=== PATIENT | male | born 1955 | race Caucasian/White ===

== ENCOUNTER → 2016-11-15 | Outpatient (CLI) | payer MEDICARE, MEDICAID ==
[~2016-11-15] MED LIST: ADVAIR 250/5028 PUFF IN; ALBUTEROL200 PUFFS/ IH; AMLODIPINE10 MG PO; AMOXICILLIN 50500 MG PO; ASPIRIN CHILDRE81 M1 PO; AUGMENTIN 875-1 EACH PO; AUGMENTIN1 TA2 PO; BACTRIM DS 8001 TA1 PO; CARVEDILOL6.25 MG PO; CIPRO 500MG TA500 MG PO; CLONIDINE 0.1M0.1 MG PO; CLONIDINE HYDR0.1 MG PO; COREG25 M1 PO; COUMADIN 10MG T10 MG PO; COUMADIN 5MG TAB5 MG PO; COUMADIN 7.5MG7.5 MG PO; CRESTOR20 MG PO; CYMBALTA30 MG PO; DEPAKOTE 250MG250 MG PO; DIABETA2.5 M1 PO; EFFEXOR XR 75MG75 MG PO; EFFEXOR XR150 MG PO; FENOFIBRATE145 MG PO; FISH OIL CONC1000 MG PO; FLAGYL 500MG.500 MG PO; FLEXERIL10 MG PO; GABAPENTIN 600600 MG PO; GLYBURIDE2.5 MG PO; HUMALOG MIX 50/10 ML SC; HUMALOG100 U/M1 SC; HYCODAN 1.5 MG-1 TAB PO; ISOSORBIDE30 MG PO; KEFLEX 500MG.500 MG PO; LEVEMIR100 U/M2 SC; LEVEMIR100 U/ML SC; LISINOPRIL 20MG20 MG NG; LISINOPRIL20 MG PO; LORTAB 5/500 501 TAB PO; LORTAB 500 MG-71 TAB PO; LOTREL 10 MG-401 CAP PO; LYRICA50 MG PO; LYRICA75 MG PO; MEDROL 4MG. DOSE4 MG PO; NASONEX0.05 MG/AC NS; NEURONTIN600 MG PO; Novolog100 U/ML SC; OMEPRAZOLE40 MG PO; OXYCODONE HCL10 M1 PO; OXYCONTIN20 M1 PO; PERCOCET 10 MG1 EACH PO; PERCOCET 650 MG1 TAB PO; PREDNICOT10 MG PO; PREDNISONE 20MG20 MG PO; PYRIDIUM 200MG200 MG PO; RESTORIL 30MG C30 MG PO; SIMVASTATIN40 MG PO; SINGULAIR 10 MG10 MG PO; TAMSULOSIN HYD0.4 M1 PO; TAMSULOSIN HYD0.4 MG PO; TEGRETOL 200MG200 MG PO; TOPAMAX100 MG PO; TOPAMAX50 MG PO; TOPIRAMATE25 MG PO; TRICOR 145 MG145 MG NG; VALIUM5 MG PO; VENLAFAXINE HCL75 M1 PO; VENLAFAXINE HYD75 M1 PO; VENLAFAXINE37.5 MG PO; VITAMIN D31000 IU PO; WARFARIN SOD5 MG PO; XANAX 0.5MG TA0.5 MG PO; ZITHROMAX Z-PA250 M1 PO; ZITHROMAX500 MG PO; ZOCOR20 MG PO; ZOFRAN4 MG PO
--- NOTE | 2016-11-15 16:43 | CARDIOVASCULAR REPORT ---
"Venous Exam Indications: 729.5 Pain in limb. IMPRESSIONS 1. There is no evidence of significant reflux. 2. No evidence of deep or superficial vein thrombosis involving the veins of the left upper extremity History: PMH: Deep vein thrombosis. Pulmonary embolus. Risk factors: Current tobacco use. Obese. PT ON ASA 81MG AND WARFIN Left upper extremity venous duplex. Doppler flow study including spectral analysis, color and antony scale imaging. Location: Vascular laboratory. Patient status: Outpatient. Tables: Venous flow and imaging: + + + |Location |Flow properties | + + + |Left internal jugular|Normal phasicity; spontaneous; compressible | + + + |Left subclavian |Normal phasicity; spontaneous; normal | | |augmentation; compressible | + + + |Left axillary |Normal phasicity; spontaneous; normal | | |augmentation; compressible | + + + |Left brachial |Normal phasicity; spontaneous; normal | | |augmentation; compressible | + + + |Left cephalic |Normal phasicity; spontaneous; normal | | |augmentation; compressible | + + + |Left basilic |Normal phasicity; spontaneous ; normal | | |augmentation; compressible | + + + |Left radial |Compressible | + + + |Left ulnar |Compressible | + + + (Report amended ) Electronically signed by: Saúl Gaspar [id number]"
== END ==
LOC: RT 16:06
DX: M79.89 Other specified soft tissue disorders (principal)

== ENCOUNTER 2017-06-01 17:56 | Emergency (ER) | payer MEDICARE, MEDICAID ==
[~2017-06-01] VITALS: Ht 190.5 cm; Wt 136.1 kg
[2017-06-01] MEDS ORDERED: AUGMENTIN 875-1 EACH PO (18:53)
[2017-06-01] MEDS ORDERED: ERYTHROMYC3.5 GM/TUB OP (18:54)
[2017-06-01] MEDS ORDERED: ETODOLAC200 MG PO (18:55)
--- NOTE | 2017-06-01 18:55 | Emergency Room Report ---
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 N Clinical Suspician of Infection? N Mental Status: 1 - Regular (Normal Baseline) Sepsis Risk:Low Sepsis Risk Have you (or family members/close friends) recently traveled outside the [place]? N If Yes, where/when: Have you had exposure to infectious disease within the past month? TB? Other? Specify: Source patient, RN notes reviewed, family, RN/MD Exam Limitations no limitations Comment This is a 61-year-old male patient presenting to the emergency room with a flareup of his chronic cervical pain, also itchy eyes and congestion for the past 2-3 days. Patient stated that he has been in pain management before, however he was terminated from the clinic due to failure to show up for a pill count, while being out of state. Patient denies any recent travel or exposure to sick contacts. ALLERGIES Coded Allergies: No Known Allergies (06/01/17) Home Medications Active Scripts OXYCODONE HCL (Oxycodone HCl) 10 MG PO 5XDAY PRN pain #150 TAB Prov: 12/08/15 Cyclobenzaprine Hcl (Flexeril) 5 MG PO BID #6 TAB Prov: 11/17/16 Albuterol (Albuterol 90MCG/Puff Inhaler) 1 PUFF IH QID #1 INH Prov: 07/23/15 Montelukast Sodium (Singulair 10MG) 10 MG PO DAILY #30 TAB Prov: 07/23/15 ONDANSETRON HCL (Zofran 4MG Tab) 4 MG PO Q6HP PRN nausea/vomiting #24 TAB Prov: 10/12/13 Reported Medications VENLAFAXINE HCL (Effexor XR 150MG) 150 MG PO QAM Carvedilol (Coreg) 25 MG PO BID Lisinopril 40 MG PO DAILY #30 WARFARIN SOD (Warfarin 5MG) 5 MG PO T,S,SUN Omeprazole (Omeprazole 40MG) 40 MG PO DAILY TAMSULOSIN HCL (Tamsulosin 0.4MG) 0.4 MG PO QHS Amlodipine Besylate (Amlodipine) 10 MG PO DAILY Oxycodone 10 Mg\[id number] (Oxycodone-Acetaminophen 10-325) 1 TAB PO 5XDAILYP PRN CHRONIC PAIN CHOLECALCIFEROL (VITAMIN D3) (Vitamin D) 1,000 IUNITS PO DAILY Fish Oil (Fish Oil Concentrate) 1,000 MG PO BID Rosuvastatin Calcium (Crestor) 40 MG PO QHS Insulin Detemir (Levemir 10ML VIAL) 0 UNITS SC DAILY INSULIN ASPART (Novolog) 4 U SC AC Alprazolam (Xanax 0.5MG) 0.5 MG PO BID Clonidine Hcl (Clonidine) 0.1 MG PO DAILY Pregabalin (Lyrica 75MG) 75 MG PO BID WARFARIN SOD (Warfarin 5MG) 7 MG PO DAILY VENLAFAXINE HCL (Venlafaxine HCl ER) 75 MG PO QHS FENOFIBRATE NANOCRYSTALLIZED (Fenofibrate) 145 MG PO DAILY #30 Simvastatin (Simvastatin 40MG Tab) 20 MG PO DAILY #30 Isosorbide Mononitrate (Isosorbide Mononitrate ER) 30 MG PO DAILY #30 FLUTICASONE/SALMETEROL (Advair 250-50 Diskus) 1 PUFF IN BID History Medical History General CAD? No Angina: No MA: No Hypertension? Yes Hyperlipidemia? Yes CHF? No DVT? Yes PE? Yes COPD? Yes Asthma? No Anemia? No GERD? Yes Gastric ulcers? No GI Bleed? No Hernia? No Thyroid Problems? No Hypothyroidism? No CVA? No Seizures? No Diabetes? Yes Insulin Dependent: Yes Insulin Pump: No Home FSBS? Yes Renal Insuffiency? No End Stage Renal Disease? No UTI? No Stones? No BPH? Yes GB Disease: No Nephritic Syndrome? No Asplenia? No Hepatitis? No Sickle Cell Disease? No Arthritis? No Migraines? No Cataracts? No Glaucoma? No MRSA? No HIV? No TB? No Anxiety? Yes Depression? 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 No Immunization Hx Ped.Immunizations UTD Yes DT/Tetanus 1-4 YRS Surgical Hx Previous Surgery?Y KIDNEY REMOVED SHOULDER STOMACH SURGERY LEFT ELBOW RIGHT ARM Back Surgery LEFT KIDNEY STANISLAV FILTER LEFT PARTIAL KIDNEY STOMACH SURGERY BACK SURGERY LUMBAR Social History Smoking Hx Smoker: Current Every Day Smoker Tobacco: Yes Type Cigarettes Packs/day 1 1/2 - 2 Packs Alcohol Alcohol: No Review of Systems All Other Systems Reviewed and Negative Eyes drainage ENT nose congestion, throat pain. Musculoskeletal see HPI, neck pain Physical Exam Vital Signs Vital Signs Date Time Temp Pulse Resp B/P Pulse O2 O2 Flow FiO2 Ox Delivery Rate 06/01 1942 97.5 61 18 176/99 95 06/01 1929 18 06/01 1811 97.9 88 18 178/95 98 General Appearance normal appearance, WD/WN, mild distress Eye Exam - bilateral eye PERRL, bilateral eye EOMI, bilateral eye eyelid inflammation, bilateral eye other (hyperemic conjunctivae) Ear, Nose, Throat hearing grossly normal, normal ENT inspection, nasal congestion, pharyngeal erythema Neck normal inspection, supple, full range of motion, paraspinal cervical tenderness Respiratory Status Yes: trachea midline, chest symmetrical, non tender chest. No: respiratory distress. Lung Sounds bilateral: normal breath sounds, lungs clear. 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 No Comment She appears in stable medical condition, no acute distress. Advised patient of need to follow-up on his PCPs referral to a new pain clinic, will say he home with prescription for eye ointment and oral antibiotics. If no better to follow- up with PCP within 2 days. Results/Orders Current Medication Orders Sig/Silas Start time Last Medication Dose Route Stop Time Status Admin Miscellaneous 0 .STK-MED ONE 06/01 1922 DC XX Amoxicillin/ 0 .STK-MED ONE 06/01 1921 DC Clavulanate Potassium PO Ondansetron HCl 0 .STK-MED ONE 06/01 1921 DC .ROUTE Morphine Sulfate 0 .STK-MED ONE 06/01 1918 DC .ROUTE Amoxicillin/ 500 MG ONCE ONE 06/010 DC 06/01 Clavulanate Potassium PO 06/01 Erythromycin 1 GM ONCE ONE 06/01 1900 DC 06/01 OP 06/01 Morphine Sulfate 8 MG ONCE ONE 06/01 1900 DC 06/01 IM 06/01 Ondansetron HCl 4 MG ONCE ONE 06/01 1900 DC 06/01 IM 06/01 Departure Departure Time of Disposition 185 Disposition DC Home or Self Care(routine) Clinical Impression Primary Impression: Sinusitis Qualifiers: Sinusitis location: maxillary Chronicity: acute Recurrence: non- recurrent Qualified Code: J01.00 - Acute maxillary sinusitis, unspecified Secondary Impressions: Chronic cervical pain Conjunctivitis Qualifiers: Conjunctivitis type: chronic Chronic conjunctivitis type: bacterial Laterality: bilateral Qualified Code: H10.403 - Unspecified chronic conjunctivitis, bilateral Condition STABLE Referrals RADHA MITCHELL (Family): Tomorrow[facility]Call Office Patient Instructions DI for Chronic Pain -- Adult, DI for Conjunctivitis, DI for Sinusitis Additional Instructions Please call Dr. Mitchell's office and follow-up on the referral to pain management in the morning. Please take the medications prescribed as instructed. If no better follow-up with PCP in 2-3 days. Discharge Counseling Counseled pt/family regarding diagnosis, medications/RX, home care, follow up needs Comment Please call Dr. Mitchell's office and follow-up on the referral to pain management in the morning. Please take the medications prescribed as instructed. If no better follow-up with PCP in 2-3 days. Prescriptions Current Visit Scripts Amoxicillin/Potassium Clav (Augmentin 875-125 Tablet) 1 EACH PO BID #20 TAB Erythromycin (Erythromycin Ophth Oint 3.5GM Tube) 1 GM OP QID #1 OIN Ref 1 use 1/2 inch in each subconjunctival sac 4x/day for the next 10 days Etodolac 200 MG PO QIDP PRN pain #20 CAP ED Critical Care Critical Care No at [id number]
[2017-06-01 19:42] VITALS: BP 176/99
== END 2017-06-01 19:42 | disposition home or self-care (01) ==
LOC: ER 17:56
DX: J01.00 Acute maxillary sinusitis, unspecified (principal); H10.403 Unspecified chronic conjunctivitis, bilateral; I10 Essential (primary) hypertension; J44.9 Chronic obstructive pulmonary disease, unspecified; K21.9 Gastro-esophageal reflux disease without esophagitis; E11.9 Type 2 diabetes mellitus without complications; Z79.4 Long term (current) use of insulin; F41.8 Other specified anxiety disorders; Z72.0 Tobacco use
CPT/HCPCS: J2405

== ENCOUNTER 2017-07-01 21:07 | Emergency (ER) | payer MEDICARE, MEDICAID ==
[~2017-07-01] VITALS: Ht 190.5 cm; Wt 137.0 kg
[2017-07-01 21:34] LABS: HEMOGLOBIN 14.5 g/dL (14.1-18.0); LYMPH # 1.5 K/mm3 (0.7-4.5); LYMPH % 20.8 % (10-50)
[2017-07-01 22:07] LABS: BUN 22 mg/dL (7-18); GFR (ESTIMATED) 28 ML/MIN (>60)
--- NOTE | 2017-07-01 22:26 | Emergency Room Report ---
History of Present Illness Time Seen by 2109 Presenting Problem in Triage Pt arrived:Walked Presenting Problem:MIDLINE CP THAT RADIATES TO THE LEFT SIDE OF CHEST AND DOWN HIS RIGHT ARM AND LEG. 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 N Clinical Suspician of Infection? N Mental Status: 1 - Regular (Normal Baseline) Sepsis Risk: Have you (or family members/close friends) recently traveled outside the [place]? N If Yes, where/when: Have you had exposure to infectious disease within the past month? N TB? Other? Specify: Source patient, RN notes reviewed, old records Exam Limitations no limitations Comment pt with lower ant chest pain over the last few days - pt has hx of diabetes and htn - he reports pain as sharp and nonradiating - pt with neg cath in 2012 and maybe gxt last couple of yrs Cardiac Chest Pain Chest pain indicative of cardiac No Timing/Duration this evening Severity moderate ALLERGIES Coded Allergies: No Known Allergies (06/01/17) Home Medications Active Scripts OXYCODONE HCL (Oxycodone HCl) 10 MG PO 5XDAY PRN pain #150 TAB Prov: 12/08/15 Cyclobenzaprine Hcl (Flexeril) 5 MG PO BID #6 TAB Prov: 11/17/16 Albuterol (Albuterol 90MCG/Puff Inhaler) 1 PUFF IH QID #1 INH Prov: 07/23/15 Montelukast Sodium (Singulair 10MG) 10 MG PO DAILY #30 TAB Prov: 07/23/15 Amoxicillin/Potassium Clav (Augmentin 875-125 Tablet) 1 EACH PO BID #20 TAB Prov: 06/01/17 Erythromycin (Erythromycin Ophth Oint 3.5GM Tube) 1 GM OP QID #1 OIN Ref 1 Prov: 06/01/17 ONDANSETRON HCL (Zofran 4MG Tab) 4 MG PO Q6HP PRN nausea/vomiting #24 TAB Prov: 10/12/13 Discontinued Scripts Etodolac 200 MG PO QIDP PRN pain #20 CAP Prov: 06/01/17 DC: 06/30/17 0000 Reported Medications VENLAFAXINE HCL (Effexor XR 150MG) 150 MG PO QAM Carvedilol (Coreg) 25 MG PO BID Lisinopril 40 MG PO DAILY #30 WARFARIN SOD (Warfarin 5MG) 5 MG PO T,S,SUN Omeprazole (Omeprazole 40MG) 40 MG PO DAILY TAMSULOSIN HCL (Tamsulosin 0.4MG) 0.4 MG PO QHS Amlodipine Besylate (Amlodipine) 10 MG PO DAILY Oxycodone 10 Mg\[id number] (Oxycodone-Acetaminophen 10-325) 1 TAB PO 5XDAILYP PRN CHRONIC PAIN CHOLECALCIFEROL (VITAMIN D3) (Vitamin D) 1,000 IUNITS PO DAILY Fish Oil (Fish Oil Concentrate) 1,000 MG PO BID Rosuvastatin Calcium (Crestor) 40 MG PO QHS Insulin Detemir (Levemir 10ML VIAL) 0 UNITS SC DAILY INSULIN ASPART (Novolog) 4 U SC AC Alprazolam (Xanax 0.5MG) 0.5 MG PO BID Clonidine Hcl (Clonidine) 0.1 MG PO DAILY Pregabalin (Lyrica 75MG) 75 MG PO BID WARFARIN SOD (Warfarin 5MG) 7 MG PO DAILY VENLAFAXINE HCL (Venlafaxine HCl ER) 75 MG PO QHS FENOFIBRATE NANOCRYSTALLIZED (Fenofibrate) 145 MG PO DAILY #30 Simvastatin (Simvastatin 40MG Tab) 20 MG PO DAILY #30 Isosorbide Mononitrate (Isosorbide Mononitrate ER) 30 MG PO DAILY #30 FLUTICASONE/SALMETEROL (Advair 250-50 Diskus) 1 PUFF IN BID History Medical History General CAD? No Angina: No [place]: No Hypertension? Yes Hyperlipidemia? Yes CHF? No DVT? Yes PE? Yes COPD? Yes Asthma? No Anemia? No GERD? Yes Gastric ulcers? No GI Bleed? No Hernia? No Thyroid Problems? No Hypothyroidism? No CVA? No Seizures? No Diabetes? Yes Insulin Dependent: Yes Insulin Pump: No Home FSBS? Yes Renal Insuffiency? No End Stage Renal Disease? No UTI? No Stones? No BPH? Yes GB Disease: No Nephritic Syndrome? No Asplenia? No Hepatitis? No Sickle Cell Disease? No Arthritis? No Migraines? No Cataracts? No Glaucoma? No MRSA? No HIV? No TB? No Anxiety? Yes Depression? 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 No Immunization Hx DT/Tetanus 1-4 YRS Surgical Hx Previous Surgery?Y KIDNEY REMOVED SHOULDER STOMACH SURGERY LEFT ELBOW RIGHT ARM Back Surgery LEFT KIDNEY STANISLAV FILTER LEFT PARTIAL KIDNEY STOMACH SURGERY BACK SURGERY LUMBAR Social History Smoking Hx Smoker: Current Every Day Smoker Tobacco: Yes Type Cigarettes Packs/day 1 1/2 - 2 Packs Are you/the child exposed to second-hand smoke: Yes Alcohol Alcohol: No Drugs none Additionial History Additional History was seen at [facility] yesterday and was felt pain was resp related- Review of Systems All Other Systems Reviewed and Negative Constitutional denies fever Eyes denies drainage ENT denies: ear discharge, epistaxis, throat pain. Respiratory denies cough, denies shortness of breath, denies wheezing Cardiovascular see HPI, chest pain, denies palpitations, denies syncope Gastrointestinal denies abdominal pain, denies diarrhea, denies vomiting Genitourinary denies: dysuria, frequency, hesitancy, hematuria. Musculoskeletal denies back pain, denies joint pain, denies joint swelling, denies neck pain Skin denies rash Psychiatric/Neurological denies headache, denies seizure Physical Exam Vital Signs Vital Signs Date Time Temp Pulse Resp B/P Pulse O2 O2 Flow FiO2 Ox Delivery Rate 07/018 98.8 70 20 153/82 97 07/01 2330 70 20 153/82 97 07/01 2205 20 07/01 2201 78 20 153/82 97 07/011 98.8 78 29 149/78 97 - WBC >12,000 or <4,000 or 10% bands? 2 or more SIRS Criteria Met? B/P:153/82 MAP:101 Creatinine >2.0? UA output<0.5ml/kg/hr for 2 hrs? Platelet count >100,000? Lactate >2.0mmol/1? INR >1.2 or PTT > than 60 sec? Evidence of Organ Dysfunction? Provider documented clinical suspician of infection? N Sepsis Criteria Count: 1 Sepsis Risk: General Appearance no apparent distress Eye Exam - bilateral eye PERRL, bilateral eye EOMI Ear, Nose, Throat normal ENT inspection Neck supple Respiratory Status No: respiratory distress. Lung Sounds bilateral: lungs clear. 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 No Results/Orders Laboratory Tests 07/01/172319: Troponin I < 0.02 07/01/172109: Sodium 139, Potassium 4.4, Chloride 103, Carbon Dioxide 28, BUN 22 H, Creatinine 2.4 H, Estimated Creat Clear 62, Estimated GFR (MDRD) 28, Glucose 135 H, Calcium 7.7 L, Total Bilirubin 0.4, AST 13 L, ALT 23, Alkaline Phosphatase 36 L, Creatine Kinase 165, CK-MB (CK-2) Rel Index 0.8, CK and CKMB Interp 1.4, Troponin I < 0.02, Total Protein 6.1 L, Albumin 3.0 L, Globulin 3.1, Albumin/Globulin Ratio 1.0 L, PT 35.8 H, INR 3.27 H, APTT 36.1 H, WBC 7.1, RBC 4.63, Hgb 14.5, Hct 42.1, MCV 90.9, RDW 13.3, Plt Count 122 L, MPV 8.6 , Gran % 69.2, Gran # 4.9, Lymphocytes % 20.8, Monocytes % 6.9, Eosinophils % 2.5, Basophils % 0.6, Lymphocytes # 1.5, Monocytes # 0.5, Eosinophils # 0.2, Basophils # 0.0, PUBS MCHC 34.6, MCH 31.4 H Current Medication Orders Sig/Silas Start time Last Medication Dose Route Stop Time Status Admin Famotidine 0 .STK-MED ONE 07/01 2250 DC IV Metoclopramide HCl 0 .STK-MED ONE 07/01 2250 DC .ROUTE Famotidine 20 MG ONCE ONE 07/01 2245 DC 07/01 IV 07/01 2246 225 Metoclopramide HCl 10 MG ONCE ONE 07/01 2245 DC 07/01 IVP 07/01 2246 225 Sodium Chloride 8 ML ONCE ONE 07/015 DC 07/01 IV 07/01 2246 225 Nitroglycerin 0.4 MG ONCE ONE 07/01 2215 DC 07/01 SL 07/01 Nitroglycerin 0 .STK-MED ONE 07/01 2204 DC SL Aspirin 325 MG ONCE ONE 07/01 2130 DC 07/01 PO 07/01 Sodium Chloride 10 ML PRN PRN 07/01 2130 AC IV 07/02 2126 Aspirin 0 .STK-MED ONE 07/01 2119 DC .ROUTE Aspirin 0 .STK-MED ONE 07/01 2117 DC .ROUTE Orders Procedure Date/time Status TROPONIN I 07/01 2316 Complete PARTIAL THROMBOPLASTIN TIME 07/01 2225 Complete PROTHROMBIN TIME 07/01 2225 Complete 12 LEAD EKG-JULISSA (INITIAL) 07/01 2126 Active ELECTROCARDIOGRAM REQUEST 07/01 2126 Active CHEST-PORTABLE 07/01 2126 Active IV SALINE LOCK 07/01 2126 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 of ischemic chgs XRAY/CT/US XRAY/CT/US XRAY chest XR interpretation by reviewed by me Xray Results normal/NAD Departure Departure Time of Disposition 0000 Disposition DC Home or Self Care(routine) Clinical Impression Primary Impression: Chest pain Qualifiers: Chest pain type: other chest pain Qualified Code: R07.89 - Other chest pain Secondary Impressions: Renal insufficiency Condition STABLE Referrals RADHA TATE (Family) discussed with dr her Patient Instructions DI for Chest Pain Additional Instructions use regular meds and see card at tuesday at 0900 Discharge Counseling Counseled pt/family regarding diagnosis, test results, medications/RX, follow up needs ED Critical Care Critical Care No at 0002
--- NOTE | 2017-07-01 22:26 | Emergency Room Report ---
History of Present Illness Time Seen by [id number] Presenting Problem in Triage Pt arrived:Walked Presenting Problem:MIDLINE CP THAT RADIATES TO THE LEFT SIDE OF CHEST AND DOWN HIS RIGHT ARM AND LEG. PT STATED HE WAS DX WITH PNU YESTERDAY AND WAS TOLD IT WAS CAUSING THE CHEST PAIN (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 N Clinical Suspician of Infection? N Mental Status: 1 - Regular (Normal Baseline) Sepsis Risk: Have you (or family members/close friends) recently traveled outside the [place]? N If Yes, where/when: Have you had exposure to infectious disease within the past month? N TB? Other? Specify: Source patient, RN notes reviewed, old records Exam Limitations no limitations Comment pt with lower ant chest pain over the last few days - pt has hx of diabetes and htn - he reports pain as sharp and nonradiating - pt with neg cath in 2012 and maybe gxt last couple of yrs Cardiac Chest Pain Chest pain indicative of cardiac No Timing/Duration this evening Severity moderate ALLERGIES Coded Allergies: No Known Allergies (06/01/17) Home Medications Active Scripts OXYCODONE HCL (Oxycodone HCl) 10 MG PO 5XDAY PRN pain #150 TAB Prov: 12/08/15 Cyclobenzaprine Hcl (Flexeril) 5 MG PO BID #6 TAB Prov: 11/17/16 Albuterol (Albuterol 90MCG/Puff Inhaler) 1 PUFF IH QID #1 INH Prov: 07/23/15 Montelukast Sodium (Singulair 10MG) 10 MG PO DAILY #30 TAB Prov: 07/23/15 Amoxicillin/Potassium Clav (Augmentin 875-125 Tablet) 1 EACH PO BID #20 TAB Prov: 06/01/17 Erythromycin (Erythromycin Ophth Oint 3.5GM Tube) 1 GM OP QID #1 OIN Ref 1 Prov: 06/01/17 ONDANSETRON HCL (Zofran 4MG Tab) 4 MG PO Q6HP PRN nausea/vomiting #24 TAB Prov: 10/12/13 Discontinued Scripts Etodolac 200 MG PO QIDP PRN pain #20 CAP Prov: 06/01/17 DC: 06/30/17 0000 Reported Medications VENLAFAXINE HCL (Effexor XR 150MG) 150 MG PO QAM Carvedilol (Coreg) 25 MG PO BID Lisinopril 40 MG PO DAILY #30 WARFARIN SOD (Warfarin 5MG) 5 MG PO T,S,SUN Omeprazole (Omeprazole 40MG) 40 MG PO DAILY TAMSULOSIN HCL (Tamsulosin 0.4MG) 0.4 MG PO QHS Amlodipine Besylate (Amlodipine) 10 MG PO DAILY Oxycodone 10 Mg\[id number] (Oxycodone-Acetaminophen 10-325) 1 TAB PO 5XDAILYP PRN CHRONIC PAIN CHOLECALCIFEROL (VITAMIN D3) (Vitamin D) 1,000 IUNITS PO DAILY Fish Oil (Fish Oil Concentrate) 1,000 MG PO BID Rosuvastatin Calcium (Crestor) 40 MG PO QHS Insulin Detemir (Levemir 10ML VIAL) 0 UNITS SC DAILY INSULIN ASPART (Novolog) 4 U SC AC Alprazolam (Xanax 0.5MG) 0.5 MG PO BID Clonidine Hcl (Clonidine) 0.1 MG PO DAILY Pregabalin (Lyrica 75MG) 75 MG PO BID WARFARIN SOD (Warfarin 5MG) 7 MG PO DAILY VENLAFAXINE HCL (Venlafaxine HCl ER) 75 MG PO QHS FENOFIBRATE NANOCRYSTALLIZED (Fenofibrate) 145 MG PO DAILY #30 Simvastatin (Simvastatin 40MG Tab) 20 MG PO DAILY #30 Isosorbide Mononitrate (Isosorbide Mononitrate ER) 30 MG PO DAILY #30 FLUTICASONE/SALMETEROL (Advair 250-50 Diskus) 1 PUFF IN BID History Medical History General CAD? No Angina: No VA: No Hypertension? Yes Hyperlipidemia? Yes CHF? No DVT? Yes PE? Yes COPD? Yes Asthma? No Anemia? No GERD? Yes Gastric ulcers? No GI Bleed? No Hernia? No Thyroid Problems? No Hypothyroidism? No CVA? No Seizures? No Diabetes? Yes Insulin Dependent: Yes Insulin Pump: No Home FSBS? Yes Renal Insuffiency? No End Stage Renal Disease? No UTI? No Stones? No BPH? Yes GB Disease: No Nephritic Syndrome? No Asplenia? No Hepatitis? No Sickle Cell Disease? No Arthritis? No Migraines? No Cataracts? No Glaucoma? No MRSA? No HIV? No TB? No Anxiety? Yes Depression? 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 No Immunization Hx DT/Tetanus 1-4 YRS Surgical Hx Previous Surgery?Y KIDNEY REMOVED SHOULDER STOMACH SURGERY LEFT ELBOW RIGHT ARM Back Surgery LEFT KIDNEY STANISLAV FILTER LEFT PARTIAL KIDNEY STOMACH SURGERY BACK SURGERY LUMBAR Social History Smoking Hx Smoker: Current Every Day Smoker Tobacco: Yes Type Cigarettes Packs/day 1 1/2 - 2 Packs Are you/the child exposed to second-hand smoke: Yes Alcohol Alcohol: No Drugs none Additionial History Additional History was seen at [facility] yesterday and was felt pain was resp related- Review of Systems All Other Systems Reviewed and Negative Constitutional denies fever Eyes denies drainage ENT denies: ear discharge, epistaxis, throat pain. Respiratory denies cough, denies shortness of breath, denies wheezing Cardiovascular see HPI, chest pain, denies palpitations, denies syncope Gastrointestinal denies abdominal pain, denies diarrhea, denies vomiting Genitourinary denies: dysuria, frequency, hesitancy, hematuria. Musculoskeletal denies back pain, denies joint pain, denies joint swelling, denies neck pain Skin denies rash Psychiatric/Neurological denies headache, denies seizure Physical Exam Vital Signs Vital Signs Date Time Temp Pulse Resp B/P Pulse O2 O2 Flow FiO2 Ox Delivery Rate 07/018 98.8 70 20 153/82 97 07/01 2330 70 20 153/82 97 07/01 2205 20 07/01 2201 78 20 153/82 97 07/011 98.8 78 29 149/78 97 - WBC >12,000 or <4,000 or 10% bands? 2 or more SIRS Criteria Met? B/P:153/82 MAP:101 Creatinine >2.0? UA output<0.5ml/kg/hr for 2 hrs? Platelet count >100,000? Lactate >2.0mmol/1? INR >1.2 or PTT > than 60 sec? Evidence of Organ Dysfunction? Provider documented clinical suspician of infection? N Sepsis Criteria Count: 1 Sepsis Risk: General Appearance no apparent distress Eye Exam - bilateral eye PERRL, bilateral eye EOMI Ear, Nose, Throat normal ENT inspection Neck supple Respiratory Status No: respiratory distress. Lung Sounds bilateral: lungs clear. 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 No Results/Orders Laboratory Tests 07/01/172319: Troponin I < 0.02 07/01/172109: Sodium 139, Potassium 4.4, Chloride 103, Carbon Dioxide 28, BUN 22 H, Creatinine 2.4 H, Estimated Creat Clear 62, Estimated GFR (MDRD) 28, Glucose 135 H, Calcium 7.7 L, Total Bilirubin 0.4, AST 13 L, ALT 23, Alkaline Phosphatase 36 L, Creatine Kinase 165, CK-MB (CK-2) Rel Index 0.8, CK and CKMB Interp 1.4, Troponin I < 0.02, Total Protein 6.1 L, Albumin 3.0 L, Globulin 3.1, Albumin/Globulin Ratio 1.0 L, PT 35.8 H, INR 3.27 H, APTT 36.1 H, WBC 7.1, RBC 4.63, Hgb 14.5, Hct 42.1, MCV 90.9, RDW 13.3, Plt Count 122 L, MPV 8.6 , Gran % 69.2, Gran # 4.9, Lymphocytes % 20.8, Monocytes % 6.9, Eosinophils % 2.5, Basophils % 0.6, Lymphocytes # 1.5, Monocytes # 0.5, Eosinophils # 0.2, Basophils # 0.0, PUBS MCHC 34.6, MCH 31.4 H Current Medication Orders Sig/Silas Start time Last Medication Dose Route Stop Time Status Admin Famotidine 0 .STK-MED ONE 07/01 2250 DC IV Metoclopramide HCl 0 .STK-MED ONE 07/01 2250 DC .ROUTE Famotidine 20 MG ONCE ONE 07/01 2245 DC 07/01 IV 07/01 2246 225 Metoclopramide HCl 10 MG ONCE ONE 07/01 2245 DC 07/01 IVP 07/01 2246 225 Sodium Chloride 8 ML ONCE ONE 07/015 DC 07/01 IV 07/01 2246 225 Nitroglycerin 0.4 MG ONCE ONE 07/01 2215 DC 07/01 SL 07/01 Nitroglycerin 0 .STK-MED ONE 07/01 2204 DC SL Aspirin 325 MG ONCE ONE 07/01 2130 DC 07/01 PO 07/01 Sodium Chloride 10 ML PRN PRN 07/01 2130 AC IV 07/02 2126 Aspirin 0 .STK-MED ONE 07/01 2119 DC .ROUTE Aspirin 0 .STK-MED ONE 07/01 2117 DC .ROUTE Orders Procedure Date/time Status TROPONIN I 07/01 2316 Complete PARTIAL THROMBOPLASTIN TIME 07/01 2225 Complete PROTHROMBIN TIME 07/01 2225 Complete 12 LEAD EKG-JULISSA (INITIAL) 07/01 2126 Active ELECTROCARDIOGRAM REQUEST 07/01 2126 Active CHEST-PORTABLE 07/01 2126 Active IV SALINE LOCK 07/01 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 of ischemic chgs XRAY/CT/US XRAY/CT/US XRAY chest XR interpretation by reviewed by me Xray Results normal/NAD Departure Departure Time of Disposition 0000 Disposition DC Home or Self Care(routine) Clinical Impression Primary Impression: Chest pain Qualifiers: Chest pain type: other chest pain Qualified Code: R07.89 - Other chest pain Secondary Impressions: Renal insufficiency Condition STABLE Referrals RADHA TATE (Family) discussed with dr her Patient Instructions DI for Chest Pain Additional Instructions use regular meds and see card at tuesday at 0900 Discharge Counseling Counseled pt/family regarding diagnosis, test results, medications/RX, follow up needs ED Critical Care Critical Care No at 0002
[2017-07-01 23:58] VITALS: BP 153/82
--- NOTE | 2017-07-02 10:13 | RADIOLOGY REPORT PS360 ---
CHEST-PORTABLE COMPARISON: Portable upright chest 05/20/2015 HISTORY: Chest pain TECHNIQUE: Portable upright chest FINDINGS: This is a poor inspiration however lung edwards are clear of infiltrate. The cardiac silhouette and vascularity are normal and is no pleural fluid. There are monitor lines overlying the chest. IMPRESSION: Poor inspiration, grossly negative chest
--- OUTSIDE RECORDS SUMMARY | 2017-07-08 11:40 | External Medical Summary Rpt | CCD ---
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 Substance Reaction Severity NO KNOWN ALLERGIES Unknown Unknown Clinical Alert Notifications Alert Diabetes: no A1C in the last 6 months Diabetes: no eye exam in the last 365 days Diabetes: no influenza vaccine in the last 365 days Diabetes: no lipid panel in the last 365 days Medications Na ND Rx Da Fi Fi Am Da Di Ph RX Ph St me C No te ll ll ou ys ag ar # ys at rm s nt no ma ic us Or Da si cy ia de te s n re d AZ 68 01 0 No IT 08 -1 HR 40 7- Lo OM 27 20 ng YC 80 14 er IN 1 Ac 25 ti 0 ve MG TA BL ET TU 61 01 0 No SS 57 -1 IG 00 7- Lo ON 08 20 ng 10 14 er 5- 1 1. Ac 5 ti MG ve TA BL ET CE 00 05 0 No FT 78 -0 RI 19 8- Lo AX 32 20 ng ON 89 13 er E 5 1 Ac GM ti ve AL Me 00 05 0 No th 00 -0 yl 90 8- Lo pr 19 20 ng ed 00 13 er ni 9 so Ac lo ti ne ve So d Jarrell cc in a KE 00 05 0 No TO 40 -0 RO 93 8- Lo LA 79 20 ng C 50 13 er 30 1 Ac MG ti /M ve L AL Sa 63 05 0 No li 80 -0 ne 70 8- Lo 10 20 ng Fl 07 13 er us 5 h Ac 10 ti ML ve Sy ri ng e Me 00 05 0 No th 00 -0 yl 90 8- Lo pr 19 20 ng ed 00 13 er ni 9 so Ac lo ti ne ve So d Jarrell cc in a Sa 63 05 0 No li 80 -0 ne 70 8- Lo 10 20 ng Fl 07 13 er us 5 h Ac 10 ti ML ve Sy ri ng e Le 51 04 0 No vo 07 -2 fl 90 0- Lo ox 03 20 ng ac 52 13 er in 0 Ac 50 ti 0M ve G Ta bl et Ph 00 04 0 No en 60 -2 az 35 0- Lo op 14 20 ng yr 22 13 er id 1 in Ac e ti 20 ve 0M G Ta bl et Le 51 04 0 No vo 07 -2 fl 90 0- Lo ox 03 20 ng ac 52 13 er in 0 Ac 50 ti 0M ve G Ta bl et Ph 00 04 0 No en 60 -2 az 35 0- Lo op 14 20 ng yr 22 13 er id 1 in Ac e ti 20 ve 0M G Ta bl et Sa 63 03 0 No li 80 -1 ne 70 3- Lo 10 20 ng Fl 07 13 er us 5 h Ac 10 ti ML ve Sy ri ng e KE 00 03 0 No TO 40 -1 RO 93 3- Lo LA 79 20 ng C 50 13 er 30 1 Ac MG ti /M ve L AL DI 00 10 10 0 60 30 EA 24 WE Ac AZ 17 -2 -[address] ti EP 23 5- 5- 00 SI 63 ve AM 92 20 20 DE MU 5 67 11 11 RR 0 PH AY MG AR D MA TA CY BL ET OF CY NT HI AN A AL 67 10 10 0 30 30 EA 24 WE Ac OH 25 -0 -[address] ti AZ 30 4- 4- 00 SI 15 ve OL 90 20 20 DE MU AM 11 11 11 RR 1 PH AY 0. AR D 5 MA MG CY TA OF BL ET CY NT HI AN A Vital Signs 10-12-2013 22:10 Name Value Interpretat Reference Comment ion Range Body 98.2 [degF] Temperature BP 78 mm[Hg] Diastolic BP Systolic 142 mm[Hg] Heart 79 /min Rate/Pulse O2% 97 % Respiratory 20 /min Rate 10-12-2013 22:02 Name Value Interpretat Reference Comment ion Range Body 98.6 [degF] Temperature 10-12-2013 20:10 Name Value Interpretat Reference Comment ion Range BP 78 mm[Hg] Diastolic BP Systolic 148 mm[Hg] Heart 87 /min Rate/Pulse O2% 96 % Respiratory 18 /min Rate 01-31-2013 01:43 Name Value Interpretat Reference Comment ion Range BP 95 mm[Hg] Diastolic BP Systolic 153 mm[Hg] Heart 71 /min Rate/Pulse O2% 95 % Respiratory 18 /min Rate 01-30-2013 23:24 Name Value Interpretat Reference Comment ion Range BP 95 mm[Hg] Diastolic BP Systolic 159 mm[Hg] Heart 77 /min Rate/Pulse Respiratory 20 /min Rate 01-30-2013 23:18 Name Value Interpretat Reference Comment ion Range O2% 96 % 01-12-2013 23:59 Name Value Interpretat Reference Comment ion Range BP 78 mm[Hg] Diastolic BP Systolic 150 mm[Hg] Heart 72 /min Rate/Pulse O2% 96 % Respiratory 20 /min Rate 01-12-2013 21:48 Name Value Interpretat Reference Comment ion Range Body 97.6 [degF] Temperature BP 60 mm[Hg] Diastolic BP Systolic 150 mm[Hg] Heart 68 /min Rate/Pulse O2% 97 % Respiratory 20 /min Rate 12-06-2012 21:26 Name Value Interpretat Reference Comment ion Range Body 97.7 [degF] Temperature BP 109 mm[Hg] Diastolic BP Systolic 163 mm[Hg] Heart 72 /min Rate/Pulse O2% 97 % Respiratory 20 /min Rate 12-06-2012 20:05 Name Value Interpretat Reference Comment ion Range BP 101 mm[Hg] Diastolic BP Systolic 167 mm[Hg] Heart 69 /min Rate/Pulse O2% 98 % Respiratory 20 /min Rate Results Labs Lab Lab Date Result Refere Interp Status Commen Order Detail nces retati t Range on Serum or plasma troponin i.cardiac measu (07-01-2017 23:20) Serum < 0.02 0.00-0. complet or 017 ng/mL 06 ed plasma 23:20 troponi n i.cardi ac measu Cardiac enzymes (07-01-2017 21:10) Serum = 0.8 0-4.0 complet or 017 U/L ed plasma 21:10 creatin e kinase MB (CK-M Serum = 1.4 0.0-3.6 complet or 017 ng/mL ed plasma 21:10 creatin e kinase MB measu Serum = 165 39-308 complet or 017 U/L ed plasma 21:10 creatin e kinase measure m Serum < 0.02 0.00-0. complet or 017 ng/mL 06 ed plasma 21:10 troponi n i.cardi ac measu CBC w auto diff (07-01-2017 21:10) Automat = 0.0 0-0.2 complet ed 017 K/MM3 ed blood 21:10 basophi l count (count/ vo Automat = 0.2 0.0-0.4 complet ed 017 K/mm3 ed blood 21:10 eosinop hil count Automat = 2.5 % 0.1-12. complet ed 017 0 ed blood 21:10 eosinop hils/10 0 leukocy t Blood = 4.9 1.3-8.0 complet granulo 017 K/mm3 ed cytes 21:10 automat ed count (numb Granulo = 69.2 37.0-80 complet cyte 017 % .0 ed percent 21:10 age Blood = 42.1 42.0-52 complet hematoc 017 % .0 ed rit 21:10 (volume fractio n) Blood = 14.5 14.1-18 complet hemoglo 017 g/dL .0 ed bin 21:10 measure ment (mass/v olum Absolut = 1.5 0.7-4.5 complet e 017 K/mm3 ed lymphoc 21:10 yte count Lymphoc = 20.8 10-50 complet yte 017 % ed count, 21:10 blood, automat ed Mean = 31.4 27-31.2 complet corpusc 017 pg ed ular 21:10 hemoglo bin (MCH) determ Automat = 34.6 31.8-35 complet ed 017 g/dl .4 ed erythro 21:10 cyte mean corpusc ular h Automat = 90.9 82.2-97 complet ed 017 fl .8 ed erythro 21:10 cyte mean corpusc ular v Absolut = 0.5 0.1-1.0 complet e 017 K/mm3 ed monocyt 21:10 e count Morris % = 6.9 % 1.7-9.3 complet 017 ed 21:10 Automat = 8.6 7.4-10. complet ed 017 fl 4 ed blood 21:10 platele t mean volume sonam Blood = 122 142-424 complet platele 017 K/mm3 ed t count 21:10 Red = 4.63 4.6-6.2 complet blood 017 M/mm3 ed cell 21:10 count Automat = 13.3 11.5-17 complet ed 017 % .5 ed erythro 21:10 cyte distrib ution width Blood = 7.1 4.8-10. complet leukocy 017 K/MM3 8 ed constantino 21:10 count (number /volume ) Baso % = 0.6 % 0.1-2.0 complet 017 ed 21:10 Whole blood INR measurement (07-01-2017 21:10) Whole = 3.27 0.9-1.1 complet blood 017 ed INR 21:10 measure ment Prothro = 35.8 9.4-11. complet mbin 017 SECONDS 8 ed time 21:10 (PT) in platele t poor p Comprehensive metabolic panel (07-01-2017 21:10) Serum = 3.0 3.4-5.0 complet or 017 gm/dL ed plasma 21:10 albumin measure ment (mas Serum = 36 46-116 complet or 017 U/L ed plasma 21:10 alkalin e phospha tase sonam Serum = 0.4 0.2-1.0 complet or 017 mg/dL ed plasma 21:10 total bilirub in measure m Serum = 22 7-18 complet or 017 mg/dL ed plasma 21:10 urea nitroge n measure men Serum = 7.7 8.5-10. complet or 017 mg/dL 1 ed plasma 21:10 calcium measure ment (mas Serum = 103 98-107 complet or 017 mmoL/L ed plasma 21:10 chlorid e measure ment (mo Carbon = 28 21.0-32 complet dioxide 017 mmoL/L .0 ed 21:10 measure ment Serum = 2.4 0.70-1. complet or 017 mg/dL 30 ed plasma 21:10 creatin ine measure ment ( Estimat = 62 50-200 complet ion of 017 ML/MIN ed creatin 21:10 ine renal clearan ce Estimat = 28 >60 complet ed 017 ML/MIN ed glomeru 21:10 lar filtrat ion rate (GF Serum = 3.1 1.3-3.2 complet globuli 017 gm/dL ed n 21:10 measure ment (mass/v olume) Serum = 135 74-106 complet or 017 mg/dL ed plasma 21:10 glucose measure ment (mas Serum = 4.4 3.5-5.1 complet potassi 017 mmoL/L ed um 21:10 measure ment Serum = 139 136-145 complet sodium 017 mmoL/L ed measure 21:10 ment Serum = 13 15-37 complet or 017 U/L ed plasma 21:10 asparta te aminotr ansfera ALT = 23 12-78 complet (SGPT) 017 U/L ed ser/joe 21:10 s Protein = 6.1 6.4-8.2 complet total 017 gm/dL ed ser/joe 21:10 s Serum = 1.0 1.1-1.8 complet or 017 ed plasma 21:10 albumin /globul in mass ra Activated partial thromboplastin time (a (07-01-2017 21:10) Activat = 36.1 23.6-34 complet ed 017 SECONDS .0 ed partial 21:10 thrombo plastin time (a STREP SCREEN (RAPID) (10-12-2013 21:30) STREP NEGATIV complet SCREEN 014 E ed (RAPID) 21:30 BASIC METABOLIC PANEL (10-12-2013 19:45) Glucose 143 74-106 complet 014 mg/dL ed Bld-mCn 19:45 c BUN 15 7-18 complet Bld-mCn 014 mg/dL ed c 19:45 Creat 1.5 0.8-1.3 complet SerPl-m 014 mg/dL ed Cnc 19:45 Creat 105 50-200 complet Cl 014 ML/MIN ed predict 19:45 ed SerPl C-G-vRa te GFR/BSA 48 Greater complet .pred 014 ML/MIN than ed SerPl 19:45 60 Schwart z-vRate Sodium 141 136-145 complet SerPl-s 014 mmoL/L ed Cnc 19:45 Potassi 4.4 3.5-5.1 complet um 014 mmoL/L ed SerPl-s 19:45 Cnc Chlorid 106 98-107 complet e 014 mmoL/L ed SerPl-s 19:45 Cnc CO2 27 21.0-32 complet SerPl-s 014 mmoL/L .0 ed Cnc 19:45 Calcium 8.3 8.5-10. complet 014 mg/dL 1 ed SerPl-m 19:45 Cnc CBC with AUTO DIFF (10-12-2013 19:45) WBC # 10-12-2 7.1 4.8-10. complet Bld 014 K/MM3 8 ed Auto 19:45 RBC # 4.97 4.6-6.2 complet Bld 014 M/mm3 ed Auto 19:45 Hgb 15.2 14.1-18 complet Bld-mCn 014 g/dL .0 ed c 19:45 Hct Fr 43.5 % 42.0-52 complet Bld 014 .0 ed 19:45 MCV RBC 87.5 fl 82.2-97 complet 014 .8 ed 19:45 MCH RBC 30.7 pg 27-31.2 complet Qn 014 ed Auto 19:45 MEAN 35.0 31.8-35 complet CORPUSC 014 g/dl .4 ed ULAR 19:45 HGB CONC RDW RBC 10-12- 15.8 % 11.5-17 complet Auto 014 .5 ed 19:45 Platele 142 142-424 complet t Bld 014 K/mm3 ed Ql 19:45 Manual MEAN 8.6 fl 7.4-10. complet PLATELE 014 4 ed T 19:45 VOLUME Granulo 71.7 % 37.0-80 complet cytes 014 .0 ed Fr Bld 19:45 Auto LYMPH % 19.6 % 10-50 complet 014 ed 19:45 Monocyt 4.2 % 1.7-9.3 complet es Fr 014 ed Bld 19:45 Auto Eosinop 3.6 % 0.1-12. complet hil Fr 014 0 ed Bld 19:45 Auto Basophi 0.9 % 0.1-2.0 complet ls Fr 014 ed Bld 19:45 Auto Granulo 10-12-2 5.1 1.3-8.0 complet cytes # 014 K/mm3 ed Bld 19:45 Auto Lymphoc 10-12-2 1.4 0.7-4.5 complet ytes Fr 014 K/mm3 ed Bld 19:45 Auto Monocyt 10-12-2 0.3 0.1-1.0 complet es # 014 K/mm3 ed Bld 19:45 Auto Eosinop 10-12-2 0.3 0.0-0.4 complet hil # 014 K/mm3 ed Bld 19:45 Auto Basophi 10-12-2 0.1 0-0.2 complet ls # 014 K/MM3 ed Bld 19:45 Auto PROTIME/INR (01-31-2013 00:01) PROTHRO 01-31-2 14.2 9.8-11. complet MBIN 013 SECONDS 0 ed TIME 00:01 INR Bld 1.37 0.9-1.1 complet 013 UNK ed 00:01 D Dimer PPP (01-30-2013 23:58) D Dimer 176 0-400 complet PPP 013 ng/mL ed 23:58 URINALYSIS/COMPLETE (01-30-2013 23:23) URINE 01-30-2 YELLOW YELLOW complet COLOR 013 ed 23:23 URINE 01-30-2 CLEAR CLEAR complet APPEARA 013 ed NCE 23:23 URINE 01-30-2 NEGATIV NEG complet GLUCOSE 013 E ed - 23:23 DIPSTIC K URINE 01-30-2 NEGATIV NEG complet BILIRUB 013 E ed IN - 23:23 DIPSTIC K URINE 07-2 NEGATIV NEG complet KETONE 013 E mg/dL ed 23:23 URINE 07-2 1.020 1.005-1 complet SPECIFI 013 UNK .030 ed C 23:23 GRAVITY URINE 01-30-2 TRACE-L NEG complet BLOOD 013 YSED ed 23:23 URINE 01-30-2 8.0 UNK 5.0-8.5 complet PH 013 ed 23:23 URINE 01-30-2 2+ NEG complet PROTEIN 013 mg/dL ed - 23:23 DIPSTIC K URINE 01-30-2 1.0 NEG complet UROBILI 013 E.U./dL ed NOGEN - 23:23 DIPSTIC K URINE 05-07-2 NEGATIV NEG complet NITRATE 013 E ed - 23:23 DIPSTIC K URINE 05-07-2 NEGATIV NEG complet LEUK 013 E ed ESTERAS 23:23 E URINE 05-07-2 3-5 0 complet RBC 013 rbc/hpf ed 23:23 URINE 05-07-2 3-5 O complet WBC 013 wbc/hpf ed 23:23 URINE 05-07-2 OCC OCC complet SQUAMOU 013 #/hpf ed S CELLS 23:23 URINE 05-07-2 OCC O complet BACTERI 013 ed A 23:23 CBC with AUTO DIFF (01-30-2013 23:02) WBC # 05-07-2 5.4 4.8-10. complet Bld 013 K/MM3 8 ed Auto 23:02 RBC # 05-07-2 4.91 4.6-6.2 complet Bld 013 M/mm3 ed Auto 23:02 Hgb 05-07-2 15.2 14.1-18 complet Bld-mCn 013 g/dL .0 ed c 23:02 Hct Fr 01-30-2 43.9 % 42.0-52 complet Bld 013 .0 ed 23:02 MCV RBC 05-07-2 89.3 fl 82.2-97 complet 013 .8 ed 23:02 MCH RBC 05-07-2 30.9 pg 27-31.2 complet Qn 013 ed Auto 23:02 MEAN -07-2 34.6 31.8-35 complet CORPUSC 013 g/dl .4 ed ULAR 23:02 HGB CONC RDW RBC -07-2 15.1 % 11.5-17 complet Auto 013 .5 ed 23:02 Platele 05-07-2 136 142-424 complet t Bld 013 K/mm3 ed Ql 23:02 Manual MEAN -07-2 8.9 fl 7.4-10. complet PLATELE 013 4 ed T 23:02 VOLUME Granulo -07-2 67.6 % 37.0-80 complet cytes 013 .0 ed Fr Bld 23:02 Auto LYMPH % 05-07-2 22.6 % 10-50 complet 013 ed 23:02 Monocyt 05-07-2 6.5 % 1.7-9.3 complet es Fr 013 ed Bld 23:02 Auto Eosinop 05-07-2 2.7 % 0.1-12. complet hil Fr 013 0 ed Bld 23:02 Auto Basophi 05-07-2 0.6 % 0.1-2.0 complet ls Fr 013 ed Bld 23:02 Auto Granulo 05-07-2 3.6 1.3-8.0 complet cytes # 013 K/mm3 ed Bld 23:02 Auto Lymphoc 05-07-2 1.2 0.7-4.5 complet ytes Fr 013 K/mm3 ed Bld 23:02 Auto Monocyt 05-07-2 0.4 0.1-1.0 complet es # 013 K/mm3 ed Bld 23:02 Auto Eosinop 05-07-2 0.2 0.0-0.4 complet hil # 013 K/mm3 ed Bld 23:02 Auto Basophi 05-07-2 0.0 0-0.2 complet ls # 013 K/MM3 ed Bld 23:02 Auto COMPREHENSIVE METABOLIC PANEL (01-30-2013 22:57) Glucose 108 74-106 complet 013 mg/dL ed Bld-mCn 22:57 c BUN 01-30- 19 7-18 complet Bld-mCn 013 mg/dL ed c 22:57 Creat 01-30-2 1.4 0.8-1.3 complet SerPl-m 013 mg/dL ed Cnc 22:57 ESTIMAT 01-30- 113 50-200 complet ED 013 ML/MIN ed CREATIN 22:57 INE CLEARAN CE GFR 52 Greater complet (ESTIMA 013 ML/MIN than ed CORTNEY) 22:57 60 Sodium 01-30- 140 136-145 complet SerPl-s 013 mmoL/L ed Cnc 22:57 Potassi 01-30- 4.3 3.5-5.1 complet um 013 mmoL/L ed SerPl-s 22:57 Cnc Chlorid 105 98-107 complet e 013 mmoL/L ed SerPl-s 22:57 Cnc CO2 32 21.0-32 complet SerPl-s 013 mmoL/L .0 ed Cnc 22:57 Calcium 8.2 8.5-10. complet 013 mg/dL 1 ed SerPl-m 22:57 Cnc Prot 7.0 6.4-8.2 complet SerPl-m 013 gm/dL ed Cnc 22:57 Albumin 01-30- 3.5 3.4-5.0 complet 013 gm/dL ed SerPl-m 22:57 Cnc Globuli 3.5 1.3-3.2 complet n 013 gm/dL ed Ser-mCn 22:57 c Albumin 1.0 UNK 1.1-1.8 complet /Glob 013 ed SerPl-m 22:57 Rto Bilirub 0.6 0.2-1.0 complet 013 mg/dL ed SerPl-m 22:57 Cnc AST 23 U/L 15-37 complet SerPl-c 013 ed Cnc 22:57 ALT 35 U/L 30-65 complet SerPl-c 013 ed Cnc 22:57 ALP 49 U/L 50-136 complet SerPl-c 013 ed Cnc 22:57 BNP Bld-mCnc (01-30-2013 22:57) BNP 12 0-100 complet Bld-mCn 013 pg/mL ed c 22:57 COMPREHENSIVE METABOLIC PANEL (01-12-2013 23:06) Glucose 114 74-106 complet 013 mg/dL ed Bld-mCn 23:06 c BUN 11 7-18 complet Bld-mCn 013 mg/dL ed c 23:06 Creat 1.3 0.8-1.3 complet SerPl-m 013 mg/dL ed Cnc 23:06 ESTIMAT 122 50-200 complet ED 013 ML/MIN ed CREATIN 23:06 INE CLEARAN CE GFR 57 Greater complet (ESTIMA 013 ML/MIN than ed CORTNEY) 23:06 60 Sodium 140 136-145 complet SerPl-s 013 mmoL/L ed Cnc 23:06 Potassi 4.2 3.5-5.1 complet um 013 mmoL/L ed SerPl-s 23:06 Cnc Chlorid 104 98-107 complet e 013 mmoL/L ed SerPl-s 23:06 Cnc CO2 30 21.0-32 complet SerPl-s 013 mmoL/L .0 ed Cnc 23:06 Calcium 8.2 8.5-10. complet 013 mg/dL 1 ed SerPl-m 23:06 Cnc Prot 6.5 6.4-8.2 complet SerPl-m 013 gm/dL ed Cnc 23:06 Albumin 3.7 3.4-5.0 complet 013 gm/dL ed SerPl-m 23:06 Cnc Globuli 2.8 1.3-3.2 complet n 013 gm/dL ed Ser-mCn 23:06 c Albumin 1.3 UNK 1.1-1.8 complet /Glob 013 ed SerPl-m 23:06 Rto Bilirub 0.8 0.2-1.0 complet 013 mg/dL ed SerPl-m 23:06 Cnc AST 15 U/L 15-37 complet SerPl-c 013 ed Cnc 23:06 ALT 33 U/L 30-65 complet SerPl-c 013 ed Cnc 23:06 ALP 55 U/L 50-136 complet SerPl-c 013 ed Cnc 23:06 PROTIME/INR (01-12-2013 23:06) PROTHRO 01-12-2 19.4 9.8-11. complet MBIN 013 SECONDS 0 ed TIME 23:06 INR Bld 1.88 0.9-1.1 complet 013 UNK ed 23:06 CBC with AUTO DIFF (01-12-2013 23:06) WBC # 01-12-2 7.9 4.8-10. complet Bld 013 K/MM3 8 ed Auto 23:06 RBC # 01-12-2 5.34 4.6-6.2 complet Bld 013 M/mm3 ed Auto 23:06 Hgb 16.1 14.1-18 complet Bld-mCn 013 g/dL .0 ed c 23:06 Hct Fr 48.9 % 42.0-52 complet Bld 013 .0 ed 23:06 MCV RBC 91.5 fl 82.2-97 complet 013 .8 ed 23:06 MCH RBC 01-12-2 30.2 pg 27-31.2 complet Qn 013 ed Auto 23:06 MEAN 19-2 33.1 31.8-35 complet CORPUSC 013 g/dl .4 ed ULAR 23:06 HGB CONC RDW RBC 01-12-2 15.5 % 11.5-17 complet Auto 013 .5 ed 23:06 Platele 01-12-2 131 142-424 complet t Bld 013 K/mm3 ed Ql 23:06 Manual MEAN 2 9.1 fl 7.4-10. complet PLATELE 013 4 ed T 23:06 VOLUME Granulo 19-2 75.2 % 37.0-80 complet cytes 013 .0 ed Fr Bld 23:06 Auto LYMPH % 01-12-2 17.1 % 10-50 complet 013 ed 23:06 Monocyt 01-12-2 4.9 % 1.7-9.3 complet es Fr 013 ed Bld 23:06 Auto Eosinop -19-2 2.4 % 0.1-12. complet hil Fr 013 0 ed Bld 23:06 Auto Basophi -19-2 0.5 % 0.1-2.0 complet ls Fr 013 ed Bld 23:06 Auto Granulo -19-2 6.0 1.3-8.0 complet cytes # 013 K/mm3 ed Bld 23:06 Auto Lymphoc -19-2 1.4 0.7-4.5 complet ytes Fr 013 K/mm3 ed Bld 23:06 Auto Monocyt -19-2 0.4 0.1-1.0 complet es # 013 K/mm3 ed Bld 23:06 Auto Eosinop -19-2 0.2 0.0-0.4 complet hil # 013 K/mm3 ed Bld 23:06 Auto Basophi 04-19-2 0.0 0-0.2 complet ls # 013 K/MM3 ed Bld 23:06 Auto URINALYSIS/COMPLETE (01-12-2013 21:35) URINE 01-12-2 YELLOW YELLOW complet COLOR 013 ed 21:35 URINE 01-12-2 CLEAR CLEAR complet APPEARA 013 ed NCE 21:35 URINE 01-12-2 NEGATIV NEG complet GLUCOSE 013 E ed - 21:35 DIPSTIC K URINE 19-2 NEGATIV NEG complet BILIRUB 013 E ed IN - 21:35 DIPSTIC K URINE 19-2 NEGATIV NEG complet KETONE 013 E mg/dL ed 21:35 URINE -19-2 1.025 1.005-1 complet SPECIFI 013 UNK .030 ed C 21:35 GRAVITY URINE 01-12-2 2+ NEG complet BLOOD 013 ed 21:35 URINE 01-12-2 6.0 UNK 5.0-8.5 complet PH 013 ed 21:35 URINE 19-2 2+ NEG complet PROTEIN 013 mg/dL ed - 21:35 DIPSTIC K URINE 19-2 0.2 NEG complet UROBILI 013 E.U./dL ed NOGEN - 21:35 DIPSTIC K URINE 19-2 NEGATIV NEG complet NITRATE 013 E ed - 21:35 DIPSTIC K URINE 19-2 NEGATIV NEG complet LEUK 013 E ed ESTERAS 21:35 E URINE 01-12-2 10-20 0 complet RBC 013 rbc/hpf ed 21:35 URINE 01-12-2 OCC OCC complet SQUAMOU 013 #/hpf ed S CELLS 21:35 URINE 01-12-2 TRACE NONE complet MUCUS 013 ed 21:35 COMPREHENSIVE METABOLIC PANEL (12-06-2012 19:25) Glucose 155 74-106 complet 013 mg/dL ed Bld-mCn 19:25 c BUN 11 7-18 complet Bld-mCn 013 mg/dL ed c 19:25 Creat 1.2 0.8-1.3 complet SerPl-m 013 mg/dL ed Cnc 19:25 ESTIMAT 134 50-200 complet ED 013 ML/MIN ed CREATIN 19:25 INE CLEARAN CE GFR 62 Greater complet (ESTIMA 013 ML/MIN than ed CORTNEY) 19:25 60 Sodium 139 136-145 complet SerPl-s 013 mmoL/L ed Cnc 19:25 Potassi 4.4 3.5-5.1 complet um 013 mmoL/L ed SerPl-s 19:25 Cnc Chlorid 104 98-107 complet e 013 mmoL/L ed SerPl-s 19:25 Cnc CO2 12-06-2 29 21.0-32 complet SerPl-s 013 mmoL/L .0 ed Cnc 19:25 Calcium -13-2 8.2 8.5-10. complet 013 mg/dL 1 ed SerPl-m 19:25 Cnc Prot 13-2 6.5 6.4-8.2 complet SerPl-m 013 gm/dL ed Cnc 19:25 Albumin 12-06-2 3.4 3.4-5.0 complet 013 gm/dL ed SerPl-m 19:25 Cnc Globuli 12-06-2 3.1 1.3-3.2 complet n 013 gm/dL ed Ser-mCn 19:25 c Albumin 12-06-2 1.1 UNK 1.1-1.8 complet /Glob 013 ed SerPl-m 19:25 Rto Bilirub 12-06-2 0.4 0.2-1.0 complet 013 mg/dL ed SerPl-m 19:25 Cnc AST 12-06-2 19 U/L 15-37 complet SerPl-c 013 ed Cnc 19:25 ALT 12-06-2 35 U/L 30-65 complet SerPl-c 013 ed Cnc 19:25 ALP 12-06-2 50 U/L 50-136 complet SerPl-c 013 ed Cnc 19:25 PROTIME/INR (12-06-2012 19:25) PROTHRO 12-06-2 27.4 9.8-11. complet MBIN 013 SECONDS 0 ed TIME 19:25 INR Bld 12-06-2 2.66 0.9-1.1 complet 013 UNK ed 19:25 CBC with AUTO DIFF (12-06-2012 19:25) WBC # -13-2 5.5 4.8-10. complet Bld 013 K/MM3 8 ed Auto 19:25 RBC # 12-06-2 5.00 4.6-6.2 complet Bld 013 M/mm3 ed Auto 19:25 Hgb 12-06-2 15.2 14.1-18 complet Bld-mCn 013 g/dL .0 ed c 19:25 Hct Fr 44.0 % 42.0-52 complet Bld 013 .0 ed 19:25 MCV RBC 12-06-2 88.0 fl 82.2-97 complet 013 .8 ed 19:25 MCH RBC --2 30.4 pg 27-31.2 complet Qn 013 ed Auto 19:25 MEAN 12-06-2 34.5 31.8-35 complet CORPUSC 013 g/dl .4 ed ULAR 19:25 HGB CONC RDW RBC --2 15.9 % 11.5-17 complet Auto 013 .5 ed 19:25 Platele --2 118 142-424 complet t Bld 013 K/mm3 ed Ql 19:25 Manual MEAN 12-06-2 8.6 fl 7.4-10. complet PLATELE 013 4 ed T 19:25 VOLUME Granulo -13-2 66.7 % 37.0-80 complet cytes 013 .0 ed Fr Bld 19:25 Auto LYMPH % 03-13-2 22.4 % 10-50 complet 013 ed 19:25 Monocyt 03-13-2 5.5 % 1.7-9.3 complet es Fr 013 ed Bld 19:25 Auto Eosinop 03-13-2 4.4 % 0.1-12. complet hil Fr 013 0 ed Bld 19:25 Auto Basophi 03-13-2 1.0 % 0.1-2.0 complet ls Fr 013 ed Bld 19:25 Auto Granulo 03-13-2 3.6 1.3-8.0 complet cytes # 013 K/mm3 ed Bld 19:25 Auto Lymphoc 03-13-2 1.2 0.7-4.5 complet ytes Fr 013 K/mm3 ed Bld 19:25 Auto Monocyt 03-13-2 0.3 0.1-1.0 complet es # 013 K/mm3 ed Bld 19:25 Auto Eosinop 03-13-2 0.2 0.0-0.4 complet hil # 013 K/mm3 ed Bld 19:25 Auto Basophi 03-13-2 0.1 0-0.2 complet ls # 013 K/MM3 ed Bld 19:25 Auto ESR Bld Qn 15M (12-06-2012 19:25) ESR Bld 13-2 5 mm/hr 0-20 complet Qn 15M 013 ed 19:25 Procedures Procedure DOS Code Location Performer Comment O2 [facility] 1 E1390 [facility] DEL PORT 7 85%/>02 [facility] AT [facility] FLW RATE PRTBLE E0431 [facility] GASEOUS 7 O2 SYS RENT; FLWMTR HUMIDFR&M ASK PRTBLE E0431 [facility] GASEOUS 7 O2 SYS RENT; FLWMTR HUMIDFR&M ASK O2 [facility] 1 E1390 [facility] DEL PORT 7 85%/>02 [place] [address] [place] TRUE ABDOMEN & 7 MEDICAL PELVIS SERV W/O FOUNDATIO CONTRAST N MATERIAL PROTHROMB 88563 [facility] IN TIME 7 [facility] [address] YNES QUICK PRSMV 7 [facility] CHEMISTRY ANALYZERS O2 CONC 1 E1390 [facility] DEL PORT 7 85%/>02 [facility] FLW RATE PRTBLE E0431 [facility] GASEOUS 7 O2 SYS RENT; FLWMTR H[place]IDFR&[place] [address] [facility] [place] SCALF ABDOMEN & 7 RADIOLOGY PELVIS W/O CONTRAST MATERIAL URNLS DIP 46489 STEPHANIE SILVA [address] [place] [address] STICK/TAB CLINIC LET RGNT PSC AUTO W/O MICROSCOP Y CULTURE 55879 [facility] BACTERIAL 7 CLINIC CLINIC LABORATO LABORATO QUANTTATI VE COLONY COUNT URINE O2 CONC 1 E1390 [facility] DEL PORT 7 85%/>02 [facility] FLW RATE PRTBLE E0431 [facility] GASEOUS 7 O2 SYS RENT; FLWMTR HUMIDFR&M ASK DRUG TST G0483 [facility] LAB [facility] DEFINITV [address] ID HOLDINGS HOLDINGS METH P DAY 22/MORE DR CL DRUG TEST 93953 [facility] PRSMV 7 LINDA LINDA INSTRMNT [facility] HOLDINGS CHEMISTRY ANALYZERS PROTHROMB 80277 [facility] IN TIME 7 LINDA LINDA [facility]INGS COLLECTIO 17127 YNES Ma VENOUS 7 PHYSICIAN BLOOD PRACTICE VENIPUNCT L URE PROTHROMB 37611 [facility] IN TIME 7 LINDA LINDA [facility] HOLDINGS INITIAL 00409 [facility] 7 MEDICINE CARE/DAY [place] [address] [place] [address] [facility] [place] SCALF HEAD/BRAI 7 RADIOLOGY N W/O CONTRAST MATERIAL RADIOLOGI 95740 [facility] SWINEY C 7 JEROD EXAMINATI EMERGENCY ON CHEST PHYS SINGLE VIEW FRONTAL ECG 36112 [facility] SWINEY ROUTINE 7 JEROD ECG EMERGENCY W/LEAST PHYS 12 LDS I&R ONLY RADEX 59528 [place] [facility] SPINE 7 MEDICAL CERVICAL IMAGING 2 OR 3 ASS VIEWS RADEX 76713 [place] SHOULDER 7 MEDICAL COMPLETE IMAGING MINIMUM 2 ASS VIEWS ECG 74239 [facility] [address] ROUTINE [facility] W/LEAST P 12 LDS I&R ONLY PROTHROMB 20031 LAB [facility] LAB [facility] IN TIME 7 [facility] HOLDING DUP-SCAN 64395 [place] XTR VEINS 7 MEDICAL IMAGING UNILATERA ASS L/LIMITED STUDY PROTHROMB 59306 LAB [facility] LAB [facility] IN TIME 7 [place] [address] LAB [facility] THYROXINE 7 [facility] TOTAL HOLDINGS HOLDINGS COLLECTIO 10488 YNES TATE N VENOUS 7 PHYSICIAN BLOOD [place] [address] LAB [facility] THYROID 7 [facility] STIMULATI HOLDINGS HOLDINGS NG HORMONE TSH URNLS DIP 50279 STEPHANIE SLIVA 7 [place] STICK/TAB CLINIC LET RGNT PSC AUTO W/O MICROSCOP Y URNLS DIP [address] 7 [facility] STICK/TAB INC INC LET REAGENT AUTO MICROSCOP Y BLOOD [address] COUNT 7 [facility] COMPLETE INC INC AUTO&AUTO DIFRNTL WBC COMPREHEN [address] SIVE 7 [facility] [place] [address] LIPASE 7 [place] [address] ABDOMEN & 7 [facility] PELVIS INC INC W/O CONTRAST MATERIAL PROTHROMB [address] IN TIME 7 [facility] INC INC CYSTOURET 17478 [facility] HROSCOPY 6 [facility] PSC PSC THERAPEUT 96004 [place] PX 1/> 6 [facility] EACH 15 MIN EXERCISES E-STIM G0283 [place] 1/> AREAS 6 [facility] WND CARE PART TX PLAN E-STIM G0283 [place] 1/> AREAS 6 [facility] WND CARE PART TX PLAN THERAPEUT 00039 [place] P[place] 1/> 6 [facility] EACH 15 MIN EXERCISES THERAPEUT 57177 [place] P[place] 1/> 6 [facility] EACH 15 MIN EXERCISES E-STIM G0283 [place] 1/> AREAS [address] [facility] HOSPITAL WND CARE PART TX PLAN E-STIM G0283 [place] 1/> AREAS [address] [facility] H[facility] WND CARE PART TX PLAN PHYSICAL 41737 [place] THERAPY 6 [facility] [address] THYROID 6 [facility] STIMULATI INC INC NG HORMONE TSH THYROID [address] HORM 6 [facility] [place] [place] [facility] UPTK/THYR INC INC OID HORMONE BINDING RATIO BLOOD [address] COUNT 6 [facility] COMPLETE INC INC AUTO&AUTO DIFRNTL WBC COLLECTIO [address] N VENOUS 6 [facility] [place] [place] [facility] [place]LO[place] [address] THYROXINE 6 [facility] TOTAL INC INC COMPREHEN [address] SIVE 6 [facility] METABOLIC INC INC PANEL DRAINAGE [id number] [facility] OF NECK 6 [facility] SKIN INC INC EXTERNAL BLOOD 68213 [facility] COUNT 6 N N COMPLETE COMMUNTIY COMMUNTIY AUTO&AUTO HOSPITA HOSPITA DIFRNTL WBC THROMBOPL 71249 [facility] ASTIN 6 N N TIME COMMUNTIY COMMUNTIY PARTIAL HOSPITA HOSPITA PLASMA/WH OLE BLOOD US SOFT 55173 [facility] TISSUE 6 N N HEAD & COMMUNTIY COMMUNTIY NECK REAL HOSPITA HOSPITA TIME IMGE DOCM COLLECTIO 10683 [facility] N VENOUS 6 N N BLOOD COMMUNTIY COMMUNTIY VENIPUNCT HOSPITA HOSPITA URE PROTHROMB 02444 [facility] IN TIME 6 [place] [address] [facility] MAXILLOFA 6 N N CIAL W/O COMMUNTIY COMMUNTIY CONTRAST HOSPITA HOSPITA MATERIAL INJECTION [id number] [place] 0.1 MG CV STRS 62757 [facility] TST [address] [place] [address] XERS&/OR RX CONT ECG TRCG ONLY TECHNETIU A9502 [facility] TC-99M [address] [place] [address] TETROFOSM IN DX PER STUDY DOSE MYOCARDIA 96035 [facility] SPECT [address] [place] [address] MULTIPLE STUDIES MRI ORBIT 70455 NEURODIAG [place] FACE & 6 NOSTICS NECK W/O INC & W/CONTRAS T MATRL US SOFT 96193 NEURODIAG [place] TISSUE 6 NOSTICS HEAD & [place] [address] [facility] & 6 REGIONAL LD IV ALL PELVIS IMAGING W/O L CONTRST 1/> B[place] [address] [facility] TRACT 6 [facility] UPPER [facility] W/WO DELAYED IMAGES W/KUB RADIOLOGI 93419 [facility] C EXAM [address] [facility] CHEST 2 [facility] VIEWS FRONTAL&L ATERAL PULMONARY 72553 [facility] 6 [facility] VENTILATI [facility] ON & PERFUSION IMAGING TECHNETIU A9540 [facility] M TC-99M 6 [facility] MAA DX [facility] STDY DOSE UP TO 10 MCI XENON A9558 [facility] XE-133 6 [facility] GAS [facility] DIAGNOSTI C PER 10 MILLICURI ES NEBULIZER E0570 [facility] WITH 6 COMPRESSO R ECG 68116 PEPE ENVAREZ NEVAREZ PEPE ROUTINE 5 ECG CONSULTIN W/LEAST G SRV 12 LDS W/I&R ECHO 05033 PEPE NEVAREZ NEVAREZ PEPE TTHRC R-T 5 2D CONSULTIN W/WOM-MOD G SRV E COMPL SPEC&COLR D BLOOD [address] COUNT 5 [facility] COMPLETE INC INC AUTO&AUTO DIFRNTL WBC COMPREHEN [address] SIVE 5 [facility] METABOLIC INC INC PANEL PROTHROMB [address] IN TIME 5 [facility] INC INC ECG [address] ROUTINE 5 [facility] ECG INC INC W/LEAST 12 LDS TRCG ONLY W/O I&R CREATINE [address] KINASE 5 [facility] TOTAL INC INC RADIOLOGI [address] C EXAM 5 [facility] CHEST 2 INC INC VIEWS FRONTAL&L ATERAL RADIOLOGI [address] C 5 [facility] EXAMINATI INC INC [place] [address] TROPONIN 5 [facility] QUANTITAT INC INC JOANIE NATRIURET [address] IC 5 [facility] PEPTIDE INC INC CREATINE [address] KINASE MB 5 [facility] FRACTION INC INC ONLY HOSPITAL [address] [facility] DIS[facility]GE 5 JEROD PATRICK DAY PHYSICIAN MANAGEMEN SERVI T > 30 MIN SBSQ 82576 [facility] 5 JEROD CELINA IGN CARE/DAY PHYSICIAN 25 SERVI MINUTES SBSQ 90603 [facility] 5 JEROD CELINA IGN CARE/DAY PHYSICIAN 25 SERVI MINUTES ECG 23658 [facility] 5 JEROD A GOP ECG PHYSICIAN W/LEAST SERVI 12 LDS I&R ONLY INITIAL 55609 [facility] 5 JEROD A GOP CARE/DAY PHYSICIAN 70 SERVI MINUTES CYSTOURET 16475 STEPHANIE SILVA HROSCOPY 5 [place] [facility] PSC PHYSICAL [address] THERAPY 5 [facility] EVALUATIO INC INC N APPL [address] MODALITY 5 [facility] 1/> AREAS INC INC ELEC STIMJ UNATTENDE D APPLICATI [address] ON 5 [facility] MODALITY INC INC 1/> AREAS HOT/COLD PACKS APPL [address] MODALITY 5 [facility] 1/> AREAS INC INC ULTRASOUN D EA 15 MIN URNLS DIP 72451 STEPHANIE RICARDO 5 [place] [facility] STICK/TAB CLINIC LET RGNT PSC AUTO W/O MICROSCOP Y APPL [address] MODALITY 5 [facility] 1/> AREAS INC INC ULTRASOUN D EA 15 MIN [address]ATI [address] ON 5 [facility] MODALITY INC INC 1/> AREAS HOT/COLD PACKS APPL [address] MODALITY 5 [facility] 1/> AREAS INC INC ELEC STIMJ UNATTENDE D THERAPEUT [address] IC PX 1/> 5 [facility] AREAS INC INC EACH 15 MIN EXERCISES THERAPEUT [address] IC PX 1/> 5 [facility] AREAS INC INC EACH 15 MIN EXERCISES APPL [address] MODALITY 5 [facility] 1/> AREAS INC INC ELEC STIMJ UNATTENDE D APPLICATI [address] ON 5 [facility] MODALITY INC INC 1/> AREAS HOT/COLD PACKS APPL [address] MODALITY 5 [facility] 1/> AREAS INC INC ULTRASOUN D EA 15 MIN AP[address]ICATI [address] ON 5 [facility] MODALITY INC INC 1/> AREAS HOT/COLD PACKS APPL [address] MODALITY 5 [facility] 1/> AREAS INC INC ELEC STIMJ UNATTENDE D LUMB L0627 [facility] 5 TECHNOLOG TECHNOLOG SAGIT IES INC IES INC CNTRL RIGID A&P PANEL PREFAB THERAPEUT [address] IC PX 1/> 5 [facility] AREAS INC INC EACH 15 MIN EXERCISES ORTHOTIC [address] MGMT&IKE 5 [facility] [place] UXTR INC INC LXTR&/TRN K EA [address] IC PX 1/> 5 [facility] AREAS INC INC EACH 15 MIN EXERCISES APPL [address] MODALITY 5 [facility] 1/> AREAS INC INC ELEC STIMJ UNATTENDE D APPL [address] MODALITY 5 [facility] 1/> AREAS INC INC ULTRASOUN D EA 15 MIN APPL [address] MODALITY 5 [facility] 1/> AREAS INC INC ULTRASOUN D EA 15 MIN APPL [address] MODALITY 5 [facility] 1/> AREAS INC INC ELEC STIMJ UNATTENDE D THERAPEUT [address] IC PX 1/> 5 [facility] AREAS INC INC EACH 15 MIN EXERCISES THERAPEUT [address] IC PX 1/> 5 [facility] AREAS INC INC EACH 15 MIN EXERCISES APPL [address] MODALITY 5 [facility] 1/> AREAS INC INC ELEC STIMJ UNATTENDE D APPL [address] MODALITY 5 [facility] 1/> AREAS INC INC ULTRASOUN D EA 15 MIN [address]ATI [address] ON 5 [facility] MODALITY INC INC 1/> AREAS HOT/COLD PACKS APPLICATI [address] ON 5 [facility] MODALITY INC INC 1/> AREAS HOT/COLD PACKS APPL [address] MODALITY 5 [facility] 1/> AREAS INC INC ULTRASOUN D EA 15 MIN APPL [address] MODALITY 5 [facility] 1/> AREAS INC INC ELEC STIMJ UNATTENDE D THERAPEUT [address] IC PX 1/> 5 [facility] AREAS INC INC EACH 15 MIN EXERCISES THERAPEUT [address] IC PX 1/> 5 [facility] AREAS INC INC EACH 15 MIN EXERCISES APPL [address] MODALITY 5 [facility] 1/> AREAS INC INC ELEC STIMJ UNATTENDE D APPL [address] MODALITY 5 [facility] 1/> AREAS INC INC ULTRASOUN D EA 15 MIN APPL [address] MODALITY 5 [facility] 1/> AREAS INC INC ULTRASOUN D EA 15 MIN APPL [address] MODALITY 5 [facility] 1/> AREAS INC INC ELEC STIMJ UNATTENDE D THERAPEUT [address] IC PX 1/> 5 [facility] AREAS INC INC EACH 15 MIN EXERCISES THERAPEUT [address] IC PX 1/> 5 [facility] AREAS INC INC EACH 15 MIN EXERCISES APPL [address] MODALITY 5 [facility] 1/> AREAS INC INC ELEC STIMJ UNATTENDE D APPL [address] MODALITY 5 [facility] 1/> AREAS INC INC ULTRASOUN D EA 15 MIN APPL [address] MODALITY 5 [facility] 1/> AREAS INC INC ULTRASOUN D EA 15 MIN APPLICATI [address] ON 5 [facility] MODALITY INC INC 1/> AREAS HOT/COLD PACKS APPL [address] MODALITY 5 [facility] 1/> AREAS INC INC ELEC STIMJ UNATTENDE D THERAPEUT [address] IC PX 1/> 5 [facility] AREAS INC INC EACH 15 MIN EXERCISES THERAPEUT [address] IC PX 1/> 5 [facility] AREAS INC INC EACH 15 MIN EXERCISES APPL [address] MODALITY 5 [facility] 1/> AREAS INC INC ELEC STIMJ UNATTENDE D APPL [address] MODALITY 5 [facility] 1/> AREAS INC INC ULTRASOUN D EA 15 MIN APPL [address] MODALITY 5 [facility] 1/> AREAS INC INC ULTRASOUN D EA 15 MIN APPL [address] MODALITY 5 [facility] 1/> AREAS INC INC ELEC STIMJ UNATTENDE D THERAPEUT [address] IC PX 1/> 5 [facility] AREAS INC INC EACH 15 MIN EXERCISES MRI 79074 NEURODIAG [place] SPINAL 5 NOSTICS [place] CANAL INC CERVICAL W/O CONTRAST MATRL APPL [address] MODALITY 5 [facility] 1/> AREAS INC INC ULTRASOUN D EA 15 MIN APPL [address] MODALITY 5 [facility] 1/> AREAS INC INC ELEC STIMJ UNATTENDE D THERAPEUT [address] IC PX 1/> 5 [facility] AREAS INC INC EACH 15 MIN EXERCISES THERAPEUT [address] IC PX 1/> 5 [facility] AREAS INC INC EACH 15 MIN EXERCISES APPL [address] MODALITY 5 [facility] 1/> AREAS INC INC ELEC STIMJ UNATTENDE D APPL [address] MODALITY 5 [facility] 1/> AREAS INC INC ULTRASOUN D EA 15 MIN [address]ICATI [address] ON 5 [facility] MODALITY INC INC 1/> AREAS HOT/COLD PACKS APPL [address] MODALITY 5 [facility] 1/> AREAS INC INC ULTRASOUN D EA 15 MIN THERAPEUT [address] IC PX 1/> 5 [facility] AREAS INC INC EACH 15 MIN EXERCISES MANUAL [address] THERAPY 5 [facility] TQS 1/> INC INC REGIONS EACH 15 MIN[address]ES MANUAL [address] THERAPY 5 [facility] TQS 1/> INC INC REGIONS EACH 15 MINUTES THERAPEUT 77665 ARIANA [facility]ANA IC PX 1/> 5 [facility] AREAS INC INC EACH 15 MIN EXERCISES APPL [address] MODALITY 5 [facility] 1/> AREAS INC INC ULTRASOUN D EA 15 MIN APPLICATI [address] ON 5 [facility] MODALITY INC INC 1/> AREAS HOT/COLD PACKS APPL [address] MODALITY 5 [facility] 1/> AREAS INC INC ELEC STIMJ UNATTENDE D APPL [address] MODALITY 5 [facility] 1/> AREAS INC INC ELEC STIMJ UNATTENDE D APPLICATI [address] ON 5 [facility] MODALITY INC INC 1/> AREAS HOT/COLD PACKS APPL [address] MODALITY 5 [facility] 1/> AREAS INC INC ULTRASOUN D EA 15 MIN [address]UT [address] IC PX 1/> 5 [facility] AREAS INC INC EACH 15 MIN EXERCISES THERAPEUT [address] IC PX 1/> 5 [facility] AREAS INC INC EACH 15 MIN EXERCISES PHYSICAL [address] THERAPY 5 [facility] EVALUATIO INC INC N APPL [address] MODALITY 5 [facility] 1/> AREAS INC INC ELEC STIMJ UNATTENDE D CYSTOURET 89050 STEPHANIE [employer] [facility] [employer] HROSCOPY 5 [facility] [address] STEPHANIE SILVA PROSTATE 5 [facility] SPECIFIC CLIN[facility] ANTIGEN PSC TOTAL COLLECTIO 15443 STEPHANIE SILVA N VENOUS 5 [place] [facility] VENIPUNCT PSC URE CUL BACT 04318 [facility] XCPT 5 CLINIC CLINIC URINE LABORATO LABORATO BLOOD/STO OL AEROBIC ISOL URNLS DIP 32727 STEPHANIE SILVA 5 [place] [facility] STICK/TAB CLINIC LET RGNT PSC AUTO W/O MICROSCOP Y CYTP 08210 STEPHANIE ERNST FRANDY SLCTV 5 [place] [facility] ENHANCEME PSC NT INTERPJ XCPT C/V SMR PRIM 66940 [facility] SRC 5 CLINIC CLINIC GRAM/GIEM LABORATO LABORATO SA STAIN BCT FUNGI/LEODAN L COLLECTIO 68092 COMBINED COMBINED N VENOUS 2 PHYSICIAN PHYSICIAN BLOOD S LA S LA VENIPUNCT URE PROTHROMB 42346 COMBINED COMBINED IN TIME 2 PHYSICIAN PHYSICIAN S LA S LA CONTINUOU E0601 ABDON COPPOLA S 2 HOME HOME POSITIVE MEDICAL MEDICAL AIRWAY EQUIPME EQUIPME PRESSURE DEVICE NONCOVERE A9270 [facility] D ITEM OR 2 [facility] URNLS DIP 65649 [facility]AL 2 [facility] STICK/TAB HOSP HOSP LET REAGENT AUTO MICROSCOP Y COMPREHEN 67433 [facility] SIVE 2 [facility] [place] [address] JIM KEITH JIM KEITH ABDOMEN & 2 PELVIS W/O CONTRAST MATERIAL PROTHROMB 31254 [facility] IN TIME 2 [facility]P COLLECTIO 50454 [facility] N VENOUS 2 [facility] HOSP VENIPUNCT URE BLOOD 85519 [facility] COUNT 2 [facility]TE [facility] HOSP AUTO&AUTO DIFRNTL WBC O2 CONC 1 E1390 ABD[facility] COPPOLA DEL PORT 2 HOME HOME 85%/>02 MEDICAL MEDICAL CONC AT EQUIPME EQUIPME PRSC FLW RATE PRTBLE E0431 [facility] COP[facility] GASEOUS 2 HOME HOME O2 SYS MEDICAL MEDICAL RENT; EQUIPME EQUIPME FLWMTR HUMIDFR&M ASK HEMOGLOBI 17506 WEST MUR WEST MUR N 2 GLYCOSYLA [place] A1C ADMN SET A7003 YOUR YOUR SM VOL 2 PHARMACY PHARMACY NONFILTR PNEUMAT NEBULIZR DISPBL URNLS DIP 93559 STEPHANIE RAMIREZ 2 [place] JR THO STICK/TAB CLINIC LET RGNT PSC AUTO W/O MICROSCOP Y CONTINUOU E0601 [facility] [place] S 2 HOME HOME POSITIVE MEDICAL MEDICAL AIRWAY EQUIPME EQUIPME PRESSURE DEVICE PRTBLE E0431 [facility] [place] GASEOUS 2 HOME HOME O2 SYS MEDICAL MEDICAL RENT; EQUIPME EQUIPME FLWMTR HUMIDFR&M ASK O2 CONC 1 E1390 ABDON COP[place] DEL PORT 2 HOME HOME 85%/>02 MEDICAL MEDICAL CONC AT EQUIPME EQUIPME PRSC FLW RATE COMPREHEN [address] SIVE 2 [facility] [place] [place] [facility] [place] [place] METABOLIC INC INC PANEL BLOOD [address] COUNT 2 [facility] [place] COMPLETE INC INC AUTO&[place]O [place] [address] CLOSTRIDI 2 [facility] [place] [place] UM INC INC DIFFICILE TOXIN THERAPEUT [address] IC 2 [facility] [place] [place] [place] [facility] INJECTION INC INC IV PUSH EACH NEW DRUG URNLS DIP [address] 2 [facility] [place] [place] [facility] STICK/TAB INC INC LET [place] [address] AMYLASE 2 [facility] [place] [place] [facility] [place] [place] [facility] INC INC [facility]JECTION J2405 [address] 2 [facility] [place] [place] [place] [facility] ONDANSETR INC INC ON HCL PER [address] RENDERING 2 [facility] [place] [place] [facility] [place] [place] INC INC W/INTERP& POSTPROC DIFF WORK STATION THER [address] PROPH/DX 2 [facility] [place] [place] [place] [place] [facility] NJX IV INC INC PUSH SINGLE/1S T SBST/[place] [address] ABDOMEN & 2 [facility] PELVIS INC INC W/[place] [address] LIPASE 2 [facility] [place] [place] [place] [place] [facility] INC INC PROTHROMB [address] IN TIME 2 [facility] [place] [place] [place] [place] INC INC CUL BACT [address] STOOL 2 MEM [facility] AEROBIC INC INC ISOL SALMONELL A&SHIGELL PROTHROMB 60830 COMBINED COMBINED IN TIME 2 PHYSICIAN PHYSICIAN S LA S LA POTASSIUM 21503 COMBINED COMBINED SERUM 2 PHYSICIAN PHYSICIAN PLASMA/WH S LA S LA OLE BLOOD COLLECTIO 99513 COMBINED COMBINED N VENOUS 2 PHYSICIAN PHYSICIAN BLOOD S LA S LA VENIPUNCT URE URNLS DIP 45167 [facility] 2 [place] [facility] STICK/TAB CLINIC LET RGNT PSC AUTO W/O MICROSCOP Y BASIC 54332 COMBINED COMBINED METABOLIC 2 PHYSICIAN PHYSICIAN [place] T[place] [address] INFUSION 2 [facility] THERAPY/P INC INC ROPHYLAXI S /DX 1ST TO [address] IC 2 [facility] [place] [place] [facility] INJECTION INC INC IV PUSH EACH NEW DRUG PROTHROMB 15310 COMBINED COMBINED IN TIME 2 PHYSICIAN PHYSICIAN S LA S LA COLLECTIO 09495 COMBINED COMBINED N VENOUS 2 PHYSICIAN PHYSICIAN BLOOD S LA S LA VENIPUNCT URE BLOOD 93372 COMBINED COMBINED COUNT 2 PHYSICIAN PHYSICIAN COMPLETE S LA S LA AUTO&AUTO DIFRNTL WBC COMPREHEN 72159 COMBINED COMBINED SIVE 2 PHYSICIAN PHYSICIAN METABOLIC S LA S LA PANEL NEG PRESS E2402 [facility] WOUND 2 THERAPEUT THERAPEUT THERAPY IC SER IC SER ELEC PUMP INC INC STATION/P RTBLE WND CARE A6550 [facility] SET NEG 2 THERAPEUT THERAPEUT PRSS WND IC SER IC SER TX ELEC INC INC PUMP SPL ADMN SET A7003 YOUR YOUR SM VOL 2 PHARMACY PHARMACY NONFILTR PNEUMAT NEBULIZR DISPBL CANISTER A7000 [facility] DISPOSABL 2 THERAPEUT THERAPEUT E USED IC SER IC SER WITH INC INC SUCTION PUMP EACH [facility] 07464 [facility] 2 INPATIENT ALI DAY MEDICINE MANAGEMEN T > 30 MIN SBSQ [address] [place] [address] INPATIENT ALI CARE/DAY MEDICINE 25 MINUTES [facility] [address] [facility] 2 INPATIENT ALI CARE/DAY MEDICINE 35 MINUTES INITIAL 17450 [facility] 2 INPATIENT ALI CARE/DAY MEDICINE 70 MINUTES RADIOLOGI 38631 [facility] [place] C 2 RADIOLOGY RAY EXAMINATI ON CHEST SINGLE VIEW FRONTAL FULL FACE A7030 [facility] MASK 2 HOME HOME USED MEDICAL MEDICAL W/POS EQUIPME EQUIPME ARWAY PRESS DEVICE EA FILTER A7038 [facility] DISPBL 2 HOME HOME USED MEDICAL MEDICAL W/POS EQUIPME EQUIPME ARWAY PRESSURE DEVICE FILTER A7039 [facility] NON 2 HOME HOME DISPBL MEDICAL MEDICAL USED EQUIPME EQUIPME W/POS ARWAY PRESS DEVICE HEADGEAR A7035 [facility] USED 2 HOME HOME W/POSITIV MEDICAL MEDICAL E AIRWAY EQUIPME EQUIPME PRESSURE DEVICE TUBING A7037 ABDONBLANE [place] USED WITH 2 HOME HOME POSITIVE MEDICAL MEDICAL AIRWAY EQUIPME EQUIPME PRESSURE DEVICE CONTINUOU E0601 [facility] S 2 HOME HOME POSITIVE MEDICAL MEDICAL AIRWAY EQUIPME EQUIPME PRESSURE DEVICE HUMDIFIR E0562 [facility] HEATED 2 HOME HOME USED MEDICAL MEDICAL W/POS EQUIPME EQUIPME ARWAY PRESSURE DEVICE PRTBLE E0431 [facility] A[facility] GASEOUS 2 HOME HOME O2 SYS MEDICAL MEDICAL RENT; EQUIPME EQUIPME FLWMTR HUMIDFR&M ASK O2 CONC 1 E1390 A[facility]ONBLANE [place] 2 HOME HOME 85%/>02 MEDICAL MEDICAL CONC AT EQUIPME EQUIPME PRSC FLW RATE SBSQ [id number] [facility] 2 INPATIENT CARE/DAY MEDICINE 25 MINUTES SBSQ 08765 [facility] 2 Y [facility] CARE/DAY ASSOCIATE 15 S MINUTES SBSQ [address] [place] [address] [facility] CARE/DAY ASSOCIATE 25 S MINUTES SBSQ 41287 [facility] 2 [facility] CARE/DAY EAST 35 PULMONARY MINUTES SBSQ 48447 [facility] 2 [facility] CARE/DAY EAST 35 PULMONARY MINUTES SBSQ 29038 [facility] 2 INPATIENT CARE/DAY MEDICINE 25 MINUTES SBSQ 02816 [facility] 2 INPATIENT CARE/DAY MEDICINE 25 MINUTES CRITICAL 34231 [facility] 2 SUZANNE GRA ILL/INJUR EAST ED PULMONARY PATIENT INIT 30-74 MIN RADIOLOGI 68716 [facility] [place] C 2 RADIOLOGY LD IV A EXAMINATI ON CHEST SINGLE VIEW FRONTAL RADIOLOGI 41282 [facility] [place] C 2 RADIOLOGY LD IV A EXAMINATI ON CHEST SINGLE VIEW FRONTAL SBSQ [id number] [facility] 2 INPATIENT CARE/DAY MEDICINE 25 MINUTES SBSQ 63539 [facility] 2 ART GRA CARE/DAY EAST 35 PULMONARY MINUTES SBSQ 53524 [facility] 2 Y [facility] [facility] CARE/DAY ASSOCIATE 35 S MINUTES ECG 42119 [facility] ROUTINE 2 [facility] ECG CLINIC W/LEAST PSC 12 LDS I&R ONLY SBSQ 69362 [facility] 2 INPATIENT CARE/DAY MEDICINE 25 MINUTES CRITICAL 43397 [facility] 2 SUZANNE ANA ILL/INJUR EAST ED PULMONARY PATIENT INIT 30-74 MIN RADIOLOGI 37577 [facility] RHETT SANDOVAL C 2 RADIOLOGY III KEITH EXAMINATI ON CHEST SINGLE VIEW FRONTAL RADIOLOGI 55072 [facility] RHETT SANDOVAL C 2 RADIOLOGY III KEITH EXAMINATI ON CHEST SINGLE VIEW FRONTAL CRITICAL 39398 [facility] 2 SUZANNE ANA ILL/INJUR EAST ED PULMONARY PATIENT INIT 30-74 MIN SBSQ 67940 [facility] 2 INPATIENT CARE/DAY MEDICINE 25 MINUTES SBSQ 68017 [facility] 2 INPATIENT ARU CARE/DAY MEDICINE 25 MINUTES CRITICAL 47581 [facility] EMERGENCY DEPARTMENT 2 SUZANNE ILL/INJUR EAST ED PULMONARY PATIENT INIT 30-74 MIN SBSQ 25546 [facility] 2 Y [facility] CARE/DAY ASSOCIATE 35 S MINUTES RADIOLOGI 37542 [facility] [place] RONALDO C 2 RADIOLOGY STEPHANY EXAMINATI ON CHEST SINGLE VIEW FRONTAL DAILY 25766 [facility] MG[facility] 2 A MIH ASSOCIATE EDRL/PAULETTE S PSC CH CONT DRUG ADMN RADIOLOGI 63163 [facility] [place] MAT C 2 RADIOLOGY EXAMINATI ON CHEST SINGLE VIEW FRONTAL INITIAL 51413 NEPHROLOG [facility] 2 Y THO CARE/DAY ASSOCIATE 70 S MINUTES SBSQ 12615 [facility] 2 INPATIENT ARU CARE/DAY [place]IC[place] 35 [place] [address] [facility] [place] IRVIN RETROPERI 2 RADIOLOGY RAY TONEAL REAL TIME W/IMAGE LIMITED INSJ 39544 [facility] NON-TUNNE 2 SUZANNE SAWYER LED [facility] CENTRAL PULMONARY VENOUS CATH AGE 4 YR/> ARTL 91699 [facility] CATHJ/CAN 2 SUZANNE SAWYER NULJ [facility] MNTR/SWIFT PULMONARY SFUSION SPX PRQ CRITICAL 59162 [facility] 2 SUZANNE SAWYER ILL/INJUR [facility] ED PULMONARY PATIENT INIT 30-74 MIN CENTRAL 3897 [facility] VENOUS [address] [place] [address] CATHETER PLACEMENT WITH GUIDANCE INSERTION 9604 [facility] OF [address] [place] [address] ENDOTRACH EAL TUBE ARTERIAL 3891 [facility] CATHETERI [address] [place] [address] ZATION CONT 9672 [facility] INVASIVE [address] [place] [address] MECH VENT 96 CONSECUTI VE HRS/MORE PARTIAL [address] [place] ECG 53292 [facility] ROUTINE 2 [place] ECG CLINIC W/LEAST PSC 12 LDS [place] L[place] [address] [facility] 2 [facility] PATHOLOGY CLINIC PSC GROSS&MIGUEL ROSCOPIC EXAM INITIAL 86346 [facility] 2 INPATIENT ARU CARE/DAY MEDICINE 70 MINUTES NJXS 86462 ANESTHESI VANCE INFUS/MAITE 2 A SCO US ASSOCIATE DX/SBST S PSC EDRL/SUBA PETER CRV/THRC NEPHRECTO 83281 [facility] 2 [facility] THO PARTIAL CLINIC PSC ANES 31676 ANESTHESI CIFUENTES LAR XTRPRTL 2 A LOWER ABD ASSOCIATE UR TRACT S PSC RENAL DON NFRCT RADIOLOGI 13567 [facility] [place] [facility] C EXAM 2 RADIOLOGY CHEST 2 VIEWS FRONTAL&L ATERAL ECG 10722 [facility] ROUTINE 2 [facility] ECG CLINIC W/LEAST PSC 12 LDS I&R ONLY O2 CONC 1 E1390 A[facility]ON COPPOLA [place] PORT 2 HOME HOME 85%/>02 MEDICAL MEDICAL CONC AT EQUIPME EQUIPME PRSC FLW RATE PRTBLE E0431 ABDON COPPOLA GASEOUS 2 HOME HOME O2 SYS MEDICAL MEDICAL RENT; EQUIPME EQUIPME FLWMTR HUMIDFR&M ASK COLLECTIO 74459 COMBINED COMBINED N VENOUS 2 PHYSICIAN PHYSICIAN BLOOD S LA S LA VENIPUNCT URE PROTHROMB 35115 COMBINED COMBINED IN TIME 2 PHYSICIAN PHYSICIAN S LA S LA URNLS DIP 78553 [facility]RIC [facility] 2 FOOT & JR THO STICK/TAB ANKLE LET RGNT SPECI AUTO W/O MICROSCOP Y HEMOGLOBI 81101 [facility] N 2 GLYCOSYLA CORTNEY A1C PROTHROMB 43035 COMBINED COMBINED IN TIME 2 PHYSICIAN PHYSICIAN S LA S LA COLLECTIO 60786 COMBINED COMBINED N VENOUS 2 PHYSICIAN PHYSICIAN BLOOD S LA S LA VENIPUNCT URE COLLECTIO 97067 COMBINED COMBINED N VENOUS 2 PHYSICIAN PHYSICIAN BLOOD S LA S LA VENIPUNCT URE URNLS DIP 32091 [facility] [place] THO STICK/TAB CLINIC LET PSC REAGENT AUTO MICROSCOP Y PROTHROMB 33716 COMBINED COMBINED IN TIME 2 PHYSICIAN PHYSICIAN S LA S LA PROTHROMB 10614 COMBINED COMBINED IN TIME 2 PHYSICIAN PHYSICIAN S LA S LA COLLECTIO 01984 COMBINED COMBINED N VENOUS 2 PHYSICIAN PHYSICIAN BLOOD S LA S LA VENIPUNCT URE COLLECTIO 88111 COMBINED COMBINED N VENOUS 2 PHYSICIAN PHYSICIAN BLOOD S LA S LA VENIPUNCT URE PROTHROMB 57750 COMBINED COMBINED IN TIME 2 PHYSICIAN PHYSICIAN S LA S LA PROTHROMB 76071 COMBINED COMBINED IN TIME 2 PHYSICIAN PHYSICIAN S LA S LA COLLECTIO 71382 COMBINED COMBINED N VENOUS 2 PHYSICIAN PHYSICIAN BLOOD S LA S LA VENIPUNCT URE COLLECTIO 47690 COMBINED COMBINED N VENOUS 2 PHYSICIAN PHYSICIAN BLOOD S LA S LA VENIPUNCT URE PROTHROMB 14083 COMBINED COMBINED IN TIME 2 PHYSICIAN PHYSICIAN S LA S LA CLOTTING 61670 [facility] INHIBITOR 2 AMERIC AMERIC S [employer]OTEIN [employer] HOLDINGS C ACTIVITY PROTHROMB 97961 COMBINED COMBINED IN TIME 2 PHYSICIAN PHYSICIAN S LA S LA CYSTOURET 71116 [facility] HROSCOPY 2 FOOT & THO ANKLE SPECI CLOTTING 84702 [facility] INHIBITOR 2 AMERIC AMERIC S [employer] S FREE CT THORAX 53261 [facility] [place] 2 RADIOLOGY RHO W/[place] [address] [facility] [place] ABDOMEN & 2 RADIOLOGY RHO PELVIS W/O CONTRST 1/> BODY RE URNLS DIP [address]/[facility] LET REAGENT AUTO MICROSCOP Y COLLECTIO 32918 COMBINED COMBINED N VENOUS 2 PHYSICIAN PHYSICIAN BLOOD S LA S LA VENIPUNCT URE COLLECTIO 27428 COMBINED COMBINED N VENOUS 2 PHYSICIAN PHYSICIAN BLOOD S LA S LA VENIPUNCT URE PROTHROMB 70125 COMBINED COMBINED IN TIME 2 PHYSICIAN PHYSICIAN S LA S LA ECHO 93332 CEN[facility]AL CENTRAL TTHRC R-T 2 [facility] H[facility]P W/WOM-MOD E COMPL SPEC&COLR D O2 CONC 1 E1390 ABDON COPPOLA DEL PORT 2 HOME HOME 85%/>02 MEDICAL MEDICAL CONC AT EQUIPME EQUIPME PRSC FLW RATE PRTBLE E0431 ABDON COPPOLA GASEOUS 2 HOME HOME O2 SYS MEDICAL MEDICAL RENT; EQUIPME EQUIPME FLWMTR HUMIDFR&M ASK COMPREHEN 61221 COMBINED COMBINED SIVE 2 PHYSICIAN PHYSICIAN METABOLIC S LA S LA PANEL COLLECTIO 83582 COMBINED COMBINED N VENOUS 2 PHYSICIAN PHYSICIAN BLOOD S LA S LA VENIPUNCT URE PROTHROMB 27625 COMBINED COMBINED IN TIME 2 [place] [address] COMBINED COMBINED THYROID 2 PHYSICIAN PHYSICIAN STIMULATI [place] [address] COMBINED COMBINED FREE 2 PHYSICIAN PHYSICIAN THYROXINE S LA S LA BLOOD 66265 COMBINED COMBINED COUNT 2 PHYSICIAN PHYSICIAN COMPLETE S LA S LA AUTO&AUTO DIFRNTL WBC HEMOGLOBI 64224 COMBINED COMBINED N 2 PHYSICIAN PHYSICIAN GLYCOSYLA S LA S LA CORTNEY A1C NATRIURET 75982 [facility] IC 2 [facility] THER 38097 [facility] PROPH/DX 2 [facility] NJX IV HOSP HOSP PUSH SINGLE/1S T SBST/DRUG PROTHROMB 24886 [facility] IN TIME 2 [facility] RADIOLOGI 96696 [facility] C EXAM 2 [facility] CHEST 2 HOSP HOSP VIEWS FRONTAL&L ATERAL BLOOD 95763 [facility] COUNT 2 [facility] COMPLETE [facility] HOSP AUTO&AUTO DIFRNTL WBC COMPREHEN 32921 [facility] SIVE 2 [facility] METABOLIC [facility] HOSP PANEL NONCOVERE A9270 CEN[facility]AL [facility] D ITEM OR 2 [facility] HOSP PROTHROMB 27916 COMBINED COMBINED IN TIME 2 PHYSICIAN PHYSICIAN S LA S LA COLLECTIO 55315 COMBINED COMBINED N VENOUS 2 PHYSICIAN PHYSICIAN BLOOD S LA S LA VENIPUNCT URE BLOOD 16669 [place] COUNT 2 [facility] AUTO&[place] [address] [facility] [place] ABDOMEN & 2 RADIOLOGY RAY PELVIS W/CONTRAS T MATERIAL PROTHROMB 87205 [place] IN TIME 2 [facility] THER 11932 [place] PROPH/DX 2 [facility] NJX IV HOSPITAL HOSPITAL PUSH SINGLE/1S T SBST/DRUG URNLS DIP [address] [place] [address] [facility] STICK/TAB HOSPITAL HOSPITAL LET REAGENT AUTO MICROSCOP Y COLLECTIO 64397 [place] N VENOUS 2 [facility] VENIPUNCT [facility] BASIC 40529 [facility] METABOLIC 2 [facility] CALCIUM TOTAL PROTHROMB 23723 COMBINED COMBINED IN TIME 2 PHYSICIAN PHYSICIAN S LA S LA COLLECTIO 49282 COMBINED COMBINED N VENOUS 2 PHYSICIAN PHYSICIAN BLOOD S LA S LA [facility] 93815 [facility] 2 MEDICINE DEN DAY SERV MANAGEMEN @CTRL BAP T > 30 MIN SBSQ 09426 [place] [address] MEDICINE DEN CARE/DAY SERVICES 25 MINUTES SBSQ 78742 [place] [address] MEDICINE DEN CARE/DAY SERVICES 25 MINUTES SBSQ 77667 [place] [address] MEDICINE DEN CARE/DAY SERVICES 35 MINUTES SBSQ 64603 [place] [address] MEDICINE DEN CARE/DAY SERVICES 35 MINUTES SBSQ 07299 [facility] 2 MEDICINE CARE/DAY SERV 35 @CTRL BAP MINUTES INITIAL 46429 [facility] 2 [facility]/DAY CLINIC 50 PSC MINUTES SBSQ 14369 [place] [address] ONCOLOGY CARE/DAY ASSOCIATE 15 S MINUTES INITIAL [address] CARE/[place] [address] [place] [address] C[facility]AL GARZA ADA ABDOMEN & 2 RADIOLOGY PELVIS ASSOC W/O CONTRAST MATERIAL VENOGRAPH 41176 [facility]AL 2 SURGICAL THO INFERIOR ASSOCIATE SERIALOGR S APHY RS&I DUP-SCAN 58104 [facility] XTR VEINS 2 ANT COMPLETE CARDIOLOG Y AT [facility] BILATERAL STUDY ANGIOCARD 8851 CEN[facility]AL [facility] IOGRAPHY 2 [facility] CAVAE INTERRUPT 387 CENTRAL CENTRAL ION OF 2 [facility] CAVA ECHO 81133 [facility] TTHRC R-T 2 IV HEN 2D CARDIOLOG W/WOM-MOD Y AT CENT E COMPL SPEC&COLR D INTRO 52384 KEE SWEET CATHETER 2 THO THO SUPERIOR/ INFERIOR VENA CAVA INS 14880 KEE SCHWCATA INTRVAS 2 THO THO VC FILTR W/WO VAS ACS VSL SELXN RS&I COMPREHEN 14744 YNES QUICK SIVE 2 [facility] PANEL BLOOD 42349 YNES QUICK COUNT 2 [facility] AUTO&AUTO DIFRNTL WBC ECG 08462 ROBBY BUSTAMANTE ROUTINE 2 EMERGENCY EMERGENCY ECG SERVICES SERVICES W/LEAST 12 LDS I&R ONLY THERAPEUT 68437 YNES QUICK IC 2 [facility] INJECTION [facility] IV PUSH EACH NEW DRUG CULTURE 78058 [facility] BACTERIAL 2 [facility] AEROBIC W/ID ISOLATES THROMBOPL 60626 YNES QUICK ASTIN 2 [facility] PARTIAL PLASMA/WH OLE BLOOD COLLECTIO 15120 YNES QUICK N VENOUS 2 [facility] VENIPUNCT URE PROTHROMB 38933 YNES QUICK IN TIME [address] [place] [address] FIBRIN 21509 YNES QUICK DGRADJ 2 [facility] D-DIMER QUANTITAT JOANIE ECG 27381 YNES QUICK ROUTINE 2 [facility] W/LEAST 12 LDS TRCG ONLY W/O I&R THER 57531 YNES QUICK PROPH/DX [facility] NJX IV HOSPITAL HOSPITAL PUSH SINGLE/1S T SBST/DRUG THERAPEUT [address] Y[address] QU[address] IC [address] [facility] PROPHYLAC [facility] TIC/DX INJECTION SUBQ/IM RADIOLOGI 73694 ROBBY BUSTAMANTE C 2 EMERGENCY EMERGENCY EXAMINATI SERVICES SERVICES ON CHEST SINGLE VIEW FRONTAL CT THORAX 92122 [facility] T MATERIAL RADIOLOGI 50902 [facility] LUDWIG C EXAM [address] VIEWS FRONTAL&L ATERAL PRTBLE E0431 ABDON COPPOLA GASEOUS 2 HOME HOME O2 SYS MEDICAL MEDICAL RENT; EQUIPME EQUIPME FLWMTR HUMIDFR&M ASK O2 CONC 1 E1390 ABDON COPPOLA DEL PORT 2 HOME HOME 85%/>02 MEDICAL MEDICAL CONC AT EQUIPME EQUIPME [facility] FLW RATE BASIC [address] METABOLIC 2 [facility] [place] [place] [facility] PANEL INC INC CALCIUM TOTAL CYTP 37203 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 2 Y MONICA OF Y MONICA OF CELL LINDA LINDA ENHANCEME H H NT INTERPJ XCPT C/V CUL BACT [address] XCPT 2 [facility] [place] [place] [facility] URINE INC INC BLOOD/STO OL AEROBIC ISOL THERAPEUT [address] IC 2 [facility] HOSP INJECTION INC INC IV PUSH EACH NEW DRUG PRESSURIZ [address] ED/NONPRE 2 [facility] HOSP SSURIZED [place] [address] INFUSION 2 [facility] HOSP THERAPY/P INC INC ROPHYLAXI S /DX 1ST TO 1 HR URNLS DIP [address] STICK/TAB CLINIC LET PSC REAGENT AUTO MICROSCOP Y SMR PRIM [address] SRC 2 [facility] [place] [place] [facility] [place] [place] [facility] GRAM/GIEM INC INC SA STAIN BCT FUNGI/LEODAN L CULTURE [address] BACTERIAL 2 [facility] HOSP BLOOD INC INC AEROBIC W/ID ISOLATES RADIOLOGI 55165 [facility] EXAM 2 MEDICAL STEFF CHEST 2 IMAGING VIEWS ASS FRONTAL&L ATERAL PROTHROMB [address] IN TIME 2 [facility] [place] [place] [facility] [place] [place] [address] LAB MONICA LAB MONICA PROSTATE 2 AMERIC AMERIC 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 TOTAL BLOOD [address] COUNT 2 [facility] [place] [place] [facility] COMPLETE INC INC AUTO&AUTO DIFRNTL WBC O2 CONC 1 E1390 ABDON COPPOLA DEL PORT 2 HOME HOME 85%/>02 MEDICAL MEDICAL CONC AT EQUIPME EQUIPME [facility] FLW RATE PRTBLE E0431 ABDON COPPOLA GASEOUS 2 HOME HOME O2 SYS MEDICAL MEDICAL RENT; EQUIPUT EQUIPUT FLWMTR HUMIDFR&M ASK MRI BRAIN 28922 NEURODIAG [place] BRAIN 2 NOSTICPSC ROL STEM W/[place] [address] NIKA DAGOBERTO HEAD/BRAI 2 MEDICAL STEFF N W/O IMAGING CONTRAST ASS MATERIAL CT ORBIT 24129 NIKA DAGOBERTO SELLA/POS 2 MEDICAL STEFF T IMAGING FOSSA/EAR ASS W/O CONTRAST MATRL 3D [address] RENDERING 2 [facility] W/INTERP INC INC & POSTPROCE SS SUPERVISI ON THERAPEUT [address] IC 2 [facility] HOSP PROPHYLAC INC INC TIC/DX INJECTION SUBQ/IM PROTHROMB 26802 OZIELON RASHIDAURBON IN TIME 2 [facility] COLLECTIO 26126 [place] N VENOUS 2 [facility] VENIPUNCT URE PROTHROMB 28772 [place] IN TIME 2 [facility] COLLECTIO 45410 [place] N VENOUS 2 [facility] VENIPUNCT URE DUP-SCAN 23284 BOSOLITARIOON RASHIDAURBON XTR VEINS 2 [facility] BILATERAL STUDY RADIOLOGI 19419 [facility] [place] C EXAM 2 RADIOLOGY CHEST 2 VIEWS FRONTAL&L ATERAL O2 CONC 1 E1390 ABDON COPPOLA DEL PORT 2 HOME HOME 85%/>02 MEDICAL MEDICAL CONC AT EQUIPME EQUIPME PRSC FLW RATE PRTBLE E0431 ABDON COPPOLA GASEOUS 2 HOME HOME O2 SYS MEDICAL MEDICAL RENT; EQUIPME EQUIPME FLWMTR HUMIDFR&M [facility] 70612 [facility] 2 EMERGENCY DENISE DAY SERVICES MANAGEMEN T > 30 MIN SBSQ 81309 [facility] 2 EMERGENCY DENISE CARE/DAY SERVICES 25 MINUTES SBSQ 70893 [facility] 2 EMERGENCY DENISE CARE/DAY SERVICES 25 MINUTES SBSQ 83800 [facility] 2 EMERGENCY DENISE CARE/DAY SERVICES 25 MINUTES ECHO 15803 PEPE NEVAREZ NEVAREZ PEPE TTHRC R-T 2 2D CONSULTIN W/WOM-MOD G SERV E COMPL SPEC&COLR D DUP-SCAN 22024 PEPE NEVAREZ NEVAREZ PEPE XTR VEINS 2 COMPLETE CONSULTIN G SERV BILATERAL STUDY INITIAL 82786 [facility] 2 EMERGENCY DENISE CARE/DAY SERVICES [address] THORAX 77037 [facility] [place] 2 RADIOLOGY RAY W/CONTRAS T MATERIAL RADIOLOGI 39004 [facility] [place] C 2 RADIOLOGY EXAMINATI ON CHEST SINGLE VIEW FRONTAL ECG 08036 ROBBY GRAY ISIDORO ROUTINE 2 EMERGENCY ECG SERVICES W/LEAST 12 LDS I&R ONLY CRITICAL 01718 ROBBY GRAY ISIDORO CARE 2 EMERGENCY ILL/INJUR SERVICES ED PATIENT INIT 30-74 MIN COMPREHEN 12150 [facility] SIVE 2 [facility]OSP PANEL CULTURE 65643 [facility]EN[facility]TRAL BACTERIAL 2 [facility] QUANTTAT[place] [address] CENTRAL CENTRAL BLOOD/URI 2 [facility] C ACID [facility]OSP HOSP BLOOD 46687 CENTRAL [facility] COUNT 2 [facility] COMPLETE HOSP HOSP AUTO&AUTO DIFRNTL WBC URNLS DIP 95203 CENTRAL CENTRAL 2 [facility] STICK/TAB HOSP HOSP LET REAGENT AUTO MICROSCOP Y URNLS DIP 33697 [facility] MUR 2 STICK/TAB LET RGNT NON-AUTO W/O MICRSCP IAADIADOO 07339 [facility] MUR 2 STREPTOCO CCUS GROUP A HEMOGLOBI 65898 [facility] M[facility] N 2 GLYCOSYLA CORTNEY A1C BLOOD [address] GASES ANY 2 MEM H[facility] INC INC COMBINATI ON PH PCO2 PO2 [place]2 [place] [address] TROPONIN 2 MEM HOS[facility] MEM HOS[facility] QUANTITAT INC INC JOANIE NATRIURET [address] IC 2 MEM [facility] MEM HOSP PEPTIDE INC INC BLOOD [address] COUNT 2 MEM [facility]OS[facility] COMPLETE INC INC AUTO&AUTO DIFRNTL WBC CREATINE [address] KINASE MB 2 MEM HOS[facility] MEM HOS[facility] FRACTION INC INC ONLY RADIOLOGI 67124 NIKA Daniel 2 MEDICAL STEFF EXAMINATI IMAGING ON CHEST ASS SINGLE VIEW FRONTAL IAADI [address] INFLUENZA 2 MEM [facility] B VIRUS INC INC IAADI [address] INFFLUENZ 2 [facility] A A VIRUS INC INC ECG 01361 ARIANA ARIANA ROUTINE 2 [facility] ECG INC INC W/LEAST 12 LDS TRCG ONLY W/O I&R CREATINE [address] KINASE 2 [facility] TOTAL INC INC CULTURE [address] BACTERIAL 2 [facility]OS[facility] BLOOD INC INC AEROBIC W/ID ISOLATES COMPREHEN [address] SIVE 2 [facility] METABOLIC INC INC PANEL ECG 98568 ROBBY GUAN ROUTINE 2 EMERGENCY MIGUEL ECG SERVICES W/LEAST 12 LDS [place] [address] ARIANA ARIANA INFUSION 2 [facility] THERAPY/P INC INC ROPHYLAXI S /DX 1ST TO [address] ED/NONPRE 2 [facility]OS[facility] SSURIZED INC INC INHALATIO N TREATMENT THERAPEUT [address] IC 2 [facility] INJECTION [place] [address] YNES QUICK HEAD/BRAI 1 [facility] N W/O HOSPITAL HOSPITAL CONTRAST MATERIAL INSJ TEMP [address] NDWELLG 1 [facility] BLADDER INC INC CATHETER SIMPLE BLOOD [address] COUNT 1 [facility] COMPLETE INC INC AUTO&AUTO DIFRNTL WBC URNLS DIP [address] 1 [facility] STICK/TAB INC INC LET REAGENT AUTO MICROSCOP Y COMPREHEN [address] SIVE 1 [facility]OS[facility] METABOLIC INC INC PANEL SPMTRY 82608 [facility] MUR W/VC 1 EXPIRATOR Y HANSEL W/WO MXML VOL VNTJ MULTIPLE 85038 ADVANCED ADVANCED NERVE 1 PAIN PAIN BLOCK MEDICIINE MEDICIINE INJECTION PSC PSC S RIB NERVES FLUOROSCO 61731 ADVANCED ADVANCED PIC 1 PAIN PAIN GUIDANCE MEDICIINE MEDICIINE NEEDLE PSC PSC PLACEMENT ADD ON RADEX 75616 [facility] SPINE 1 [facility] THORACIC [facility] 2 [place] [address] [facility] FREE [address] [facility] THYROXINE [facility] [place] [address] [facility] THYROID 1 [facility] TSH HEMOGLOBI 93613 [facility] N 1 [facility] CORTNEY A1C COLLECTIO 28609 [facility] N VENOUS 1 [facility] VENIPUNCT URE RADIOLOGI 34343 [facility] C EXAM 1 [facility] CHEST [address] [place] [address] HOSPITAL VIEWS FRONTAL&L ATERAL BLOOD 54294 [facility] COUNT 1 [facility] SMEAR [facility] MCRSCP W/MNL DIFRNTL WBC COUNT COMPREHEN 84993 [facility] SIVE 1 [facility] METABOLIC [facility] PANEL BLOOD 05576 [facility] COUNT 1 [facility] AUTOMATED URNLS DIP [address] STICK/TAB HOSPITAL HOSPITAL LET REAGENT AUTO MICROSCOP Y LIPID 45654 [facility] PANEL 1 [facility] INJECTION 81154 ADVANCED VERDUGO 1 PAIN [place] ANESTHETI MEDICIINE C AGENT PSC [facility] NRV INJECTION J3301 [facility] 1 [place]IN [place] TRIAMCINO MEDICIINE LONE PSC ACETONIDE NOS 10 MG INJECTION J3301 [facility]ED ADVANCED 1 PAIN PAIN TRIAMCINO MEDICIINE MEDICIINE LONE PSC PSC ACETONIDE NOS 10 MG NJX 80820 [facility] DX/THER 1 [place]IN [place] AGT PVRT MEDICIINE FACET JT PSC CRV/THRC 1 [place]EL NJX 28022 [facility] DX/THER 1 [place] AGT PVRT MEDICIINE FACET JT PSC CRV/THRC 3+ LEVEL MODERATE 44767 [facility] SEDATJ 1 [place] SAME MEDICIINE PHYS/QHP PSC 5/>YRS INIT 30 MIN NJX 61115 [facility] DX/THER 1 [place] AGT PVRT MEDICIINE FACET JT PSC CRV/THRC 2ND LEVEL LOCM Q9965 [facility] 100-199 1 [place]IN [place] MG/ML MEDICIINE IODINE PSC CONCENTRA TION PER ML INFLUENZA Q2038 [facility] VACC 1 SPLIT VIRUS 3 YRS & > IM FLUZONE ADMINISTR G0008 [facility] ATION OF 1 INFLUENZA VIRUS VACCINE OPHTH 57848 [facility] 1 VISION XM&EVAL COMPRE NEW PT 1/> VST INJECTION J3301 [facility] 1 [place]IN [place] TRIAMCINO MEDICIINE LONE PSC ACETONIDE NOS 10 MG FLUOR 43537 [facility] NEEDLE/CA 1 [place] TH MEDICIINE SPINE/PAR PSC ASPINAL DX/THER ADDON MODERATE 92073 [facility] SEDATJ 1 [place] SAME MEDICIINE PHYS/QHP PSC 5/>YRS INIT 30 MIN NJX 74414 [facility] DX/THER 1 [place] SBST MEDICIINE EPIDURAL/ PSC SUBRACH CERV/THOR ACIC HEMOGLOBI 75837 [facility] N 1 GLYCOSYLA CORTNEY A1C INJECTION J3301 [facility] 1 [place]IN [place] TRIAMCINO MEDICIINE LONE PSC ACETONIDE NOS 10 MG NJX 56508 [facility] DX/THER 1 [place] AGT PVRT MEDICIINE FACET JT PSC CRV/THRC 3+ LEVEL NJX 87752 [facility] DX/THER 1 [place] AGT PVRT MEDICIINE FACET JT PSC CRV/THRC 1 LEVEL MODERATE 07682 [facility] SEDATJ 1 [place] SAME MEDICIINE PHYS/QHP PSC 5/>YRS INIT 30 MIN NJX 85759 [facility] DX/THER 1 [place] AGT PVRT MEDICIINE FACET JT PSC CRV/THRC 2ND LEVEL LOCM Q9965 [facility] 100-199 1 [place] MG/ML MEDICIINE IODINE PSC CONCENTRA TION PER ML INJECTION J1030 [facility] 1 METHYLPRE DNISOLONE ACETATE 40 MG INJECTION J1100 [facility] 1 DEXAMETHO SONE SODIUM PHOSPHATE 1 MG MRI 90480 [facility] [place] SPINAL 1 NOSTICPSC ROL CANAL THORACIC W/O CONTRAST MATRL MRI 31150 [facility] [place] SPINAL 1 NOSTICPSC ROL CANAL LUMBAR W/O CONTRAST MATERIAL MRI 61850 [facility] [place] ABDOMEN 1 NOSTICPSC ROL W/O & W/CONTRAS T MATERIAL MRI [address] SPINAL 1 [facility] CANAL INC INC CERVICAL W/O CONTRAST MATRL 3D 38335 ARIANA ARIANA RENDERING 1 [facility] W/INTERP INC INC & POSTPROCE SS SUPERVISI ON PROSTATE G0103 [facility] 1 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 ; PSA TEST CT THORAX 98561 [facility] [address] [facility] G[facility]IAN[facility] ABDOMEN [address] [facility] W/[facility] CONTRAST MATERIAL RADIOLOGI 19609 [facility] [place] SEAN Shah C EXAM 1 RADIOLOGY CHEST 2 VIEWS FRONTAL&L ATERAL HEMOGLOBI 59181 [facility] N 1 GLYCOSYLA CORTNEY A1C NATRIURET 63946 [facility] IC 1 [facility] [place] [address] [facility] TROPONIN 1 [facility] JOANIE COLLECTIO 78897 [facility] VENOUS 1 [facility] VENIPUNCT URE RADIOLOGI 79281 [facility] C EXAM [address] VIEWS FRONTAL&L ATERAL THROMBOPL 60849 YNES QUICK ASTIN 1 [facility] PARTIAL PLASMA/WH OLE BLOOD FIBRIN 86412 YNES QUICK DGRADJ 1 [facility] D-DIMER QUAL/SEMI FLACO PROTHROMB 58892 YNES QUICK IN TIME 1 [facility] ECG 32468 YNES QUICK ROUTINE 1 [facility] W/LEAST 12 LDS TRCG ONLY W/O I&R THER 54438 YNES QUICK PROPH/DX 1 [facility] PUSH SINGLE/1S T SBST/DRUG COMPREHEN 05610 YNES QUICK SIVE 1 [facility] PANEL BLOOD 33547 YNES QUICK COUNT 1 [facility] AUTO&AUTO DIFRNTL WBC Encounters Encounter Start End Date Code Location Performer Type Date OFFICE 79607 [facility] T VISIT PRACTICE 25 L MINUTES EMERGENCY 31233 ADRIANE BURKS 7 7 PHYSICIAN U DEPARTMEN S, PLLC T VISIT HIGH/URGE NT SEVERITY [facility] YNES - 7 7 [facility] T OFFICE 09296 [facility] 7 [place] [facility] 25 PSC MINUTES OFFICE 96949 [facility] 7 7 PHYSICIAN T VISIT PRACTICE 15 L MINUTES OFFICE 38387 YNES [facility] 7 7 PHYSICIAN T VISIT PRACTICE 15 L MINUTES EMERGENCY 27496 [facility] DEPT 7 7 JEROD VISIT EMERGENCY HIGH PHYS SEVERITY& THREAT FUNCJ OFFICE 96764 STE[facility]ANIE [facility] 7 7 [place] [facility] 40 PSC MINUTES [facility] - 7 7 [facility] T OFFICE 92123 YNES [facility]ATE OUT[facility] 7 7 PHYSICIAN T VISIT PRACTICE 15 L MINUTES OFFICE 17075 NEPHROLOG [facility] OUTPATI[facility] 7 7 Y T VISIT ASSOCIATE 25 S OF CIELO MINUTES EMERGENCY 89868 ADRIANE GOLDSMITH 7 7 PHYSICIAN DEPARTMEN S, PLLC T VISIT HIGH/URGE NT SEVERITY [facility] - 7 7 [facility] T OFFICE 94619 [facility] PHYSICIAN T VISIT PRACTICE 15 L MINUTES OFFICE 86652 [facility] 7 7 PHYSICIAN T VISIT PRACTICE 15 L MINUTES OFFICE 57699 [facility]IE [facility] 7 7 [place] [facility] 15 PSC MINUTES EMERGENCY 38481 [place] 7 7 [facility] DEPARTMEN INC T VISIT MODERATE SEVERITY [facility] - 7 7 [facility] OUTPATIEN INC H[facility]PITAL [facility] - 6 6 [facility] T EMERGENCY 13576 [facility] [facility] 6 6 [facility] STRIDE DEPARTMEN INC PROGRAM T VISIT HIGH/URGE NT SEVERITY HOSPITAL [place] - 6 6 [facility] [place] [place] [facility] OUTPATIEN [facility] T OFFICE 01697 STE[facility]IE [facility] 6 6 [place] JUS T VISIT CLINIC 15 PSC MINUTES OFFICE 65135 NEPHROLOG SAUNDERS OUTPATIEN 6 6 Y [place] T VISIT ASSOCIATE 40 S OF CIELO MINUTES HOSPITAL [facility] - 6 6 N OUTPATIEN COMMUNTIY T [facility] - 6 6 [facility] T OFFICE 39189 DAPHNE DAPHNE OUTPATIEN 6 6 ANA ANA T NEW 45 MINUTES OFFICE 57596 [facility] 6 6 [facility] T VISIT MEDICAL 15 G MINUTES OFFICE [address] [facility] VIOLET OUTPATIEN 6 6 [facility] T NEW 45 MEDICAL MINUTES G [facility]OSPITAL [facility] - 6 6 HEALTH OUTPATIEN [place] T OFFICE 33885 PEPE NEVAREZ NEVAREZ PEPE OUTPATIEN 5 5 MD T VISIT CONSULTIN 40 G SRV MINUTES [facility] - 5 5 [facility] OUTPATIEN INC T EMERGENCY 52147 [facility] 5 5 [facility] DEPARTMEN INC T VISIT MODERATE SEVERITY OFFICE 21782 STE[facility]ANIE SILVA OUTPAT[facility] 5 5 [place] JUS T VISIT CLINIC 15 PSC MINUTES [facility] - 5 5 [facility] OUTPATIEN INC T OFFICE 15802 VIJAY BUX BUX ANJ OUTPATIEN 5 5 MD T NEW 30 MINUTES [facility] - 5 5 [facility] OUTPATIEN INC [facility] [place] - 5 5 [facility]EN [facility] T [facility] [place] - 5 5 [facility]PATIEN INC T HOSPITAL UNIV[facility] - 5 5 Y INPATIENT HOSPITAL OFFICE 54535 [facility]IE SILVA OUT[facility] 5 5 [place] [facility] T VISIT CLINIC 15 PSC MINUTES Emergency AMALIA Saxena MD (ER) 4 20:18 4 22:18 [facility] Emergency AMALIA Canales (ER) 3 23:09 3 01:44 [facility] Emergency AMALIA Guan MD (ER) 3 21:23 3 00:27 [facility] Emergency AMALIA Guan MD (ER) 3 19:06 3 21:45 [facility] OFFICE 74673 ELODIA [facility] OUT[facility] 2 2 T VISIT 25 MINUTES HOSPITAL [facility] - 2 2 [facility] T EMERGENCY 03735 [facility] 2 2 [facility] DEPARTMEN HOSP T VISIT HIGH/URGE NT SEVERITY OFFICE 87797 [facility] OUT[facility] 2 2 T VISIT 25 MINUTES EMERGENCY 91345 [facility] 2 2 [facility] DEPARTMEN INC T VISIT HIGH/URGE NT SEVERITY EMERGENCY 44139 ROBBY ZIEGLER DEPT 2 2 EMERGENCY III [facility] HIGH SEVERITY& THREAT [facility] [place] - 2 2 [facility] [place] [place] [facility] OUTPATIEN INC T OFFICE 04100 ELODIA [facility] OUTPATIEN 2 2 T VISIT 25 MINUTES EMERGENCY 77076 [facility] [address] [facility] HIGH/URGE NT SEVERITY [facility]OSPITAL [place] - 2 2 [facility] [place] [place] [facility] OUTPATIEN INC T OFFICE 56150 ELODIA [facility] OUTPATIEN 2 2 T VISIT 25 MINUTES EMERGENCY 18225 [facility] DEPT 2 2 JEROD VISIT EMERGENCY HIGH PHYS SEVERITY& THREAT [facility] OFF[facility] 60807 [facility] WE[facility] M[facility] OUTPATIEN 2 2 T VISIT [address] INPATIENT OFFICE 68108 SCHWARCZ SCHWARCZ OUTPATIEN 2 2 THO THO T VISIT 25 MINUTES OFFICE 32884 [facility] 2 2 FOOT & JR THO T VISIT ANKLE 10 SPECI MINUTES OFFICE 14723 [facility] OUT[facility] 2 2 T VISIT 15 MINUTES OFFICE 66015 [facility] [place] [facility] 2 2 [place] THO T VISIT CLINIC 25 PSC MINUTES [facility] [place] - 2 2 [facility] T OFFICE 87463 [facility] OUTPATIEN 2 2 T VISIT 25 MINUTES OFFICE 07844 [facility] 2 2 ONCOLOGY T VISIT ASSOCIATE 15 S MINUTES HOSPITAL [facility] - 2 2 [facility] T EMERGENCY 53264 [facility] 2 2 [facility] HOSP T VISIT HIGH/URGE NT SEVERITY [facility]OSPITAL [facility] - 2 2 [facility] 50930 [facility] OUTPATIEN 2 2 T VISIT 25 MINUTES EMERGENCY 99498 [facility] 2 2 [facility] T VISIT HIGH/URGE NT SEVERITY HOSPITAL BOOSLIT[facility] - 2 2 [facility] T EMERGENCY 37470 PING KOEHLER DEPT 2 2 MEDICAL PAT VISIT GROUP, HIGH PLLC SEVERITY& THREAT [facility] - 2 2 [facility] INPATIENT [facility] EMERGENCY 63977 YNES DEPT 2 2 [facility] HIGH SEVERITY& THREAT [facility] - [address] [facility] 2 2 [facility] 44926 [place] 2 2 [facility] VISIT HIGH/URGE NT SEVERITY EMERGENCY 90850 ROBBY CANALES DEPT 2 2 EMERGENCY [facility] HIGH SEVERITY& [facility] OFFICE 33985 [facility] 2 2 [facility] 40 PSC MINUTES OFFICE 01798 [facility] OUTPATIEN 2 2 T VISIT 15 MINUTES OFFICE 98921 [facility] OUTPATIEN 2 2 T VISIT 15 MINUTES EMERGENCY 57762 ROBBY CANALES 2 2 EMERGENCY [facility] DEPARTMEN SERVICES T VISIT HIGH/URGE NT SEVERITY EMERGENCY 23277 [facility] 2 2 [facility] DEPARTMEN INC T VISIT LOW/MODER SEVERITY [facility] - 2 2 [facility] OUTPATIEN INC T OFFICE 39738 YEYO KENNEY OUTPATIEN 2 2 MD RG VIOLET T NEW 60 PSC MINUTES OFFICE 06111 [facility] OUTPATIEN 2 2 T VISIT 15 MINUTES EMERGENCY 77793 ROBBY BOLTON DEPT 2 2 EMERGENCY VISIT SERVICES HIGH SEVERITY& THREAT [facility] [place] - 2 2 [facility] [place] [place] [facility] OUTPATIEN INC T EMERGENCY 17689 [place] 2 2 [facility] [place] [place] [facility] DEPARTMEN INC T VISIT MODERATE SEVERITY [facility] [place] - 2 2 [facility] T OFFICE 97186 [facility] OUTPATIEN 2 2 T VISIT 25 MINUTES OFFICE 78147 [facility] OUTPATIEN 2 2 T VISIT 15 MINUTES [facility] [place] [facility] [address] [facility] [place] - 2 2 [facility] T OFFICE 96952 [facility] OUTPATIEN 2 2 T VISIT 25 MINUTES [facility] [place] - 2 2 [facility] OFFICE 94731 [facility] OUTPATI[facility] 2 2 T VISIT 15 MINUTES EMERGENCY 01532 [facility] 2 2 [facility] T VISIT LOW/MODER SEVERITY [facility] - 2 2 [facility] T OFFICE 92191 [facility] OUTPATIEN 2 2 T VISIT 25 MINUTES EMERGENCY 48151 ROBBY BOL[place] 2 2 EMERGENCY DEPARTMEN SERVICES T VISIT HIGH/URGE NT SEVERITY [facility]OSP[facility] [place] - 2 2 [facility] T EMERGENCY 97282 ROBBY GUAN DEPT 2 2 EMERGENCY MIGUEL VISIT SERVICES HIGH SEVERITY& THREAT FUNCJ EMERGENCY 98357 [place] 2 2 [facility] [place] [place] [facility] DEPARTMEN INC T VISIT HIGH/URGE NT SEVERITY OFFICE 87436 [facility] OUTPATIEN 2 2 T VISIT 15 MINUTES [facility] [place] [facility] [address] [facility] [place] - 1 1 [facility] OUTPATIEN [facility] T EMERGENCY 00180 HUMBERTO BOLTON 1 1 DEPARTMEN T VISIT HIGH/URGE NT SEVERITY EMERGENCY 73855 [place] 1 1 [facility] DEPARTMEN INC T VISIT MODERATE SEVERITY OFFICE 68832 [facility] OUT[facility] 1 1 T VISIT 15 MINUTES OFFICE 88640 [facility] OUTPAT[facility] 1 1 T VISIT 15 MINUTES OFFICE 55721 [facility] OUTPATIEN 1 1 PAIN T VISIT MEDICIINE 15 PSC MINUTES [facility] [place] - 1 1 [facility] T OFFICE 91515 [facility] OUTPATI[facility] 1 1 T VISIT 15 MINUTES OFFICE 34047 [facility] [place] OUTPATIEN 1 1 PAIN KEYONNA T VISIT MEDICIINE 25 PSC MINUTES OFFICE 14514 [facility] OUTPATI[facility] 1 1 T VISIT 15 MINUTES OFFICE 89880 [facility] OUTPATI[facility] 1 1 T VISIT 15 MINUTES OFFICE 48858 [facility] OUTPAT[facility] 1 1 PAIN [place] T VISIT MEDICIINE 40 PSC MINUTES OFFICE 81386 [facility] [place] OUTPATI[facility] 1 1 PAIN [place] T VISIT MEDICIINE 25 PSC MINUTES OFFICE 65242 [facility] 1 1 T VISIT 15 MINUTES OFFICE 88201 [facility] OUTPAT[facility] 1 1 T VISIT 15 MINUTES OFFICE 19725 [facility] OUTPATI[facility] 1 1 T VISIT 25 MINUTES HOSPITAL [place] - 1 1 [facility] [place] [place] [facility] T OFFICE 80075 [facility] 1 1 T VISIT 15 MINUTES [facility] [place] - 1 1 [facility] T OFFICE 42224 [facility] [place] [facility] [place] [facility] OUTPATI[facility] 1 1 T VISIT 25 MINUTES OFFICE 48386 [facility] OUTPATI[facility] 1 1 T VISIT 25 MINUTES [facility] [place] - 1 1 [facility] T EMERGENCY 32885 [place] 1 1 [facility] T VISIT HIGH/URGE NT SEVERITY
--- OUTSIDE RECORDS SUMMARY | 2017-07-08 11:40 | External Medical Summary Rpt | CCD ---
Author Author , RADHA Organization RADHA Address Unknown Phone [email or web address] Care Team Providers Care Blow Pit Helper Name Role Phone BELL VIOLET, BELL VIOLET Unavailable Unavailable [facility], [facility] Unavailable Unavailable [facility], [facility] Unavailable Unavailable RONALDO STEPHANY, RONALDO Unavailable Unavailable STEPHANY [facility] Unavailable Unavailable MEDICIINE P[facility], [facility] [employer] Unavailable Unavailable INC, [employer] Unavailable Unavailable INC, [employer] [facility] Unavailable Unavailable PSC, [facility] Unavailable Unavailable [place], [facility] Unavailable Unavailable ASSOCIATES, [facility] & Unavailable Unavailable CRITICAL, [facility] VERDUGO KEYONNA, VERDUGO Unavailable Unavailable KEYONNA BESSON, BESSON Unavailable Unavailable [facility] Unavailable Unavailable IMAGING L, [facility] Unavailable Unavailable HOSPITAL, [facility] PHYSICIAN Unavailable Unavailable PRACTICE L, [facility] BREAZEALE GRA, Unavailable Unavailable BREAZEALE GRA BUX ANJ, BUX ANJ Unavailable Unavailable JOHN CELINA IGN, Unavailable Unavailable JOHN CELINA IGN [facility], Unavailable Unavailable [facility] Unavailable Unavailable PHYS PSC, [...] [facility] [place] [facility] [place] ESTRADA G, ESTRADA G Unavailable Unavailable EVERMAN VIOLET, EVERMAN Unavailable Unavailable VIOLET BALL THO, Unavailable Unavailable BALL THO KLEIN ALI, KLEIN Unavailable Unavailable ALI VANCE SCO, VANCE Unavailable Unavailable SCO KATTY JAM, KATTY Unavailable Unavailable JAM GAGUA IRI, GAGUA IRI Unavailable Unavailable FLORY MIGUEL, FLORY Unavailable Unavailable MIGUEL [facility], [facility] LINDER ISIDORO, LINDER ISIDORO Unavailable Unavailable ADONAY RHO, ADONAY Unavailable Unavailable RHO GUNDUMALLA GOP, Unavailable Unavailable GUNDUMALLA GOP OBREGON PALMIRA, OBREGON Unavailable Unavailable [facility] Unavailable Unavailable INC, [facility] Un[facility] Unavailable [facility]PITAL P, [facility] GUILHER[facility], [facility] Unavailable Unavailable LUIS RADHA, LUIS RADHA Unavailable Unavailable JIM KEITH, JIM KEITH Unavailable Unavailable JIM KEITH, JIM KEITH Unavailable Unavailable [facility]OSP [facility] Unavailable Unavailable @CTRL [facility], HOSP MEDICINE SERV @CTRL [facility] Unavailable Unavailable SERVICES O, HOSPITAL [...] III KEITH, Unavailable Unavailable JAIME III KEITH [facility] Unavailable Unavailable [facility], [facility] Unavailable Unavailable [facility], [facility] Unavailable Unavailable MEDICAL G, [facility] MEDICAL G Emy Saxena MD, Unavailable Unavailable [...] LINDA [facility], LABORATORY [facility] Unavailable Unavailable AT [facility] AT [facility] Unavailable Unavailable LABORATO, [facility] Unavailable Unavailable LABORATO, [facility] Sumaya Guan MD, Unavailable Unavailable Sumaya GARLAND MD, VIJAY Unavailable Unavailable DADA MENDOZA ANT, KELLY Unavailable Unavailable ANT [facility] Unavailable Unavailable SERVICES, [facility], Unavailable Unavailable PLLC, [facility], [facility] Unavailable Unavailable OF [place], [facility] ANKIT DENISE, ANKIT Unavailable Unavailable DENISE [facility], Unavailable Unavailable [facility], Unavailable Unavailable [facility] Unavailable Unavailable [facility], [facility] PSC [facility] Unavailable Unavailable PSC, [facility] PSC CIFUENTES LAR, CIFUENTES LAR Unavailable Unavailable [...] IV HEN, Unavailable Unavailable WALLS IV HEN [facility] Unavailable Unavailable PULMONARY, [facility] CHRISTIANO OLGA, CHRISTIANO Unavailable Unavailable [...] Unavailable Unavailable PHYSICIAN SERVI, [facility], Unavailable Unavailable [facility], Unavailable Unavailable [facility] Unavailable Unavailable [facility], [facility] IRVIN RAY, IRVIN Unavailable Unavailable RAY SWINEY, SWINEY Unavailable Unavailable SWINEY PAT, SWINEY Unavailable Unavailable PAT TALANOW ROL, TALANOW Unavailable Unavailable ROL [facility], Unavailable Unavailable [facility] TRUE, TRUE Unavailable Unavailable [facility] Unavailable Unavailable ASSOCIATES, [facility], Unavailable Unavailable [facility] WEHRMAN III OLGA, Unavailable Unavailable WEHRMAN III [...] OBSTRUCTIVE PULMONARY DISEASE UNS 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 06-03-2017 [facility] SINGLE PHYSICIAN THYROID PRACTICE L NODULE G250 ESSENTIAL 06-03-2017 [facility] TREMOR PHYSICIAN PRACTICE L G8929 OTHER 06-03-2017 [facility] CHRONIC PHYSICIAN PAIN PRACTICE L M4802 SPINAL 06-03-2017 [facility] STENOSIS PHYSICIAN CERVICAL PRACTICE L REGION U27488 UNSPECIFIED 06-01-2017 [facility] CHRONIC PHYSICIANS, CONJUNCTIVI PLLC TIS BILATERAL I10 ESSENTIAL 06-01-2017 [facility] PRIMARY [facility]YSICIANS, HYPERTENSIO PLLC N J0100 ACUTE 06-01-2017 [facility] MAXILLARY PHYSICIANS, SINUSITIS PLLC UNSPECIFIED M542 CERVICALGIA 06-01-2017 [facility], PLLC N289 DISORDER OF 05-12-2017 [facility] UNSPECIFIED D6859 OTHER 04-22-2017 [facility] PRIMARY [place] THROM[place] E69839 OTHER LONG 04-22-2017 [facility] HOSPITAL DRUG THERAPY R1012 LEFT UPPER 04-07-2017 [facility] [place] [facility] PAIN R109 UNSPECIFIED 04-07-2017 [facility] ABDOMINAL [facility] N189 CHRONIC 03-17-2017 NEW [facility] [place] DISEASE [facility]INIC PSC UNSPECIFIED N390 URINARY 03-17-2017 NEW TRACT [facility] INFECTION [facility] PSC SITE NOT SPECIFIED R609 EDEMA 03-08-2017 [place] UNSPECIFIED PHYSICIAN PRACTICE L J159 UNSPECIFIED 12-17-2016 [facility] PNEUMONIA PRACTICE L J181 [...] LUNG FIELD C649 MALIGNANT 12-07-2016 NEW NEOPLASM [facility] UNS [facility]IDNEY CLINIC PSC EXCEPT RENL PELVIS G4733 OBSTRUCTIVE 12-07-2016 NEW SLEEP [place] [facility]ULT [facility] PSC PEDIATRIC R351 NOCTURIA 12-07-2016 [facility] Z8546 PERSONAL 12-07-2016 NEW HISTORY [place] MALIGNANT CLINIC PSC NEOPLASM OF PROSTATE Z8551 PERSONAL 12-07-2016 NEW HISTORY [place] MALIGNANT CLINIC PSC NEOPLASM OF BLADDER B38978 PAIN IN 12-01-2016 [place] LEFT MEDICAL SHOULDER IMAGING ASS S35524 OTHER 12-01-2016 [place] CERVICAL MEDICAL DISC IMAGING ASS DEGENERATIO N AT C5-C6 LEVEL N183 CHRONIC 11-22-2016 [facility] DISEASE OF [place] STAGE 3 MODERATE N3943 POST-VOID 11-22-2016 NEPHROLOGY DRIBBLING ASSOCIATES OF [place] N401 BENIGN 11-22-2016 NEPHROLOGY PROSTATIC ASSOCIATES HYPERPLASIA OF [place] LW URINARY TRACT SX E119 TYPE 2 11-17-2016 [facility] DIABETES [facility] P WITHOUT COMPLICATIO NS M791 MYALGIA 11-17-2016 [facility] PH[facility]ICIANS, [facility] X10503 PAIN IN 11-17-2016 [facility] LEFT ARM PHYSICIANS, [facility] Z794 LONG-TERM 11-17-2016 [facility] CURRENT USE [facility] P M7989 OTHER 11-15-2016 [facility] SPECIFIED MEM HOSP SOFT TISSUE INC DISORDERS Z720 TOBACCO USE 11-15-2016 [facility] N26257 PERSONAL 11-15-2016 [place] HISTORY OT MEDICAL VENOUS IMAGING ASS THROMBOSIS& EMBOLISM E039 HYPOTHYROID 10-29-2016 LAB [facility] ISM LINDA UNSPECIFIED HOLDINGS G894 CHRONIC 10-29-2016 [place] PAIN PHYSICIAN SYNDROME PRACTICE L C61 MALIGNANT 10-28-2016 NEW NEOPLASM OF [place] PROSTATE [facility]INIC PSC K219 GASTRO-ESOP 10-15-2016 [facility] H REFLUX MEM [facility]OS[facility] DISEASE INC WITHOUT ESOPHAGITIS M545 LOW BACK 10-15-2016 [facility] PAIN MEM [facility]OS[facility] INC R319 HEMATURIA 10-15-2016 [facility] UNSPECIFIED MEM HOSP INC Z721 10-15-2016 [facility] 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 [facility] CURRENT USE MEM HOSP OF INC ANTICOAGULA NTS Z791 LONG-TERM 10-15-2016 [facility] CURR MEM [facility]OS[facility] NON-STEROID INC AL&ANTI-INF LAMMATORIES L0211 CUTANEOUS 06-23-2016 [facility] ABSCESS OF MEM HOSP NECK INC C641 MALIGNANT 06-01-2016 NEPHROLOGY NEOPLASM RT ASSOCIATES KIDNEY OF [place] EXCEPT RENAL PELVIS C679 MALIGNANT 06-01-2016 NEPHROLOGY NEOPLASM OF ASSOCIATES BLADDER OF [place] UNSPECIFIED R079 CHEST PAIN 03-11-2016 [facility] UNSPECIFIED EAST R9431 ABNORMAL 03-11-2016 [facility] ELECTROCARD [facility] IOGRAM M4722 OT 03-04-2016 [facility] ANA SPONDYLOSIS W/RADICULOP ATHY CERVICAL REGION M4727 OT 03-04-2016 [facility] ANA SPONDYLOSIS W/RADICULOP ATHY LUMBOSACRAL RGN E042 NONTOXIC 02-09-2016 NEUR[facility]IAGNO MULTINODULA STICS INC R GOITER J341 CYST AND 02-09-2016 NEURODIAGNO MUCOCELE OF STICS INC NOSE AND NASAL SINUS J342 DEVIATED 02-09-2016 [facility] NASAL STICS INC SEPTUM R9082 WHITE 02-09-2016 [facility]UR[facility]IAGNO MATTER STICS INC DISEASE UNSPECIFIED W68641 PRESENCE OF 02-03-2016 [place] OTHER HEALTH VASCULAR MEDICAL G IMPLANTS AND GRAFTS D3002 BENIGN 01-28-2016 [facility] NEOPLASM OF REGIONAL LEFT IMAGING L KIDNEY N76735K OTHER [facility] 01-28-2016 [facility] COMP REGIONAL UMBRELLA IMAGING L DEVICE INITIAL ENCNTR J984 OTHER 12-30-2015 [facility] DISORDERS HEALTH OF LUNG [place] R0600 DYSPNEA 12-30-2015 [facility] UNSPECIFIED HEALTH [place] 4019 UNSPECIFIED 05-22-2015 PEPE ABARCA MD HYPERTENSIO CONSULTING N SRV 52744 PRECORDIAL 05-22-2015 [facility] TAMAYO MD CONSULTING SRV 0539 HERPES 05-20-2015 [facility] WITHOUT INC MENTION OF COMPLICATIO N 496 CHRONIC 05-20-2015 [facility] AIRWAY [facility] OBSTRUCTION INC NEC 7823 EDEMA 05-20-2015 [facility] INC 86348 SHORTNESS 05-20-2015 [facility] OF BREATH [facility] HOS[facility] INC 66894 DIAB W/O 05-12-2015 [facility] COMP TYPE N PHYSICIAN II/UNS NOT SERVI STATED UNCNTRL 88204 OBESITY, 05-12-2015 [facility] UNSPECIFIED N PHYSICIAN SERVI 67851 OBSTRUCTIVE 05-12-2015 [facility] CHRONIC N PHYSICIAN BRONCHITIS SERVI WITH EXACERBATIO N 72697 OTHER 05-12-2015 [facility] ABNORMAL N PHYSICIAN GLUCOSE SERVI 37891 HYPERTROPHY 04-24-2015 NEW PROSTATE [place] W/O UR OBST CLINIC PSC & OTH LUTS V1051 PERSONAL 04-24-2015 NEW HISTORY [place] MALIGNANT CLINIC PSC NEOPLASM BLADDER 185 MALIGNANT 04-10-2015 NEW NEOPLASM OF [place] PROSTATE CLINIC PSC 1889 MALIGNANT 04-10-2015 NEW NEOPLASM OF [place] BLADDER CLINIC PSC PART UNSPECIFIED 1890 MALIGNANT 04-10-2015 NEW NEOPLASM OF [place] [facility] PSC EXCEPT PELVIS 88230 HYPERTROPHY 04-10-2015 NEW PROSTATE [place] W/UR OBST & CLINIC PSC OTH LUTS 7226 DEGENERATIO 04-01-2015 [facility] N TECHNOLOGIE INTERVERTEB S INC RAL DISC SITE UNSPEC 13780 POSTLAMINEC 04-01-2015 [facility]N [facility] SYNDROME INC CERVICAL REGION V571 OTHER 04-01-2015 [facility] PHYSICAL [facility] THERAPY INC 62802 DEGEN 03-24-2015 VIJAY GARLAND LUMBAR/LUMB OSACRAL INTERVERTEB RAL DISC 94871 POSTLAMINEC 03-24-2015 VIJAY HOBSON MD SYNDROME LUMBAR REGION 7244 THORACIC/ELEONORA 03-24-2015 VIJAY BUSTOS MD NEURITIS/RA DICULITIS UNSPEC 7231 CERVICALGIA 02-24-2015 [facility] 7840 HEADACHE 02-24-2015 [facility] 7224 DEGENERATIO 01-16-2015 NEURODIAGNO N OF STICS INC CERVICAL INTERVERTEB RAL DISC 64843 MIGRAINE 12-03-2014 [facility] W/O HOSPITAL INTRACTBL W/STATUS MIGRAINOSUS 4010 ESSENTIAL 12-03-2014 [facility] N, MALIGNANT 5849 ACUTE 12-03-2014 [facility] FAILURE UNSPECIFIED 7820 DISTURBANCE 12-03-2014 [facility] SENSATION 52740 NAUSEA WITH 12-03-2014 [facility] V1255 PERSONAL 12-03-2014 [facility] HISTORY OF HOSPITAL PULMONARY EMBOLISM V4573 ACQUIRED 12-03-2014 [facility] KIDNEY V1046 PERSONAL 11-26-2014 NEW HISTORY [place] MALIGNANT CLINIC PSC NEOPLASM PROSTATE V1052 PERSONAL 11-26-2014 NEW HISTORY OF [facility] MALIGNANT CLINIC PSC NEOPLASM OF KIDNEY 0010 CHOLERA DUE 10-28-2014 [facility] [facility] LABORATO 305.1 305.1 10-12-2013 [facility] TOBACCO USE [facility] DISORDER [facility] 401.9 401.9 10-12-2013 [facility] 491.22 491.22 10-12-2013 [facility] OBSTRUCTIVE [facility] CHRONIC [facility] BRONCHITIS WITH ACUTE BRONCHITIS 466.0 466.0 ACUTE 01-31-2013 [facility] BRONCHITIS [facility] V12.52 V12.52 01-31-2013 [facility] HX-THROMBOP [facility] HLEBITIS [facility] 250.00 250.00 DIAB 01-13-2013 [facility] [place], TYPE Hospital II OR UNSPEC TYPE, NOT UNCNTRLD 601.0 601.0 ACUTE 01-13-2013 [facility] PROSTATITIS [facility] 7242 LUMBAGO 08-25-2012 [facility] 74036 CHEST PAIN 08-25-2012 [facility] UNSPECIFIED V5861 LONG-TERM 08-25-2012 [facility] (CURRENT) PHYSICIANS USE OF LA ANTICOAGULA NTS 65380 OBSTRUCTIVE 08-09-2012 [facility] SLEEP HOME APNEA MEDICAL EQUIPME 5119 UNSPECIFIED 08-09-2012 [facility] PLEURAL HOME EFFUSION MEDICAL EQUIPME 2270 BENIGN 08-04-2012 JIM KEITH NEOPLASM OF ADRENAL GLAND 28044 HEMATURIA 08-04-2012 JIM KEITH UNSPECIFIED 6822 CELLULITIS 08-04-2012 [facility] AND ABSCESS [facility]K [facility]OS[facility] 7078 CHRONIC 08-04-2012 [facility] ULCER OF [facility] OTHER HOSP SPECIFIED SITE 18650 OTHER 08-04-2012 [facility] POSTOPERATI [facility] VE HOSP INFECTION NEC 17867 DIAB W/O 08-03-2012 [facility] COMP TYPE I HOME [JUV] NOT MEDICAL STATED EQUIPME UNCNTRL 26226 OTHER 07-27-2012 [facility] CHRONIC PAIN 96865 INTESTINAL 06-30-2012 [facility] DUE [facility] CLOSTRIDIUM DIFFICILE 5589 OTH&UNSPEC 06-30-2012 [facility] NONINFECTIO MEM HOSP US INC GASTROENTER ITIS&COLITI S 5699 UNSPECIFIED 06-30-2012 [place] DISORDER MEDICAL OF IMAGING ASS INTESTINE 5920 CALCULUS OF 06-30-2012 [place] [facility] 87718 NAUSEA 06-30-2012 [facility]ONE [facility] 65942 DIARRHEA 06-30-2012 [facility] 7891 HEPATOMEGAL 06-30-2012 [place] Y [facility]ICAL [facility] 52647 OTHER 06-27-2012 [facility] MALAISE AND PHYSICIANS FATIGUE LA 2859 UNSPECIFIED 06-16-2012 [facility] ANEMIA 586 UNSPECIFIED 06-16-2012 [facility] RENAL FAILURE V0481 NEED 06-16-2012 [facility] PROPHYLACTI C VACCINATION &INOCULATIO N FLU 8795 OPEN WOUND 06-14-2012 [facility] OF THERAPEUTIC ABDOMINAL SER INC WALL LATERAL COMPLICATED 92213 NON-HEALING 06-14-2012 [facility] SURGICAL THERAPEUTIC WOUND NEC SER INC 61481 DIAB W/O 06-11-2012 [facility] MENTION N EMERGENCY COMP TYPE PHYS II/UNS TYPE UNCNTRL 6829 CELLULITIS 06-11-2012 [facility] [place] AND ABSCESS RADIOLOGY OF UNSPECIFIED SITE 9642 POISONING 06-11-2012 [place] BY INPATIENT ANTICOAGULA MEDICINE NTS 5939 UNSPECIFIED 06-02-2012 [facility] DISORDER OF KIDNEY AND URETER 68163 ACUTE 05-25-2012 [facility]MERLY [facility] RESPIRATORY [facility] FAILURE PULMONARY 12329 OTHER 05-22-2012 [facility] [place] NONSPECIFIC RADIOLOGY ABNORMAL FINDING OF LUNG FIELD 4264 RIGHT 05-21-2012 NEW BUNDLE [place] BLOCK 2762 ACIDOSIS 05-20-2012 [place] [facility] PULMONARY 4011 ESSENTIAL 05-20-2012 [place] HYPERTENSIO INPATIENT N, BENIGN MEDICINE 07480 FEVER 05-20-2012 [facility] UNSPECIFIED [facility] PULMONARY 5180 PULMONARY 05-19-2012 [facility] [place] COLLAPSE RADIOLOGY 48017 SEPSIS 05-19-2012 [facility] PULMONARY 76585 OTHER ACUTE 05-18-2012 [facility] POSTOPERATI [facility] VE PAIN V5881 FITTING AND 05-18-2012 [facility] [place] ADJUSTMENT RADIOLOGY OF VASCULAR CATHETER 0389 UNSPECIFIED 05-17-2012 [facility] SEPTICEMIA [facility] 65265 ENCEPHALOPA 05-17-2012 [facility] UNSPECIFIED 56821 OTHER 05-17-2012 NEW SPECIFIED [place] CARDIAC CLINIC [facility] DYSRHYTHMIA S 5845 ACUTE 05-17-2012 [facility] KIDNEY HOSPITAL FAILURE W/LESION TUBULAR NECROSIS 5932 ACQUIRED 05-17-2012 [facility] CYST OF HOSPITAL KIDNEY 64693 SEVERE 05-17-2012 [facility] HOSPITAL 9975 URINARY 05-17-2012 [facility] COMPLICATIO [facility] NS NEC 5969 UNSPECIFIED 05-16-2012 NEW DISORDER [facility] OF BLADDER CLINIC PSC V1251 PERSONAL 05-16-2012 [facility] HISTORY, THO VENOUS THROMBOSIS AND EMBOLISM V4589 OTHER 05-16-2012 [facility] POSTSURGICA THO L STATUS OTHER V7283 OTHER 05-16-2012 [facility] [place] SPECIFIED RADIOLOGY PRE-OPERATI VE EXAMINATION V7284 UNSPECIFIED 05-16-2012 NEW [place] PRE-OPERATI CLINIC [facility] VE EXAMINATION 86128 NEOPLASM OF 04-24-2012 PODIATRIC UNCERTAIN FOOT & BEHAVIOR OF ANKLE SPECI KIDNEY&URET ER 1888 MALIGNANT 04-13-2012 NEW NEOPLASM [facility] OTHER CLINIC PSC SPECIFIED SITES BLADDER 76833 OTHER 04-06-2012 [facility] PULMONARY EMBOLISM AND INFARCTION 73492 AC JOE 04-06-2012 [facility] [employer] THROMB HOLDINGS UNSPEC DEEP VES LOWER EXT V5869 LONG-TERM 04-06-2012 [facility] (CURRENT) [facility] USE OF HOSPITAL OTHER MEDICATIONS V711 OBSERVATION 04-06-2012 [facility] [place] FOR RADIOLOGY SUSPECTED MALIGNANT NEOPLASM 4168 OTHER 04-03-2012 [facility] CHRONIC [facility] PULMONARY HOSP HEART DISEASES 4280 CONGESTIVE 04-03-2012 [facility] HEART CARDIOLOGY FAILURE AT CENT UNSPECIFIED 4293 CARDIOMEGAL 04-03-2012 [facility] Y [facility] HOSP 4539 EMBOLISM 04-03-2012 [facility] AND ONCOLOGY THROMBOSIS ASSOCIATES OF UNSPECIFIED SITE 90149 OTHER 03-29-2012 [facility] DYSPNEA AND EMERGENCY [place] [address] ABNORMAL 03-29-2012 [facility] COAGULATION [facility] PROFILE HOSP 7245 UNSPECIFIED 03-20-2012 [facility] 7295 PAIN IN 03-20-2012 [facility] MEDICAL TISSUES OF GROUP, PLLC LIMB 57971 ABDOMINAL 03-20-2012 [facility] [place] PAIN OTHER RADIOLOGY SPECIFIED SITE 5859 CHRONIC 03-14-2012 HOSP KIDNEY MEDICINE DISEASE SERV @CTRL UNSPECIFIED BAP 60522 HTN CKD UNS 03-08-2012 [facility] W/CKD [facility] STAGE I HOSP THRU STAGE IV/UNS 4162 CHRONIC 03-08-2012 [facility] PULMONARY PULMONARY & EMBOLISM CRITICAL 4242 TRICUSPID 03-08-2012 [place] [facility] DISORDERS AT [facility] SPEC NONRHEUMATI C 24446 CHRN VNUS 03-08-2012 [facility] EMB & SURGICAL THROMB DEEP ASSOCIATES VES PROX LOWR EXTREM 30682 OBSTRUCTIVE 03-08-2012 [facility] CHRONIC PULMONARY & BRONCHITIS CRITICAL WITHOUT EXACERBAT 20671 CHRONIC 03-08-2012 [facility] RESPIRATORY [facility] FAILURE HOSP 60957 HYPOXEMIA 03-08-2012 [facility] PULMONARY & CRITICAL V462 DEPENDENCE 03-08-2012 [facility] ON MACHINE [facility] FOR HOSP SUPPLEMENTA L OXYGEN V8541 BODY MASS 03-08-2012 [facility] INDEX [facility] 40.0-44.9 HOSP ADULT 486 PNEUMONIA, 03-02-2012 [facility] UNSPECIFIED SERVICES 5183 PULMONARY 03-02-2012 [place] EOSINOPHILI MEDICAL A IMAGING ASS 55393 OTHER 03-02-2012 [place] DISEASES OF MEDICAL LUNG NOT IMAGING ASS ELSEWHERE CLASSIFIED 7969 OTHER 03-02-2012 LABORATORY NONSPECIFIC [facility] OF ABNORMAL LINDA H FINDING 7238 OTHER 02-10-2012 [facility] SYNDROMES AFFECTING CERVICAL REGION 4619 ACUTE 02-09-2012 [facility] SINUSITIS, EMERGENCY UNSPECIFIED SERVICES 7804 DIZZINESS 01-29-2012 NEURODIAGNO AND STICPSC GIDDINESS 02783 OTHER 01-28-2012 [place] DISEASES OF MEDICAL NASAL IMAGING ASS CAVITY AND SINUSES 7842 SWELLING 01-28-2012 [place] MASS OR MEDICAL LUMP IN IMAGING ASS HEAD AND NECK 07056 ATRIAL 01-11-2012 [facility] 4519 PHLEBITIS&T 01-10-2012 [facility] CARDIOLOGY ITIS OF CLINIC UNSPECIFIED SITE 4536 VENOUS EMBO 01-10-2012 [facility] & TH[facility]B [facility] VES LOWR EXTREM 25347 UNSPECIFIED 12-28-2011 [facility] DIASTOLIC [facility] HEART [facility]OSPITAL FAILURE 7850 UNSPECIFIED 12-28-2011 [facility] TACHYCARDIA SERVICES 3320 PARALYSIS 12-17-2011 [facility] AGITANS 2724 OTHER AND 11-30-2011 [facility] UNSPECIFIED [facility] HOSP HYPERLIPIDE GONZÁLEZ 47766 DEHYDRATION 11-30-2011 [facility] 490 BRONCHITIS 11-30-2011 [facility] NOT [facility] SPECIFIED HOSP ACUTE OR CHRONIC V1089 PERSONAL 11-30-2011 [facility] HISTORY [facility] MALIGNANT HOSP NEOPLASM OTHER SITE V5866 LONG-TERM 11-30-2011 [facility] USE OF [facility] 462 ACUTE 11-29-2011 [facility] PHARYNGITIS 4871 INFLUENZA 11-29-2011 [facility] WITH OTHER RESPIRATORY MANIFESTATI ONS 97203 MUSCLE 11-29-2011 [facility] WEAKNESS EMERGENCY (GENERALIZE SERVICES D) 4660 ACUTE 11-18-2011 [facility] BRONCHITIS 83565 ASTHMA, 11-08-2011 [facility] UNSPECIFIED EMERGENCY , SERVICES UNSPECIFIED STATUS V1559 PERSONAL 09-24-2011 [facility] HISTORY OF COMMUN[facility] OTHER HOSPITAL INJURY 02650 UNSPECIFIED 09-19-2011 [facility] RETENTION OF URINE 3384 CHRONIC 07-29-2011 [facility] SYNDROME MEDICIINE PSC 3538 OTHER NERVE 07-29-2011 [facility] ROOT AND PAIN PLEXUS MEDICIINE DISORDERS PSC 7210 CERVICAL 07-29-2011 [facility] SPONDYLOSIS PAIN WITHOUT MEDICIINE MYELOPATHY PSC 7232 CERVICOCRAN 07-29-2011 [facility] IAL PAIN SYNDROME MEDICIINE PSC 2449 UNSPECIFIED 07-26-2011 [facility] HYPOTHYROID [facility] 5990 URINARY 07-26-2011 [facility] SITE NOT SPECIFIED 7241 PAIN IN 07-26-2011 [facility] [place] THORACIC RADIOLOGY SPINE 30996 OTHER CHEST 07-26-2011 [facility] 7810 ABNORMAL 07-20-2011 [facility] INVOLUNTARY MOVEMENTS 7213 LUMBOSACRAL 04-28-2011 [facility] SPONDYLOSIS MEDICIINE WITHOUT PSC MYELOPATHY 7220 DISPLCMT 04-28-2011 [facility] CERV PAIN INTERVERT MEDICIINE DISC PSC WITHOUT MYELOPATHY 7246 DISORDERS 04-28-2011 [facility] OF [place] PAIN MEDICIINE PSC 66059 ABDOMINAL 03-16-2011 NEURODIAGNO PAIN, STICPS GENERALIZED V7644 SPECIAL 03-04-2011 [facility] SCREENING [facility] HOLDING NEOPLASM OF PROSTATE 24648 ABDOMINAL 02-26-2011 [facility] PAIN, UNSPECIFIED SITE 56814 ABDOMINAL 02-26-2011 [facility] QUADRANT 15874 ABDOMINAL 02-26-2011 [facility] 8628 INJR MX&UNS 02-26-2011 [facility] INTRATHR [facility] ORGN W/O HOSPITAL OPN WND IN CAV 9269 CRUSHING 02-26-2011 [facility] INJURY OF [facility] UNSPECIFIED HOSPITAL SITE OF TRUNK 6029 UNSPECIFIED 02-18-2011 [facility] DISORDER OF PROSTATE 1560 MALIGNANT 02-17-2011 [facility] NEOPLASM OF [facility] GALLBLADDER 1980 SECONDARY 02-17-2011 [facility] NEOPLASM OF HOSPITAL KIDNEY 7862 COUGH 02-17-2011 [facility] Allergies, Adverse Reactions, Alerts Type Allergy to [...] 0 30 30 EA 24 WE Ac IN 25 -0 -[address] [...] 017 K/mm3 ed monocyt 21:10 e count Snyder % = 6.9 % 1.7-9.3 complet 017 [...] [facility] DEL PORT 7 85%/>02 [facility] AT [facility] FLW RATE PRTBLE [id number] [facility] ABLECARE GASEOUS 7 O2 SYS RENT; FLWMTR HUMIDFR&M ASK PRTBLE E0431 [facility] GASEOUS 7 O2 SYS RENT; FLWMTR HUMIDFR&M ASK O2 [facility] 1 E1390 [facility] ABLECARE DEL PORT 7 85%/>02 [place] [address] [place] TRUE ABDOMEN & 7 MEDICAL PELVIS SERV W/O FOUNDATIO CONTRAST N MATERIAL PROTHROMB 11650 [facility] IN TIME 7 LINDA LINDA CONEMAUGH [facility] HOLD[facility] DRUG TEST 15956 YNES QUICK PRSMV 7 [facility] CHEMISTRY ANALYZERS O2 CONC 1 E1390 [facility] DEL PORT 7 85%/>02 [facility] AT [facility] FLW RATE PRTBLE E0431 [facility] GASEOUS 7 O2 SYS RENT; FLWMTR H[place]FR&[place] [address] [facility] [place] SCALF ABDOMEN & 7 RADIOLOGY PELVIS W/O CONTRAST MATERIAL URNLS DIP 51361 STEPHAINE SILVA [address] [place] [address] STICK/TAB CLINIC LET RGNT PSC AUTO W/O MICROSCOP Y CULTURE 51575 [facility] BACTERIAL 7 CLINIC CLINIC LABORATO LABORATO QUANTTATI VE COLONY COUNT URINE O2 CONC 1 E1390 [facility] DEL PORT 7 85%/>02 CONC AT [facility] FLW RATE PRTBLE E0431 [facility] GASEOUS 7 O2 SYS RENT; FLWMTR HUMIDFR&M ASK DRUG TST G0483 [facility] LAB [facility] DEFINITV [address] ID HOLDINGS HOLDINGS METH P DAY 22/MORE DR CL DRUG TEST 48069 [facility] PRSMV 7 LINDA LINDA INSTRMNT [facility]INGS HOLDINGS CHEMISTRY ANALYZERS PROTHROMB 71255 [facility] IN TIME 7 LINDA LINDA [facility] HOLDINGS COLLECTIO 46491 YNES Ma VENOUS 7 PHYSICIAN BLOOD PRACTICE VENIPUNCT L URE PROTHROMB 46086 [facility] IN TIME 7 LINDA LINDA [facility] HOLDINGS INITIAL 00597 [facility] 7 MEDICINE CARE/DAY [place] [address] [place] [address] [facility] [place] SCALF HEAD/BRAI 7 RADIOLOGY N W/O CONTRAST MATERIAL RADIOLOGI 75480 [facility] SWINEY C 7 JEROD EXAMINATI EMERGENCY ON CHEST PHYS SINGLE VIEW FRONTAL ECG 99381 [facility] SWINEY ROUTINE 7 JEROD ECG EMERGENCY W/LEAST PHYS 12 LDS I&R ONLY RADEX 14888 [place] [facility] SPINE 7 MEDICAL CERVICAL IMAGING 2 OR 3 ASS VIEWS RADEX 68922 [place] [facility] SHOULDER 7 MEDICAL COMPLETE IMAGING MINIMUM 2 ASS VIEWS ECG 30594 [facility] VERDUGO ROUTINE 7 [facility] W/LEAST P 12 LDS I&R ONLY PROTHROMB 68819 LAB [facility] LAB [facility] IN TIME 7 [facility] HOLD[facility] DUP-SCAN 23565 [place] [facility] XTR VEINS 7 MEDICAL IMAGING [place] ASS L/LIMITED STUDY PROTHROMB 21489 LAB [facility] IN TIME 7 [facility] [place] [address] LAB [facility] LAB [facility] THYROXINE 7 [facility] TOTAL HOLDINGS HOLDINGS COLLECTIO 91636 YNES TATE N VENOUS 7 PHYSICIAN BLO[place] [address] LAB [facility] THYROID 7 [facility] STIMULATI HOLDINGS HOLDINGS NG HORMONE TSH URNLS DIP 41197 STEPHANIE SILVA 7 [place] STICK/TAB CLINIC LET RGNT PSC AUTO W/O MICROSCOP Y URNLS DIP [address] 7 [facility] STICK/TAB INC INC LET REAGENT AUTO MICROSCOP Y BLOOD [address] COUNT 7 [facility] COMPLETE INC INC AUTO&AUTO DIFRNTL WBC COMPREHEN [address] SIVE 7 [facility] [place] [address] LIPASE 7 [place] [address] ABDOMEN & 7 [facility] PELVIS INC INC W/O CONTRAST MATERIAL PROTHROMB [address] IN TIME 7 [facility] INC INC CYSTOURET [address] [facility] HROSCOPY 6 [facility] PSC PSC THERAPEUT 94981 [place] PX 1/> 6 [facility] EACH 15 MIN EXERCISES E-STIM G0283 [place] 1/> AREAS 6 [facility] WND CARE PART TX PLAN E-STIM G0283 [place] 1/> AREAS 6 [facility] WND CARE PART TX PLAN THERAPEUT 42263 [place] [facility] 1/> 6 [facility] EACH 15 MIN EXERCISES THERAPEUT 70977 [place] P[place] 1/> 6 [facility] EACH 15 MIN EXERCISES E-STIM G0283 [place] 1/> AREAS 6 [facility] WND CARE PART TX PLAN E-STIM G0283 [place] 1/> AREAS 6 [facility] WND CARE PART TX PLAN PHYSICAL 32867 [place] THERAPY 6 [facility] [place] [address] THYROID 6 [facility] STIMULATI INC INC NG HORMONE TSH THYROID [address] HORM 6 [facility] UPTK/THYR INC INC OID HORMONE BINDING RATIO BLOOD [address] COUNT 6 [facility] COMPLETE INC INC AUTO&AUTO DIFRNTL WBC COLLECTIO [address] N VENOUS 6 [facility] [place] [address] THYROXINE 6 [facility] TOTAL INC INC COMPREHEN [address] SIVE 6 [facility] METABOLIC INC INC PANEL DRAINAGE [id number] [facility] OF NECK 6 [facility] SKIN INC INC EXTERNAL BLOOD 61323 [facility] COUNT 6 N N COMPLETE COMMUNTIY COMMUNTIY AUTO&AUTO HOSPITA HOSPITA DIFRNTL WBC THROMBOPL 36816 [facility] ASTIN 6 N N TIME COMMUNTIY COMMUNTIY PARTIAL HOSPITA HOSPITA PLASMA/WH OLE BLOOD US SOFT 89198 [facility] TISSUE 6 N N HEAD & COMMUNTIY COMMUNTIY NECK REAL HOSPITA HOSPITA TIME IMGE DOCM COLLECTIO 00901 [facility] N VENOUS 6 N N BLOOD COMMUNTIY COMMUNTIY VENIPUNCT HOSPITA HOSPITA URE PROTHROMB 72207 [facility] IN TIME 6 N [place] [address] [facility] MAXILLOFA 6 N N CIAL W/O COMMUNTIY COMMUNTIY CONTRAST HOSPITA HOSPITA MATERIAL INJECTION [id number] [place].[address] MG [address] [facility] TST [address] [place] [address] XERS&/OR RX CONT ECG TRCG ONLY TECHNETIU A9502 [facility] TC-99M [address] [place] [address] TETROFOSM IN DX PER STUDY DOSE MYOCARDIA 03437 [facility] SPECT [address] [place] [address] MULTIPLE STUDIES MRI ORBIT 47200 NE[facility]IAG [facility] [place] FACE & 6 NOSTICS NECK W/O INC & W/CONTRAS T MATRL US SOFT 23916 NEURODIAG [place] TISSUE 6 NOSTICS HEAD & [place] [address] [facility] & 6 REGIONAL LD IV ALL PELVIS IMAGING W/O L CONTRST 1/> B[place] [address] MORMONISM MORMONISM TRACT 6 [facility] W/WO DELAYED IMAGES W/KUB RADIOLOGI 62586 MORMONISM MORMONISM C EXAM 6 [facility] CHEST 2 [facility] VIEWS FRONTAL&L ATERAL PULMONARY 16750 MORMONISM MORMONISM 6 [facility] ON & PERFUSION IMAGING TECHNETIU A9540 MORMONISM MORMONISM M TC-99M 6 [facility] MAA DX [facility] STDY DOSE UP TO 10 MCI XENON A9558 MORMONISM MORMONISM XE-133 6 [facility] DIAGNOSTI C PER 10 MILLICURI ES NEBULIZER E0570 [facility] WITH 6 COMPRESSO R ECG 46542 PEPE NEVAREZ NEVAREZ PEPE ROUTINE 5 ECG CONSULTIN W/LEAST G SRV 12 LDS W/I&R ECHO 69048 PEPE NEVAREZ NEVAREZ PEPE TTHRC R-T 5 2D CONSULTIN W/WOM-MOD G SRV E COMPL SPEC&COLR D BLOOD [address] COUNT 5 [facility] COMPLETE INC INC AUTO&AUTO DIFRNTL WBC COMPREHEN [address] SIVE 5 [facility] METABOLIC INC INC PANEL PROTHROMB [address] IN TIME 5 [facility] INC INC ECG [address] ROUTINE 5 [facility] ECG INC INC W/LEAST 12 LDS TRCG ONLY W/O I&R CREATINE [address] KINASE 5 [facility] TOTAL INC INC RADIOLOGI [address] C EXAM 5 [facility] CHEST 2 INC INC VIEWS FRONTAL&L ATERAL RADIOLOGI [address] C 5 [facility] EXAMINATI INC INC [place] [address] TROPONIN 5 [facility] QUANTITAT INC INC JOANIE NATRIURET [address] IC 5 [facility] PEPTIDE INC INC CREATINE [address] KINASE MB 5 [facility] FRACTION INC INC [facility] 76217 [facility] 5 JEROD PATRICK DAY PHYSICIAN MANAGEMEN SERVI T > 30 MIN SBSQ 07518 [facility] 5 JEROD CELINA IGN CARE/DAY PHYSICIAN 25 SERVI MINUTES SBSQ 96259 [facility] 5 JEROD CELINA IGN CARE/DAY PHYSICIAN 25 SERVI MINUTES ECG 92843 [facility] 5 JEROD A GOP ECG PHYSICIAN W/LEAST SERVI 12 LDS I&R ONLY INITIAL 17355 [facility] 5 JEROD A GOP CARE/DAY PHYSICIAN 70 SERVI MINUTES CYSTOURET 22513 STEPHANIE SILVA HROSCOPY 5 [facility] PSC PHYSICAL [address] THERAPY 5 [facility] EVALUATIO INC INC N APPL [address] MODALITY 5 [facility] 1/> AREAS INC INC ELEC STIMJ UNATTENDE D APPLICATI [address] ON 5 [facility] MODALITY INC INC 1/> AREAS HOT/COLD PACKS APPL [address] MODALITY 5 [facility] 1/> AREAS INC INC ULTRASOUN D EA 15 MIN URNLS DIP 48307 STEPHANIE RICARDO 5 [place] JUS STICK/TAB CLINIC LET RGNT PSC AUTO W/O MICROSCOP Y APPL [address] MODALITY 5 [facility] 1/> AREAS INC INC ULTRASOUN D EA [address]ATI [address] ON 5 [facility] MODALITY INC INC 1/> AREAS HOT/COLD PACKS APPL [address] MODALITY 5 [facility] 1/> AREAS INC INC ELEC STIMJ UNATTENDE D THERAPEUT [address] IC PX 1/> 5 [facility] AREAS INC INC EACH 15 MIN EXERCISES THERAPEUT [address] IC PX 1/> 5 [facility] AREAS INC INC EACH 15 MIN EXERCISES APPL [address] MODALITY 5 [facility] 1/> AREAS INC INC ELEC STIMJ UNATTENDE D APPLICATI [address] ON 5 [facility] MODALITY INC INC 1/> AREAS HOT/COLD PACKS APPL [address] MODALITY 5 [facility] 1/> AREAS INC INC ULTRASOUN D EA 15 MIN AP[address]ICATI [address] ON 5 [facility] MODALITY INC INC 1/> AREAS HOT/COLD PACKS APPL [address] MODALITY 5 [facility] 1/> AREAS INC INC ELEC STIMJ UNATTENDE D LUMB L0627 [facility] 5 TECHNOLOG TECHNOLOG SAGIT IES INC IES INC CNTRL RIGID A&P PANEL PREFAB THERAPEUT [address] IC PX 1/> 5 [facility] AREAS INC INC EACH 15 MIN EXERCISES ORTHOTIC [address] MGMT&IKE 5 [facility] [place] UXTR INC INC LXTR&/TRN K EA [address] IC PX 1/> 5 [facility] AREAS INC INC EACH 15 MIN EXERCISES APPL [address] MODALITY 5 [facility] 1/> AREAS INC INC ELEC STIMJ UNATTENDE D APPL [address] MODALITY 5 [facility] 1/> AREAS INC INC ULTRASOUN D EA 15 MIN APPL [address] MODALITY 5 [facility] 1/> AREAS INC INC ULTRASOUN D EA 15 MIN APPL [address] MODALITY 5 [facility] 1/> AREAS INC INC ELEC STIMJ UNATTENDE D THERAPEUT [address] IC PX 1/> 5 [facility] AREAS INC INC EACH 15 MIN EXERCISES THERAPEUT [address] IC PX 1/> 5 [facility] AREAS INC INC EACH 15 MIN EXERCISES APPL [address] MODALITY 5 [facility] 1/> AREAS INC INC ELEC STIMJ UNATTENDE D APPL [address] MODALITY 5 [facility] 1/> AREAS INC INC ULTRASOUN D EA 15 MIN [address]ATI [address] ON 5 [facility] MODALITY INC INC 1/> AREAS HOT/COLD PACKS APPLICATI [address] ON 5 [facility] MODALITY INC INC 1/> AREAS HOT/COLD PACKS APPL [address] MODALITY 5 [facility] 1/> AREAS INC INC ULTRASOUN D EA 15 MIN APPL [address] MODALITY 5 [facility] 1/> AREAS INC INC ELEC STIMJ UNATTENDE D THERAPEUT [address] IC PX 1/> 5 [facility] AREAS INC INC EACH 15 MIN EXERCISES THERAPEUT [address] IC PX 1/> 5 [facility] AREAS INC INC EACH 15 MIN EXERCISES APPL [address] MODALITY 5 [facility] 1/> AREAS INC INC ELEC STIMJ UNATTENDE D APPL [address] MODALITY 5 [facility] 1/> AREAS INC INC ULTRASOUN D EA 15 MIN APPL [address] MODALITY 5 [facility] 1/> AREAS INC INC ULTRASOUN D EA 15 MIN APPL [address] MODALITY 5 [facility] 1/> AREAS INC INC ELEC STIMJ UNATTENDE D THERAPEUT [address] IC PX 1/> 5 [facility] AREAS INC INC EACH 15 MIN EXERCISES THERAPEUT [address] IC PX 1/> 5 [facility] AREAS INC INC EACH 15 MIN EXERCISES APPL [address] MODALITY 5 [facility] 1/> AREAS INC INC ELEC STIMJ UNATTENDE D APPL [address] MODALITY 5 [facility] 1/> AREAS INC INC ULTRASOUN D EA 15 [address]PL [address] MODALITY 5 [facility] 1/> AREAS INC INC ULTRASOUN D EA 15 MIN APPLICATI [address] ON 5 [facility] MODALITY INC INC 1/> AREAS HOT/COLD PACKS APPL [address] MODALITY 5 [facility] 1/> AREAS INC INC ELEC STIMJ UNATTENDE D THERAPEUT [address] IC PX 1/> 5 [facility] AREAS INC INC EACH 15 MIN EXERCISES THERAPEUT [address] IC PX 1/> 5 [facility] AREAS INC INC EACH 15 MIN EXERCISES APPL [address] MODALITY 5 [facility] 1/> AREAS INC INC ELEC STIMJ UNATTENDE D APPL [address] MODALITY 5 [facility] 1/> AREAS INC INC ULTRASOUN D EA 15 MIN APPL [address] MODALITY 5 [facility] 1/> AREAS INC INC ULTRASOUN D EA 15 MIN APPL [address] MODALITY 5 [facility] 1/> AREAS INC INC ELEC STIMJ UNATTENDE D THERAPEUT [address] IC PX 1/> 5 [facility] AREAS INC INC EACH 15 MIN EXERCISES MRI 56668 NEURODIAG OB[place]ON SPINAL 5 NOSTICS [place] CANAL INC CERVICAL W/O CONTRAST MATRL APPL [address] MODALITY 5 [facility] 1/> AREAS INC INC ULTRASOUN D EA 15 MIN APPL [address] MODALITY 5 [facility] 1/> AREAS INC INC ELEC STIMJ UNATTENDE D THERAPEUT [address] IC PX 1/> 5 [facility] AREAS INC INC EACH 15 MIN EXERCISES THERAPEUT [address] IC PX 1/> 5 [facility] AREAS INC INC EACH 15 MIN EXERCISES APPL [address] MODALITY 5 [facility] 1/> AREAS INC INC ELEC STIMJ UNATTENDE D APPL [address] MODALITY 5 [facility] 1/> AREAS INC INC ULTRASOUN D EA 15 MIN APPLICATI [address] ON 5 [facility] MODALITY INC INC 1/> AREAS HOT/COLD PACKS APPL [address] MODALITY 5 [facility] 1/> AREAS INC INC ULTRASOUN D EA 15 MIN [address]APEUT [address] IC PX 1/> 5 [facility] AREAS INC INC EACH 15 MIN EXERCISES MANUAL [address] THERAPY 5 [facility] TQS 1/> INC INC REGIONS EACH 15 MINUTES MANUAL [address] THERAPY 5 [facility] TQS 1/> INC INC REGIONS EACH 15 MINUTES THERAPEUT 32694 ARIANA ARIANA IC PX 1/> 5 [facility] AREAS INC INC EACH 15 MIN EXERCISES APPL [address] MODALITY 5 [facility] 1/> AREAS INC INC ULTRASOUN D EA 15 MIN AP[address]ICATI [address] ON 5 [facility] MODALITY INC INC 1/> AREAS HOT/COLD PACKS APPL [address] MODALITY 5 [facility] 1/> AREAS INC INC ELEC STIMJ UNATTENDE D APPL [address] MODALITY 5 [facility] 1/> AREAS INC INC ELEC STIMJ UNATTENDE D APPLICATI [address] ON 5 [facility] MODALITY INC INC 1/> AREAS HOT/COLD PACKS APPL [address] MODALITY 5 [facility] 1/> AREAS INC INC ULTRASOUN D EA 15 MIN [address]APEUT [address] IC PX 1/> 5 [facility] AREAS INC INC EACH 15 MIN EXERCISES THERAPEUT [address] IC PX 1/> 5 [facility] AREAS INC INC EACH 15 MIN EXERCISES PHYSICAL [address] THERAPY 5 [facility] EVALUATIO INC INC N APPL [address] MODALITY 5 [facility] 1/> AREAS INC INC ELEC STIMJ UNATTENDE D CYSTOURET [address] [facility] HROSCOPY 5 [facility] [place] [address] STEPHANIE SILVA PROSTATE 5 [facility]IFIC [facility]IN[facility] ANTIGEN PSC TOTAL COLLECTIO 34514 STEPHANIE SILVA N VENOUS 5 [place] [facility] VENIPUNCT PSC URE CUL BACT 92858 [facility] XCPT 5 CLINIC CLINIC URINE LABORATO LABORATO BLOOD/STO OL AEROBIC ISOL URNLS DIP 24275 STEPHANIE SILVA 5 [place] JUS STICK/TAB CLINIC LET RGNT PSC AUTO W/O MICROSCOP Y CYTP 02466 STEPHANIE ERNST FRANDY SLCTV 5 [facility] PSC NT INTERPJ XCPT C/V SMR PRIM 39850 [facility] SRC 5 CLINIC CLINIC GRAM/GIEM LABORATO LABORATO SA STAIN BCT FUNGI/LEODAN L COLLECTIO 93937 COMBINED COMBINED N VENOUS 2 PHYSICIAN PHYSICIAN BLOOD S LA S LA VENIPUNCT URE PROTHROMB 47289 COMBINED COMBINED IN TIME 2 PHYSICIAN PHYSICIAN S LA S LA CONTINUOU E0601 ABDON COPPOLA S 2 HOME HOME POSITIVE MEDICAL MEDICAL AIRWAY EQUIPME EQUIPME PRESSURE DEVICE NONCOVERE A9270 [facility] D ITEM OR 2 [facility]ISM [facility] HOSP URNLS DIP 44936 [facility] CENTRAL 2 MORMONISM MORMONISM STICK/TAB HOSP HOSP LET REAGENT AUTO MICROSCOP Y COMPREHEN 59300 [facility]ENTRAL SIVE 2 MORMONISM [facility] [place] [address] JIM KEITH JIM KEITH ABDOMEN & 2 PELVIS W/O CONTRAST MATERIAL PROTHROMB 20704 [facility]ENTRAL IN TIME 2 MORMONISM [facility]ORMONISM HOSP HOSP COLLECTIO 87720 [facility]ENTRAL N VENOUS 2 MORMONISM MORMONISM BLOOD HOSP HOSP VENIPUNCT URE BLOOD 36894 [facility]AL CENTRAL COUNT 2 MORMONISM MORMONISM COMPLETE HOSP HOSP AUTO&AUTO DIFRNTL WBC O2 CONC 1 E1390 ABDON COPPOLA DEL PORT 2 HOME HOME 85%/>02 MEDICAL MEDICAL CONC AT EQUIPME EQUIPME PRSC FLW RATE PRTBLE E0431 ABDON COPPOLA GASEOUS 2 HOME HOME O2 SYS MEDICAL MEDICAL RENT; EQUIPME EQUIPME FLWMTR HUMIDFR&M ASK HEMOGLOBI 81706 WEST MUR WEST MUR N 2 GLYCOSYLA CORTNEY A1C ADMN SET A7003 YOUR YOUR SM VOL 2 PHARMACY PHARMACY NONFILTR PNEUMAT NEBULIZR DISPBL URNLS DIP 10605 STEPHANIE RAMIREZ 2 RAMANA JR THO STICK/TAB [...] AT EQUIPME EQUIPME PRSC FLW RATE COMPREHEN [address] SIVE 2 [facility] METABOLIC INC INC PANEL BLOOD [address] COUNT 2 MEM H[facility] COMPLETE INC INC AUTO&[place]O [place] [address] CLOSTRIDI 2 [facility] UM INC INC DIFFICILE TOXIN THERAPEUT [address] IC 2 [facility] INJECTION INC INC IV PUSH EACH NEW DRUG URNLS DIP [address] 2 [facility] STICK/TAB INC INC [place] [address] AMYLASE 2 [facility] INC INC INJECTION J2405 [address] 2 [facility] ONDANSETR INC INC ON HCL PER [address]D [address] RENDERING 2 [facility] INC INC W/INTERP& POSTPROC DIFF WORK STATION THER [address] PROPH/DX 2 [facility] NJX IV INC INC PUSH SINGLE/1S T SBST/[place] [address] ABDOMEN & 2 [facility] PELVIS INC INC W/[place] [address] LIPASE 2 [facility] INC INC PROTHROMB [address] IN TIME 2 [facility] INC INC CUL BACT [address] STOOL 2 [facility]OS[facility] AEROBIC INC INC ISOL SALMONELL A&SHIGELL PROTHROMB 07177 COMBINED COMBINED IN TIME 2 PHYSICIAN PHYSICIAN S LA S LA POTASSIUM 85852 COMBINED COMBINED SERUM 2 PHYSICIAN PHYSICIAN PLASMA/WH S LA S LA OLE BLOOD COLLECTIO 76256 COMBINED COMBINED N VENOUS 2 PHYSICIAN PHYSICIAN BLOOD S LA S LA VENIPUNCT URE URNLS DIP 64188 [facility] 2 QUINBY JR THO STICK/TAB CLINIC LET RGNT PSC AUTO W/O MICROSCOP Y BASIC 97084 COMBINED COMBINED METABOLIC 2 PHYSICIAN PHYSICIAN [place] [address] INFUSION 2 [facility] THERAPY/P INC INC ROPHYLAXI S /DX 1ST TO [address] IC 2 [facility] INJECTION INC INC IV PUSH EACH NEW DRUG PROTHROMB 64570 COMBINED COMBINED IN TIME 2 PHYSICIAN PHYSICIAN S LA S LA COLLECTIO 65707 COMBINED COMBINED N VENOUS 2 PHYSICIAN PHYSICIAN BLOOD S LA S LA VENIPUNCT URE BLOOD 92988 COMBINED COMBINED COUNT 2 PHYSICIAN PHYSICIAN COMPLETE S LA S LA AUTO&AUTO DIFRNTL WBC COMPREHEN 15259 COMBINED COMBINED SIVE 2 PHYSICIAN PHYSICIAN METABOLIC S LA S LA PANEL NEG PRESS E2402 [facility] WOUND 2 THERAPEUT THERAPEUT THERAPY IC SER IC SER ELEC PUMP INC INC STATION/P RTBLE WND CARE [id number] [facility] SET NEG 2 THERAPEUT THERAPEUT PRSS WND IC SER IC SER TX ELEC INC INC PUMP SPL ADMN SET A7003 YOUR YOUR SM VOL 2 PHARMACY PHARMACY NONFILTR PNEUMAT NEBULIZR DISPBL CANISTER A7000 [facility] DISPOSABL 2 THERAPEUT THERAPEUT E USED IC SER IC SER WITH INC INC SUCTION [facility] INPATIENT ALI DAY MEDICINE MANAGEMEN T > 30 MIN SBSQ 01964 [place] [address] INPATIENT ALI CARE/DAY MEDICINE 25 MINUTES [facility] 93392 [facility] 2 INPATIENT ALI CARE/DAY MEDICINE 35 MINUTES INITIAL 87601 [facility] 2 INPATIENT ALI CARE/DAY MEDICINE 70 MINUTES RADIOLOGI 26387 [facility] [place] C 2 RADIOLOGY RAY [...] AT EQUIPME EQUIPME PRSC FLW RATE SBSQ 82353 [facility] 2 INPATIENT CARE/DAY MEDICINE 25 MINUTES SBSQ 27061 [facility] 2 Y [facility] CARE/DAY ASSOCIATE 15 S MINUTES SBSQ 34888 [place] [address] [facility] CARE/DAY ASSOCIATE 25 S MINUTES SBSQ 33945 [facility] 2 [facility] CARE/DAY EAST 35 PULMONARY MINUTES SBSQ 72503 [facility] 2 [facility] CARE/DAY EAST 35 PULMONARY MINUTES SBSQ 20337 [facility] 2 INPATIENT CARE/DAY MEDICINE 25 MINUTES SBSQ 24973 [facility] 2 INPATIENT CARE/DAY MEDICINE 25 MINUTES CRITICAL 75630 [facility] 2 SUZAN[place] GRA ILL/INJUR EAST ED PULMONARY PATIENT INIT 30-74 MIN RADIOLOGI 74152 [facility] [place] C 2 RADIOLOGY LD IV A EXAMINATI ON CHEST SINGLE VIEW FRONTAL RADIOLOGI 09870 [facility] [place] 2 RADIOLOGY LD IV A EXAMINATI ON CHEST SINGLE VIEW FRONTAL SBSQ 71460 [facility] 2 INPATIENT CARE/DAY MEDICINE 25 MINUTES SBSQ 67036 [facility] 2 [place] CARE/DAY EAST 35 PULMONARY MINUTES SBSQ 67025 [facility] 2 Y [facility] CARE/DAY ASSOCIATE 35 S MINUTES ECG [address] [facility] ROUTINE 2 [facility] ECG CLINIC W/LEAST PSC 12 LDS I&R ONLY SBSQ 10462 [facility] 2 INPATIENT CARE/DAY MEDICINE 25 MINUTES CRITICAL 49595 [facility] 2 SU[place] ANA ILL/INJUR EAST ED PULMONARY PATIENT INIT 30-74 MIN RADIOLOGI 54290 [facility] [place] S[facility] C 2 RADIOLOGY III KEITH EXAMINATI ON CHEST SINGLE VIEW FRONTAL RADIOLOGI 30551 [facility] [place] S[facility] C 2 RADIOLOGY III KEITH EXAMINATI ON CHEST SINGLE VIEW FRONTAL CRITICAL 81427 [facility] 2 SUZ[place] ANA ILL/INJUR EAST ED PULMONARY PATIENT INIT 30-74 MIN SBSQ 74021 [facility] 2 INPATIENT CARE/DAY MEDICINE 25 MINUTES SBSQ 40144 [facility] 2 INPATIENT ARU CARE/DAY MEDICINE 25 MINUTES CRITICAL 76376 [facility] 2 SUZANNE ILL/INJUR EAST ED PULMONARY PATIENT INIT 30-74 MIN SBSQ 46602 [facility] 2 Y [facility] CARE/DAY ASSOCIATE 35 S MINUTES RADIOLOGI 16922 [facility] [place] C 2 RADIOLOGY STEPHANY EXAMINATI ON CHEST SINGLE VIEW FRONTAL DAILY 00504 [facility] 2 A MIH ASSOCIATE EDRL/PAULETTE S PSC CH CONT DRUG ADMN RADIOLOGI 02497 [facility] [place] [facility] C 2 RADIOLOGY EXAMINATI ON CHEST SINGLE VIEW FRONTAL INITIAL 53579 NEPHROLOG [facility] 2 Y THO CARE/DAY ASSOCIATE 70 S MINUTES SBSQ 57035 [facility] 2 INPATIENT ARU CARE/DAY MEDICINE 35 [place] [address] [facility] [place] RETROPERI 2 RADIOLOGY RAY TONEAL REAL TIME W/IMAGE LIMITED INSJ 68561 [facility] NON-TUNNE 2 SUZ[place]NE SAWYER LED [facility] CENTRAL PULMONARY VENOUS CATH AGE 4 YR/> ARTL 53494 [facility] CATHJ/CAN 2 SUZANNE SAWYER NULJ [facility] MNTR/SWIFT PULMONARY SFUSION SPX PRQ CRITICAL 21623 [facility] 2 SUZANNE SAWYER ILL/INJUR [facility] ED PULMONARY PATIENT INIT 30-[address] [facility] VENOUS [address] [place] [address] CATHETER PLACEMENT WITH GUIDANCE INSERTION [address] [facility] OF [address] [place] [address] ENDOTRACH EAL TUBE ARTERIAL [address] [facility] CATHETERI [address] [place] [address] [facility] INVASIVE [address] [place] [address] MECH VENT 96 CONSECUTI VE HRS/MORE PARTIAL [address] MY ECG 18394 [place] FRANDY ROUTINE 2 [facility] ECG CLINIC W/LEAST PSC 12 [place] [address] NEW [place] SURG 2 [facility] PATHOLOGY CLINIC PSC GROSS&MIGUEL ROSCOPIC EXAM INITIAL 38066 [facility] 2 INPATIENT ARU CARE/DAY MEDICINE 70 MINUTES NJXS 73831 ANESTHESI VANCE INFUS/MAITE 2 A SCO US ASSOCIATE DX/SBST S PSC EDRL/SUBA PETER CRV/THRC NEPHRECTO 85017 [facility] THO PARTIAL CLINIC PSC ANES 97063 ANESTHESI CIFUENTES LAR XTRPRTL 2 A LOWER ABD ASSOCIATE UR TRACT S PSC RENAL DON NFRCT RADIOLOGI 93331 [facility] [place] [facility] C EXAM 2 RADIOLOGY CHEST 2 VIEWS FRONTAL&L ATERAL ECG 48874 [facility] ROUTINE 2 [facility] ECG CLINIC W/LEAST PSC 12 LDS I&R ONLY O2 CONC 1 E1390 ABDON COPPOLA DEL PORT 2 HOME HOME 85%/>02 MEDICAL MEDICAL CONC AT EQUIPME EQUIPME PRSC FLW RATE PRTBLE E0431 ABDON COPPOLA GASEOUS 2 HOME HOME O2 SYS MEDICAL MEDICAL RENT; EQUIPME EQUIPME FLWMTR HUMIDFR&M ASK COLLECTIO 95310 COMBINED COMBINED N VENOUS 2 PHYSICIAN PHYSICIAN BLOOD S LA S LA VENIPUNCT URE PROTHROMB 59951 COMBINED COMBINED IN TIME 2 PHYSICIAN PHYSICIAN S LA S LA URNLS DIP 43478 [facility] 2 FOOT & JR THO STICK/TAB ANKLE LET RGNT SPECI AUTO W/O MICROSCOP Y HEMOGLOBI 32520 [facility] 2 GLYCOSYLA CORTNEY A1C PROTHROMB 75565 COMBINED COMBINED IN TIME 2 PHYSICIAN PHYSICIAN S LA S LA COLLECTIO 33662 COMBINED COMBINED N VENOUS 2 PHYSICIAN PHYSICIAN BLOOD S LA S LA VENIPUNCT URE COLLECTIO 48841 COMBINED COMBINED N VENOUS 2 PHYSICIAN PHYSICIAN BLOOD S LA S LA VENIPUNCT URE URNLS DIP 51403 [facility] [place] THO STICK/TAB CLINIC LET PSC REAGENT AUTO MICROSCOP Y PROTHROMB 29837 COMBINED COMBINED IN TIME 2 PHYSICIAN PHYSICIAN S LA S LA PROTHROMB 13779 COMBINED COMBINED IN TIME 2 PHYSICIAN PHYSICIAN S LA S LA COLLECTIO 40394 COMBINED COMBINED N VENOUS 2 PHYSICIAN PHYSICIAN BLOOD S LA S LA VENIPUNCT URE COLLECTIO 86550 COMBINED COMBINED N VENOUS 2 PHYSICIAN PHYSICIAN BLOOD S LA S LA VENIPUNCT URE PROTHROMB 49233 COMBINED COMBINED IN TIME 2 PHYSICIAN PHYSICIAN S LA S LA PROTHROMB 34873 COMBINED COMBINED IN TIME 2 PHYSICIAN PHYSICIAN S LA S LA COLLECTIO 68020 COMBINED COMBINED N VENOUS 2 PHYSICIAN PHYSICIAN BLOOD S LA S LA VENIPUNCT URE COLLECTIO 64329 COMBINED COMBINED N VENOUS 2 PHYSICIAN PHYSICIAN BLOOD S LA S LA VENIPUNCT URE PROTHROMB 29865 COMBINED COMBINED IN TIME 2 PHYSICIAN PHYSICIAN S LA S LA CLOTTING 11913 [facility] INHIBITOR 2 AMERIC AMERIC S [employer] C ACTIVITY PROTHROMB 79628 COMBINED COMBINED IN TIME 2 PHYSICIAN PHYSICIAN S LA S LA CYSTOURET 52336 [facility] HROSCOPY 2 FOOT & THO ANKLE SPECI CLOTTING 12069 [facility] INHIBITOR 2 AMERIC AMERIC S [employer] S FREE CT THORAX 12028 [facility] [place] 2 RADIOLOGY RHO W/[place] [address] [facility] [place] ABDOMEN & 2 RADIOLOGY RHO PELVIS W/O CONTRST 1/> BODY RE URNLS DIP [address] LET REAGENT AUTO MICROSCOP Y COLLECTIO 81516 COMBINED COMBINED N VENOUS 2 PHYSICIAN PHYSICIAN BLOOD S LA S LA VENIPUNCT URE COLLECTIO 12866 COMBINED COMBINED N VENOUS 2 PHYSICIAN PHYSICIAN BLOOD S LA S LA VENIPUNCT URE PROTHROMB 53187 COMBINED COMBINED IN TIME 2 PHYSICIAN PHYSICIAN S LA S LA ECHO 36424 CEN[facility]AL CENTRAL TTHRC R-T 2 MORMONISM MORMONISM 2D HOSP HOSP W/WOM-MOD E COMPL SPEC&COLR D O2 CONC 1 E1390 ABDON COPPOLA DEL PORT 2 HOME HOME 85%/>02 MEDICAL MEDICAL CONC AT EQUIPME EQUIPME PRSC FLW RATE PRTBLE E0431 ABDON COPPOLA GASEOUS 2 HOME HOME O2 SYS MEDICAL MEDICAL RENT; EQUIPME EQUIPME FLWMTR HUMIDFR&M ASK COMPREHEN 11982 COMBINED COMBINED SIVE 2 PHYSICIAN PHYSICIAN METABOLIC S LA S LA PANEL COLLECTIO 24796 COMBINED COMBINED N VENOUS 2 PHYSICIAN PHYSICIAN BLOOD S LA S LA VENIPUNCT URE PROTHROMB 00832 COMBINED COMBINED IN TIME 2 [place] [address] COMBINED COMBINED THYROID 2 PHYSICIAN PHYSICIAN STIMULATI [place] [address] COMBINED COMBINED FREE 2 PHYSICIAN PHYSICIAN THYROXINE S LA S LA BLOOD 88341 COMBINED COMBINED COUNT 2 PHYSICIAN PHYSICIAN COMPLETE S LA S LA AUTO&AUTO DIFRNTL WBC HEMOGLOBI 91572 COMBINED COMBINED N 2 PHYSICIAN PHYSICIAN GLYCOSYLA S LA S LA CORTNEY A1C NATRIURET 54267 [facility] IC 2 [facility] PEPTIDE HOSP HOSP THER 61681 [facility]EN[facility]AL C[facility]TRAL PROPH/DX 2 MORMONISM MORMONISM NJX IV HOSP HOSP PUSH SINGLE/1S T SBST/DRUG PROTHROMB 03875 CENTRAL CENTRAL IN TIME 2 [facility] HOSP HOSP RADIOLOGI 07043 [facility]AL C EXAM 2 M[facility]ISM MORMONISM CHEST 2 HOSP HOSP VIEWS FRONTAL&L ATERAL BLOOD 33549 [facility]AL [facility] COUNT 2 M[facility]ISM M[facility] COMPLETE HOSP HOSP AUTO&AUTO DIFRNTL WBC COMPREHEN 37959 [facility]EN[facility]AL CENTRAL SIVE 2 [facility]ISM [facility] METABOLIC HOSP HOSP PANEL NONCOVERE A9270 CENTRAL CENTRAL D ITEM OR 2 MORMONISM MORMONISM SERVICE HOSP HOSP PROTHROMB 91423 COMBINED COMBINED IN TIME 2 PHYSICIAN PHYSICIAN S LA S LA COLLECTIO 35192 COMBINED COMBINED N VENOUS 2 PHYSICIAN PHYSICIAN BLOOD S LA S LA VENIPUNCT URE BLOOD 64572 [place] COUNT 2 [facility] AUTO&[place] [address] [place] ABDOMEN & 2 RADIOLOGY RAY PELVIS W/CONTRAS T MATERIAL PROTHROMB 81401 [place] IN TIME 2 [facility] THER 39075 [place] PROPH/DX 2 [facility] NJX IV HOSPITAL HOSPITAL PUSH SINGLE/1S T SBST/DRUG URNLS DIP 98564 [place] 2 [facility] STICK/TAB HOSPITAL HOSPITAL LET REAGENT AUTO MICROSCOP Y COLLECTIO 47176 [place] N VENOUS 2 [facility] VENIPUNCT [facility] BASIC 53186 [facility] METABOLIC 2 [facility] CALCIUM TOTAL PROTHROMB 65493 COMBINED COMBINED IN TIME 2 PHYSICIAN PHYSICIAN S LA S LA COLLECTIO 96207 COMBINED COMBINED N VENOUS 2 PHYSICIAN PHYSICIAN BLOOD S LA S LA [facility] 10438 [facility] 2 MEDICINE DEN DAY SERV MANAGEMEN @CTRL BAP T > 30 MIN SBSQ 36673 [place] [address] MEDICINE DEN CARE/DAY SERVICES 25 MINUTES SBSQ 77576 [place] [address] MEDICINE DEN CARE/DAY SERVICES 25 MINUTES SBSQ 37610 [place] [address] MEDICINE DEN CARE/DAY SERVICES 35 MINUTES SBSQ 06030 [place] [address] MEDICINE DEN CARE/DAY SERVICES 35 MINUTES SBSQ 47547 [facility] 2 MEDICINE CARE/DAY SERV 35 @CTRL BAP MINUTES INITIAL 27771 [facility] 2 [facility] CARE/DAY CLINIC 50 PSC MINUTES SBSQ 79242 [place] [address] ONCOLOGY CARE/DAY ASSOCIATE 15 S MINUTES INITIAL [address] CARE/DAY [place] [address] [place] [address] CEN[facility]AL GARZA ADA ABDOMEN & 2 RADIOLOGY PELVIS ASSOC W/O CONTRAST MATERIAL VENOGRAPH 63614 [facility] CAVAL 2 SURGICAL THO INFERIOR ASSOCIATE SERIALOGR S APHY RS&I DUP-SCAN 45157 [facility] XTR VEINS 2 ANT COMPLETE CARDIOLOG Y AT [facility] BILATERAL STUDY ANGIOCARD 8851 CENTRAL CENTRAL IOGRAPHY 2 [facility]ISM [facility]P CAVAE INTERRUPT 387 CENTRAL CENTRAL ION OF 2 MORMONISM [facility]ISM [facility] CAVA ECHO 25495 [facility] TTHRC R-T 2 IV HEN 2D CARDIOLOG W/WOM-MOD Y AT CENT E COMPL SPEC&COLR D INTRO 77944 KEE SWEET CATHETER 2 THO THO SUPERIOR/ INFERIOR VENA CAVA INS 06842 KEE SCHWCATA INTRVAS 2 THO THO VC FILTR W/WO VAS ACS VSL SELXN RS&I COMPREHEN 98058 YNES QUICK SIVE 2 [facility] PANEL BLOOD 74773 YNES QUICK COUNT 2 [facility] AUTO&AUTO DIFRNTL WBC ECG 99461 ROBBY BUSTAMANTE ROUTINE 2 EMERGENCY EMERGENCY ECG SERVICES SERVICES W/LEAST 12 LDS I&R ONLY THERAPEUT 62489 YNES QUICK IC 2 [facility] INJECTION [facility] IV PUSH EACH NEW DRUG CULTURE 24056 [facility]HE[facility] BACTERIAL 2 [facility] AEROBIC W/ID ISOLATES THROMBOPL 80269 YNES QUICK ASTIN 2 [facility] PARTIAL PLASMA/WH OLE BLOOD COLLECTIO 55431 YNES QUICK N VENOUS 2 [facility] VENIPUNCT URE PROTHROMB 16028 YNES QUICK IN TIME [address] [place] [address] FIBRIN 38115 YNES QUICK DGRADJ 2 [facility] D-DIMER QUANTITAT JOANIE ECG 14134 YNES QUICK ROUTINE 2 [facility] HOSPITAL W/LEAST 12 LDS TRCG ONLY W/O I&R THER 91767 YNES QUICK PROPH/DX 2 [facility] NJX IV HOSPITAL HOSPITAL PUSH SINGLE/1S T SBST/DRUG THERAPEUT 72826 YNES QUICK IC 2 [facility] PROPHYLAC [facility] TIC/DX INJECTION SUBQ/IM RADIOLOGI 22822 ROBBY BUSTAMANTE C 2 EMERGENCY EMERGENCY EXAMINATI SERVICES SERVICES ON CHEST SINGLE VIEW FRONTAL CT THORAX 26973 [facility] H[facility] T MATERIAL RADIOLOGI 47989 [facility] LUDWIG C EXAM [address] VIEWS FRONTAL&L ATERAL PRTBLE E0431 ABDON COPPOLA GASEOUS 2 HOME HOME O2 SYS MEDICAL MEDICAL RENT; EQUIPME EQUIPME FLWMTR HUMIDFR&M ASK O2 CONC 1 E1390 ABDON COPPOLA DEL PORT 2 HOME HOME 85%/>02 MEDICAL MEDICAL CONC AT EQUIPME EQUIPME [facility] FLW RATE BASIC [address] METABOLIC 2 [facility] PANEL INC INC CALCIUM TOTAL CYTP 49908 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 2 Y MONICA OF Y MONICA OF CELL LINDA LINDA ENHANCEME H H NT INTERPJ XCPT C/V CUL BACT [address] XCPT 2 [facility] URINE INC INC BLOOD/STO OL AEROBIC ISOL THERAPEUT [address] IC 2 [facility] INJECTION INC INC IV PUSH EACH NEW DRUG PRESSURIZ [address] ED/NONPRE 2 [facility] SSURIZED [place] [address] INFUSION 2 [facility] THERAPY/P INC INC ROPHYLAXI S /DX 1ST TO 1 HR URNLS DIP [address] STICK/TAB CLINIC LET PSC REAGENT AUTO MICROSCOP Y SMR PRIM [address] SRC 2 [facility] GRAM/GIEM INC INC SA STAIN BCT FUNGI/LEODAN L CULTURE [address] BACTERIAL 2 [facility] BLOOD INC INC AEROBIC W/ID ISOLATES RADIOLOGI 25410 [facility] EXAM 2 MEDICAL STEFF CHEST 2 IMAGING VIEWS ASS FRONTAL&L ATERAL PROTHROMB [address] IN TIME 2 [facility] [place] [address] LAB [facility]ICA LAB MONICA PROSTATE 2 AMERIC AMERIC 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 TOTAL BLOOD [address] COUNT 2 [facility] COMPLETE INC INC AUTO&AUTO DIFRNTL WBC O2 CONC 1 E1390 ABDON COPPOLA DEL PORT 2 HOME HOME 85%/>02 MEDICAL MEDICAL CONC AT EQUIPME EQUIPME [facility] FLW RATE PRTBLE E0431 ABDON COPPOLA GASEOUS 2 HOME HOME O2 SYS MEDICAL MEDICAL RENT; EQUIPID EQUIPID FLWMTR HUMIDFR&M ASK MRI BRAIN 74872 NEURODIAG [place] BRAIN 2 NOSTICPSC ROL STEM W/[place] [address] NIKA DAGOBERTO HEAD/BRAI 2 MEDICAL STEFF N W/O IMAGING CONTRAST ASS MATERIAL CT ORBIT 39828 NIKA DAGOBERTO SELLA/POS 2 MEDICAL STEFF T IMAGING FOSSA/EAR ASS W/O CONTRAST MATRL 3D [address] RENDERING 2 [facility] W/INTERP INC INC & POSTPROCE SS SUPERVISI ON THERAPEUT [address] IC 2 [facility] PROPHYLAC INC INC TIC/DX INJECTION SUBQ/IM PROTHROMB 70958 OZIELON RASHIDAURBON IN TIME 2 [facility] COLLECTIO 78043 [place] N VENOUS 2 [facility] VENIPUNCT URE PROTHROMB 35271 [place] IN TIME 2 [facility] COLLECTIO 50532 [place] N VENOUS 2 [facility] VENIPUNCT URE DUP-SCAN 98047 BOSOLITARIOON RASHIDAURBON XTR VEINS 2 [facility] BILATERAL STUDY RADIOLOGI 59382 [facility] [place] MAT C EXAM 2 RADIOLOGY CHEST 2 VIEWS FRONTAL&L ATERAL O2 CONC 1 E1390 ABDON COPPOLA DEL PORT 2 HOME HOME 85%/>02 MEDICAL MEDICAL CONC AT EQUIPME EQUIPME PRSC FLW RATE PRTBLE E0431 ABDON COPPOLA GASEOUS 2 HOME HOME O2 SYS MEDICAL MEDICAL RENT; EQUIPME EQUIPME FLWMTR HUMIDFR&M [facility] 02516 [facility] 2 EMERGENCY DENISE DAY SERVICES MANAGEMEN T > 30 MIN SBSQ 90216 [facility] 2 EMERGENCY DENISE CARE/DAY SERVICES 25 MINUTES SBSQ 67660 [facility] 2 EMERGENCY DENISE CARE/DAY SERVICES 25 MINUTES SBSQ 08294 [facility] 2 EMERGENCY DENISE CARE/DAY SERVICES 25 MINUTES ECHO 89108 PEPE NEVAREZ NEVAREZ PEPE TTHRC R-T 2 2D CONSULTIN W/WOM-MOD G SERV E COMPL SPEC&COLR D DUP-SCAN 15720 PEPE NEVAREZ NEVAREZ PEPE XTR VEINS 2 COMPLETE CONSULTIN G SERV BILATERAL STUDY INITIAL 20635 [facility] 2 EMERGENCY DENISE CARE/DAY SERVICES [address] THORAX 70495 [facility] [place] 2 RADIOLOGY RAY W/CONTRAS T MATERIAL RADIOLOGI 95790 [facility] [place] MAT C 2 RADIOLOGY EXAMINATI ON CHEST SINGLE VIEW FRONTAL ECG 19583 ROBBY GRAY ISIDORO ROUTINE 2 EMERGENCY ECG SERVICES W/LEAST 12 LDS I&R ONLY CRITICAL 98933 ROBBY GRAY ISIDORO CARE 2 EMERGENCY ILL/INJUR SERVICES ED PATIENT INIT 30-74 MIN COMPREHEN 91209 [facility]EN[facility]AL CENTRAL SIVE 2 [facility]ISM [facility] METABOLIC HOSP HOSP PANEL CULTURE 55437 CENTRAL CENTRAL BACTERIAL 2 [facility] HOSP HOSP [place] [address] CENTRAL CENTRAL BLOOD/URI 2 MORMONISM MORMONISM C ACID HOSP HOSP BLOOD 06966 CENTRAL CENTRAL COUNT 2 MOR[facility]ISM M[facility]MONISM COMPLETE HOSP HOSP AUTO&AUTO DIFRNTL WBC URNLS DIP 56365 CENTRAL CENTRAL 2 MORMONISM MORMONISM STICK/TAB HOSP HOSP LET REAGENT AUTO MICROSCOP Y URNLS DIP 73709 [facility] MUR 2 STICK/TAB LET RGNT NON-AUTO W/O MICRSCP IAADIADOO 86355 [facility] MUR 2 STREPTOCO CCUS GROUP A HEMOGLOBI 26734 [facility] MUR N 2 GLYCOSYLA CORTNEY A1C BLOOD [address] GASES ANY 2 MEM HOS[facility]OS[facility] INC INC COMBINATI ON PH PCO2 PO2 [place]2 [place] [address] TROPONIN 2 MEM HOS[facility] MEM HOS[facility] QUANTITAT INC INC JOANIE NATRIURET [address] IC 2 MEM HOS[facility] MEM HOSP PEPTIDE INC INC BLOOD [address] COUNT 2 MEM [facility] MEM [facility]OS[facility] COMPLETE INC INC AUTO&AUTO DIFRNTL WBC CREATINE [address] KINASE MB 2 MEM HOS[facility] MEM [facility]OS[facility] FRACTION INC INC ONLY RADIOLOGI 52767 NIKA Daniel 2 MEDICAL STEFF EXAMINATI IMAGING ON CHEST ASS SINGLE VIEW FRONTAL IAADI [address] INFLUENZA 2 MEM [facility] B VIRUS INC INC IAADI [address] INFFLUENZ 2 [facility] A A VIRUS INC INC ECG 00103 ARIANA ARIANA ROUTINE 2 MEM HOSP MEM [facility]OSP ECG INC INC W/LEAST 12 LDS TRCG ONLY W/O I&R CREATINE [address] KINASE 2 MEM HOS[facility]OS[facility] TOTAL INC INC CULTURE [address] BACTERIAL 2 MEM [facility]OS[facility] BLOOD INC INC AEROBIC W/ID ISOLATES COMPREHEN [address] SIVE 2 [facility]OS[facility] METABOLIC INC INC PANEL ECG 43123 ROBBY GUAN ROUTINE 2 EMERGENCY MIGUEL ECG SERVICES W/LEAST 12 LDS I&[place] [address] ARI[place] ARIANA INFUSION 2 [facility] THERAPY/P INC INC ROPHYLAXI S /DX 1ST TO [address] ED/NONPRE 2 [facility] SSURIZED INC INC INHALATIO N TREATMENT THERAPEUT [address] IC 2 [facility]OS[facility] INJECTION [place] [address] YNES QUICK HEAD/BRAI 1 [facility] N W/O HOSPITAL HOSPITAL CONTRAST MATERIAL INSJ TEMP [address] NDWELLG 1 MEM H[facility]OS[facility] BLADDER INC INC CATHETER SIMPLE BLOOD [address] COUNT 1 [facility] COMPLETE INC INC AUTO&AUTO DIFRNTL WBC URNLS DIP [address] 1 [facility]OS[facility] STICK/TAB INC INC LET REAGENT AUTO MICROSCOP Y COMPREHEN [address] SIVE 1 [facility]OS[facility] METABOLIC INC INC PANEL SPMTRY 79950 [facility] MUR W/VC 1 EXPIRATOR Y HANSEL W/WO MXML VOL VNTJ MULTIPLE 77932 ADVANCED ADVANCED NERVE 1 PAIN PAIN BLOCK MEDICIINE MEDICIINE INJECTION PSC PSC S RIB NERVES FLUOROSCO 14228 ADVANCED ADVANCED PIC 1 PAIN PAIN GUIDANCE MEDICIINE MEDICIINE NEEDLE PSC PSC PLACEMENT ADD ON RADEX 36756 [facility] SPINE 1 [facility] THORACIC [facility] 2 [place] [address] [facility] FREE 1 [facility] THYROXINE [facility] [place] [address] [facility] THYROID 1 [facility] HEMOGLOBI 97355 [facility] N 1 [facility] CORTNEY A1C COLLECTIO 79430 [facility] N VENOUS 1 [facility] VENIPUNCT URE RADIOLOGI 52778 [facility] C EXAM 1 [facility] CHEST [address] [place] [address] HOSPITAL VIEWS FRONTAL&L ATERAL BLOOD 82185 [facility] COUNT 1 [facility] SMEAR [facility] MCRSCP W/MNL DIFRNTL WBC COUNT COMPREHEN 99753 [facility] SIVE 1 [facility] METABOLIC [facility] PANEL BLOOD 00139 [facility] COUNT 1 [facility] AUTOMATED URNLS DIP [address] STICK/TAB HOSPITAL HOSPITAL LET REAGENT AUTO MICROSCOP Y LIPID 94418 [facility] PANEL 1 [facility] INJECTION 78900 [facility] [place] 1 PAIN [place] ANESTHETI MEDICIINE C AGENT PSC [facility] NRV INJECTION J3301 [facility] [place] 1 PAIN [place] TRIAMCINO MEDICIINE LONE PSC ACETONIDE NOS 10 MG INJECTION J3301 ADVANCED ADVANCED 1 PAIN PAIN TRIAMCINO MEDICIINE MEDICIINE LONE PSC PSC ACETONIDE NOS 10 MG NJX 66280 [facility] [place] DX/THER 1 [place] [place] AGT PVRT MEDICIINE FACET JT PSC CRV/THRC 1 LEVEL NJX 23744 [facility] [place] DX/THER 1 [place] AGT PVRT MEDICIINE FACET JT PSC CRV/THRC 3+ LEVEL MODERATE 45810 [facility] [place] SEDATJ 1 [place] SAME MEDICIINE PHYS/QHP PSC 5/>YRS INIT 30 MIN NJX 00225 [facility] [place] DX/THER 1 [place] AGT PVRT MEDICIINE FACET JT PSC CRV/THRC 2ND LEVEL LOCM Q9965 [facility] [place] 100-199 1 [place]IN [place] MG/ML MEDICIINE IODINE PSC CONCENTRA TION PER ML INFLUENZA Q2038 [facility] VACC 1 SPLIT VIRUS 3 YRS & > IM FLUZONE ADMINISTR G0008 [facility] ATION OF 1 INFLUENZA VIRUS VACCINE OPHTH [address] [facility] 1 VISION XM&EVAL COMPRE NEW PT 1/> VST INJECTION J3301 [facility] [place] 1 PAIN [place] TRIAMCINO MEDICIINE LONE PSC ACETONIDE NOS 10 MG FLUOR 31553 [facility] [place] NEEDLE/CA 1 PAIN [place] TH MEDICIINE SPINE/PAR PSC ASPINAL DX/THER ADDON MODERATE 62526 [facility] [place] SEDATJ 1 [place] SAME MEDICIINE PHYS/QHP PSC 5/>YRS INIT 30 MIN NJX 04972 [facility] [place] DX/THER 1 [place] SBST MEDICIINE EPIDURAL/ PSC SUBRACH CERV/THOR ACIC HEMOGLOBI 18434 [facility] N 1 GLYCOSYLA CORTNEY A1C INJECTION J3301 [facility] [place] 1 PAIN [place] TRIAMCINO MEDICIINE LONE PSC ACETONIDE NOS 10 MG NJX 45732 [facility] [place] DX/THER 1 [place] AGT PVRT MEDICIINE FACET JT PSC CRV/THRC 3+ LEVEL NJX 97521 [facility] DX/THER 1 [facility] [place] AGT PVRT MEDICIINE FACET JT PSC CRV/THRC 1 LEVEL MODERATE 39112 [facility] SEDATJ 1 [facility] [place] SAME MEDICIINE PHYS/QHP PSC 5/>YRS INIT 30 MIN NJX 64400 [facility] DX/THER 1 [place] [place] AGT PVRT MEDICIINE FACET JT PSC CRV/THRC 2ND LEVEL LOCM Q9965 [facility] 100-199 1 [facility] [place] MG/ML MEDICIINE IODINE PSC CONCENTRA TION PER ML INJECTION J1030 [facility] 1 METHYLPRE DNISOLONE ACETATE 40 MG INJECTION J1100 [facility] 1 DEXAMETHO SONE SODIUM PHOSPHATE 1 MG MRI 65016 NEURODIAG [place] SPINAL 1 NOSTICPSC ROL CANAL THORACIC W/O CONTRAST MATRL MRI 74248 NEURODIAG [place] SPINAL 1 NOSTICPSC ROL CANAL LUMBAR W/O CONTRAST MATERIAL MRI 24827 NEURODIAG [place] ABDOMEN 1 NOSTICPSC ROL W/O & W/CONTRAS T MATERIAL MRI [address] SPINAL 1 [facility] CANAL INC INC CERVICAL W/O CONTRAST MATRL 3D 04295 [facility] [place] RENDERING 1 [facility] W/INTERP INC INC & POSTPROCE SS SUPERVISI ON PROSTATE G0103 [facility]ER 1 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 ; PSA TEST CT THORAX 33613 [facility] [place] [address] [facility] 1 [facility] CONTRAST MATERIAL RADIOLOGI 11860 [facility] [place] SEAN Shah C EXAM 1 RADIOLOGY CHEST 2 VIEWS FRONTAL&L ATERAL HEMOGLOBI 52152 [facility] N 1 GLYCOSYLA CORTNEY A1C NATRIURET 82012 [facility] IC 1 [facility] [address] [facility] TROPONIN 1 [facility] JOANIE COLLECTIO 75658 [facility] N VENOUS [facility] VENIPUNCT URE RADIOLOGI 24336 [facility] C EXAM [address] VIEWS FRONTAL&L ATERAL THROMBOPL 05412 YNES QUICK ASTIN 1 [facility] PARTIAL PLASMA/WH OLE BLOOD FIBRIN 26459 YNES QUICK DGRADJ 1 [facility] D-DIMER QUAL/SEMI FLACO PROTHROMB 71053 YNES QUCIK IN TIME 1 [facility] ECG 31526 YNES QUICK ROUTINE 1 [facility] W/LEAST 12 LDS TRCG ONLY W/O I&R THER 04827 YNES QUICK PROPH/DX 1 [facility] SINGLE/1S T SBST/DRUG COMPREHEN 60832 YNES QUICK SIVE 1 [facility] PANEL BLOOD 18976 YNES QUICK COUNT 1 [facility] AUTO&AUTO DIFRNTL WBC Encounters Encounter Start End Date Code Location Performer Type Date OFFICE 97674 [facility] 7 PHYSICIAN T VISIT PRACTICE 25 L MINUTES EMERGENCY 63405 ADRIANE BURKS 7 7 PHYSICIAN U DEPARTMEN S, PLL[facility] T VISIT HIGH/URGE NT SEVERITY [facility] 7 7 [facility] YNES - 7 7 [facility] T OFFICE 44900 [facility] 7 [place] [facility] 25 PSC MINUTES OFFICE 46754 [facility] 7 PHYSICIAN T VISIT PRACTICE 15 L MINUTES OFFICE 96290 YNES TATE [facility] 7 7 PHYSICIAN T VISIT PRACTICE 15 L MINUTES EMERGENCY 41639 [facility] DEPT 7 7 [place] VISIT EMERGENCY HIGH PHYS SEVERITY& THREAT FUNCJ OFFICE 00792 STEPHANIE BONNER [facility] 7 7 [place] T VIS[facility]INIC 40 PSC MINUTES HOSPITAL [facility] - 7 7 [facility] OUTPATIEN INC T OFFICE 83442 YNES TATE OUTPATIEN 7 7 PHYSICIAN T VISIT PRACTICE 15 L MINUTES OFFICE 13959 NEPHROLOG [facility] OUTPATIEN 7 7 Y T VISIT ASSOCIATE 25 S OF CIELO MINUTES EMERGENCY 59896 ADRIANE GOLDSMITH 7 7 PHYSICIAN DEPARTMEN [facility] PLL[facility] T VISIT HIGH/URGE NT SEVERITY HOSPITAL [place] - 7 7 MEM [facility]P OUTPATIEN INC T OFFICE 39923 [facility] T VISIT PRACTICE 15 L MINUTES OFFICE 99717 YNES [facility] 7 7 PHYSICIAN T VISIT PRACTICE 15 L MINUTES OFFICE [address] [facility] [facility] 7 7 [place] [facility] 15 PSC MINUTES EMERGENCY 21677 [facility] 7 7 [facility] DEPARTMEN INC T VISIT MODERATE SEVERITY HOSPITAL [facility] - 7 7 [facility] OUTPATIEN INC [facility]OSPITAL [facility] - 6 6 [facility] T EMERGENCY 54218 [facility] THE 6 6 [facility] STRIDE DEPARTMEN INC PROGRAM T VISIT HIGH/URGE NT SEVERITY HOSPITAL [facility] - 6 6 [facility] OUTPATIEN [facility] T OFFICE [address] [facility] [facility] 6 6 [place] JUS T VISIT CLINIC 15 PSC MINUTES OFFICE 22729 NEPHROLOG SAUNDERS OUTPATIEN 6 6 Y [place] T VISIT ASSOCIATE 40 S OF CIELO MINUTES [facility]OSP[facility] - 6 6 N OUTPATIEN COMMUNTIY T [facility] - 6 6 [facility] T OFFICE 76187 DAPHNE DAPHNE OUTPATIEN 6 6 ANA ANA T NEW 45 MINUTES OFFICE 48468 [facility] T VISIT MEDICAL 15 G MINUTES OFFICE 93329 [facility] V[facility]PATI[facility] 6 6 [facility] T NEW 45 MEDICAL MINUTES G HOSPITAL [facility] - 6 6 HEALTH OUTPATIEN [place] T OFFICE 74253 PEPE NEVAREZ NEVAREZ PEPE OUTPATIEN 5 5 MD T VISIT CONSULTIN 40 G SRV MINUTES HOSPITAL [facility] - 5 5 [facility] OUTPATIEN INC T EMERGENCY 81587 [facility] 5 5 [facility] DEPARTMEN INC T VISIT MODERATE SEVERITY OFFICE 22708 STEPHANIE SILVA OUTPATIEN 5 5 [place] JUS T VISIT CLINIC 15 PSC MINUTES HOSPITAL [facility] - 5 5 [facility] OUTPATIEN INC T OFFICE 50418 VIJAY BUX BUX ANJ OUTPATIEN 5 5 MD T NEW 30 MINUTES HOSPITAL [facility] - 5 5 [facility] OUTPATIEN INC [facility] - 5 5 [facility] OUTPATIEN INC T [facility]OSPITAL [facility] - 5 5 [facility] OUTPATIEN INC T HOSPITAL UNIVERSIT - 5 5 Y INPATIENT HOSPITAL OFFICE 67984 STEPHANIE SILVA OUTPATIEN 5 5 [place] [facility] T VISIT CLINIC 15 PSC MINUTES Emergency AMALIA Saxena MD (ER) 4 20:18 4 22:18 [facility] Emergency AMALIA Canales (ER) 3 23:09 3 01:[address] [facility] Emergency AMALIA Guan MD (ER) 3 21:23 3 00:27 [facility] Emergency AMALIA Guan MD (ER) 3 19:06 3 21:45 [facility] OFFICE 26861 ELODIA [facility] OUTPATIEN 2 2 T VISIT 25 MINUTES HOSPITAL [facility] - 2 2 [facility] OUTPATIEN HOSP T EMERGENCY 50000 [facility] 2 2 [facility] DEPARTMEN HOSP T VISIT HIGH/URGE NT SEVERITY OFFICE 28823 [facility] OUT[facility] 2 2 T VISIT 25 MINUTES EMERGENCY 45459 [facility] 2 2 [facility] DEPARTMEN INC T VISIT HIGH/URGE NT SEVERITY EMERGENCY 81144 [facility] ZIEGLER DEPT 2 2 EMERGENCY III [facility] HIGH SEVERITY& THREAT [facility] ARIANA - 2 2 [facility] OUTPATIEN INC T OFFICE 62674 ELODIA [facility] OUTPATIEN 2 2 T VISIT 25 MINUTES EMERGENCY 16774 [facility] 2 2 [facility] H[facility]URGE NT SEVERITY H[facility] [place] - 2 2 [facility] H[facility] OUTPATIEN INC T OFFICE 53412 ELODIA [facility] OUTPATIEN 2 2 T VISIT 25 MINUTES EMERGENCY 84796 [facility] DEPT 2 2 JEROD VISIT EMERGENCY HIGH PHYS SEVERITY& THREAT [facility] OFFICE 76913 [facility] WEST MUR OUTPATIEN 2 2 T VISIT 25 MINUTES [address] INPATIENT OFFICE 10704 SCHWARCZ SCHWARCZ OUTPATIEN 2 2 THO THO T VISIT 25 MINUTES OFFICE 14646 [facility] OUT[facility] 2 2 FOOT & JR THO T VISIT ANKLE 10 SPECI MINUTES OFFICE 29876 [facility] OUTPATI[facility] 2 2 T VISIT 15 MINUTES OFFICE 76911 [facility] OUT[facility] 2 2 [place] THO T VISIT CLINIC 25 PSC MINUTES HOSP[facility] [place] - 2 2 [facility] T OFFICE 43927 [facility] 2 2 T VISIT 25 MINUTES OFFICE 31476 [facility]MONISM [facility] 2 2 ONCOLOGY T VISIT ASSOCIATE 15 S MINUTES HOSPITAL [facility] - 2 2 [facility] OUTPATIEN HOSP T EMERGENCY 15704 [facility] 2 2 [facility]MONISM [facility] HOSP T VISIT HIGH/URGE NT SEVERITY HOSPITAL [facility] - 2 2 [facility] 55618 [facility] 2 2 T VISIT 25 MINUTES EMERGENCY 32783 [facility] 2 2 [facility] T VISIT HIGH/URGE NT SEVERITY HOSPITAL [facility] - 2 2 [facility] T EMERGENCY 39142 PING KOEHLER DEPT 2 2 MEDICAL PAT VISIT [employer], [facility] [employer] SEVERITY& THREAT [facility] CENTRAL - 2 2 [facility] INPATIENT HOSP EMERGENCY 14724 YNES DEPT 2 2 [facility] HIGH SEVERITY& THREAT [facility] OZIEL[facility] 2 2 [facility] - 2 2 [facility] 69792 [facility] 2 2 [facility] VISIT HIGH/URGE NT SEVERITY EMERGENCY 70281 ROBBY CANALES DEPT 2 2 EMERGENCY [facility] HIGH SEVERITY& THREAT [facility] OFFICE 95957 [facility] 2 2 [facility] T VISIT CLINIC 40 PSC MINUTES OFFICE 44078 [facility] 2 2 T VISIT 15 MINUTES OFFICE 57033 [facility] OUTPATIEN 2 2 T VISIT 15 MINUTES EMERGENCY 92387 ROBBY CANALES 2 2 EMERGENCY [facility] DEPARTMEN SERVICES T VISIT HIGH/URGE NT SEVERITY EMERGENCY 83600 [facility] 2 2 [facility] DEPARTMEN INC T VISIT LOW/MODER SEVERITY HOSPITAL [facility] - 2 2 [facility] OUTPATIEN INC T OFFICE 10876 YEYO KENNEY OUTPATIEN 2 2 MD RG VIOLET T NEW 60 PSC MINUTES OFFICE 56861 [facility] OUTPATIEN 2 2 T VISIT 15 MINUTES EMERGENCY 35060 ROBBY [facility] DEPT 2 2 EMERGENCY VISIT SERVICES HIGH SEVERITY& THREAT [facility] - 2 2 [facility] OUTPATIEN INC T EMERGENCY 99053 [place] 2 2 [facility] H[facility] DEPARTMEN INC T VISIT MODERATE SEVERITY [facility] [place] - 2 2 [facility] T OFFICE 84474 [facility] OUTPATIEN 2 2 T VISIT 25 MINUTES OFFICE 90381 [facility] OUTPATIEN 2 2 T VISIT 15 MINUTES [facility] [place] - 2 2 [facility]PITAL [place] - 2 2 [facility] T OFFICE 93183 [facility] OUTPATIEN 2 2 T VISIT 25 MINUTES [facility] [place] - 2 2 [facility] INPATIENT [facility]OSP[facility] OFFICE 16299 [facility] OUTPATIEN 2 2 T VISIT 15 MINUTES EMERGENCY 18060 [facility] 2 2 [facility] DEPARTMEN HOSP T VISIT LOW/MODER SEVERITY HOSPITAL [facility] - 2 2 [facility] OUTPATIEN HOSP T OFFICE 94339 [facility] OUTPATIEN 2 2 T VISIT 25 MINUTES EMERGENCY 99562 [facility] [place] 2 2 EMERGENCY DEPARTMEN SERVICES T VISIT HIGH/URGE NT SEVERITY HOSPITAL [facility] - 2 2 [facility] T EMERGENCY 68607 ROBBY GUAN DEPT 2 2 EMERGENCY MIGUEL VISIT SERVICES HIGH SEVERITY& THREAT [facility] EMERGENCY 18165 [facility] 2 2 [facility] H[facility] DEPARTMEN INC T VISIT HIGH/URGE NT SEVERITY OFFICE 00592 [facility] OUTPATIEN 2 2 T VISIT 15 MINUTES [facility] [place] - 1 1 [facility] H[facility]PITAL [place] - 1 1 [facility] OUTPATIEN [facility] T EMERGENCY 52991 HUMBERTO [place] 1 1 DEPARTMEN T VISIT HIGH/URGE NT SEVERITY EMERGENCY 37487 [facility] 1 1 [facility] DEPARTMEN INC T VISIT MODERATE SEVERITY OFFICE 76481 [facility] OUT[facility] 1 1 T VISIT 15 MINUTES OFFICE 80305 [facility] OUTPATI[facility] 1 1 T VISIT 15 MINUTES OFFICE 53860 [facility] 1 1 PAIN T VISIT MEDICIINE 15 PSC MINUTES [facility] [place] - 1 1 [facility] T OFFICE 28149 [facility] OUTPATIEN 1 1 T VISIT 15 MINUTES OFFICE 00744 [facility] OUT[facility] 1 1 PAIN KEYONNA T VISIT MEDICIINE 25 PSC MINUTES OFFICE 50082 [facility] OUTPATI[facility] 1 1 T VISIT 15 MINUTES OFFICE 96630 [facility] OUTPATIEN 1 1 T VISIT 15 MINUTES OFFICE 26192 [facility] OUTPATI[facility] 1 1 PAIN KEYONNA T VISIT MEDICIINE 40 PSC MINUTES OFFICE 84613 [facility] OUTPATI[facility] 1 1 PAIN [place]ON[place] T VISIT MEDICIINE 25 PSC MINUTES OFFICE 48244 [facility] 1 1 T VISIT 15 MINUTES OFFICE 40841 [facility] OUT[facility] 1 1 T VISIT 15 MINUTES OFFICE 89650 [facility] 1 1 T VISIT 25 MINUTES HOSPITAL [place] - 1 1 [facility] OUTPATIEN [facility] T OFFICE 56501 [facility] 1 1 T VISIT 15 MINUTES [facility] [place] - 1 1 [facility] T OFFICE 17506 [facility] OUTPATIEN 1 1 T VISIT 25 MINUTES OFFICE 75391 [facility] OUTPATIEN 1 1 T VISIT 25 MINUTES [facility] [place] - 1 1 [facility] T EMERGENCY 45472 [place] 1 1 [facility] T VISIT HIGH/URGE NT SEVERITY
--- OUTSIDE RECORDS SUMMARY | 2017-07-08 11:51 | External Medical Summary Rpt | CCD ---
Author Author , RADHA Organization RADHA Address Unknown Phone [email or web address] Care Team Providers Care Eligibility Technician Name Role Phone BELL VIOLET, BELL VIOLET Unavailable Unavailable [facility], [facility] Unavailable Unavailable [facility], [facility] Unavailable Unavailable RONALDO STEPHANY, RONALDO Unavailable Unavailable STEPHANY [facility] Unavailable Unavailable MEDICIINE P[facility], [facility] [employer] Unavailable Unavailable INC, [employer] Unavailable Unavailable INC, [employer] [facility] Unavailable Unavailable PSC, [facility] Unavailable Unavailable [facility] Unavailable Unavailable ASSOCIATES, [facility] & Unavailable Unavailable CRITICAL, [facility] VERDUGO KEYONNA, VERDUGO Unavailable Unavailable KEYONNA ALEX STA, ALEX Unavailable Unavailable STA BESSON, BESSON Unavailable Unavailable [facility] Unavailable Unavailable IMAGING L, [facility] IMAGING L [facility], [facility] Unavailable Unavailable PRACTICE L, [facility] BREAZEALE GRA, Unavailable Unavailable BREAZEALE GRA BUX ANJ, BUX ANJ Unavailable Unavailable JOHN CELINA IGN, Unavailable Unavailable JOHN CELINA IGN [facility], Unavailable Unavailable [facility] Unavailable Unavailable PHYS PSC, [...] [facility] Unavailable Unavailable [place], [facility] [place] SEAN G, ESTRADA G Unavailable Unavailable EVERMAN VIOLET, EVERMAN Unavailable Unavailable VIOLET BALL THO, Unavailable Unavailable BALL THO KLEIN ALI, KLEIN Unavailable Unavailable ALI VANCE SCO, VANCE Unavailable Unavailable SCO GAGUA IRI, GAGUA IRI Unavailable Unavailable FLORY MIGUEL, FLORY Unavailable Unavailable MIG[facility]EL [facility] Un[facility]available [facility], [facility] LINDER ISIDORO, LINDER ISIDORO Unavailable Unavailable ADONAY RHO, ADONAY Unavailable Unavailable RHO GUNDUMALLA GOP, Unavailable Unavailable GUNDUMALLA GOP OBREGON PALMIRA, OBREGON Unavailable Unavailable [facility] Unavailable Unavailable INC, [facility] Unavailable Unavailable HOSPITAL P, [facility] HARGROVE GUILHERME, HARGROVE GUILHERME Unavailable Unavailable LUIS RADHA, LUIS RADHA Unavailable Unavailable JIM KEITH, JIM KEITH Unavailable Unavailable [facility] Unavailable Unavailable @CTRL BAP, [facility]OS[facility] @CTRL [facility] Unavailable Unavailable SERVICES O, [facility] O HOUSMAN, HOUSMAN Unavailable Unavailable GOLDSMITH, GOLDSMITH Unavailable Unavailable ERNST FRANDY, ERNST FRANDY Unavailable Unavailable FRY JAMES, FRY Unavailable Unavailable JAMES RICARDO, RICARDO Unavailable Unavailable RICARDO JUS, RICARDO Unavailable Unavailable JUS TESHA RYA, TESHA RYA Unavailable Unavailable [facility] Unavailable Unavailable INC, [facility] Unavailable Unavailable INC, [facility] KEEDY FRANDY, KEEDY FRANDY Unavailable Unavailable JAIME SANDOVAL CHA Unavailable Unavailable KEITH SANDOVAL III KEITH, Unavailable Unavailable JAIME III KEITH [facility] Unavailable Unavailable [facility]IC[facility], [facility] Unavailable Unavailable IM[facility]ING [facility], [facility] Unavailable Unavailable MEDICAL G, [facility] MEDICAL G KSEIBI ANA, KSEIBI Unavailable Unavailable ANA [place] [...] LINDA [facility], LABORATORY [facility] Unavailable Unavailable AT [facility], [facility] Unavailable Unavailable LABORATO, [facility] Unavailable Unavailable LABORATO, [facility] VIJAY GARLAND MD, VIJAY Unavailable Unavailable DADA SANTOS, KELLY Unavailable Unavailable [facility] Unavailable Unavailable SERVICES, [facility], Unavailable Unavailable PLLC, [facility]available Unavailable OF [facility], [facility] ANKIT DENISE, ANKIT Unavailable Unavailable DENISE [facility], Unavailable Unavailable [facility], Unavailable Unavailable [facility] Unavailable Unavailable [facility] Unavailable Unavailable [facility], [facility] PSC PEPE NEVAREZ MD Unavailable Unavailable CONSULTING SRV, [...] Unavailable Unavailable OLGA SCALF, SCALF Unavailable Unavailable SCALF MOUSTAPHA, SCALF MOUSTAPHA Unavailable Unavailable SCHWARCZ THO, Unavailable Unavailable SCHWARCZ [...] Unavailable Unavailable PHYSICIAN SERVI, [facility], Unavailable Unavailable [facility], Unavailable Unavailable [facility] Unavailable Unavailable CLINIC, [facility] IRVIN RAY, IRVIN Unavailable Unavailable RAY SWINEY, SWINEY Unavailable Unavailable SWINEY PAT, SWINEY Unavailable Unavailable PAT TALANOW ROL, TALANOW Unavailable Unavailable ROL [facility], Unavailable Unavailable [facility] LUDIVINA III Rafael, LUDIVINA Unavailable Unavailable III J TRUE, TRUE Unavailable Unavailable [facility] Unavailable Unavailable [facility], [facility], Unavailable Unavailable [facility] WEHRMAN III OLGA, Unavailable Unavailable WEHRMAN III OLGA [facility] Unavailable Unavailable [facility] Unavailable Unavailable [facility] Unavailable Unavailable BART IV A, Unavailable Unavailable BART IV A BART IV ALL, Unavailable Unavailable BART IV ALL WILHELMUS SAMRA, Unavailable Unavailable WILHELMUS SAMRA TITA W, TITA W Unavailable Unavailable [facility], [facility] Unavailable Unavailable PHARMACY RAMOS MAT, Unavailable Unavailable RAMOS MAT CARINA MAT, CARINA MAT Unavailable Unavailable Purpose Continuity of Care Document - 02-17-2011 through 2016 Problems Code Diagnosis DOS Provider Status J449 CHRONIC 06-14-2017 [facility] OBSTRUCTIVE PULMONARY DISEASE UNS 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 06-03-2017 [facility] SINGLE PHYSICIAN THYROID PRACTICE L NODULE G250 ESSENTIAL 06-03-2017 [facility] TREMOR PHYSICIAN PRACTICE L G8929 OTHER 06-03-2017 [facility] CHRONIC PHYSICIAN PAIN PRACTICE L M4802 SPINAL 06-03-2017 [facility] STENOSIS PHYSICIAN CERVICAL PRACTICE L REGION Q71937 UNSPECIFIED 06-01-2017 [facility] CHRONIC PHYSICIANS, CONJUNCTIVI PLLC TIS BILATERAL I10 ESSENTIAL 06-01-2017 [facility] PRIMARY PHYSICIANS, HYPERTENSIO PLLC N J0100 ACUTE 06-01-2017 [facility] MAXILLARY PHYSICIANS, SINUSITIS PLLC UNSPECIFIED M542 CERVICALGIA 06-01-2017 [facility], PLLC N289 DISORDER OF 05-12-2017 [facility] UNSPECIFIED D6859 OTHER 04-22-2017 [facility] PRIMARY [place] X27193 OTHER LONG 04-22-2017 [facility] CURRENT HOSPITAL DRUG THERAPY R1012 LEFT UPPER 04-07-2017 [facility] [place] [facility] PAIN R109 UNSPECIFIED 04-07-2017 [facility] N189 CHRONIC 03-17-2017 [facility] [place] DISEASE [facility]IN[facility] PSC UNSPECIFIED N390 URINARY 03-17-2017 NEW TRACT [place] INFECTION [facility]INIC PSC SITE NOT SPECIFIED R609 EDEMA 03-08-2017 [facility] J159 UNSPECIFIED 12-17-2016 [facility] BACTERIAL PHYSICIAN PNEUMONIA PRACTICE L J181 LOBAR 12-14-2016 HOSPITAL PNEUMONIA MEDICINE UNSPECIFIED SERVICES O ORGANISM J441 CHRONIC 12-14-2016 HOSPITAL OBSTRUCTIVE MEDICINE PULMONARY SERVICES O DZ W/EXACERBAT ION N179 ACUTE 12-14-2016 [facility] KIDNEY MEDICINE FAILURE SERVICES O UNSPECIFIED I129 HYPERTENSIV 12-12-2016 [facility] E CKD N EMERGENCY W/STAGE 1-4 PHYS CKD OR UNS CKD J189 PNEUMONIA 12-12-2016 [facility] UNSPECIFIED N EMERGENCY ORGANISM PHYS R0602 SHORTNESS 12-12-2016 [facility] OF BREATH N EMERGENCY PHYS R51 HEADACHE 12-12-2016 [facility] [place] RADIOLOGY R918 OTHER 12-12-2016 [facility] [place] NONSPECIFIC RADIOLOGY ABNORMAL FINDING OF LUNG FIELD C649 MALIGNANT 12-07-2016 NEW NEOPLASM [facility] PSC EXCEPT RENL PELVIS G4733 OBSTRUCTIVE 12-07-2016 NEW SLEEP [facility]A [facility]ULT [facility]INIC PSC PEDIATRIC R351 NOCTURIA 12-07-2016 NEW [facility] PSC Z8546 PERSONAL 12-07-2016 NEW HISTORY [facility] MALIGNANT CLINIC PSC NEOPLASM OF PROSTATE Z8551 PERSONAL 12-07-2016 NEW HISTORY [facility] MALIGNANT CLINIC PSC NEOPLASM OF BLADDER D61654 PAIN IN 12-01-2016 [place] LEFT MEDICAL SHOULDER IMAGING ASS T96640 OTHER 12-01-2016 [place] CERVICAL MEDICAL DISC IMAGING ASS DEGENERATIO N AT C5-C6 LEVEL N183 CHRONIC 11-22-2016 [facility] DISEASE OF [place] STAGE 3 MODERATE N3943 POST-VOID 11-22-2016 [facility] DRIBBLING ASSOCIATES OF [place] N401 BENIGN 11-22-2016 [facility] PROSTATIC ASSOCIATES HYPERPLASIA OF [place] LW URINARY TRACT SX E119 TYPE 2 11-17-2016 [facility] P WITHOUT COMPLICATIO NS M791 MYALGIA 11-17-2016 [facility], [facility] S13638 PAIN IN 11-17-2016 [facility] LEFT ARM PHYSICIANS, [facility] Z794 FISH AGENT 11-17-2016 [facility] CURRENT USE [facility] INSULIN HOSPITAL P M7989 OTHER 11-15-2016 [facility] SPECIFIED MEM HOSP SOFT TISSUE INC DISORDERS Z720 TOBACCO USE 11-15-2016 [place] [facility] C26861 PERSONAL 11-15-2016 [place] HISTORY OT MEDICAL VENOUS IMAGING ASS THROMBOSIS& EMBOLISM E039 HYPOTHYROID 10-29-2016 [facility] ISM LINDA UNSPECIFIED HOLDINGS G894 CHRONIC 10-29-2016 [place] PAIN PHYSICIAN SYNDROME PRACTICE L C61 MALIGNANT 10-28-2016 NEW NEOPLASM OF [facility] PROSTATE CLINIC PSC K219 GASTRO-ESOP 10-15-2016 [facility] H REFLUX MEM HOSP DISEASE INC WITHOUT ESOPHAGITIS M545 LOW BACK 10-15-2016 [facility] PAIN MEM HOS[facility] INC R319 HEMATURIA 10-15-2016 [facility] UNSPECIFIED MEM HOSP INC Z721 10-15-2016 [facility] INC Z7901 FCI 10-15-2016 [facility] CURRENT USE MEM HOSP OF INC ANTICOAGULA NTS Z791 FCI 10-15-2016 [facility] CURR MEM HOS[facility] NON-STEROID INC AL&ANTI-INF LAMMATORIES L0211 CUTANEOUS 06-23-2016 [facility] ABSCESS OF MEM HOSP NECK INC C641 MALIGNANT 06-01-2016 NEPHROLOGY NEOPLASM RT ASSOCIATES KIDNEY OF [place] EXCEPT RENAL PELVIS C679 MALIGNANT 06-01-2016 NEPHROLOGY NEOPLASM OF ASSOCIATES BLADDER OF [place] UNSPECIFIED R079 CHEST PAIN 03-11-2016 ST [facility] UNSPECIFIED EAST R9431 ABNORMAL 03-11-2016 [facility] IOGRAM M4722 OT 03-04-2016 [facility] ANA SPONDYLOSIS W/RADICULOP ATHY CERVICAL REGION M4727 OTH 03-04-2016 [facility] ANA SPONDYLOSIS W/RADICULOP ATHY LUMBOSACRAL RGN E042 NONTOXIC 02-09-2016 [facility] MULTINODULA STICS INC R GOITER J341 CYST AND 02-09-2016 NEURODIAGNO MUCOCELE OF STICS INC NOSE AND NASAL SINUS J342 DEVIATED 02-09-2016 [facility] NASAL STICS INC SEPTUM R9082 WHITE 02-09-2016 [facility] MATTER STICS INC DISEASE UNSPECIFIED M11066 PRESENCE OF 02-03-2016 [place] OTHER HEALTH VASCULAR MEDICAL G IMPLANTS AND GRAFTS D3002 BENIGN 01-28-2016 [facility] NEOPLASM OF REGIONAL LEFT IMAGING L KIDNEY Z69009J OTHER [facility] 01-28-2016 [facility] COMP REGIONAL UMBRELLA IMAGING L DEVICE INITIAL ENCNTR J984 OTHER 12-30-2015 [facility] DISORDERS HEALTH OF [facility] R0600 DYSPNEA 12-30-2015 [facility] UNSPECIFIED HEALTH [facility] 4019 UNSPECIFIED 05-22-2015 [facility] [place] ESSENTIAL HYPERT[place]SIO CONSULTING N SRV 81319 PRECORDIAL 05-22-2015 [facility] [place] PAIN CONSULTING SRV 0539 HERPES 05-20-2015 [facility] ZOSTER [facility] WITHOUT INC MENTION OF COMPLICATIO N 496 CHRONIC 05-20-2015 [facility] AIRWAY [facility]OS[facility] OBSTRUCTION INC NEC 7823 EDEMA 05-20-2015 [facility] INC 55254 SHORTNESS 05-20-2015 [facility] OF BREATH MEM HOS[facility] INC 79183 DIAB W/O 05-12-2015 [facility] COMP TYPE N PHYSICIAN II/UNS NOT SERVI STATED UNCNTRL 24607 OBESITY, 05-12-2015 [facility] UNSPECIFIED N PHYSICIAN SERVI 94278 OBSTRUCTIVE 05-12-2015 [facility] CHRONIC N PHYSICIAN BRONCHITIS SERVI WITH EXACERBATIO N 25870 OTHER 05-12-2015 [facility] ABNORMAL N PHYSICIAN GLUCOSE SERVI 69326 HYPERTROPHY 04-24-2015 NEW PROSTATE [place] W/O UR OBST CLINIC PSC & OTH LUTS V1051 PERSONAL 04-24-2015 [facility] PSC NEOPLASM BLADDER 185 MALIGNANT 04-10-2015 NEW NEOPLASM OF [facility] PROSTATE CLINIC PSC 1889 MALIGNANT 04-10-2015 NEW NEOPLASM OF [facility] BLADDER CLINIC PSC PART UNSPECIFIED 1890 MALIGNANT 04-10-2015 NEW NEOPLASM OF [facility] KIDNEY [facility]INIC PSC EXCEPT PELVIS 01587 HYPERTROPHY 04-10-2015 NEW PROSTATE [place] W/UR OBST & CLINIC PSC OTH LUTS 7226 DEGENERATIO 04-01-2015 [facility] N TECHNOLOGIE INTERVERTEB S INC RAL DISC SITE UNSPEC 89326 POSTLAMINEC 04-01-2015 [facility] HOBSON [facility] SYNDROME INC CERVICAL REGION V571 OTHER 04-01-2015 [facility] MEM HOSP THERAPY INC 29963 DEGEN 03-24-2015 VIJAY GARLAND LUMBAR/LUMB OSACRAL INTERVERTEB RAL DISC 68849 POSTLAMINEC 03-24-2015 VIJAY HOBSON MD SYNDROME LUMBAR REGION 7244 THORACIC/ELEONORA 03-24-2015 VIJAY BUSTOS MD NEURITIS/RA DICULITIS UNSPEC 7231 CERVICALGIA 02-24-2015 [facility] 7840 HEADACHE 02-24-2015 [facility] 7224 DEGENERATIO 01-16-2015 NEURODIAGNO N OF STICS INC CERVICAL INTERVERTEB RAL DISC 76479 MIGRAINE 12-03-2014 [facility] W/O HOSPITAL INTRACTBL W/STATUS MIGRAINOSUS 4010 ESSENTIAL 12-03-2014 [facility] N, MALIGNANT 5849 ACUTE 12-03-2014 [place] [facility] FAILURE UNSPECIFIED 7820 DISTURBANCE 12-03-[address] [facility] SENSATION 70153 NAUSEA WITH 12-03-2014 [facility] HOSPITAL V1255 PERSONAL 12-03-2014 [facility] ALICE OF HOSPITAL PULMONARY EMBOLISM V4573 ACQUIRED 12-03-2014 [facility] KIDNEY V1046 PERSONAL 11-26-2014 NEW HISTORY [facility] MALIGNANT CLINIC PSC NEOPLASM PROSTATE V1052 PERSONAL 11-26-2014 NEW HISTORY OF [facility] MALIGNANT CLINIC PSC NEOPLASM OF KIDNEY 0010 CHOLERA DUE 10-28-2014 [facility] TO [facility]IN[facility] CHOL[facility] LABORATO 7242 LUMBAGO 08-25-2012 [facility] 15065 CHEST PAIN 08-25-2012 [facility] UNSPECIFIED V5861 LONG-TERM 08-25-2012 [facility] (CURRENT) PHYSICIANS USE OF LA ANTICOAGULA NTS 47008 OBSTRUCTIVE 08-09-2012 [facility] SLEEP HOME APNEA MEDICAL EQUIPME 5119 UNSPECIFIED 08-09-2012 [facility] PLEURAL HOME EFFUSION MEDICAL EQUIPME 2270 BENIGN 08-04-2012 JIM KEITH NEOPLASM OF ADRENAL GLAND 15621 HEMATURIA 08-04-2012 JIM KEITH UNSPECIFIED 6822 CELLULITIS 08-04-2012 [facility] AND ABSCESS [facility]OS[facility] 7078 CHRONIC 08-04-2012 [facility] ULCER OF [facility] OTHER HOSP SPECIFIED SITE 20975 OTHER 08-04-2012 [facility] POSTOPERATI [facility] VE HOSP INFECTION NEC 77305 DIAB W/O 08-03-2012 [facility] COMP TYPE I HOME [JUV] NOT MEDICAL STATED EQUIPME UNCNTRL 24760 OTHER 07-27-2012 [facility] CHRONIC PAIN 35633 INTESTINAL 06-30-2012 [facility] INFECTIONS EMERGENCY DUE SERVICES CLOSTRIDIUM DIFFICILE 5589 OTH&UNSPEC 06-30-2012 [facility] NONINFECTIO MEM HOSP US INC GASTROENTER ITIS&COLITI S 5699 UNSPECIFIED 06-30-2012 [place] DISORDER MEDICAL OF IMAGING ASS INTESTINE 5920 CALCULUS OF 06-30-2012 [place] KIDNEY MEDICAL IM[facility]ING ASS 90796 NAUSEA 06-30-2012 [facility] ALONE [facility] SERVICES 72160 DIARRHEA 06-30-2012 [facility] 7891 HEPATOMEGAL 06-30-2012 [place] Y MEDICAL IM[facility]ING ASS 88571 OTHER 06-27-2012 [facility] MALAISE AND PHYSICIANS FATIGUE LA 2859 UNSPECIFIED 06-16-2012 [facility] ANEMIA 586 UNSPECIFIED 06-16-2012 [facility] RENAL FAILURE V0481 NEED 06-16-2012 [facility] PROPHYLACTI C VACCINATION &INOCULATIO N FLU 8795 OPEN WOUND 06-14-2012 [facility] OF THERAPEUTIC ABDOMINAL SER INC WALL LATERAL COMPLICATED 77240 NON-HEALING 06-14-2012 [facility] SURGICAL THERAPEUTIC WOUND NEC SER INC 16414 DIAB W/O 06-11-2012 [facility] MENTION N EMERGENCY COMP TYPE PHYS II/UNS TYPE UNCNTRL 6829 CELLULITIS 06-11-2012 [facility] [place] AND ABSCESS RADIOLOGY OF UNSPECIFIED SITE 9642 POISONING 06-11-2012 [place] BY INPATIENT ANTICOAGULA MEDICINE NTS 5939 UNSPECIFIED 06-02-2012 [facility] DISORDER OF KIDNEY AND URETER 24904 ACUTE 05-25-2012 [facility] FAILURE PULMONARY 26052 OTHER 05-22-2012 [facility] [place] NONSPECIFIC RADIOLOGY ABNORMAL FINDING OF LUNG FIELD 4264 RIGHT 05-21-2012 NEW BUNDLE [facility] BLOCK 2762 ACIDOSIS 05-20-2012 [facility] PULMONARY 4011 ESSENTIAL 05-20-2012 [place] HYPERTENSIO INPATIENT N, BENIGN MEDICINE 83476 FEVER 05-20-2012 [facility] PULMONARY 5180 PULMONARY 05-19-2012 [facility] [place] COLLAPSE RADIOLOGY 11966 SEPSIS 05-19-2012 [facility] PULMONARY 49858 OTHER ACUTE 05-18-2012 [facility]IA ASSOCIATES POSTOPERATI [facility] VE PAIN V5881 FITTING AND 05-18-2012 [facility] [place] ADJUSTMENT RADIOLOGY OF VASCULAR CATHETER 0389 UNSPECIFIED 05-17-2012 [facility] SEPTICEMIA [facility] 79425 ENCEPHALOPA 05-17-2012 [facility] UNSPECIFIED 22850 OTHER 05-17-2012 NEW SPECIFIED [facility] CARDIAC CLINIC [facility] DYSRHYTHMIA S 5845 ACUTE 05-17-2012 [facility] KIDNEY [facility] FAILURE W/LESION TUBULAR NECROSIS 5932 ACQUIRED 05-17-2012 [facility] CYST OF [facility] KIDNEY 02573 SEVERE 05-17-2012 [facility] SEPSIS [facility] 9975 URINARY 05-17-2012 [facility] COMPLICATIO [facility] NS NEC 5969 UNSPECIFIED 05-16-2012 NEW DISORDER [facility] OF BLADDER CLINIC PSC V1251 PERSONAL 05-16-2012 [facility] HISTORY, THO VENOUS THROMBOSIS AND EMBOLISM V4589 OTHER 05-16-2012 [facility] POSTSURGICA THO L STATUS OTHER V7283 OTHER 05-16-2012 [facility] [place] SPECIFIED RADIOLOGY PRE-OPERATI VE EXAMINATION V7284 UNSPECIFIED 05-16-2012 NEW [facility] PRE-OPERATI CLINIC [facility] VE EXAMINATION 29764 NEOPLASM OF 04-24-2012 [facility] UNCERTAIN FOOT & BEHAVIOR OF ANKLE SPECI KIDNEY&URET ER 1888 MALIGNANT 04-13-2012 NEW NEOPLASM [facility] OTHER CLINIC PSC SPECIFIED SITES BLADDER 16718 OTHER 04-06-2012 [facility] PULMONARY EMBOLISM AND INFARCTION 14929 AC JOE 04-06-2012 [facility] [facility] [employer] THROMB HOLDINGS UNSPEC DEEP VES LOWER EXT V5869 LONG-TERM 04-06-2012 [facility] (CURRENT[facility] USE OF HOSPITAL OTHER MEDICATIONS V711 OBSERVATION 04-06-2012 [facility] [place] FOR RADIOLOGY SUSPECTED MALIGNANT NEOPLASM 4168 OTHER 04-03-2012 [facility] CHRONIC [facility] PULMONARY HOSP HEART DISEASES 4280 CONGESTIVE 04-03-2012 [facility] HEART CARDIOLOGY FAILURE AT [facility] UNSPECIFIED 4293 CARDIOMEGAL 04-03-2012 [facility] Y [facility] H[facility]P 4539 EMBOLISM 04-03-2012 [facility] AND ONCOLOGY THROMBOSIS ASSOCIATES OF UNSPECIFIED SITE 24831 OTHER 03-29-2012 [facility] DYSPNEA AND EMERGENCY [place] [address] ABNORMAL 03-29-2012 [facility] COAGULATION [facility] PROFILE HOSP 7245 UNSPECIFIED 03-20-2012 [facility] 7295 PAIN IN 03-20-2012 [facility] TISSUES OF GROUP, PLLC LIMB 89059 ABDOMINAL 03-20-2012 [facility] [place] PAIN OTHER RADIOLOGY SPECIFIED SITE 5859 CHRONIC 03-14-2012 HOSP KIDNEY MEDICINE DISEASE SERV @CTRL UNSPECIFIED BAP 27973 HTN CKD UNS 03-08-2012 [facility] W/CKD [facility] STAGE I HOSP THRU STAGE IV/UNS 4162 CHRONIC 03-08-2012 [facility] PULMONARY PULMONARY & EMBOLISM CRITICAL 4242 TRICUSPID 03-08-2012 [facility] VALVE CARDIOLOGY DISORDERS AT [facility] SPEC NONRHEUMATI C 80072 CHRN VNUS 03-08-2012 [facility] THROMB DEEP ASSOCIATES VES PROX LOWR EXTREM 94968 OBSTRUCTIVE 03-08-2012 [facility] CHRONIC PULMONARY & BRONCHITIS CRITICAL WITHOUT EXACERBAT 82170 CHRONIC 03-08-2012 [facility] RESPIRATORY [facility] FAILURE HOSP 60065 HYPOXEMIA 03-08-2012 [facility] PULMONARY & CRITICAL V462 DEPENDENCE 03-08-2012 [facility] ON MACHINE [facility] FOR HOSP SUPPLEMENTA L OXYGEN V8541 BODY MASS 03-08-2012 [facility] INDEX [facility] 40.0-44.9 HOSP ADULT 486 PNEUMONIA, 03-02-2012 [facility]GANISM EMERGENCY UNSPECIFIED SERVICES 5183 PULMONARY 03-02-2012 [place] EOSINOPHILI MEDICAL A IMAGING ASS 45875 OTHER 03-02-2012 [place] DISEASES OF MEDICAL LUNG NOT IMAGING ASS ELSEWHERE CLASSIFIED 7969 OTHER 03-02-2012 LABORATORY NONSPECIFIC [facility] OF ABNORMAL LINDA H FINDING 7238 OTHER 02-10-2012 [facility] SYNDROMES AFFECTING CERVICAL REGION 4619 ACUTE 02-09-2012 [facility] SINUSITIS, EMERGENCY UNSPECIFIED SERVICES 7804 DIZZINESS 01-29-2012 [facility] GIDDINESS 90646 OTHER 01-28-2012 [place] DISEASES OF MEDICAL NASAL IMAGING ASS CAVITY AND SINUSES 7842 SWELLING 01-28-2012 [place] MASS OR MEDICAL LUMP IN IMAGING ASS HEAD AND NECK 29899 ATRIAL 01-11-2012 [facility] FIBRILLATIO [facility] HOSPITAL 4519 PHLEBITIS&T 01-10-2012 [facility] CARDIOLOGY ITIS OF CLINIC UNSPECIFIED SITE 4536 VENOUS EMBO 01-10-2012 [facility] VES LOWR EXTREM 90782 UNSPECIFIED 12-28-2011 [facility]IASTOL[facility] HEART [facility] FAILURE 7850 UNSPECIFIED 12-28-2011 [facility] TACHYCARDIA SERVICES 3320 PARALYSIS 12-17-2011 [facility] AGITANS 2724 OTHER AND 11-30-2011 [facility]NSPECIFIED [facility] HYPERLIPIDE GONZÁLEZ 78419 DEHYDRATION 11-30-2011 [facility] 490 BRONCHITIS 11-30-2011 [facility] NOT [facility] SPECIFIED [facility] ACUTE OR CHRONIC V1089 PERSONAL 11-30-2011 [facility] HISTORY [facility] NEOPLASM OTHER SITE V5866 LONG-TERM 11-30-2011 [facility] 462 ACUTE 11-29-2011 [facility] PHARYNGITIS 4871 INFLUENZA 11-29-2011 [facility] WITH OTHER RESPIRATORY MANIFESTATI ONS 37245 MUSCLE 11-29-2011 [facility] WEAKNESS EMERGENCY (GENERALIZE SERVICES D) 4660 ACUTE 11-18-2011 [facility] BRONCHITIS 32859 ASTHMA, 11-08-2011 [facility] UNSPECIFIED EMERGENCY , SERVICES UNSPECIFIED STATUS V1559 PERSONAL 09-24-2011 [facility] HISTORY OF COMM[facility]ITY OTHER HOSPITAL INJURY 34182 UNSPECIFIED 09-19-2011 [facility] RETENTION OF URINE 3384 CHRONIC 07-29-2011 [facility] SYNDROME MEDICIINE PSC 3538 OTHER NERVE 07-29-2011 [facility] ROOT AND PAIN PLEXUS MEDICIINE DISORDERS PSC 7210 CERVICAL 07-29-2011 [facility] SPONDYLOSIS PAIN WITHOUT MEDICIINE MYELOPATHY PSC 7232 CERVICOCRAN 07-29-2011 [facility] IAL PAIN SYNDROME MEDICIINE PSC 2449 UNSPECIFIED 07-26-2011 [facility] ISM 5990 URINARY 07-26-2011 [facility] TRACT [facility] INFECTION HOSPITAL SITE NOT SPECIFIED 7241 PAIN IN 07-26-2011 [facility] [place] THORACIC RADIOLOGY SPINE 05319 OTHER CHEST 07-26-2011 [facility] 7810 ABNORMAL 07-20-2011 [facility] INVOLUNTARY MOVEMENTS 7213 LUMBOSACRAL 04-28-2011 [facility] SPONDYLOSIS MEDICIINE WITHOUT PSC MYELOPATHY 7220 DISPLCMT 04-28-2011 [facility] CERV PAIN INTERVERT MEDICIINE DISC PSC WITHOUT MYELOPATHY 7246 DISORDERS 04-28-2011 [facility] OF SACRUM PAIN MEDICIINE PSC 75193 ABDOMINAL 03-16-2011 NEURODIAGNO PAIN, STICPSC GENERALIZED V7644 SPECIAL 03-04-2011 [facility] SCREENING [facility] MALIGNA[facility] HOLDING NEOPLASM OF PROSTATE 82858 ABDOMINAL 02-26-2011 [facility] PAIN, UNSPECIFIED SITE 36384 ABDOMINAL 02-26-2011 [place] [facility] RIGHT [facility] UPPER HOSPITAL QUADRANT 44673 [facility]AL 02-[facility]2011 [facility] PERIUMBILIC [facility] 8628 INJR MX&UNS 02-26-2011 [facility] OPN WND IN CAV 9269 CRUSHING 02-26-2011 [facility] INJURY OF [facility] UNSPECIFIED HOSPITAL SITE OF TRUNK 6029 UNSPECIFIED 02-18-2011 [facility] DISORDER OF PROSTATE 1560 MALIGNANT 02-17-2011 [facility] NE[facility] OF [facility] HOSPITAL GALLBLADDER 1980 SECONDARY 02-17-2011 [facility]IG[facility] NEOPLASM OF HOSPITAL KIDNEY 7862 COUGH 02-17-2011 [facility] Medications Na ND Rx Da Fi Fi Am Da Di Ph RX Ph St me C No te ll ll ou ys ag ar # ys at rm s nt no ma ic us Or Da si cy ia de te s n re d DI 00 10 10 0 60 30 [...] 0 30 30 EA 24 WE Ac ND 25 -0 -[address] ti [place] 30 4- 4- 00 SI 15 ve OL 90 20 20 DE MU AM 11 11 11 RR 1 PH AY 0. AR D 5 MA MG CY TA OF BL ET CY NT HI AN A Procedures Procedure DOS Code Location Performer Comment PRTBLE E0431 [facility] GASEOUS 7 O2 SYS RENT; FLWMTR HUMIDFR&M ASK O2 CONC 1 E1390 [facility] DEL PORT 7 85%/>02 CONC AT PRS FLW RATE O2 CONC 1 E1390 [facility] DEL PORT 7 85%/>02 CONC AT PRS FLW RATE PRTBLE E0431 [facility] GASEOUS 7 O2 SYS RENT; [place]WM[place]IDFR&[place] [address] [place] TRUE ABDOMEN & 7 MEDICAL PELVIS SERV W/O FOUNDATIO CONTRAST N MATERIAL PROTHROMB 35255 [facility] IN TIME 7 [facility] DRUG TEST [address] PR[address] 7 [facility] CHEMISTRY ANALYZERS PRTBLE E0431 [facility] GASEOUS 7 O2 SYS RENT; FLWMTR HUMIDFR&M ASK O2 CONC 1 E1390 [facility] DEL PORT 7 85%/>02 CONC AT [facility] [address] [facility] [place] SCALF ABDOMEN & 7 RADIOLOGY PELVIS W/O CONTRAST MATERIAL URNLS DIP 14890 STEPHANIE SILVA [address] [place] [address] STICK/TAB CLINIC LET RGNT PSC AUTO W/O MICROSCOP Y CULTURE 13956 [facility] BACTERIAL 7 CLINIC CLINIC LABORATO LABORATO QUANTTATI VE COLONY COUNT URINE O2 CONC 1 E1390 [facility] DEL PORT 7 85%/>02 CONC AT [facility] FLW RATE PRTBLE E0431 [facility] GASEOUS 7 O2 SYS RENT; FLWMTR HUMIDFR&M ASK DRUG TST G0483 [facility] DEFINITV [address] ID [facility] HOLDINGS METH P DAY 22/MORE DR CL DRUG TEST 76777 [facility] PRSMV 7 [facility] LINDA INSTRMNT [facility] HOLDINGS CHEMISTRY ANALYZERS PROTHROMB 94450 [facility] IN TIME 7 LINDA LINDA [facility] HOLDINGS COLLECTIO 50843 YNES Ma VENOUS 7 PHYSICIAN BLOOD PRACTICE VENIPUNCT L URE PROTHROMB 03-28-201 46718 [facility] IN TIME 7 LINDA LINDA [facility] INITIAL [address]298 [facility] 7 MEDICINE CARE/DAY [place] [address] [place] [address] [facility] [place] SCALF HEAD/BRAI 7 RADIOLOGY N W/O CONTRAST MATERIAL RADIOLOGI 83162 [facility] [place] SCALF C 7 RADIOLOGY EXAMINATI ON CHEST SINGLE VIEW FRONTAL ECG 82188 [facility] ROUTINE 7 JEROD ECG EMERGENCY W/LEAST PHYS 12 LDS I&R ONLY RADEX 63352 [place] SPINE 7 MEDICAL CERVICAL IMAGING 2 OR 3 ASS VIEWS RADEX 38665 [place] SHOULDER 7 MEDICAL COMPLETE IMAGING MINIMUM 2 ASS VIEWS ECG 77295 [facility] VERDUGO ROUTINE 7 [facility] W/LEAST P 12 LDS I&R ONLY DUP-SCAN 82255 [place] XTR VEINS 7 MEDICAL IMAGING UNILATERA ASS L/LIMITED STUDY PROTHROMB 16951 [facility] IN TIME 7 [facility] LINDA [facility] HOLDINGS PROTHROMB 07821 [facility] IN TIME 7 [facility] [place] [address] [facility] THYROID 7 [facility] STIMULATI HOLDINGS HOLDINGS NG HORMONE TSH COLLECTIO 54863 YNES Ma VENOUS 7 PHYSICIAN BLOOD [place] [address] [facility] THYROXINE 7 [facility] TOTAL HOLDINGS HOLDINGS URNLS DIP 97978 STEPHANIE SILVA 7 [place] STICK/TAB CLINIC LET RGNT PSC AUTO W/O MICROSCOP Y BLOOD [address] COUNT 7 [facility] COMPLETE INC INC AUTO&AUTO DIFRNTL WBC URNLS DIP [address] 7 [facility] STICK/TAB INC INC LET REAGENT AUTO MICROSCOP Y COMPREHEN [address] SIVE 7 [facility] METABOLIC INC INC PANEL PROTHROMB [address] IN TIME 7 [place] [address] LIPASE 7 [place] [address] ABDOMEN & 7 [facility] PELVIS INC INC W/O CONTRAST MATERIAL CYSTOURET 23060 [facility] HROSCOPY 6 [facility] PSC PSC THERAPEUT 42715 [place] 1/> 6 [facility] HOSP[facility] EACH 15 MIN EXERCISES E-STIM G0283 [place] 1/> AREAS 6 [facility] HOSP[facility] WND CARE PART TX PLAN E-STIM G0283 [place] 1/> AREAS 6 [facility] HOSPITAL WND CARE PART TX PLAN THERAPEUT 06601 [place] 1/> 6 [facility] HOSP[facility] EACH 15 MIN EXERCISES THERAPEUT 17664 [place] 1/> 6 [facility]OSP[facility] EACH 15 MIN EXERCISES E-STIM G0283 [place] 1/> AREAS 6 [facility] HOSPITAL WND CARE PART TX PLAN E-STIM G0283 [place] 1/> AREAS 6 [facility] HOSPITAL WND CARE PART TX PLAN PHYSICAL 94875 [place] THERAPY 6 [facility] N COLLECTIO [address] N VENOUS 6 [facility] BLOOD INC INC VENIPUNCT URE THYROID [address] HORM 6 [facility] UPTK/THYR INC INC OID HORMONE BINDING RATIO BLOOD [address] COUNT 6 [facility] COMPLETE INC INC AUTO&AUTO DIFRNTL WBC COMPREHEN [address] SIVE 6 [facility] [address] THYROID 6 [facility] STIMULATI [place] [address] THYROXINE 6 [facility] TOTAL INC INC DRAINAGE 7K45ENE ARIANA ARIANA OF NECK 6 [facility] SKIN INC INC EXTERNAL US SOFT 11029 [facility] TISSUE 6 N N HEAD & COMMUNTIY COMMUNTIY NECK REAL HOSPITA HOSPITA TIME IMGE DOCM THROMBOPL 40330 [facility] ASTIN 6 N N TIME COMMUNTIY COMMUNTIY PARTIAL HOSPITA HOSPITA PLASMA/[place] [address] [facility] MAXILLOFA 6 N N CIAL W/O COMMUNTIY COMMUNTIY CONTRAST HOSPITA HOSPITA MATERIAL PROTHROMB 99358 [facility] IN TIME 6 N N COMMUNTIY COMMUNTIY HOSPITA HOSPITA BLOOD 03960 [facility] COUNT 6 N N COMPLETE COMMUNTIY COMMUNTIY AUTO&AUTO HOSPITA HOSPITA DIFRNTL WBC COLLECTIO 99080 [facility] N VENOUS 6 N N BLOOD COMMUNTIY COMMUNTIY VENIPUNCT HOSPITA HOSPITA URE INJECTION J2785 [facility] 6 [facility] MG CV STRS 82879 [facility] TST 6 [facility] XERS&/OR RX CONT ECG TRCG ONLY TECHNETIU A9502 [facility] TC-[address]M [address] [place] [address] TETROFOSM IN DX PER STUDY DOSE MYOCARDIA 48957 [facility] SPECT 6 [facility] MULTIPLE STUDIES MRI ORBIT 73735 NEURODIAG SUN [place] FACE & 6 NOSTICS NECK W/O INC & W/CONTRAS T MATRL US SOFT 77028 NEURODIAG [place] TISSUE 6 NOSTICS HEAD & [place] [address] BLUESSM REHABE ABDOMEN & 6 REGIONAL LD IV ALL PELVIS IMAGING W/O L CONTRST 1/> BODY RE RADIOLOGI 84924 [facility] C EXAM 6 [facility] CHEST 2 [facility] VIEWS FRONTAL&L ATERAL XENON A9558 [facility] XE-133 6 [facility] GAS [facility] DIAGNOSTI C PER 10 [place] [address] [facility] TRACT 6 [facility] W/WO DELAYED IMAGES W/KUB TECHNETIU A9540 [facility] M TC-[address]M [address] [place] [address] MAA DX [facility] STDY DOSE UP TO 10 MCI PULMONARY 10339 [facility] TA[facility] [address] [place] [address] VENTILATI [facility] ON & PERFUSION IMAGING NEBULIZER E0570 [facility] WITH 6 COMPRESSO R ECG 81621 PEPE NEVAREZ NEVAREZ PEPE ROUTINE 5 MD ECG CONSULTIN W/LEAST G SRV 12 LDS W/I&R ECHO 64244 PEPE NEVAREZ NEVAREZ PEPE TTHRC R-T 5 2D CONSULTIN W/WOM-MOD G SRV E COMPL SPEC&COLR D ECG [address] ROUTINE 5 [facility] ECG INC INC W/LEAST 12 LDS TRCG ONLY W/O I&R BLOOD [address] COUNT 5 [facility] COMPLETE INC INC AUTO&AUTO DIFRNTL WBC NATRIURET [address] IC 5 [facility] [place] [address] TROPONIN 5 [facility] QUANTITAT INC INC JOANIE PROTHROMB [address] IN TIME 5 [facility] INC INC CREATINE [address] KINASE 5 [facility] TOTAL INC INC CREATINE [address] KINASE MB 5 [facility] FRACTION INC INC ONLY COMPREHEN [address] SIVE 5 [facility] METABOLIC INC INC PANEL RADIOLOGI 05445 ARIANA Daniel EXAM 5 [facility] CHEST 2 INC INC VIEWS FRONTAL&L ATERAL RADIOLOGI [address] C 5 [facility] EXAMINATI INC INC ON CHEST [place] [facility] [address] [facility] DISCHARGE 5 JEROD PATRICK DAY PHYSICIAN MANAGEMEN SERVI T > 30 MIN SBSQ 50179 [facility] 5 JEROD CELINA IGN CARE/DAY PHYSICIAN 25 SERVI MINUTES SBSQ 91707 [facility] 5 JEROD CELINA IGN CARE/DAY PHYSICIAN 25 SERVI MINUTES INITIAL 46921 [facility] 5 JEROD A GOP CARE/DAY PHYSICIAN 70 SERVI MINUTES ECG 27636 [facility] 5 JEROD A GOP ECG PHYSICIAN W/LEAST SERVI 12 LDS I&R ONLY CYSTOURET 17377 STEPHANIE SILVA HROSCOPY 5 [facility] [facility] PSC APPL [address] MODALITY 5 [facility] 1/> AREAS INC INC ELEC STIMJ UNATTENDE D PHYSICAL [address] THERAPY 5 [facility] EVALUATIO INC INC N APPLICATI [address] ON 5 [facility] MODALITY INC INC 1/> AREAS HOT/COLD PACKS APPL [address] MODALITY 5 [facility] 1/> AREAS INC INC ULTRASOUN D EA 15 MIN URNLS DIP 87395 STEPHANIE RICARDO 5 [place] [facility] STICK/TAB CLINIC LET RGNT PSC AUTO W/O MICROSCOP Y APPL [address] MODALITY 5 [facility] 1/> AREAS INC INC ELEC STIMJ UNATTENDE D THERAPEUT [address] IC PX 1/> 5 [facility] AREAS INC INC EACH 15 MIN EXERCISES APPL [address] MODALITY 5 [facility] 1/> AREAS INC INC ULTRASOUN D EA 15 MIN [address]ICATI [address] ON 5 [facility] MODALITY INC INC 1/> AREAS HOT/COLD PACKS APPLICATI [address] ON 5 [facility] MODALITY INC INC 1/> AREAS HOT/COLD PACKS APPL [address] MODALITY 5 [facility] 1/> AREAS INC INC ULTRASOUN D EA 15 MIN THERAPEUT [address] IC PX 1/> 5 [facility] AREAS INC INC EACH 15 MIN EXERCISES APPL [address] MODALITY 5 [facility] 1/> AREAS INC INC ELEC STIMJ UNATTENDE D APPL [address] MODALITY 5 [facility] 1/> AREAS INC INC ELEC STIMJ UNATTENDE D THERAPEUT [address] IC PX 1/> 5 [facility] AREAS INC INC EACH 15 MIN EXERCISES APPLICATI [address] ON 5 [facility] MODALITY INC INC 1/> AREAS HOT/COLD PACKS LUMB L0627 ADVANCED ADVANCED ORTHOSIS 5 TECHNOLOG TECHNOLOG SAGIT IES INC IES INC CNTRL RIGID A&P PANEL PREFAB ORTHOTIC [address] MGMT&IKE 5 [facility] [place] UXTR INC INC LXTR&/TRN K EA [address] MODALITY 5 [facility] 1/> AREAS INC INC ULTRASOUN D EA 15 MIN [address]APEUT [address] IC PX 1/> 5 [facility] AREAS INC INC EACH 15 MIN EXERCISES APPL [address] MODALITY 5 [facility] 1/> AREAS INC INC ELEC STIMJ UNATTENDE D APPL [address] MODALITY 5 [facility] 1/> AREAS INC INC ELEC STIMJ UNATTENDE D THERAPEUT [address] IC PX 1/> 5 [facility] AREAS INC INC EACH 15 MIN EXERCISES APPL [address] MODALITY 5 [facility] 1/> AREAS INC INC ULTRASOUN D EA 15 MIN APPL [address] MODALITY 5 [facility] 1/> AREAS INC INC ULTRASOUN D EA 15 MIN APPLICATI [address] ON 5 [facility] MODALITY INC INC 1/> AREAS HOT/COLD PACKS THERAPEUT [address] IC PX 1/> 5 [facility] AREAS INC INC EACH 15 MIN EXERCISES APPL [address] MODALITY 5 [facility] 1/> AREAS INC INC ELEC STIMJ UNATTENDE D APPL [address] MODALITY 5 [facility] 1/> AREAS INC INC ELEC STIMJ UNATTENDE D THERAPEUT [address] IC PX 1/> 5 [facility] AREAS INC INC EACH 15 MIN EXERCISES APPLICATI [address] ON 5 [facility]OS[facility] MODALITY INC INC 1/> AREAS HOT/COLD PACKS APPL [address] MODALITY 5 [facility] 1/> AREAS INC INC ULTRASOUN D EA 15 MIN APPL [address] MODALITY 5 [facility] 1/> AREAS INC INC ULTRASOUN D EA 15 MIN THERAPEUT [address] IC PX 1/> 5 [facility] AREAS INC INC EACH 15 MIN EXERCISES APPL [address] MODALITY 5 [facility] 1/> AREAS INC INC ELEC STIMJ UNATTENDE D APPL [address] MODALITY 5 [facility] 1/> AREAS INC INC ELEC STIMJ UNATTENDE D THERAPEUT [address] IC PX 1/> 5 [facility] AREAS INC INC EACH 15 MIN EXERCISES APPL [address] MODALITY 5 [facility] 1/> AREAS INC INC ULTRASOUN D EA 15 MIN APPL [address] MODALITY 5 [facility] 1/> AREAS INC INC ULTRASOUN D EA 15 MIN THERAPEUT [address] IC PX 1/> 5 [facility] AREAS INC INC EACH 15 MIN EXERCISES APPL [address] MODALITY 5 [facility] 1/> AREAS INC INC ELEC STIMJ UNATTENDE D THERAPEUT [address] IC PX 1/> 5 [facility] AREAS INC INC EACH 15 MIN EXERCISES APPL [address] MODALITY 5 [facility] 1/> AREAS INC INC ELEC STIMJ UNATTENDE D APPL [address] MODALITY 5 [facility] 1/> AREAS INC INC ULTRASOUN D EA 15 MIN APPLICATI [address] ON 5 [facility] MODALITY INC INC 1/> AREAS HOT/COLD PACKS APPL [address] MODALITY 5 [facility] 1/> AREAS INC INC ULTRASOUN D EA 15 MIN APPL [address] MODALITY 5 [facility] 1/> AREAS INC INC ELEC STIMJ UNATTENDE D THERAPEUT [address] IC PX 1/> 5 [facility] AREAS INC INC EACH 15 MIN EXERCISES THERAPEUT [address] IC PX 1/> 5 [facility] AREAS INC INC EACH 15 MIN EXERCISES APPL [address] MODALITY 5 [facility] 1/> AREAS INC INC ELEC STIMJ UNATTENDE D APPL [address] MODALITY 5 [facility] 1/> AREAS INC INC ULTRASOUN D EA 15 MIN MRI 60063 NEURODIAG [place] SPINAL 5 NOSTICS [place] CANAL INC CERVICAL W/O CONTRAST MATRL APPL [address] MODALITY 5 [facility] 1/> AREAS INC INC ULTRASOUN D EA 15 MIN APPL [address] MODALITY 5 [facility] 1/> AREAS INC INC ELEC STIMJ UNATTENDE D THERAPEUT [address] IC PX 1/> 5 [facility] AREAS INC INC EACH 15 MIN EXERCISES THERAPEUT [address] IC PX 1/> 5 [facility] AREAS INC INC EACH 15 MIN EXERCISES APPL [address] MODALITY 5 [facility] 1/> AREAS INC INC ELEC STIMJ UNATTENDE D APPLICATI [address] ON 5 [facility]OS[facility] MODALITY INC INC 1/> AREAS HOT/COLD PACKS APPL [address] MODALITY 5 [facility] 1/> AREAS INC INC ULTRASOUN D EA 15 MIN [address] MODALITY 5 [facility] 1/> AREAS INC INC ULTRASOUN D EA 15 MIN MANUAL [address] THERAPY 5 [facility] TQS 1/> INC INC REGIONS EACH [address]UT [address] IC PX 1/> 5 [facility] AREAS INC INC EACH 15 MIN EXERCISES APPL [address] MODALITY 5 [facility] 1/> AREAS INC INC ELEC STIMJ UNATTENDE D THERAPEUT [address] IC PX 1/> 5 [facility] AREAS INC INC EACH 15 MIN EXERCISES MANUAL [address] THERAPY 5 [facility] TQS 1/> INC INC REGIONS EACH [address] APPL [address] MODALITY 5 [facility] 1/> AREAS INC INC ULTRASOUN D EA 15 MIN [address]ATI [address] ON 5 [facility]OS[facility] MODALITY INC INC 1/> AREAS HOT/COLD PACKS APPLICATI [address] ON 5 [facility]OS[facility] MODALITY INC INC 1/> AREAS HOT/COLD PACKS APPL [address] MODALITY 5 [facility] 1/> AREAS INC INC ULTRASOUN D EA 15 MIN [address]APEUT [address] IC PX 1/> 5 [facility] AREAS INC INC EACH 15 MIN EXERCISES APPL [address] MODALITY 5 [facility] 1/> AREAS INC INC ELEC STIMJ UNATTENDE D APPL [address] MODALITY 5 [facility] 1/> AREAS INC INC ELEC STIMJ UNATTENDE D PHYSICAL [address] THERAPY 5 [facility] EVALUATIO INC INC N THERAPEUT [address] IC PX 1/> 5 [facility] AREAS INC INC EACH 15 MIN EXERCISES CYSTOURET 14137 STEPHANIE BROWN HROSCOPY 5 [facility] PSC PSC URNLS DIP 94054 STEPHANIE SILVA 5 [place] [facility] STICK/TAB CLINIC LET RGNT PSC AUTO [place] [address] STEPHANIE SILVA PROSTATE 5 [facility] SPECIFIC CLINIC ANTIGEN PSC TOTAL SMR PRIM 38642 [facility] BOLES SRC 5 CLINIC CLINIC GRAM/GIEM LABORATO LABORATO SA STAIN BCT FUNGI/LEODAN L COLLECTIO 65795 STEPHANIE SILVA N VENOUS 5 [facility] JUS BLOOD CLINIC VENIPUNCT PSC URE CYTP 24652 STEPHANIE ERNST FRANDY SLCTV 5 [place] CELL [facility] ENHANCEME PSC NT INTERPJ XCPT C/V CUL BACT 88240 [facility] BOLES XCPT 5 CLINIC CLINIC URINE LABORATO LABORATO BLOOD/STO OL AEROBIC ISOL COLLECTIO 58740 COMBINED COMBINED N VENOUS 2 PHYSICIAN PHYSICIAN BLOOD S LA S LA VENIPUNCT URE PROTHROMB 65851 COMBINED COMBINED IN TIME 2 PHYSICIAN PHYSICIAN S LA S LA CONTINUOU E0601 ABD[facility] COPPOLA S 2 HOME HOME POSITIVE MEDICAL MEDICAL AIRWAY EQUIPME EQUIPME PRESSURE DEVICE NONCOVERE A9270 [facility] D ITEM OR 2 [facility] HOSP COMPREHEN 56050 [facility] SIVE 2 [facility] METABOLIC HOSP HOSP PANEL PROTHROMB 86362 [facility] IN TIME 2 [facility] HOSP BLOOD 16822 [facility] COUNT 2 [facility] COMPLETE HOSP HOSP AUTO&AUTO DIFRNTL WBC URNLS DIP 57199 [facility] CENTRAL 2 [facility] STICK/TAB HOSP HOSP LET REAGENT AUTO MICROSCOP Y COLLECTIO 81017 [facility] N VENOUS 2 [facility] [place] [address] [facility]ENTRAL ABDOMEN & 2 [facility] PELVIS HOSP HOSP W/O CONTRAST MATERIAL O2 CONC 1 E1390 ABDON COPPOLA DEL PORT 2 HOME HOME 85%/>02 MEDICAL MEDICAL CONC AT EQUIPME EQUIPME PRSC FLW RATE PRTBLE E0431 [facility] COP[facility] GASEOUS 2 HOME HOME O2 SYS MEDICAL MEDICAL RENT; EQUIPME EQUIPME FLWMTR HUMIDFR&M ASK HEMOGLOBI 72424 WEST MUR WEST MUR N 2 GLYCOSYLA CORTNEY A1C ADMN SET A7003 YOUR YOUR SM VOL 2 PHARMACY PHARMACY NONFILTR PNEUMAT NEBULIZR DISPBL URNLS DIP 33612 STEPHANIE RAMIREZ 2 RAMANA JR THO STICK/TAB [...] CONC AT EQUIPME EQUIPME PRSC FLW RATE INJECTION J2405 [address] [facility] ONDANSETR INC INC [place] H[place] [address] [place] [address] CLOSTRIDI 2 [facility] UM INC INC DIFFICILE TOXIN 3D [address] RENDERING 2 [facility] INC INC W/INTERP& POSTPROC DIFF WORK STATION URNLS DIP [address] 2 [facility] STICK/TAB INC INC LET REAGENT AUTO MICROSCOP Y BLOOD [address] COUNT 2 [facility] COMPLETE INC INC AUTO&[place] [address] AMYLASE 2 [facility] INC INC COMPREHEN [address] SIVE 2 [facility] METABOLIC INC INC PANEL PROTHROMB [address] IN TIME 2 [facility] [place] [address] LIPASE 2 MEM HOS[facility] [place] [address] ABDOMEN & 2 [facility] PELVIS INC INC W/O CONTRAST MATERIAL CUL BACT [address] STOOL 2 [facility] AEROBIC INC INC ISOL SALMONELL A&SHIGELL THERAPEUT [address] IC 2 [facility] INJECTION INC INC IV PUSH EACH NEW DRUG THER [address] PROPH/DX 2 [facility] NJX IV INC INC PUSH SINGLE/1S T SBST/DRUG COLLECTIO 91023 COMBINED COMBINED N VENOUS 2 PHYSICIAN PHYSICIAN BLOOD S LA S LA VENIPUNCT URE POTASSIUM 77312 COMBINED COMBINED SERUM 2 PHYSICIAN PHYSICIAN PLASMA/WH S LA S LA OLE BLOOD PROTHROMB 29318 COMBINED COMBINED IN TIME 2 PHYSICIAN PHYSICIAN S LA S LA URNLS DIP 13947 [facility] 2 RAMANA JR THO STICK/TAB CLINIC LET RGNT PSC AUTO W/O MICROSCOP Y PROTHROMB 52167 COMBINED COMBINED IN TIME 2 [place] [address] INFUSION 2 [facility] THERAPY/P INC INC ROPHYLAXI S /DX 1ST TO [address] IC 2 [facility] INJECTION INC INC IV PUSH EACH NEW DRUG BASIC 50682 COMBINED COMBINED METABOLIC 2 PHYSICIAN PHYSICIAN PANEL S LA S LA CALCIUM TOTAL COLLECTIO 25742 COMBINED COMBINED N VENOUS 2 PHYSICIAN PHYSICIAN BLOOD S LA S LA VENIPUNCT URE COMPREHEN 59239 COMBINED COMBINED SIVE 2 PHYSICIAN PHYSICIAN METABOLIC S LA S LA PANEL BLOOD 07531 COMBINED COMBINED COUNT 2 PHYSICIAN PHYSICIAN COMPLETE S LA S LA AUTO&AUTO DIFRNTL WBC WND CARE A6550 [facility] SET NEG 2 THERAPEUT THERAPEUT PRSS WND IC SER IC SER TX ELEC INC INC PUMP SPL ADMN SET A7003 YOUR YOUR VOL 2 PHARMACY PHARMACY NONFILTR PNEUMAT NEBULIZR DISPBL CANISTER A7000 [facility] DISPOSABL 2 THERAPEUT THERAPEUT E USED IC SER IC SER WITH INC INC SUCTION PUMP EACH NEG PRESS E2402 [facility] WOUND 2 THERAPEUT THERAPEUT THERAPY IC SER IC SER ELEC PUMP INC INC STATION/P [facility] [address] [facility] 2 INPATIENT ALI DAY MEDICINE MANAGEMEN T > 30 MIN SBSQ 82451 [facility] 2 INPATIENT ALI CARE/DAY MEDICINE 25 MINUTES SBSQ [phone] [facility] 2 INPATIENT ALI CARE/DAY MEDICINE 35 MINUTES INITIAL 57866 [facility] 2 INPATIENT ALI CARE/DAY MEDICINE 70 MINUTES RADIOLOGI 30003 [facility] [place] IRVIN C 2 RADIOLOGY RAY EXAMINATI ON CHEST SINGLE VIEW FRONTAL HUMDIFIR E0562 ABDON [place]A HEATED 2 HOME HOME USED MEDICAL MEDICAL W/POS EQUIPME EQUIPME ARWAY PRESSURE DEVICE CONTINUOU E0601 ABDON ABDON S 2 HOME HOME POSITIVE MEDICAL MEDICAL AIRWAY EQUIPME EQUIPME PRESSURE DEVICE FULL FACE A7030 ABDON PENARELL MASK 2 HOME HOME USED MEDICAL MEDICAL W/POS EQUIPME EQUIPME ARWAY PRESS DEVICE EA FILTER A7038 ABDON ABDON DISPBL 2 HOME HOME USED MEDICAL MEDICAL W/POS EQUIPME EQUIPME ARWAY PRESSURE DEVICE FILTER A7039 ABDON ABDON NON 2 HOME HOME DISPBL MEDICAL MEDICAL USED EQUIPME EQUIPME W/POS ARWAY PRESS DEVICE TUBING A7037 ABDON ABDON USED WITH 2 HOME HOME POSITIVE MEDICAL MEDICAL AIRWAY EQUIPME EQUIPME PRESSURE DEVICE HEADGEAR A7035 ABDON ABDON USED 2 HOME HOME W/POSITIV MEDICAL MEDICAL E AIRWAY EQUIPME EQUIPME PRESSURE DEVICE PRTBLE E0431 ABDON ABDON GASEOUS 2 HOME HOME O2 SYS MEDICAL MEDICAL RENT; EQUIPME EQUIPME FLWMTR HUMIDFR&M ASK O2 CONC 1 E1390 [place]ANE [place] 2 HOME HOME 85%/>02 MEDICAL MEDICAL CONC AT EQUIPME EQUIPME PRSC FLW RATE SBSQ [phone] NEPHROLOG [facility] 2 Y [facility] CARE/DAY ASSOCIATE 15 S MINUTES SBSQ [id number]/DAY EAST 25 PULMONARY MINUTES SBSQ [phone] [facility] 2 INPATIENT CARE/DAY MEDICINE 25 MINUTES SBSQ [phone] [facility] 2 [facility] CARE/DAY EAST 35 PULMONARY MINUTES SBSQ [id number] CARE/DAY EAST 35 PULMONARY MINUTES SBSQ 49538 [facility] 2 INPATIENT CARE/DAY MEDICINE 25 MINUTES SBSQ 49408 [facility] 2 INPATIENT CARE/DAY MEDICINE 25 MINUTES RADIOLOGI 95753 [facility] RHETT WHYTE C 2 RADIOLOGY LD IV A EXAMINATI ON CHEST SINGLE VIEW FRONTAL CRITICAL 19513 [facility] 2 SUZANNE GRA ILL/INJUR EAST ED PULMONARY PATIENT INIT 30-74 MIN RADIOLOGI 43383 [facility] RHETT WHYTE C 2 RADIOLOGY LD IV A EXAMINATI ON CHEST SINGLE VIEW FRONTAL SBSQ 93772 [facility] 2 INPATIENT CARE/DAY MEDICINE 25 MINUTES SBSQ 76423 [facility] 2 KENNETT GRA CARE/DAY EAST 35 PULMONARY MINUTES SBSQ 75277 [facility] 2 Y BOLA CARE/DAY ASSOCIATE 35 S MINUTES SBSQ 52115 [facility] 2 INPATIENT CARE/DAY MEDICINE 25 MINUTES RADIOLOGI 81871 [facility] RHETT SANDOVAL C 2 RADIOLOGY III KEITH EXAMINATI ON CHEST SINGLE VIEW FRONTAL CRITICAL 15615 [facility] 2 SUZANNE ANA ILL/INJUR EAST ED PULMONARY PATIENT INIT 30-74 MIN ECG 16192 [facility] ROUTINE 2 [facility] ECG CLINIC W/LEAST PSC 12 LDS I&R ONLY CRITICAL 99400 [facility] 2 SUZANNE ANA ILL/INJUR EAST ED PULMONARY PATIENT INIT 30-74 MIN RADIOLOGI 27196 [facility] RHETT SANDOVAL C 2 RADIOLOGY III KEITH EXAMINATI ON CHEST SINGLE VIEW FRONTAL SBSQ 11952 [facility] 2 INPATIENT CARE/DAY MEDICINE 25 MINUTES SBSQ 87552 [facility] 2 INPATIENT ARU CARE/DAY MEDICINE 25 MINUTES RADIOLOGI 77275 [facility] RHETT HIGGINS C 2 RADIOLOGY STEPHANY EXAMINATI ON CHEST SINGLE VIEW FRONTAL CRITICAL 21933 [facility] 2 SUZANNE ILL/INJUR EAST ED PULMONARY PATIENT INIT 30-74 MIN SBSQ 79747 [facility] 2 Y BOLA CARE/DAY ASSOCIATE 35 S MINUTES SBSQ [phone] 91513 [facility] 2 INPATIENT ARU CARE/DAY MEDICINE 35 MINUTES INITIAL 95528 [facility] 2 Y THO CARE/DAY ASSOCIATE 70 S MINUTES CRITICAL 56402 [place] [address] SUZANNE SAWYER ILL/INJUR [facility] ED PULMONARY PATIENT INIT 30-74 MIN INSERTION 9604 [facility] OF [address] [place] [address] ENDOTRACH EAL TUBE ARTERIAL 3891 [facility] CATHETERI [address] [place] [address] ZATION CENTRAL 3897 [facility] VENOUS [address] [place] [address] CATHETER PLACEMENT WITH GUIDANCE CONT [address] MECH VENT 96 CONSECUTI VE HRS/MORE RADIOLOGI 66985 [facility] [place] WESTERFI[place] C 2 RADIOLOGY LD IV A EXAMINATI ON CHEST SINGLE VIEW FRONTAL DAILY 66132 [facility] 2 A MIH ASSOCIATE EDRL/PAULETTE [place] [address] [facility] [place] IRVIN RETROPERI 2 RADIOLOGY RAY TONEAL REAL TIME W/IMAGE LIMITED INSJ 73135 [facility] 2 SUZANNE SAWYER [facility] CENTRAL PULMONARY VENOUS CATH AGE 4 YR/> ARTL 01055 [facility] CATHJ/CAN 2 SUZANNE SAWYER [facility] MNTR/SWIFT PULMONARY SFUSION SPX PRQ NJXS 22708 ANESTHESI VANCE INFUS/MAITE 2 A SCO US ASSOCIATE DX/SBST S PSC EDRL/SUBA PETER CRV/THRC ECG 32819 STEPHANIE SESAY FRANDY ROUTINE 2 [place] ECG CLINIC W/LEAST PSC 12 LDS I&R ONLY NEPHRECTO 68018 STEPHANIE RAMIREZ MY 2 RAMANA JR THO PARTIAL CLINIC PSC ANES 59763 ANESTHESI ALEX XTRPRTL 2 A STA LOWER ABD ASSOCIATE UR TRACT S PSC RENAL DON NFRCT PARTIAL 554 [facility] NEPHRECTO [address] [place] [address] [place] [address] [facility] 2 [facility] PATH[facility]Y CLINIC PSC GROSS&MIGUEL ROSCOPIC EXAM INITIAL 71479 [facility] 2 INPATIENT ARU CARE/DAY MEDICINE 70 MINUTES RADIOLOGI 24016 [facility] [place] CARINA [facility] C EXAM 2 RADIOLOGY CHEST 2 VIEWS FRONTAL&L ATERAL ECG 06010 [facility] RAMOS ROUTINE 2 [facility] ECG CLINIC W/LEAST PSC 12 LDS I&R ONLY PRTBLE E0431 ABDON ABDON GASEOUS 2 HOME HOME O2 SYS MEDICAL MEDICAL RENT; EQUIPME EQUIPME FLWMTR HUMIDFR&M ASK O2 CONC 1 E1390 ABDON ABDON DEL PORT 2 HOME HOME 85%/>02 MEDICAL MEDICAL CONC AT EQUIPME EQUIPME PRSC FLW RATE PROTHROMB 24889 COMBINED COMBINED IN TIME 2 PHYSICIAN PHYSICIAN S LA S LA COLLECTIO 39251 COMBINED COMBINED N VENOUS 2 PHYSICIAN PHYSICIAN BLOOD S LA S LA VENIPUNCT URE URNLS DIP 09647 [facility]IC [facility] 2 FOOT & JR THO STICK/TAB ANKLE LET RGNT SPECI AUTO W/O MICROSCOP Y HEMOGLOBI 01298 [facility] MUR N 2 GLYCOSYLA CORTNYE A1C PROTHROMB 45524 COMBINED COMBINED IN TIME 2 PHYSICIAN PHYSICIAN S LA S LA COLLECTIO 02032 COMBINED COMBINED N VENOUS 2 PHYSICIAN PHYSICIAN BLOOD S LA S LA VENIPUNCT URE COLLECTIO 80887 COMBINED COMBINED N VENOUS 2 PHYSICIAN PHYSICIAN BLOOD S LA S LA VENIPUNCT URE PROTHROMB 55427 COMBINED COMBINED IN TIME 2 PHYSICIAN PHYSICIAN S LA S LA URNLS DIP 81764 [facility] 2 [place] THO STICK/TAB CLINIC LET PSC REAGENT AUTO MICROSCOP Y PROTHROMB 43917 COMBINED COMBINED IN TIME 2 PHYSICIAN PHYSICIAN S LA S LA COLLECTIO 06022 COMBINED COMBINED N VENOUS 2 PHYSICIAN PHYSICIAN BLOOD S LA S LA VENIPUNCT URE PROTHROMB 64551 COMBINED COMBINED IN TIME 2 PHYSICIAN PHYSICIAN S LA S LA COLLECTIO 51711 COMBINED COMBINED N VENOUS 2 PHYSICIAN PHYSICIAN BLOOD S LA S LA VENIPUNCT URE PROTHROMB 93064 COMBINED COMBINED IN TIME 2 PHYSICIAN PHYSICIAN S LA S LA COLLECTIO 24879 COMBINED COMBINED N VENOUS 2 PHYSICIAN PHYSICIAN BLOOD S LA S LA VENIPUNCT URE COLLECTIO 55778 COMBINED COMBINED N VENOUS 2 PHYSICIAN PHYSICIAN BLOOD S LA S LA VENIPUNCT URE PROTHROMB 46647 COMBINED COMBINED IN TIME 2 PHYSICIAN PHYSICIAN S LA S LA CLOTTING 61241 [facility] INHIBITOR 2 AMERIC AMERIC S [employer] C ACTIVITY CLOTTING 80957 [facility] INHIBITOR 2 AMERIC AMERIC S [employer] S FREE URNLS DIP [address] LET REAGENT AUTO MICROSCOP Y CYSTOURET 89922 [facility] 2 FOOT & THO ANKLE SPECI COLLECTIO 72712 COMBINED COMBINED N VENOUS 2 PHYSICIAN PHYSICIAN BLOOD S LA S LA VENIPUNCT URE PROTHROMB 13743 COMBINED COMBINED IN TIME 2 PHYSICIAN PHYSICIAN S LA S [place] CT THORAX 59705 [facility] [place] 2 RADIOLOGY RHO W/[place] [address] [facility] [place] ABDOMEN & 2 RADIOLOGY RHO PELVIS W/O CONTRST 1/> BODY RE COLLECTIO 51447 COMBINED COMBINED N VENOUS 2 PHYSICIAN PHYSICIAN BLOOD S LA S LA VENIPUNCT URE PROTHROMB 34778 COMBINED COMBINED IN TIME 2 PHYSICIAN PHYSICIAN S LA S LA ECHO 52866 [facility] TTHRC R-T 2 [facility] 2D HOSP HOSP W/WOM-MOD E COMPL SPEC&COLR D O2 CONC 1 E1390 ABDON COPPOLA DEL PORT 2 HOME HOME 85%/>02 MEDICAL MEDICAL CONC AT EQUIPME EQUIPME PRSC FLW RATE PRTBLE E0431 ABDON COPPOLA GASEOUS 2 HOME HOME O2 SYS MEDICAL MEDICAL RENT; EQUIPME EQUIPME FLWMTR HUMIDFR&M ASK COLLECTIO 97398 COMBINED COMBINED N VENOUS 2 PHYSICIAN PHYSICIAN BLOOD S LA S LA VENIPUNCT URE PROTHROMB 39362 COMBINED COMBINED IN TIME 2 [place] [address] COMBINED COMBINED THYROID 2 PHYSICIAN PHYSICIAN STIMULATI [place] [address] COMBINED COMBINED FREE 2 PHYSICIAN PHYSICIAN THYROXINE S LA S LA COMPREHEN 44341 COMBINED COMBINED SIVE 2 PHYSICIAN PHYSICIAN METABOLIC S LA S LA PANEL HEMOGLOBI 58339 COMBINED COMBINED N 2 PHYSICIAN PHYSICIAN GLYCOSYLA S LA S LA CORTNEY A1C BLOOD 54033 COMBINED COMBINED COUNT 2 PHYSICIAN PHYSICIAN COMPLETE S LA S LA AUTO&AUTO DIFRNTL WBC BLOOD 72640 [facility] COUNT 2 [facility] COMPLETE HOSP HOSP AUTO&AUTO DIFRNTL WBC NATRIURET 87973 [facility] IC 2 [facility] PEPTIDE HOSP HOSP COMPREHEN 95073 [facility] SIVE 2 [facility] METABOLIC HOSP HOSP PANEL PROTHROMB 59099 [facility] IN TIME 2 [facility] THER 01130 [facility] PROPH/DX 2 [facility] NJX IV HOSP HOSP PUSH SINGLE/1S T SBST/DRUG RADIOLOGI 36580 [facility]AL FRY C EXAM 2 RADIOLOGY JAMES CHEST 2 ASSOC VIEWS FRONTAL&L ATERAL NONCOVERE A9270 [facility] D ITEM OR 2 [facility]ICE [facility] HOSP COLLECTIO 83283 COMBINED COMBINED N VENOUS 2 PHYSICIAN PHYSICIAN BLOOD S LA S LA VENIPUNCT URE PROTHROMB 23221 COMBINED COMBINED IN TIME 2 PHYSICIAN PHYSICIAN S LA S LA PROTHROMB 92273 [place] OZIELON IN TIME 2 [facility] BLOOD 23993 [place] COUNT 2 [facility] AUTO&AUTO DIFRNTL WBC URNLS DIP 35094 [place] 2 [facility]/TAB [facility] LET REAGENT AUTO MICROSCOP Y COLLECTIO 03178 [place] BOSOLITARIOON N VENOUS 2 [facility] VENIPUNCT URE THER 75744 [place] RASHIDAURBON PROPH/DX 2 [facility] PUSH SINGLE/1S T SBST/DRUG BASIC 03698 [place] METABOLIC 2 [facility] [place] [address] [facility] ABDOMEN & 2 [facility] W/CONTRAS T MATERIAL COLLECTIO 28546 COMBINED COMBINED N VENOUS 2 PHYSICIAN PHYSICIAN BLOOD S LA S LA VENIPUNCT URE PROTHROMB 66065 COMBINED COMBINED IN TIME 2 PHYSICIAN PHYSICIAN S LA Maryellen [facility] 60[address] [facility] 2 MEDICINE DEN DAY SERV MANAGEMEN @CTRL BAP T > 30 MIN SBSQ 09341 [place] [address] MEDICINE DEN CARE/DAY SERVICES 25 MINUTES SBSQ 92629 [place] [address] MEDICINE DEN CARE/DAY SERVICES 25 MINUTES SBSQ 13121 [place] [address] MEDICINE DEN CARE/DAY SERVICES 35 MINUTES SBSQ 56853 [place] [address] MEDICINE DEN CARE/DAY SERVICES 35 MINUTES SBSQ 15522 [place] [address] MEDICINE CARE/DAY SERV 35 @CTRL BAP MINUTES SBSQ 78178 [place] [address] ONCOLOGY CARE/DAY ASSOCIATE 15 S MINUTES INITIAL [address] CARE/DAY CLINIC 50 PSC MINUTES VENOGRAPH 16619 [facility] Y CAVAL 2 SURGICAL THO INFERIOR ASSOCIATE SERIALOGR S APHY RS&I INITIAL [address] CARE/DAY ONCOLOGY 70 A MINUTES DUP-SCAN 12670 [place] KELLY XTR VEINS 2 ANT COMPLETE CARDIOLOG Y AT CENT BILATERAL STUDY INTRO 93084 SCHWARCZ SCHWARCZ CATHETER 2 THO THO SUPERIOR/ [place] [address] SCHWARCZ SCHWARCZ INTRVAS 2 THO THO VC FILTR W/WO VAS ACS VSL SELXN RS&I INTERRUPT 387 [facility] ION OF 2 [facility] CAVA ANGIOCARD 8851 [facility] IOGRAPHY 2 [facility] [address] CENTRAL GARZA ADA ABDOMEN & 2 RADIOLOGY PELVIS ASSOC W/O CONTRAST MATERIAL ECHO 80329 [facility] TTHRC R-T 2 IV HEN 2D CARDIOLOG W/WOM-MOD Y AT CENT E COMPL SPEC&COLR D THERAPEUT 59197 YNES QUICK IC 2 [facility] INJECTION [facility] IV PUSH EACH NEW DRUG CULTURE 09355 YNES QUICK BACTERIAL 2 [facility] AEROBIC W/ID ISOLATES THER 67343 YNES QUICK PROPH/DX 2 [facility] NJX IV HOSPITAL HOSPITAL PUSH SINGLE/1S T SBST/DRUG THERAPEUT 27147 YNES QUICK IC 2 [facility] TIC/DX INJECTION SUBQ/IM ECG 81545 YNES QUICK ROUTINE 2 [facility] W/LEAST 12 LDS TRCG ONLY W/O I&R COLLECTIO 34110 YNES QUICK N VENOUS 2 [facility] VENIPUNCT URE PROTHROMB 16149 YNES QUICK IN TIME [address] [place] [address] FIBRIN 20572 YNES QUICK DGRADJ 2 [facility] D-DIMER QUANTITAT JOANIE COMPREHEN 92788 YNES QUICK SIVE 2 [facility] PANEL ECG 99092 ROBBY BUSTAMANTE ROUTINE 2 EMERGENCY EMERGENCY ECG SERVICES SERVICES W/LEAST 12 LDS I&R ONLY BLOOD 33709 YNES QUICK COUNT 2 [facility] AUTO&AUTO DIFRNTL WBC RADIOLOGI 91825 ROBBY BUSTAMANTE C 2 EMERGENCY EMERGENCY EXAMINATI SERVICES SERVICES ON CHEST SINGLE VIEW FRONTAL CT THORAX 04941 YNES QUICK 2 [facility] W/[facility] T MATERIAL THROMBOPL 68120 YNES QUICK ASTIN 2 [facility] PARTIAL PLASMA/WH OLE BLOOD RADIOLOGI 61903 [facility] [place] SCALF MOUSTAPHA C EXAM 2 RADIOLOGY CHEST 2 VIEWS FRONTAL&L ATERAL PRTBLE E0431 ABDON ABDON GASEOUS 2 HOME HOME O2 SYS MEDICAL MEDICAL RENT; EQUIPME EQUIPME FLWMTR HUMIDFR&M ASK O2 CONC 1 E1390 ABDON COPPOLA DEL PORT 2 HOME HOME 85%/>02 MEDICAL MEDICAL CONC AT EQUIPME EQUIPME [facility] FLW RATE RADIOLOGI [address] C EXAM 2 [facility]OS[facility] CHEST 2 INC INC VIEWS FRONTAL&L ATERAL BASIC 92853 [facility] METABOLIC 2 AMERIC 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 CYTP 51902 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 2 Y MONICA OF Y MONICA OF CELL LINDA LINDA ENHANCEME H H NT INTERPJ XCPT C/V CUL BACT [address] XCPT 2 [facility] URINE INC INC BLOOD/STO OL AEROBIC ISOL BLOOD [address] COUNT 2 MEM [facility]OS[facility] COMPLETE INC INC AUTO&AUTO DIFRNTL WBC URNLS DIP [address] THO STICK/TAB CLINIC LET PSC [place] [address] [facility] PROSTATE 2 AMERIC AMERIC 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 TOTAL PROTHROMB 17174 [facility] IN TIME 2 AMERIC AMERIC 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 SMR PRIM [address] SRC 2 MEM [facility] GRAM/GIEM INC INC SA STAIN BCT FUNGI/LEODAN L CULTURE [address] BACTERIAL 2 [facility] BLOOD INC INC [place]OB[place] W/[place] [address] INFUSION 2 MEM [facility] THERAPY/P INC INC ROPHYLAXI S /DX 1ST TO [address] IC 2 [facility] INJECTION INC INC IV PUSH EACH NEW DRUG PRESSURIZ [address] ED/NONPRE 2 MEM [facility]OS[facility] SSURIZED INC INC INHALATIO N TREATMENT PRTBLE E0431 ABDON COPPOLA GASEOUS 2 HOME HOME O2 SYS MEDICAL MEDICAL RENT; EQUIPME EQUIPME FLWMTR HUMIDFR&M ASK O2 CONC 1 E1390 ABDON ABDON DEL PORT 2 HOME HOME 85%/>02 MEDICAL MEDICAL CONC AT EQUIPME EQUIPME PRS FLW RATE MRI BRAIN 93037 NEURODIAG [place] BRAIN 2 NOSTICPSC ROL STEM W/[place] [address] HEAD/BRAI 2 [facility] HOSP N W/O INC INC CONTRAST MATERIAL CT ORBIT 86795 NIKA KENNEYUTCHER SELLA/POS 2 MEDICAL STEFF T IMAGING FOSSA/EAR ASS W/O CONTRAST MATRL THERAPEUT [address] IC 2 [facility] HOSP PROPHYLAC INC INC TIC/DX INJECTION SUBQ/IM 3D [address] RENDERING 2 [facility] HOSP W/INTERP INC INC & POSTPROCE SS SUPERVISI ON COLLECTIO 98002 [place] N VENOUS 2 [facility] PROTHROMB 84091 [place] IN TIME 2 [facility] PROTOMB 19002 [place] IN TIME 2 [facility] COLLECTIO 26171 [place] N VENOUS 2 [facility] URE RADIOLOGI 01459 [place] C EXAM [address] VIEWS FRONTAL&L ATERAL DUP-SCAN 89142 [facility] XTR VEINS 2 SUZANNE III J COMPLETE CARDIOLOG Y CLINIC BILATERAL STUDY O2 CONC 1 E1390 ABDON COPPOLA DEL PORT 2 HOME HOME 85%/>02 MEDICAL MEDICAL CONC AT EQUIPME EQUIPME PRSC FLW RATE PRTBLE E0431 ABDON COPPOLA GASEOUS 2 HOME HOME O2 SYS MEDICAL MEDICAL RENT; EQUIPME EQUIPME FLWMTR [facility] 37467 [facility] 2 EMERGENCY DEINSE DAY SERVICES MANAGEMEN T > 30 MIN SBSQ 20430 [facility] 2 EMERGENCY DENISE CARE/DAY SERVICES 25 MINUTES SBSQ 62655 [facility] 2 EMERGENCY DENISE CARE/DAY SERVICES 25 MINUTES SBSQ 76050 [facility] 2 EMERGENCY DENISE CARE/DAY SERVICES 25 MINUTES DUP-SCAN 19602 PEPE NEVAREZ NEVAREZ PEPE XTR VEINS 2 MD COMPLETE CONSULTIN G SERV BILATERAL STUDY INITIAL 00010 [facility] 2 EMERGENCY DENISE CARE/DAY SERVICES 70 MINUTES ECHO 76580 PEPE NEVAREZ NEVAREZ PEPE TTHRC R-T 2 2D CONSULTIN W/WOM-MOD G SERV E COMPL SPEC&COLR D ECG 45245 ROBBY LINDER ISIDORO ROUTINE 2 EMERGENCY ECG SERVICES W/LEAST 12 LDS I&R ONLY RADIOLOGI 08763 [facility] [place] CARINA MAT C 2 RADIOLOGY EXAMINATI ON CHEST SINGLE VIEW FRONTAL CT THORAX 07268 [facility] [place] IRVIN 2 RADIOLOGY RAY W/CONTRAS T MATERIAL CRITICAL 22776 [facility] 2 EMERGENCY ILL/INJUR SERVICES ED PATIENT INIT 30-74 MIN CULTURE 76304 [facility] BACTERIAL 2 [facility] [place] [address] [facility] BLOOD/URI 2 [facility] C ACID HOSP HOSP BLOOD 13673 [facility] COUNT 2 [facility] COMPLETE HOSP HOSP AUTO&AUTO DIFRNTL WBC COMPREHEN 50427 [facility] SIVE 2 [facility] METABOLIC HOSP HOSP PANEL URNLS DIP 28751 [facility]AL 2 [facility] STICK/TAB HOSP HOSP LET REAGENT AUTO MICROSCOP Y HEMOGLOBI 73381 [facility] MUR N 2 GLYCOSYLA CORTNEY A1C URNLS DIP 00978 [facility] MUR 2 STICK/TAB LET RGNT NON-AUTO W/O MICRSCP IAADIADOO 32740 [facility] MUR 2 STREPTOCO CCUS GROUP A CULTURE [address] BACTERIAL 2 [facility] BLOOD INC INC AEROBIC W/ID ISOLATES PRESSURIZ [address] ED/NONPRE 2 [facility]OS[facility] [place]URIZED [place] [address] INFUSION 2 [facility] THERAPY/P INC INC ROPHYLAXI S /DX 1ST TO [address] IC 2 [facility] INJECTION INC INC IV PUSH EACH NEW DRUG ECG [address] ROUTINE 2 [facility] ECG INC INC W/LEAST 12 LDS TRCG ONLY W/O I&R IAADI [address] INFLUENZA 2 [facility] B VIRUS INC INC IAADI [address] INFFLUENZ 2 [facility] A A VIRUS INC INC COMPREHEN [address] SIVE 2 [facility]OS[facility] METABOLIC INC INC PANEL CREATINE [address] KINASE MB 2 MEM [facility] FRACTION INC INC ONLY CREATINE [address] KINASE 2 [facility] TOTAL INC INC NATRIURET [address] IC 2 [facility]OS[facility] PEPTIDE INC INC BLOOD [address] COUNT 2 [facility]OS[facility] COMPLETE INC INC AUTO&AUTO DIFRNTL WBC BLOOD [address] GASES ANY 2 [facility] INC INC COMBINATI ON PH PCO2 PO2 CO2 HCO3 ECG [address] ROUTINE 2 [facility] W/LEAST P P 12 LDS I&[place] [address] TROPONIN 2 [facility] QUANTITAT INC INC JOANIE RADIOLOGI [address] C 2 [facility] EXAMINATI INC [place] [address] [facility] [place] MAT HEAD/BRAI 1 RADIOLOGY N W/O CONTRAST MATERIAL URNLS DIP [address] 1 [facility] STICK/TAB INC INC LET REAGENT AUTO MICROSCOP Y INSJ TEMP [address] NDWELLG 1 [facility] BLADDER INC INC CATHETER SIMPLE BLOOD [address] COUNT 1 [facility] COMPLETE INC INC AUTO&AUTO DIFRNTL WBC COMPREHEN [address] SIVE 1 [facility] METABOLIC INC INC PANEL SPMTRY 99303 [facility] MUR W/VC 1 EXPIRATOR Y HANSEL W/WO MXML VOL VNTJ FLUOROSCO 32806 [facility] 1 PAIN PAIN GUIDANCE MEDICIINE MEDICIINE NEEDLE PSC PSC PLACEMENT ADD ON MULTIPLE 69126 [facility] NERVE 1 PAIN PAIN BLOCK MEDICIINE MEDICIINE INJECTION PSC PSC S RIB NERVES BLOOD 13971 [facility] COUNT 1 [facility] MCRSCP W/MNL DIFRNTL WBC COUNT RADIOLOGI 55541 [facility] [place] C EXAM 1 RADIOLOGY RHO CHEST 2 VIEWS FRONTAL&L ATERAL RADEX 76891 [facility] [place] SPINE 1 RADIOLOGY RHO THORACIC 2 VIEWS COLLECTIO 14214 [facility] N VENOUS 1 [facility] [place] [address] [facility] FREE 1 [facility] [place] [address] [facility] THYROID 1 [facility] TSH COMPREHEN 55010 [facility] SIVE 1 [facility] PANEL HEMOGLOBI 52532 [facility] N 1 [facility] CORTNEY A1C BLOOD 40947 [facility] COUNT 1 [facility] AUTOMATED LIPID 10159 [facility] PANEL 1 [facility] URNLS DIP [address] STICK/TAB HOSPITAL HOSPITAL LET REAGENT AUTO MICROSCOP Y INJECTION J3301 [facility] [place] 1 PAIN [place] TRIAMCINO MEDICIINE LONE PSC ACETONIDE NOS 10 MG INJECTION 02548 [facility] [place] 1 PAIN [place] ANESTHETI MEDICIINE C AGENT [place] [facility] [place] 79243 [facility] DX/THER 1 [place] AGT PVRT MEDICIINE FACET JT PSC CRV/THRC 1 LEVEL INJECTION J3301 [facility] 1 [place]IN [place] TRIAMCINO MEDICIINE LONE PSC ACETONIDE NOS 10 [place] NJX 42992 [facility] DX/THER 1 [place] AGT PVRT MEDICIINE FACET JT PSC CRV/THRC 3+ LEVEL MODERATE 20448 [facility] SEDATJ 1 [place] [place] SAME MEDICIINE PHYS/QHP PSC 5/>YRS INIT 30 MIN LOCM Q9965 [facility] 100-199 1 [place] [place] MG/ML MEDICIINE IODINE PSC CONCENTRA [place] NJX 42773 [facility] DX/THER 1 [place] AGT PVRT MEDICIINE FACET JT PSC CRV/THRC 2ND LEVEL ADMINISTR G0008 [facility] ATION OF 1 INFLUENZA VIRUS VACCINE INFLUENZA Q2038 [facility] VACC 1 SPLIT VIRUS 3 YRS & > IM FLUZONE OPHTH 66169 [facility]ITT[facility] 1 VISION XM&EVAL COMPRE NEW PT 1/> VST FLUOR 59338 [facility] NEEDLE/CA 1 [place] TH MEDICIINE SPINE/PAR PSC ASPINAL DX/[place]X 45461 [facility] DX/THER 1 [place] SBST MEDICIINE EPIDURAL/ PSC SUBRACH CERV/THOR ACIC MODERATE 28439 [facility] SEDATJ 1 [place] [place] SAME MEDICIINE PHYS/QHP PSC 5/>YRS INIT 30 MIN INJECTION J3301 [facility] 1 [place] TRIAMCINO MEDICIINE LONE PSC ACETONIDE NOS 10 MG HEMOGLOBI 98618 [facility] N 1 GLYCOSYLA CORTNEY A1C NJX 55673 [facility] DX/THER 1 [place] AGT PVRT MEDICIINE FACET JT PSC CRV/THRC 2ND LEVEL LOCM Q9965 [facility] 100-199 1 [place] MG/ML MEDICIINE IODINE PSC CONCENTRA TION PER ML INJECTION J3301 [facility] 1 [place]IN [place] TRIAMCINO MEDICIINE LONE PSC ACETONIDE NOS 10 MG NJX 97751 [facility] DX/THER 1 [place] AGT PVRT MEDICIINE FACET JT PSC CRV/THRC 1 LEVEL MODERATE 45274 [facility] SEDATJ 1 PAIN [place] SAME MEDICIINE PHYS/QHP PSC 5/>YRS INIT 30 MIN NJX 90587 [facility] DX/THER 1 [place] AGT PVRT MEDICIINE FACET JT PSC CRV/THRC 3+ LEVEL INJECTION J1030 [facility] 1 METHYLPRE DNISOLONE ACETATE 40 MG INJECTION J1100 [facility] 1 DEXAMETHO SONE SODIUM PHOSPHATE 1 MG MRI 60664 [facility] [place] SPINAL 1 NOSTICPSC ROL CANAL THORACIC W/O CONTRAST MATRL MRI 29674 [facility] [place] SPINAL 1 NOSTICPSC ROL CANAL LUMBAR W/O CONTRAST MATERIAL MRI 08245 [facility] [place] ABDOMEN 1 NOSTICPSC ROL W/O & W/CONTRAS T MATERIAL MRI [address] SPINAL 1 [facility] CANAL INC INC CERVICAL W/O CONTRAST MATRL 3D [address] RENDERING 1 [facility] W/INTERP INC INC & POSTPROCE SS SUPERVISI ON PROSTATE G0103 [facility] 1 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 ; PSA TEST CT THORAX 31561 [facility] SANDOVAL W/O [address] [place] [address] [facility] SANDOVAL ABDOMEN 1 RADIOLOGY KEITH W/O CONTRAST MATERIAL RADIOLOGI 10161 [facility] [place] SEAN Shah C EXAM 1 RADIOLOGY CHEST 2 VIEWS FRONTAL&L ATERAL HEMOGLOBI 34147 [facility] N 1 GLYCOSYLA CORTNEY A1C NATRIURET 32157 YNES QUICK IC 1 [facility] BLOOD 51346 YNES QUICK COUNT 1 [facility] AUTO&[place] [address] YNES QUICK TROPONIN 1 [facility] JOANIE COMPREHEN 69561 YNES QUICK SIVE 1 [facility] PANEL PROTHROMB 06691 YNES QUICK IN TIME 1 [facility] FIBRIN 34889 [facility] DGRADJ 1 [facility] D-DIMER QUAL/SEMI FLACO ECG 96672 [facility] ROUTINE 1 [facility] W/LEAST 12 LDS TRCG ONLY W/O I&R THER 54149 [facility] PROPH/DX 1 [facility] NJX IV [facility] PUSH SINGLE/1S T SBST/DRUG COLLECTIO 84410 [facility] N VENOUS 1 [facility] VENIPUNCT URE RADIOLOGI 36093 [facility] [place] MAT C EXAM 1 RADIOLOGY CHEST 2 VIEWS FRONTAL&L ATERAL THROMBOPL 67692 [facility] ASTIN 1 [facility] PARTIAL PLASMA/WH OLE BLOOD Encounters Encounter Start End Date Code Location Performer Type Date OFFICE 56751 [facility] 7 7 PHYSICIAN T VISIT PRACTICE 25 L MINUTES EMERGENCY 80763 ADRIANE BURKS 7 7 PHYSICIAN U DEPARTMEN S, PLLC T VISIT HIGH/URGE NT SEVERITY [facility]OSP[facility] 7 [facility] 7 [facility] T OFFICE 56194 STEPHANIE SILVA [facility] 7 7 [place] [facility] 25 PSC MINUTES OFFICE 21492 [facility] 7 7 PHYSICIAN T VISIT PRACTICE 15 L MINUTES OFFICE 35609 [facility] 7 7 PHYSICIAN T VISIT PRACTICE 15 L MINUTES EMERGENCY 14016 [facility] DEPT 7 7 JEROD VISIT EMERGENCY HIGH PHYS SEVERITY& THREAT FUNCJ OFFICE 83890 STEPHANIE BONNER [facility] 7 7 [place] [facility]IN[facility] 40 PSC MINUTES HOSPITAL [facility] 7 7 [facility] T OFFICE 41429 YNES TATE OUTPATIEN 7 7 PHYSICIAN T VISIT PRACTICE 15 L MINUTES OFFICE 73698 NEPHROLOG [facility] OUTPATIEN 7 7 Y T VISIT ASSOCIATE 25 S OF CIELO MINUTES EMERGENCY 28722 ADRIANE GOLDSMITH 7 7 PHYSICIAN DEPARTMEN S, PLLC T VISIT HIGH/URGE NT SEVERITY [facility]OSP[facility] 7 7 [facility] T OFFICE 37192 YNES TATE OUTPATIEN 7 7 PHYSICIAN T VISIT PRACTICE 15 L MINUTES OFFICE 16582 [facility] 7 PHYSICIAN T VISIT PRACTICE 15 L MINUTES OFFICE 92333 STEPHANIE [facility] 7 7 [place] T [facility] 15 PSC MINUTES [facility] 7 7 [facility] OUTPATIEN INC T EMERGENCY 94860 [facility] 7 7 [facility] DEPARTMEN INC T VISIT MODERATE SEVERITY HOSPITAL O[facility] - 6 6 [facility] T EMERGENCY 37982 [facility] 6 6 [facility] STRIDE DEPARTMEN INC PROGRAM T VISIT HIGH/URGE NT SEVERITY [facility]OSPITAL [facility] - 6 6 [facility] OUTPATIEN INC T OFFICE 70261 STEPHANIE SILVA [facility] 6 6 [place] JUS T VISIT CLINIC 15 PSC MINUTES OFFICE 87811 NEPHROLOG SAUNDERS OUTPATIEN 6 6 Y [place] T VISIT ASSOCIATE 40 S OF CIELO MINUTES HOSPITAL [facility] - 6 6 N OUTPATIEN COMMUNTIY T [facility] - 6 6 [facility] 10970 DAPHNE DAPHNE OUTPATIEN 6 6 ANA ANA T NEW 45 MINUTES OFFICE 00484 [place] VIOLET OUTPATIEN 6 6 [facility] T VISIT MEDICAL 15 G MINUTES OFFICE 35205 YENY AJI VIOLET OUTPATIEN 6 6 [facility] T NEW 45 MEDICAL MINUTES G HOSPITAL [facility] - 6 6 [facility] 45383 PEPE NEVAREZ NEVAREZ PEPE OUTPATIEN 5 5 T VISIT CONSULTIN 40 G SRV MINUTES [facility]OSP[facility] - 5 5 [facility] OUTPATIEN INC T EMERGENCY 24997 [facility] 5 5 [facility] DEPARTMEN INC T VISIT MODERATE SEVERITY OFFICE 93932 STEPHANIE SILVA OUTPATIEN 5 5 [place] [facility] 15 PSC MINUTES [facility] - 5 5 [facility] OUTPATIEN INC OFFICE 45198 VIJAY GARLAND BUX ANJ OUTPATIEN 5 5 T NEW 30 MINUTES [facility]OS[facility] - 5 5 [facility]PATIEN INC [facility] [place] - 5 5 [facility] OUTPATIEN [facility] [place] - 5 5 [facility] OUTPATIEN INC [facility] - 5 5 Y INPATIENT HOSPITAL OFFICE 05359 STEPHANIE SILVA OUTPATIEN 5 5 [place] [facility] T VISIT CLINIC 15 PSC MINUTES OFFICE 08736 [facility] OUT[facility] 2 2 T VISIT 25 MINUTES EMERGENCY 36063 [facility] 2 2 [facility] DEPARTMEN HOSP T VISIT HIGH/URGE NT SEVERITY HOSPITAL [facility] - 2 2 [facility] OUTPATIEN HOSP T OFFICE 72136 [facility] 2 2 T VISIT 25 MINUTES [facility]OSP[facility] - 2 2 [facility] OUTPATIEN INC T EMERGENCY 46620 [facility] 2 2 [facility] DEPARTMEN INC T VISIT HIGH/URGE NT SEVERITY EMERGENCY 96061 [facility] ZIEGLER DEPT 2 2 EMERGENCY III [facility] HIGH SEVERITY& THREAT FUNCJ OFFICE 59649 [facility] OUT[facility] 2 2 T VISIT 25 MINUTES [facility]OSP[facility] [facility] 2 2 [facility] OUTPATIEN INC T EMERGENCY 98615 [facility] 2 2 [facility] DEPARTMEN INC T VISIT HIGH/URGE NT SEVERITY OFFICE 81362 [facility] OUTPATIEN 2 2 T VISIT 25 MINUTES EMERGENCY 19698 [facility] DEPT 2 2 JEROD VISIT EMERGENCY HIGH PHYS SEVERITY& THREAT FUNJ OFFICE 22250 [facility] OUTPATIEN 2 2 T VISIT 25 MINUTES [address] INPATIENT OFFICE 63435 SCHWARCZ SCHWTINOZ OUTPATIEN 2 2 THO THO T VISIT 25 MINUTES OFFICE 25986 PODIATRIC LILLIANAUJANAK OUTPATIEN 2 2 FOOT & JR THO T VISIT ANKLE 10 SPECI MINUTES OFFICE 15640 [facility] OUTPATI[facility] 2 2 T VISIT 15 MINUTES OFFICE 98599 NEW [facility] OUTPATIEN 2 2 [place] [facility] T VISIT CLINIC 25 PSC MINUTES [facility]OSP[facility] [place] - 2 2 [facility] T OFFICE 14752 [facility] OUTPATI[facility] 2 2 T VISIT 25 MINUTES OFFICE 53803 [facility] BEENA VANEGAS OUTPATIEN 2 2 ONCOLOGY T VISIT ASSOCIATE 15 S MINUTES HOSPITAL [facility] - 2 2 [facility] OUT[facility] T [facility]OSPITAL [facility] - 2 2 [facility] OUTPATIEN [facility]OSP T EMERGENCY 02625 [facility] 2 2 [facility] HOSP T VISIT HIGH/URGE NT SEVERITY OFFICE 68702 [facility] OUTPATIEN 2 2 T VISIT 25 MINUTES EMERGENCY 21815 [facility] 2 [facility] T VISIT HIGH/URGE NT SEVERITY EMERGENCY 59481 PING KOEHLER DEPT 2 2 MEDICAL PAT VISIT GROUP, HIGH PLLC SEVERITY& THREAT FUNJ [facility] [place] - 2 2 [facility]ENC[facility] 59336 [facility] 2 2 [facility] HIGH SEVERITY& THREAT FUNCJ EMERGENCY 42263 ROBBY ALVARADO DEPT 2 2 EMERGENCY OLAG VISIT SERVICES HIGH SEVERITY& THREAT FUNCJ OFFICE 03896 [facility] OUTPATIEN 2 2 [facility] T VISIT CLIN[facility] 40 PSC MINUTES HOSP[facility] [place] - 2 2 [facility] OUTPATIEN INC T EMERGENCY 01316 [place] 2 2 [facility] INC T VISIT HIGH/URGE NT SEVERITY OFFICE 62339 [facility] 2 2 T VISIT 15 MINUTES OFFICE 86795 [facility] 2 2 T VISIT 15 MINUTES EMERGENCY 49842 ROBBY ALVARADO 2 2 EMERGENCY [facility] T VISIT HIGH/URGE NT SEVERITY [facility]OSP[facility] [place] [facility] 2 2 [facility] OUTPATIEN INC T EMERGENCY 97815 [place] 2 2 [facility] LOW/MODER SEVERITY OFFICE 16322 YEYO KENNEY OUTPATIEN 2 2 MD RG VIOLET T NEW 60 PSC MINUTES OFFICE 10558 [facility] OUT[facility]IEN 2 2 T VISIT 15 MINUTES EMERGENCY 06368 ROBBY BOLTON DEPT 2 2 EMERGENCY VISIT SERVICES HIGH SEVERITY& THREAT FUN HOSPITAL [place] - 2 2 [facility] OUTPATIEN INC T EMERGENCY 05604 [place] 2 2 [facility] DEPARTMEN INC T VISIT MODERATE SEVERITY [facility] [place] - 2 2 [facility] T OFFICE 33266 [facility] OUTPATIEN 2 2 T VISIT 25 MINUTES [facility] [place] - 2 2 [facility] T OFFICE 96963 [facility] OUT[facility] 2 2 T VISIT 15 MINUTES [facility] [place] - 2 2 [facility] T OFFICE 40330 [facility] OUT[facility] 2 2 T VISIT 25 MINUTES [facility] [place] - 2 2 [facility] INPATIENT HOSPITAL OFFICE 24862 [facility] OUTPAT[facility] 2 2 T VISIT 15 MINUTES EMERGENCY 74106 [facility] 2 2 [facility] DE[facility]OS[facility] T VISIT LOW/MODER SEVERITY [facility]OSPITAL [facility] - 2 2 [facility] OUT[facility]IEN HOSP T OFFICE 78587 [facility] OUT[facility] 2 2 T VISIT 25 MINUTES EMERGENCY 90559 ROBBY BOLTON 2 2 EMERGENCY DEPARTMEN SERVICES T VISIT HIGH/URGE NT SEVERITY EMERGENCY 17380 ROBBY RUTH DEPT 2 2 EMERGENCY MIGUEL VISIT SERVICES HIGH SEVERITY& THREAT FUNCJ EMERGENCY 40787 [place] 2 2 [facility] DEPARTMEN INC T VISIT HIGH/URGE NT SEVERITY [facility] [place] [facility] 2 2 [facility] OUTPATI[facility] INC T OFFICE 47216 [facility] OUT[facility] 2 2 T VISIT 15 MINUTES [facility] [place] - 1 1 [facility] T EMERGENCY 33054 SOERIKN BAB SOERIKN BAB 1 1 DEPARTMEN T VISIT HIGH/URGE NT SEVERITY [facility] 1 1 [facility] OUTPATIEN INC T EMERGENCY 65324 [facility] 1 1 [facility] DEPARTMEN INC T VISIT MODERATE SEVERITY OFFICE 31407 [facility] 1 1 T VISIT 15 MINUTES OFFICE 68191 [facility] OUT[facility] 1 1 T VISIT 15 MINUTES OFFICE 88893 [facility] OUTPATIEN 1 1 PAIN T VISIT MEDICIINE 15 PSC MINUTES [facility] [place] - 1 1 [facility] T OFFICE 97763 [facility] OUTPATI[facility] 1 1 T VISIT 15 MINUTES OFFICE 34264 [facility] OUTPATI[facility] 1 1 PAIN KEYONNA T VISIT MEDICIINE 25 PSC MINUTES OFFICE 30479 [facility] 1 1 T VISIT 15 MINUTES OFFICE 01540 [facility] OUTPATI[facility] 1 1 T VISIT 15 MINUTES OFFICE 68117 [facility] OUTPATI[facility] 1 1 PAIN KEYONNA T VISIT MEDICIINE 25 PSC MINUTES OFFICE 11108 [facility] OUTPATIEN 1 1 PAIN [place]ON[place] T VISIT MEDICIINE 40 PSC MINUTES OFFICE 51639 [facility] 1 1 T VISIT 15 MINUTES OFFICE 80778 [facility] 1 1 T VISIT 15 MINUTES OFFICE 87169 [facility] 1 1 T VISIT 25 MINUTES HOSP[facility] [place] [facility] 1 1 [facility] OFF[facility] 23375 [facility] 1 1 T VISIT 15 MINUTES OFFICE 82309 [facility] 1 1 T VISIT 25 MINUTES [facility] 1 [facility] T OFFICE 39928 [facility] MUR OUTPATIEN 1 1 T VISIT 25 MINUTES EMERGENCY 37594 [place] 1 1 [facility] T VISIT HIGH/URGE NT SEVERITY HOSPITAL [place] - 1 1 [facility] T
--- OUTSIDE RECORDS SUMMARY | 2017-07-08 11:51 | External Medical Summary Rpt | CCD ---
Author Author , RADHA Organization RADHA Address Unknown Phone [email or web address] Team Providers Care Contract Engineer Name Role Phone BELL VIOLET, BELL VIOLET Unavailable Unavailable [facility], [facility] Unavailable Unavailable [facility], [facility] Unavailable Unavailable RONALDO STEPHANY, RONALDO Unavailable Unavailable STEPHANY [facility] Unavailable Unavailable MEDICIINE [facility], [facility] [employer] Unavailable Unavailable INC, [employer] Unavailable Unavailable INC, [employer] [facility] Unavailable Unavailable PSC, [facility] Unavailable Unavailable [facility], [facility] Unavailable Unavailable ASSOCIATES, [facility] & Unavailable Unavailable CRITICAL, [facility] VERDUGO KEYONNA, VERDUGO Unavailable Unavailable KEYONNA ALEX STA, ALEX Unavailable Unavailable STA BESSON, BESSON Unavailable Unavailable [facility] Unavailable Unavailable IMAGING L, [facility] L [facility] Unavailable Unavailable HOSPITAL, [facility] PH[facility] Unavailable Unavailable PRACTICE L, [facility] BREAZEALE GRA, Unavailable Unavailable BREAZEALE GRA BUX ANJ, BUX ANJ Unavailable Unavailable JOHN CELINA IGN, Unavailable Unavailable JOHN CELINA IGN [facility], Unavailable Unavailable [facility] Unavailable Unavailable PHYS P[facility], [...] [facility] Unavailable Unavailable [place], [facility] [place] SEAN G, ESTRADA G Unavailable Unavailable EVERMAN VIOLET, EVERMAN Unavailable Unavailable VIOLET BALL THO, Unavailable Unavailable BALL THO KLEIN ALI, KLEIN Unavailable Unavailable ALI VANCE SCO, VANCE Unavailable Unavailable SCO GAGUA IRI, GAGUA IRI Unavailable Unavailable FLORY MIGUEL, FLORY Unavailable Unavailable [facility] Unavailable [facility]available [facility], [facility] LINDER ISIDORO, LINDER ISIDORO Unavailable Unavailable ADONAY RHO, ADONAY Unavailable Unavailable RHO GUNDUMALLA GOP, Unavailable Unavailable GUNDUMALLA GOP OBREGON PALMIRA, OBREGON Unavailable Unavailable [facility] Unavailable Unavailable INC, [facility] Unavailable Unavailable HOSPITAL P, [facility] P HARGROVE GUILHERME, HARGROVE GUILHERME Unavailable Unavailable LUIS RADHA, LUIS RADHA Unavailable Unavailable JIM KEITH, JIM KEITH Unavailable Unavailable [facility] Unavailable Unavailable @CTRL BAP, [facility] @CTRL [facility] Unavailable Unavailable [...] Unavailable IMAGING [facility], [facility] Unavailable Unavailable MEDICAL G, [facility] KSEIBI ANA, KSEIBI Unavailable Unavailable [...] LINDA [facility], [facility]ORAT[facility] Unavailable Unavailable AT [facility], [facility] Unavailable Unavailable LABORATO, [facility] Unavailable Unavailable [facility]ATO, [facility] VIJAY GARLAND MD, VIJAY Unavailable Unavailable DDAA SANTOS, KELLY Unavailable Unavailable [facility] Unavailable Unavailable SERVICES, [facility], Unavailable Unavailable PLLC, [facility] Unavailable Unavailable OF [facility], [facility] ANKIT DENISE, ANKIT Unavailable Unavailable DENISE [facility], Unavailable Unavailable [facility], Unavailable Unavailable [facility] Unavailable Unavailable [facility], [facility] Unavailable Unavailable [facility], [facility] PSC PEPE NEVAREZ MD Unavailable Unavailable CONSULTING [...] IV HEN, Unavailable Unavailable [facility] Unavailable Unavailable PUL[facility]ARY, [facility] CHRISTIANO OLGA, CHRISTIANO Unavailable Unavailable OLGA [...] Unavailable Unavailable PHYSICIAN SERVI, [facility], Unavailable Unavailable [facility], Unavailable Unavailable [facility] Unavailable Unavailable CLINIC, [facility] IRVIN RAY, IRVIN Unavailable Unavailable RAY SWINEY, SWINEY Unavailable Unavailable SWINEY PAT, SWINEY Unavailable Unavailable PAT TALANOW ROL, TALANOW Unavailable Unavailable ROL [facility], Unavailable Unavailable [facility] LUDIVINA III Rafael, LUDIVINA Unavailable Unavailable III J TRUE, TRUE Unavailable Unavailable [facility] Unavailable Unavailable [facility], [facility], Unavailable Unavailable [facility] WEHRMAN III OLGA, Unavailable Unavailable WEHRMAN [...] OBSTRUCTIVE PULMONARY DISEASE UNS 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 06-03-2017 [facility] SINGLE PHYSICIAN THYROID PRACTICE L NODULE G250 ESSENTIAL 06-03-2017 [facility] TREMOR PHYSICIAN PRACTICE L G8929 OTHER 06-03-2017 [facility] CHRONIC PHYSICIAN PAIN PRACTICE L M4802 SPINAL 06-03-2017 [facility] STENOSIS PHYSICIAN CERVICAL PRACTICE L REGION N55615 UNSPECIFIED 06-01-2017 [facility] CHRONIC PHYSICIANS, CONJUNCTIVI PLLC TIS BILATERAL I10 ESSENTIAL 06-01-2017 [facility] PRIMARY PHYSICIANS, HYPERTENSIO PLLC N J0100 ACUTE 06-01-2017 [facility] MAXILLARY PHYSICIANS, SINUSITIS PLLC UNSPECIFIED M542 CERVICALGIA 06-01-2017 [facility] PH[facility]ICIANS, PLLC N289 DISORDER OF 05-12-2017 [facility] UNSPECIFIED D6859 OTHER 04-22-2017 [facility] PRIMARY [place] THROMBOPHIL [place]INGS [place] O52997 OTHER LONG 04-22-2017 [facility] TERM [facility] CURRENT HOSPITAL DRUG THERAPY R1012 LEFT UPPER 04-07-2017 [facility] [place] [facility] PAIN R109 UNSPECIFIED 04-07-2017 [facility] N189 CHRONIC 03-17-2017 [facility] [place] DIS[facility] PSC UNSPECIFIED N390 URINARY 03-17-2017 NEW TRACT [place] INFECTION [facility] PSC SITE NOT SPECIFIED R609 EDEMA 03-08-2017 [facility] PRACTICE L J159 UNSPECIFIED 12-17-2016 [facility] BACTERIAL PHYSICIAN PNEUMONIA PRACTICE L J181 LOBAR 12-14-2016 HOSPITAL PNEUMONIA MEDICINE UNSPECIFIED SERVICES O ORGANISM J441 CHRONIC 12-14-2016 HOSPITAL OBSTRUCTIVE MEDICINE PULMONARY SERVICES O DZ W/EXACERBAT ION N179 ACUTE 12-14-2016 [facility] KIDNEY MEDICINE FAILURE SERVICES O UNSPECIFIED I129 HYPERTENSIV 12-12-2016 [facility] E CKD N EMERGENCY W/STAGE 1-4 PHYS CKD OR UNS CKD J189 PNEUMONIA 12-12-2016 [facility] UNSPECIFIED N EMERGENCY ORGANISM PHYS R0602 SHORTNESS 12-12-2016 [facility] OF BREATH N EMERGENCY PHYS R51 HEADACHE 12-12-2016 [facility] [place] RADIOLOGY R918 OTHER 12-12-2016 [facility] [place] NONSPECIFIC RADIOLOGY ABNORMAL FINDING OF LUNG FIELD C649 MALIGNANT 12-07-2016 NEW NEOPLASM [facility] CLINIC PSC EXCEPT RENL PELVIS G4733 OBSTRUCTIVE 12-07-2016 NEW SLEEP [facility] PSC PEDIATRIC R351 NOCTURIA 12-07-2016 NEW [facility] PSC Z8546 PERSONAL 12-07-2016 NEW HISTORY [facility] MALIGNANT CLINIC PSC NEOPLASM OF PROSTATE Z8551 PERSONAL 12-07-2016 NEW HISTORY [facility] MALIGNANT CLINIC PSC NEOPLASM OF BLADDER W11730 PAIN IN 12-01-2016 [place] LEFT MEDICAL SHOULDER IM[facility] ASS H05911 OTHER 12-01-2016 [place] CERVICAL MEDICAL DISC IMAGING ASS DEGENERATIO N AT C5-C6 LEVEL N183 CHRONIC 11-22-2016 [facility] DISEASE OF [place] STAGE 3 MODERATE N3943 POST-VOID 11-22-2016 [facility] DRIBBLING ASSOCIATES OF [place] N401 BENIGN 11-22-2016 NEPHROLOGY PROSTATIC ASSOCIATES HYPERPLASIA OF [place] LW URINARY TRACT SX E119 TYPE 2 11-17-2016 GROSSE ILE DIABETES [facility] P WITHOUT COMPLICATIO NS M791 MYALGIA 11-17-2016 [facility] PH[facility]ICI[facility], [facility] G53873 PAIN IN 11-17-2016 [facility] LEFT ARM PHYSICIANS, [facility] Z794 BUSINESS ANALYTICS INTERN 11-17-2016 [facility] CURRENT USE [facility] P M7989 OTHER 11-15-2016 [facility] SPECIFIED MEM HOSP SOFT TISSUE INC DISORDERS Z720 TOBACCO USE 11-15-2016 [facility] P10663 PERSONAL 11-15-2016 [place] HISTORY OT MEDICAL VENOUS IMAGING ASS THROMBOSIS& EMBOLISM E039 HYPOTHYROID 10-29-2016 LAB [facility] ISM LINDA UNSPECIFIED HOLDINGS G894 CHRONIC 10-29-2016 [place] PAIN PHYSICIAN SYNDROME PRACTICE L C61 MALIGNANT 10-28-2016 NEW NEOPLASM OF [facility] PROSTATE [facility]INIC PSC K219 GASTRO-ESOP 10-15-2016 [facility] H REFLUX MEM HOSP DISEASE INC WITHOUT ESOPHAGITIS M545 LOW BACK 10-15-2016 [facility] PAIN MEM HOS[facility] INC R319 HEMATURIA 10-15-2016 [facility] UNSPECIFIED MEM HOSP INC Z721 10-15-2016 [facility] Z7901 RESIDENTIAL 10-15-2016 [facility] CURRENT USE MEM HOSP OF INC ANTICOAGULA NTS Z791 RESIDENTIAL 10-15-2016 [facility] CURR MEM HOS[facility] NON-STEROID INC AL&ANTI-INF LAMMATORIES L0211 CUTANEOUS 06-23-2016 [facility] ABSCESS OF MEM HOSP NECK INC C641 MALIGNANT 06-01-2016 NEPHROLOGY NEOPLASM RT ASSOCIATES KIDNEY OF [place] EXCEPT RENAL PELVIS C679 MALIGNANT 06-01-2016 NEPHROLOGY NEOPLASM OF ASSOCIATES BLADDER OF [place] UNSPECIFIED R079 CHEST PAIN 03-11-2016 ST [facility] UNSPECIFIED EAST R9431 ABNORMAL 03-11-2016 [facility] ELECTROCARD [facility] IOGRAM M4722 OT 03-04-2016 [facility] ANA SPONDYLOSIS W/RADICULOP ATHY CERVICAL REGION M4727 OTH 03-04-2016 [facility] ANA SPONDYLOSIS W/RADICULOP ATHY LUMBOSACRAL RGN E042 NONTOXIC 02-09-2016 NEUR[facility]IAGNO MULTINODULA STICS INC R GOITER J341 CYST AND 02-09-2016 NEURODIAGNO MUCOCELE OF STICS INC NOSE AND NASAL SINUS J342 DEVIATED 02-09-2016 [facility] NASAL STICS INC SEPTUM R9082 WHITE 02-09-2016 NEURODIAGNO MATTER STICS INC DISEASE UNSPECIFIED L66220 PRESENCE OF 02-03-2016 [place] OTHER HEALTH VASCULAR MEDICAL G IMPLANTS AND GRAFTS D3002 BENIGN 01-28-2016 [facility] NEOPLASM OF REGIONAL LEFT IMAGING L KIDNEY J88543D OTHER [facility] 01-28-2016 [facility] COMP REGIONAL UMBRELLA IMAGING L DEVICE INITIAL ENCNTR J984 OTHER 12-30-2015 [facility] DISORDERS HEALTH OF L[facility]G [facility] R0600 DYSPNEA 12-30-2015 [facility] UNSPECIFIED HEALTH [facility] 4019 UNSPECIFIED 05-22-2015 [facility] [place] ESSENTIAL HYPERTENSIO CONSULTING N SRV 95268 PRECORDIAL 05-22-2015 [facility] [place] PAIN CONSULTING SRV 0539 HERPES 05-20-2015 [facility] ZOSTER [facility] WITHOUT INC MENTION OF COMPLICATIO N 496 CHRONIC 05-20-2015 [facility] AIRWAY [facility]OS[facility] OBSTRUCTION INC NEC 7823 EDEMA 05-20-2015 [facility] 50440 SHORTNESS 05-20-2015 [facility] ILE OF BREATH MEM HOSP INC 13103 DIAB W/O 05-12-2015 [facility] COMP TYPE N PHYSICIAN II/UNS NOT SERVI STATED UNCNTRL 64239 OBESITY, 05-12-2015 [facility] UNSPECIFIED N PHYSICIAN SERVI 49219 OBSTRUCTIVE 05-12-2015 [facility] CHRONIC N PHYSICIAN BRONCHITIS SERVI WITH EXACERBATIO N 98194 OTHER 05-12-2015 [facility] ABNORMAL N PHYSICIAN GLUCOSE SERVI 97196 HYPERTROPHY 04-24-2015 NEW PROSTATE [place] W/O UR OBST CLINIC PSC & OTH LUTS V1051 PERSONAL 04-24-2015 NEW HISTORY [facility] MALIGNANT CLINIC PSC NEOPLASM BLADDER 185 MALIGNANT 04-10-2015 NEW NEOPLASM OF [facility] PROSTATE CLINIC PSC 1889 MALIGNANT 04-10-2015 NEW NEOPLASM OF [facility] BLADDER CLINIC PSC PART UNSPECIFIED 1890 MALIGNANT 04-10-2015 NEW NEOPLASM OF [facility]NEY [facility] PSC EXCEPT PELVIS 30609 HYPERTROPHY 04-10-2015 NEW PROSTATE [place] W/UR OBST & CLINIC PSC OTH LUTS 7226 DEGENERATIO 04-01-2015 ADV[facility]ED N TECHNOLOGIE INTERVERTEB S INC RAL DISC SITE UNSPEC 57180 POSTLAMINEC 04-01-2015 [facility] SYNDROME INC CERVICAL REGION V571 OTHER 04-01-2015 [facility] MEM HOSP THERAPY INC 11887 DEGEN 03-24-2015 VIJAY GARLAND LUMBAR/LUMB OSACRAL INTERVERTEB RAL DISC 18464 POSTLAMINEC 03-24-2015 VIJAY HOBSON MD SYNDROME LUMBAR REGION 7244 THORACIC/ELEONORA 03-24-2015 VIJAY BUSTOS MD NEURITIS/RA DICULITIS UNSPEC 7231 CERVICALGIA 02-24-2015 [facility] 7840 HEADACHE 02-24-2015 [facility] I[facility]OS[facility] INC 7224 DEGENERATIO 01-16-2015 NEURODIAGNO N OF STICS INC CERVICAL INTERVERTEB RAL DISC 64154 MIGRAINE 12-03-2014 [facility] W/O HOSPITAL INTRACTBL W/STATUS MIGRAINOSUS 4010 ESSENTIAL 12-03-2014 [facility] N, MALIGNANT 5849 ACUTE 12-03-2014 [facility] KIDNEY [facility] FAILURE UNSPECIFIED 7820 DISTURBANCE 12-03-2014 [facility] 97768 NAUSEA WITH 12-03-2014 [facility] V1255 PERSONAL 12-03-2014 [facility] PULMONARY EMBOLISM V4573 ACQUIRED 12-03-2014 [facility] KIDNEY V1046 PERSONAL 11-26-2014 NEW HISTORY [facility] MALIGNANT CLINIC PSC NEOPLASM PROSTATE V1052 PERSONAL 11-26-2014 NEW HISTORY OF [facility] MALIGNANT CLINIC PSC NEOPLASM OF KIDNEY 0010 CHOLERA DUE 10-28-2014 [facility] TO [facility] CHOLERAE LABORATO 7242 LUMBAGO 08-25-2012 [facility] 74244 CHEST PAIN 08-25-2012 [facility] UNSPECIFIED V5861 LONG-TERM 08-25-2012 [facility] (CURRENT) PHYSICIANS USE OF LA ANTICOAGULA NTS 13205 OBSTRUCTIVE 08-09-2012 [facility] SLEEP HOME APNEA MEDICAL EQUIPME 5119 UNSPECIFIED 08-09-2012 [facility] PLEURAL HOME EFFUSION MEDICAL EQUIPME 2270 BENIGN 08-04-2012 JIM KEITH NEOPLASM OF ADRENAL GLAND 34015 HEMATURIA 08-04-2012 JIM KEITH UNSPECIFIED 6822 CELLULITIS 08-04-2012 [facility] AND ABSCESS [facility] 7078 CHRONIC 08-04-2012 [facility] ULCER OF [facility] OTHER HOSP SPECIFIED SITE 49338 OTHER 08-04-2012 [facility] POSTOPERATI [facility] VE HOSP INFECTION NEC 28642 DIAB W/O 08-03-2012 [facility] COMP TYPE I HOME [JUV] NOT MEDICAL STATED EQUIPME UNCNTRL 79822 OTHER 07-27-2012 [facility] CHRONIC PAIN 68875 INTESTINAL 06-30-2012 [facility] INFECTIONS EMERGENCY DUE SERVICES CLOSTRIDIUM DIFFICILE 5589 OTH&UNSPEC 06-30-2012 [facility] NONINFECTIO MEM HOSP US INC GASTROENTER ITIS&COLITI S 5699 UNSPECIFIED 06-30-2012 [place] DISORDER MEDICAL OF IMAGING ASS INTESTINE 5920 CALCULUS OF 06-30-2012 [place] [facility] 80919 NAUSEA 06-30-2012 [facility] 42633 DIARRHEA 06-30-2012 [facility] 7891 HEPATOMEGAL 06-30-2012 [place] Y [facility]ICAL [facility] 39573 OTHER 06-27-2012 [facility] MALAISE AND PHYSICIANS FATIGUE LA 2859 UNSPECIFIED 06-16-2012 [facility] ANEMIA 586 UNSPECIFIED 06-16-2012 [facility] RENAL FAILURE V0481 NEED 06-16-2012 [facility] PROPHYLACTI C VACCINATION &INOCULATIO N FLU 8795 OPEN WOUND 06-14-2012 [facility] OF THERAPEUTIC ABDOMINAL SER INC WALL LATERAL COMPLICATED 22347 NON-HEALING 06-14-2012 [facility] SURGICAL THERAPEUTIC WOUND NEC SER INC 71674 DIAB W/O 06-11-2012 [facility] MENTION N EMERGENCY COMP TYPE PHYS II/UNS TYPE UNCNTRL 6829 CELLULITIS 06-11-2012 [facility] [place] AND ABSCESS RADIOLOGY OF UNSPECIFIED SITE 9642 POISONING 06-11-2012 [place] BY INPATIENT ANTICOAGULA MEDICINE NTS 5939 UNSPECIFIED 06-02-2012 [facility] DISORDER OF KIDNEY AND URETER 21083 ACUTE 05-25-2012 [facility] FAILURE PULMONARY 30542 OTHER 05-22-2012 [facility] [place] NONSPECIFIC RADIOLOGY ABNORMAL FINDING OF LUNG FIELD 4264 RIGHT 05-21-2012 NEW BUNDLE [facility] BLOCK 2762 ACIDOSIS 05-20-2012 [facility] PULMONARY 4011 ESSENTIAL 05-20-2012 [place] HYPERTENSIO INPATIENT N, BENIGN MEDICINE 49243 FEVER 05-20-2012 [facility] PULMONARY 5180 PULMONARY 05-19-2012 [facility] [place] COLLAPSE RADIOLOGY 54977 SEPSIS 05-19-2012 [facility] PULMONARY 89405 OTHER ACUTE 05-18-2012 [facility]OC[facility] POSTOPERATI [facility] VE PAIN V5881 FITTING AND 05-18-2012 [facility] [place] ADJUSTMENT RADIOLOGY OF VASCULAR CATHETER 0389 UNSPECIFIED 05-17-2012 [facility] SEPTICEMIA [facility] 30447 ENCEPHALOPA 05-17-2012 [facility] UNSPECIFIED 55303 OTHER 05-17-2012 NEW SPECIFIED [facility] CARDIAC CLINIC [facility] DYSRHYTHMIA S 5845 ACUTE 05-17-2012 [facility] KIDNEY [facility] FAILURE W/LESION TUBULAR NECROSIS 5932 ACQUIRED 05-17-2012 [facility] CYST OF [facility] KIDNEY 22647 SEVERE 05-17-2012 [facility] SEPSIS [facility] 9975 URINARY 05-17-2012 [facility] COMPLICATIO [facility] NS NEC 5969 UNSPECIFIED 05-16-2012 NEW DISORDER [facility] OF BLADDER CLINIC PSC V1251 PERSONAL 05-16-2012 [facility] HISTORY, THO VENOUS THROMBOSIS AND EMBOLISM V4589 OTHER 05-16-2012 [facility] POSTSURGICA THO L STATUS OTHER V7283 OTHER 05-16-2012 [facility] [place] SPECIFIED RADIOLOGY PRE-OPERATI VE EXAMINATION V7284 UNSPECIFIED 05-16-2012 NEW [facility] PRE-OPERATI CLINIC [facility] VE EXAMINATION 99223 NEOPLASM OF 04-24-2012 PODIATRIC UNCERTAIN FOOT & BEHAVIOR OF ANKLE SPECI KIDNEY&URET ER 1888 MALIGNANT 04-13-2012 NEW NEOPLASM [facility] OTHER CLINIC PSC SPECIFIED SITES BLADDER 59760 OTHER 04-06-2012 [facility] PULMONARY EMBOLISM AND INFARCTION 66090 AC JOE 04-06-2012 [facility] [facility]ROM[facility] HOLDINGS UNSPEC DEEP VES LOWER EXT V5869 LONG-TERM 04-06-2012 [facility] (CURRENT) [facility] USE OF HOSPITAL OTHER MEDICATIONS V711 OBSERVATION 04-06-2012 [facility] [place] FOR RADIOLOGY SUSPECTED MALIGNANT NEOPLASM 4168 OTHER 04-03-2012 [facility] CHRONIC [facility] PULMONARY HOSP HEART DISEASES 4280 CONGESTIVE 04-03-2012 [facility] HEART CARDIOLOGY FAILURE AT [facility] UNSPECIFIED 4293 CARDIOMEGAL 04-03-2012 [facility] Y [facility] 4539 EMBOLISM 04-03-2012 [facility] AND ONCOLOGY THROMBOSIS ASSOCIATES OF UNSPECIFIED SITE 90785 OTHER 03-29-2012 [facility] DYSPNEA AND EMERGENCY [place] [address] ABNORMAL 03-29-2012 [facility] COAGULATION [facility] PROFILE HOSP 7245 UNSPECIFIED 03-20-2012 [facility] [place] 7295 PAIN IN 03-20-2012 [facility] SOFT MEDICAL TISSUES OF GROUP, PLLC LIMB 17666 ABDOMINAL 03-20-2012 [facility] [place] PAIN OTHER RADIOLOGY SPECIFIED SITE 5859 CHRONIC 03-14-2012 HOSP KIDNEY MEDICINE DISEASE SERV @CTRL UNSPECIFIED BAP 55615 HTN CKD UNS 03-08-2012 [facility] W/CKD [facility] STAGE I HOSP THRU STAGE IV/UNS 4162 CHRONIC 03-08-2012 [facility] PULMONARY PULMONARY & EMBOLISM CRITICAL 4242 TRICUSPID 03-08-2012 [facility] VALVE CARDIOLOGY DISORDERS AT [facility] SPEC NONRHEUMATI C 62969 CHRN VNUS 03-08-2012 [facility] THROMB DEEP ASSOCIATES VES PROX LOWR EXTREM 02433 OBSTRUCTIVE 03-08-2012 [facility] CHRONIC PULMONARY & BRONCHITIS CRITICAL WITHOUT EXACERBAT 23223 CHRONIC 03-08-2012 [facility] RESPIRATORY [facility] FAILURE HOSP 43943 HYPOXEMIA 03-08-2012 [facility] PULMONARY & CRITICAL V462 DEPENDENCE 03-08-2012 [facility] ON MACHINE [facility] FOR HOSP SUPPLEMENTA L OXYGEN V8541 BODY MASS 03-08-2012 [facility] INDEX [facility] 40.0-44.9 HOSP ADULT 486 PNEUMONIA, 03-02-2012 [facility] ORGANISM EMERGENCY UNSPECIFIED SERVICES 5183 PULMONARY 03-02-2012 [place] EOSINOPHILI MEDICAL A IMAGING ASS 75225 OTHER 03-02-2012 [place] DISEASES OF MEDICAL LUNG NOT IMAGING ASS ELSEWHERE CLASSIFIED 7969 OTHER 03-02-2012 LABORATORY NONSPECIFIC [facility] OF ABNORMAL LINDA H FINDING 7238 OTHER 02-10-2012 [facility] SYNDROMES AFFECTING CERVICAL REGION 4619 ACUTE 02-09-2012 [place] SINUSITIS, EMERGENCY UNSPECIFIED SERVICES 7804 DIZZINESS 01-29-2012 NEURODIAGNO AND [facility] GIDDINESS 64984 OTHER 01-28-2012 [place] DISEASES OF MEDICAL NASAL IMAGING ASS CAVITY AND SINUSES 7842 SWELLING 01-28-2012 [place] MASS OR MEDICAL LUMP IN IMAGING ASS HEAD AND NECK 28172 ATRIAL 01-11-2012 [facility] FIBRILLATIO [facility] 4519 PHLEBITIS&T 01-10-2012 [facility] CARDIOLOGY ITIS OF CLINIC UNSPECIFIED SITE 4536 VENOUS EMBO 01-10-2012 [facility] & [facility] SUPERFICIAL HOSPITAL VES LOWR EXTREM 41638 UNSPECIFIED 12-28-2011 [facility] DIASTOLIC [facility] HEART [facility] FAILURE 7850 UNSPECIFIED 12-28-2011 [place] [facility] TACHYCARDIA SERVICES 3320 PARALYSIS 12-17-2011 [facility] AGITANS 2724 OTHER AND 11-30-2011 [facility] UNSPECIFIED [facility] HOSP HYPERLIPIDE GONZÁLEZ 89825 DEHYDRATION 11-30-2011 [facility] 490 BRONCHITIS 11-30-2011 [facility] NOT [facility] SPECIFIED HOSP ACUTE OR CHRONIC V1089 PERSONAL 11-30-2011 [facility] HISTORY [facility] MALIGNANT HOSP NEOPLASM OTHER SITE V5866 LONG-TERM 11-30-2011 [facility] USE OF [facility] 462 ACUTE 11-29-2011 [facility] PHARYNGITIS 4871 INFLUENZA 11-29-2011 [facility] WITH OTHER RESPIRATORY MANIFESTATI ONS 14552 MUSCLE 11-29-2011 [place] WEAKNESS EMERGENCY (GENERALIZE SERVICES D) 4660 ACUTE 11-18-2011 [facility] BRONCHITIS 26058 ASTHMA, 11-08-2011 [place] UNSPECIFIED EMERGENCY , SERVICES UNSPECIFIED STATUS V1559 PERSONAL 09-24-2011 [facility] HISTORY OF COMMUNITY OTHER HOSPITAL INJURY 72243 UNSPECIFIED 09-19-2011 [facility] RETENTION OF URINE 3384 CHRONIC 07-29-2011 [facility] SYNDROME MEDICIINE PSC 3538 OTHER NERVE 07-29-2011 [facility] ROOT AND PAIN PLEXUS MEDICIINE DISORDERS PSC 7210 CERVICAL 07-29-2011 [facility] SPONDYLOSIS PAIN WITHOUT MEDICIINE MYELOPATHY PSC 7232 CERVICOCRAN 07-29-2011 [facility] IAL PAIN SYNDROME MEDICIINE PSC 2449 UNSPECIFIED 07-26-2011 [facility] HYPOT[facility]OSPITAL ISM 5990 URINARY 07-26-2011 [place] TRACT [facility] INFECTION HOSPITAL SITE NOT SPECIFIED 7241 PAIN IN 07-26-2011 [facility] [place] THORACIC RADIOLOGY SPINE 67984 OTHER CHEST 07-26-2011 [facility] HOSPITAL 7810 ABNORMAL 07-20-2011 [place] INVOLUNTARY MOVEMENTS 7213 LUMBOSACRAL 04-28-2011 [facility] SPONDYLOSIS MEDICIINE WITHOUT PSC MYELOPATHY 7220 DISPLCMT 04-28-2011 [facility] CERV PAIN INTERVERT MEDICIINE DISC PSC WITHOUT MYELOPATHY 7246 DISORDERS 04-28-2011 [facility] OF SACRUM PAIN MEDICIINE PSC 43648 ABDOMINAL 03-16-2011 NEURODIAGNO PAIN, STICPSC GENERALIZED V7644 SPECIAL 03-04-2011 [facility] SCREENING [facility] HOLDING NEOPLASM OF PROSTATE 95864 ABDOMINAL 02-26-2011 [place] PAIN, UNSPECIFIED SITE 81903 ABDOMINAL 02-26-2011 [place] PAIN RIGHT [facility] UPPER HOSPITAL QUADRANT 73867 ABDOMINAL 02-26-2011 [facility], [facility] PERIUMBILIC [facility] 8628 INJR MX&UNS 02-26-2011 [place] INTRATHR COMMUNITY ORGN W/O HOSPITAL OPN WND IN CAV 9269 CRUSHING 02-26-2011 [facility] IN[facility] OF [facility] UNSPECIFIED HOSPITAL SITE OF TRUNK 6029 UNSPECIFIED 02-18-2011 [place] DISORDER OF PROSTATE 1560 MALIGNANT 02-17-2011 [facility] NEOPLAS[facility] HOSPITAL GALLBLADDER 1980 SECONDARY 02-17-2011 [place] MALIGNANT [facility] NEOPLASM OF HOSPITAL KIDNEY 7862 COUGH 02-17-2011 [facility] Medications Na ND Rx Da Fi [...] 0 30 30 EA 24 WE Ac DC 25 -0 -[address] [...] O2 SYS RENT; [place] [address] [place] TRUE ABDOMEN & 7 MEDICAL PELVIS SERV W/O FOUNDATIO CONTRAST N MATERIAL PROTHROMB 54308 [facility] IN TIME 7 [facility] DRUG TEST 86154 NYES QUICK PRSMV 7 [facility] CHEMISTRY ANALYZERS PRTBLE [id number] [facility] GASEOUS 7 O2 SYS RENT; FLWMTR HUMIDFR&M ASK O2 CON[facility] 1 E1390 [facility] DEL PORT 7 85%/>02 [facility] [place] [address] [facility] [place] SCALF ABDOMEN & 7 RADIOLOGY PELVIS W/O CONTRAST MATERIAL URNLS DIP 00734 STEPHANIE SILVA [address] [place] [address] STICK/TAB CLINIC LET RGNT PSC AUTO W/O MICROSCOP Y CULTURE 95803 [facility] BACTERIAL 7 CLINIC CLINIC LABORATO LABORATO QUANTTATI VE COLONY COUNT URINE O2 CONC 1 [id number] [facility] DEL PORT 7 85%/>02 [facility] FLW RATE PRTBLE E0431 [facility] GASEOUS 7 O2 SYS RENT; FLWMTR HUMIDFR&M ASK DRUG TST [id number] [facility] DEFINITV [address] ID HOLDINGS HOLDINGS METH P DAY 22/MORE DR CL DRUG TEST [id number] [facility] PRSMV 7 [facility] LINDA INSTRMNT [facility] HOLDINGS CHEMISTRY ANALYZERS PROTHROMB 11471 [facility] IN TIME 7 LINDA LINDA [facility] HOLDINGS COLLECTIO 62721 YNES Ma VENOUS 7 PHYSICIAN BLOOD PRACTICE VENIPUNCT L URE PROTHROMB 03-28-201 58297 [facility] LAB [facility] IN TIME 7 LINDA LINDA [facility] INITIAL 36117 [facility] 7 MEDICINE CARE/[place] [address] [place] [address] [facility] [place] SCALF HEAD/BRAI 7 RADIOLOGY N W/O CONTRAST MATERIAL RADIOLOGI 29360 [facility] [place] SCALF C 7 RADIOLOGY EXAMINATI ON CHEST SINGLE VIEW FRONTAL ECG 97314 [facility] ROUTINE 7 JEROD ECG EMERGENCY W/LEAST PHYS 12 LDS I&R ONLY RADEX 18875 [place] [facility] SPINE 7 MEDICAL CERVICAL IMAGING 2 OR 3 ASS VIEWS RADEX 73597 [place] SHOULDER 7 MEDICAL COMPLETE IMAGING MINIMUM 2 ASS VIEWS ECG 90864 [facility] VERDUGO ROUTINE 7 [facility] W/LEAST P 12 LDS I&R ONLY DUP-SCAN 70036 [place] XTR VEINS 7 MEDICAL IMAGING UNILATERA ASS L/LIMITED STUDY PROTHROMB 90138 LAB [facility] LAB [facility] IN TIME 7 [facility] LINDA [facility] HOLDINGS PROTHROMB 13792 LAB [facility] LAB [facility] IN TIME 7 [facility] [place] [address] LAB [facility] THYROID 7 [facility] STIMULATI HOLDINGS HOLDINGS NG HORMONE TSH COLLECTIO 60218 YNES Ma VENOUS 7 PHYSICIAN BLOOD [place] [address] LAB [facility] THYROXINE 7 [facility] TOTAL HOLDINGS HOLDINGS URNLS DIP 92012 STEPHANIE SILVA 7 [facility] STICK/TAB CLINIC LET RGNT PSC AUTO W/O MICROSCOP Y BLOOD [address] COUNT 7 [facility] COMPLETE INC INC AUTO&AUTO DIFRNTL WBC URNLS DIP [address] 7 [facility] STICK/TAB INC INC LET REAGENT AUTO MICROSCOP Y COMPREHEN [address] SIVE 7 [facility] METABOLIC INC INC PANEL PROTHROMB [address] IN TIME 7 [place] [address] LIPASE 7 [place] [address] ABDOMEN & 7 [facility] PELVIS INC INC W/O CONTRAST MATERIAL CYSTOURET 33735 [facility] HROSCOPY 6 [facility] PSC PSC THERAPEUT 34972 [place] 1/> 6 [facility] EACH 15 MIN EXERCISES E-STIM G0283 [place] 1/> AREAS 6 [facility] WND CARE PART TX PLAN E-STIM G0283 [place] 1/> AREAS 6 [facility] WND CARE PART TX PLAN THERAPEUT 03328 [place] 1/> 6 [facility] EACH 15 MIN EXERCISES THERAPEUT 68250 [place] 1/> 6 [facility] EACH 15 MIN EXERCISES E-STIM G0283 [place] 1/> AREAS 6 [facility] WND CARE PART TX PLAN E-STIM G0283 [place] 1/> AREAS 6 [facility] WND CARE PART TX PLAN PHYSICAL 30081 [place] THERAPY 6 [facility] N COLLECTIO [address] N VENOUS 6 [facility] BLOOD INC INC VENIPUNCT URE THYROID [address] HORM 6 [facility] UPTK/THYR INC INC OID HORMONE BINDING RATIO BLOOD [address] COUNT 6 [facility] COMPLETE INC INC AUTO&AUTO DIFRNTL WBC COMPREHEN [address] SIVE 6 [facility] [place] [address] THYROID 6 [facility] STIMULAT[place] [address] THYROXINE 6 [facility] TOTAL INC INC DRAINAGE [id number] ARIANA ARIANA OF NECK 6 [facility] SKIN INC INC EXTERNAL US SOFT 16441 [facility] TISSUE 6 N N HEAD & COMMUNTIY COMMUNTIY NECK REAL HOSPITA HOSPITA TIME IMGE DOCM THROMBOPL 67365 [facility] ASTIN 6 N N TIME COMMUNTIY COMMUNTIY PARTIAL HOSPITA HOSPITA PLASMA/[place] [address] [facility] MAXILLOFA 6 N N CIAL W/O COMMUNTIY COMMUNTIY CONTRAST HOSPITA HOSPITA MATERIAL PROTHROMB 51507 [facility] IN TIME 6 N N COMMUNTIY COMMUNTIY HOSPITA HOSPITA BLOOD 38097 [facility] COUNT 6 N N COMPLETE COMMUNTIY COMMUNTIY AUTO&AUTO HOSPITA HOSPITA DIFRNTL WBC COLLECTIO 79983 [facility] N VENOUS 6 N N BLOOD COMMUNTIY COMMUNTIY VENIPUNCT HOSPITA HOSPITA URE INJECTION J2785 [facility] 6 [facility] [place] [place] 0.1 MG CV STRS 10484 [facility] TST 6 [facility] XERS&/OR RX CONT ECG TRCG ONLY TECHNETIU A9502 [facility] TC-[address]M [address] [place] [address] TETROFOSM IN DX PER STUDY DOSE MYOCARDIA 77634 [facility] SPECT 6 [facility] MULTIPLE STUDIES MRI ORBIT 68312 NEURODIAG SUN [facility] FACE & 6 NOSTICS NECK W/O INC & W/CONTRAS T MATRL US SOFT 77987 NEURODIAG [facility] [place] TISSUE 6 NOSTICS HEAD & [place] [address] [facility] REGIONAL LD IV ALL PELVIS IMAGING W/O L CONTRST 1/> BODY RE RADIOLOGI 45489 MAN[facility]EISM MANDAEISM C EXAM 6 [facility]ST 2 [facility] VIEWS FRONTAL&L ATERAL XENON A9558 MAN[facility]EISM MANDAEISM XE-133 6 [facility] DIAGNOSTI C PER [address] [place] [address] MANDAEISM MANDAEISM TRACT 6 [facility] W/WO DELAYED IMAGES W/KUB TECHNETIU A9540 MANDAEISM MANDAEISM M TC-99M [address] [place] [address] MAA DX [facility] STDY DOSE UP TO 10 MCI PULMONARY 02155 MANDAEISM MANDAEISM [address] [place] [address] V[facility]ILATI [facility] ON & PERFUSION IMAGING NEBULIZER E0570 [facility] WITH 6 COMPRESSO R ECG 04291 PEPE NEVAREZ NEVAREZ PEPE ROUTINE 5 MD ECG CONSULTIN W/LEAST G SRV 12 LDS W/I&R ECHO 58193 PEPE NEVAREZ NEVAREZ PEPE TTHRC R-T 5 2D CONSULTIN W/WOM-MOD G SRV E COMPL SPEC&COLR D ECG [address] ROUTINE 5 [facility] ECG INC INC W/LEAST 12 LDS TRCG ONLY W/O I&R BLOOD [address] COUNT 5 [facility] COMPLETE INC INC AUTO&AUTO DIFRNTL WBC NATRIURET [address] IC 5 [facility] [place] [address] TROPONIN 5 [facility] QUANTITAT INC INC JOANIE PROTHROMB [address] IN TIME 5 [facility] INC INC CREATINE [address] KINASE 5 [facility] TOTAL INC INC CREATINE [address] KINASE MB 5 [facility] FRACTION INC INC ONLY COMPREHEN [address] SIVE 5 [facility] METABOLIC INC INC PANEL RADIOLOGI 62397 [facility]ANA Daniel EXAM 5 [facility] CHEST 2 INC INC VIEWS FRONTAL&L ATERAL RADIOLOGI [address] C 5 [facility] EXAMINATI INC INC ON CHEST [facility] 75235 [facility] DISCHARGE 5 JEROD PATRICK DAY PHYSICIAN MANAGEMEN SERVI T > [address] [facility] 5 JEROD CELINA IGN CARE/DAY PHYSICIAN 25 SERVI MIN[address]ES SBSQ 35528 [facility] 5 JEROD CELINA IGN CARE/DAY PHYSICIAN 25 SERVI MINUTES INITIAL 93604 [facility] 5 JEROD A GOP CARE/DAY PHYSICIAN 70 SERVI MINUTES ECG 15495 [facility] 5 JEROD A GOP ECG PHYSICIAN W/LEAST SERVI 12 LDS I&R ONLY CYSTOURET 71994 STEPHANIE SILVA HROSCOPY 5 [facility] PSC APPL [address] MODALITY 5 [facility] 1/> AREAS INC INC ELEC STIMJ UNATTENDE D PHYSICAL [address] THERAPY 5 [facility] EVALUATIO INC INC N APPLICATI [address] ON 5 [facility] MODALITY INC INC 1/> AREAS HOT/COLD PACKS APPL [address] MODALITY 5 [facility] 1/> AREAS INC INC ULTRASOUN D EA 15 MIN URNLS DIP 92151 STEPHANIE RICARDO 5 BOZ[facility] JUS STICK/TAB CLINIC LET RGNT PSC AUTO W/O MICROSCOP Y APPL [address] MODALITY 5 [facility] 1/> AREAS INC INC ELEC STIMJ UNATTENDE D THERAPEUT [address] IC PX 1/> 5 [facility] AREAS INC INC EACH 15 MIN EXERCISES APPL [address] MODALITY 5 [facility] 1/> AREAS INC INC ULTRASOUN D EA 15 MIN [address]ICATI [address] ON 5 [facility] MODALITY INC INC 1/> AREAS HOT/COLD PACKS APPLICATI [address] ON 5 [facility] MODALITY INC INC 1/> AREAS HOT/COLD PACKS APPL [address] MODALITY 5 [facility] 1/> AREAS INC INC ULTRASOUN D EA 15 MIN THERAPEUT [address] IC PX 1/> 5 [facility] AREAS INC INC EACH 15 MIN EXERCISES APPL [address] MODALITY 5 [facility] 1/> AREAS INC INC ELEC STIMJ UNATTENDE D APPL [address] MODALITY 5 [facility] 1/> AREAS INC INC ELEC STIMJ UNATTENDE D THERAPEUT [address] IC PX 1/> 5 [facility] AREAS INC INC EACH 15 MIN EXERCISES APPLICATI [address] ON 5 [facility] MODALITY INC INC 1/> AREAS HOT/COLD PACKS LUMB L0627 ADVANCED ADVANCED ORTHOSIS 5 TECHNOLOG TECHNOLOG SAGIT IES INC IES INC CNTRL RIGID A&P PANEL PREFAB ORTHOTIC [address] MGMT&IKE 5 [facility] [place] UXTR INC INC LXTR&/TRN K EA [address] MODALITY 5 [facility] 1/> AREAS INC INC ULTRASOUN D EA 15 MIN THERAPEUT [address] IC PX 1/> 5 [facility] AREAS INC INC EACH 15 MIN EXERCISES APPL [address] MODALITY 5 [facility] 1/> AREAS INC INC ELEC STIMJ UNATTENDE D APPL [address] MODALITY 5 [facility] 1/> AREAS INC INC ELEC STIMJ UNATTENDE D THERAPEUT [address] IC PX 1/> 5 [facility] AREAS INC INC EACH 15 MIN EXERCISES APPL [address] MODALITY 5 [facility] 1/> AREAS INC INC ULTRASOUN D EA 15 MIN APPL [address] MODALITY 5 [facility] 1/> AREAS INC INC ULTRASOUN D EA 15 MIN APPLICATI [address] ON 5 [facility] MODALITY INC INC 1/> AREAS HOT/COLD PACKS THERAPEUT [address] IC PX 1/> 5 [facility] AREAS INC INC EACH 15 MIN EXERCISES APPL [address] MODALITY 5 [facility] 1/> AREAS INC INC ELEC STIMJ UNATTENDE D APPL 00416 [address] MODALITY 5 [facility] 1/> AREAS INC INC ELEC STIMJ UNATTENDE D THERAPEUT [address] IC PX 1/> 5 [facility] AREAS INC INC EACH 15 MIN EXERCISES APPLICATI [address] ON 5 [facility] MODALITY INC INC 1/> AREAS HOT/COLD PACKS APPL [address] MODALITY 5 [facility] 1/> AREAS INC INC ULTRASOUN D EA 15 MIN APPL [address] MODALITY 5 [facility] 1/> AREAS INC INC ULTRASOUN D EA 15 MIN THERAPEUT [address] IC PX 1/> 5 [facility] AREAS INC INC EACH 15 MIN EXERCISES APPL [address] MODALITY 5 [facility] 1/> AREAS INC INC ELEC STIMJ UNATTENDE D APPL [address] MODALITY 5 [facility] 1/> AREAS INC INC ELEC STIMJ UNATTENDE D THERAPEUT [address] IC PX 1/> 5 [facility] AREAS INC INC EACH 15 MIN EXERCISES APPL [address] MODALITY 5 [facility] 1/> AREAS INC INC ULTRASOUN D EA 15 MIN APPL [address] MODALITY 5 [facility] 1/> AREAS INC INC ULTRASOUN D EA 15 MIN THERAPEUT [address] IC PX 1/> 5 [facility] AREAS INC INC EACH 15 MIN EXERCISES APPL [address] MODALITY 5 [facility] 1/> AREAS INC INC ELEC STIMJ UNATTENDE D THERAPEUT [address] IC PX 1/> 5 [facility] AREAS INC INC EACH 15 MIN EXERCISES APPL [address] MODALITY 5 [facility] 1/> AREAS INC INC ELEC STIMJ UNATTENDE D APPL [address] MODALITY 5 [facility] 1/> AREAS INC INC ULTRASOUN D EA 15 MIN APPLICATI [address] ON 5 [facility] MODALITY INC INC 1/> AREAS HOT/COLD PACKS APPL [address] MODALITY 5 [facility] 1/> AREAS INC INC ULTRASOUN D EA 15 MIN APPL [address] MODALITY 5 [facility] 1/> AREAS INC INC ELEC STIMJ UNATTENDE D THERAPEUT [address] IC PX 1/> 5 [facility] AREAS INC INC EACH 15 MIN EXERCISES THERAPEUT [address] IC PX 1/> 5 [facility] AREAS INC INC EACH 15 MIN EXERCISES APPL [address] MODALITY 5 [facility] 1/> AREAS INC INC ELEC STIMJ UNATTENDE D APPL [address] MODALITY 5 [facility] 1/> AREAS INC INC ULTRASOUN D EA 15 MIN MRI 00969 NEURODIAG [place] SPINAL 5 NOSTICS [place]IRA CANAL INC CERVICAL W/O CONTRAST MATRL APPL [address] MODALITY 5 [facility] 1/> AREAS INC INC ULTRASOUN D EA 15 MIN APPL [address] MODALITY 5 [facility] 1/> AREAS INC INC ELEC STIMJ UNATTENDE D THERAPEUT [address] IC PX 1/> 5 [facility] AREAS INC INC EACH 15 MIN EXERCISES THERAPEUT [address] IC PX 1/> 5 [facility] AREAS INC INC EACH 15 MIN EXERCISES APPL [address] MODALITY 5 [facility] 1/> AREAS INC INC ELEC STIMJ UNATTENDE D APPLICATI [address] ON 5 [facility] MODALITY INC INC 1/> AREAS HOT/COLD PACKS APPL [address] MODALITY 5 [facility] 1/> AREAS INC INC ULTRASOUN D EA 15 MIN APPL [address] MODALITY 5 [facility] 1/> AREAS INC INC ULTRASOUN D EA 15 MIN MANUAL [address] THERAPY 5 [facility] TQS 1/> INC INC REGIONS EACH 15 MIN[address]ES [address]ERAPEUT [address] IC PX 1/> 5 [facility] AREAS INC INC EACH 15 MIN EXERCISES APPL [address] MODALITY 5 [facility] 1/> AREAS INC INC ELEC STIMJ UNATTENDE D THERAPEUT [address] IC PX 1/> 5 [facility] AREAS INC INC EACH 15 MIN EXERCISES MANUAL [address] THERAPY 5 [facility] TQS 1/> INC INC REGIONS EACH [address]ES APPL [address] MODALITY 5 [facility] 1/> AREAS INC INC ULTRASOUN D EA 15 MIN APPLICATI [address] ON 5 [facility] MODALITY INC INC 1/> AREAS HOT/COLD PACKS APPLICATI [address] ON 5 [facility] MODALITY INC INC 1/> AREAS HOT/COLD PACKS APPL [address] MODALITY 5 [facility] 1/> AREAS INC INC ULTRASOUN D EA 15 MIN [address]APEUT [address] IC PX 1/> 5 [facility] AREAS INC INC EACH 15 MIN EXERCISES APPL [address] MODALITY 5 [facility] 1/> AREAS INC INC ELEC STIMJ UNATTENDE D APPL [address] MODALITY 5 [facility] 1/> AREAS INC INC ELEC STIMJ UNATTENDE D PHYSICAL [address] THERAPY 5 [facility] EVALUATIO INC INC N THERAPEUT [address] IC PX 1/> 5 [facility] AREAS INC INC EACH 15 MIN EXERCISES CYSTOURET 96378 STEPHANIE BROWN HROSCOPY 5 [facility] CLINIC PSC PSC URNLS DIP 73214 STEPHANIE SILVA 5 BOZRAH JUS STICK/TAB CLINIC LET RGNT PSC AUTO [place] [address] STEPHANIE SILVA PROSTATE 5 RAMANA JUS SPECIFIC CLINIC ANTIGEN PSC TOTAL SMR PRIM 56097 RAMANA BOLES SRC 5 CLINIC CLINIC GRAM/GIEM LABORATO LABORATO SA STAIN BCT FUNGI/LEODAN L COLLECTIO 96012 STEPHANIE SILVA N VENOUS 5 RAMANA JUS BLOOD CLINIC VENIPUNCT PSC URE CYTP 67074 STEPHANIE ERNST FRANDY SLCTV 5 [facility] CELL CLINIC ENHANCEME PSC NT INTERPJ XCPT C/V CUL BACT 07463 RAMANA BOLES XCPT 5 CLINIC CLINIC URINE LABORATO LABORATO BLOOD/STO OL AEROBIC ISOL COLLECTIO 88377 COMBINED COMBINED N VENOUS 2 PHYSICIAN PHYSICIAN BLOOD S LA S LA VENIPUNCT URE PROTHROMB 49536 COMBINED COMBINED IN TIME 2 PHYSICIAN PHYSICIAN S LA S LA CONTINUOU E0601 ABDON COPPOLA S 2 HOME HOME POSITIVE MEDICAL MEDICAL AIRWAY EQUIPME EQUIPME PRESSURE DEVICE NONCOVERE A9270 [facility] D ITEM OR 2 [facility]ISM [facility] SERVICE [facility]OS[facility] HOSP COMPREHEN 46312 [facility] SIVE 2 MANDAEISM MANDAEISM METABOLIC HOSP HOSP PANEL PROTHROMB 89494 [facility] IN TIME 2 MAN[facility]EISM MANDAEISM HOSP HOSP BLOOD 54212 [facility] COUNT 2 MANDAEISM MANDAEISM COMPLETE HOSP HOSP AUTO&AUTO DIFRNTL WBC URNLS DIP 49779 [facility]ENTRAL 2 MANDAEISM MANDAEISM STICK/TAB HOSP HOSP LET REAGENT AUTO MICROSCOP Y COLLECTIO 33286 [facility] N VENOUS 2 MANDAEISM MANDAEISM [place] [address] [facility]EN[facility]AL CENTRAL ABDOMEN & 2 MANDAEISM MANDAEISM PELVIS HOSP HOSP W/O CONTRAST MATERIAL O2 CONC 1 E1390 ABDON COPPOLA DEL PORT 2 HOME HOME 85%/>02 MEDICAL MEDICAL CONC AT EQUIPME EQUIPME PRSC FLW RATE PRTBLE E0431 ABDON COPPOLA GASEOUS 2 HOME HOME O2 SYS MEDICAL MEDICAL RENT; EQUIPME EQUIPME FLWMTR HUMIDFR&M ASK HEMOGLOBI 28509 [facility] WEST MUR N 2 GLYCOSYLA CORTNEY A1C ADMN SET A7003 YOUR YOUR SM VOL 2 PHARMACY PHARMACY NONFILTR PNEUMAT NEBULIZR DISPBL URNLS DIP 43477 STEPHANIE RAMIREZ 2 RAMANA JR THO STICK/TAB [...] FLW RATE INJECTION J2405 [address] 2 [facility] ONDANSETR INC INC ON HCL [place] [address] [place] [address] CLOSTRIDI 2 [facility] UM INC INC DIFFICILE TOXIN 3D [address] RENDERING 2 [facility] INC INC W/INTERP& POSTPROC DIFF WORK STATION URNLS DIP [address] 2 [facility] STICK/TAB INC INC LET REAGENT AUTO MICROSCOP Y BLOOD [address] COUNT 2 [facility] COMPLETE INC INC AUTO&[place] [address] AMYLASE 2 [facility] INC INC COMPREHEN [address] SIVE 2 [facility] METABOLIC INC INC PANEL PROTHROMB [address] IN TIME 2 [facility] [place] [address] LIPASE 2 [facility] [place] [address] ABDOMEN & 2 [facility] PELVIS INC INC W/O CONTRAST MATERIAL CUL BACT [address] STOOL 2 [facility] AEROBIC INC INC ISOL SALMONELL A&SHIGELL THERAPEUT [address] IC 2 [facility] INJECTION INC INC IV PUSH EACH NEW DRUG THER [address] PROPH/DX 2 [facility] NJX IV INC INC PUSH SINGLE/1S T SBST/DRUG COLLECTIO 09263 COMBINED COMBINED N VENOUS 2 PHYSICIAN PHYSICIAN BLOOD S LA S LA VENIPUNCT URE POTASSIUM 85574 COMBINED COMBINED SERUM 2 PHYSICIAN PHYSICIAN PLASMA/WH S LA S LA OLE BLOOD PROTHROMB 62999 COMBINED COMBINED IN TIME 2 PHYSICIAN PHYSICIAN S LA S LA URNLS DIP 40759 [facility] 2 RAMANA JR THO STICK/TAB CLINIC LET RGNT PSC AUTO W/O MICROSCOP Y PROTHROMB 10753 COMBINED COMBINED IN TIME 2 [place] [address] INFUSION 2 [facility] THERAPY/P INC INC ROPHYLAXI S /DX 1ST TO [address] IC 2 [facility] INJECTION INC INC IV PUSH EACH NEW DRUG BASIC 84579 COMBINED COMBINED METABOLIC 2 PHYSICIAN PHYSICIAN PANEL S LA S LA CALCIUM TOTAL COLLECTIO 99608 COMBINED COMBINED N VENOUS 2 PHYSICIAN PHYSICIAN BLOOD S LA S LA VENIPUNCT URE COMPREHEN 49442 COMBINED COMBINED SIVE 2 PHYSICIAN PHYSICIAN METABOLIC S LA S LA PANEL BLOOD 23170 COMBINED COMBINED COUNT 2 PHYSICIAN PHYSICIAN COMPLETE S LA S LA AUTO&AUTO DIFRNTL WBC WND CARE A6550 [facility] SET NEG 2 THERAPEUT THERAPEUT PRSS WND IC SER IC SER TX ELEC INC INC PUMP SPL ADMN SET A7003 YOUR YOUR VOL 2 PHARMACY PHARMACY NONFILTR PNEUMAT NEBULIZR DISPBL CANISTER A7000 [facility] DISPOSABL 2 THERAPEUT THERAPEUT E USED IC SER IC SER WITH INC INC SUCTION PUMP EACH NEG PRESS E2402 [facility] WOUND 2 THERAPEUT THERAPEUT THERAPY IC SER IC SER ELEC PUMP INC INC STATION/P [facility] [address] [facility] 2 INPATIENT ALI DAY MEDICINE MANAGEMEN T > 30 MIN SBSQ 71765 [facility] 2 INPATIENT ALI CARE/DAY MEDICINE 25 MINUTES SBSQ 58855 [facility] 2 INPATIENT ALI CARE/DAY MEDICINE 35 MINUTES INITIAL 19094 [facility] 2 INPATIENT ALI CARE/DAY MEDICINE 70 MINUTES RADIOLOGI 05689 [facility] [place] 2 RADIOLOGY RAY [...] AT EQUIPME EQUIPME PRSC FLW RATE SBSQ 90058 NEPHROLOG [facility] 2 Y [facility] CARE/DAY ASSOCIATE 15 S MINUTES SBSQ [phone]/DAY EAST 25 PULMONARY MINUTES SBSQ 24853 [facility] 2 INPATIENT CARE/DAY MEDICINE 25 MINUTES SBSQ 44957 [facility] 2 [facility] CARE/DAY EAST 35 PULMONARY MINUTES SBSQ [id number] CARE/DAY EAST 35 PULMONARY MINUTES SBSQ 26223 [facility] 2 INPATIENT CARE/DAY MEDICINE 25 MINUTES SBSQ 46299 [facility] 2 INPATIENT CARE/DAY MEDICINE 25 MINUTES RADIOLOGI 42469 [facility] WHYTE C 2 RADIOLOGY LD IV A EXAMINATI ON CHEST SING[place] VIEW FRONTAL CRITICAL 11113 [facility] 2 SUZANNE GRA ILL/INJUR EAST ED PULMONARY PATIENT INIT 30-74 MIN RADIOLOGI 32623 [facility] WHYTE C 2 RADIOLOGY LD IV A EXAMINATI ON CHEST SING[place] VIEW FRONTAL SBSQ [phone] [facility] 2 INPATIENT CARE/DAY MEDICINE 25 MINUTES SBSQ 33117 [facility] 2 CORYDON GRA CARE/DAY EAST 35 PULMONARY MINUTES SBSQ 15404 [facility] 2 Y [place] CARE/DAY ASSOCIATE 35 S MINUTES SBSQ 37007 [facility] 2 INPATIENT CARE/DAY MEDICINE 25 MINUTES RADIOLOGI 96398 [facility] SANDOVAL C 2 RADIOLOGY III KEITH EXAMINATI ON CHEST SING[place] VIEW FRONTAL CRITICAL 09678 [facility] 2 SUZANNE ANA ILL/INJUR EAST ED PULMONARY PATIENT INIT 30-74 MIN ECG 89687 [facility] ROUTINE 2 [facility] ECG CLINIC W/LEAST PSC 12 LDS I&R ONLY CRITICAL 93617 [facility] 2 SUZANNE ANA ILL/INJUR EAST ED PULMONARY PATIENT INIT 30-74 MIN RADIOLOGI 71060 [facility] SANDOVAL C 2 RADIOLOGY III KEITH EXAMINATI ON CHEST SINGLE VIEW FRONTAL SBSQ 52536 [facility] 2 INPATIENT CARE/DAY MEDICINE 25 MINUTES SBSQ 17996 [facility] 2 INPATIENT ARU CARE/DAY MEDICINE 25 MINUTES RADIOLOGI 09916 [facility] HIGGINS C 2 RADIOLOGY STEPHANY EXAMINATI ON CHEST SINGLE VIEW FRONTAL CRITICAL 21043 [facility] 2 SUZANNE ILL/INJUR EAST ED PULMONARY PATIENT INIT 30-74 MIN SBSQ 16637 [facility] 2 Y [place] CARE/DAY ASSOCIATE 35 S MINUTES SBSQ [id number] [facility] 2 INPATIENT ARU CARE/DAY MEDICINE 35 MINUTES INITIAL 79100 NEPHROLOG [facility] 2 Y THO CARE/DAY ASSOCIATE 70 S MINUTES CRITICAL [address] [place] [phone] SUZANNE SAWYER ILL/INJUR [facility] ED PULMONARY PATIENT INIT 30-74 MIN INSERTION 9604 [facility] [address] [place] [address] ENDOTRACH EAL TUBE ARTERIAL 3891 [facility] CATHETERI [address] [place] [address] ZATION CENTRAL 3897 [facility] VENOUS [address] [place] [address] CATHETER PLACEMENT WITH GUIDANCE CONT [phone] MECH VENT 96 CONSECUTI VE HRS/MORE RADIOLOGI 26663 [facility] [place] 2 RADIOLOGY LD IV A EXAMINATI ON CHEST SINGLE VIEW FRONTAL DAILY 28866 [facility] 2 A MIH ASSOCIATE EDRL/[place] [address] [facility] [place] RETROPERI 2 RADIOLOGY RAY TONEAL REAL TIME W/IMAGE LIMITED INSJ 86647 [facility] NON-TUNNE 2 SUZANNE SAWYER LED [facility] CENTRAL PULMONARY VENOUS CATH AGE 4 YR/> ARTL 43512 [facility] CATHJ/CAN 2 [facility]SWIFT PULMONARY SFUSION SPX PRQ NJXS 11224 ANESTHESI VANCE INFUS/MAITE 2 A SCO US ASSOCIATE DX/SBST S PSC EDRL/SUBA PETER CRV/THRC ECG 21662 STEPHANIE SESAY FRANDY ROUTINE 2 [facility] ECG CLINIC W/LEAST PSC 12 LDS I&R ONLY NEPHRECTO 22092 STEPHANIE RAMIREZ MY 2 RAMANA [facility] THO PARTIAL CLINIC PSC ANES 83046 ANESTHESI ALEX XTRPRTL 2 A STA LOWER ABD ASSOCIATE UR TRACT S PSC RENAL DON NFRCT PARTIAL 554 [facility] NEPHRECTO [address] [place] [address] [place] [address] [place] SURG 2 [facility] PSC GROSS&MIGUEL ROSCOPIC EXAM INITIAL 05302 [facility] 2 INPATIENT ARU CARE/DAY MEDICINE 70 MINUTES RADIOLOGI 88299 [place] [facility] C EXAM 2 RADIOLOGY CHEST 2 VIEWS FRONTAL&L ATERAL ECG 74477 [facility] RAMOS ROUTINE 2 [facility] ECG CLINIC W/LEAST PSC 12 LDS I&R ONLY PRTBLE E0431 ABDON ABDON GASEOUS 2 HOME HOME O2 SYS MEDICAL MEDICAL RENT; EQUIPME EQUIPME FLWMTR HUMIDFR&M ASK O2 CONC 1 E1390 ABDON ABDON DEL PORT 2 HOME HOME 85%/>02 MEDICAL MEDICAL CONC AT EQUIPME EQUIPME PRSC FLW RATE PROTHROMB 14772 COMBINED COMBINED IN TIME 2 PHYSICIAN PHYSICIAN S LA S LA COLLECTIO 22247 COMBINED COMBINED N VENOUS 2 PHYSICIAN PHYSICIAN BLOOD S LA S LA VENIPUNCT URE URNLS DIP 61257 PODIATRIC [facility] 2 FOOT & JR THO STICK/TAB ANKLE LET RGNT SPECI AUTO W/O MICROSCOP Y HEMOGLOBI 41881 [facility] MUR N 2 GLYCOSYLA CORTNEY A1C PROTHROMB 87591 COMBINED COMBINED IN TIME 2 PHYSICIAN PHYSICIAN S LA S LA COLLECTIO 89132 COMBINED COMBINED N VENOUS 2 PHYSICIAN PHYSICIAN BLOOD S LA S LA VENIPUNCT URE COLLECTIO 24219 COMBINED COMBINED N VENOUS 2 PHYSICIAN PHYSICIAN BLOOD S LA S LA VENIPUNCT URE PROTHROMB 19199 COMBINED COMBINED IN TIME 2 PHYSICIAN PHYSICIAN S LA S LA URNLS DIP 93456 [facility] 2 BOZRAH THO STICK/TAB CLINIC LET PSC REAGENT AUTO MICROSCOP Y PROTHROMB 08370 COMBINED COMBINED IN TIME 2 PHYSICIAN PHYSICIAN S LA S LA COLLECTIO 15916 COMBINED COMBINED N VENOUS 2 PHYSICIAN PHYSICIAN BLOOD S LA S LA VENIPUNCT URE PROTHROMB 51791 COMBINED COMBINED IN TIME 2 PHYSICIAN PHYSICIAN S LA S LA COLLECTIO 42070 COMBINED COMBINED N VENOUS 2 PHYSICIAN PHYSICIAN BLOOD S LA S LA VENIPUNCT URE PROTHROMB 17716 COMBINED COMBINED IN TIME 2 PHYSICIAN PHYSICIAN S LA S LA COLLECTIO 68382 COMBINED COMBINED N VENOUS 2 PHYSICIAN PHYSICIAN BLOOD S LA S LA VENIPUNCT URE COLLECTIO 74118 COMBINED COMBINED N VENOUS 2 PHYSICIAN PHYSICIAN BLOOD S LA S LA VENIPUNCT URE PROTHROMB 73190 COMBINED COMBINED IN TIME 2 PHYSICIAN PHYSICIAN S LA S LA CLOTTING 93095 [facility] INHIBITOR 2 AMERIC AMERIC S PROTEIN [employer] HOLDINGS C ACTIVITY CLOTTING 19774 [facility] INHIBITOR 2 AMERIC AMERIC S [employer] HOLDINGS S FREE URNLS DIP [address]/[facility] LET REAGENT AUTO MICROSCOP Y CYSTOURET 16459 PODIATRIC [facility] HROSCOPY 2 FOOT & THO ANKLE SPECI COLLECTIO 10992 COMBINED COMBINED N VENOUS 2 PHYSICIAN PHYSICIAN BLOOD S LA S LA VENIPUNCT URE PROTHROMB 79629 COMBINED COMBINED IN TIME 2 PHYSICIAN PHYSICIAN S LA S LA CT THORAX 08672 [facility] [place] 2 RADIOLOGY RHO W/[place] [address] [place] [place] ABDOMEN & 2 RADIOLOGY RHO PELVIS W/O CONTRST 1/> BODY RE COLLECTIO 90424 COMBINED COMBINED N VENOUS 2 PHYSICIAN PHYSICIAN BLOOD S LA S LA VENIPUNCT URE PROTHROMB 11608 COMBINED COMBINED IN TIME 2 PHYSICIAN PHYSICIAN S LA S LA ECHO 13225 CENTRAL CENTRAL TTHRC R-T 2 MAN[facility]EISM MAN[facility]EISM 2D HOSP HOSP W/WOM-MOD E COMPL SPEC&COLR D O2 CONC 1 E1390 ABDON COPPOLA DEL PORT 2 HOME HOME 85%/>02 MEDICAL MEDICAL CONC AT EQUIPME EQUIPME PRSC FLW RATE PRTBLE E0431 ABDON COPPOLA GASEOUS 2 HOME HOME O2 SYS MEDICAL MEDICAL RENT; EQUIPME EQUIPME FLWMTR HUMIDFR&M ASK COLLECTIO 18383 COMBINED COMBINED N VENOUS 2 PHYSICIAN PHYSICIAN BLOOD S LA S LA VENIPUNCT URE PROTHROMB 59855 COMBINED COMBINED IN TIME 2 [place] [address] COMBINED COMBINED THYROID 2 PHYSICIAN PHYSICIAN STIMULATI [place] [address] COMBINED COMBINED FREE 2 PHYSICIAN PHYSICIAN THYROXINE S LA S LA COMPREHEN 72395 COMBINED COMBINED SIVE 2 PHYSICIAN PHYSICIAN METABOLIC S LA S LA PANEL HEMOGLOBI 48448 COMBINED COMBINED N 2 PHYSICIAN PHYSICIAN GLYCOSYLA S LA S LA CORTNEY A1C BLOOD 16523 COMBINED COMBINED COUNT 2 PHYSICIAN PHYSICIAN COMPLETE S LA S LA AUTO&AUTO DIFRNTL WBC BLOOD 48964 [facility] COUNT 2 [facility] COMPLETE HOSP HOSP AUTO&AUTO DIFRNTL WBC NATRIURET 78767 [facility] IC 2 [facility] PEPTIDE HOSP HOSP COMPREHEN 97659 [facility] SIVE 2 [facility]ISM [facility] METABOLIC HOSP HOSP PANEL PROTHROMB 37065 CEN[facility]AL C[facility]TRAL IN TIME 2 MANDAEISM MANDAEISM HOSP HOSP THER 64217 CENTRAL CENTRAL PROPH/DX 2 MAN[facility]EISM MANDAEISM NJX IV HOSP HOSP PUSH SINGLE/1S T SBST/DRUG RADIOLOGI 07666 CENTRAL FRY C EXAM 2 RADIOLOGY JAMES CHEST 2 ASSOC VIEWS FRONTAL&L ATERAL NONCOVERE A9270 [facility]AL [facility] D ITEM OR 2 [facility]ICE [facility] HOSP COLLECTIO 50394 COMBINED COMBINED N VENOUS 2 PHYSICIAN PHYSICIAN BLOOD S LA S LA VENIPUNCT URE PROTHROMB 95430 COMBINED COMBINED IN TIME 2 PHYSICIAN PHYSICIAN S LA S LA PROTHROMB 47030 [place] OZIEL[place] IN TIME 2 [facility] BLOOD 29434 [place] COUNT 2 [facility] AUTO&AUTO DIFRNTL WBC URNLS DIP 37601 [place] 2 [facility]/TAB [facility] LET REAGENT AUTO MICROSCOP Y COLLECTIO 53216 [place] BOSOLITARIOON N VENOUS 2 [facility] VENIPUNCT URE THER 87644 [place]ASH[place] PROPH/DX 2 [facility] PUSH SINGLE/1S T SBST/DRUG BASIC 28635 [place] METABOLIC 2 [facility] [address] [facility] ABDOMEN & 2 [facility] W/CONTRAS T MATERIAL COLLECTIO 22979 COMBINED COMBINED N VENOUS 2 PHYSICIAN PHYSICIAN BLOOD S LA S LA VENIPUNCT URE PROTHROMB 31189 COMBINED COMBINED IN TIME 2 PHYSICIAN PHYSICIAN S LA [facility] 19749 [facility] 2 MEDICINE DEN DAY SERV MANAGEMEN @CTRL BAP T > 30 MIN SBSQ 98762 [place] [address] MEDICINE DEN CARE/DAY SERVICES 25 MINUTES SBSQ 28254 [place] [address] MEDICINE DEN CARE/DAY SERVICES 25 MINUTES SBSQ 06936 [place] [address] MEDICINE DEN CARE/DAY SERVICES 35 MINUTES SBSQ 10037 [place] [address] MEDICINE DEN CARE/DAY SERVICES 35 MINUTES SBSQ 19912 [place] [address] MEDICINE CARE/DAY SERV 35 @CTRL BAP MINUTES SBSQ 23373 [place] [address] ONCOLOGY CARE/DAY ASSOCIATE 15 S MINUTES INITIAL [address] CARE/DAY CLINIC 50 PSC MINUTES VENOGRAPH 92940 [facility] SCHWARCZ Y CAVAL 2 SURGICAL THO INFERIOR ASSOCIATE SERIALOGR S APHY RS&I INITIAL [address] CARE/DAY ONCOLOGY 70 A MINUTES DUP-SCAN 35666 BOZRAH KELLY XTR VEINS 2 ANT COMPLETE CARDIOLOG Y AT CENT BILATERAL STUDY INTRO 08199 SCHWARCZ SCHWARCZ CATHETER 2 THO THO SUPERIOR/ [place] [address] SCHWARCZ SCHWARCZ INTRVAS 2 THO THO VC FILTR W/WO VAS ACS VSL SELXN RS&I INTERRUPT 387 CENTRAL CENTRAL ION OF 2 MANDAEISM [facility] CAVA ANGIOCARD 8851 CENTRAL CENTRAL IOGRAPHY 2 MANDAEISM [facility] [address] CENTRAL GARZA ADA ABDOMEN & 2 RADIOLOGY PELVIS ASSOC W/O CONTRAST MATERIAL ECHO 81871 [facility] TTHRC R-T 2 IV HEN 2D CARDIOLOG W/WOM-MOD Y AT CENT E COMPL SPEC&COLR D THERAPEUT 36121 YNES QUICK IC 2 [facility] INJECTION [facility] IV PUSH EACH NEW DRUG CULTURE 77177 YNES QUICK BACTERIAL 2 [facility] AEROBIC W/ID ISOLATES THER 16741 YNES QUICK PROPH/DX 2 [facility] NJX IV HOSPITAL HOSPITAL PUSH SINGLE/1S T SBST/DRUG THERAPEUT 84809 YNES QUICK IC 2 [facility] TIC/DX INJECTION SUBQ/IM ECG 96240 YNES QUICK ROUTINE 2 [facility] HOSPITAL W/LEAST 12 LDS TRCG ONLY W/O I&R COLLECTIO 61734 YNES QUICK N VENOUS 2 [facility] VENIPUNCT URE PROTHROMB 32215 YNES QUICK IN TIME [address] [place] [address] FIBRIN 85448 YNES QUICK DGRADJ 2 [facility] D-DIMER QUANTITAT JOANIE COMPREHEN 27679 YNES QUICK SIVE 2 [facility] PANEL ECG 06069 ROBBY BUSTAMANTE ROUTINE 2 EMERGENCY EMERGENCY ECG SERVICES SERVICES W/LEAST 12 LDS I&R ONLY BLOOD [address] COUNT [address] [facility] AUTO&AUTO DIFRNTL WBC RADIOLOGI 32858 ROBBY BUSTAMANTE C 2 EMERGENCY EMERGENCY EXAMINATI SERVICES SERVICES ON CHEST SINGLE VIEW FRONTAL CT THORAX 78711 YNES QUICK 2 [facility] W/[facility] T MATERIAL THROMBOPL 27122 YNES QUICK ASTIN 2 [facility] PARTIAL PLASMA/WH OLE BLOOD RADIOLOGI 89568 [facility] [place] SCALF MOUSTAPHA C EXAM 2 RADIOLOGY CHEST 2 VIEWS FRONTAL&L ATERAL PRTBLE E0431 ABDON ABDON GASEOUS 2 HOME HOME O2 SYS MEDICAL MEDICAL RENT; EQUIPME EQUIPME FLWMTR HUMIDFR&M ASK O2 CONC 1 E1390 ABDON COPPOLA DEL PORT 2 HOME HOME 85%/>02 MEDICAL MEDICAL CONC AT EQUIPME EQUIPME [facility] FLW RATE RADIOLOGI [address] C EXAM 2 [facility]OS[facility] CHEST 2 INC INC VIEWS FRONTAL&L ATERAL BASIC 75487 [facility] METABOLIC 2 AMERIC 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 CYTP 83557 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 2 Y MONICA OF Y MONICA OF CELL LINDA LINDA ENHANCEME H H NT INTERPJ XCPT C/V CUL BACT [address] XCPT 2 [facility] URINE INC INC BLOOD/STO OL AEROBIC ISOL BLOOD [address] COUNT 2 MEM [facility]OS[facility] COMPLETE INC INC AUTO&AUTO DIFRNTL WBC URNLS DIP [address] THO STICK/TAB CLINIC LET PSC [place] [address] [facility] PROSTATE 2 AMERIC AMERIC 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 TOTAL PROTHROMB 94569 [facility] IN TIME 2 AMERIC AMERIC 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 SMR PRIM [address] SRC 2 MEM [facility] GRAM/GIEM INC INC SA STAIN BCT FUNGI/LEODAN L CULTURE [address] BACTERIAL 2 [facility] BLOOD INC [place]OB[place] W/[place] [address] INFUSION 2 [facility] THERAPY/P INC INC ROPHYLAXI S /DX 1ST TO [address] IC 2 [facility] INJECTION INC INC IV PUSH EACH NEW DRUG PRESSURIZ [address] ED/NONPRE 2 MEM [facility]OS[facility] SSURIZED INC INC INHALATIO N TREATMENT PRTBLE E0431 ABDON COPPOLA GASEOUS 2 HOME HOME O2 SYS MEDICAL MEDICAL RENT; EQUIPME EQUIPME FLWMTR HUMIDFR&M ASK O2 CONC 1 E1390 ABDON ABDON DEL PORT 2 HOME HOME 85%/>02 MEDICAL MEDICAL CONC AT EQUIPME EQUIPME PRS FLW RATE MRI BRAIN 36928 NEURODIAG TALANOW BRAIN 2 NOSTICPSC ROL STEM W/[place] [address] HEAD/BRAI 2 [facility] HOSP N W/O INC INC CONTRAST MATERIAL CT ORBIT 59458 NIKA KENNEYUTCHER SELLA/POS 2 MEDICAL STEFF T IMAGING FOSSA/EAR ASS W/O CONTRAST MATRL THERAPEUT [address] IC 2 [facility] HOSP PROPHYLAC INC INC TIC/DX INJECTION SUBQ/IM 3D [address] RENDERING 2 [facility] HOSP W/INTERP INC INC & POSTPROCE SS SUPERVISI ON COLLECTIO 55849 [place] N VENOUS 2 [facility] VENIPCONE HEALTH URE PROTHROMB 53175 [place] IN TIME 2 [facility] PROTOMB 30878 [place] IN TIME 2 [facility] COLLECTIO 73157 [place] N VENOUS 2 [facility] URE RADIOLOGI 71227 [place] C EXAM [address] VIEWS FRONTAL&L ATERAL DUP-SCAN 58319 [facility] XTR VEINS 2 SUZANNE III J COMPLETE CARDIOLOG Y CLINIC BILATERAL STUDY O2 CONC 1 E1390 ABDON COPPOLA DEL PORT 2 HOME HOME 85%/>02 MEDICAL MEDICAL CONC AT EQUIPME EQUIPME PRSC FLW RATE PRTBLE E0431 ABDON COPPOLA GASEOUS 2 HOME HOME O2 SYS MEDICAL MEDICAL RENT; EQUIPME EQUIPME FLWMTR [facility] [address] [facility] 2 EMERGENCY DENISE DAY SERVICES MANAGEMEN T > 30 MIN SBSQ 28006 [facility] 2 EMERGENCY DENISE CARE/DAY SERVICES 25 MINUTES SBSQ 85509 [facility] 2 EMERGENCY DENISE CARE/DAY SERVICES 25 MINUTES SBSQ 90186 [facility] 2 EMERGENCY DENISE CARE/DAY SERVICES 25 MINUTES DUP-SCAN 21132 PEPE NEVAREZ NEVAREZ PEPE XTR VEINS 2 MD COMPLETE CONSULTIN G SERV BILATERAL STUDY INITIAL 62407 [facility] 2 EMERGENCY DENISE CARE/DAY SERVICES 70 MINUTES ECHO 98964 PEPE NEVAREZ NEVAREZ PEPE TTHRC R-T 2 2D CONSULTIN W/WOM-MOD G SERV E COMPL SPEC&COLR D ECG 22939 ROBBY LINDER ISIDORO ROUTINE 2 EMERGENCY ECG SERVICES W/LEAST 12 LDS I&R ONLY RADIOLOGI 08279 [facility] [place] MAT C 2 RADIOLOGY EXAMINATI ON CHEST SINGLE VIEW FRONTAL CT THORAX 66892 [facility] [place] IRVIN 2 RADIOLOGY RAY W/CONTRAS T MATERIAL CRITICAL 51461 [place] L[facility]ER ISIDORO CARE 2 EMERGENCY ILL/INJUR SERVICES ED PATIENT INIT 30-74 MIN CULTURE 02660 CENTRAL CENTRAL BACTERIAL 2 [facility] HOSP [place]ANTTAT[place] [address] CENTRAL CENTRAL BLOOD/URI 2 [facility]EISM MANDAEISM C ACID HOSP HOSP BLOOD 79326 CEN[facility]AL CENTRAL COUNT 2 [facility]ISM MANDAEISM COMPLETE HOSP HOSP AUTO&AUTO DIFRNTL WBC COMPREHEN 88651 CEN[facility]AL CENTRAL SIVE 2 MAN[facility]ISM [facility]ISM METABOLIC HOSP HOSP PANEL URNLS DIP 11738 CENTRAL CENTRAL 2 MANDAEISM MANDAEISM STICK/TAB HOSP HOSP LET REAGENT AUTO MICROSCOP Y HEMOGLOBI 02089 [facility] MUR N 2 GLYCOSYLA CORTNEY A1C URNLS DIP 63336 [facility] MUR 2 STICK/TAB LET RGNT NON-AUTO W/O MICRSCP IAADIADOO 38739 [facility] MUR 2 STREPTOCO CCUS GROUP A CULTURE [address] BACTERIAL 2 [facility] BLOOD INC INC AEROBIC W/ID ISOLATES PRESSURIZ [address] ED/NONPRE 2 MEM [facility] MEM HOS[facility] [place]URIZED [place] [address] INFUSION 2 MEM [facility] THERAPY/P INC INC ROPHYLAXI S /DX 1ST TO [address] IC 2 [facility] INJECTION INC INC IV PUSH EACH NEW DRUG ECG [address] ROUTINE 2 [facility] ECG INC INC W/LEAST 12 LDS TRCG ONLY W/O I&R IAADI [address] INFLUENZA 2 [facility] B VIRUS INC INC IAADI [address] INFFLUENZ 2 [facility] A A VIRUS INC INC COMPREHEN [address] SIVE 2 [facility]OS[facility] METABOLIC INC INC PANEL CREATINE [address] KINASE MB 2 MEM H[facility]OS[facility] FRACTION INC INC ONLY CREATINE [address] KINASE 2 [facility]OS[facility] TOTAL INC INC NATRIURET [address] IC 2 MEM [facility]OS[facility] PEPTIDE INC INC BLOOD [address] COUNT 2 [facility]OS[facility] COMPLETE INC INC AUTO&AUTO DIFRNTL WBC BLOOD [address] GASES ANY 2 MEM [facility]OS[facility]OS[facility] INC INC COMBINATI ON PH PCO2 PO2 CO2 HCO3 ECG [address]OUT[address] [facility] W/LEAST P P 12 LDS I&[place] [address] TROPONIN 2 MEM [facility] QUANTITAT INC INC JOANIE RADIOLOGI [address] C 2 [facility] EXAMINATI INC [place] [address] [facility] [place] MAT HEAD/BRAI 1 RADIOLOGY N W/O CONTRAST MATERIAL URNLS DIP [address] 1 [facility] STICK/TAB INC INC LET REAGENT AUTO MICROSCOP Y INSJ TEMP [address] NDWELLG 1 [facility] BLADDER INC INC CATHETER SIMPLE BLOOD [address] COUNT 1 [facility] COMPLETE INC INC AUTO&AUTO DIFRNTL WBC COMPREHEN [address] SIVE 1 [facility]OS[facility] METABOLIC INC INC PANEL SPMTRY 74363 [facility] MUR W/VC 1 EXPIRATOR Y HANSEL W/WO MXML VOL VNTJ FLUOROSCO 70304 [facility]ANCED PIC 1 PAIN PAIN GUIDANCE MEDICIINE MEDICIINE NEEDLE PSC PSC PLACEMENT ADD ON MULTIPLE 07854 ADVANCED ADVANCED NERVE 1 PAIN PAIN BLOCK MEDICIINE MEDICIINE INJECTION PSC PSC S RIB NERVES BLOOD 94174 [facility] COUNT 1 [facility] MCRSCP W/MNL DIFRNTL WBC COUNT RADIOLOGI 81665 [place] C EXAM 1 RADIOLOGY RHO CHEST 2 VIEWS FRONTAL&L ATERAL RADEX 93430 [place] SPINE 1 RADIOLOGY RHO THORACIC 2 VIEWS COLLECTIO 56724 [facility] N VENOUS 1 [facility] [place] [address] [facility] FREE 1 [facility] [place] [address] [facility] THYROID 1 [facility] TSH COMPREHEN 15972 [facility] SIVE 1 [facility] PANEL HEMOGLOBI 80422 [facility] N 1 [facility] CORTNEY A1C BLOOD 68884 [facility] COUNT [address] [facility] AUTOMATED LIPID 19922 [facility] PANEL 1 [facility] URNLS DIP [address] STICK/TAB HOSPITAL HOSPITAL LET REAGENT AUTO MICROSCOP Y INJECTION J3301 [facility] 1 PAIN [place] TRIAMCINO MEDICIINE LONE PSC ACETONIDE NOS 10 MG INJECTION 96617 ADV[facility] 1 PAIN [place] ANESTHETI MEDICIINE C AGENT PSC [facility] [place] [address]294 [facility] [place] DX/THER 1 PAIN [place] AGT PVRT MEDICIINE FACET JT PSC CRV/THRC 1 LEVEL INJECTION J3301 [facility] [place] 1 PAIN [place] TRIAMCINO MEDICIINE LONE PSC ACETONIDE NOS 10 MG NJX 25642 [facility] [place] DX/THER 1 [place] [place] AGT PVRT MEDICIINE FACET JT PSC CRV/THRC 3+ LEVEL MODERATE 06880 [facility] [place] SEDATJ 1 [facility] [place] SAME MEDICIINE PHYS/QHP PSC 5/>YRS INIT 30 MIN LOCM Q9965 [facility] [place] 100-199 1 [place]IN [place] MG/ML MEDICIINE IODINE PSC CONCENTRA TION PER ML NJX 99465 [facility] [place] DX/THER 1 PAIN [place] AGT PVRT MEDICIINE FACET JT PSC CRV/THRC 2ND LEVEL ADMINISTR G0008 [facility] ATION OF 1 INFLUENZA VIRUS VACCINE INFLUENZA Q2038 [facility] VACC 1 SPLIT VIRUS 3 YRS & > IM FLUZONE OPHTH 58633 [facility] 1 VISION XM&EVAL COMPRE NEW PT 1/> VST FLUOR 04549 [facility] [place] NEEDLE/CA 1 PAIN [place] TH MEDICIINE SPINE/PAR PSC ASPINAL DX/[place]X 19047 [facility] [place] DX/THER 1 PAIN [place] SBST MEDICIINE EPIDURAL/ PSC SUBRACH CERV/THOR ACIC MODERATE 27498 [facility] [place] SEDATJ 1 PAIN [place] SAME MEDICIINE PHYS/QHP PSC 5/>YRS INIT 30 MIN INJECTION J3301 [facility] [place] 1 PAIN [place] TRIAMCINO MEDICIINE LONE PSC ACETONIDE NOS 10 MG HEMOGLOBI 79686 [facility] N 1 GLYCOSYLA CORTNEY A1C NJX 91268 [facility] [place] DX/THER 1 [place] AGT PVRT MEDICIINE FACET JT PSC CRV/THRC 2ND LEVEL LOCM Q9965 [facility] [place] 100-199 1 PAIN [place] MG/ML MEDICIINE IODINE PSC CONCENTRA TION PER ML INJECTION J3301 [facility] [place] 1 PAIN [place] TRIAMCINO MEDICIINE LONE PSC ACETONIDE NOS 10 MG NJX 89081 [facility] [place] DX/THER 1 [place] AGT PVRT MEDICIINE FACET JT PSC CRV/THRC 1 LEVEL MODERATE 06954 [facility] [place] SEDATJ 1 PAIN [place] SAME MEDICIINE PHYS/QHP PSC 5/>YRS INIT 30 MIN NJX 54646 ROSHNI [place] DX/THER 1 PAIN [place] AGT PVRT MEDICIINE FACET JT PSC CRV/THRC 3+ LEVEL INJECTION J1030 [facility] 1 METHYLPRE DNISOLONE ACETATE 40 MG INJECTION J1100 [facility] 1 DEXAMETHO SONE SODIUM PHOSPHATE 1 MG MRI 27008 NEURODIAG [place] SPINAL 1 NOSTICPSC ROL CANAL THORACIC W/O CONTRAST MATRL MRI 91464 NEURODIAG [place] SPINAL 1 NOSTICPSC ROL CANAL LUMBAR W/O CONTRAST MATERIAL MRI 50753 NEURODIAG [place] ABDOMEN 1 NOSTICPSC ROL W/O & W/CONTRAS T MATERIAL MRI [address] SPINAL 1 [facility] CANAL INC INC CERVICAL W/O CONTRAST MATRL 3D [address] RENDERING 1 [facility] W/INTERP INC INC & POSTPROCE SS SUPERVISI ON PROSTATE G0103 [facility] CANCER 1 AMERIC AMERIC SCREENING 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 ; PSA TEST CT THORAX 22942 [facility] RHETT SANDOVAL W/O [address] [place] [address] [facility] RHETT SANDOVAL ABDOMEN 1 RADIOLOGY KEITH W/O CONTRAST MATERIAL RADIOLOGI 86316 [facility] [place] SEAN Shah C EXAM 1 RADIOLOGY CHEST 2 VIEWS FRONTAL&L ATERAL HEMOGLOBI 67358 [facility] N 1 GLYCOSYLA CORTNEY A1C NATRIURET 37431 YNES QUICK IC 1 [facility] BLOOD [address] QUICK COUNT [address] [facility] AUTO&[place] [address] YNES QUICK TROPONIN 1 [facility] JOANIE COMPREHEN 33328 YNES QUICK SIVE 1 [facility] PANEL PROTHROMB 55758 YNES QUICK IN TIME 1 [facility] FIBRIN 45266 [facility] DGRADJ 1 [facility] D-DIMER QUAL/SEMI FLACO ECG 25962 [facility] ROUTINE 1 [facility] W/LEAST 12 LDS TRCG ONLY W/O I&R THER 47622 [facility] PROPH/DX 1 [facility] NJX IV [facility] PUSH SINGLE/1S T SBST/DRUG COLLECTIO 30803 [facility] N VENOUS 1 [facility] VENIPUNCT URE RADIOLOGI 65128 [facility] [place] CAR[place] MAT C EXAM 1 RADIOLOGY CHEST 2 VIEWS FRONTAL&L ATERAL THROMBOPL 54367 [facility] ASTIN 1 [facility] PARTIAL PLASMA/WH OLE BLOOD Encounters Encounter Start End Date Code Location Performer Type Date [facility]ICE [facility]32 [facility]YS[facility] T VISIT PRACTICE 25 L MINUTES EMERGENCY 29668 ADRIANE BURKS 7 7 PHYSICIAN U DEPARTMEN S, PLLC T VISIT HIGH/URGE NT SEVERITY [facility] 7 [facility] OFFICE [address] [facility] 7 7 [place] [facility] 25 PSC MINUTES OFFICE 86409 [facility] 7 7 PHYSICIAN T VISIT PRACTICE 15 L MINUTES OFFICE 36086 [facility] 7 7 PHYSICIAN T VISIT PRACTICE 15 L MINUTES EMERGENCY 21252 [facility] DEPT 7 7 JEROD VISIT EMERGENCY HIGH PHYS SEVERITY& THREAT FUNCJ OFFICE [address] [facility] 7 7 [place] [facility] 40 PSC MINUTES [facility] 7 7 [facility] T OFFICE 11667 YNES TATE OUTPATIEN 7 7 PHYSICIAN T VISIT PRACTICE 15 L MINUTES OFFICE 80083 NEPHROLOG SAUNDERS OUTPATIEN 7 7 Y T VISIT ASSOCIATE 25 S OF CIELO MINUTES EMERGENCY 69882 ADRIANE GOLDSMITH 7 7 PHYSICIAN DEPARTMEN S, PLLC T VISIT HIGH/URGE NT SEVERITY [facility]OSP[facility] - 7 7 [facility] T OFFICE 64141 YNES TATE OUTPATIEN 7 7 PHYSICIAN T VISIT PRACTICE 15 L MINUTES OFFICE 90427 YNES TATE [facility] 7 7 PHYSICIAN T VISIT PRACTICE 15 L MINUTES OFFICE 13090 [facility] 7 7 [place] [facility] 15 PSC MINUTES [facility] - 7 7 [facility] OUTPATIEN INC T EMERGENCY 96589 [facility] 7 7 [facility] DEPARTMEN INC T VISIT MODERATE SEVERITY [facility]OSP[facility] - 6 6 [facility] T EMERGENCY 53080 [facility] 6 6 [facility] STRIDE DEPARTMEN INC PROGRAM T VISIT HIGH/URGE NT SEVERITY [facility]OSPITAL [facility] - 6 6 [facility] OUTPATIEN INC T OFFICE [address] [facility] 6 6 [place] JUS T VISIT CLINIC 15 PSC MINUTES OFFICE 31245 NEPHROLOG SAUNDERS OUTPATIEN 6 6 Y [place] T VISIT ASSOCIATE 40 S OF CIELO MINUTES HOSPITAL [facility] - 6 6 N OUTPATIEN COMMUNTIY T [facility] - 6 6 [facility] T OFFICE 50395 DAPHNE DAPHNE OUTPATIEN 6 6 ANA ANA T NEW 45 MINUTES OFFICE 11016 [place] V[facility] OUTPATIEN 6 6 [facility] T VISIT MEDICAL 15 G MINUTES OFFICE 86892 YENY AJI VIOLET OUTPATIEN 6 6 [facility] T NEW 45 MEDICAL MINUTES G [facility] - 6 6 [facility] T OFFICE 86718 PEPE NEVAREZ NEVAREZ PEPE OUTPATIEN 5 5 T VISIT CONSULTIN 40 G SRV MINUTES HOSPITAL [facility] - 5 5 [facility] OUTPATI[facility] INC T EMERGENCY 09701 [facility] 5 5 [facility] DEPARTMEN INC T VISIT MODERATE SEVERITY OFFICE 21289 STEPHANIE SILVA OUTPATIEN 5 5 [facility] JUS T VISIT CLINIC 15 PSC [facility] OFFICE 65609 VIJAY GARLAND BUX ANJ OUTPATIEN 5 5 T NEW 30 MINUTES [facility] 5 5 Y INPATIENT HOSPITAL OFFICE 78123 STEPHANIE ISLVA OUTPATIEN 5 5 BOZRAH JUS T VISIT CLINIC 15 PSC MINUTES OFFICE 60712 [facility] OUTPATIEN 2 2 T VISIT 25 MINUTES EMERGENCY 15833 [facility] 2 2 [facility] DEPARTMEN HOSP T VISIT HIGH/URGE NT SEVERITY HOSPITAL [facility] - 2 2 [facility] OUTPATIEN HOSP T OFFICE 86324 [facility] OUTPATIEN 2 2 T VISIT 25 MINUTES [facility] 2 [facility] T EMERGENCY 34958 [facility] 2 2 [facility] DEPARTMEN INC T VISIT HIGH/URGE NT SEVERITY EMERGENCY 99602 [facility] ZIEGLER DEPT 2 2 EMERGENCY III [facility] HIGH SEVERITY& THREAT FUNCJ OFFICE 94919 [facility] 2 2 T VISIT 25 MINUTES [facility] 2 [facility] T EMERGENCY 11174 [facility] 2 2 [facility] DEPARTMEN INC T VISIT HIGH/URGE NT SEVERITY OFFICE 75564 [facility] OUTPATIEN 2 2 T VISIT [address] [facility] DEPT 2 2 JEROD VISIT EMERGENCY HIGH PHYS SEVERITY& THREAT FUNJ OFFICE 76821 [facility] ELODIA MAYORGA OUTPATIEN 2 2 T VISIT [address] INPATIENT OFFICE 41601 SCHWARCZ SCHWTINOZ OUTPATIEN 2 2 THO THO T VISIT 25 MINUTES OFFICE 55388 PODIATRIC LILLIANAUJANAK OUTPATIEN 2 2 FOOT & JR THO T VISIT ANKLE 10 SPECI MINUTES OFFICE 76910 [facility] [place] [place] OUTPATIEN 2 2 T VISIT 15 MINUTES OFFICE 25302 [facility] OUTPATIEN 2 2 BOZRAH THO T VISIT CLINIC 25 PSC MINUTES [facility] [place] [facility] 2 2 [facility] T OFFICE 02131 [facility] ELODIA [place]GA OUTPATIEN 2 2 T VISIT 25 MINUTES OFFICE 47411 [facility] BEENA VANEGAS OUTPATIEN 2 2 ONCOLOGY T VISIT ASSOCIATE 15 S MINUTES [facility]OSP[facility] - 2 2 [facility] OUTPATIEN H[facility]P T [facility]OSP[facility] - 2 2 [facility] OUTPATIEN HOSP T EMERGENCY 16278 [facility] 2 2 [facility] HOSP T VISIT HIGH/URGE NT SEVERITY OFFICE 33296 [facility] OUTPATIEN 2 2 T VISIT 25 MINUTES [facility]GENCY 32138 [facility] T VISIT HIGH/URGE NT SEVERITY EMERGENCY 15670 PING KOEHLER DEPT 2 2 MEDICAL PAT VISIT GROUP, HIGH PLLC SEVERITY& THREAT FUNJ [facility] [place] - 2 2 [facility] [place] [facility] 2 [facility] HIGH SEVERITY& THREAT FUNCJ EMERGENCY 88376 ROBBY ALVARADO DEPT 2 2 EMERGENCY [facility] HIGH SEVERITY& THREAT FUNCJ OFFICE 95659 [facility] OUTPATI[facility] 2 2 [facility] T VISIT CLINIC 40 PSC MINUTES [facility] 2 2 [facility] T EMERGENCY 17818 [facility] 2 2 [facility] INC T VISIT HIGH/URGE NT SEVERITY OFFICE 50900 [facility] OUTPATIEN 2 2 T VISIT 15 MINUTES OFFICE 20374 [facility] OUTPATIEN 2 2 T VISIT 15 MINUTES EMERGENCY 83396 ROBBY ALVARADO 2 2 EMERGENCY [facility] EMERGENCY DEPARTMENT SERVICES T VISIT HIGH/URGE NT SEVERITY [facility] [place] - 2 2 [facility] INC T EMERGENCY 37774 [facility] 2 2 [facility] T VISIT LOW/MODER SEVERITY OFFICE 41435 YEYO KENNEY OUTPATIEN 2 2 MD RG VIOLET T NEW 60 PSC MINUTES OFFICE 59784 [facility] OUT[facility] 2 2 T VISIT 15 MINUTES EMERGENCY 80222 ROB[facility] BOLTON DEPT 2 2 EMERGENCY VISIT SERVICES HIGH SEVERITY& THREAT FUN [facility] [place] - 2 2 [facility] INC T EMERGENCY 93437 [facility] 2 2 [facility] DEPARTMEN INC T VISIT MODERATE SEVERITY [facility] [place] - 2 2 [facility] T OFFICE 05045 [facility] OUTPATIEN 2 2 T VISIT 25 MINUTES [facility] [place] - 2 2 [facility] T OFFICE 02035 [facility] 2 2 T VISIT 15 MINUTES [facility] [place] [facility] 2 2 [facility] T OFFICE 76342 [facility] 2 2 T VISIT 25 MINUTES [facility] [place] - 2 2 [facility] INPATIENT HOSPITAL OFFICE 67075 [facility] OUTPATIEN 2 2 T VISIT 15 MINUTES EMERGENCY 52365 [facility] 2 2 [facility] DEPARTMEN HOSP T VISIT LOW/MODER SEVERITY [facility] - 2 2 [facility] OUTPATIEN HOSP T OFFICE 94803 [facility] 2 2 T VISIT 25 MINUTES EMERGENCY 32154 ROB[facility] BOLTON 2 2 EMERGENCY DEPARTMEN SERVICES T VISIT HIGH/URGE NT SEVERITY EMERGENCY 32082 ROBBY RUTH DEPT 2 2 EMERGENCY MIGUEL VISIT SERVICES HIGH SEVERITY& THREAT FUNCJ EMERGENCY 96978 [facility] 2 2 [facility] DEPARTMEN INC T VISIT HIGH/URGE NT SEVERITY [facility] 2 2 [facility] OUT[facility] T OFFICE 20577 [facility] OUT[facility] 2 2 T VISIT 15 MINUTES [facility] [place] - 1 1 [facility] T EMERGENCY 53199 SOERIKN BAB SOERIKN BAB 1 1 DEPARTMEN T VISIT HIGH/URGE NT SEVERITY [facility] 1 [facility] T EMERGENCY 21065 [facility] 1 1 [facility] DEPARTMEN INC T VISIT MODERATE SEVERITY OFFICE 27593 [facility] 1 1 T VISIT 15 MINUTES OFFICE 90973 [facility] OUT[facility] 1 1 T VISIT 15 MINUTES OFFICE 57757 [facility] OUT[facility] 1 1 PAIN T VISIT MEDICIINE 15 PSC MINUTES [facility] [place] - 1 1 [facility] T OFFICE 82410 [facility] OUT[facility] 1 1 T VISIT 15 MINUTES OFFICE 98095 [facility] OUTPATI[facility] 1 1 PAIN KEYONNA T VISIT MEDICIINE 25 PSC MINUTES OFFICE 81682 [facility] 1 1 T VISIT 15 MINUTES OFFICE 18928 [facility] OUT[facility] 1 1 T VISIT 15 MINUTES OFFICE 30311 [facility] OUT[facility] 1 1 PAIN KEYONNA T VISIT MEDICIINE 25 PSC MINUTES OFFICE 28002 [facility] OUTPATI[facility] 1 1 PAIN KEYONNA T VISIT MEDICIINE 40 PSC MINUTES OFFICE 10446 [facility] 1 1 T VISIT 15 MINUTES OFFICE 95149 [facility] OUT[facility] 1 1 T VISIT 15 MINUTES OFFICE 37153 [facility] OUT[facility] 1 1 T VISIT 25 MINUTES [facility] [place] [facility] 1 1 [facility] OFF[facility] 74613 [facility] OUTPATIEN 1 1 T VISIT 15 MINUTES OFFICE 02307 [facility] OUTPATIEN 1 1 T VISIT 25 [facility]UTES [facility] T OFF[facility] 55802 [facility] MUR OUTPATIEN 1 1 T VISIT 25 MINUTES EMERGENCY 60420 [facility] 1 1 [facility] T VISIT HIGH/URGE NT SEVERITY HOSPITAL [facility] - 1 1 [facility] T
--- OUTSIDE RECORDS SUMMARY | 2017-07-08 11:53 | External Medical Summary Rpt ---
Author Author RADHA Yaniv, [facility] [employer] Organization [employer] Address Unknown Phone Unavailable Results INR in Blood by Coagulation assay Observa Value Referen Units Interpr Notes Date tion ce etation Range IS PATIENT ON ANTICOAGULANTS? Y LIST ANTICOAGULANTS: COUMADIN PTT RESULTS MUST BE CALLED IF PT ON HEPARIN!!! Y INR in 0.9 - 1.1 No High INDICATIO Jul 01 Blood by informati N 2016 9:10 Coagulati on in PM on assay source INR data RANGETHER APY FOR DVT, PE, ATRIAL FIB; 2.0 - 3.0PROPHY LAXIS FOR VTETHERAP Y FOR MECHANICA L HEART 2.5 - 3.5VALVE; PREVENTIO N OF SYSTEMICE MBOLISM SECONDARY TO AMI Prothromb 9.4 - SECONDS High No Jul 01 in time 11.8 informati 2017 9:10 (PT) in on in PM Platelet source poor data plasma by Coagulati on assay Activated partial thrombplastin time (aPTT) in Platelet poor plasma by Coagulation assay Observa Value Referen Units Interpr Notes Date tion ce etation Range IS PATIENT ON ANTICOAGULANTS? Y LIST ANTICOAGULANTS: COUMADIN PTT RESULTS MUST BE CALLED IF PT ON HEPARIN!!! Y Activated 23.6 - SECONDS High RESULTS Jul 01 partial 34.0 CALLED TO 2017 9:10 thrombpla M PM stin db OLIVER (aPTT) TAX SPECIALIST in (PATIENT Platelet ON poor COUMADIN) plasma by 07/01/17 2250 Coagulati Sariah Baldwin on assay hn CBC W Auto Differential panel in Blood Observa Value Referen Units Interpr Notes Date tion ce etation Range Basophils 0 - 0.2 K/MM3 Normal No Jul 01 informati 2016 9:10 [#/volume on in PM ] in source Blood by data Automated count Basophils 0.1 - 2.0 % Normal No Jul 01 /100 informati 2017 9:10 leukocyte on in PM s in source Blood by data Automated count Eosinophi 0.0 - 0.4 K/mm3 Normal No Oct 6 ls informati 2016 9:10 [#/volume on in PM ] in source Blood by data Automated count Eosinophi 0.1 - % Normal No Jul 01 ls/100 12.0 informati 2016 9:10 leukocyte on in PM s in source Blood by data Automated count Granulocy 1.3 - 8.0 K/mm3 Normal No Jun 6 constantino informati 2016 9:10 [#/volume on in PM ] in source Blood by data Automated count Granulocy 37.0 - % Normal No Jul 01 constantino/100 80.0 informati 2016 9:10 leukocyte on in PM s in source Blood by data Automated count Hematocri 42.0 - % Normal No Jul 01 t [Volume 52.0 informati 2016 9:10 on in PM Fraction] source of Blood data Hemoglobi 14.1 - g/dL Normal No Jul 01 n 18.0 informati 2016 9:10 [Mass/vol on in PM ume] in source Blood data Lymphocyt 0.7 - 4.5 K/mm3 Normal No Jul 01 es informati 2016 9:10 [#/volume on in PM ] in source Unspecifi data ed specimen by Automated count Lymphocyt 10 - 50 % Normal No Jul 01 es informati 2017 9:10 [#/volume on in PM ] in source Unspecifi data ed specimen by Automated count Erythrocy 27 - 31.2 pg High No Jul 01 te mean informati 2016 9:10 corpuscul on in PM ar source hemoglobi data n [Entitic mass] Erythrocy 31.8 - g/dl Normal No Jul 01 te mean 35.4 informati 2016 9:10 corpuscul on in PM ar source hemoglobi data n concentra tion [Mass/vol ume] by Automated count Erythrocy 82.2 - fl Normal No Jul 01 te mean 97.8 informati 2016 9:10 corpuscul on in PM ar volume source [Entitic data volume] by Automated count Monocytes 0.1 - 1.0 K/mm3 Normal No Jun 6 informati 2016 9:10 [#/volume on in PM ] in source Blood by data Automated count Monocytes 1.7 - 9.3 % Normal No Jun 6 /100 informati 2016 9:10 leukocyte on in PM s in source Blood by data Automated count Platelet 7.4 - fl Normal No Jul 01 mean 10.4 informati 2017 9:10 volume on in PM [Entitic source volume] data in Blood by Automated count Platelets 142 - 424 K/mm3 Low No Oct 6 informati 2017 9:10 [#/volume on in PM ] in source Blood data Erythrocy 4.6 - 6.2 M/mm3 Normal No Oct 6 constantino informati 2017 9:10 [#/volume on in PM ] in source Amniotic data fluid Erythrocy 11.5 - % Normal No Jun 6 te 17.5 informati 2017 9:10 distribut on in PM ion width source [Entitic data volume] by Automated count Leukocyte 4.8 - K/MM3 Normal No Oct 6 s 10.8 informati 2017 9:10 [#/volume on in PM ] in source Blood data
--- OUTSIDE RECORDS SUMMARY | 2017-07-08 11:53 | External Medical Summary Rpt | CCD ---
Author Author , [facility] Organization [facility] Address Unknown Phone [email or web address] Immunization Name Date Rout CVX Reac Dose Comm Prov Is Faci e tion ent ider Refu lity Give sed n PPV2 03-1 33 0.5 Hist [facility] No [facility] 3 3-20 mL oric 1 1 15 al Info rmat ion - Sour ce Unsp ecif ied Infl 03-1 140 0.5 Hist [facility] No [facility] uenz 3-20 mL oric 1 1 a, 15 al P-Fr Info ee rmat ion - Sour ce Unsp ecif ied
--- OUTSIDE RECORDS SUMMARY | 2017-07-08 11:53 | External Medical Summary Rpt ---
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
--- OUTSIDE RECORDS SUMMARY | 2017-07-08 11:53 | External Medical Summary Rpt | CCD ---
Author Author , [facility] Organization [facility] Address Unknown Phone [email or web address] Immunization Name Date Rout CVX Reac Dose [...]
== END 2017-07-02 00:07 | disposition home or self-care (01) ==
LOC: ER 21:07
PROVIDERS: Emergency Medicine
DX: R07.89 Other chest pain (principal); N28.9 Disorder of kidney and ureter, unspecified; F17.210 Nicotine dependence, cigarettes, uncomplicated; F41.9 Anxiety disorder, unspecified; F32.9 Major depressive disorder, single episode, unspecified; N40.0 Benign prostatic hyperplasia without lower urinary tract symptoms; E11.9 Type 2 diabetes mellitus without complications; K21.9 Gastro-esophageal reflux disease without esophagitis; J44.9 Chronic obstructive pulmonary disease, unspecified; E78.5 Hyperlipidemia, unspecified; I10 Essential (primary) hypertension; Z79.01 Long term (current) use of anticoagulants; Z86.718 Personal history of other venous thrombosis and embolism; Z79.4 Long term (current) use of insulin; Z86.711 Personal history of pulmonary embolism; Z90.5 Acquired absence of kidney; Z85.46 Personal history of malignant neoplasm of prostate; Z85.528 Personal history of other malignant neoplasm of kidney; Z85.51 Personal history of malignant neoplasm of bladder; Z79.891 Long term (current) use of opiate analgesic; Z79.51 Long term (current) use of inhaled steroids; Z79.899 Other long term (current) drug therapy

== ENCOUNTER 2017-07-05 14:53 | Observation (INO) | payer MEDICARE, MEDICAID ==
[~2017-07-05] VITALS: Ht 190.5 cm; Wt 137.5 kg
[~2017-07-05 14:53] MED LIST changes: +ERYTHROMYC3.5 GM/TUB OP; +ETODOLAC200 MG PO
[2017-07-05 17:02] VITALS: BP 141/80
[2017-07-05] MEDS ORDERED: RANITIDINE HCL150 MG PO (17:08)
[2017-07-05] MEDS ORDERED: LEVAQUIN500 MG PO (17:12)
[2017-07-05] MEDS ORDERED: ASPIRIN 81MG TA81 MG PO (17:16)
[2017-07-05] MEDS ORDERED: FLUTICASONE 50M16 GM (17:16)
[2017-07-05 17:20] VITALS: BP 141/80
[2017-07-05 18:48] LABS: HEMOGLOBIN 14.2 g/dL (14.1-18.0); LYMPH # 1.2 K/mm3 (0.7-4.5); LYMPH % 18.4 % (10-50)
[2017-07-05 19:12] LABS: BUN 20 mg/dL (7-18)
[2017-07-05 19:20] LABS: GFR (ESTIMATED) 28 ML/MIN (>60)
[2017-07-05 19:51] VITALS: BP 153/86
--- NOTE | 2017-07-05 21:37 | HISTORY AND PHYSICAL REPORT ---
Demographics: Admit date: 07/05/17 Chief complaint: chest pain PRIMARY DIAGNOSIS: ANGINA Allergies: Coded Allergies: No Known Allergies (06/01/17) History of present illness: History of present illness: this wm presented to card clinic with intetmittant chest pain over the lst few days - pt had been seen in [place] and [facility] ed with chest pain - pt had sig hx of heart disease and has diabetes and tob use and htn - pt with prob antwon score of 3 - pt was seen by card and admitted for eval and treatment Past medical history: Family HX Family Hx Insignificant Yes Immunization HX DT/Tetanus Unknown Flu Refused Pneumonia Refuses TB Test in last year No General CAD? No Angina: No CA: No Hypertension? Yes Hyperlipidemia? Yes CHF? No DVT? Yes PE? Yes COPD? Yes Asthma? No Anemia? No GERD? Yes Gastric ulcers? No GI Bleed? No Hernia? No Thyroid Problems? No Hypothyroidism? No CVA? No Seizures? No Diabetes? Yes Insulin Dependent: Yes Insulin Pump: No Home FSBS? Yes Renal Insuffiency? No UTI? No Stones? No BPH? Yes GB Disease: No Nephritic Syndrome? No Asplenia? No Hepatitis? No Sickle Cell Disease? No Arthritis? No Migraines? No Cataracts? No Glaucoma? No MRSA? No HIV? No TB? No Anxiety? Yes Depression? 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 No Past Surgical HX Previous Surgery?Y KIDNEY REMOVED SHOULDER STOMACH SURGERY LEFT ELBOW RIGHT ARM Back Surgery LEFT KIDNEY STANISLAV FILTER LEFT PARTIAL KIDNEY STOMACH SURGERY BACK SURGERY LUMBAR Current home meds: Active Scripts Cyclobenzaprine Hcl (Flexeril) 5 MG PO BID #6 TAB Prov: 11/17/16 Discontinued Scripts Etodolac 200 MG PO QIDP PRN pain #20 CAP Prov: 06/01/17 DC: 06/30/17 0000 Reported Medications WARFARIN SOD (Warfarin 5MG) 5 MG PO T,R,S,SUN WARFARIN SOD (Warfarin 5MG) 7 MG PO M,W,F Ranitidine Hcl (Ranitidine 150MG) 150 MG PO BID Levofloxacin (Levaquin 500MG) 500 MG PO DAILY FLUTICASONE PROPIONATE (Fluticasone 50MCG Nasal [place]) 2 SPRAY NA DAILY ASPIRIN (Aspirin) 81 MG PO DAILY Carvedilol (Coreg) 25 MG PO BID Lisinopril 40 MG PO DAILY #30 Omeprazole (Omeprazole 40MG) 40 MG PO DAILY TAMSULOSIN HCL (Tamsulosin 0.4MG) 0.4 MG PO QHS Amlodipine Besylate (Amlodipine) 10 MG PO DAILY Rosuvastatin Calcium (Crestor) 40 MG PO QHS INSULIN ASPART (Novolog) 4 U SC AC VENLAFAXINE HCL (Venlafaxine HCl ER) 75 MG PO QHS FENOFIBRATE NANOCRYSTALLIZED (Fenofibrate) 145 MG PO DAILY #30 Isosorbide Mononitrate (Isosorbide Mononitrate ER) 30 MG PO DAILY #30 FLUTICASONE/SALMETEROL (Advair 250-50 Diskus) 1 PUFF IN BID Social Hx: Smoking HX Tobacco Yes Type Cigarettes Packs/day 1 1/2 - 2 PACKS Are you/the child exposed to second-hand smoke: Yes Alcohol Alcohol: No Hx of Drug Use Drug Use? No Patien't marital status is Patient's support system is good Review of systems: Constitutional No: fever. Eyes No: drainage. Ears, Nose, Mouth, Throat No ear discharge, No epistaxis, No throat pain Respiratory No: cough, shortness of breath, wheezing. Cardiovascular see HPI, chest pain, No palpitations, No syncope Gastrointestinal/Abdominal see HPI, No diarrhea, nausea, poor appetite, poor fluid intake, No vomiting Genitourinary No: dysuria, frequency, hesitancy, hematuria. Musculoskeletal No: back pain, joint pain, joint swelling, neck pain. Skin No: rash. Neurological No: headache, seizure disorder. Psychiatric No: anxious, depressed. Exam: Lab data for last 24 hours: Laboratory Tests 07/05/17 1715: Sodium 134 L, Potassium 4.2, Chloride 102, Carbon Dioxide 28, BUN 20 H, Creatinine 2.4 H, Estimated Creat Clear 62, Estimated GFR (MDRD) 28, Glucose 133 H, Calcium 8.1 L, Total Bilirubin 0.4, AST 11 L, ALT 20, Alkaline Phosphatase 35 L, Creatine Kinase 126, CK-MB (CK-2) Rel Index 1.2, CK and CKMB Interp 1.5, Troponin I < 0.02, Total Protein 6.1 L, Albumin 2.9 L, Globulin 3.2, Albumin/Globulin Ratio 0.9 L, WBC 6.3, RBC 4.61, Hgb 14.2, Hct 40.7 L, MCV 88.3, RDW 13.1, Plt Count 111 L, MPV 8.5, Gran % 72.2, Gran # 4.6, Lymphocytes % 18.4, Monocytes % 6.3, Eosinophils % 2.2, Basophils % 0.9, Lymphocytes # 1.2, Monocytes # 0.4, Eosinophils # 0.1, Basophils # 0.1, PUBS MCHC 34.9, MCH 30.8 Admission vital signs: 1ST Vital Signs Result Date Time Pulse Ox 95 07/05 1702 B/P 141/80 07/05 1702 O2 Delivery ROOM AIR 07/05 1702 Temp 98.4 07/05 1702 Pulse 74 07/05 1702 Resp 18 07/05 1702 Exam General appearance: alert, awake Eyes: PERRLA ENT: dry mucous membranes Neck: no JVD Cardiovascular: regular rate & rhythm, murmur Respiratory: clear to auscultation, no respiratory distress ABD: soft, no tenderness, no guarding Genitourinary: no hematuria Extremities: moves all Musculoskeletal: equal muscle strength Skin: dry 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 Renal insufficiency 2. Chest pain 3. Tobacco use Plan: will admit and have card see pt for eval and prob cath at 2130
[2017-07-05 23:56] VITALS: BP 160/81
[2017-07-06] VITALS (16 sets, daily range): BP systolic 129–189; BP diastolic 63–105
[2017-07-06 06:58] LABS: HEMOGLOBIN 13.3 g/dL (14.1-18.0); LYMPH # 1.2 K/mm3 (0.7-4.5); LYMPH % 23.1 % (10-50)
--- NOTE | 2017-07-06 07:26 | PHARMACY CLINIC NOTE ---
Patient Demographics Patient Demographics Admission date: 07/05/17 Date: 07/06/17 Time: 07 Allergies Coded Allergies: No Known Allergies (06/01/17) HEIGHT- FT: 6 IN: 3.00 K.497 VTE General Information Labs: Laboratory Tests 07/06 1715 Coagulation PT (9.4 - 11.8 SECONDS) 23.6 H INR (0.9 - 1.1) 2.17 H Hematology Hgb (14.1 - 18.0 g/dL) 13.3 L 14.2 Hct (42.0 - 52.0 %) 37.6 L 40.7 L Plt Count (142 - 424 K/mm3) 86 L 111 L Disclaimer The following section includes nursing documentation that has been pulled in for pharmacy review. Patient's VTE score: 2 Patient's VTE Risk: VERY LOW RISK Clinical trial participant? No VTE prophylaxis [id number] VTE prophylaxis ordered? Yes Type of prophylaxis/treatment: CORTNEY at 0725
--- NOTE | 2017-07-06 10:55 | ACUTE CARE PROGRESS NOTE (QUA) ---
Progress Notes Subjective Date 07/06/17 Time 0930 Note Pt is still with intermittent CP. This is a pressure, crushing sensation. comes and goes. associated with SOB. Rest and exertion. pt with [facility]. will undergo LHC today. no fever, chills, n/v/d. Objective Findings Last VS-Temp:97.8 B/P:176/94 Pulse:69 Resp:20 SaO2:95 OXYGEN Last weight lbs:303 oz:2 K.497 Method:Bed Scales Exam General appearance: normal appearance, alert, active, awake, face symmetric, no acute distress Eyes: normal exam, anicteric, conjunctiva clear, PERRLA, sclera clear ENT: normal exam, mucous membranes moist, nose normal, pharynx normal Neck: normal inspection, non-tender, no carotid bruit, no JVD, full range of motion, range of motion, supple Cardiovascular: normal exam, no JVD, no ectopics, normal sinus rhythm, PMI normal, regular rate & rhythm, no murmur, edema (pitting) Respiratory: aerating well, clear to auscultation, chest non-tender, good air movement, no respiratory distress, diminished breath sounds ABD: normal exam, non-distended, normal bowel sounds, no rebound, soft, no tenderness, no guarding, no organomegaly, no palpable mass Extremities: full range of motion, moves all, normal capillary refill, femoral pulses (diminished), warm, pedal pulses (diminished), edema Musculoskeletal: normal exam, equal muscle strength, motor intact Skin: normal exam, dry, intact Neuro: normal exam, 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 Renal insufficiency 2. Chest pain 3. Tobacco use Patient condition Guarded Plan: continue current care, [facility] This inpt stay is expected to cross 2 MNs from start of care Yes Comments: Impression List: [place] HTN HLD SOB CKD, stage 4, s/p nephrectomy plan: 1. pt admitted from the office with [facility]. Still with intermittent symptoms at rest and with exertion. Will plan to proceed with LHC with R radial access. 2. Pt educated on the risks and benefits of LHC. Pt verbalized understanding and is agreeable in proceeding with LHC. 3. BP is high. will adjust medications following LHC if necessary. 4. LDL goal is < 70. 5. CKD is present. he is s/p nephrectomy. Pt will require fluids following LHC given his CKD, stage 4. 6. Tobacco cessation is advised and counseled. 7. echo 8. lipid panel. 9. further recommendations pending the patient's response to treatment and results of LHC today. Thank you for the opportunity to help participate in the care of this patient. at [phone]
--- NOTE | 2017-07-06 10:55 | ACUTE CARE PROGRESS NOTE (QUA) ---
Progress Notes Subjective Date 07/06/17 Time 0930 Note Pt is still with intermittent CP. This is a pressure, crushing sensation. comes and goes. associated with SOB. Rest and exertion. pt with [facility]. will undergo LHC today. no fever, chills, n/v/d. Objective Findings Last VS-Temp:97.8 B/P:176/94 Pulse:69 Resp:20 SaO2:95 OXYGEN Last weight lbs:303 oz:2 K.497 Method:Bed Scales Exam General appearance: normal appearance, alert, active, awake, face symmetric, no acute distress Eyes: normal exam, anicteric, conjunctiva clear, PERRLA, sclera clear ENT: normal exam, mucous membranes moist, nose normal, pharynx normal Neck: normal inspection, non-tender, no carotid bruit, no JVD, full range of motion, range of motion, supple Cardiovascular: normal exam, no JVD, no ectopics, normal sinus rhythm, PMI normal, regular rate & rhythm, no murmur, edema (pitting) Respiratory: aerating well, clear to auscultation, chest non-tender, good air movement, no respiratory distress, diminished breath sounds ABD: normal exam, non-distended, normal bowel sounds, no rebound, soft, no tenderness, no guarding, no organomegaly, no palpable mass Extremities: full range of motion, moves all, normal capillary refill, femoral pulses (diminished), warm, pedal pulses (diminished), edema Musculoskeletal: normal exam, equal muscle strength, motor intact Skin: normal exam, dry, intact Neuro: normal exam, 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 Renal insufficiency 2. Chest pain 3. Tobacco use Patient condition Guarded Plan: continue current care, [facility] This inpt stay is expected to cross 2 MNs from start of care Yes Comments: Impression List: [place] HTN HLD SOB CKD, stage 4, s/p nephrectomy plan: 1. pt admitted from the office with [facility]. Still with intermittent symptoms at rest and with exertion. Will plan to proceed with LHC with R radial access. 2. Pt educated on the risks and benefits of LHC. Pt verbalized understanding and is agreeable in proceeding with LHC. 3. BP is high. will adjust medications following LHC if necessary. 4. LDL goal is < 70. 5. CKD is present. he is s/p nephrectomy. Pt will require fluids following LHC given his CKD, stage 4. 6. Tobacco cessation is advised and counseled. 7. echo 8. lipid panel. 9. further recommendations pending the patient's response to treatment and results of LHC today. Thank you for the opportunity to help participate in the care of this patient. at [phone]
--- NOTE | 2017-07-06 11:39 | ACUTE CARE PROGRESS NOTE (QUA) ---
Progress Notes Subjective Date 07/06/17 Time 0830 Note chest pain Patient/family reports: chest pain Nursing reports: pain Objective Findings Last VS-Temp:97.8 B/P:196/108 Pulse:73 Resp:20 SaO2:97 OXYGEN Last weight lbs:303 oz:2 K.497 Method:Bed Scales Exam General appearance: alert, active Eyes: anicteric, PERRLA ENT: dry mucous membranes Neck: no JVD Cardiovascular: regular rate & rhythm, murmur Respiratory: clear to auscultation ABD: soft Genitourinary: no hematuria Extremities: moves all Musculoskeletal: equal muscle strength Skin: dry Neuro: alert, syruper II-XII nml as tested Reviewed: allergies, medications, vital signs, lab results, consult note Assessment/Plan Problem List 1. Renal insufficiency 2. Chest pain 3. Tobacco use Patient condition Stable Plan: continue current care This inpt stay is expected to cross 2 MNs from start of care Yes Comments: . pt admitted from the office with [facility]. Still with intermittent symptoms at rest and with exertion. Will plan to proceed with LHC with R radial access. 2. Pt educated on the risks and benefits of LHC. Pt verbalized understanding and is agreeable in proceeding with LHC. 3. BP is high. will adjust medications following LHC if necessary. 4. LDL goal is < 70. 5. CKD is present. he is s/p nephrectomy. Pt will require fluids following LHC given his CKD, stage 4. 6. Tobacco cessation is advised and counseled. 7. echo 8. lipid panel. 9. further recommendations pending the patient's response to treatment and results of LHC today. Thank you for the opportunity to help participate in the care of this patient. at [phone] <Electronically signed by ABDON LONDON> 07/06/17 1055 I: 07/06/17 AT: 1044 CC: ABDON LONDON MD, Jonathan at [id number]
--- NOTE | 2017-07-06 11:39 | ACUTE CARE PROGRESS NOTE (QUA) ---
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 Renal insufficiency 2. Chest pain 3. Tobacco use Patient condition Stable Plan: continue current care This inpt stay is expected to cross 2 MNs from start of care Yes Comments: . pt admitted from the office with [facility]. Still with intermittent symptoms at rest and with exertion. Will plan to proceed with LHC with R radial access. 2. Pt educated on the risks and benefits of LHC. Pt verbalized understanding and is agreeable in proceeding with LHC. 3. BP is high. will adjust medications following LHC if necessary. 4. LDL goal is < 70. 5. CKD is present. he is s/p nephrectomy. Pt will require fluids following LHC given his CKD, stage 4. 6. Tobacco cessation is advised and counseled. 7. echo 8. lipid panel. 9. further recommendations pending the patient's response to treatment and results of LHC today. Thank you for the opportunity to help participate in the care of this patient. at 1055 <Electronically signed by ABDON LONDON> 07/06/17 1055 I: 07/06/17 AT: 1044 CC: ABDON LONDON MD, Jonathan at 0226
--- NOTE | 2017-07-06 13:17 | RADIOLOGY REPORT PS360 ---
CARDIAC CATHETERIZATION DATE OF CATHETERIZATION:07/06/2017 10:08 AM PROCEDURES: 1. Left heart catheterization 2. Left ventriculogram 3. Selective coronary angiogram 4. FFR to the LAD 5. Drug-eluting stent deployment to the proximal LAD 6. Drug-eluting stent deployment to the right coronary arteries large posterior descending artery INDICATION FOR TEST: 1. Coronary artery disease 2. Angina pectoris class IV 3. Ischemic response to adenosine in the LAD with an FFR index of 0.79 Informed consent was obtained prior to the procedure. COMPLICATIONS: None ESTIMATED BLOOD LOSS: Less than 10 ml. TECHNIQUE: One percent lidocaine used to anesthetize the right anterior aspect of the wrist. The right radial artery was accessed via the Seldinger technique. A 6 Syriac sheath was placed in the right radial artery. 2.5 mg of verapamil, 800 mcg of nitroglycerin and 5000 U Heparin were given through the arterial sheath. The trap catheter was used to perform left heart catheterization left ventriculogram and selective coronary angiography. Following the diagnostic angiogram and additional 7000 units of heparin was administered intravenously giving an ACT out of range. An [employer] left guide catheter was placed in the ascending aorta and an FFR wire was normalized. The guide catheter was used intubate the left main artery and placed in the LAD. Adenosine was infused in the FFR index dropped to 0.79. A 4 mm x 8 mm resolute Laurent stent was deployed at 16 filipe in the proximal LAD reducing the stenosis to 0%. RAJ II flow was improved to RAJ-3 flow. Following this the guide catheter was used intubate the right coronary artery and the same wire was placed into the posterior descending artery. A 2.5 x 12 mm resolute Stockton stent was deployed in the posterior descending artery at 22 filipe reducing the stenosis to 0%. Brilinta 180 mg orally was given on the table. At the end of the procedure the sheath was removed good hemostasis was achieved using TR banding patient was transferred to the postop holding area in stable condition ANGIOGRAPHIC RESULTS: 1. The left main artery normal 2. The left anterior descending artery has a double density and possible even dissection flap immediately adjacent to the first diagonal artery. The mid vessel then has 30% stenoses. Slow flow is present down the LAD. After the stent was deployed the lesion proximally was completely reduced to 0% with improvement and normal flow down the LAD 3. The circumflex artery nondominant vessel and has mid vessel 30% stenoses 4. The right coronary artery is a large dominant vessel with mild 10% proximal stenoses and a focal 70% eccentric stenosis at the posterior descending artery 5. The PORTER ventriculogram reveals normal ejection fraction at 65% 6. The left ventricular end-diastolic pressure 10 to 15 mmHg IMPRESSION: 1. Abnormal proximal LAD lesion possibly spontaneous dissection which produced slow flow and an ischemic response to adenosine with an FFR index of 0.79 2. Successful drug-eluting stent deployment to the proximal LAD hemodynamically severe lesion reduced to 0% with 1 drug-eluting stent 3. Severe stenosis and large posterior descending artery 4. Successful stenting of the large posterior descending artery off the right coronary artery severe disease reduced to 0% with 1 drug-eluting stent 5. Normal ejection fraction 6. Normal to mildly elevated LVEDP PLAN: 1. Brilinta and aspirin 2. LDL less than 55 3. Risk factor modification 4. Cardiac rehabilitation 5. Avoidance of tobacco products
[2017-07-07] VITALS (13 sets, daily range): BP systolic 118–178; BP diastolic 70–98
--- NOTE | 2017-07-07 09:18 | ACUTE CARE PROGRESS NOTE (QUA) ---
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 Renal insufficiency 2. Chest pain 3. Tobacco use 4. CAD (coronary artery disease) Patient condition Improving Plan: continue current care This inpt stay is expected to cross 2 MNs from start of care Yes Comments: will discuss with card at 0917
--- NOTE | 2017-07-07 09:18 | ACUTE CARE PROGRESS NOTE (QUA) ---
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 Renal insufficiency 2. Chest pain 3. Tobacco use 4. CAD (coronary artery disease) Patient condition Improving Plan: continue current care This inpt stay is expected to cross 2 MNs from start of care Yes Comments: will discuss with card at 0917
--- NOTE | 2017-07-07 13:09 | DISCHARGE SUMMARY STANDARD ---
Demographics Admit date: 07/05/17 Discharge date: 07/07/17 History of present illness History of present illness this wm presented to card clinic with intetmittant chest pain over the lst few days - pt had been seen in [place] [facility] with chest pain - pt had sig hx of heart disease and has diabetes and tob use and htn - pt with prob antwon score of 3 - pt was seen by kenia and admitted for eval and treatment Hospital Course Hospital Course: pt was seen by kenia -pression List: [facility] HTN HLD SOB CKD, stage 4, s/p nephrectomy plan: 1. pt admitted from the office with [facility]. Still with intermittent symptoms at rest and with exertion. Will plan to proceed with LHC with R radial access. 2. Pt educated on the risks and benefits of LHC. Pt verbalized understanding and is agreeable in proceeding with LHC. 3. BP is high. will adjust medications following LHC if necessary. 4. LDL goal is < 70. 5. CKD is present. he is s/p nephrectomy. Pt will require fluids following LHC given his CKD, stage 4. 6. Tobacco cessation is advised and counseled. 7. echo 8. lipid panel. 9. further recommendations pending the patient's response to treatment and results of LHC today. pt had persistant chest pain and cath was done pression List: [place] HTN HLD SOB CKD, stage 4, s/p nephrectomy pt was seen by kenia and had cath as he had persistant pain- Abnormal proximal LAD lesion possibly spontaneous dissection which produced slow flow and an ischemic response to adenosine with an FFR index of 0.79 2. Successful drug-eluting stent deployment to the proximal LAD hemodynamically severe lesion reduced to 0% with 1 drug-eluting stent 3. Severe stenosis and large posterior descending artery 4. Successful stenting of the large posterior descending artery off the right coronary artery severe disease reduced to 0% with 1 drug-eluting stent 5. Normal ejection fraction 6. Normal to mildly elevated LVEDP PLAN: 1. Brilinta and aspirin 2. LDL less than 55 3. Risk factor modification 4. Cardiac rehabilitation 5. Avoidance of tobacco products Discharge diagnoses Problem List 1. Renal insufficiency 2. Chest pain 3. Tobacco use 4. CAD (coronary artery disease) Medications Medications: Discharge meds are as noted. Comment: will see kenia for follow up and his pcp Follow up Follow up in office in: 2 WEEKS with: Jonathan Calles MD at 0445
--- NOTE | 2017-07-07 13:09 | DISCHARGE SUMMARY STANDARD ---
Demographics Admit date: 07/05/17 Discharge date: 07/07/17 History of present illness History of present illness this wm presented to card clinic with intetmittant chest pain over the lst few days - pt had been seen in [place] and [facility] with chest pain - pt had sig hx of heart disease and has diabetes and tob use and htn - pt with prob antwon score of 3 - pt was seen by kenia and admitted for eval and treatment Hospital Course Hospital Course: pt was seen by kenia -pression List: [facility] HTN HLD SOB CKD, stage 4, s/p nephrectomy plan: 1. pt admitted from the office with [facility]. Still with intermittent symptoms at rest and with exertion. Will plan to proceed with LHC with R radial access. 2. Pt educated on the risks and benefits of LHC. Pt verbalized understanding and is agreeable in proceeding with LHC. 3. BP is high. will adjust medications following LHC if necessary. 4. LDL goal is < 70. 5. CKD is present. he is s/p nephrectomy. Pt will require fluids following LHC given his CKD, stage 4. 6. Tobacco cessation is advised and counseled. 7. echo 8. lipid panel. 9. further recommendations pending the patient's response to treatment and results of LHC today. pt had persistant chest pain and cath was done pression List: [place] HTN HLD SOB CKD, stage 4, s/p nephrectomy pt was seen by kenia and had cath as he had persistant pain- Abnormal proximal LAD lesion possibly spontaneous dissection which produced slow flow and an ischemic response to adenosine with an FFR index of 0.79 2. Successful drug-eluting stent deployment to the proximal LAD hemodynamically severe lesion reduced to 0% with 1 drug-eluting stent 3. Severe stenosis and large posterior descending artery 4. Successful stenting of the large posterior descending artery off the right coronary artery severe disease reduced to 0% with 1 drug-eluting stent 5. Normal ejection fraction 6. Normal to mildly elevated LVEDP PLAN: 1. Brilinta and aspirin 2. LDL less than 55 3. Risk factor modification 4. Cardiac rehabilitation 5. Avoidance of tobacco products Discharge diagnoses Problem List 1. Renal insufficiency 2. Chest pain 3. Tobacco use 4. CAD (coronary artery disease) Medications Medications: Discharge meds are as noted. Comment: will see kenia for follow up and his pcp Follow up Follow up in office in: 2 WEEKS with: Jonathan Calles MD at [phone]
[2017-07-07] MEDS ORDERED: BRILINTA90 M1 PO (13:17)
--- NOTE | 2017-07-07 18:20 | RADIOLOGY REPORT PS360 ---
PROCEDURE: 2-D M-mode and color Doppler study INDICATIONS FOR THE TEST: Chest pain COPD Heart Murmur Tobacco Smoking+ Palpitations Fatigue Syncope Edema+ Hypertension+Diabetes Mellitus+ Rheumatic Fever SOB SINGH Obesity Hyperlipidemia+ Family History HD Additional History KIDNEY, BLADDER, PROSTATE CA PATIENT INFORMATION HEIGHT: 71 WEIGHT:215 GENDER: Male B/P: 2-D/M-MODE INTERPRETATION: 2-D MEASUREMENTS OBSERVED VALUES IN CMS Right Ventricular Dimension (RVDd) 2.5 Interventricular Septum (Thickness)(IVsd) 1.0 Left Ventricular Internal Dimensions(LVIDd) 5.6 Left Ventricular Posterior Wall (Thickness)(LVPWd) 1.0 Aortic Root 3.4 Aortic Cusp Separation 2.2 Left Atrial Dimensions (LAD) 4.1 2D 1. The left atrium is mildly enlarged, left ventricle is normal size, there is mild qualitative concentric left ventricular hypertrophy present, visually estimated ejection fraction 55% with no obvious regional wall motion abnormality. 2. The right atrium and right ventricle are relatively normal size and function. 3. The aortic valve is minimally thickened and fibrosed, leaflet continue to display mobility. 4. The mitral and tricuspid valve leaflets are minimally thickened. 5. The pulmonic valve is poorly visualized. 6. No significant pericardial effusion noted. DOPPLER INTERROGATION: Doppler interrogation of the aortic, mitral and tricuspid valvular presence of mild aortic, mild mitral and tricuspid regurgitation, tricuspid and jet velocity insufficient for calculation of the right ventricular systolic pressure, grade 1 diastolic dysfunction seen with tissue Doppler evidence of raised left atrial pressure. CONCLUSION: 1. Mildly enlarged left atrium, normal left ventricular size, mild concentric left ventricular hypertrophy, visually estimated ejection fraction 55% with no obvious regional wall motion abnormality, grade 1 diastolic dysfunction seen with tissue Doppler evidence of raised left atrial pressure. 2. Mild aortic, mild mitral and tricuspid regurgitation. 3. No significant pericardial effusion noted.
--- OUTSIDE RECORDS SUMMARY | 2017-07-09 06:36 | External Medical Summary Rpt | CCD ---
Author Author , RADHA Organization RADHA Address Unknown Phone [email or web address] Care Team Providers Care Practice Lead Name Role Phone BELL VIOLET, BELL VIOLET Unavailable Unavailable [facility], [facility] Unavailable Unavailable [facility], [facility] Unavailable Unavailable RONALDO STEPHANY, RONALDO Unavailable Unavailable STEPHANY [facility] Unavailable Unavailable MEDICIINE [facility], [facility] [employer] Unavailable Unavailable INC, [employer] Unavailable Unavailable INC, [employer] [facility] Unavailable Unavailable P[facility], [facility] Unavailable Unavailable [facility], [facility] Unavailable Unavailable ASSOCIATES, [facility] Unavailable Unavailable CRITICAL, [facility] KARTIK NEWBY, VERDUGO Unavailable Unavailable KEYONNA BESSON, BESSON Unavailable Unavailable [facility] Unavailable Unavailable IMAGING L, [facility] L [facility] Unavailable Unavailable HOSPITAL, [facility] Unavailable Unavailable PRACTICE L, [facility] BREAZEALE GRA, Unavailable Unavailable BREAZEALE GRA BUX ANJ, BUX ANJ Unavailable Unavailable JOHN CELINA IGN, Unavailable Unavailable JOHN CELINA IGN [facility], Unavailable Unavailable [facility] Unavailable Unavailable PHYS PSC, [...] [facility] Unavailable Unavailable [place], [facility] [place] ESTRADA G, ESTRADA G Unavailable Unavailable EVERMAN VIOLET, EVERMAN Unavailable Unavailable VIOLET BALL THO, Unavailable Unavailable BALL THO KLEIN ALI, KLEIN Unavailable Unavailable ALI VANCE SCO, VANCE Unavailable Unavailable SCO GAGUA IRI, GAGUA IRI Unavailable Unavailable FLORY MIGUEL, FLORY Unavailable Unavailable MIGUEL [facility], [facility] LINDER ISIDORO, LINDER ISIDORO Unavailable Unavailable ADONAY RHO, ADONAY Unavailable Unavailable RHO GUNDUMALLA GOP, Unavailable Unavailable GUNDUMALLA GOP OBREGON PALMIRA, OBREGON Unavailable Unavailable [facility] Unavailable Unavailable INC, [facility] Unavailable Unavailable HOSPITAL P, [facility] HARGROVE GUILHERME, HARGR[facility] GUILHERME Unavailable Unavailable LUIS RADHA, LUIS RADHA Unavailable Unavailable JIM KEITH, JIM KEITH Unavailable Unavailable [facility] Unavailable Unavailable @CTRL BAP, [facility] @[facility] Unavailable Unavailable SERVICES O, HOSPITAL [...] III KEITH, Unavailable Unavailable JAIME III KEITH [facility] Unavailable Unavailable [facility], [facility] Unavailable Unavailable [facility]ING [facility], [facility] Unavailable Unavailable MEDICAL G, [facility] G Emy Saxena MD, Unavailable [...] LINDA [facility], LABORATORY [facility] Unavailable Unavailable AT [facility] Unavailable Unavailable LABORATO, [facility] Unavailable Unavailable LABORATO, [facility] Sumaya Guan MD, Unavailable Unavailable Sumaya GARLAND MD, VIJAY Unavailable Unavailable DADA MENDOZA ANT, KELLY Unavailable Unavailable ANT [facility] Unavailable Unavailable SERVICES, [facility], Unavailable Unavailable PLLC, [facility] Unavailable Unavailable OF [facility], [facility] ANKIT DENISE, ANKIT Unavailable Unavailable DENISE [facility], Unavailable Unavailable [facility], Unavailable Unavailable [facility] Unavailable Unavailable [facility], [facility] Unavailable Unavailable [facility], [facility]SC CIFUENTES LAR, CIFUENTES LAR Unavailable Unavailable PEPE ROQUE GEORGES Unavailable Unavailable CONSULTING SRV, PEPE NEVAREZ MD [...] IV HEN, Unavailable Unavailable WALLS IV HEN [facility] Unavailable Unavailable PULMONARY, [facility] CHRISTIANO OLGA, CHRISTIANO Unavailable Unavailable [...] Unavailable Unavailable PHYSICIAN SERVI, [facility], Unavailable Unavailable [facility], Unavailable Unavailable [facility] Unavailable Unavailable CLINIC, [facility] IRVIN RAY, IRVIN Unavailable Unavailable RAY SWINEY, SWINEY Unavailable Unavailable SWINEY PAT, SWINEY Unavailable Unavailable PAT TALANOW ROL, TALANOW Unavailable Unavailable ROL [facility], Unavailable Unavailable [facility] LUDIVINA III J, LUDIVINA Unavailable Unavailable III J TRUE, TRUE Unavailable Unavailable [facility] Unavailable Unavailable [facility]OCI[facility], [facility], Unavailable Unavailable [facility] WEHRMAN III OLGA, Unavailable Unavailable WEHRMAN III OLGA [facility], [facility] Unavailable Unavailable [facility], [facility] Unavailable Unavailable [facility], [facility] Unavailable Unavailable BATR IV A, Unavailable Unavailable BART IV A [...] 2016 Problems Code Diagnosis DOS Provider Status E11.9 TYPE 2 07-01-2017 DIABETES MELLITUS WITHOUT COMPLICATIO NS E78.00 PURE 07-01-2017 HYPERCHOLES TEROLEMIA, UNSPECIFIED F17.210 NICOTINE 07-01-2017 DEPENDENCE, CIGARETTES, UNCOMPLICAT ED H92.09 OTALGIA, 07-01-2017 UNSPECIFIED EAR I10 ESSENTIAL 07-01-2017 (PRIMARY) HYPERTENSIO N J18.9 PNEUMONIA, 07-01-2017 UNSPECIFIED ORGANISM J44.0 CHRONIC 07-01-2017 OBSTRUCTIVE PULMONARY DISEASE WITH ACUTE LOWER RESPIRATORY INFECTION K21.9 GASTRO-ESOP 07-01-2017 HAGEAL REFLUX DISEASE WITHOUT ESOPHAGITIS N28.9 DISORDER OF 07-01-2017 [facility]RETER, UNSPECIFIED Z79.01 RUBBER CUTTING MACHINE TENDER 07-01-2017 (CURRENT) USE OF ANTICOAGULA NTS Z79.891 RETIREMENT 07-01-2017 (CURRENT) USE OF OPIATE ANALGESIC Z79.899 OTHER LONG 07-01-2017 TERM (CURRENT) DRUG THERAPY Z86.711 PERSONAL 07-01-2017 HISTORY OF PULMONARY EMBOLISM 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 M48.02 SPINAL 06-15-2017 STENOSIS, CERVICAL REGION J449 CHRONIC 06-14-2017 [facility] OBSTRUCTIVE PULMONARY DISEASE UNS M4802 SPINAL 06-14-2017 [facility] REGION 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 06-03-2017 [facility] SINGLE PHYSICIAN THYROID PRACTICE L NODULE G250 ESSENTIAL 06-03-2017 [facility] TREMOR PHYSICIAN PRACTICE L G8929 OTHER 06-03-2017 [facility] CHRONIC PHYSICIAN PAIN PRACTICE L Z95411 UNSPECIFIED 06-01-2017 [facility] CHRONIC PHYSICIANS, CONJUNCTIVI PLLC TIS BILATERAL I10 ESSENTIAL 06-01-2017 [facility] PRIMARY PHYSICIANS, HYPERTENSIO PLLC N J0100 ACUTE 06-01-2017 [facility] MAXILLARY PHYSICIANS, SINUSITIS PLLC UNSPECIFIED M542 CERVICALGIA 06-01-2017 [facility] PH[facility]ICIANS, PLLC N289 DISORDER OF 05-12-2017 [facility] UNSPECIFIED D6859 OTHER 04-22-2017 [facility] PRIMARY [place] THROM[place]OP[place] D78358 OTHER LONG 04-22-2017 [facility] DRUG THERAPY R1012 LEFT UPPER 04-07-2017 [facility] [place] [facility] PAIN R109 UNSPECIFIED 04-07-2017 [facility] ABDOMINAL [facility] PAIN HOSPITAL N189 CHRONIC 03-17-2017 NEW KIDNEY [place] DISEASE [facility]INIC PSC UNSPECIFIED N390 URINARY 03-17-2017 NEW TRACT [facility] INFECTION [facility] PSC SITE NOT SPECIFIED R609 EDEMA 03-08-2017 [facility] UNSPECIFIED PHYSICIAN PRACTICE L J44.9 CHRONIC 02-02-2017 OBSTRUCTIVE PULMONARY DISEASE, UNSPECIFIED K59.00 CONSTIPATIO 02-02-2017 N, UNSPECIFIED Z79.4 RETIREMENT 02-02-2017 (CURRENT) USE OF INSULIN B02.29 OTHER 12-23-2016 POSTHERPETI C NERVOUS SYSTEM INVOLVEMENT R21 RASH AND 12-23-2016 OTHER NONSPECIFIC SKIN ERUPTION E11.65 TYPE 2 12-20-2016 DIABETES MELLITUS WITH HYPERGLYCEM IA E66.01 MORBID 12-20-2016 (SEVERE) OBESITY DUE TO EXCESS CALORIES E78.5 HYPERLIPIDE 12-20-2016 GONZÁLEZ, UNSPECIFIED 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 G44.329 CHRONIC 12-20-2016 POST-TRAUMA TIC HEADACHE, NOT INTRACTABLE I12.9 HYPERTENSIV 12-20-2016 E CHRONIC KIDNEY DISEASE WITH STAGE 1 THROUGH STAGE 4 CHRONIC KIDNEY DISEASE, OR UNSPECIFIED CHRONIC KIDNEY DISEASE J44.1 CHRONIC 12-20-2016 OBSTRUCTIVE PULMONARY DISEASE WITH (ACUTE) EXACERBATIO N N17.9 ACUTE 12-20-2016 KIDNEY FAILURE, UNSPECIFIED N18.3 CHRONIC 12-20-2016 KIDNEY DISEASE, STAGE 3 (MODERATE) N40.0 BENIGN 12-20-2016 PROSTATIC HYPERPLASIA WITHOUT LOWER URINARY TRACT SYMPTOMS Z68.38 BODY MASS 12-20-2016 INDEX (BMI) 38.0-38.9, ADULT Z86.718 PERSONAL 12-20-2016 HISTORY OF OTHER VENOUS THROMBOSIS AND EMBOLISM J159 UNSPECIFIED 12-17-2016 [facility] BACTERIAL PHYSICIAN PNEUMONIA PRACTICE L J181 LOBAR [...] LUNG FIELD C649 MALIGNANT 12-07-2016 NEW NEOPLASM [place] [facility] PSC EXCEPT RENL PELVIS G4733 OBSTRUCTIVE 12-07-2016 NEW SLEEP [place] [facility]A ADULT [facility] PSC PEDIATRIC R351 NOCTURIA 12-07-2016 NEW [place] [facility] PSC Z8546 PERSONAL 12-07-2016 NEW HISTORY [place] MALIGNANT CLINIC PSC NEOPLASM OF PROSTATE Z8551 PERSONAL 12-07-2016 NEW H[facility]ORY [facility] MALIGNANT CLINIC PSC NEOPLASM OF BLADDER B38979 PAIN IN 12-01-2016 [place] LEFT MEDICAL SHOULDER IMAGING ASS D19241 OTHER 12-01-2016 [place] CERVICAL MEDICAL DISC IMAGING ASS DEGENERATIO N AT C5-C6 LEVEL N183 CHRONIC 11-22-2016 [facility] DISEASE OF [place] STAGE 3 MODERATE N3943 POST-VOID 11-22-2016 NEPHROLOGY DRIBBLING ASSOCIATES OF [place] N401 BENIGN 11-22-2016 NEPHROLOGY PROSTATIC ASSOCIATES HYPERPLASIA OF [place] LW URINARY TRACT SX E119 TYPE 2 11-17-2016 [place] DIABETES [facility] P WITHOUT COMPLICATIO NS M791 MYALGIA 11-17-2016 [facility] D61235 PAIN IN 11-17-2016 [facility] LEFT ARM PHYSICIANS, PLLC Z794 RUBBER CUTTING MACHINE TENDER 11-17-2016 [place] CURRENT USE [facility] INSULIN HOSPITAL P M7989 OTHER 11-15-2016 [facility] SPECIFIED MEM HOSP SOFT TISSUE INC DISORDERS Z720 TOBACCO USE 11-15-2016 [facility] [facility] D47247 PERSONAL 11-15-2016 [place] HISTORY OT MEDICAL VENOUS IMAGING ASS THROMBOSIS& EMBOLISM E039 HYPOTHYROID 10-29-2016 [facility] ISM [facility]DA UNSPECIFIED HOLDINGS G894 CHRONIC 10-29-2016 [place] PAIN PHYSICIAN SYNDROME PRACTICE L C61 MALIGNANT 10-28-2016 NEW NEOPLASM OF [place] PROSTATE CLINIC [facility] K219 GASTRO-ESOP 10-15-2016 [facility] H REFLUX MEM HOSP DISEASE INC WITHOUT ESOPHAGITIS M545 LOW BACK 10-15-2016 [facility] PAIN MEM HOS[facility] INC R319 HEMATURIA 10-15-2016 [facility] UNSPECIFIED MEM HOSP INC Z721 10-15-2016 [facility] INC Z7901 RUBBER CUTTING MACHINE TENDER 10-15-2016 [facility] CURRENT USE MEM HOSP OF INC ANTICOAGULA NTS Z791 RETIREMENT 10-15-2016 [facility] CURR MEM [facility]OS[facility] NON-STEROID INC AL&ANTI-INF LAMMATORIES L0211 CUTANEOUS 06-23-2016 [facility] ABSCESS OF MEM HOSP NECK INC C641 MALIGNANT 06-01-2016 NEPHROLOGY NEOPLASM RT ASSOCIATES KIDNEY OF [place] EXCEPT RENAL PELVIS C679 MALIGNANT 06-01-2016 NEPHROLOGY NEOPLASM OF ASSOCIATES BLADDER OF [place] UNSPECIFIED R079 CHEST PAIN 03-11-2016 [facility] UNSPECIFIED EAST R9431 ABNORMAL 03-11-2016 [facility] M4722 OT 03-04-2016 [facility] ANA SPONDYLOSIS W/RADICULOP ATHY CERVICAL REGION M4727 OT 03-04-2016 [facility] ANA SPONDYLOSIS W/RADICULOP ATHY LUMBOSACRAL RGN E042 NONTOXIC 02-09-2016 NE[facility]IAGNO MULTINODULA STICS INC R GOITER J341 CYST AND 02-09-2016 NEURODIAGNO MUCOCELE OF STICS INC NOSE AND NASAL SINUS J342 DEVIATED 02-09-2016 [facility] NASAL STICS INC SEPTUM R9082 WHITE 02-09-2016 [facility]IAGNO MATTER STICS INC DISEASE UNSPECIFIED A60857 PRESENCE OF 02-03-2016 [facility] OTHER HEALTH VASCULAR MEDICAL G IMPLANTS AND GRAFTS D3002 BENIGN 01-28-2016 [facility] NEOPLASM OF REGIONAL LEFT IMAGING L KIDNEY Z32137I OTHER [facility] 01-28-2016 [facility] COMP REGIONAL UMBRELLA IMAGING L DEVICE INITIAL ENCNTR J984 OTHER 12-30-2015 [facility] DISORDERS HEALTH OF LUNG [place] R0600 DYSPNEA 12-30-2015 [facility] UNSPECIFIED HEALTH [place] 4019 UNSPECIFIED 05-22-2015 PEPE NEVAREZ ESSENTIAL HYPERTENSIO CONSULTING N SRV 12035 PRECORDIAL 05-22-2015 PEPE NEVAREZ PAIN CONSULTING SRV 0539 HERPES 05-20-2015 [facility] ZOSTER [facility] WITHOUT INC MENTION OF COMPLICATIO N 496 CHRONIC 05-20-2015 [facility] AIRWAY [facility] OBSTRUCTION INC NEC 7823 EDEMA 05-20-2015 [facility] INC 34862 SHORTNESS 05-20-2015 [facility] OF BREATH MEM HOS[facility] INC 25396 DIAB W/O 05-12-2015 [facility] COMP TYPE N PHYSICIAN II/UNS NOT SERVI STATED UNCNTRL 09219 OBESITY, 05-12-2015 [facility] UNSPECIFIED N PHYSICIAN SERVI 92105 OBSTRUCTIVE 05-12-2015 [facility] CHRONIC N PHYSICIAN BRONCHITIS SERVI WITH EXACERBATIO N 73810 OTHER 05-12-2015 [facility] ABNORMAL N PHYSICIAN GLUCOSE SERVI 03122 HYPERTROPHY 04-24-2015 NEW PROSTATE [place] W/O UR OBST CLINIC PSC & OTH LUTS V1051 PERSONAL 04-24-2015 NEW HISTORY [place] MALIGNANT CLINIC PSC NEOPLASM BLADDER 185 MALIGNANT 04-10-2015 NEW NEOPLASM OF [place] PROSTATE CLINIC PSC 1889 MALIGNANT 04-10-2015 NEW NEOPLASM OF [place] BLADDER CLINIC PSC PART UNSPECIFIED 1890 MALIGNANT 04-10-2015 NEW NEOPLASM OF [place] KIDNEY [facility]IN[facility] PSC EXCEPT PELVIS 87860 HYPERTROPHY 04-10-2015 NEW PROSTATE [place] W/UR OBST & CLINIC PSC OTH LUTS 7226 DEGENERATIO 04-01-2015 [facility]ED N TECHNOLOGIE INTERVERTEB S INC RAL DISC SITE UNSPEC 97083 POSTLAMINEC 04-01-2015 [facility] SYNDROME INC CERVICAL REGION V571 OTHER 04-01-2015 [facility] PHYSICAL [facility] THERAPY INC 37469 DEGEN 03-24-2015 VIJAY GARLAND LUMBAR/LUMB OSACRAL INTERVERTEB RAL DISC 46708 POSTLAMINEC 03-24-2015 VIJAY HOBSON MD SYNDROME LUMBAR REGION 7244 THORACIC/ELEONORA 03-24-2015 VIJAY BUSTOS MD NEURITIS/RA DICULITIS UNSPEC 7231 CERVICALGIA 02-24-2015 [facility] 7840 HEADACHE 02-24-2015 [facility] 7224 DEGENERATIO 01-16-2015 NEURODIAGNO N OF STICS INC CERVICAL INTERVERTEB RAL DISC 45248 MIGRAINE 12-03-2014 [facility] W/O HOSPITAL INTRACTBL W/STATUS MIGRAINOSUS 4010 ESSENTIAL 12-03-2014 [facility] N, MALIGNANT 5849 ACUTE 12-03-2014 [place] [facility] FAILURE UNSPECIFIED 7820 DISTURBANCE 12-03-2014 [facility] 75472 NAUSEA WITH 12-03-2014 [facility] V1255 PERSONAL 12-03-2014 [facility] PULMONARY EMBOLISM V4573 ACQUIRED 12-03-2014 [facility] KIDNEY V1046 PERSONAL 11-26-2014 NEW HISTORY [facility] MALIG[facility]NT [facility]IN[facility] PSC NEOPLASM PROSTATE V1052 PERSONAL 11-26-2014 NEW HISTORY OF [place] MALIGNANT CLINIC PSC NEOPLASM OF KIDNEY 0010 CHOLERA DUE 10-28-2014 [facility] CHOL[facility] LABORATO 305.1 305.1 10-12-2013 [place] TOBACCO USE [facility] DISORDER [facility] 401.9 401.9 10-12-2013 [facility] NOS Hospital 491.22 491.22 10-12-2013 [place] OBSTRUCTIVE [facility] CHRONIC [facility] BRONCHITIS WITH ACUTE BRONCHITIS 466.0 466.0 ACUTE 01-31-2013 [place] BRONCHITIS [facility] V12.52 V12.52 01-31-2013 [place] HX-THROMBOP [facility] HLEBITIS [facility] 250.00 250.00 DIAB 01-13-2013 [facility], TYPE Hospital II OR UNSPEC TYPE, NOT UNCNTRLD 601.0 601.0 ACUTE 01-13-2013 [facility] PROSTATITIS [facility] 7242 LUMBAGO 08-25-2012 [facility] 59102 CHEST PAIN 08-25-2012 [facility] UNSPECIFIED V5861 LONG-TERM 08-25-2012 [facility] (CURRENT) PHYSICIANS USE OF LA ANTICOAGULA NTS 85693 OBSTRUCTIVE 08-09-2012 [facility] SLEEP HOME APNEA MEDICAL EQUIPME 7099 UNSPECIFIED 08-09-2012 [facility] PLEURAL HOME EFFUSION MEDICAL EQUIPME 0750 BENIGN 08-04-2012 JIM KEITH NEOPLASM OF ADRENAL GLAND 37259 HEMATURIA 08-04-2012 JIM KEITH UNSPECIFIED 6822 CELLULITIS 08-04-2012 [facility] AND ABSCESS [facility] 7078 CHRONIC 08-04-2012 [facility] ULCER OF [facility] OTHER HOSP SPECIFIED SITE 46293 OTHER 08-04-2012 [facility] POSTOPERATI [facility] VE HOSP INFECTION NEC 48889 DIAB W/O 08-03-2012 [facility] COMP TYPE I HOME [JUV] NOT MEDICAL STATED EQUIPME UNCNTRL 80175 OTHER 07-27-2012 [facility] CHRONIC PAIN 34404 INTESTINAL 06-30-2012 [facility]FECTIONS EMERGENCY DUE SERVICES CLOSTRIDIUM DIFFICILE 5589 OTH&UNSPEC 06-30-2012 [facility] NONINFECTIO MEM HOSP US INC GASTROENTER ITIS&COLITI S 5699 UNSPECIFIED 06-30-2012 [place] DISORDER MEDICAL OF IMAGING ASS INTESTINE 5920 CALCULUS OF 06-30-2012 [facility] 91005 NAUSEA 06-30-2012 [facility] 49368 DIARRHEA 06-30-2012 [facility] 7891 HEPATOMEGAL 06-30-2012 [facility] Y [facility]ICAL IM[facility] ASS 64388 OTHER 06-27-2012 [facility] MALAISE AND PHYSICIANS FATIGUE LA 2859 UNSPECIFIED 06-16-2012 [facility] ANEMIA 586 UNSPECIFIED 06-16-2012 [facility] RENAL FAILURE V0481 NEED 06-16-2012 [facility] PROPHYLACTI C VACCINATION &INOCULATIO N FLU 8795 OPEN WOUND 06-14-2012 [facility] OF THERAPEUTIC ABDOMINAL SER INC WALL LATERAL COMPLICATED 69167 NON-HEALING 06-14-2012 [facility] SURGICAL THERAPEUTIC WOUND NEC SER INC 33746 DIAB W/O 06-11-2012 [facility] MENTION N EMERGENCY COMP TYPE PHYS II/UNS TYPE UNCNTRL 6829 CELLULITIS 06-11-2012 [facility] [place] AND ABSCESS RADIOLOGY OF UNSPECIFIED SITE 9642 POISONING 06-11-2012 [place] BY INPATIENT ANTICOAGULA MEDICINE NTS 5939 UNSPECIFIED 06-02-2012 [facility] DISORDER OF KIDNEY AND URETER 48134 ACUTE 05-25-2012 [facility] FAILURE PULMONARY 95564 OTHER 05-22-2012 [facility] [place] NONSPECIFIC RADIOLOGY ABNORMAL FINDING OF LUNG FIELD 4264 RIGHT 05-21-2012 NEW B[facility]DLE [facility] PSC BLOCK 2762 ACIDOSIS 05-20-2012 [facility] PULMONARY 4011 ESSENTIAL 05-20-2012 [place] HYPERTENSIO INPATIENT N, BENIGN MEDICINE 70807 FEVER 05-20-2012 [facility] UNSPECIFIED SU[facility] EAST PULMONARY 5180 PULMONARY 05-19-2012 [facility] [place] COLLAPSE RADIOLOGY 19972 SEPSIS 05-19-2012 [facility] PULMONARY 56983 OTHER ACUTE 05-18-2012 [facility]OC[facility] POSTOPERATI PSC VE PAIN V5881 FITTING AND 05-18-2012 [facility] [place] ADJUSTMENT RADIOLOGY OF VASCULAR CATHETER 0389 UNSPECIFIED 05-17-2012 [facility] SEPTICEMIA HOSPITAL 00932 ENCEPHALOPA 05-17-[address] [facility] UNSPECIFIED 28143 OTHER 05-17-2012 NEW SPECIFIED [place] CARDIAC [facility]IC PSC DYSRHYTHMIA S 5845 ACUTE 05-17-2012 [facility] KIDNEY HOSPITAL FAILURE W/LESION TUBULAR NECROSIS 5932 ACQUIRED 05-17-2012 [facility] CYST OF HOSPITAL KIDNEY 65144 SEVERE 05-17-2012 [facility] SEPSIS HOSPITAL 9975 URINARY 05-17-2012 [facility] COMPLICATIO [facility] NS NEC 5969 UNSPECIFIED 05-16-2012 NEW DISORDER [place] OF BLADDER CLINIC PSC V1251 PERSONAL 05-16-2012 [facility] HISTORY, THO VENOUS THROMBOSIS AND EMBOLISM V4589 OTHER 05-16-2012 [facility] POSTSURGICA THO L STATUS OTHER V7283 OTHER 05-16-2012 [facility] [place] SPECIFIED RADIOLOGY PRE-OPERATI VE EXAMINATION V7284 UNSPECIFIED 05-16-2012 NEW [place] PRE-OPERATI CLINIC [facility] VE EXAMINATION 51182 NEOPLASM OF 04-24-2012 P[facility] UNCERTAIN FOOT & BEHAVIOR OF ANKLE SPECI KIDNEY&URET ER 1888 MALIGNANT 04-13-2012 NEW NEOPLASM [place] OTHER CLINIC PSC SPECIFIED SITES BLADDER 21940 OTHER 04-06-2012 [facility] PULMONARY EMBOLISM AND INFARCTION 96831 AC JOE 04-06-2012 [facility] [employer] THROMB HOLDINGS UNSPEC DEEP VES LOWER EXT V5869 LONG-TERM 04-06-2012 [facility] (CURRENT) [facility] USE OF HOSPITAL OTHER MEDICATIONS V711 OBSERVATION 04-06-2012 [facility] [place] FOR RADIOLOGY SUSPECTED MALIGNANT NEOPLASM 4168 OTHER 04-03-2012 [facility] CHRONIC [facility] PULMONARY HOSP HEART DISEASES 4280 CONGESTIVE 04-03-2012 [facility] HEART CARDIOLOGY FAILURE AT CENT UNSPECIFIED 4293 CARDIOMEGAL 04-03-2012 [facility] Y [facility]P 4539 EMBOLISM 04-03-2012 [facility] AND ONCOLOGY THROMBOSIS ASSOCIATES OF UNSPECIFIED SITE 19171 OTHER 03-29-2012 [facility] DYSPNEA AND EMERGENCY [place] [address] ABNORMAL 03-29-2012 [facility] COAGULATION [facility] PROFILE HOSP 7245 UNSPECIFIED 03-20-2012 [facility] 7295 PAIN IN 03-20-2012 [facility] SOFT MEDICAL TISSUES OF GROUP, PLLC LIMB 48033 ABDOMINAL 03-20-2012 [facility] [place] PAIN OTHER RADIOLOGY SPECIFIED SITE 5859 CHRONIC 03-14-2012 HOSP KIDNEY MEDICINE DISEASE SERV @CTRL UNSPECIFIED BAP 94051 HTN CKD UNS 03-08-2012 [facility] W/CKD [facility] STAGE I HOSP THRU STAGE IV/UNS 4162 CHRONIC 03-08-2012 [facility] PULMONARY PULMONARY & EMBOLISM CRITICAL 4242 TRICUSPID 03-08-2012 [facility]ERS [facility] NONRHEUMATI C 69003 CHRN VNUS 03-08-2012 [place] E[facility] & SURGICAL THROMB DEEP ASSOCIATES VES PROX LOWR EXTREM 65963 OBSTRUCTIVE 03-08-2012 [facility] CHRONIC PULMONARY & BRONCHITIS CRITICAL WITHOUT EXACERBAT 82843 CHRONIC 03-08-2012 [facility] RESPIRATORY [facility] FAILURE HOSP 28345 HYPOXEMIA 03-08-2012 [facility] PULMONARY & CRITICAL V462 DEPENDENCE 03-08-2012 [facility] ON MACHINE [facility] FOR HOSP SUPPLEMENTA L OXYGEN V8541 BODY MASS 03-08-2012 [facility] INDEX [facility] 40.0-44.9 [facility]P ADULT 486 PNEUMONIA, 03-02-2012 [facility] UNSPECIFIED SERVICES 5183 PULMONARY 03-02-2012 [place] EOSINOPHILI [facility]ICAL A IMAGING ASS 56603 OTHER 03-02-2012 [place] DISEASES OF MEDICAL LUNG NOT IMAGING ASS ELSEWHERE CLASSIFIED 7969 OTHER 03-02-2012 LABORATORY NONSPECIFIC [place] OF ABNORMAL LINDA H FINDING 7238 OTHER 02-10-2012 [place] SYNDROMES AFFECTING CERVICAL REGION 4619 ACUTE 02-09-2012 [facility] SINUSITIS, EMERGENCY UNSPECIFIED SERVICES 7804 DIZZINESS 01-29-2012 NEURODIAGNO AND STICPSC GIDDINESS 95076 OTHER 01-28-2012 [place] DISEASES OF MEDICAL NASAL IMAGING ASS CAVITY AND SINUSES 7842 SWELLING 01-28-2012 [place] MASS OR MEDICAL LUMP IN IMAGING ASS HEAD AND NECK 54422 ATRIAL 01-11-2012 [place] [place] 4519 PHLEBITIS&T 01-10-[address] [facility] UNSPECIFIED SITE 4536 VENOUS EMBO 01-10-2012 [place] [facility] VES LOWR EXTREM 31819 UNSPECIFIED 12-28-2011 [place] DIASTOLIC [facility] HE[facility]OS[facility] FAILURE 7850 UNSPECIFIED 12-28-2011 [facility] TACHYCARDIA SERVICES 3320 PARALYSIS 12-17-2011 [place] AGITANS 2724 OTHER AND 11-30-2011 [facility] UNSPECIFIED [facility] HYPERLIPIDE GONZÁLEZ 51414 DEHYDRATION 11-30-2011 [facility] 490 BRONCHITIS 11-30-2011 [facility] NOT [facility] SPECIFIED [facility] ACUTE OR CHRONIC V1089 PERSONAL 11-30-2011 [facility] HISTORY [facility] MALIGNANT [facility] NEOPLASM OTHER SITE V5866 LONG-TERM 11-30-2011 [facility] USE OF [facility] 462 ACUTE 11-29-2011 [facility] PHARYNGITIS 4871 INFLUENZA 11-29-2011 [facility] WITH OTHER RESPIRATORY MANIFESTATI ONS 53717 MUSCLE 11-29-2011 [facility] WEAKNESS [facility]ERGENCY (GENERALIZE SERVICES D) 4660 ACUTE 11-18-2011 [place] [place] BRONCHITIS 10357 ASTHMA, 11-08-2011 [facility] UNSPECIFIED EMERGENCY , SERVICES UNSPECIFIED STATUS V1559 PERSONAL 09-24-2011 [facility] OTHER HOSPITAL INJURY 83000 UNSPECIFIED 09-19-2011 [facility] RETENTION OF URINE 3384 CHRONIC 07-29-2011 [facility] SYNDROME MEDICIINE PSC 3538 OTHER NERVE 07-29-2011 [facility] ROOT AND PAIN PLEXUS MEDICIINE DISORDERS PSC 7210 CERVICAL 07-29-2011 [facility] SPONDYLOSIS PAIN WITHOUT MEDICIINE MYELOPATHY PSC 7232 CERVICOCRAN 07-29-2011 [facility] IAL PAIN SYNDROME MEDICIINE PSC 2449 UNSPECIFIED 07-26-2011 [facility] HYPOTHYROID [facility] ISM 5990 URINARY 07-26-2011 [place] TRACT [facility] INFECTION HOSPITAL SITE NOT SPECIFIED 7241 PAIN IN 07-26-2011 [facility] [place] THORACIC RADIOLOGY SPINE 86933 OTHER CHEST 07-26-2011 [facility] 7810 ABNORMAL 07-20-2011 [facility] INVOLUNTARY MOVEMENTS 7213 LUMBOSACRAL 04-28-2011 [facility] SPONDYLOSIS MEDICIINE WITHOUT PSC MYELOPATHY 7220 DISPLCMT 04-28-2011 [facility] CERV PAIN INTERVERT MEDICIINE DISC PSC WITHOUT MYELOPATHY 7246 DISORDERS 04-28-2011 [facility] OF SACRUM PAIN MEDICIINE PSC 44521 ABDOMINAL 03-16-2011 NEURODIAGNO PAIN, STICPS GENERALIZED V7644 SPECIAL 03-04-2011 [facility] SCREENING [employer] HOLDING NEOPLASM OF PROSTATE 99158 ABDOMINAL 02-26-2011 [place] PAIN, UNSPECIFIED SITE 41242 ABDOMINAL 02-26-2011 [place] PA[place] RIGHT [facility] UPPER HOSPITAL QUADRANT 45936 ABDOMINAL 02-26-2011 [facility] [facility], [facility] PERIUMBILIC [facility] 8628 INJR MX&UNS 02-26-2011 [place] INTRATHR [facility] ORGN W/O HOSPITAL OPN WND IN CAV 9269 CRUSHING 02-26-2011 [place] INJURY OF [facility] UNSPECIFIED HOSPITAL SITE OF TRUNK 6029 UNSPECIFIED 02-18-2011 [place] DISORDER OF PROSTATE 1560 MALIGNANT 02-17-2011 [place] NEOPLASM OF [facility] HOSPITAL GALLBLADDER 1980 SECONDARY 02-17-2011 [place] MALIGNANT [facility] NEOPLASM OF [facility] KIDNEY 7862 COUGH 02-17-2011 [facility] Allergies, Adverse Reactions, Alerts Type Allergy [...] plasma 23:20 troponi n i.cardi ac measu Activated partial thromboplastin time (a (07-01-2017 21:10) Activat = 36.1 23.6-34 complet ed 017 SECONDS .0 ed partial 21:10 thrombo plastin time (a Comprehensive metabolic panel (07-01-2017 21:10) Serum = 1.0 1.1-1.8 complet or 017 ed plasma 21:10 albumin /globul in mass ra Protein = 6.1 6.4-8.2 complet total 017 gm/dL ed ser/joe 21:10 s ALT = 23 12-78 complet (SGPT) 017 U/L ed ser/joe 21:10 s Serum = 13 15-37 complet or 017 U/L ed plasma 21:10 asparta te aminotr ansfera Serum = 139 136-145 complet sodium 017 mmoL/L ed measure 21:10 ment Serum = 4.4 3.5-5.1 complet potassi 017 mmoL/L ed um 21:10 measure ment Serum = 135 74-106 complet or 017 mg/dL ed plasma 21:10 glucose measure ment (mas Serum = 3.1 1.3-3.2 complet globuli 017 gm/dL ed n 21:10 measure ment (mass/v olume) Estimat = 28 >60 complet ed 017 ML/MIN ed glomeru 21:10 lar filtrat ion rate (GF Estimat = 62 50-200 complet ion of 017 ML/MIN ed creatin 21:10 ine renal clearan ce Serum = 2.4 0.70-1. complet or 017 mg/dL 30 ed plasma 21:10 creatin ine measure ment ( Carbon = 28 21.0-32 complet dioxide 017 mmoL/L .0 ed 21:10 measure ment Serum = 103 98-107 complet or 017 mmoL/L ed plasma 21:10 chlorid e measure ment (mo Serum = 7.7 8.5-10. complet or 017 mg/dL 1 ed plasma 21:10 calcium measure ment (mas Serum = 22 7-18 complet or 017 mg/dL ed plasma 21:10 urea nitroge n measure men Serum = 0.4 0.2-1.0 complet or 017 mg/dL ed plasma 21:10 total bilirub in measure m Serum = 36 46-116 complet or 017 U/L ed plasma 21:10 alkalin e phospha tase sonam Serum = 3.0 3.4-5.0 complet or 017 gm/dL ed plasma 21:10 albumin measure ment ([facility] Whole blood INR measurement (07-01-2017 21:10) Prothro = 35.8 9.4-11. complet mbin 017 SECONDS 8 ed time 21:10 (PT) in platele t poor p Whole = 3.27 0.9-1.1 complet blood 017 ed INR 21:10 measure ment CBC w auto diff (07-01-2017 21:10) Baso % = 0.6 % 0.1-2.0 complet 017 ed 21:10 Blood = 7.1 4.8-10. complet leukocy 017 K/MM3 8 ed constantino 21:10 count (number /volume ) Automat = 13.3 11.5-17 complet ed 017 % .5 ed erythro 21:10 cyte distrib ution width Red = 4.63 4.6-6.2 complet blood 017 M/mm3 ed cell 21:10 count Blood = 122 142-424 complet platele 017 K/mm3 ed t count 21:10 Automat = 8.6 7.4-10. complet ed 017 fl 4 ed blood 21:10 platele t mean volume sonam Tillman % = 6.9 % 1.7-9.3 complet 017 ed 21:10 Absolut = 0.5 0.1-1.0 complet e 017 K/mm3 ed monocyt 21:10 e count Automat = 90.9 82.2-97 complet ed 017 fl .8 ed erythro 21:10 cyte mean corpusc ular v Automat = 34.6 31.8-35 complet ed 017 g/dl .4 ed erythro 21:10 cyte mean corpusc ular h Mean = 31.4 27-31.2 complet corpusc 017 pg ed ular 21:10 hemoglo bin (MCH) determ Lymphoc = 20.8 10-50 complet yte 017 % ed count, 21:10 blood, automat ed Absolut = 1.5 0.7-4.5 complet e 017 K/mm3 ed lymphoc 21:10 yte count Blood = 14.5 14.1-18 complet hemoglo 017 g/dL .0 ed bin 21:10 measure ment (mass/v olum Blood = 42.1 42.0-52 complet hematoc 017 % .0 ed rit 21:10 (volume fractio n) Granulo = 69.2 37.0-80 complet cyte 017 % .0 ed percent 21:10 age Blood = 4.9 1.3-8.0 complet granulo 017 K/mm3 ed cytes 21:10 automat ed count (numb Automat = 2.5 % 0.1-12. complet ed 017 0 ed blood 21:10 eosinop hils/10 0 leukocy t Automat = 0.2 0.0-0.4 complet ed 017 K/mm3 ed blood 21:10 eosinop hil count Automat = 0.0 0-0.2 complet ed 017 K/MM3 ed blood 21:10 basophi l count (count/ vo Cardiac enzymes (07-01-2017 21:10) Serum < 0.02 0.00-0. complet or 017 ng/mL 06 ed plasma 21:10 troponi n i.cardi ac measu Serum = 165 39-308 complet or 017 U/L ed plasma 21:10 creatin e kinase measure m Serum = 1.4 0.0-3.6 complet or 017 ng/mL ed plasma 21:10 creatin e kinase MB measu Serum = 0.8 0-4.0 complet or 017 U/L ed plasma 21:10 creatin e kinase MB (CK-M STREP SCREEN (RAPID) (10-12-2013 21:30) STREP NEGATIV [...] ed ULAR 19:45 HGB CONC RDW RBC 15.8 % 11.5-17 complet Auto 014 .5 [...] Fr 014 ed Bld 19:45 Auto Eosinop 17-2 3.6 % 0.1-12. complet hil Fr 014 0 ed Bld 19:45 Auto Basophi 17-2 0.9 % 0.1-2.0 complet ls Fr 014 ed Bld 19:45 Auto Granulo 17-2 5.1 1.3-8.0 complet cytes # 014 K/mm3 ed Bld 19:45 Auto Lymphoc 17-2 1.4 0.7-4.5 complet ytes Fr 014 K/mm3 ed Bld 19:45 Auto Monocyt 17-2 0.3 0.1-1.0 complet es # 014 K/mm3 ed Bld 19:45 Auto Eosinop 17-2 0.3 0.0-0.4 complet hil # 014 K/mm3 ed Bld 19:45 Auto Basophi 17-2 0.1 0-0.2 complet ls # 014 K/MM3 ed Bld 19:45 Auto PROTIME/INR (01-31-2013 00:01) PROTHRO 01-31-2 14.2 9.8-11. complet MBIN 013 SECONDS 0 ed TIME 00:01 INR Bld 1.37 0.9-1.1 complet 013 UNK ed 00:01 D Dimer PPP (01-30-2013 23:58) D Dimer 01-30- 176 0-400 complet PPP 013 ng/mL ed 23:58 URINALYSIS/COMPLETE (01-30-2013 23:23) URINE 01-30-2 YELLOW YELLOW complet COLOR 013 ed 23:23 URINE 01-30-2 CLEAR CLEAR complet APPEARA 013 ed NCE 23:23 URINE 01-30-2 NEGATIV NEG complet GLUCOSE 013 E ed - 23:23 DIPSTIC K URINE 01-30-2 NEGATIV NEG complet BILIRUB 013 E ed IN - 23:23 DIPSTIC K URINE 01-30-2 NEGATIV NEG complet KETONE 013 E mg/dL ed 23:23 URINE 01-30-2 1.020 1.005-1 complet SPECIFI 013 UNK .030 ed C 23:23 GRAVITY URINE 01-30-2 TRACE-L NEG complet BLOOD 013 YSED ed 23:23 URINE 01-30-2 8.0 UNK 5.0-8.5 complet PH 013 ed 23:23 URINE 2 2+ NEG complet PROTEIN 013 mg/dL ed - 23:23 DIPSTIC K URINE 01-30-2 1.0 NEG complet UROBILI 013 E.U./dL ed NOGEN - 23:23 DIPSTIC K URINE 01-30-2 NEGATIV NEG complet NITRATE 013 E ed - 23:23 DIPSTIC K URINE 01-30-2 NEGATIV NEG complet LEUK 013 E ed ESTERAS 23:23 E URINE 01-30-2 3-5 0 complet RBC 013 rbc/hpf ed 23:23 URINE 01-30-2 3-5 O complet WBC 013 wbc/hpf ed 23:23 URINE 2 OCC OCC complet SQUAMOU 013 #/hpf ed S CELLS 23:23 URINE OCC O complet BACTERI 013 ed A 23:23 CBC with AUTO DIFF (01-30-2013 23:02) WBC # -07-2 5.4 4.8-10. complet Bld 013 K/MM3 8 ed Auto 23:02 RBC # 07-2 4.91 4.6-6.2 complet Bld 013 M/mm3 ed Auto 23:02 Hgb 01-30- 15.2 14.1-18 complet Bld-mCn 013 g/dL .0 ed c 23:02 Hct Fr 43.9 % 42.0-52 complet Bld 013 .0 ed 23:02 MCV RBC 01-30- 89.3 fl 82.2-97 complet 013 .8 ed 23:02 MCH RBC 01-30-2 30.9 pg 27-31.2 complet Qn 013 ed Auto 23:02 MEAN 34.6 31.8-35 complet CORPUSC 013 g/dl .4 ed ULAR 23:02 HGB CONC RDW RBC 07-2 15.1 % 11.5-17 complet Auto 013 .5 ed 23:02 Platele 01-30-2 136 142-424 complet t Bld 013 K/mm3 ed Ql 23:02 Manual MEAN 01-30-2 8.9 fl 7.4-10. complet PLATELE 013 4 ed T 23:02 VOLUME Granulo 01-30- 67.6 % 37.0-80 complet cytes 013 .0 ed Fr Bld 23:02 Auto LYMPH % 05-07-2 22.6 % 10-50 complet 013 ed 23:02 Monocyt -07-2 6.5 % 1.7-9.3 complet es Fr 013 ed Bld 23:02 Auto Eosinop 05-07-2 2.7 % 0.1-12. complet hil Fr 013 0 ed Bld 23:02 Auto Basophi 05-07-2 0.6 % 0.1-2.0 complet ls Fr 013 ed Bld 23:02 Auto Granulo -07-2 3.6 1.3-8.0 complet cytes # 013 K/mm3 ed Bld 23:02 Auto Lymphoc -07-2 1.2 0.7-4.5 complet ytes Fr 013 K/mm3 ed Bld 23:02 Auto Monocyt -07-2 0.4 0.1-1.0 complet es # 013 K/mm3 ed Bld 23:02 Auto Eosinop -07-2 0.2 0.0-0.4 complet hil # 013 K/mm3 ed Bld 23:02 Auto Basophi 05-07-2 0.0 0-0.2 complet ls # 013 K/MM3 ed Bld 23:02 Auto COMPREHENSIVE METABOLIC PANEL (01-30-2013 22:57) Glucose 108 74-106 complet 013 mg/dL ed Bld-mCn 22:57 c BUN 19 7-18 complet Bld-mCn 013 mg/dL ed c 22:57 Creat 1.4 0.8-1.3 complet SerPl-m 013 mg/dL ed Cnc 22:57 ESTIMAT 113 50-200 complet ED 013 ML/MIN ed CREATIN 22:57 INE CLEARAN CE GFR 52 Greater complet (ESTIMA 013 ML/MIN than ed CORTNEY) 22:57 60 Sodium 140 136-145 complet SerPl-s 013 mmoL/L ed Cnc 22:57 Potassi 4.3 3.5-5.1 complet um 013 mmoL/L ed SerPl-s 22:57 Cnc Chlorid 105 98-107 complet e 013 mmoL/L ed SerPl-s 22:57 Cnc CO2 32 21.0-32 complet SerPl-s 013 mmoL/L .0 ed Cnc 22:57 Calcium 07-2 8.2 8.5-10. complet 013 mg/dL 1 ed SerPl-m 22:57 Cnc Prot 01-30-2 7.0 6.4-8.2 complet SerPl-m 013 gm/dL ed Cnc 22:57 Albumin 01-30-2 3.5 3.4-5.0 complet 013 gm/dL ed SerPl-m [...] Cnc 22:57 BNP Bld-mCnc (01-30-2013 22:57) BNP 01-30- 12 0-100 complet Bld-mCn 013 pg/mL ed [...] Bld 013 M/mm3 ed Auto 23:06 Hgb 01-12-2 16.1 14.1-18 complet Bld-mCn 013 g/dL .0 ed c 23:06 Hct Fr 48.9 % 42.0-52 complet Bld 013 .0 ed 23:06 MCV RBC 2 91.5 fl 82.2-97 complet 013 .8 ed 23:06 MCH RBC 30.2 pg 27-31.2 complet Qn 013 ed Auto 23:06 MEAN 33.1 31.8-35 complet CORPUSC 013 g/dl .4 ed ULAR 23:06 HGB CONC RDW RBC 15.5 % 11.5-17 complet Auto 013 .5 ed 23:06 Platele 131 142-424 complet t Bld 013 K/mm3 ed Ql 23:06 Manual MEAN 9.1 fl 7.4-10. complet PLATELE 013 4 ed T 23:06 VOLUME Granulo 01-12-2 75.2 % 37.0-80 complet cytes 013 .0 ed Fr Bld 23:06 Auto LYMPH % 01-12-2 17.1 % 10-50 complet 013 ed 23:06 Monocyt 01-12-2 4.9 % 1.7-9.3 complet es Fr 013 ed Bld 23:06 Auto Eosinop 01-12-2 2.4 % 0.1-12. complet hil Fr 013 0 ed Bld 23:06 Auto Basophi 19-2 0.5 % 0.1-2.0 complet ls Fr 013 [...] 013 K/mm3 ed Bld 23:06 Auto Basophi 19-2 0.0 0-0.2 complet ls # 013 K/MM3 ed Bld 23:06 Auto URINALYSIS/COMPLETE (01-12-2013 21:35) URINE -19-2 YELLOW YELLOW complet COLOR 013 ed 21:35 URINE -19-2 CLEAR CLEAR complet APPEARA 013 ed NCE 21:35 URINE 04-19-2 NEGATIV NEG complet GLUCOSE 013 E ed - 21:35 DIPSTIC K URINE 04-19-2 NEGATIV NEG complet BILIRUB 013 E ed IN - 21:35 DIPSTIC K URINE 04-19-2 NEGATIV NEG complet KETONE 013 E mg/dL ed 21:35 URINE -19-2 1.025 1.005-1 complet SPECIFI 013 UNK .030 ed C 21:35 GRAVITY URINE -19-2 2+ NEG complet BLOOD 013 ed 21:35 URINE 04-19-2 6.0 UNK 5.0-8.5 complet PH 013 ed 21:35 URINE -19-2 2+ NEG complet PROTEIN 013 mg/dL ed - 21:35 DIPSTIC K URINE 04-19-2 0.2 NEG complet UROBILI 013 E.U./dL ed NOGEN - 21:35 DIPSTIC K URINE -19-2 NEGATIV NEG complet NITRATE 013 E ed - 21:35 DIPSTIC K URINE 04-19-2 NEGATIV NEG complet LEUK 013 E ed ESTERAS 21:35 E URINE -19-2 10-20 0 complet RBC 013 rbc/hpf ed 21:35 URINE -19-2 OCC OCC complet SQUAMOU 013 #/hpf ed S CELLS 21:35 URINE -19-2 TRACE NONE complet MUCUS 013 ed 21:35 [...] SerPl-s 013 mmoL/L ed Cnc 19:25 Potassi 03-13-2 4.4 3.5-5.1 complet um 013 mmoL/L ed SerPl-s 19:25 Cnc Chlorid 12-06-2 104 98-107 complet e 013 mmoL/L ed SerPl-s 19:25 Cnc CO2 12-06-2 29 21.0-32 complet SerPl-s 013 mmoL/L .0 ed Cnc 19:25 Calcium 12-06-2 8.2 8.5-10. complet 013 mg/dL 1 ed SerPl-m 19:25 Cnc Prot 12-06-2 6.5 6.4-8.2 complet SerPl-m 013 gm/dL ed [...] K/MM3 8 ed Auto 19:25 RBC # 13-2 5.00 4.6-6.2 complet Bld 013 M/mm3 ed Auto 19:25 Hgb 12-06-2 15.2 14.1-18 complet Bld-mCn 013 g/dL .0 ed c 19:25 Hct Fr 12-06-2 44.0 % 42.0-52 complet Bld 013 .0 ed 19:25 MCV RBC --2 88.0 fl 82.2-97 complet 013 .8 ed 19:25 MCH RBC 12-06-2 30.4 pg 27-31.2 complet Qn 013 ed Auto 19:25 MEAN 12-06-2 34.5 31.8-35 complet CORPUSC 013 g/dl .4 ed ULAR 19:25 HGB CONC RDW RBC 12-06-2 15.9 % 11.5-17 complet Auto 013 .5 [...] Bld 19:25 Auto ESR Bld Qn 15M (0313-2013 19:25) ESR Bld 5 mm/hr 0-20 complet Qn 15M 013 ed 19:25 Procedures Procedure DOS Code Location Performer Comment MRI [address] [address] QUICK SPINAL [address] [facility] CERVICAL W/O CONTRAST MATRL O2 CONC 1 E1390 [facility] DEL PORT 7 85%/>02 CON[facility] AT [facility] FLW RATE PRTBLE E0431 [facility] GASEOUS 7 O2 SYS RENT; FLWMTR HUMIDFR&M ASK PRTBLE E0431 [facility] GASEOUS 7 O2 SYS RENT; FLWMTR HUMIDFR&M ASK O2 CONC 1 E1390 [facility] DEL PORT 7 85%/>02 CONC AT [facility] [place] [address] [place] TRUE ABDOMEN & 7 MEDICAL PELVIS SERV W/O FOUNDATIO CONTRAST N MATERIAL PROTHROMB 45091 [facility] IN TIME 7 [facility] [employer] [facility] DRUG TEST 90219 [facility] CHEMISTRY ANALYZERS PRTBLE E0431 [facility] GASEOUS 7 O2 SYS RENT; FLWMTR HUMIDFR&M ASK O2 CONC 1 E1390 [facility] DEL PORT 7 85%/>02 CONC AT [facility] [place] [address] [facility] [place] SCALF ABDOMEN & 7 RADIOLOGY PELVIS W/O CONTRAST MATERIAL URNLS DIP 50239 [facility] SILVA 7 [place] STICK/TAB CLINIC LET RGNT PSC AUTO W/O MICROSCOP Y CULTURE 05693 [facility] BACTERIAL 7 CLINIC CLINIC LABORATO LABORATO QUANTTATI VE COLONY COUNT URINE PRTBLE E0431 [facility] GASEOUS 7 O2 SYS RENT; FLWMTR HUMIDFR&M ASK O2 CONC 1 E1390 [facility] DEL PORT 7 85%/>02 CONC AT [facility] FLW RATE COLLECTIO 20355 YNES LEA N VENOUS 7 PHYSICIAN BLOOD PRACTICE VENIPUNCT L URE PROTHROMB 25091 [facility] IN TIME 7 [facility] HOLDINGS HOLDINGS DRUG TEST 13226 [facility] PRSMV 7 [facility] INSTRMNT HOLDINGS HOLDINGS CHEMISTRY ANALYZERS DRUG TST G0483 [facility] DEFINITV 7 [facility] ID HOLDINGS HOLDINGS METH P DAY 22/MORE DR [place] PROTHROMB 14440 [facility] IN TIME 7 [facility] HOLDINGS HOLDINGS INITIAL 52399 [facility] 7 MEDICINE CARE/DAY [place] [address] [place] [address] [facility] [place] SCALF HEAD/BRAI 7 RADIOLOGY N W/O CONTRAST MATERIAL RADIOLOGI 44376 [facility] SWINEY C 7 JEROD EXAMINATI EMERGENCY ON CHEST PHYS S[place] FRONTAL ECG 17074 [facility] SWINEY ROUTINE 7 JEROD ECG EMERGENCY W/LEAST PHYS 12 LDS I&R ONLY RADEX [address] SHOULDER 7 [facility] COMPLETE INC INC MINIMUM [address] V[address]EX [address] SPINE 7 [facility] CERVICAL INC INC 2 OR 3 VIEWS ECG 24770 [facility] VERDUGO ROUTINE 7 [facility] W/LEAST P 12 LDS I&R ONLY DUP-SCAN 51256 [place] XTR VEINS 7 MEDICAL IMAGING [place] ASS L/LIMITED STUDY PROTHROMB 14080 [facility] IN TIME 7 [facility] HOLDING PROTHROMB 26975 [facility] [place] IN TIME 7 [facility] HOLDINGS HOLDINGS COLLECTIO 90765 YNES Ma VENOUS 7 PHYSICIAN B[place] [address] [facility] THYROID 7 [facility] STIMULATI HOLDINGS [place] [address] [facility] THYROXINE 7 [facility] TOTAL HOLDINGS HOLDINGS URNLS DIP 83105 STEPH[facility]IE SILVA 7 [place] STICK/TAB CLINIC LET RGNT PSC AUTO [place] [address] LIPASE 7 [facility] INC INC URNLS DIP [address] 7 [facility] STICK/TAB INC INC LET REAGENT AUTO MICROSCOP Y PROTHROMB [address] IN TIME 7 [facility] INC INC BLOOD [address] COUNT 7 [facility] COMPLETE INC INC AUTO&[place] [address] [facility] [facility] ABDOMEN & 7 [facility] PELVIS INC INC W/O CONTRAST MATERIAL COMPREHEN [address] SIVE 7 [facility] METABOLIC INC INC PANEL CYSTOURET 53522 [facility] HROSCOPY 6 [facility] PSC PSC E-STIM G0283 [place] 1/> AREAS 6 [facility] WND CARE PART TX PLAN THERAPEUT 91715 [place] IC PX 1/> 6 [facility] EACH 15 MIN EXERCISES THERAPEUT 87309 [place] PX 1/> 6 [facility] EACH 15 MIN EXERCISES E-STIM G0283 [place] 1/> AREAS 6 [facility] WND CARE PART TX PLAN E-STIM G0283 [place] 1/> AREAS 6 [facility] WND CARE PART TX PLAN THERAPEUT 51527 [place] IC PX 1/> 6 [facility] EACH 15 MIN EXERCISES PHYSICAL 26467 [place] THERAPY 6 [facility] N E-STIM G0283 [place] 1/> AREAS 6 [facility] WND CARE PART TX PLAN BLOOD [address] COUNT 6 [facility] COMPLETE INC INC AUTO&[place] [address] THYROXINE 6 [facility] TOTAL INC INC THYROID [address] HORM 6 [facility] UPTK/THYR INC [place] [address] THYROID 6 [facility] STIMULATI INC INC NG HORMONE TSH COLLECTIO [address] N VENOUS 6 [facility] BLOOD INC INC VENIPUNCT URE COMPREHEN [address] SIVE 6 [facility] METABOLIC INC INC PANEL DRAINAGE [id number] [facility] OF NECK 6 [facility] SKIN INC INC EXTERNAL THROMBOPL 04920 [facility] ASTIN 6 N N TIME COMMUNTIY COMMUNTIY PARTIAL HOSPITA HOSPITA PLASMA/WH OLE BLOOD US SOFT 86306 [facility] TISSUE 6 N N HEAD & COMMUNTIY COMMUNTIY NECK REAL HOSPITA HOSPITA TIME IMGE DOCM COLLECTIO 23968 [facility] N VENOUS 6 N N BLOOD COMMUNTIY COMMUNTIY VENIPUNCT HOSPITA HOSPITA URE PROTHROMB 26187 [facility] IN TIME 6 N N COMMUNTIY COMMUNTIY HOSPITA HOSPITA BLOOD 80229 [facility] COUNT 6 N N COMPLETE COMMUNTIY COMMUNTIY AUTO&AUT[place] [address] [facility] MAXILLOFA 6 N N CIAL W/O COMMUNTIY COMMUNTIY CONTRAST HOSPITA HOSPITA MATERIAL CV STRS 61504 [facility] TST [address] [place] [address] XERS&/OR RX CONT ECG TRCG ONLY INJECTION [id number] [address] [place] 0.1 MG TECHNETIU A9502 [facility] TC-99M [address] [place] [address] TETROFOSM IN DX PER STUDY DOSE MYOCARDIA 14336 [facility] L SPECT [address] [place] [address] MULTIPLE STUDIES US SOFT 95141 NEURODIAG [place] TISSUE 6 NOSTICS HEAD & INC NECK REAL TIME IMGE DOCM MRI ORBIT 10788 NEURODIAG [place] FACE & 6 NOSTICS NECK W/O INC & W/[place] [address] [facility] ABDOMEN & 6 REGIONAL LD IV ALL PELVIS IMAGING W/O L CONTRST 1/> BODY RE XENON A9558 [facility] MOSQUE XE-133 6 HEALTH HEALTH [facility] DIAGNOSTI C PER 10 MILLICURI ES TECHNETIU A9540 [facility] MOSQUE M TC-99M 6 [facility] HEALTH MAA DX [facility] STDY DOSE UP TO 10 MCI PULMONARY 67633 MOSQUE MOSQUE 6 [facility] HEALTH VENTILATI [facility] ON & PERFUSION IMAGING RADIOLOGI 26687 MOSQUE MOSQUE C EXAM 6 [facility] CHEST 2 [facility] VIEWS FRONTAL&[place] [address] MOSQUE MOSQUE TRACT 6 [facility] HEALTH UPPER [facility] W/WO DELAYED IMAGES W/KUB NEBULIZER E0570 [facility] WITH 6 COMPRESSO R ECG 18081 PEPE NEVAREZ NEVAREZ PEPE ROUTINE 5 MD ECG CONSULTIN W/LEAST G SRV 12 LDS W/I&R ECHO 28512 PEPE NEVAREZ NEVAREZ PEPE TTHRC R-T 5 2D CONSULTIN W/WOM-MOD G SRV E COMPL SPEC&COLR D RADIOLOGI [address] C EXAM [facility] CHEST 2 INC INC VIEWS FRONTAL&L ATERAL BLOOD [address] COUNT 5 [facility] COMPLETE INC INC AUTO&AUTO DIFRNTL WBC ECG [address] ROUTINE 5 [facility] ECG INC INC W/LEAST 12 LDS TRCG ONLY W/O I&[place] [address] TROPONIN 5 [facility] QUANTITAT INC INC JOANIE NATRIURET [address] IC 5 [facility] PEPTIDE INC INC PROTHROMB [address] IN TIME 5 [facility] INC INC CREATINE [address] KINASE MB 5 [facility] FRACTION INC INC ONLY CREATINE [address] KINASE 5 [facility] TOTAL INC INC RADIOLOGI 25885 [facility] Daniel 5 [facility] EXAMINATI INC INC ON CHEST [place] FRONTAL COMPREHEN 92111 [facility] GARCIAE 5 [facility] METABOLIC INC INC [facility] [address]305 [facility] 5 JEROD CELINA IGN DAY PHYSICIAN MANAGEMEN SERVI T > 30 MIN SBSQ [id number] [facility] 5 JEROD CELINA IGN CARE/DAY PHYSICIAN 25 SERVI MINUTES SBSQ 69006 [facility] 5 JEROD CELINA IGN CARE/DAY PHYSICIAN 25 SERVI MINUTES INITIAL 03033 [facility] 5 JEROD A GOP CARE/DAY PHYSICIAN 70 SERVI MINUTES ECG 09648 [facility] 5 JEROD A GOP ECG PHYSICIAN W/LEAST SERVI 12 LDS I&R ONLY CYSTOURET 79219 STEPHANIE SILVA HROSCOPY 5 [facility] PSC PHYSICAL [address] THERAPY 5 [facility] EVALUATIO INC INC N APPL [address] MODALITY 5 [facility] 1/> AREAS INC INC ELEC STIMJ UNATTENDE D APPLICATI [address] [facility] [address] ON 5 [facility] MODALITY INC INC 1/> AREAS HOT/COLD PACKS APPL [address] MODALITY 5 [facility] 1/> AREAS INC INC ULTRASOUN D EA 15 MIN URNLS DIP 60146 STEPHANIE SILVA 5 [facility] STICK/TAB CLINIC LET RGNT PSC AUTO W/O MICROSCOP Y THERAPEUT [address] IC PX 1/> 5 [facility] AREAS INC INC EACH 15 MIN EXERCISES APPL [address] MODALITY 5 [facility] 1/> AREAS INC INC ULTRASOUN D EA 15 MIN [address]PLICATI [address] ON 5 [facility] MODALITY INC INC 1/> AREAS HOT/COLD PACKS APPL [address] MODALITY 5 [facility] 1/> AREAS INC INC ELEC STIMJ UNATTENDE D APPL [address] MODALITY 5 [facility] 1/> AREAS INC INC ELEC STIMJ UNATTENDE D APPLICATI [address] ON 5 [facility] MODALITY INC INC 1/> AREAS HOT/COLD PACKS APPL [address] MODALITY 5 [facility] 1/> AREAS INC INC ULTRASOUN D EA 15 MIN THERAPEUT [address] IC PX 1/> 5 [facility] AREAS INC INC EACH 15 MIN EXERCISES THERAPEUT [address] IC PX 1/> 5 [facility] AREAS INC INC EACH 15 MIN EXERCISES ORTHOTIC 61958 [facility]ANA MGMT&IKE 5 [facility] [place] UXTR INC INC LXTR&/TRN K EA [address] ON 5 [facility] MODALITY INC INC 1/> AREAS HOT/COLD PACKS APPL 36378 [facility] MODALITY 5 [facility] 1/> AREAS INC INC ELEC STIMJ UNATTENDE D LUMB L0627 [facility]THOSIS 5 TECHNOLOG TECHNOLOG SAGIT IES INC IES INC CNTRL RIGID A&P PANEL PREFAB APPL 61160 [facility] MODALITY 5 [facility] 1/> AREAS INC INC ELEC STIMJ UNATTENDE D APPL 72955 [facility] MODALITY 5 [facility] 1/> AREAS INC INC ULTRASOUN D EA 15 MIN THERAPEUT 83479 ARIANA ARIANA IC PX 1/> 5 [facility] AREAS INC INC EACH 15 MIN EXERCISES THERAPEUT 45440 ARIANA ARIANA IC PX 1/> 5 [facility] AREAS INC INC EACH 15 MIN EXERCISES APPL [address] MODALITY 5 [facility] 1/> AREAS INC INC ULTRASOUN D EA 15 MIN APPL [address] MODALITY 5 [facility] 1/> AREAS INC INC ELEC STIMJ UNATTENDE D APPL [address] MODALITY 5 [facility] 1/> AREAS INC INC ELEC STIMJ UNATTENDE D APPLICATI [address] ON 5 [facility] MODALITY INC INC 1/> AREAS HOT/COLD PACKS APPL [address] MODALITY 5 [facility] 1/> AREAS INC INC ULTRASOUN D EA 15 MIN THERAPEUT [address] IC PX 1/> 5 [facility] AREAS INC INC EACH 15 MIN EXERCISES THERAPEUT [address] IC PX 1/> 5 [facility] AREAS INC INC EACH 15 MIN EXERCISES APPL [address] MODALITY 5 [facility] 1/> AREAS INC INC ULTRASOUN D EA [address]I [address] [facility] MODALITY INC INC 1/> AREAS HOT/COLD PACKS APPL [address] [facility]ALITY [facility]/> AREAS INC INC ELEC STIMJ UNATTENDE D APPL [address] MODALITY 5 [facility] 1/> AREAS INC INC ELEC STIMJ UNATTENDE D APPL [address] MODALITY 5 [facility] 1/> AREAS INC INC ULTRASOUN D EA 15 MIN [address]UT [address] IC PX 1/> 5 [facility] AREAS INC INC EACH 15 MIN EXERCISES THERAPEUT [address] IC PX 1/> 5 [facility] AREAS INC INC EACH 15 MIN EXERCISES APPL [address] MODALITY 5 [facility] 1/> AREAS INC INC ULTRASOUN D EA 15 MIN APPL [address] MODALITY [facility] 1/> AREAS INC INC ELEC STIMJ UNATTENDE D APPL [address] MODALITY 5 [facility] 1/> AREAS INC INC ELEC STIMJ UNATTENDE D APPL [address] MODALITY 5 [facility] 1/> AREAS INC INC ULTRASOUN D EA 15 MIN THERAPEUT [address] [facility] PX 1/> 5 [facility] AREAS INC INC EACH 15 MIN EXERCISES THERAPEUT [address] [facility] PX 1/> 5 [facility] AREAS INC INC EACH 15 MIN EXERCISES APPL [address] MODALITY 5 [facility] 1/> AREAS INC INC ULTRASOUN D EA 15 MIN APPL [address] MODALITY 5 [facility] 1/> AREAS INC INC ELEC STIMJ UNATTENDE D APPLICATI [address] ON [facility] MODALITY INC INC 1/> AREAS HOT/COLD PACKS APPL [address] MODALITY 5 [facility] 1/> AREAS INC INC ELEC STIMJ UNATTENDE D APPL [address] MODALITY [facility] 1/> AREAS INC INC ULTRASOUN D EA 15 MIN THERAPEUT [address] [facility] PX 1/> 5 [facility] AREAS INC INC EACH 15 MIN EXERCISES THERAPEUT [address] [facility] PX 1/> 5 [facility] AREAS INC INC EACH 15 MIN EXERCISES APPL [address] MODALITY 5 [facility] 1/> AREAS INC INC ULTRASOUN D EA 15 MIN APPL [address] MODALITY [facility] 1/> AREAS INC INC ELEC STIMJ UNATTENDE D MRI 91227 NEURODIAG [place] SPINAL 5 [facility] [place] CANAL INC CERVICAL W/O CONTRAST MATRL THERAPEUT [address] IC PX 1/> 5 [facility] AREAS INC INC EACH 15 MIN EXERCISES APPL [address] MODALITY 5 [facility] 1/> AREAS INC INC ELEC STIMJ UNATTENDE D APPL [address] MODALITY 5 [facility] 1/> AREAS INC INC ULTRASOUN D EA 15 MIN APPLICATI [address] ON [facility] MODALITY INC INC 1/> AREAS HOT/COLD PACKS APPL [address] MODALITY 5 [facility] 1/> AREAS INC INC ULTRASOUN D EA 15 MIN APPL [address] MODALITY 5 [facility] 1/> AREAS INC INC ELEC STIMJ UNATTENDE D THERAPEUT [address] IC PX 1/> 5 [facility] AREAS INC INC EACH 15 MIN EXERCISES THERAPEUT [address] IC PX 1/> 5 [facility] AREAS INC INC EACH 15 MIN EXERCISES APPL [address] MODALITY 5 [facility] 1/> AREAS INC INC ULTRASOUN D EA 15 MIN MANUAL [address] THERAPY 5 [facility] TQS 1/> INC INC REGIONS EACH 15 MINUTES MANUAL [address] THERAPY 5 [facility] TQS 1/> INC INC REGIONS EACH 15 MIN[address]ES APPL [address] MODALITY 5 [facility] 1/> AREAS INC INC ULTRASOUN D EA 15 MIN APPLICATI [address] ON [facility] MODALITY INC INC 1/> AREAS HOT/COLD PACKS APPL [address] MODALITY 5 [facility] 1/> AREAS INC INC ELEC STIMJ UNATTENDE D THERAPEUT [address] IC PX 1/> 5 [facility] AREAS INC INC EACH 15 MIN EXERCISES THERAPEUT [address] [facility] PX 1/> 5 [facility] AREAS INC INC EACH 15 MIN EXERCISES APPL [address] MODALITY 5 [facility] 1/> AREAS INC INC ELEC STIMJ UNATTENDE D APPLICATI [address] ON 5 [facility] MODALITY INC INC 1/> AREAS HOT/COLD PACKS APPL [address] MODALITY 5 [facility] 1/> AREAS INC INC ULTRASOUN D EA 15 MIN APPL [address] MODALITY 5 [facility] 1/> AREAS INC INC ELEC STIMJ UNATTENDE D PHYSICAL [address] THERAPY 5 [facility] EVALUATIO INC INC N THERAPEUT [address] [facility] PX 1/> 5 [facility] AREAS INC INC EACH 15 MIN EXERCISES CYSTOURET 45563 STE[facility] S[facility]VA HROSCOPY 5 [facility] PSC URNLS DIP 88861 STEPHANIE SILVA 5 [facility] STICK/TAB CLINIC LET RGNT PSC AUTO W/[place] [address] STEPHANIE SILVA PROSTATE 5 [facility] SPECIFIC CLINIC ANTIGEN PSC TOTAL COLLECTIO 20358 STEPHANIE SILVA N VENOUS 5 [facility] BLOOD [facility]INIC VENIPUNCT PSC URE CYTP 30392 STEPHANIE ERNST FRANDY SLCTV 5 [facility] CELL [facility] ENHANCEME PSC NT INTERPJ XCPT C/V SMR PRIM 56988 [facility] SRC 5 CLINIC CLINIC GRAM/GIEM LABORATO LABORATO SA STAIN BCT FUNGI/LEODAN L CUL BACT 97965 [facility] XCPT 5 CLINIC CLINIC URINE LABORATO LABORATO BLOOD/STO OL AEROBIC ISOL COLLECTIO 65342 COMBINED COMBINED N VENOUS 2 PHYSICIAN PHYSICIAN BLOOD S LA S LA VENIPUNCT URE PROTHROMB 99480 COMBINED COMBINED IN TIME 2 PHYSICIAN PHYSICIAN S LA S LA CONTINUOU E0601 ABDON COPPOLA S 2 HOME HOME POSITIVE MEDICAL MEDICAL AIRWAY EQUIPME EQUIPME PRESSURE DEVICE NONCOVERE A9270 [facility]AL CENTRAL D ITEM OR 2 [facility] COMPREHEN 88503 [facility]TRAL SIVE 2 [facility] METABOLIC [facility] HOSP PANEL PROTHROMB 51417 CENTRAL CENTRAL IN TIME 2 [facility] HOSP URNLS DIP 79998 CEN[facility]AL CENTRAL 2 [facility] STICK/TAB HOSP HOSP LET REAGENT AUTO MICROSCOP Y COLLECTIO 49588 CENTRAL CENTRAL N VENOUS 2 [facility] BLOOD [facility]P HOSP VENIPUNCT URE BLOOD 78921 [facility]AL CENTRAL COUNT 2 [facility] COMPLETE [facility] HOSP AUTO&[place] [address] CENTRAL CENTRAL ABDOMEN & 2 [facility] PELVIS [facility] HOSP W/O CONTRAST MATERIAL O2 CONC 1 E1390 ABDON COPPOLA DEL PORT 2 HOME HOME 85%/>02 MEDICAL MEDICAL CONC AT EQUIPME EQUIPME PRSC FLW RATE PRTBLE E0431 ABDON COPPOLA GASEOUS 2 HOME HOME O2 SYS MEDICAL MEDICAL RENT; EQUIPME EQUIPME FLWMTR HUMIDFR&M ASK HEMOGLOBI 94469 [facility] N 2 GLYCOSYLA CORTNEY A1C ADMN SET A7003 YOUR YOUR SM VOL 2 PHARMACY PHARMACY NONFILTR PNEUMAT NEBULIZR DISPBL URNLS DIP 11101 [facility] 2 [place] THO STICK/TAB CLINIC LET RGNT PSC [...] CONC AT EQUIPME EQUIPME PRSC FLW RATE THERAPEUT [address] IC 2 [facility] INJECTION INC INC IV PUSH EACH NEW DRUG THER [address] PROPH/DX 2 [facility] NJX IV INC INC PUSH SINGLE/1S T SBST/[place] [address] [facility] ABDOMEN & 2 MEDICAL STEFF PELVIS IMAGING W/O ASS CONTRAST MATERIAL BLOOD [address] COUNT 2 [facility] COMPLETE INC INC AUTO&[place] [address] AMYLASE 2 [place] [address] LIPASE 2 [facility] INC INC INJECTION J2405 [address] 2 [facility] ONDANSETR INC INC ON HCL PER 1 MG CUL BACT [address] STOOL 2 [facility] AEROBIC INC INC ISOL SALMONELL A&SHIGELL URNLS DIP [address] 2 [facility] STICK/TAB INC INC LET REAGENT AUTO MICROSCOP Y PROTHROMB [address] IN TIME 2 [facility] INC INC COMPREHEN [address] SIVE 2 [facility] [place] [address] ARIANA ARIANA CLOSTRIDI 2 [facility] UM INC INC DIFFICILE TOXIN 3D 19494 NIKA ARENAS RENDERING 2 MEDICAL STEFF IMAGING W/INTERP& ASS POSTPROC DIFF WORK STATION PROTHROMB 47065 COMBINED COMBINED IN TIME 2 PHYSICIAN PHYSICIAN S LA S LA POTASSIUM 49404 COMBINED COMBINED SERUM 2 PHYSICIAN PHYSICIAN PLASMA/WH S LA S LA OLE BLOOD COLLECTIO 71968 COMBINED COMBINED N VENOUS 2 PHYSICIAN PHYSICIAN BLOOD S LA S LA VENIPUNCT URE URNLS DIP 67716 [facility] 2 [facility] STICK/TAB CLINIC LET RGNT PSC AUTO W/O MICROSCOP Y PROTHROMB 81808 COMBINED COMBINED IN TIME 2 [place] [address] INFUSION 2 [facility] THERAPY/P INC INC ROPHYLAXI S /DX 1ST TO [address] IC 2 [facility] INJECTION INC INC IV PUSH EACH NEW DRUG BASIC 63907 COMBINED COMBINED METABOLIC 2 PHYSICIAN PHYSICIAN PANEL S LA S LA CALCIUM TOTAL COMPREHEN 82127 COMBINED COMBINED SIVE 2 PHYSICIAN PHYSICIAN METABOLIC S LA S LA PANEL BLOOD 36818 COMBINED COMBINED COUNT 2 PHYSICIAN PHYSICIAN COMPLETE S LA S LA AUTO&AUTO DIFRNTL WBC COLLECTIO 40977 COMBINED COMBINED N VENOUS 2 PHYSICIAN PHYSICIAN BLOOD S LA S LA VENIPUNCT URE NEG PRESS E2402 [facility] WOUND 2 THERAPEUT THERAPEUT THERAPY IC SER IC SER ELEC PUMP INC INC STATION/P RTBLE CANISTER A7000 KCI KCI DISPOSABL 2 THERAPEUT THERAPEUT E USED IC SER IC SER WITH INC INC SUCTION PUMP EACH WND CARE A6550 KCI KCI SET NEG 2 THERAPEUT THERAPEUT PRSS WND IC SER IC SER TX ELEC INC INC PUMP SPL ADMN SET A7003 YOUR YOUR SM VOL 2 PHARMACY PHARMACY NONFILTR PNEUMAT NEBULIZR [facility] 13681 [facility] 2 INPATIENT ALI DAY MEDICINE MANAGEMEN T > 30 MIN SBSQ 75237 [facility] 2 INPATIENT ALI CARE/DAY MEDICINE 25 MINUTES SBSQ 80818 [facility] 2 INPATIENT ALI CARE/DAY MEDICINE 35 MINUTES RADIOLOGI 80873 [facility] [place] IRVIN C 2 RADIOLOGY RAY EXAMINATI ON CHEST SINGLE VIEW FRONTAL INITIAL 25826 [facility] 2 INPATIENT ALI CARE/DAY MEDICINE 70 MINUTES TUBING A7037 ABDON COPPOLA USED WITH 2 HOME HOME POSITIVE MEDICAL MEDICAL AIRWAY EQUIPME EQUIPME PRESSURE DEVICE HEADGEAR A7035 ABDON COPPOLA USED 2 HOME HOME W/POSITIV MEDICAL MEDICAL E AIRWAY EQUIPME EQUIPME PRESSURE DEVICE FULL FACE A7030 ABDON COPPOLA MASK 2 HOME HOME USED MEDICAL MEDICAL W/POS EQUIPME EQUIPME ARWAY PRESS DEVICE EA FILTER A7038 ABDON COPPOLA DISPBL 2 HOME HOME USED MEDICAL MEDICAL W/POS EQUIPME EQUIPME ARWAY PRESSURE DEVICE FILTER A7039 ABDON COPPOLA NON 2 HOME HOME DISPBL MEDICAL MEDICAL USED EQUIPME EQUIPME W/POS ARWAY PRESS DEVICE CONTINUOU E0601 ABDON COPPOLA S 2 HOME HOME POSITIVE MEDICAL MEDICAL AIRWAY EQUIPME EQUIPME PRESSURE DEVICE HUMDIFIR E0562 ABDON COPPOLA HEATED 2 HOME HOME USED MEDICAL MEDICAL W/POS EQUIPME EQUIPME ARWAY PRESSURE DEVICE PRTBLE E0431 ABDON COPPOLA GASEOUS 2 HOME HOME O2 SYS MEDICAL MEDICAL RENT; EQUIPME EQUIPME FLWMTR HUMIDFR&M ASK O2 CONC 1 E1390 ABDON COPPOLA DEL PORT 2 HOME HOME 85%/>02 MEDICAL MEDICAL CONC AT EQUIPME EQUIPME PRSC FLW RATE SBSQ 40616 [facility] 2 Y THO CARE/DAY ASSOCIATE [address]ES [address] [facility] 2 SUZANNE GRA CARE/DAY EAST 25 PULMONARY MINUTES SBSQ 68506 [facility] 2 INPATIENT CARE/DAY MEDICINE [address] [facility] CARE/DAY EAST 35 PULMONARY MINUTES SBSQ [address]19 [facility] CARE/DAY EAST 35 PULMONARY MINUTES SBSQ 98312 [facility] 2 INPATIENT CARE/DAY MEDICINE 25 MINUTES CRITICAL 83868 [facility] 2 SUZANNE GRA ILL/INJUR EAST ED PULMONARY PATIENT INIT 30-74 MIN SBSQ 97560 [facility] 2 INPATIENT CARE/DAY MEDICINE 25 MINUTES RADIOLOGI 64187 [facility] ELLISE C 2 RADIOLOGY LD IV A EXAMINATI ON CHEST SINGLE VIEW FRONTAL RADIOLOGI 91960 [facility]LL[facility]LY [facility] C 2 RADIOLOGY LD IV A EXAMINATI ON CHEST SINGLE VIEW FRONTAL SBSQ 21041 [facility] CARE/DAY EAST 35 PULMONARY MINUTES SBSQ 92241 [facility] 2 INPATIENT CARE/DAY MEDICINE 25 MINUTES SBSQ 28378 [facility] 2 INPATIENT CARE/DAY MEDICINE 25 MINUTES CRITICAL 00553 [facility] 2 SUZANNE ANA ILL/INJUR EAST ED PULMONARY PATIENT INIT 30-74 MIN SBSQ 97622 [facility] 2 [facility]/DAY ASSOCIATE 35 S MINUTES RADIOLOGI 59035 [facility]TT SANDOVAL C 2 RADIOLOGY III KEITH EXAMINATI ON CHEST SINGLE VIEW FRONTAL ECG 46687 [facility] ROUTINE 2 [facility] ECG CLINIC W/LEAST PSC 12 LDS I&R ONLY RADIOLOGI 97766 [facility] RHETT SANDOVAL C 2 RADIOLOGY III KEITH EXAMINATI ON CHEST SINGLE VIEW FRONTAL CRITICAL 56700 [facility] 2 SUZANNE ANA ILL/INJUR EAST ED PULMONARY PATIENT INIT 30-74 MIN SBSQ 38239 [facility] 2 INPATIENT CARE/DAY MEDICINE 25 MINUTES SBSQ 59141 [facility] 2 INPATIENT ARU CARE/DAY MEDICINE 25 MINUTES CRITICAL 32855 [facility] CARE 2 SUZANNE ILL/INJUR EAST ED PULMONARY PATIENT INIT 30-74 MIN RADIOLOGI 71596 [facility] [place] RONALDO C 2 RADIOLOGY STEPHANY EXAMINATI ON CHEST SINGLE VIEW FRONTAL SBSQ 98749 NEPHROLOG [facility] 2 Y BOLA CARE/DAY ASSOCIATE 35 S MINUTES SBSQ 97882 [facility] 2 INPATIENT ARU CARE/DAY MEDICINE 35 MINUTES RADIOLOGI 70527 [facility] [place] CARNIA MAT C 2 RADIOLOGY EXAMINATI ON CHEST SINGLE VIEW FRONTAL INITIAL 33739 [facility] Y THO CARE/DAY ASSOCIATE 70 S MINUTES DAILY 51653 [facility] 2 A [facility] ASSOCIATE EDRL/PAULETTE S PSC CH CONT DRUG ADMN CRITICAL 92225 [facility] 2 SUZANNE SAWYER ILL/INJUR [facility] ED PULMONARY PATIENT INIT 30-74 MIN CENTRAL [address] CATHETER PLACEMENT WITH GUIDANCE ARTERIAL 3891 [facility] CATHETERI [address] [place] [address] ZATION CONT 9672 [facility] INVASIVE [address] [place] [address] MECH VENT 96 CONSECUTI VE HRS/MORE INSERTION 9604 [facility] OF [address] [place] [address] ENDOTRACH EAL TUBE INSJ 78495 [facility] NON-TUNNE 2 SUZANNE SAWYER LED [facility] CENTRAL PULMONARY VENOUS CATH AGE 4 YR/> ARTL 73148 [facility] CATHJ/CAN 2 SUZ[facility]NE [facility] [address] [facility] [place] IRVIN RETROPERI 2 RADIOLOGY RAY TONEAL REAL TIME W/IMAGE LIMITED ECG 98757 STEPHANIE SESAY FRANDY ROUTINE 2 [facility] ECG CLINIC W/LEAST PSC 12 LDS I&R ONLY ANES 83309 ANESTHESI CIFUENTES LAR XTRPRTL 2 A LOWER ABD ASSOCIATE UR TRACT S PSC RENAL DON NFRCT NJXS 17604 ANESTHESI VANCE INFUS/MAITE 2 A SCO US ASSOCIATE DX/SBST S PSC EDRL/[place] [address] NEW WILHELMUS SURG 2 [facility] PATHOLOGY CLINIC PSC GROSS&MIGUEL ROSCOPIC EXAM NEPHRECTO 51289 [facility] [place] THO PARTIAL CLINIC PSC PARTIAL 554 [facility] MY INITIAL 18524 [facility] 2 INPATIENT ARU CARE/DAY MEDICINE 70 MINUTES ECG 43302 [facility] 2 [place] MAT ECG CLINIC W/LEAST PSC 12 LDS I&R ONLY RADIOLOGI 46556 [facility] [place] CARINA MAT C EXAM 2 RADIOLOGY CHEST 2 VIEWS FRONTAL&L ATERAL O2 CONC 1 E1390 ABDON COPPOLA DEL PORT 2 HOME HOME 85%/>02 MEDICAL MEDICAL CONC AT EQUIPME EQUIPME PRSC FLW RATE PRTBLE E0431 ABDON COPPOLA GASEOUS 2 HOME HOME O2 SYS MEDICAL MEDICAL RENT; EQUIPME EQUIPME FLWMTR HUMIDFR&M ASK PROTHROMB 60088 COMBINED COMBINED IN TIME 2 PHYSICIAN PHYSICIAN S LA S LA COLLECTIO 25143 COMBINED COMBINED N VENOUS 2 PHYSICIAN PHYSICIAN BLOOD S LA S LA VENIPUNCT URE URNLS DIP 32432 PODIATRIC [facility] 2 FOOT & JR THO STICK/TAB ANKLE LET RGNT SPECI AUTO W/O MICROSCOP Y HEMOGLOBI 18758 [facility] N 2 GLYCOSYLA CORTNEY A1C PROTHROMB 51129 COMBINED COMBINED IN TIME 2 PHYSICIAN PHYSICIAN S LA S LA COLLECTIO 30334 COMBINED COMBINED N VENOUS 2 PHYSICIAN PHYSICIAN BLOOD S LA S LA VENIPUNCT URE COLLECTIO 62306 COMBINED COMBINED N VENOUS 2 PHYSICIAN PHYSICIAN BLOOD S LA S LA VENIPUNCT URE PROTHROMB 95656 COMBINED COMBINED IN TIME 2 PHYSICIAN PHYSICIAN S LA S LA URNLS DIP 35968 [facility] 2 [place] THO STICK/TAB CLINIC LET PSC REAGENT AUTO MICROSCOP Y PROTHROMB 16824 COMBINED COMBINED IN TIME 2 PHYSICIAN PHYSICIAN S LA S LA COLLECTIO 13172 COMBINED COMBINED N VENOUS 2 PHYSICIAN PHYSICIAN BLOOD S LA S LA VENIPUNCT URE COLLECTIO 01403 COMBINED COMBINED N VENOUS 2 PHYSICIAN PHYSICIAN BLOOD S LA S LA VENIPUNCT URE PROTHROMB 54300 COMBINED COMBINED IN TIME 2 PHYSICIAN PHYSICIAN S LA S LA PROTHROMB 57795 COMBINED COMBINED IN TIME 2 PHYSICIAN PHYSICIAN S LA S LA COLLECTIO 67773 COMBINED COMBINED N VENOUS 2 PHYSICIAN PHYSICIAN BLOOD S LA S LA VENIPUNCT URE COLLECTIO 19099 COMBINED COMBINED N VENOUS 2 PHYSICIAN PHYSICIAN BLOOD S LA S LA VENIPUNCT URE PROTHROMB 22180 COMBINED COMBINED IN TIME 2 PHYSICIAN PHYSICIAN S LA S LA PROTHROMB 20822 COMBINED COMBINED IN TIME 2 PHYSICIAN PHYSICIAN S LA S LA URNLS DIP [address]/[facility] LET REAGENT AUTO MICROSCOP Y CYSTOURET 59201 [facility] HROSCOPY 2 FOOT & THO ANKLE SPECI COLLECTIO 14675 COMBINED COMBINED N VENOUS 2 PHYSICIAN PHYSICIAN BLOOD S LA S LA VENIPUNCT URE CLOTTING 84324 [facility] INHIBIT[facility] 2 AMERIC AMERIC S [employer] C ACTIVITY CLOTTING 37788 [facility] 2 [employer] S FREE CT THORAX 83358 [facility] [place] 2 RADIOLOGY RHO W/[place] [address] [facility] [place] ABDOMEN & 2 RADIOLOGY RHO PELVIS W/O CONTRST 1/> BODY RE COLLECTIO 76787 COMBINED COMBINED N VENOUS 2 PHYSICIAN PHYSICIAN BLOOD S LA S LA VENIPUNCT URE PROTHROMB 73702 COMBINED COMBINED IN TIME 2 PHYSICIAN PHYSICIAN S LA S LA ECHO 03398 [facility] TTHRC R-T 2 IV HEN 2D CARDIOLOG W/WOM-MOD Y AT CENT E COMPL SPEC&COLR D O2 CONC 1 E1390 ABDON COPPOLA DEL PORT 2 HOME HOME 85%/>02 MEDICAL MEDICAL CONC AT [facility] FLW RATE PRTBLE E0431 ABDON COPPOLA GASEOUS 2 HOME HOME O2 SYS MEDICAL MEDICAL RENT; EQUIPME EQUIPME FLWMTR HUMIDFR&M ASK COMPREHEN 53116 COMBINED COMBINED SIVE 2 PHYSICIAN PHYSICIAN METABOLIC S LA S LA PANEL BLOOD 79451 COMBINED COMBINED COUNT 2 PHYSICIAN PHYSICIAN COMPLETE S LA S LA AUTO&AUTO DIFRNTL WBC HEMOGLOBI 15994 COMBINED COMBINED N 2 PHYSICIAN PHYSICIAN GLYCOSYLA S [place] A1[place] [address] COMBINED COMBINED THYROID 2 PHYSICIAN PHYSICIAN STIMULATI [place] [address] COMBINED COMBINED FREE 2 PHYSICIAN PHYSICIAN THYROXINE S LA S LA COLLECTIO 03232 COMBINED COMBINED N VENOUS 2 PHYSICIAN PHYSICIAN BLOOD S LA S LA VENIPUNCT URE PROTHROMB 05028 COMBINED COMBINED IN TIME 2 PHYSICIAN PHYSICIAN S LA S LA PROTHROMB 59241 CEN[facility]AL CENTRAL IN TIME 2 [facility] HOSP NATRIURET 21577 CEN[facility]AL CENTRAL IC 2 [facility] PEPTIDE HOSP HOSP THER 62706 CENTRAL CENTRAL PROPH/DX 2 MOSQUE MOSQUE NJX IV HOSP HOSP PUSH SINGLE/1S T SBST/DRUG RADIOLOGI 35204 [facility] CENTRAL C EXAM 2 [facility] CHEST 2 HOSP HOSP VIEWS FRONTAL&L ATERAL BLOOD 57074 [facility] CENTRAL COUNT 2 [facility] COMPLETE HOSP HOSP AUTO&AUTO DIFRNTL WBC COMPREHEN 52153 CEN[facility]AL CENTRAL SIVE 2 [facility] METABOLIC HOSP HOSP PANEL NONCOVERE A9270 CENTRAL CENTRAL D ITEM OR 2 [facility]ICE [facility] HOSP PROTHROMB 60549 COMBINED COMBINED IN TIME 2 PHYSICIAN PHYSICIAN S LA S LA COLLECTIO 97341 COMBINED COMBINED N VENOUS 2 PHYSICIAN PHYSICIAN BLOOD S LA S LA VENIPUNCT URE COLLECTIO 46676 [facility] N VENOUS 2 [facility] VENIPUNCT URE PROTHROMB 67298 [facility] IN TIME 2 [facility] URNLS DIP 92407 [facility] 2 [facility] STICK/TAB HOSPITAL HOSPITAL LET REAGENT AUTO MICROSCOP Y BLOOD 28174 [facility] QU[facility] COUNT 2 [facility] COMPLETE [facility] AUTO&[place] [address] [facility] QUICK ABDOMEN & 2 [facility] PELVIS [facility] W/CONTRAS T MATERIAL THER 19422 YNES QUICK PROPH/DX 2 [facility] NJX IV [facility] PUSH SINGLE/1S T SBST/DRUG BASIC 41127 [facility] QUICK METABOLIC 2 [facility] CALCIUM TOTAL PROTHROMB 39138 COMBINED COMBINED IN TIME 2 PHYSICIAN PHYSICIAN S LA S LA COLLECTIO 76025 COMBINED COMBINED N VENOUS 2 PHYSICIAN PHYSICIAN BLOOD [facility] [address] 2 MEDICINE DEN DAY SERV MANAGEMEN @CTRL BAP T > 30 MIN SBSQ [address]7791 [place] [address] MEDICINE DEN CARE/DAY SERVICES 25 MINUTES SBSQ 26661 [facility] 2 MEDICINE DEN CARE/DAY SERVICES 25 MINUTES SBSQ 27964 [facility] 2 MEDICINE DEN CARE/DAY SERVICES 35 MINUTES SBSQ 34046 [facility] 2 MEDICINE DEN CARE/DAY SERVICES 35 MINUTES SBSQ 82546 [facility] 2 MEDICINE CARE/DAY SERV 35 @CTRL BAP MINUTES SBSQ 24618 [place] [address] ONCOLOGY CARE/DAY ASSOCIATE 15 S MINUTES INITIAL 05849 [facility] 2 [facility] CARE/DAY CLINIC 50 PSC MINUTES INITIAL [id number] CARE/DAY ONCOLOGY 70 A MINUTES DUP-SCAN 68428 [facility] KELLY XTR VEINS 2 ANT COMPLETE CARDIOLOG Y AT CENT BILATERAL STUDY INTERRUPT 387 [facility] ION OF 2 [facility] CAVA ANGIOCARD 8851 CENTRAL CENTRAL IOGRAPHY 2 [facility] CAVAE INTRO 31093 KEE SWEET CATHETER 2 THO THO SUPER[place]/ [place] [address] SCHWARCZ SCHWARCZ INTRVAS 2 THO THO VC FILTR W/WO VAS ACS VSL SELXN RS&I VENOGRAPH 30907 UNITED SCHWARCZ Y CAVAL 2 SURGICAL THO INFERIOR ASSOCIATE SERIALOGR S APHY RS&I ECHO 25697 [facility] TTHRC R-T 2 IV HEN 2D CARDIOLOG W/WOM-MOD Y AT CENT E COMPL SPEC&[place] [address] [facility] ABDOMEN & 2 RADIOLOGY PELVIS ASSOC W/O CONTRAST MATERIAL BLOOD 71241 YNES QUICK COUNT 2 [facility] AUTO&AUTO DIFRNTL WBC CULTURE 50776 YNES QUICK BACTERIAL 2 [facility] AEROBIC W/ID ISOLATES ECG 52817 ROBBY BUSTAMANTE ROUTINE 2 EMERGENCY EMERGENCY ECG SERVICES SERVICES W/LEAST 12 LDS I&R ONLY RADIOLOGI 27285 RASHIDAGENESIS OZIELGINA C EXAM [address] VIEWS FRONTAL&L ATERAL THERAPEUT 29529 YNES LUDWIG IC 2 [facility] IV PUSH EACH NEW DRUG THERAPEUT 71584 [facility] TIC/DX INJECTION SUBQ/IM THER 13176 YNES QUICK PROPH/DX 2 [facility] PUSH SINGLE/1S T SBST/DRUG ECG 38649 YNES QUICK ROUTINE 2 [facility] W/LEAST 12 LDS TRCG ONLY W/O I&R COLLECTIO 70365 YNES QUICK N VENOUS 2 [facility] VENIPUNCT URE FIBRIN 82131 YNES QUICK DGRADJ 2 [facility] D-DIMER QUANTITAT JOANIE PROTHROMB 60631 YNES QUICK IN TIME [address] [facility] THORAX 34340 YNES QUICK 2 [facility] [place] [place] T MATERIAL RADIOLOGI 86697 ROBBY BUSTAMANTE C 2 EMERGENCY EMERGENCY EXAMINATI SERVICES SERVICES ON CHEST SINGLE VIEW FRONTAL THROMBOPL 04585 YNES QUICK ASTIN 2 [facility] PARTIAL PLASMA/WH OLE BLOOD COMPREHEN 69318 YNES QUICK SIVE 2 [facility] PANEL PRTBLE E0431 ABDON COPPOLA GASEOUS 2 HOME HOME O2 SYS MEDICAL MEDICAL RENT; EQUIPME EQUIPME FLWMTR HUMIDFR&M ASK O2 CONC 1 E1390 ABDON COPPOLA [place] 2 HOME HOME 85%/>02 MEDICAL MEDICAL CONC AT EQUIPME EQUIPME PRSC FLW RATE THERAPEUT [address] IC 2 [facility] INJECTION INC [place] [address] INFUSION 2 [facility] THERAPY/P INC INC ROPHYLAXI S /DX 1ST TO [address] ED/NONPRE [address] [facility] HOSP SSURIZED INC INC INHALATIO N TREATMENT SMR PRIM [address] SRC 2 [facility] GRAM/GIEM INC INC SA STAIN BCT FUNGI/LEODAN L CULTURE 88330 [address] BACTERIAL 2 [facility] BLOOD INC INC AEROBIC W/ID ISOLATES RADIOLOGI 94310 [facility] EXAM 2 MEDICAL STEFF CHEST 2 IMAGING VIEWS ASS FRONTAL&L ATERAL URNLS DIP [address] STICK/TAB CLINIC LET PSC REAGENT AUTO MICROSCOP Y BLOOD [address] COUNT 2 [facility] COMPLETE INC INC AUTO&AUTO DIFRNTL WBC PROTHROMB [address] IN TIME 2 [facility] [place] [address] LAB [facility] PROSTATE 2 AMERIC AMERIC 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 TOTAL CYTP 26032 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 2 Y MONICA OF Y MONICA OF CELL LINDA LINDA ENHANCEME H H NT INTERPJ XCPT C/V CUL BACT [address] XCPT 2 [facility] URINE INC INC BLOOD/STO OL AEROBIC ISOL BASIC [address] METABOLIC 2 [facility] PANEL INC INC CALCIUM TOTAL PRTBLE E0431 ABDON COPPOLA GASEOUS 2 HOME HOME O2 SYS MEDICAL MEDICAL RENT; EQUIPME EQUIPME FLWMTR HUMIDFR&M ASK O2 CONC 1 E1390 ABDON COPPOLA DEL PORT 2 HOME HOME 85%/>02 MEDICAL MEDICAL CONC AT EQUIPME EQUIPME PRSC FLW RATE MRI BRAIN 32855 NEURODIAG [place]AN[place] BRAIN 2 NOSTICPSC ROL STEM W/[place] [address] [facility] HEAD/BRAI 2 MEDICAL STEFF N W/O IMAGING CONTRAST ASS MATERIAL THERAPEUT [address] IC 2 [facility] PROPHYLAC INC INC TIC/DX INJECTION SUBQ/IM 3D [address] RENDERING 2 [facility] W/INTERP INC INC & POSTPROCE SS SUPERVISI ON CT ORBIT 81203 [place] D[place] SELLA/POS 2 MEDICAL STEFF T IMAGING FOSSA/EAR ASS W/O CONTRAST MATRL COLLECTIO 56817 [place] VENOUS 2 [facility] URE PROTHROMB 03191 [place] IN TIME 2 [facility] COLLECTIO 96309 [place] N VENOUS 2 [facility] URE PROTHROMB 36439 [place] IN TIME 2 [facility] RADIOLOGI 70365 [place] C EXAM [address] HOSPITAL VIEWS FRONTAL&L ATERAL DUP-SCAN 86286 [facility] XTR VEINS 2 SUZANNE III J COMPLETE CARDIOLOG Y CLINIC BILATERAL STUDY PRTBLE E0431 ABDON COPPOLA GASEOUS 2 HOME HOME O2 SYS MEDICAL MEDICAL RENT; EQUIPME EQUIPME FLWMTR HUMIDFR&M [facility] 60197 ROBBY LARSEN DISCHARGE 2 EMERGENCY DENISE DAY SERVICES MANAGEMEN T > 30 MIN O2 CONC 1 E1390 ABDON COPPOLA DEL PORT 2 HOME HOME 85%/>02 MEDICAL MEDICAL CONC AT EQUIPME EQUIPME PRSC FLW RATE SBSQ 48855 [facility] 2 EMERGENCY DENISE CARE/DAY SERVICES 25 MINUTES SBSQ 06576 [facility] 2 EMERGENCY DENISE CARE/DAY SERVICES 25 MINUTES SBSQ 80566 [facility] 2 EMERGENCY DENISE CARE/DAY SERVICES 25 MINUTES INITIAL 86463 [facility] 2 EMERGENCY DENISE CARE/DAY SERVICES 70 MINUTES DUP-SCAN 36172 PEPE NEVAREZ NEVAREZ PEPE XTR VEINS 2 COMPLETE CONSULTIN G SERV BILATERAL STUDY ECHO 14908 PEPE NEVAREZ NEVAREZ PEPE TTHRC R-T 2 2D CONSULTIN W/WOM-MOD G SERV E COMPL SPEC&COLR D ECG 88154 ROBBY LINDER ISIDORO ROUTINE 2 EMERGENCY ECG SERVICES W/LEAST 12 LDS I&R ONLY CT THORAX 84338 [place] [place] IRVIN 2 RADIOLOGY RAY W/CONTRAS T MATERIAL RADIOLOGI 60786 [place] [place] CARINA MAT C 2 RADIOLOGY EXAMINATI ON CHEST SINGLE VIEW FRONTAL CRITICAL 30589 ROBBY LINDER ISIDORO CARE 2 EMERGENCY ILL/INJUR SERVICES ED PATIENT INIT 30-74 MIN COMPREHEN 19387 [facility] SIVE 2 [facility] PANEL CULTURE 36625 [facility] BACTERIAL 2 [facility] HOSP [place] [address] [facility] BLOOD/URI 2 [facility] HOSP BLOOD 70893 [facility] COUNT 2 [facility] COMPLETE [facility]OSP HOSP AUTO&AUTO DIFRNTL WBC URNLS DIP 82135 [facility]AL 2 [facility] STICK/TAB HOSP HOSP LET REAGENT AUTO MICROSCOP Y HEMOGLOBI 00918 [facility] N 2 GLYCOSYLA CORTNEY A1C URNLS DIP 78697 [facility] WEST M[facility] 2 STICK/TAB LET RGNT NON-AUTO W/O MICRSCP IAADIADOO 80513 [facility] WEST MUR 2 STREPTOCO CCUS GROUP A CULTURE [address] BACTERIAL 2 [facility] BLOOD INC INC AEROBIC W/ID ISOLATES ECG 99026 ROBBY GUAN ROUTINE 2 EMERGENCY MIGUEL ECG SERVICES W/LEAST 12 LDS I&R ONLY PRESSURIZ [address] ED/NONPRE 2 [facility] SSURIZED [place] [address] INFUSION 2 [facility] THERAPY/P INC INC ROPHYLAXI S /DX 1ST TO [address] IC 2 [facility] INJECTION INC INC IV PUSH EACH NEW DRUG ECG [address] ROUTINE 2 [facility]OS[facility] ECG INC INC W/LEAST 12 LDS TRCG ONLY W/O I&R CREATINE [address] KINASE MB 2 [facility] FRACTION INC INC ONLY CREATINE [address] KINASE 2 [facility] TOTAL INC INC NATRIURET [address] IC 2 [facility] [place] [address] TROPONIN 2 [facility] QUANTITAT INC INC JAONIE BLOOD [address] COUNT 2 [facility] COMPLETE INC INC AUTO&AUTO DIFRNTL WBC IAADI [address] INFLUENZA 2 [facility] B VIRUS INC INC IAADI [address] INFFLUENZ 2 [facility] A A VIRUS INC INC BLOOD [address] GASES ANY 2 [facility] INC INC COMBINATI ON PH PCO2 PO2 CO2 HCO3 COMPREHEN [address] SIVE 2 [facility] METABOLIC INC INC PANEL RADIOLOGI 21989 [place] DAGOBERT[place] 2 MEDICAL STEFF EXAMINATI IMAGING [place] [address] YNES QUICK HEAD/BRAI 1 [facility] N W/O HOSPITAL HOSPITAL CONTRAST MATERIAL COMPREHEN [address] SIVE 1 [facility] METABOLIC INC INC PANEL URNLS DIP [address] 1 [facility] STICK/TAB INC INC LET REAGENT AUTO MICROSCOP Y INSJ TEMP [address] NDWELLG 1 [facility] BLADDER INC INC CATHETER SIMPLE BLOOD [address] COUNT 1 [facility] COMPLETE INC INC AUTO&AUTO DIFRNTL WBC SPMTRY 64166 [facility] W/VC 1 EXPIRATOR Y HANSEL W/WO MXML VOL VNTJ FLUOROSCO 26953 ADVANCED ADVANCED PIC 1 PAIN PAIN GUIDANCE MEDICIINE MEDICIINE NEEDLE PSC PSC PLACEMENT ADD ON MULTIPLE 71529 ADVANCED ADVANCED NERVE 1 PAIN PAIN BLOCK MEDICIINE MEDICIINE INJECTION PSC PSC S RIB NERVES COMPREHEN 72295 [place] SIVE 1 [facility] PANEL LIPID 24906 [place] PANEL 1 [facility] BLOOD 02364 [place] COUNT 1 [facility] MCRSCP W/MNL DIFRNTL WBC COUNT BLOOD 44517 [place] COUNT 1 [facility] AUTOMATED RADIOLOGI 35603 [place] BOSOLITARIOON C EXAM 1 [facility] CHEST [address] [place] [address] HOSPITAL VIEWS FRONTAL&L ATERAL RADEX 53148 [facility] SPINE 1 [facility] TH[facility]ACIC [facility] 2 VIEWS HEMOGLOBI 16672 [place] N 1 [facility] CORTNEY A1C URNLS DIP 75529 [place] 1 [facility] STICK/TAB HOSPITAL HOSPITAL [place] [address] [place] FREE 1 [facility] THYROXINE [facility] [place] [address] [place] B[place] THYROID 1 [facility] TSH COLLECTIO 99527 [place] N VENOUS 1 [facility] VENIPUNCT URE INJECTION J3301 ADVANCED VERDUGO 1 PAIN [place] TRIAMCINO MEDICIINE LONE PSC ACETONIDE NOS 10 MG INJECTION 69859 ADVANCED VERDUGO 1 PAIN [place] ANESTHETI MEDICIINE C AGENT PSC [facility] NRV [place]X 31097 ADVANCED [place] DX/THER 1 [place] [place] AGT PVRT MEDICIINE FACET JT PSC CRV/THRC 1 LEVEL INJECTION J3301 ADVANCED ADVANCED 1 PAIN PAIN TRIAMCINO MEDICIINE MEDICIINE LONE PSC PSC ACETONIDE NOS 10 MG NJX 31032 ADVANCED [place] DX/THER 1 [place] AGT PVRT MEDICIINE FACET JT PSC CRV/THRC 2ND LEVEL NJX 64006 ADVANCED [place] DX/THER 1 [place] AGT PVRT MEDICIINE FACET JT PSC CRV/THRC 3+ LEVEL LOCM Q9965 ADVANCED [place] 100-199 1 [facility] [place] MG/ML MEDICIINE IODINE PSC CONCENTRA TION PER ML MODERATE 27179 ADVANCED [place] SEDATJ 1 PAIN [place] SAME MEDICIINE PHYS/QHP PSC 5/>YRS INIT 30 MIN INFLUENZA Q2038 [facility] M[facility] VACC 1 SPLIT VIRUS 3 YRS & > IM FLUZONE ADMINISTR G0008 [facility] MUR ATION OF 1 INFLUENZA VIRUS VACCINE OPHTH 78100 [facility] 1 VISION XM&EVAL COMPRE NEW PT 1/> VST FLUOR 18353 ADVANCED [place] NEEDLE/CA 1 PAIN [place] TH MEDICIINE SPINE/PAR PSC ASPINAL DX/THER ADDON MODERATE 45137 ADVANCED [place] SEDATJ 1 PAIN [place] SAME MEDICIINE PHYS/QHP PSC 5/>YRS INIT 30 MIN NJX 82661 ADVANCED [place] DX/THER 1 [facility] [place] SBST MEDICIINE EPIDURAL/ PSC SUBRACH CERV/THOR ACIC INJECTION J3301 ADVANCED VERDU[place] 1 PAIN [place] TRIAMCINO MEDICIINE LONE PSC ACETONIDE NOS 10 MG HEMOGLOBI 10460 [facility] MUR N 1 GLYCOSYLA CORTNEY A1C NJX 92652 ADVANCED [place] DX/THER 1 [place] AGT PVRT MEDICIINE FACET JT PSC CRV/THRC 1 LEVEL NJX 20724 ADVANCED [place] DX/THER 1 [place] AGT PVRT MEDICIINE FACET JT PSC CRV/THRC 2ND LEVEL INJECTION J3301 ADVANCED [place]DU[place] 1 PAIN [place] TRIAMCINO MEDICIINE LONE PSC ACETONIDE NOS 10 MG NJX 91067 ADVANCED [place] DX/THER 1 [place] AGT PVRT MEDICIINE FACET JT PSC CRV/THRC 3+ LEVEL LOCM Q9965 ADVANCED [place]GO 100-199 1 [place] [place] MG/ML MEDICIINE IODINE PSC CONCENTRA TION PER ML MODERATE 64302 ADVANCED [place] SEDATJ 1 PAIN [place] SAME MEDICIINE PHYS/QHP PSC 5/>YRS INIT 30 MIN INJECTION J1030 [facility] 1 METHYLPRE DNISOLONE ACETATE 40 MG INJECTION J1100 [facility] 1 DEXAMETHO SONE SODIUM PHOSPHATE 1 MG MRI 54704 NEURODIAG T[place]OW ABDOMEN 1 NOSTICPSC ROL W/O & W/CONTRAS T MATERIAL MRI 38103 NEURODIAG [place] SPINAL 1 NOSTICPSC ROL CANAL THORACIC W/O CONTRAST MATRL MRI 60206 NEURODIAG [place] SPINAL 1 NOSTICPSC ROL CANAL LUMBAR W/O CONTRAST MATERIAL 3D [address] RENDERING 1 [facility] W/INTERP INC INC & POSTPROCE SS SUPERVISI ON MRI [address] SPINAL 1 [facility] CANAL INC INC CERVICAL W/O CONTRAST MATRL PROSTATE G0103 [facility] CANCER 1 AMERIC AMERIC SCREENING 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 ; PSA TEST CT THORAX 20674 [facility] 1 [facility] [place] [address] [facility] ABDOMEN 1 [facility] W/O HOSPITAL HOSPITAL CONTRAST MATERIAL RADIOLOGI 68384 [place] SEAN Daniel EXAM 1 RADIOLOGY CHEST 2 VIEWS FRONTAL&L ATERAL HEMOGLOBI 91229 [facility] N 1 [place] [address] [facility] TROPONIN 1 [facility] JOANIE NATRIURET 74003 [facility] QUICK IC 1 [facility] BLOOD 00590 [facility] QUICK COUNT 1 [facility] AUTO&AUTO DIFRNTL WBC PROTHROMB 98712 YNES QUICK IN TIME 1 [facility] FIBRIN 14060 [facility] DGRADJ 1 [facility] D-DIMER QUAL/SEMI FLACO COLLECTIO 10057 [facility] N VENOUS 1 [facility] VENIPUNCT URE RADIOLOGI 22793 [facility] C EXAM 1 [facility] CHEST [address] [place] [address] HOSPITAL VIEWS FRONTAL&L ATERAL THER 43574 [facility] PROPH/DX 1 [facility] PUSH SINGLE/1S T SBST/DRUG ECG 77975 [facility] ROUTINE 1 [facility] W/LEAST 12 LDS TRCG ONLY W/O I&R THROMBOPL 34313 [facility] ASTIN 1 [facility] PARTIAL PLASMA/WH OLE BLOOD COMPREHEN 43049 [facility] SIVE 1 [facility] PANEL Encounters Encounter Start End Date Code Location Performer Type Date HOSPITAL YNES - 7 7 [facility] T OFFICE 33759 [facility] 7 7 PHYSICIAN T VISIT PRACTICE 25 L MINUTES EMERGENCY 58564 ADRIANE BURKS 7 7 PHYSICIAN U ASHIA S, PLLC T VISIT HIGH/URGE NT [facility] - 7 7 [facility] - 7 7 [facility] T OFFICE 26608 STEPHANIE SILVA [facility] 7 7 [place] [facility] VISIT CLINIC 25 PSC MINUTES OFFICE 72006 [place] [facility] OUTPATIEN 7 7 PHYSICIAN T VISIT PRACTICE 15 L MINUTES OFFICE 66531 YNES TATE OUTPATIEN 7 7 PHYSICIAN T VISIT PRACTICE 15 L MINUTES EMERGENCY 16699 [facility] DEPT 7 7 JEROD VISIT EMERGENCY HIGH PHYS SEVERITY& THREAT FUNCJ OFFICE 54849 STEPHANIE BONNER OUTPATIEN 7 7 [place] T VISIT [facility]INIC 40 PSC MINUTES HOSPITAL [facility] - 7 7 [facility] OUTPATIEN INC T OFFICE 91450 YNES TATE OUTPATIEN 7 7 PHYSICIAN T VISIT PRACTICE 15 L MINUTES OFFICE 08218 [facility] Y T VISIT ASSOCIATE 25 S OF CIELO MINUTES EMERGENCY 37886 ADRIANE GOLDSMITH 7 7 PHYSICIAN DEPARTMEN S, [facility] T VISIT HIGH/URGE NT SEVERITY HOSPITAL [facility] - 7 7 [facility] OUTPATIEN INC T OFFICE 28334 YNES TATE OUTPATIEN 7 7 PHYSICIAN T VISIT PRACTICE 15 L MINUTES OFFICE 64515 YNES TATE OUTPATIEN 7 7 PHYSICIAN T VISIT PRACTICE 15 L MINUTES OFFICE 13474 STEPHANIE SILVA OUTPATIEN 7 7 [place] T VISIT CLINIC 15 PSC MINUTES EMERGENCY 56592 [facility] 7 7 MEM [facility] DEPARTMEN INC T VISIT MODERATE SEVERITY HOSPITAL [facility] - 7 7 [facility] OUTPATIEN INC T HOSPITAL YNES - 6 6 [facility] T EMERGENC[facility] 62970 [facility] THE 6 6 [facility] STRIDE DEPARTMEN INC PROGRAM T VISIT HIGH/URGE NT SEVERITY HOSPITAL [facility] - 6 6 [facility] OUTPATIEN INC T OFFICE 63449 STEPHANIE SILVA OUTPATIEN 6 6 [place] JUS T VISIT CLINIC 15 PSC MINUTES OFFICE 72077 NEPHROLOG NICKY OUTPATIEN 6 6 Y BOLA T VISIT ASSOCIATE 40 S OF CIELO MINUTES HOSPITAL [facility] - 6 6 N OUTPATIEN COMMUNTIY T [facility] - 6 6 E[facility] OUTPATIEN T OFFICE 02402 DAPHNE DAPHNE OUTPATIEN 6 6 ANA ANA T NEW 45 MINUTES OFFICE 46505 [facility] VIO[facility] OUTPATI[facility] 6 6 [facility] T VISIT MEDICAL 15 G MINUTES OFFICE 77343 [facility] OUTPATIEN 6 6 NE [facility]ALTH T NEW 45 MEDICAL MINUTES [facility] MOSQUE - 6 6 HEALTH OUTPATIEN [facility] T OFFICE 93668 PEPE NEVAREZ NEVAREZ PEPE OUTPATIEN 5 5 T VISIT CONSULTIN 40 G SRV [facility] ARIANA - 5 5 MEM [facility] OUTPATIEN INC T EMERGENCY 24532 [facility] 5 5 [facility] DEPARTMEN INC T VISIT MODERATE SEVERITY OFFICE 25908 STEPHANIE SILVA OUTPATIEN 5 5 [place] JUS T VISIT CLINIC 15 PSC MINUTES [facility] ARIANA - 5 5 MEM HOSP OUTPATIEN INC T OFFICE 32484 VIJAY GARLAND BUX ANJ OUTPATIEN 5 5 T [facility] 30 MINUTES [facility] ARIANA - 5 5 MEM H[facility] OUTPATIEN INC HOSPITAL ARIANA - 5 5 [facility] OUTPATIEN INC HOSPITAL ARI[facility] - 5 5 MEM [facility] OUTPATIEN INC HOSPITAL UNIVERS[facility] - 5 5 Y INPATIENT HOSPITAL OFFICE 32072 STEPHANIE SILVA OUTPATIEN 5 5 [place] JUS T VISIT CLINIC 15 PSC MINUTES Emergency AMALIA Saxena MD (ER) 4 20:18 4 22:18 [facility] Emergency AMALIA Canales (ER) 3 23:09 3 01:44 [facility] Emergency AMALIA Guan MD (ER) 3 21:23 3 00:27 [facility] Emergency AMALIA Guan MD (ER) 3 19:06 3 21:45 [facility] OFFICE 98976 [facility] MUR OUTPATIEN 2 2 T VISIT 25 MINUTES EMERGENCY 57846 [facility] 2 2 [facility] DEPARTMEN HOSP T VISIT HIGH/URGE NT SEVERITY HOSPITAL [facility]AL - 2 2 [facility] OUTPATIEN HOSP T OFFICE 89878 [facility] OUTPATIEN 2 2 T VISIT 25 MINUTES EMERGENCY 03906 [facility] 2 2 [facility] DEPARTMEN INC T VISIT HIGH/URGE NT SEVERITY HOSPITAL [facility] - 2 2 [facility] OUTPATIEN INC T EMERGENCY 32674 ROBBY ZIEGLER DEPT 2 2 EMERGENCY III [facility] HIGH SEVERITY& THREAT FUNCJ OFFICE 74517 [facility] OUTPATIEN 2 2 T VISIT 25 MINUTES HOSPITAL [facility] - 2 2 [facility] OUTPATIEN INC T EMERGENCY 61190 [place] 2 2 [facility] DEPARTMEN INC T VISIT HIGH/URGE NT SEVERITY OFFICE 61058 [facility] OUTPATIEN 2 2 T VISIT 25 MINUTES EMERGENCY 33437 [facility] DEPT 2 2 JEROD VISIT EMERGENCY HIGH PHYS SEVERITY& THREAT FUNCJ OFFICE 50084 [facility] OUTPATIEN 2 2 T VISIT [address] INPATIENT OFFICE 29025 SCHWARCZ SCHWARCZ OUTPATIEN 2 2 THO THO T VISIT 25 MINUTES OFFICE 39771 PODIATRIC ASHLEY OUTPATIEN 2 2 FOOT & JR THO T VISIT ANKLE 10 SPECI MINUTES OFFICE 52891 [facility] TIERRA OUTPATIEN 2 2 T VISIT 15 MINUTES OFFICE 64165 [facility] OUTPATIEN 2 2 [place] THO T VISIT CLINIC 25 PSC MINUTES OFFICE 26829 [facility] OUTPATIEN 2 2 T VISIT 25 MINUTES HOSPITAL [place] - 2 2 [facility] CENTRAL - 2 2 [facility] OFFICE 31493 [facility] OUTPATIEN 2 2 ONCOLOGY T VISIT ASSOCIATE 15 S MINUTES HOSPITAL [facility] - 2 2 [facility] 89893 [facility] [address] [facility] T VISIT HIGH/URGE NT SEVERITY OFFICE 37907 [facility] OUTPATIEN 2 2 T VISIT 25 MINUTES HOSPITAL [place] - 2 2 [facility] EMERGENCY 66339 [facility] 2 2 [facility] T VISIT HIGH/URGE NT SEVERITY EMERGENCY 13447 FENG SWINEY DEPT 2 2 MEDICAL PAT VISIT GROUP, HIGH PLLC SEVERITY& THREAT [facility] CENTRAL - 2 2 [facility] INPATIENT [facility] BOSOLITARIOON - 2 2 [facility] T EMERGENCY 33091 [place] DEPT 2 2 COMM[facility]ITY VISIT HOSPITAL HIGH SEVERITY& THREAT [facility] - 2 2 [facility] OFF[facility] 19515 [facility] OUTPATIEN 2 2 [facility] 40 PSC MINUTES EMERGENCY 06746 [facility] 2 2 [facility] HIGH/URGE NT SEVERITY EMERGENCY 17500 ROBBY CANALES DEPT 2 2 EMERGENCY [facility] VISIT SERVICES HIGH SEVERITY& THREAT FUNCJ OFFICE 22718 [facility] OUTPATIEN 2 2 T VISIT 15 MINUTES OFFICE 36964 [facility] OUTPATIEN 2 2 T VISIT 15 MINUTES EMERGENCY 05099 ROBBY CANALES 2 2 EMERGENCY [facility] DEPARTMEN SERVICES T VISIT HIGH/URGE NT SEVERITY HOSPITAL [place] - 2 2 [facility] 14054 [place] 2 2 [facility] T VISIT LOW/MODER SEVERITY OFFICE 68339 YEYO KENNEY OUTPATIEN 2 2 MD RG VIOLET T NEW 60 PSC MINUTES OFFICE 52647 [facility] OUTPATIEN 2 2 T VISIT 15 MINUTES EMERGENCY 79995 [facility] 2 2 [facility] INC T VISIT MODERATE SEVERITY HOSPITAL ARAINA - 2 2 [facility] OUTPATIEN INC T EMERGENCY 97570 ROBBY BOLTON DEPT 2 2 EMERGENCY VISIT SERVICES HIGH SEVERITY& THREAT FUN HOSP[facility] [place] - 2 2 [facility] T OFFICE 24399 [facility] OUTPATIEN 2 2 T VISIT 25 MINUTES HOSPITAL [place] - 2 2 [facility] T OFFICE 51479 [facility] OUTPATIEN 2 2 T VISIT 15 MINUTES HOSPITAL [place] - 2 2 [facility] T OFFICE 33167 [facility] OUTPATIEN 2 2 T VISIT 25 MINUTES HOSP[facility] [place] [facility] 48957 [facility] 2 2 T VISIT 15 MINUTES [facility] 81297 [facility] 2 2 [facility] T VISIT LOW/MODER SEVERITY OFFICE 99010 [facility] 2 2 T VISIT 25 MINUTES EMERGENCY 39670 [facility] 2 2 EMERGENCY DEPARTMEN SERVICES T VISIT HIGH/URGE NT SEVERITY [facility] T EMERGENCY 13049 [facility] 2 2 [facility] T VISIT HIGH/URGE NT SEVERITY EMERGENCY 30944 ROB[facility] GUAN DEPT 2 2 EMERGENCY MIGUEL VISIT SERVICES HIGH SEVERITY& THREAT FUN OFFICE 50250 [facility] 2 2 T VISIT 15 MINUTES [facility] [place] [facility] 1 1 [facility] - 1 1 [facility] INC T EMERGENCY 48403 [facility] [place] 1 1 DEPARTMEN T VISIT HIGH/URGE NT SEVERITY EMERGENCY 89196 [facility] 1 1 [facility] T VISIT MODERATE SEVERITY OFFICE 40318 [facility] 1 1 T VISIT 15 MINUTES OFFICE 36344 [facility] 1 1 T VISIT 15 MINUTES OFFICE 98212 [facility] 1 1 PAIN T VISIT MEDICIINE 15 PSC MINUTES [facility] [facility] 1 [facility] T OFFICE 76670 [facility] 1 1 T VISIT 15 MINUTES OFFICE 33173 [facility] 1 1 PAIN KEYONNA T VISIT MEDICIINE 25 PSC MINUTES OFFICE 14065 [facility] 1 1 T VISIT 15 MINUTES OFFICE 78215 [facility] 1 1 T VISIT 15 MINUTES OFFICE 86485 [facility] 1 1 PAIN [place] T VISIT MEDICIINE 40 PSC MINUTES OFFICE 82195 [facility] 1 1 PAIN [place] T VISIT MEDICIINE 25 PSC MINUTES OFFICE 90248 [facility] 1 1 T VISIT 15 MINUTES OFFICE 37490 [facility] 1 1 T VISIT 15 MINUTES OFFICE 74132 [facility] 1 1 T VISIT 25 MINUTES [facility] [place] [facility] 1 1 [facility] T OFFICE 85064 [facility] 1 1 T VISIT 15 MINUTES [facility] [place] [facility] 1 1 [facility] T OFFICE 01799 [facility] 1 1 T VISIT 25 MINUTES OFFICE 11759 [facility] 1 1 T VISIT 25 MINUTES EMERGENCY 25675 [place] 1 1 [facility] T VISIT HIGH/URGE NT SEVERITY [facility] [place] - 1 1 [facility] T
--- OUTSIDE RECORDS SUMMARY | 2017-07-09 06:36 | External Medical Summary Rpt | CCD ---
Author Author , RADHA Organization RADHA Address Unknown Phone [email or web address] Care Team Providers Care Clinical Documentation Nurse Name Role Phone BELL VIOLET, BELL VIOLET Unavailable Unavailable [facility], [facility] Unavailable Unavailable [facility], [facility] Unavailable Unavailable RONALDO STEPHANY, RONALDO Unavailable Unavailable STEPHANY [facility] Unavailable Unavailable MEDICIINE [facility], [facility] [employer] Unavailable Unavailable INC, [employer] Unavailable Unavailable INC, [employer] [facility] Unavailable [facility]available P[facility], [facility] Unavailable Unavailable [facility], [facility] Unavailable Unavailable ASSOCIATES, [facility] & Unavailable Unavailable CRITICAL, [facility] KARTIK NEWBY, VERDUGO Unavailable Unavailable KEYONNA BESSON, BESSON Unavailable Unavailable [facility] Unavailable Unavailable IMAGING L, [facility] IMAGING L [facility] Unavailable Unavailable HOSPITAL, [facility] Unavailable Unavailable PRACTICE L, [facility] BREAZEALE GRA, Unavailable Unavailable BREAZEALE GRA BUX ANJ, BUX ANJ Unavailable Unavailable JOHN CELINA IGN, Unavailable Unavailable JOHN CELINA IGN [facility], Unavailable Unavailable [facility] Unavailable Unavailable PHYS PSC, [...] [facility] Unavailable Unavailable [place], [facility] [place] ESTRADA G, ESTRADA G Unavailable Unavailable EVERMAN VOILET, EVERMAN Unavailable Unavailable VIOLET BALL THO, Unavailable Unavailable BALL THO KLEIN ALI, KLEIN Unavailable Unavailable ALI VANCE SCO, VANCE Unavailable Unavailable SCO GAGUA IRI, GAGUA IRI Unavailable Unavailable FLORY MIGUEL, FLORY Unavailable Unavailable MIGUEL [facility] LINDER ISIDORO, LINDER ISIDORO Unavailable Unavailable ADONAY RHO, ADONAY Unavailable Unavailable RHO GUNDUMALLA GOP, Unavailable Unavailable GUNDUMALLA GOP OBREGON PALMIRA, OBREGON Unavailable Unavailable [facility] Unavailable Unavailable INC, [facility] Unavailable Unavailable HOSPITAL P, [facility] HARGR[facility] GUILHERME, [facility] Unavailable Unavailable LUIS RADHA, LUIS RADHA Unavailable Unavailable JIM KEITH, JIM KEITH Unavailable Unavailable [facility] Unavailable Unavailable @CTRL BAP, [facility]OS[facility] @CTRL [facility] Unavailable Unavailable SERVICES O, HOSPITAL MEDICINE [...] III KEITH, Unavailable Unavailable JAIME III KEITH [facility] Unavailable Unavailable [facility], [facility] Unavailable Unavailable [facility]ING [facility], [facility] Unavailable Unavailable MEDICAL G, [facility] G Emy Saxena MD, Unavailable Unavailable [...] [facility]DA [facility], [facility]ORAT[facility] Unavailable Unavailable AT [facility] AT [facility] Unavailable Unavailable LABORATO, [facility] Unavailable Unavailable LABORATO, [facility] Sumyaa Guan MD, Unavailable Unavailable Sumaya GARLAND MD, VIJAY Unavailable Unavailable DADA MENDOZA ANT, KELLY Unavailable Unavailable ANT [facility] Unavailable Unavailable SERVICES, [facility], Unavailable Unavailable PLLC, [facility] Unavailable Unavailable OF [place], [facility] ANKIT DENISE, ANKIT Unavailable Unavailable DENISE [facility], Unavailable Unavailable [facility], Unavailable Unavailable [facility] Unavailable Unavailable [facility], [facility] Unavailable Unavailable [facility], [facility] PSC CIFUENTES LAR, CIFUENTES LAR Unavailable Unavailable [...] IV HEN, Unavailable Unavailable WALLS IV HEN [facility] Unavailable Unavailable PULMONARY, [facility] CHRISTIANO OLGA, CHRISTIANO Unavailable Unavailable [...] Unavailable Unavailable PHYSICIAN SERVI, [facility], Unavailable Unavailable [facility], Unavailable Unavailable [facility] Unavailable Unavailable CLINIC, [facility] IRVIN RAY, IRVIN Unavailable Unavailable RAY SWINEY, SWINEY Unavailable Unavailable SWINEY PAT, SWINEY Unavailable Unavailable PAT TALANOW ROL, TALANOW Unavailable Unavailable ROL [facility], Unavailable Unavailable [facility] LUDIVINA III J, LUDIVINA Unavailable Unavailable III J TRUE, TRUE Unavailable Unavailable [facility] Unavailable Unavailable [facility], [facility], Unavailable Unavailable [facility] WEHRMAN III OLGA, Unavailable Unavailable WEHRMAN III [...] MAT, Unavailable Unavailable RAMOS MAT CARINA MAT, CARIAN MAT Unavailable Unavailable Purpose Continuity of Care [...] OF 07-01-2017 [facility]RETER, UNSPECIFIED Z79.01 COMMERCIAL ANALYST 07-01-2017 (CURRENT) USE OF ANTICOAGULA NTS Z79.891 [facility] 07-01-2017 (CURRENT) USE OF OPIATE ANALGESIC Z79.899 OTHER LONG 07-01-2017 TERM (CURRENT) DRUG THERAPY Z86.711 PERSONAL 07-01-2017 HISTORY OF PULMONARY EMBOLISM 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 M48.02 SPINAL 06-15-2017 STENOSIS, CERVICAL REGION J449 CHRONIC 06-14-2017 [facility] OBSTRUCTIVE PULMONARY DISEASE UNS M4802 SPINAL 06-14-2017 [facility] [place] REGION 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 06-03-2017 [facility] SINGLE PHYSICIAN THYROID PRACTICE L NODULE G250 ESSENTIAL 06-03-2017 [facility] TREMOR PHYSICIAN PRACTICE L G8929 OTHER 06-03-2017 [facility] CHRONIC PHYSICIAN PAIN PRACTICE L C88564 UNSPECIFIED 06-01-2017 [facility] CHRONIC PHYSICIANS, CONJUNCTIVI PLLC TIS BILATERAL I10 ESSENTIAL 06-01-2017 [facility] PRIMARY PHYSICIANS, HYPERTENSIO PLLC N J0100 ACUTE 06-01-2017 [facility] MAXILLARY PHYSICIANS, SINUSITIS PLLC UNSPECIFIED M542 CERVICALGIA 06-01-2017 [facility] PH[facility]ICIANS, PLLC N289 DISORDER OF 05-12-2017 [place] [facility] UNSPECIFIED D6859 OTHER 04-22-2017 [facility] PRIMARY [place] THROMBOPHIL [place] X16226 OTHER LONG 04-22-2017 [facility] DRUG THERAPY R1012 LEFT UPPER 04-07-2017 [facility] [place] [facility] PAIN R109 UNSPECIFIED 04-07-2017 [facility] ABDOMINAL [facility] N189 CHRONIC 03-17-2017 NEW [facility] [place] DIS[facility]INIC PSC UNSPECIFIED N390 URINARY 03-17-2017 NEW TRACT [facility] PSC SITE NOT SPECIFIED R609 EDEMA 03-08-2017 [facility] UNSPECIFIED PHYSICIAN PRACTICE L J44.9 CHRONIC 02-02-2017 OBSTRUCTIVE PULMONARY DISEASE, UNSPECIFIED K59.00 CONSTIPATIO 02-02-2017 N, UNSPECIFIED Z79.4 [facility] 02-02-2017 (CURRENT) USE OF INSULIN B02.29 OTHER [...] OF PROSTATE Z8551 PERSONAL 12-07-2016 [facility] NEOPLASM OF BLADDER L76535 PAIN IN 12-01-2016 [place] LEFT MEDICAL SHOULDER IM[facility]ING ASS C91601 OTHER 12-01-2016 [place] CERVICAL MEDICAL DISC IMAGING ASS DEGENERATIO N AT C5-C6 LEVEL N183 CHRONIC 11-22-2016 [facility] DISEASE OF [place] STAGE 3 MODERATE N3943 POST-VOID 11-22-2016 NEPHROLOGY DRIBBLING ASSOCIATES OF [place] N401 BENIGN 11-22-2016 NEPHROLOGY PROSTATIC ASSOCIATES HYPERPLASIA OF [place] LW URINARY TRACT SX E119 TYPE 2 11-17-2016 [place] DIABETES [facility] P WITHOUT COMPLICATIO NS M791 MYALGIA 11-17-2016 [facility] [address] O03349 PAIN IN 11-17-2016 [facility] LEFT ARM PHYSICIANS, PLLC Z794 COMMERCIAL ANALYST 11-17-2016 [place] CURRENT USE [facility] OF INSULIN HOSPITAL P M7989 OTHER 11-15-2016 [facility] SPECIFIED MEM HOSP SOFT TISSUE INC DISORDERS Z720 TOBACCO USE 11-15-2016 [facility] R34266 PERSONAL 11-15-2016 [place] HISTORY OT MEDICAL VENOUS IMAGING ASS THROMBOSIS& EMBOLISM E039 HYPOTHYROID 10-29-2016 LAB [facility] ISM LINDA UNSPECIFIED HOLDINGS G894 CHRONIC 10-29-2016 [place] PAIN PHYSICIAN SYNDROME PRACTICE L C61 MALIGNANT 10-28-2016 NEW NEOPLASM OF [facility] PROSTATE CLINIC [facility] K219 GASTRO-ESOP 10-15-2016 [facility] H REFLUX MEM HOSP DISEASE INC WITHOUT ESOPHAGITIS M545 LOW BACK 10-15-2016 [facility] PAIN MEM HOS[facility] INC R319 HEMATURIA 10-15-2016 [facility] UNSPECIFIED MEM HOSP INC Z721 10-15-2016 [facility] INC Z7901 COMMERCIAL ANALYST 10-15-2016 [facility] CURRENT USE MEM HOSP OF INC ANTICOAGULA NTS Z791 [facility] 10-15-2016 [facility] CURR [facility] NON-STEROID INC AL&ANTI-INF LAMMATORIES L0211 CUTANEOUS 06-23-2016 [facility] ABSCESS OF MEM HOSP NECK INC C641 MALIGNANT 06-01-2016 NEPHROLOGY NEOPLASM RT ASSOCIATES KIDNEY OF [place] EXCEPT RENAL PELVIS C679 MALIGNANT 06-01-2016 NEPHROLOGY NEOPLASM OF ASSOCIATES BLADDER OF [place] UNSPECIFIED R079 CHEST PAIN 03-11-2016 [facility] UNSPECIFIED EAST R9431 ABNORMAL 03-11-2016 [facility] IO[facility] M4722 OT 03-04-2016 [facility] ANA SPONDYLOSIS W/RADICULOP ATHY CERVICAL REGION M4727 OT 03-04-2016 [facility] ANA SPONDYLOSIS W/RADICULOP ATHY LUMBOSACRAL RGN E042 NONTOXIC 02-09-2016 NEURODIAGNO MULTINODULA STICS INC R GOITER J341 CYST AND 02-09-2016 NEURODIAGNO MUCOCELE OF STICS INC NOSE AND NASAL SINUS J342 DEVIATED 02-09-2016 [facility] NASAL STICS INC SEPTUM R9082 WHITE 02-09-2016 NEURODIAGNO MATTER STICS INC DISEASE UNSPECIFIED M51640 PRESENCE OF 02-03-2016 [facility] OTHER HEALTH VASCULAR MEDICAL G IMPLANTS AND GRAFTS D3002 BENIGN 01-28-2016 [facility] NEOPLASM OF REGIONAL LEFT IMAGING L KIDNEY Q06454Z OTHER [facility] 01-28-2016 [facility] COMP REGIONAL UMBRELLA IMAGING L DEVICE INITIAL ENCNTR J984 OTHER 12-30-2015 [facility] DISORDERS HEALTH OF LUNG [facility] R0600 DYSPNEA 12-30-2015 [facility] UNSPECIFIED HEALTH [facility] 4019 UNSPECIFIED 05-22-2015 PEPE NEVAREZ ESSENTIAL HYPERTENSIO CONSULTING N SRV 05328 PRECORDIAL 05-22-2015 [facility] NEVAREZ PAIN CONSULTING SRV 0539 HERPES 05-20-2015 [facility]ER [facility] WITHOUT INC MENTION OF COMPLICATIO N 496 CHRONIC 05-20-2015 [facility] AIRWAY [facility] OBSTRUCTION INC NEC 7823 EDEMA 05-20-2015 [facility] INC 40139 SHORTNESS 05-20-2015 [facility] OF BREATH MEM HOS[facility] INC 47615 DIAB W/O 05-12-2015 [facility] COMP TYPE N PHYSICIAN II/UNS NOT SERVI STATED UNCNTRL 92832 OBESITY, 05-12-2015 [facility] UNSPECIFIED N PHYSICIAN SERVI 91705 OBSTRUCTIVE 05-12-2015 [facility] CHRONIC N PHYSICIAN BRONCHITIS SERVI WITH EXACERBATIO N 16101 OTHER 05-12-2015 [facility] ABNORMAL N PHYSICIAN GLUCOSE SERVI 00364 HYPERTROPHY 04-24-2015 NEW PROSTATE [facility] W/O UR OBST CLINIC PSC & OTH LUTS V1051 PERSONAL 04-24-2015 NEW HISTORY [facility] MALIGNANT CLINIC PSC NEOPLASM BLADDER 185 MALIGNANT 04-10-2015 NEW NEOPLASM OF [facility] PROSTATE CLINIC PSC 1889 MALIGNANT 04-10-2015 NEW NEOPLASM OF [facility] BLADDER CLINIC PSC PART UNSPECIFIED 1890 MALIGNANT 04-10-2015 NEW NEOPLASM OF [facility]NEY [facility] PSC EXCEPT PELVIS 15655 HYPERTROPHY 04-10-2015 NEW PROSTATE [facility] W/UR OBST & CLINIC PSC OTH LUTS 7226 DEGENERATIO 04-01-2015 ADVANCED N TECHNOLOGIE INTERVERTEB S INC RAL DISC SITE UNSPEC 13568 POSTLAMINEC 04-01-2015 [facility] SYNDROME INC CERVICAL REGION V571 OTHER 04-01-2015 [facility] PHYSICAL [facility] THERAPY INC 74426 DEGEN 03-24-2015 VIJAY GARLAND LUMBAR/LUMB OSACRAL INTERVERTEB RAL DISC 37304 POSTLAMINEC 03-24-2015 VIJAY HOBSON MD SYNDROME LUMBAR REGION 7244 THORACIC/ELEONORA 03-24-2015 VIJAY BUSTOS MD NEURITIS/RA DICULITIS UNSPEC 7231 CERVICALGIA 02-24-2015 [facility] 7840 HEADACHE 02-24-2015 [facility] 7224 DEGENERATIO 01-16-2015 NEURODIAGNO N OF STICS INC CERVICAL INTERVERTEB RAL DISC 60409 MIGRAINE 12-03-2014 [facility] W/O HOSPITAL INTRACTBL W/STATUS MIGRAINOSUS 4010 ESSENTIAL 12-03-2014 [facility] N, MALIGNANT 5849 ACUTE 12-03-2014 [place] [facility] FAILURE UNSPECIFIED 7820 DISTURBANCE 12-03-2014 [facility] SENSATION 61548 NAUSEA WITH 12-03-2014 [facility] V1255 PERSONAL 12-03-2014 [facility] PULMONARY EMBOLISM V4573 ACQUIRED 12-03-2014 [facility] KIDNEY V1046 PERSONAL 11-26-2014 NEW HISTORY [facility] MALIG[facility]NT CLINIC PSC NEOPLASM PROSTATE V1052 PERSONAL 11-26-2014 NEW HISTORY OF [facility] MALIGNANT CLINIC PSC NEOPLASM OF KIDNEY 0010 CHOLERA DUE 10-28-2014 [facility] CHOL[facility] LABORATO 305.1 305.1 10-12-2013 [facility] TOBACCO USE [facility] DISORDER [facility] 401.9 401.9 10-12-2013 [facility] NOS Hospital 491.22 491.22 10-12-2013 [facility] OBSTRUCTIVE [facility] CHRONIC [facility] BRONCHITIS WITH ACUTE BRONCHITIS 466.0 466.0 ACUTE 01-31-2013 [facility] BRONCHITIS [facility] V12.52 V12.52 01-31-2013 [facility] HX-THROMBOP [facility] HLEBITIS [facility] 250.00 250.00 DIAB 01-13-2013 [facility], TYPE Hospital II OR UNSPEC TYPE, NOT UNCNTRLD 601.0 601.0 ACUTE 01-13-2013 [facility] PROSTATITIS [facility] 7242 LUMBAGO 08-25-2012 [facility] 06426 CHEST PAIN 08-25-2012 [facility] UNSPECIFIED V5861 LONG-TERM 08-25-2012 [facility] (CURRENT) PHYSICIANS USE OF LA ANTICOAGULA NTS 23295 OBSTRUCTIVE 08-09-2012 [facility] SLEEP HOME APNEA MEDICAL EQUIPME 3689 UNSPECIFIED 08-09-2012 [facility] PLEURAL HOME EFFUSION MEDICAL EQUIPME 4090 BENIGN 08-04-2012 JIM KEITH NEOPLASM OF ADRENAL GLAND 06820 HEMATURIA 08-04-2012 JIM KEITH UNSPECIFIED 6822 CELLULITIS 08-04-2012 [facility] AND ABSCESS [facility] 7078 CHRONIC 08-04-2012 [facility] ULCER OF [facility] OTHER HOSP SPECIFIED SITE 89250 OTHER 08-04-2012 [facility] POSTOPERATI [facility] VE HOSP INFECTION NEC 50450 DIAB W/O 08-03-2012 [facility] COMP TYPE I HOME [JUV] NOT MEDICAL STATED EQUIPME UNCNTRL 62035 OTHER 07-27-2012 [facility] CHRONIC PAIN 57233 INTESTINAL 06-30-2012 [facility] INFECTIONS EMERGENCY DUE SERVICES CLOSTRIDIUM DIFFICILE 5589 OTH&UNSPEC 06-30-2012 [facility] NONINFECTIO MEM HOSP US INC GASTROENTER ITIS&COLITI S 5699 UNSPECIFIED 06-30-2012 [place] DISORDER MEDICAL OF IMAGING ASS INTESTINE 5920 CALCULUS OF 06-30-2012 [facility] 54882 NAUSEA 06-30-2012 [facility] 98076 DIARRHEA 06-30-2012 [facility] 7891 HEPATOMEGAL 06-30-2012 [facility] Y MEDICAL IM[facility]ING ASS 71431 OTHER 06-27-2012 [facility] MALAISE AND PHYSICIANS FATIGUE [place] 2859 UNSPECIFIED 06-16-2012 [facility] ANEMIA 586 UNSPECIFIED 06-16-2012 [facility] RENAL FAILURE V0481 NEED 06-16-2012 [facility] PROPHYLACTI C VACCINATION &INOCULATIO N FLU 8795 OPEN WOUND 06-14-2012 [facility] OF THERAPEUTIC ABDOMINAL SER INC WALL LATERAL COMPLICATED 54268 NON-HEALING 06-14-2012 [facility] SURGICAL THERAPEUTIC WOUND NEC SER INC 66506 DIAB W/O 06-11-2012 [facility] MENTION N EMERGENCY COMP TYPE PHYS II/UNS TYPE UNCNTRL 6829 CELLULITIS 06-11-2012 [facility] [place] AND ABSCESS RADIOLOGY OF UNSPECIFIED SITE 9642 POISONING 06-11-2012 [place] BY INPATIENT ANTICOAGULA MEDICINE NTS 5939 UNSPECIFIED 06-02-2012 [facility] DISORDER OF KIDNEY AND URETER 80316 ACUTE 05-25-2012 [facility]AT[facility] FAILURE PULMONARY 37645 OTHER 05-22-2012 [facility] [place] NONSPECIFIC RADIOLOGY ABNORMAL FINDING OF LUNG FIELD 4264 RIGHT 05-21-2012 NEW [facility] PSC BLOCK 2762 ACIDOSIS 05-20-2012 [facility] PULMONARY 4011 ESSENTIAL 05-20-2012 [place] HYPERTENSIO INPATIENT N, BENIGN MEDICINE 79441 FEVER 05-20-2012 [facility] UNSPECIFIED SU[facility] EAST PULMONARY 5180 PULMONARY 05-19-2012 [facility] [place] COLLAPSE RADIOLOGY 46592 SEPSIS 05-19-2012 [facility] [place] [facility] PULMONARY 38522 OTHER ACUTE 05-18-2012 [facility]OC[facility] POSTOPERATI PSC VE PAIN V5881 FITTING AND 05-18-2012 [facility] [place] ADJUSTMENT RADIOLOGY OF VASCULAR CATHETER 0389 UNSPECIFIED 05-17-2012 [facility] 66818 ENCEPHALOPA 05-17-2012 [facility] UNSPECIFIED 13334 OTHER 05-17-2012 NEW SPECIFIED [facility]ARDI[facility] PSC DYSRHYTHMIA S 5845 ACUTE 05-17-2012 [facility] KIDNEY HOSPITAL FAILURE W/LESION TUBULAR NECROSIS 5932 ACQUIRED 05-17-2012 [facility] CYST OF HOSPITAL KIDNEY 14966 SEVERE 05-17-2012 [facility] SEPSIS HOSPITAL 9975 URINARY 05-17-2012 [facility] COMPLICATIO [facility] NS NEC 5969 UNSPECIFIED 05-16-2012 NEW DISORDER [facility] OF BLADDER CLINIC PSC V1251 PERSONAL 05-16-2012 [facility] HISTORY, THO VENOUS THROMBOSIS AND EMBOLISM V4589 OTHER 05-16-2012 [facility] POSTSURGICA THO L STATUS OTHER V7283 OTHER 05-16-2012 [facility] [place] SPECIFIED RADIOLOGY PRE-OPERATI VE EXAMINATION V7284 UNSPECIFIED 05-16-2012 NEW [facility] PRE-OPERATI CLINIC [facility] VE EXAMINATION 70702 NEOPLASM OF 04-24-2012 PODI[facility]RIC UNCERTAIN FOOT & BEHAVIOR OF ANKLE SPECI KIDNEY&URET ER 1888 MALIGNANT 04-13-2012 NEW NEOPLASM [facility] OTHER CLINIC PSC SPECIFIED SITES BLADDER 09920 OTHER 04-06-2012 [facility] PULMONARY EMBOLISM AND INFARCTION 54512 AC JOE 04-06-2012 [facility] [employer] THROMB HOLDINGS UNSPEC DEEP VES LOWER EXT V5869 LONG-TERM 04-06-2012 [facility] (CURRENT) [facility] USE OF HOSPITAL OTHER MEDICATIONS V711 OBSERVATION 04-06-2012 [facility] [place] FOR RADIOLOGY SUSPECTED MALIGNANT NEOPLASM 4168 OTHER 04-03-2012 [facility] CHRONIC [facility] PULMONARY HOSP HEART DISEASES 4280 CONGESTIVE 04-03-[address] [facility] HEART CARDIOLOGY FAILURE AT CENT UNSPECIFIED 4293 CARDIOMEGAL 04-03-2012 [facility] Y [facility] 4539 EMBOLISM 04-03-2012 [facility] AND ONCOLOGY THROMBOSIS ASSOCIATES OF UNSPECIFIED SITE 39253 OTHER 03-29-2012 [facility] DYSPNEA AND EMERGENCY [place] [address] ABNORMAL 03-29-2012 [facility] COAGULATION [facility] PROFILE HOSP 7245 UNSPECIFIED 03-20-2012 [facility] [facility] 7295 PAIN IN 03-20-2012 [facility] MEDICAL TISSUES OF GROUP, PLLC LIMB 88131 ABDOMINAL 03-20-2012 [facility] [place] PAIN OTHER RADIOLOGY SPECIFIED SITE 5859 CHRONIC 03-14-2012 HOSP KIDNEY MEDICINE DISEASE SERV @CTRL UNSPECIFIED BAP 22483 HTN CKD UNS 03-08-2012 [facility] W/CKD [facility] STAGE I HOSP THRU STAGE IV/UNS 4162 CHRONIC 03-08-2012 [facility] PULMONARY PULMONARY & EMBOLISM CRITICAL 4242 TRICUSPID 03-08-[address] [place] [facility]VE CARDIOLOGY DISORDERS AT [facility] NONRHEUMATI C 00258 CHRN VNUS 03-08-2012 [place] [facility] & SURGICAL THROMB DEEP ASSOCIATES VES PROX LOWR EXTREM 43158 OBSTRUCTIVE 03-08-2012 [facility] CHRONIC PULMONARY & BRONCHITIS CRITICAL WITHOUT EXACERBAT 62377 CHRONIC 03-08-2012 [facility] RESPIRATORY [facility] FAILURE HOSP 60505 HYPOXEMIA 03-08-2012 [facility] PULMONARY & CRITICAL V462 DEPENDENCE 03-08-2012 [facility] ON MACHINE [facility] FOR HOSP SUPPLEMENTA L OXYGEN V8541 BODY MASS 03-08-2012 [facility] INDEX [facility] 40.0-44.9 HOSP ADULT 486 PNEUMONIA, 03-02-2012 [facility] ORGANISM [facility]ERGENCY UNSPECIFIED SERVICES 5183 PULMONARY 03-02-2012 [place] EOSINOPHILI MEDICAL A IMAGING ASS 85683 OTHER 03-02-2012 [place] DISEASES OF MEDICAL LUNG NOT IMAGING ASS ELSEWHERE CLASSIFIED 7969 OTHER 03-02-2012 LABORATORY NONSPECIFIC [facility] OF ABNORMAL LINDA H FINDING 7238 OTHER 02-10-2012 [facility] SYNDROMES AFFECTING CERVICAL REGION 4619 ACUTE 02-09-2012 [facility] SINUSITIS, EMERGENCY UNSPECIFIED SERVICES 7804 DIZZINESS 01-29-2012 NEURODIAGNO AND STICPSC GIDDINESS 69340 OTHER 01-28-2012 [place] DISEASES OF MEDICAL NASAL IMAGING ASS CAVITY AND SINUSES 7842 SWELLING 01-28-2012 [place] MASS OR MEDICAL LUMP IN IMAGING ASS HEAD AND NECK 78025 ATRIAL 01-11-2012 [place] FIBRILLATIO [facility] 4519 PHLEBITIS&T 01-10-2012 [facility] ITIS OF CLINIC UNSPECIFIED SITE 4536 VENOUS EMBO 01-10-2012 [place] & THROMB [facility] VES LOWR EXTREM 80550 UNSPECIFIED 12-28-2011 [place] DIASTOLIC [facility] FAILURE 7850 UNSPECIFIED 12-28-2011 [facility] TACHYCARDIA SERVICES 3320 PARALYSIS 12-17-2011 [facility] AGITANS 2724 OTHER AND 11-30-2011 [facility] UNSPECIFIED [facility]IAN HOSP HYPERLIPIDE GONZÁLEZ 97180 DEHYDRATION 11-30-2011 [facility] 490 BRONCHITIS 11-30-2011 [facility] NOT [facility] SPECIFIED HOSP ACUTE OR CHRONIC V1089 PERSONAL 11-30-2011 [facility] HISTORY [facility] MALIGNANT HOSP NEOPLASM OTHER SITE V5866 LONG-TERM 11-30-2011 [facility] USE OF [facility] 462 ACUTE 11-29-2011 [facility] PHARYNGITIS 4871 INFLUENZA 11-29-2011 [facility] WITH OTHER RESPIRATORY MANIFESTATI ONS 00412 MUSCLE 11-29-2011 [facility] (GENERALIZE SERVICES D) 4660 ACUTE 11-18-2011 [facility] BRONCHITIS 58009 ASTHMA, 11-08-2011 [facility] UNSPECIFIED [facility]ERGENCY , SERVICES UNSPECIFIED STATUS V1559 PERSONAL 09-24-2011 [facility] OTHER [facility] INJURY 27763 UNSPECIFIED 09-19-2011 [facility] RETENTION OF URINE 3384 CHRONIC 07-29-2011 [facility] PSC 3538 OTHER NERVE 07-29-2011 [facility] PLEXUS MEDICIINE DISORDERS PSC 7210 CERVICAL 07-29-2011 [facility] SPONDYLOSIS PAIN WITHOUT MEDICIINE MYELOPATHY PSC 7232 CERVICOCRAN 07-29-2011 [facility] IAL PAIN SYNDROME MEDICIINE PSC 2449 UNSPECIFIED 07-26-2011 [facility] HYPOTHYROID [facility] ISM 5990 URINARY 07-26-2011 [place] TRA[facility] SITE NOT SPECIFIED 7241 PAIN IN 07-26-2011 [facility] [place] THORACIC RADIOLOGY SPINE 46149 OTHER CHEST 07-26-2011 [facility] 7810 ABNORMAL 07-20-2011 [facility] INVOLUNTARY MOVEMENTS 7213 LUMBOSACRAL 04-28-2011 [facility] SPONDYLOSIS MEDICIINE WITHOUT PSC MYELOPATHY 7220 DISPLCMT 04-28-2011 [facility] C[facility] INTERVERT MEDICIINE DISC PSC WITHOUT MYELOPATHY 7246 DISORDERS 04-28-2011 [facility] PAIN MEDICIINE PSC 70190 ABDOMINAL 03-16-2011 [facility]NO PAIN, STICPS GENERALIZED V7644 SPECIAL 03-04-2011 [facility] HOLDING NEOPLASM OF PROSTATE 95744 ABDOMINAL 02-26-2011 [facility] PAIN, UNSPECIFIED SITE 05768 ABDOMINAL 02-26-2011 [place] [facility] RIGHT [facility] QUADRANT 40277 ABDOMINAL 02-26-2011 [facility], [facility]UM[facility]ILIC [facility] 8628 INJR MX&UNS 02-26-2011 [place] INTRATHR [facility]OSPITAL OPN WND IN CAV 9269 CRUSHING 02-26-2011 [place] INJURY OF [facility]PEC[facility]IED [facility]OSPITAL SITE OF TRUNK 6029 UNSPECIFIED 02-18-2011 [place] DISORDER OF PROSTATE 1560 MALIGNANT 02-17-2011 [place] NEOPLASM OF [facility] GALLBLADDER 1980 SECONDARY 02-17-2011 [place] MALIGNANT [facility] NEOPLASM OF [facility] KIDNEY 7862 COUGH 02-17-2011 [facility] Allergies, Adverse Reactions, Alerts Type Allergy [...] 0 30 30 EA 24 WE Ac [place] 25 -0 -[address] [...] gm/dL ed plasma 21:10 albumin measure ment ([facility] Whole blood INR measurement (07-01-2017 21:10) Prothro [...] blood 21:10 platele t mean volume sonam Jeff Davis % = 6.9 % 1.7-9.3 complet 017 [...] Procedure DOS Code Location Performer Comment [place] [address] YNES QUICK SPINAL 7 [facility] CERVICAL W/O CONTRAST MATRL O2 CONC 1 E1390 [facility] DEL PORT 7 85%/>02 [facility] FLW RATE PRTBLE E0431 [facility] GASEOUS 7 O2 SYS RENT; FLWMTR HUMIDFR&M ASK PRTBLE E0431 [facility] GASEOUS 7 O2 SYS RENT; FLWMTR HUMIDFR&M ASK O2 CONC 1 E1390 [facility] DEL PORT 7 85%/>02 [facility]C AT [facility] [place] [address] [place] TRUE ABDOMEN & 7 MEDICAL PELVIS SERV W/O FOUNDATIO CONTRAST N MATERIAL PROTHROMB 81913 LAB [facility] LAB [facility] IN TIME 7 [email or web address] [email or web address] HOLDINGS DRUG TEST 46106 [facility] [place] [facility] 7 [facility] CHEMISTRY ANALYZERS PRTBLE E0431 [facility] GASEOUS 7 O2 SYS RENT; FLWMTR HUMIDFR&M ASK O2 CONC 1 E1390 [facility] DEL PORT 7 85%/>02 [facility] AT [facility] [place] [address] [facility] [place] SCALF ABDOMEN & 7 RADIOLOGY PELVIS W/O CONTRAST MATERIAL URNLS DIP 26208 STEPHANIE SILVA 7 [place] STICK/TAB CLINIC LET RGNT PSC AUTO W/O MICROSCOP Y CULTURE 03589 [facility] BACTERIAL 7 CLINIC CLINIC LABORATO LABORATO QUANTTATI VE COLONY COUNT URINE PRTBLE E0431 [facility] GASEOUS 7 O2 SYS RENT; FLWMTR HUMIDFR&M ASK O2 CONC 1 E1390 [facility] DEL PORT 7 85%/>02 [facility] AT [facility] FLW RATE COLLECTIO 12243 YNES LEA N VENOUS 7 PHYSICIAN BLOOD PRACTICE VENIPUNCT L URE PROTHROMB 65550 [facility] IN TIME 7 [facility] HOLDINGS HOLDINGS DRUG TEST 08062 [facility] PRSMV 7 [facility] INSTRMNT HOLDINGS HOLDINGS CHEMISTRY ANALYZERS DRUG TST G0483 [facility] DEFINITV 7 [facility] ID HOLDINGS HOLDINGS METH P DAY 22/MORE DR [place] PROTHROMB 34914 LAB [facility] LAB [facility] IN TIME 7 [facility] HOLDINGS HOLDINGS INITIAL 55037 [facility] 7 MEDICINE CARE/DAY [place] [address] [place] [address] [facility] [place] SCALF HEAD/BRAI 7 RADIOLOGY N W/O CONTRAST MATERIAL RADIOLOGI 73182 [facility] SWINEY C 7 JEROD EXAMINATI EMERGENCY ON CHEST PHYS SINGLE VIEW FRONTAL ECG 16034 [facility] SWINEY ROUTINE 7 JEROD ECG EMERGENCY W/LEAST PHYS 12 LDS I&R ONLY RADEX [address] SHOULDER 7 [facility] COMPLETE INC INC MINIMUM [address] V[address] RAD[address] SPINE 7 [facility] CERVICAL INC INC 2 OR 3 VIEWS ECG 74816 ARIANA VERDUGO ROUTINE 7 [facility] W/LEAST P 12 LDS I&R ONLY DUP-SCAN 34664 [place] DAG[place]ERT[place] XTR VEINS 7 MEDICAL IMAGING [place] ASS L/LIMITED STUDY PROTHROMB 92547 LAB [facility] LAB [facility] IN TIME 7 [facility] HOLDING PROTHROMB 67056 LAB [facility] LAB [facility] IN TIME 7 [facility] HOLDINGS HOLDINGS COLLECTIO 14068 YNES Ma VENOUS 7 PHYSICIAN BLOOD [place] [address] LAB [facility] THYROID 7 [facility] STIMULATI HOLDINGS [place] [address] LAB [facility] LAB [facility] THYROXINE 7 [facility] TOTAL HOLDINGS HOLDINGS URNLS DIP 26511 STEPHANIE SILVA 7 [place] STICK/TAB CLINIC LET RGNT PSC AUTO W/[place] [address] LIPASE 7 [facility] INC INC URNLS DIP [address] 7 [facility] STICK/TAB INC INC LET REAGENT AUTO MICROSCOP Y PROTHROMB [address] IN TIME 7 [facility] INC INC BLOOD [address] COUNT 7 [facility] COMPLETE INC INC AUTO&[place] [address] ARI[place] ARIANA ABDOMEN & 7 [facility] PELVIS INC INC W/O CONTRAST MATERIAL COMPREHEN [address] SIVE 7 [facility] METABOLIC INC INC PANEL CYSTOURET 96172 [facility] HROSCOPY 6 [facility] PSC PSC E-STIM G0283 [place] 1/> AREAS 6 [facility] WND CARE PART TX PLAN THERAPEUT 53297 [place] 1/> 6 [facility] EACH 15 MIN EXERCISES THERAPEUT 95844 [place] 1/> 6 [facility] EACH 15 MIN EXERCISES E-STIM G0283 [place] 1/> AREAS 6 [facility] WND CARE PART TX PLAN E-STIM G0283 [place] 1/> AREAS 6 [facility] WND CARE PART TX PLAN THERAPEUT 74439 [place] 1/> 6 [facility] EACH 15 MIN EXERCISES PHYSICAL 42563 [place] THERAPY 6 [facility] N E-STIM G0283 [place] 1/> AREAS 6 [facility] WND CARE PART TX PLAN BLOOD [address] COUNT 6 [facility] COMPLETE INC INC AUTO&[place] [address] THYROXINE 6 [facility] TOTAL INC INC THYROID [address] HORM 6 [facility] UPTK/THYR INC [place] [address] THYROID 6 [facility] STIMULATI INC INC NG HORMONE TSH COLLECTIO [address] N VENOUS 6 [facility] BLOOD INC INC VENIPUNCT URE COMPREHEN [address] SIVE 6 [facility] METABOLIC INC INC PANEL DRAINAGE [id number] [address] OF NECK 6 [facility] SKIN INC INC EXTERNAL THROMBOPL 34269 [facility] ASTIN 6 N N TIME COMMUNTIY COMMUNTIY PARTIAL HOSPITA HOSPITA PLASMA/WH OLE BLOOD US SOFT 97352 [facility] TISSUE 6 N N HEAD & COMMUNTIY COMMUNTIY NECK REAL HOSPITA HOSPITA TIME IMGE DOCM COLLECTIO 65577 [facility] N VENOUS 6 N N BLOOD COMMUNTIY COMMUNTIY VENIPUNCT HOSPITA HOSPITA URE PROTHROMB 58381 [facility] IN TIME 6 N N COMMUNTIY COMMUNTIY HOSPITA HOSPITA BLOOD 38436 [facility] COUNT 6 N N COMPLETE COMMUNTIY COMMUNTIY AUTO&AUT[place] [address] [facility] MAXILLOFA 6 N N CIAL W/O COMMUNTIY COMMUNTIY CONTRAST HOSPITA HOSPITA MATERIAL CV STRS 53223 [facility] TST [address] [place] [address] XERS&/OR RX CONT ECG TRCG ONLY INJECTION [id number] [address] [place] 0.1 MG TECHNETIU A9502 [facility] TC-99M [address] [place] [address] TETROFOSM IN DX PER STUDY DOSE MYOCARDIA 03872 [facility] L SPECT [address] [place] [address] MULTIPLE STUDIES US SOFT 19473 [facility] TISSUE 6 NOSTICS HEAD & INC NECK REAL TIME IMGE DOCM MRI ORBIT 85368 [facility] FACE & 6 NOSTICS NECK W/O INC & W/[place] [address] [facility] ABDOMEN & 6 REGIONAL LD IV ALL PELVIS IMAGING W/O L CONTRST 1/> BODY RE XENON A9558 CHRISTIAN CHRISTIAN XE-133 6 [facility] GAS [facility] DIAGNOSTI C PER 10 MILLICURI ES TECHNETIU A9540 CHRISTIAN CHRISTIAN M TC-99M 6 [facility] MAA DX [facility] STDY DOSE UP TO 10 MCI PULMONARY 25664 CHRISTIAN CHRISTIAN 6 [facility] HEALTH VENTILATI [facility] ON & PERFUSION IMAGING RADIOLOGI 23456 CHRISTIAN CHRISTIAN C EXAM 6 [facility] CHEST 2 [facility] VIEWS FRONTAL&[place] [address] CHRISTIAN CHRISTIAN TRACT 6 [facility] HEALTH UPPER [facility] W/WO DELAYED IMAGES W/KUB NEBULIZER E0570 [facility] WITH 6 COMPRESSO R ECG 72036 PEPE NEVAREZ NEVAREZ PEPE ROUTINE 5 MD ECG CONSULTIN W/LEAST G SRV 12 LDS W/I&R ECHO 02232 PEPE NEVAREZ NEVAREZ PEPE TTHRC R-T 5 2D CONSULTIN W/WOM-MOD G SRV E COMPL SPEC&COLR D RADIOLOGI [address] C EXAM 5 [facility] CHEST 2 INC INC VIEWS FRONTAL&L ATERAL BLOOD [address] COUNT 5 [facility] COMPLETE INC INC AUTO&AUTO DIFRNTL WBC ECG [address] ROUTINE 5 [facility] ECG INC INC W/LEAST 12 LDS TRCG ONLY W/O I&[place] [address] TROPONIN 5 [facility] QUANTITAT INC INC JOANIE NATRIURET [address] IC 5 [facility] PEPTIDE INC INC PROTHROMB [address] IN TIME 5 [facility] INC INC CREATINE [address] KINASE MB 5 [facility] FRACTION INC INC ONLY CREATINE [address] KINASE 5 [facility] TOTAL INC INC RADIOLOGI 85181 ARIANA Daniel 5 [facility] EXAMINATI INC INC ON CHEST SINGLE VIEW FRONTAL COMPREHEN 79425 ARIANA GARCIAE 5 [facility] METABOLIC INC INC BANNER 21988 [facility] 5 JEROD CELINA IGN DAY PHYSICIAN MANAGEMEN SERVI T > 30 MIN SBSQ 20692 [facility] 5 JEROD CELINA IGN CARE/DAY PHYSICIAN 25 SERVI MINUTES SBSQ 69997 [facility] 5 JEROD CELINA IGN CARE/DAY PHYSICIAN 25 SERVI MINUTES INITIAL 84156 [facility] 5 JEROD A GOP CARE/DAY PHYSICIAN 70 SERVI MINUTES ECG 68516 [facility] 5 JEROD A GOP ECG PHYSICIAN W/LEAST SERVI 12 LDS I&R ONLY CYSTOURET 00377 STEPHANIE SILVA HROSCOPY 5 [facility] PSC PHYSICAL [address] THERAPY 5 [facility] EVALUATIO INC INC N APPL [address] MODALITY 5 [facility] 1/> AREAS INC INC ELEC STIMJ UNATTENDE D APPLICATI [address] ON 5 [facility] MODALITY INC INC 1/> AREAS HOT/COLD PACKS APPL [address] MODALITY 5 [facility] 1/> AREAS INC INC ULTRASOUN D EA 15 MIN URNLS DIP 15843 STEPHANIE SILVA 5 [place] JUS STICK/TAB CLINIC LET RGNT PSC AUTO W/O MICROSCOP Y THERAPEUT [address] IC PX 1/> 5 [facility] AREAS INC INC EACH 15 MIN EXERCISES APPL [address] MODALITY 5 [facility] 1/> AREAS INC INC ULTRASOUN D EA 15 MIN [address]ATI [address] ON 5 [facility] MODALITY INC INC 1/> AREAS HOT/COLD PACKS APPL [address] MODALITY 5 [facility] 1/> AREAS INC INC ELEC STIMJ UNATTENDE D APPL [address] MODALITY 5 [facility] 1/> AREAS INC INC ELEC STIMJ UNATTENDE D APPLICATI [address] ON 5 [facility] MODALITY INC INC 1/> AREAS HOT/COLD PACKS APPL [address] MODALITY 5 [facility] 1/> AREAS INC INC ULTRASOUN D EA 15 MIN [address]APEUT [address] IC PX 1/> 5 [facility] AREAS INC INC EACH 15 MIN EXERCISES THERAPEUT [address] IC PX 1/> 5 [facility] AREAS INC INC EACH 15 MIN EXERCISES ORTHOTIC 91313 ARIANA ARIANA MGMT&IKE 5 [facility] [place] UXTR INC INC LXTR&/TRN K EA [address] ON 5 [facility] MODALITY INC INC 1/> AREAS HOT/COLD PACKS APPL 92942 ARIANA ARIANA MODALITY 5 [facility] 1/> AREAS INC INC ELEC STIMJ UNATTENDE D LUMB L0627 [facility] 5 TECHNOLOG TECHNOLOG SAGIT IES INC IES INC CNTRL RIGID A&P PANEL PREFAB APPL 46056 ARIANA ARIANA MODALITY 5 [facility] 1/> AREAS INC INC ELEC STIMJ UNATTENDE D APPL 99123 ARIANA ARIANA MODALITY 5 [facility] 1/> AREAS INC INC ULTRASOUN D EA 15 MIN THERAPEUT 75535 ARIANA ARIANA IC PX 1/> 5 [facility] AREAS INC INC EACH 15 MIN EXERCISES THERAPEUT 27984 ARIANA ARIANA IC PX 1/> 5 [facility] AREAS INC INC EACH 15 MIN EXERCISES APPL [address] MODALITY 5 [facility] 1/> AREAS INC INC ULTRASOUN D EA 15 MIN APPL [address] MODALITY 5 [facility] 1/> AREAS INC INC ELEC STIMJ UNATTENDE D APPL [address] MODALITY 5 [facility] 1/> AREAS INC INC ELEC STIMJ UNATTENDE D APPLICATI [address] ON 5 [facility] MODALITY INC INC 1/> AREAS HOT/COLD PACKS APPL [address] MODALITY 5 [facility] 1/> AREAS INC INC ULTRASOUN D EA 15 MIN THERAPEUT [address] IC PX 1/> 5 [facility] AREAS INC INC EACH 15 MIN EXERCISES THERAPEUT [address] IC PX 1/> 5 [facility] AREAS INC INC EACH 15 MIN EXERCISES APPL [address] MODALITY 5 [facility] 1/> AREAS INC INC ULTRASOUN D EA 15 MIN APPLICATI [address] ON 5 [facility] MODALITY INC INC 1/> AREAS HOT/COLD PACKS APPL [address] MODALITY 5 [facility] 1/> AREAS INC INC ELEC STIMJ UNATTENDE D APPL [address] MODALITY 5 [facility] 1/> AREAS INC INC ELEC STIMJ UNATTENDE D APPL [address] MODALITY 5 [facility] 1/> AREAS INC INC ULTRASOUN D EA 15 MIN [address]APEUT [address] IC PX 1/> 5 [facility] AREAS INC INC EACH 15 MIN EXERCISES THERAPEUT [address] IC PX 1/> 5 [facility] AREAS INC INC EACH 15 MIN EXERCISES APPL [address] MODALITY 5 [facility] 1/> AREAS INC INC ULTRASOUN D EA 15 MIN APPL [address] MODALITY 5 [facility] 1/> AREAS INC INC ELEC STIMJ UNATTENDE D APPL [address] MODALITY 5 [facility] 1/> AREAS INC INC ELEC STIMJ UNATTENDE D APPL [address] MODALITY 5 [facility] 1/> AREAS INC INC ULTRASOUN D EA 15 MIN THERAPEUT [address] IC PX 1/> 5 [facility] AREAS INC INC EACH 15 MIN EXERCISES THERAPEUT [address] IC PX 1/> 5 [facility] AREAS INC INC EACH 15 MIN EXERCISES APPL [address] MODALITY 5 [facility] 1/> AREAS INC INC ULTRASOUN D EA 15 [address] MODALITY 5 [facility] 1/> AREAS INC INC ELEC STIMJ UNATTENDE D APPLICATI [address] ON 5 [facility] MODALITY INC INC 1/> AREAS HOT/COLD PACKS APPL [address] MODALITY 5 [facility] 1/> AREAS INC INC ELEC STIMJ UNATTENDE D APPL [address] MODALITY 5 [facility] 1/> AREAS INC INC ULTRASOUN D EA 15 MIN [address]UT [address] IC PX 1/> 5 [facility] AREAS INC INC EACH 15 MIN EXERCISES THERAPEUT [address] IC PX 1/> 5 [facility] AREAS INC INC EACH 15 MIN EXERCISES APPL [address] MODALITY 5 [facility] 1/> AREAS INC INC ULTRASOUN D EA 15 [address] APPL [address] MODALITY 5 [facility] 1/> AREAS INC INC ELEC STIMJ UNATTENDE D MRI 38809 NEURODIAG [place] SPINAL 5 NOSTICS [place] CANAL INC CERVICAL W/O CONTRAST MATRL THERAPEUT [address] IC PX 1/> 5 [facility] AREAS INC INC EACH 15 MIN EXERCISES APPL [address] MODALITY 5 [facility] 1/> AREAS INC INC ELEC STIMJ UNATTENDE D APPL [address] MODALITY 5 [facility] 1/> AREAS INC INC ULTRASOUN D EA 15 MIN APPLICATI [address] ON 5 [facility] MODALITY INC INC 1/> AREAS HOT/COLD PACKS APPL [address] MODALITY 5 [facility] 1/> AREAS INC INC ULTRASOUN D EA 15 MIN APPL [address] MODALITY 5 [facility] 1/> AREAS INC INC ELEC STIMJ UNATTENDE D THERAPEUT [address] IC PX 1/> 5 [facility] AREAS INC INC EACH 15 MIN EXERCISES THERAPEUT [address] IC PX 1/> 5 [facility] AREAS INC INC EACH 15 MIN EXERCISES APPL [address] MODALITY 5 [facility] 1/> AREAS INC INC ULTRASOUN D EA 15 MIN MANUAL [address] THERAPY 5 [facility] TQS 1/> INC INC REGIONS EACH 15 MINUTES MANUAL [address] THERAPY 5 [facility] TQS 1/> INC INC REGIONS EACH [address]ES APPL [address] MODALITY 5 [facility] 1/> AREAS INC INC ULTRASOUN D EA 15 MIN APPLICATI [address] ON 5 [facility] MODALITY INC INC 1/> AREAS HOT/COLD PACKS APPL [address] MODALITY 5 [facility] 1/> AREAS INC INC ELEC STIMJ UNATTENDE D THERAPEUT [address] IC PX 1/> 5 [facility] AREAS INC INC EACH 15 MIN EXERCISES THERAPEUT [address] IC PX 1/> 5 [facility] AREAS INC INC EACH 15 MIN EXERCISES APPL [address] MODALITY 5 [facility] 1/> AREAS INC INC ELEC STIMJ UNATTENDE D APPLICATI [address] ON 5 [facility] MODALITY INC INC 1/> AREAS HOT/COLD PACKS APPL [address] MODALITY 5 [facility] 1/> AREAS INC INC ULTRASOUN D EA 15 MIN APPL [address] MODALITY 5 [facility] 1/> AREAS INC INC ELEC STIMJ UNATTENDE D PHYSICAL [address] THERAPY 5 [facility]OS[facility] EVALUATIO INC INC N THERAPEUT [address] IC PX 1/> 5 [facility] AREAS INC INC EACH 15 MIN EXERCISES CYSTOURET 29619 STEPHANIE SILVA HROSCOPY 5 [facility] PSC URNLS DIP 95452 STEPHANIE SILVA [address] [place] [address] JUS STICK/TAB CLINIC LET RGNT PSC AUTO W/[place] [address] STEPHANIE SILVA PROSTATE 5 [place] [facility] JUS SPECIFIC CLINIC ANTIGEN PSC TOTAL COLLECTIO 40811 STEPHANIE SILVA N VENOUS 5 [facility] [facility] JUS BLOOD CLINIC VENIPUNCT PSC URE CYTP 93454 STEPHANIE ERNST FRANDY SLCTV 5 [facility] RUN CELL CLINIC ENHANCEME PSC NT INTERPJ XCPT C/V SMR PRIM 36658 [facility] SRC 5 CLINIC CLINIC GRAM/GIEM LABORATO LABORATO SA STAIN BCT FUNGI/LEODAN L CUL BACT 50785 [facility] XCPT 5 CLINIC CLINIC URINE LABORATO LABORATO BLOOD/STO OL AEROBIC ISOL COLLECTIO 93904 COMBINED COMBINED N VENOUS 2 PHYSICIAN PHYSICIAN BLOOD S LA S LA VENIPUNCT URE PROTHROMB 67095 COMBINED COMBINED IN TIME 2 PHYSICIAN PHYSICIAN S LA S LA CONTINUOU E0601 [facility] COP[facility] S 2 HOME HOME POSITIVE MEDICAL MEDICAL AIRWAY EQUIPME EQUIPME PRESSURE DEVICE NONCOVERE A9270 [facility] D ITEM OR 2 [facility] COMPREHEN 71504 [facility] SIVE 2 [facility] METABOLIC [facility]P HOSP PANEL PROTHROMB 79930 [facility] IN TIME 2 [facility] HOSP URNLS DIP 47165 [facility]AL 2 [facility] STICK/TAB HOSP HOSP LET REAGENT AUTO MICROSCOP Y COLLECTIO 30884 [facility] N VENOUS 2 [facility] BLOOD HOSP HOSP VENIPUNCT URE BLOOD 64819 [facility] COUNT 2 [facility] COMPLETE HOSP HOSP AUTO&[place] [address] [facility] ABDOMEN & 2 [facility] PELVIS HOSP HOSP W/O CONTRAST MATERIAL O2 CONC 1 E1390 ABD[facility] COPPOLA DEL PORT 2 HOME HOME 85%/>02 MEDICAL MEDICAL CONC AT EQUIPME EQUIPME PRSC FLW RATE PRTBLE E0431 [facility] GASEOUS 2 HOME HOME O2 SYS MEDICAL MEDICAL RENT; EQUIPME EQUIPME FLWMTR HUMIDFR&M ASK HEMOGLOBI 70578 [facility] MUR N 2 GLYCOSYLA CORTNEY A1C ADMN SET A7003 YOUR YOUR SM VOL 2 PHARMACY PHARMACY NONFILTR PNEUMAT NEBULIZR DISPBL URNLS DIP 55109 [facility] 2 [place] JR THO STICK/TAB [...] AT EQUIPME EQUIPME PRSC FLW RATE THERAPEUT [address] IC 2 [facility]OS[facility] INJECTION INC INC IV PUSH EACH NEW DRUG THER [address] PROPH/DX 2 [facility] NJX IV INC INC PUSH SINGLE/1S T SBST/[place] [address] [facility] ABDOMEN & 2 MEDICAL STEFF PELVIS IMAGING W/O ASS CONTRAST MATERIAL BLOOD [address] COUNT 2 [facility] COMPLETE INC INC AUTO&[place] [address] AMYLASE 2 [place] [address] LIPASE 2 [facility] INC INC INJECTION J2405 [address] [facility] ONDANSETR INC INC ON HCL PER 1 MG CUL BACT [address] STOOL 2 [facility] AEROBIC INC INC ISOL SALMONELL A&SHIGELL URNLS DIP [address] 2 [facility] STICK/TAB INC INC LET REAGENT AUTO MICROSCOP Y PROTHROMB [address] IN TIME 2 [facility] INC INC COMPREHEN [address] SIVE 2 [facility] [place] [address] ARI[place] ARIANA CLOSTRIDI 2 MEM HOS[facility] UM INC INC DIFFICILE TOXIN 3D 84364 NIKA ARENAS RENDERING 2 MEDICAL STEFF IMAGING W/INTERP& ASS POSTPROC DIFF WORK STATION PROTHROMB 59582 COMBINED COMBINED IN TIME 2 PHYSICIAN PHYSICIAN S LA S LA POTASSIUM 53814 COMBINED COMBINED SERUM 2 PHYSICIAN PHYSICIAN PLASMA/WH S LA S LA OLE BLOOD COLLECTIO 72078 COMBINED COMBINED N VENOUS 2 PHYSICIAN PHYSICIAN BLOOD S LA S LA VENIPUNCT URE URNLS DIP 68828 [facility]IN[facility] LET RGNT PSC AUTO W/O MICROSCOP Y PROTHROMB 37875 COMBINED COMBINED IN TIME 2 [place] [address] INFUSION 2 [facility] THERAPY/P INC INC ROPHYLAXI S /DX 1ST TO [address] IC 2 [facility] INJECTION INC INC IV PUSH EACH NEW DRUG BASIC 04052 COMBINED COMBINED METABOLIC 2 PHYSICIAN PHYSICIAN PANEL [place] CALCIUM TOTAL COMPREHEN 28835 COMBINED COMBINED SIVE 2 PHYSICIAN PHYSICIAN METABOLIC [place] PANEL BLOOD 44192 COMBINED COMBINED COUNT 2 PHYSICIAN PHYSICIAN COMPLETE S [place] S LA AUTO&AUTO DIFRNTL WBC COLLECTIO 66589 COMBINED COMBINED N VENOUS 2 PHYSICIAN PHYSICIAN [...] VOL 2 PHARMACY PHARMACY NONFILTR PNEUMAT NEBULIZR [facility] 03982 [facility] 2 INPATIENT ALI DAY MEDICINE MANAGEMEN T > 30 MIN SBSQ 96956 [facility] 2 INPATIENT ALI CARE/DAY MEDICINE 25 MINUTES SBSQ 58898 [facility] 2 INPATIENT ALI CARE/DAY MEDICINE 35 MINUTES RADIOLOGI 71748 [facility] [place] IRVIN C 2 RADIOLOGY RAY EXAMINATI ON CHEST SINGLE VIEW FRONTAL INITIAL 38615 [facility] 2 INPATIENT ALI CARE/DAY MEDICINE 70 MINUTES [...] AT EQUIPME EQUIPME PRSC FLW RATE SBSQ 48919 [facility] 2 Y THO CARE/DAY ASSOCIATE 15 S MINUTES SBSQ 56280 [facility] 2 SUZANNE GRA CARE/DAY EAST 25 PULMONARY MINUTES SBSQ 76118 [facility] 2 INPATIENT CARE/DAY MEDICINE 25 MINUTES SBSQ 18660 [facility] 2 [facility] CARE/DAY EAST 35 PULMONARY MINUTES SBSQ 55140 [facility] 2 [facility] CARE/DAY EAST 35 PULMONARY MINUTES SBSQ 27043 [facility] 2 INPATIENT CARE/DAY MEDICINE 25 MINUTES CRITICAL 56321 [facility] 2 SUZANNE GRA ILL/INJUR EAST ED PULMONARY PATIENT INIT 30-74 MIN SBSQ 63510 [facility] 2 INPATIENT CARE/DAY MEDICINE 25 MINUTES RADIOLOGI 48306 [facility] RHETT ELLISE C 2 RADIOLOGY LD IV A EXAMINATI ON CHEST SINGLE VIEW FRONTAL RADIOLOGI 73176 [facility] RADIOLOGY LD IV A EXAMINATI ON CHEST SINGLE VIEW FRONTAL SBSQ 89913 [facility] 2 [facility] CARE/DAY EAST 35 PULMONARY MINUTES SBSQ 10717 [facility] 2 INPATIENT CARE/DAY MEDICINE 25 MINUTES SBSQ 50798 [facility] 2 INPATIENT CARE/DAY MEDICINE 25 MINUTES CRITICAL 32511 [facility] 2 SUZANNE ANA ILL/INJUR EAST ED PULMONARY PATIENT INIT 30-74 MIN SBSQ 16566 [facility] ASSOC[facility]ATE 35 S MINUTES RADIOLOGI 77466 [facility] RHETT SANDOVAL C 2 RADIOLOGY III KEITH EXAMINATI ON CHEST SINGLE VIEW FRONTAL ECG 40199 [facility] ROUTINE 2 [facility] ECG CLINIC W/LEAST PSC 12 LDS I&R ONLY RADIOLOGI 37210 [facility] RHETT SANDOVAL C 2 RADIOLOGY III KEITH EXAMINATI ON CHEST SINGLE VIEW FRONTAL CRITICAL 02521 [facility] 2 SUZANNE ANA ILL/INJUR EAST ED PULMONARY PATIENT INIT 30-74 MIN SBSQ 57849 [facility] 2 INPATIENT CARE/DAY MEDICINE [address] [facility] 2 INPATIENT ARU CARE/DAY MEDICINE 25 MINUTES CRITICAL 88845 [facility] CARE 2 SUZANNE ILL/INJUR EAST ED PULMONARY PATIENT INIT 30-74 MIN RADIOLOGI 17858 [facility] [place] RONAL[place] C 2 RADIOLOGY STEPHANY EXAMINATI ON CHEST SING[place] VIEW FRONTAL SBSQ 59630 NEPHROLOG [facility] 2 Y [place] CARE/DAY ASSOCIATE [address] [facility] 2 INPATIENT ARU CARE/DAY MEDICINE 35 MINUTES RADIOLOGI 69720 [facility] [place] [facility] C 2 RADIOLOGY EXAMINATI ON CHEST [place] FRONTAL [facility]IAL 8[facility]14 [facility]/DAY ASSOCIATE 70 S MINUTES DAILY 20525 [facility] 2 A [facility] ASSOCIATE EDRL/PAULETTE S PSC CH CONT DRUG ADMN CRITICAL 08926 [facility] 2 SUZANNE SAWYER ILL/INJUR [facility] ED PULMONARY PATIENT INIT 30-74 MIN CENTRAL [address] CATHETER PLACEMENT WITH GUIDANCE ARTERIAL 3891 [facility] CATHETERI [address] [place] [address] ZATION CONT 9672 [facility] INVASIVE [address] [place] [address] MECH VENT 96 CONSECUTI VE HRS/MORE INSERTION 9604 [facility] OF [address] [place] [address] ENDOTRACH EAL TUBE INSJ 27343 [facility] NON-TUNNE 2 SUZANNE SAWYER LED [facility] CENTRAL PULMONARY VENOUS CATH AGE 4 YR/> ARTL 59072 [facility] CATHJ/CAN 2 SUZANNE [facility]YER [facility] MN[facility]/[place] [address] [facility] [place] RETROPERI 2 RADIOLOGY RAY TONEAL REAL TIME W/IMAGE LIMITED ECG 05367 STEPHANIE SESAY FRANDY ROUTINE 2 [address] ECG CLINIC W/LEAST PSC 12 LDS I&R ONLY ANES 33973 ANESTHESI CIFUENTES LAR XTRPRTL 2 A LOWER ABD ASSOCIATE UR TRACT S PSC RENAL DON NFRCT NJXS 88657 ANESTHESI VANCE INFUS/MAITE 2 A SCO US ASSOCIATE DX/SBST S PSC EDRL/SU[place] [address] NEW WILHELMUS SURG [address] [facility]RA PATHOLOGY CLINIC PSC GROSS&MIGUEL ROSCOPIC EXAM NEPHRECTO 44774 [facility] 2 [place] THO PARTIAL CLINIC PSC PARTIAL 554 [facility] 2 [facility] MY INITIAL [address] [facility] 2 INPATIENT ARU CARE/DAY MEDICINE 70 MINUTES ECG 96262 [facility] 2 DICKERSON RUN MAT ECG CLINIC W/LEAST PSC 12 LDS I&R ONLY RADIOLOGI 22948 [facility] [place] CARINA MAT C EXAM 2 RADIOLOGY CHEST 2 VIEWS FRONTAL&L ATERAL O2 CONC 1 E1390 ABDON COPPOLA DEL PORT 2 HOME HOME 85%/>02 MEDICAL MEDICAL CONC AT EQUIPME EQUIPME PRSC FLW RATE PRTBLE E0431 ABDON COPPOLA GASEOUS 2 HOME HOME O2 SYS MEDICAL MEDICAL RENT; EQUIPME EQUIPME FLWMTR HUMIDFR&M ASK PROTHROMB 44401 COMBINED COMBINED IN TIME 2 PHYSICIAN PHYSICIAN S LA S LA COLLECTIO 54679 COMBINED COMBINED N VENOUS 2 PHYSICIAN PHYSICIAN BLOOD S LA S LA VENIPUNCT URE URNLS DIP 54041 POD[facility]ATRIC [facility] 2 FOOT & JR THO STICK/TAB ANKLE LET RGNT SPECI AUTO W/O MICROSCOP Y HEMOGLOBI 76377 [facility] N 2 GLYCOSYLA CORTNEY A1C PROTHROMB 82975 COMBINED COMBINED IN TIME 2 PHYSICIAN PHYSICIAN S LA S LA COLLECTIO 95321 COMBINED COMBINED N VENOUS 2 PHYSICIAN PHYSICIAN BLOOD S LA S LA VENIPUNCT URE COLLECTIO 31059 COMBINED COMBINED N VENOUS 2 PHYSICIAN PHYSICIAN BLOOD S LA S LA VENIPUNCT URE PROTHROMB 40560 COMBINED COMBINED IN TIME 2 PHYSICIAN PHYSICIAN S LA S LA URNLS DIP 25566 [facility] 2 [place] THO STICK/TAB CLINIC LET PSC REAGENT AUTO MICROSCOP Y PROTHROMB 55047 COMBINED COMBINED IN TIME 2 PHYSICIAN PHYSICIAN S LA S LA COLLECTIO 49131 COMBINED COMBINED N VENOUS 2 PHYSICIAN PHYSICIAN BLOOD S LA S LA VENIPUNCT URE COLLECTIO 41034 COMBINED COMBINED N VENOUS 2 PHYSICIAN PHYSICIAN BLOOD S LA S LA VENIPUNCT URE PROTHROMB 91373 COMBINED COMBINED IN TIME 2 PHYSICIAN PHYSICIAN S LA S LA PROTHROMB 65094 COMBINED COMBINED IN TIME 2 PHYSICIAN PHYSICIAN S LA S LA COLLECTIO 14531 COMBINED COMBINED N VENOUS 2 PHYSICIAN PHYSICIAN BLOOD S LA S LA VENIPUNCT URE COLLECTIO 99837 COMBINED COMBINED N VENOUS 2 PHYSICIAN PHYSICIAN BLOOD S LA S LA VENIPUNCT URE PROTHROMB 27219 COMBINED COMBINED IN TIME 2 PHYSICIAN PHYSICIAN S LA S LA PROTHROMB 70578 COMBINED COMBINED IN TIME 2 PHYSICIAN PHYSICIAN S LA S LA URNLS DIP [address]/[facility] LET REAGENT AUTO MICROSCOP Y CYSTOURET 41813 [facility] HROSCOPY 2 FOOT & THO ANKLE SPECI COLLECTIO 32406 COMBINED COMBINED N VENOUS 2 PHYSICIAN PHYSICIAN BLOOD S LA S LA VENIPUNCT URE CLOTTING 76681 [facility] INHIBITOR 2 AMERIC AMERIC S [employer] HOLDINGS C ACTIVITY CLOTTING 85578 [facility] INHIBITOR 2 AMERIC AMERIC S [employer] S FREE CT THORAX 49861 [facility] [place] 2 RADIOLOG[place] RHO W/[place] [address] [facility] [place] ABDOMEN & 2 RADIOLOGY RHO PELVIS W/O CONTRST 1/> BODY RE COLLECTIO 91215 COMBINED COMBINED N VENOUS 2 PHYSICIAN PHYSICIAN BLOOD S LA S LA VENIPUNCT URE PROTHROMB 54686 COMBINED COMBINED IN TIME 2 PHYSICIAN PHYSICIAN S LA S LA ECHO 70932 [facility] TTHRC R-T 2 IV HEN 2D CARDIOLOG W/WOM-MOD Y AT CENT E COMPL SPEC&COLR D O2 CONC 1 E1390 ABDON COPPOLA DEL PORT 2 HOME HOME 85%/>02 MEDICAL MEDICAL CONC AT [facility]IPSC [facility] FLW RATE PRTBLE E0431 ABDON COPPOLA GASEOUS 2 HOME HOME O2 SYS MEDICAL MEDICAL RENT; EQUIPME EQUIPME FLWMTR HUMIDFR&M ASK COMPREHEN 14677 COMBINED COMBINED SIVE 2 PHYSICIAN PHYSICIAN METABOLIC S LA S LA PANEL BLOOD 08194 COMBINED COMBINED COUNT 2 PHYSICIAN PHYSICIAN COMPLETE S LA S LA AUTO&AUTO DIFRNTL WBC HEMOGLOBI 40288 COMBINED COMBINED N 2 PHYSICIAN PHYSICIAN GLYCOSYLA [place] [address] COMBINED COMBINED THYROID 2 PHYSICIAN PHYSICIAN STIMULATI [place] [address] COMBINED COMBINED FREE 2 PHYSICIAN PHYSICIAN THYROXINE S LA S LA COLLECTIO 46977 COMBINED COMBINED N VENOUS 2 PHYSICIAN PHYSICIAN BLOOD S LA S LA VENIPUNCT URE PROTHROMB 64364 COMBINED COMBINED IN TIME 2 PHYSICIAN PHYSICIAN S LA S LA PROTHROMB 66390 [facility] IN TIME 2 [facility] NATRIURET 58328 [facility] IC 2 [facility] PEPTIDE HOSP HOSP THER 37924 [facility] CEN[facility]AL PROPH/DX 2 [facility] NJX IV HOSP HOSP PUSH SINGLE/1S T SBST/DRUG RADIOLOGI 66983 [facility] C EXAM 2 [facility] CHEST 2 HOSP HOSP VIEWS FRONTAL&L ATERAL BLOOD 53121 [facility] COUNT 2 [facility] COMPLETE HOSP HOSP AUTO&AUTO DIFRNTL WBC COMPREHEN 98535 [facility]AL [facility] SIVE 2 [facility] METABOLIC HOSP HOSP PANEL NONCOVERE A9270 [facility]EN[facility]AL CENTRAL D ITEM OR 2 [facility]OSP PROTHROMB 42234 COMBINED COMBINED IN TIME 2 PHYSICIAN PHYSICIAN S LA S LA COLLECTIO 07773 COMBINED COMBINED N VENOUS 2 PHYSICIAN PHYSICIAN BLOOD S LA S LA VENIPUNCT URE COLLECTIO 24302 [facility] N VENOUS 2 [facility] VENIPUNCT URE PROTHROMB 18719 [facility] IN TIME 2 [facility] URNLS DIP 72328 [facility] 2 [facility] STICK/TAB HOSPITAL HOSPITAL LET REAGENT AUTO MICROSCOP Y BLOOD 22269 [facility] QUICK COUNT 2 [facility] COMPLETE [facility] AUTO&[place] [address] [facility] QUICK ABDOMEN & 2 [facility] PELVIS [facility] W/CONTRAS T MATERIAL THER 07109 YNES QUICK PROPH/DX 2 [facility] NJX IV [facility] PUSH SINGLE/1S T SBST/DRUG BASIC 99020 [facility] QUICK METABOLIC 2 [facility] CALCIUM TOTAL PROTHROMB 24990 COMBINED COMBINED IN TIME 2 PHYSICIAN PHYSICIAN S LA S LA COLLECTIO 85513 COMBINED COMBINED N VENOUS 2 PHYSICIAN PHYSICIAN BLOOD S LA S [facility] 2 MEDICINE DEN DAY SERV MANAGEMEN @CTRL BAP T > 30 MIN SBSQ 73811 [place] [address] MEDICINE DEN CARE/DAY SERVICES 25 MINUTES SBSQ 10210 [facility] 2 MEDICINE DEN CARE/DAY SERVICES 25 MINUTES SBSQ 38575 [facility] 2 MEDICINE DEN CARE/DAY SERVICES 35 MINUTES SBSQ 07190 [facility] 2 MEDICINE DEN CARE/DAY SERVICES 35 MINUTES SBSQ 78489 [facility] 2 MEDICINE CARE/DAY SERV 35 @CTRL BAP MINUTES SBSQ 53232 [place] [address] ONCOLOGY CARE/DAY ASSOCIATE 15 S MINUTES INITIAL 74675 [facility] 2 [facility] CARE/DAY CLINIC 50 PSC MINUTES INITIAL [address] CARE/DAY ONCOLOGY 70 A MINUTES DUP-SCAN [address] KELLY XTR VEINS 2 ANT COMPLETE CARDIOLOG Y AT CENT BILATERAL STUDY INTERRUPT 387 [facility]EN[facility]AL CENTRAL ION OF 2 [facility] CAVA ANGIOCARD 8851 CENTRAL CENTRAL IOGRAPHY 2 [facility] CAVAE INTRO 70407 [facility] CATHETER 2 THO THO SUPERIOR/ [place] 34953 SCHWARCZ SCHWARCZ INTRVAS 2 THO THO VC FILTR W/WO VAS ACS VSL SELXN RS&I VENOGRAPH 29435 [facility] SCHWARCZ Y CAVAL 2 SURGICAL THO INFERIOR ASSOCIATE SERIALOGR S APHY RS&I ECHO 05782 [facility] TTHRC R-T 2 IV HEN 2D CARDIOLOG W/WOM-MOD Y AT CENT E COMPL SPEC&[place] [address] [facility] ABDOMEN & 2 RADIOLOGY PELVIS ASSOC W/O CONTRAST MATERIAL BLOOD 59857 YNES QUICK COUNT 2 [facility] AUTO&AUTO DIFRNTL WBC CULTURE 82120 YNES QUICK BACTERIAL 2 [facility] AEROBIC W/ID ISOLATES ECG 18341 ROBBY BUSTAMANTE ROUTINE 2 EMERGENCY EMERGENCY ECG SERVICES SERVICES W/LEAST 12 LDS I&R ONLY RADIOLOGI 85783 RASHIDAGENESIS OZIELGINA C EXAM [address] VIEWS FRONTAL&L ATERAL THERAPEUT 86275 YNES LUDWIG IC 2 [facility] IV PUSH EACH NEW DRUG THERAPEUT 82935 [facility] TIC/DX INJECTION SUBQ/IM THER 37681 YNES QUICK PROPH/DX 2 [facility]PITAL PUSH SINGLE/1S T SBST/DRUG ECG 75391 YNES QUICK ROUTINE 2 [facility] W/LEAST 12 LDS TRCG ONLY W/O I&R COLLECTIO 71342 YNES QUICK N VENOUS 2 [facility] VENIPUNCT URE FIBRIN 01779 YNES QUICK DGRADJ 2 [facility] D-DIMER QUANTITAT JOANIE PROTHROMB 72095 YNES QUICK IN TIME [address] [facility] THORAX 28128 YNES QUICK 2 [facility] T MATERIAL RADIOLOGI 57994 ROBBY BUSTAMANTE C 2 EMERGENCY EMERGENCY EXAMINATI SERVICES SERVICES ON CHEST SINGLE VIEW FRONTAL THROMBOPL 33853 YNES QUICK ASTIN 2 [facility] PARTIAL PLASMA/WH OLE BLOOD COMPREHEN 99588 YNES QUICK SIVE 2 [facility] PANEL PRTBLE E0431 ABDON COPPOLA GASEOUS 2 HOME HOME O2 SYS MEDICAL MEDICAL RENT; EQUIPME EQUIPME FLWMTR HUMIDFR&M ASK O2 CONC 1 E1390 ABDON COPPOLA DEL PORT 2 HOME HOME 85%/>02 MEDICAL MEDICAL CONC AT EQUIPME EQUIPME PRSC FLW RATE THERAPEUT [address] IC 2 [facility] INJECTION [place] [address] INFUSION 2 [facility] THERAPY/P INC INC ROPHYLAXI S /DX 1ST TO [address] ED/NONPRE 2 [facility] SSURIZED INC INC INHALATIO N TREATMENT SMR PRIM [address] SRC 2 [facility] GRAM/GIEM INC INC SA STAIN BCT FUNGI/LEODAN L CULTURE [address] BACTERIAL 2 [facility] BLOOD INC INC AEROBIC W/ID ISOLATES RADIOLOGI 59938 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 2 Y MONICA OF Y MONICA OF CELL LINDA LINDA ENHANCEME H H NT INTERPJ XCPT C/V CUL BACT [address] XCPT 2 MEM H[facility] URINE INC INC BLOOD/STO OL AEROBIC ISOL BASIC [address] METABOLIC 2 MEM [facility]OSP PANEL INC INC CALCIUM TOTAL PRTBLE E0431 ABDON COPPOLA GASEOUS 2 HOME HOME O2 SYS MEDICAL MEDICAL RENT; EQUIPME EQUIPME FLWMTR HUMIDFR&M ASK O2 CONC 1 E1390 ABDON COPPOLA DEL PORT 2 HOME HOME 85%/>02 MEDICAL MEDICAL CONC AT EQUIPME EQUIPME PRSC FLW RATE MRI BRAIN 90341 NEURODIAG [place] BRAIN 2 NOSTICPSC ROL STEM W/[place] [address] [facility] D[facility]ERT[facility] HEAD/BRAI 2 MEDICAL STEFF N W/O IMAGING CONTRAST ASS MATERIAL THERAPEUT [address] IC 2 [facility] PROPHYLAC INC INC TIC/DX INJECTION SUBQ/IM 3D [address] RENDERING 2 [facility] W/INTERP INC INC & POSTPROCE SS SUPERVISI ON CT ORBIT 40426 [place] DAGOBERTO SELLA/POS 2 MEDICAL STEFF T IMAGING FOSSA/EAR ASS W/O CONTRAST MATRL COLLECTIO 94400 [place] N VENOUS 2 [facility] URE PROTHROMB 68931 [place] IN TIME 2 [facility] COLLECTIO 04273 [place] N VENOUS 2 [facility] VENIPFORMERLY [facility] URE PROTHROMB 25168 [place] IN TIME 2 [facility] RADIOLOGI 48365 [place] C EXAM [address] HOSPITAL VIEWS FRONTAL&L ATERAL DUP-SCAN 12233 [facility]. LUDIV[facility] XTR VEINS 2 SUZANNE III J COMPLETE CARDIOLOG Y CLINIC BILATERAL STUDY PRTBLE E0431 ABDON COPPOLA GASEOUS 2 HOME HOME O2 SYS MEDICAL MEDICAL RENT; EQUIPME EQUIPME FLWMTR HUMIDFR&M [facility] 45976 ROBBY NACOGDOCHES DISCHARGE 2 EMERGENCY DENISE DAY SERVICES MANAGEMEN T > 30 MIN O2 CONC 1 E1390 ABDON COPPOLA DEL PORT 2 HOME HOME 85%/>02 MEDICAL MEDICAL CONC AT EQUIPME EQUIPME PRSC FLW RATE SBSQ 27817 [facility] 2 EMERGENCY DENISE CARE/DAY SERVICES 25 MINUTES SBSQ 47627 [facility] 2 EMERGENCY DENISE CARE/DAY SERVICES 25 MINUTES SBSQ 74987 [facility] 2 EMERGENCY DENISE CARE/DAY SERVICES 25 MINUTES INITIAL 21983 [facility] 2 EMERGENCY DENISE CARE/DAY SERVICES 70 MINUTES DUP-SCAN 80798 PEPE NEVAREZ NEVAREZ PEPE XTR VEINS 2 COMPLETE CONSULTIN G SERV BILATERAL STUDY ECHO 61123 PEPE NEVAREZ NEVAREZ PEPE TTHRC R-T 2 2D CONSULTIN W/WOM-MOD G SERV E COMPL SPEC&COLR D ECG 15639 ROBBY LINDER ISIDORO ROUTINE 2 EMERGENCY ECG SERVICES W/LEAST 12 LDS I&R ONLY CT THORAX 58427 [facility] [place] 2 RADIOLOGY RAY W/CONTRAS T MATERIAL RADIOLOGI 01874 [facility] [place] MAT C 2 RADIOLOGY EXAMINATI ON CHEST SINGLE VIEW FRONTAL CRITICAL 08700 ROBBY LINDER ISIDORO CARE 2 EMERGENCY ILL/INJUR SERVICES ED PATIENT INIT 30-74 MIN COMPREHEN 38866 [facility] SIVE 2 [facility]OLIC [facility] HOSP PANEL CULTURE 85139 CEN[facility]AL [facility]TRAL BACTERIAL 2 [facility] [place]ANTTAT[place] [address] CENTRAL CENTRAL BLOOD/URI 2 [facility] C ACID HOSP HOSP BLOOD 02173 [facility]AL [facility]TR[facility] COUNT 2 [facility] COMPLETE HOSP HOSP AUTO&AUTO DIFRNTL WBC URNLS DIP 20282 CENTRAL CENTRAL 2 [facility] STICK/TAB HOSP HOSP LET REAGENT AUTO MICROSCOP Y HEMOGLOBI 50501 WEST MUR WEST MUR N 2 GLYCOSYLA CORTNEY A1C URNLS DIP 68388 WEST MUR WEST MUR 2 STICK/TAB LET RGNT NON-AUTO W/O MICRSCP IAADIADOO 60499 WEST MUR WEST MUR 2 STREPTOCO CCUS GROUP A CULTURE [address] BACTERIAL 2 [facility] BLOOD INC INC AEROBIC W/ID ISOLATES ECG 33681 ROBBY GUAN ROUTINE 2 EMERGENCY MIGUEL ECG SERVICES W/LEAST 12 LDS I&R ONLY PRESSURIZ [address] ED/NONPRE 2 [facility] SSURIZED [place] [address] INFUSION 2 [facility] THERAPY/P INC INC ROPHYLAXI S /DX 1ST TO [address] IC 2 [facility] INJECTION INC INC IV PUSH EACH NEW DRUG ECG [address] ROUTINE 2 [facility] ECG INC INC W/LEAST 12 LDS TRCG ONLY W/O I&R CREATINE [address] KINASE MB 2 MEM H[facility] FRACTION INC INC ONLY CREATINE [address] KINASE 2 MEM HOS[facility]OSP TOTAL INC INC NATRIURET [address] IC 2 [facility] [place] [address] TROPONIN 2 MEM HOSP [facility] QUANTITAT INC INC JOANIE BLOOD [address] COUNT 2 MEM [facility] MEM [facility]OSP COMPLETE INC INC AUTO&AUTO DIFRNTL WBC IAADI [address] INFLUENZA 2 [facility] B VIRUS INC INC IAADI [address] INFFLUENZ 2 MEM H[facility]OS[facility] A A VIRUS INC INC BLOOD [address] GASES ANY 2 MEM HOS[facility]OS[facility] INC INC COMBINATI ON PH PCO2 PO2 CO2 HCO3 COMPREHEN [address] SIVE 2 MEM HOS[facility] MEM HOSP METABOLIC INC INC PANEL RADIOLOGI 23071 [place] DAGOBERTO 2 MEDICAL STEFF EXAMINATI IMAGING [place] [address] YNES QUICK HEAD/BRAI 1 [facility] N W/O HOSPITAL HOSPITAL CONTRAST MATERIAL COMPREHEN [address] SIVE 1 [facility]OS[facility] METABOLIC INC INC PANEL URNLS DIP [address] 1 MEM [facility]OS[facility] STICK/TAB INC INC LET REAGENT AUTO MICROSCOP Y INSJ TEMP [address] NDWELLG 1 MEM HOS[facility]OS[facility] BLADDER INC INC CATHETER SIMPLE BLOOD [address] COUNT 1 [facility]OS[facility] COMPLETE INC INC AUTO&AUTO DIFRNTL WBC SPMTRY 36848 WEST MUR WEST MUR W/VC 1 EXPIRATOR Y HANSEL W/WO MXML VOL VNTJ FLUOROSCO 29612 ADVANCED ADVANCED PIC 1 PAIN PAIN GUIDANCE MEDICIINE MEDICIINE NEEDLE PSC PSC PLACEMENT ADD ON MULTIPLE 35469 ADVANCED ADVANCED NERVE 1 PAIN PAIN BLOCK MEDICIINE MEDICIINE INJECTION PSC PSC S RIB NERVES COMPREHEN 90547 [place] SIVE 1 [facility] PANEL LIPID 22027 [place] PANEL 1 [facility] BLOOD 02747 [place] COUNT 1 [facility] MCRSCP W/MNL DIFRNTL WBC COUNT BLOOD 44967 [place] COUNT 1 [facility] AUTOMATED RADIOLOGI 29693 [place]ASH[place] BOSOLITARIOON C EXAM 1 [facility] CHEST [address] [place] [address] HOSPITAL VIEWS FRONTAL&L ATERAL RADEX 90059 [facility] SPINE 1 [facility] THORACIC [facility] 2 VIEWS HEMOGLOBI 51769 [place] N 1 [facility] CORTNEY A1C URNLS DIP 52705 [place] 1 [facility] STICK/TAB HOSPITAL HOSPITAL LET [place] [address] [place] B[place] FREE 1 [facility] THYROXINE [facility] [place] [address] [place] B[place] THYROID 1 [facility] NG HORMONE TSH COLLECTIO 95055 [place]URB[place] N VENOUS 1 [facility] VENIPUNCT URE INJECTION J3301 ADVANCED VERDUGO 1 PAIN [place] TRIAMCINO MEDICIINE LONE PSC ACETONIDE NOS 10 MG INJECTION 70789 ADVANCED VERDUGO 1 PAIN [place] ANESTHETI MEDICIINE C AGENT PSC [facility] [place] 91746 ADVANCED VERDUGO DX/THER 1 PAIN [place] AGT PVRT MEDICIINE FACET JT PSC CRV/THRC 1 LEVEL INJECTION J3301 ADVANCED ADVANCED 1 PAIN PAIN TRIAMCINO MEDICIINE MEDICIINE LONE PSC PSC ACETONIDE NOS 10 MG NJX 73466 ADVANCED VERDUGO DX/THER 1 PAIN [place] AGT PVRT MEDICIINE FACET JT PSC CRV/THRC 2ND LEVEL NJX 86844 ADVANCED VERDUGO DX/THER 1 [place] AGT PVRT MEDICIINE FACET JT PSC CRV/THRC 3+ LEVEL LOCM Q9965 ADVANCED VERDUGO 100-199 1 PAIN [place] MG/ML MEDICIINE IODINE PSC CONCENTRA TION PER ML MODERATE 44170 ADVANCED VERDUGO SEDATJ 1 PAIN [place] SAME MEDICIINE PHYS/QHP PSC 5/>YRS INIT 30 MIN INFLUENZA Q2038 [facility] WEST MUR VACC 1 SPLIT VIRUS 3 YRS & > IM FLUZONE ADMINISTR G0008 [facility] WEST MUR ATION OF 1 INFLUENZA VIRUS VACCINE OPHTH 99034 [facility] 1 VISION XM&EVAL COMPRE NEW PT 1/> VST FLUOR 66620 ADVANCED VERDUGO NEEDLE/CA 1 PAIN [place] TH MEDICIINE SPINE/PAR PSC ASPINAL DX/THER ADDON MODERATE 97869 ADVANCED VERDUGO SEDATJ 1 [place] SAME MEDICIINE PHYS/QHP PSC 5/>YRS INIT 30 MIN NJX 84607 ADV[facility] DX/THER 1 PAIN [place] SBST MEDICIINE EPIDURAL/ PSC SUBRACH CERV/THOR ACIC INJECTION J3301 [facility] 1 PAIN [place] TRIAMCINO MEDICIINE LONE PSC ACETONIDE NOS 10 MG HEMOGLOBI 74719 [facility] MUR N 1 GLYCOSYLA CORTNEY A1C NJX 99387 [facility] DX/THER 1 PAIN [place] AGT PVRT MEDICIINE FACET JT PSC CRV/THRC 1 LEVEL NJX 81549 [facility] DX/THER 1 [place]IN [place] AGT PVRT MEDICIINE FACET JT PSC CRV/THRC 2ND LEVEL INJECTION J3301 [facility] 1 PAIN [place] TRIAMCINO MEDICIINE LONE PSC ACETONIDE NOS 10 MG NJX 65307 [facility] DX/THER 1 [place]IN [place] AGT PVRT MEDICIINE FACET JT PSC CRV/THRC 3+ LEVEL LOCM Q9965 [facility] 100-199 1 PAIN [place] MG/ML MEDICIINE IODINE PSC CONCENTRA TION PER ML MODERATE 38223 [facility] SEDATJ 1 PAIN [place] SAME MEDICIINE PHYS/QHP PSC 5/>YRS INIT 30 MIN INJECTION J1030 [facility] MUR 1 METHYLPRE DNISOLONE ACETATE 40 MG INJECTION J1100 [facility] 1 DEXAMETHO SONE SODIUM PHOSPHATE 1 MG MRI 15931 NEURODIAG [place] ABDOMEN 1 NOSTICPSC ROL W/O & W/CONTRAS T MATERIAL MRI 79432 NEURODIAG [place] SPINAL 1 NOSTICPSC ROL CANAL THORACIC W/O CONTRAST MATRL MRI 97424 NEURODIAG [place] SPINAL 1 NOSTICPSC ROL CANAL LUMBAR W/O CONTRAST MATERIAL 3D [address] RENDERING 1 [facility] W/INTERP INC INC & POSTPROCE SS SUPERVISI [place] MRI [address] SPINAL 1 [facility] CANAL INC INC CERVICAL W/O CONTRAST MATRL PROSTATE G0103 [facility] 1 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 ; PSA TEST [facility] THORAX 90260 [facility] 1 [facility] [place] [address] [facility] ABDOMEN 1 [facility] W/O HOSPITAL HOSPITAL CONTRAST MATERIAL RADIOLOGI 29786 [facility] SE[place] Daniel EXAM 1 RADIOLOGY CHEST 2 VIEWS FRONTAL&L ATERAL HEMOGLOBI 30192 [facility] N 1 [place] [address] [facility] TROPONIN 1 [facility] JOANIE NATRIURET 31484 [facility] QUICK IC 1 [facility] BLOOD 99417 [facility] QUICK COUNT 1 [facility] AUTO&AUTO DIFRNTL WBC PROTHROMB 87510 YNES QUICK IN TIME 1 [facility] FIBRIN 44024 [facility] DGRADJ [address] [facility] D-DIMER QUAL/SEMI FLACO COLLECTIO 13311 [facility] N VENOUS 1 [facility] VENIPUNCT URE RADIOLOGI 30368 [facility] C EXAM 1 [facility] CHEST [address] [place] [address] HOSPITAL VIEWS FRONTAL&L ATERAL THER 17410 [facility] PROPH/DX 1 [facility] PUSH SINGLE/1S T SBST/DRUG ECG 78378 [facility] ROUTINE 1 [facility] W/LEAST 12 LDS TRCG ONLY W/O I&R THROMBOPL 16385 [facility] ASTIN 1 [facility] PARTIAL PLASMA/WH OLE BLOOD COMPREHEN 93189 [facility] SIVE 1 [facility] PANEL Encounters Encounter Start End Date Code Location Performer Type Date HOSPITAL YNES - [address] [facility] T OFFICE 68380 [facility] 7 7 PHYSICIAN T VISIT PRACTICE 25 L MINUTES EMERGENCY 51231 ADRIANE BURKS 7 7 PHYSICIAN U [facility], [facility] T VISIT HIGH/URGE NT [facility] 7 7 [facility] [address] [facility] T OFFICE 19882 [facility] 7 7 [place] [facility] V[facility] 25 PSC MINUTES OFFICE 39440 [facility] 7 7 PHYSICIAN T VISIT PRACTICE 15 L MINUTES OFFICE 95324 [facility] OUTPATIEN 7 7 PHYSICIAN T VISIT PRACTICE 15 L MINUTES EMERGENCY 19920 [facility] DEPT 7 7 JEROD VISIT EMERGENCY HIGH PHYS SEVERITY& THREAT FUNCJ OFFICE 03404 STEPHANIE BONNER OUTPATIEN 7 7 [place] [facility] 40 PSC MINUTES [facility] 7 7 [facility] OUTPATIEN INC T OFFICE 12745 YNES TATE OUTPATIEN 7 7 PHYSICIAN T VISIT PRACTICE 15 L MINUTES OFFICE 82231 NE[facility]OLOG [facility] 7 7 Y T VISIT ASSOCIATE 25 S OF CIELO MINUTES EMERGENCY 73339 ADRIANE GOLDSMITH 7 7 PHYSICIAN DEPARTMEN S, [facility] T VISIT HIGH/URGE NT SEVERITY [facility] - 7 7 [facility] OUTPATIEN INC T OFFICE 62391 YNES TATE OUTPATIEN 7 7 PHYSICIAN T VISIT PRACTICE 15 L MINUTES OFFICE 16834 YNES TATE OUTPATIEN 7 7 PHYSICIAN T VISIT PRACTICE 15 L MINUTES OFFICE 72430 STEPHANIE SILVA OUTPATIEN 7 7 [place] [facility] 15 PSC MINUTES EMERGENCY 67907 [facility] 7 7 [facility] DEPARTMEN INC T VISIT MODERATE SEVERITY [facility] [place] - 7 7 [facility] OUTPATIEN INC T HOSPITAL YNES - 6 6 [facility] T [facility]ERGENC[facility] 07008 [facility] 6 6 [facility] STRIDE DEPARTMEN INC PROGRAM T VISIT HIGH/URGE NT SEVERITY [facility] [place] [facility] 6 6 [facility] OUTPATIEN INC T OFFICE 60799 STEPHANIE SILVA OUTPATIEN 6 6 [place] JUS T VISIT CLINIC 15 PSC MINUTES OFFICE 84586 NEPHROLOG NICKY OUTPATIEN 6 6 Y [place] T VISIT ASSOCIATE 40 S OF CIELO MINUTES HOSPITAL [facility] - 6 6 N OUTPATIEN COMMUNTIY T [facility] - 6 6 EAST OUTPATIEN T OFFICE 76089 DAPHNE DAPHNE OUTPATIEN 6 6 ANA ANA T NEW 45 MINUTES OFFICE 83645 [facility] VIOLET OUTPATI[facility] 6 6 [facility] T VISIT MEDICAL 15 G MINUTES OFFICE 02013 [facility] OUTPATI[facility] 6 6 [facility] T NEW 45 MEDICAL MINUTES [facility] CHRISTIAN - 6 6 [facility] 14409 PEPE NEVAREZ NEVAREZ PEPE OUTPATIEN 5 5 T VISIT CONSULTIN 40 G SRV [facility] - 5 5 [facility] OUTPATIEN INC T EMERGENCY 29813 [facility] 5 5 [facility] DEPARTMEN INC T VISIT MODERATE SEVERITY OFFICE 65393 STEPHANIE SILVA OUTPATIEN 5 5 [place] [facility] T VISIT CLINIC 15 PSC MINUTES [facility] - 5 5 [facility] OUTPATIEN INC T OFFICE 14393 VIJAY GARLAND BUX ANJ OUTPATIEN 5 5 T [facility] 30 MINUTES [facility] - 5 5 [facility] OUTPATIEN INC [facility] - 5 5 [facility] OUTPATIEN INC [facility] - 5 5 [facility] OUTPATIEN INC [facility]PITAL [facility] - 5 5 Y INPATIENT HOSPITAL OFFICE 75594 STEPHANIE SILVA OUTPATIEN 5 [address] [place] J[facility] T VISIT CLINIC 15 PSC MINUTES Emergency AMALIA Saxena MD (ER) 4 20:18 4 22:18 [facility] Emergency AMALIA Canales (ER) 3 23:09 3 01:44 [facility] Emergency AMALIA Guan MD (ER) 3 21:23 3 00:27 [facility] Emergency AMALIA Guan MD (ER) 3 19:06 3 21:45 [facility] OFFICE 12746 [facility] OUTPATIEN 2 2 T VISIT 25 MINUTES EMERGENCY 05022 [facility] 2 2 [facility] DEPARTMEN HOS[facility] T VISIT HIGH/URGE NT SEVERITY HOSPITAL [facility] - 2 2 [facility] OUTPATIEN HOSP T OFFICE 41510 [facility] OUT[facility] 2 2 T VISIT 25 MINUTES EMERGENCY 00654 [facility] 2 2 [facility] DEPARTMEN INC T VISIT HIGH/URGE NT SEVERITY [facility] [place] - 2 2 [facility] OUTPATIEN INC T EMERGENCY 90239 ROB[facility] ZIEGLER DEPT 2 2 EMERGENCY III [facility] HIGH SEVERITY& THREAT FUNCJ OFFICE 27089 [facility] OUT[facility] 2 2 T VISIT 25 MINUTES [facility]OSP[facility] [place] - 2 2 [facility] OUTPATIEN INC T EMERGENCY 01924 [facility] 2 2 [facility] DEPARTMEN INC T VISIT HIGH/URGE NT SEVERITY OFFICE 40990 [facility] OUTPATIEN 2 2 T VISIT 25 MINUTES EMERGENCY 81731 [facility] DEPT 2 2 JEROD VISIT EMERGENCY HIGH PHYS SEVERITY& THREAT FUNCJ OFFICE 46575 [facility] OUTPATIEN 2 2 T VISIT 25 MINUTES [address] [address] INPATIENT OFFICE 22279 SCHWARCZ SCHWARCZ OUTPATIEN 2 2 THO THO T VISIT 25 MINUTES OFFICE 28933 PODIATRIC ASHLEY OUTPATIEN 2 2 FOOT & JR THO T VISIT ANKLE 10 SPECI MINUTES OFFICE 62700 [facility] TIERRA OUTPATIEN 2 2 T VISIT 15 MINUTES OFFICE 38710 NEW ASHLEY OUTPATIEN 2 2 [place] THO T VISIT CLINIC 25 PSC MINUTES OFFICE 51070 [facility] OUTPATIEN 2 2 T VISIT 25 MINUTES [facility] [place] [facility] 2 2 [facility] H[facility] - 2 2 [facility] OFFICE 90880 [facility] OUTPATI[facility] 2 2 ONCOLOGY T VISIT ASSOCIATE 15 S MINUTES HOSPITAL [facility] 2 2 [facility] 41671 [facility] 2 2 [facility] T VISIT HIGH/URGE NT SEVERITY OFFICE 56117 [facility] OUTPATIEN 2 2 T VISIT 25 MINUTES [facility] [place] - 2 2 [facility] 01036 [facility] T VISIT HIGH/URGE NT SEVERITY EMERGENCY 66205 FENG SWINEY DEPT 2 2 MEDICAL PAT VISIT GROUP, HIGH PLLC SEVERITY& THREAT [facility] CENTRAL - [address] [facility] - [address] [facility] T EMERGENCY 45580 [place] DEPT 2 2 [facility] VISIT HOSPITAL HIGH [facility]VERITY& THREAT [facility] [place] - 2 2 [facility] T OFFICE 12315 NEW ASH[facility] OUTPATIEN 2 2 [facility] 40 PSC MINUTES EMERGENCY 25969 [place] 2 2 [facility] HIGH/URGE NT SEVERITY EMERGENCY 78545 ROBBY CANALES DEPT 2 2 EMERGENCY [facility] HIGH SEVERITY& THREAT FUNCJ OFFICE 93030 [facility] OUTPATIEN 2 2 T VISIT 15 MINUTES OFFICE 03117 [facility] OUTPATIEN 2 2 T VISIT 15 MINUTES EMERGENCY 60202 ROBBY CANALES 2 2 EMERGENCY [facility] DEPARTMEN SERVICES T VISIT HIGH/URGE NT SEVERITY [facility]OSPITAL [place] - 2 2 [facility] 73396 [place] 2 2 [facility] LOW/MODER SEVERITY OFFICE 46478 YEYO KENNEY OUTPATIEN 2 2 MD RG VIOLET T NEW 60 PSC MINUTES OFFICE 42660 [facility] OUTPATIEN 2 2 T VISIT 15 MINUTES EMERGENCY 99341 [place] 2 2 [facility] T VISIT MODERATE SEVERITY [facility]OSP[facility] [place] - 2 2 [facility] OUTPATIEN INC T EMERGENCY 47685 ROBBY BOLTON DEPT 2 2 EMERGENCY VISIT SERVICES HIGH SEVERITY& THREAT FUN [facility] [place] [facility] [address] [facility] T OFFICE 52573 [facility] OUTPATIEN 2 2 T VISIT 25 MINUTES [facility] [place] [facility] [address] [facility] T OFFICE 09928 [facility] OUTPATIEN 2 2 T VISIT 15 MINUTES [facility] [place] [facility] [address] [facility] T OFFICE 77107 [facility] OUTPATIEN 2 2 T VISIT 25 MINUTES [facility] [place] - 2 2 [facility] OFFICE 86264 [facility] OUTPATIEN 2 2 T VISIT 15 MINUTES H[facility]PITAL [facility] - 2 2 [facility] OUTPATIEN [facility] T EMERGENCY 39387 [facility] 2 2 [facility] DEPARTMEN HOSP T VISIT LOW/MODER SEVERITY OFFICE 47724 [facility] OUTPATIEN 2 2 T VISIT 25 MINUTES EMERGENCY 48526 ROBBY BOLTON 2 2 EMERGENCY DEPARTMEN SERVICES T VISIT HIGH/URGE NT SEVERITY [facility] [facility] 2 2 [facility] OUTPATIEN INC T EMERGENCY 25227 [place] 2 2 [facility] DEPARTMEN INC T VISIT HIGH/URGE NT SEVERITY EMERGENCY 77071 ROBBY GUAN DEPT 2 2 EMERGENCY MIGUEL VISIT SERVICES HIGH SEVERITY& THREAT FUN OFFICE 83519 [facility] OUTPATIEN 2 2 T VISIT 15 MINUTES [facility] [place] - 1 1 [facility] [place] - 1 1 [facility] OUTPATIEN INC T EMERGENCY 43677 HUMBERTO BOLTON 1 1 DEPARTMEN T VISIT HIGH/URGE NT SEVERITY EMERGENCY 83638 [facility] 1 1 [facility] DEPARTMEN INC T VISIT MODERATE SEVERITY OFFICE 51891 [facility] OUTPATIEN 1 1 T VISIT 15 MINUTES OFFICE 11545 [facility] OUTPATIEN 1 1 T VISIT 15 MINUTES OFFICE 14797 ADVANCED OUTPATIEN 1 1 PAIN T VISIT MEDICIINE 15 PSC MINUTES [facility] [place] [facility] [address] [facility] T OFFICE 23660 [facility] OUTPATIEN 1 1 T VISIT 15 MINUTES OFFICE 25842 ADVANCED VERDUGO OUTPATIEN 1 1 PAIN KEYONNA T VISIT MEDICIINE 25 PSC MINUTES OFFICE 98359 [facility] OUTPATIEN 1 1 T VISIT 15 MINUTES OFFICE 98484 [facility] OUTPATIEN 1 1 T VISIT 15 MINUTES OFFICE 79638 [facility] [place] OUTPATIEN 1 1 PAIN KEYONNA T VISIT MEDICIINE 40 PSC MINUTES OFFICE 42813 AD[facility]ANCED [place] OUTPATIEN 1 1 PAIN [place]ON[place] T VISIT MEDICIINE 25 PSC MINUTES OFFICE 83895 [facility] OUTPATIEN 1 1 T VISIT 15 MINUTES OFFICE 41897 [facility] OUTPATIEN 1 1 T VISIT 15 MINUTES OFFICE 99489 [facility] OUTPATIEN 1 1 T VISIT 25 MINUTES [facility]OSP[facility] [place] - 1 1 [facility] T OFFICE 60841 [facility] OUTPATIEN 1 1 T VISIT 15 MINUTES [facility] [place] [facility] [address] [facility] T OFFICE 93829 [facility] OUTPATIEN 1 1 T VISIT 25 MINUTES OFFICE 92807 [facility] OUTPATIEN 1 1 T VISIT 25 MINUTES EMERGENCY 75452 [place] 1 1 [facility] T VISIT HIGH/URGE NT SEVERITY [facility]OSP[facility] [place] - [address] [facility] T
--- OUTSIDE RECORDS SUMMARY | 2017-07-09 06:45 | External Medical Summary Rpt | CCD ---
Author Author , RADHA Organization RADHA Address Unknown Phone [email or web address] Care Team Providers Care Solar Energy Specialist Name Role Phone BELL VIOLET, BELL VIOLET Unavailable Unavailable [facility], [facility] Unavailable Unavailable [facility], [facility] Unavailable Unavailable RONALDO STEPHANY, RONALDO Unavailable Unavailable STEPHANY [facility] Unavailable Unavailable MEDICIINE [facility], [facility] [employer] Unavailable Unavailable INC, [employer] Unavailable Unavailable INC, [employer] [facility] Unavailable Unavailable [facility], [facility] Unavailable Unavailable [facility], [facility] Unavailable Unavailable ASSOCIATES, [facility] & Unavailable Unavailable CRITICAL, [facility] VERDUGO KEYONNA, VERDUGO Unavailable Unavailable KEYONNA ALEX STA, ALEX Unavailable Unavailable STA BESSON, BESSON Unavailable Unavailable [facility] Unavailable Unavailable IMAGING L, [facility] L [facility] Unavailable Unavailable [facility]PITAL, [facility] Unavailable Unavailable PRACTICE L, [facility] BREAZEALE GRA, Unavailable Unavailable BREAZEALE GRA BUX ANJ, BUX ANJ Unavailable Unavailable JOHN CELINA IGN, Unavailable Unavailable JOHN CELINA IGN [facility], Unavailable Unavailable [facility] Unavailable Unavailable PHYS [facility], [...] [facility] Unavailable Unavailable [place], [facility] [place] SEAN G, ESTRADA G Unavailable Unavailable EVERMAN VIOLET, EVERMAN Unavailable Unavailable VIOLET BALL THO, Unavailable Unavailable BALL THO KLEIN ALI, KLEIN Unavailable Unavailable ALI VANCE SCO, VANCE Unavailable Unavailable SCO GAGUA IRI, GAGUA IRI Unavailable Unavailable FLORY MIGUEL, FLROY Unavailable Unavailable [facility] LINDER ISIDORO, LINDER ISIDORO Unavailable Unavailable ADONAY RHO, ADOANY Unavailable Unavailable RHO GUNDUMALLA GOP, Unavailable Unavailable GUNDUMALLA GOP OBREGON PALMIRA, OBREGON Unavailable Unavailable [facility] Unavailable Unavailable INC, [facility] Unavailable Unavailable HOSPITAL P, [facility] HARGROVE GUILHERME, HARGROVE GUILHERME Unavailable Unavailable LUIS RADHA, LUIS RADHA Unavailable Unavailable JIM KEITH, JIM KEITH Unavailable Unavailable [facility] Unavailable Unavailable @CTRL BAP, [facility] @CTRL [facility]IC[facility] Unavailable Unavailable SERVICES O, HOSPITAL [...] III KEITH, Unavailable Unavailable JAIME III KEITH [facility] Unavailable Unavailable [facility], [facility] Unavailable Unavailable [facility], [facility] Unavailable Unavailable MEDICAL G, [facility] KSEIBI ANA, KSEIBI Unavailable Unavailable [...] LINDA [facility], [facility] Unavailable Unavailable AT [facility], [facility] Unavailable Unavailable LABORATO, [facility] Unavailable Unavailable [facility], [facility] VIJAY GARLAND MD, VIJAY Unavailable Unavailable DADA SANTOS, KELLY Unavailable Unavailable [facility] Unavailable Unavailable SERVICES, [facility], Unavailable Unavailable PLLC, [facility]available Unavailable [facility], [facility] ANKIT DENISE, ANKIT Unavailable Unavailable DENISE [facility], Unavailable Unavailable [facility], Unavailable Unavailable [facility] Unavailable Unavailable [facility], [facility] Unavailable Unavailable [facility], [facility] PSC PEPE NEVAREZ MD Unavailable Unavailable [...] IV HEN, Unavailable Unavailable WALLS IV HEN [facility] Unavailable Unavailable PULMONARY, [facility] CHRISTIANO OLGA, CHRISTIANO Unavailable Unavailable OLGA [...] Unavailable Unavailable PHYSICIAN SERVI, [facility], Unavailable Unavailable [facility], Unavailable Unavailable [facility] Unavailable Unavailable CLINIC, [facility] IRVIN RAY, IRVNI Unavailable Unavailable RAY SWINEY, SWINEY Unavailable Unavailable SWINEY PAT, SWINEY Unavailable Unavailable PAT TALANOW ROL, TALANOW Unavailable Unavailable ROL [facility], Unavailable Unavailable [facility] LUDIVINA III Rafael, LUDIVINA Unavailable Unavailable III J TRUE, TRUE Unavailable Unavailable [facility] Unavailable Unavailable [facility], [facility], Unavailable Unavailable [facility] WEHRMAN III OLGA, Unavailable Unavailable WEHRMAN [...] OBSTRUCTIVE PULMONARY DISEASE UNS M4802 SPINAL 06-14-2017 [facility] STENOSIS [facility] 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 06-03-2017 [facility] SINGLE PHYSICIAN THYROID PRACTICE L NODULE G250 ESSENTIAL 06-03-2017 [facility] TREMOR PHYSICIAN PRACTICE L G8929 OTHER 06-03-2017 [facility] CHRONIC PHYSICIAN PAIN PRACTICE L J05654 UNSPECIFIED 06-01-2017 [facility] CHRONIC PHYSICIANS, CONJUNCTIVI PLLC TIS BILATERAL I10 ESSENTIAL 06-01-2017 [facility] PRIMARY PHYSICIANS, HYPERTENSIO PLLC N J0100 ACUTE 06-01-2017 [facility] MAXILLARY PHYSICIANS, SINUSITIS PLLC UNSPECIFIED M542 CERVICALGIA 06-01-2017 [facility], PLLC N289 DISORDER OF 05-12-2017 [facility] UNSPECIFIED D6859 OTHER 04-22-2017 [facility] PRIMARY LINDA [facility]IL [facility] V38179 OTHER LONG 04-22-2017 [facility] DRUG THERAPY R1012 LEFT UPPER 04-07-2017 [facility] [place] [facility] PAIN R109 UNSPECIFIED 04-07-2017 [facility] ABDOMINAL [facility] PAIN HOSPITAL N189 CHRONIC 03-17-2017 NEW [facility] [place] DISEASE [facility]INIC PSC UNSPECIFIED N390 URINARY 03-17-2017 NEW TRACT [place] INFECTION [facility]INIC PSC SITE NOT SPECIFIED R609 EDEMA 03-08-2017 [facility] U[facility] PH[facility]ICIAN PRACTICE L J159 UNSPECIFIED 12-17-2016 [facility] BACTERIAL PHYSICIAN PNEUMONIA PRACTICE L J181 LOBAR 12-14-2016 [facility] PNEUMONIA MEDICINE UNSPECIFIED SERVICES O ORGANISM J441 CHRONIC 12-14-2016 [facility] OBSTRUCTIVE MEDICINE PULMONARY SERVICES O DZ W/EXACERBAT ION N179 ACUTE 12-14-2016 [facility] KIDNEY MEDICINE FAILURE SERVICES O UNSPECIFIED I129 HYPERTENSIV 12-12-2016 [facility] E CKD N EMERGENCY W/STAGE 1-4 PHYS CKD OR UNS CKD J189 PNEUMONIA 12-12-2016 [facility] UNSPECIFIED N EMERGENCY ORGANISM PHYS R0602 SHORTNESS 12-12-2016 [facility] OF BREATH N EMERGENCY PHYS R51 HEADACHE 12-12-2016 [facility] [place] RADIOLOG[facility] R918 OTHER 12-12-2016 [facility] [place] NONSPECIFIC RADIOLOGY ABNORMAL FINDING OF LUNG FIELD C649 MALIGNANT 12-07-2016 NEW NEOPLASM [facility] UNS KIDNEY CLINIC PSC EXCEPT RENL PELVIS G4733 OBSTRUCTIVE 12-07-2016 NEW SLEEP [facility] ADULT [facility]INIC PSC PEDIATRIC R351 NOCTURIA 12-07-2016 NEW [facility]IC PSC Z8546 PERSONAL 12-07-2016 NEW HISTORY [facility] MALIGNANT CLINIC PSC NEOPLASM OF PROSTATE Z8551 PERSONAL 12-07-2016 NEW HISTORY [facility] MALIGNANT CLINIC PSC NEOPLASM OF BLADDER Z92593 PAIN IN 12-01-2016 [facility] LEFT MEDICAL SHOULDER IMAGING ASS D41824 OTHER 12-01-2016 [facility] CERVICAL MEDICAL DISC IMAGING ASS DEGENERATIO N AT C5-C6 LEVEL N183 CHRONIC 11-22-2016 [facility] DISEASE OF [place] STAGE 3 MODERATE N3943 POST-VOID 11-22-2016 [facility] DRIBBLING ASSOCIATES OF [place] N401 BENIGN 11-22-2016 [facility] PROSTATIC ASSOCIATES HYPERPLASIA OF [place] LW URINARY TRACT SX E119 TYPE 2 11-17-2016 [facility] DIABETES [facility] P WITHOUT COMPLICATIO NS M791 MYALGIA 11-17-2016 [facility] PHYSICIANS, [facility] V91864 PAIN IN 11-17-2016 [facility] LEFT ARM PHYSICIANS, [facility] Z794 CORRECTION 11-17-2016 [facility] CURRENT USE [facility] INSULIN HOSPITAL P M7989 OTHER 11-15-2016 [facility] SPECIFIED MEM HOSP SOFT TISSUE INC DISORDERS Z720 TOBACCO USE 11-15-2016 [facility] F31283 PERSONAL 11-15-2016 [facility] HISTORY OT MEDICAL VENOUS IMAGING ASS THROMBOSIS& EMBOLISM E039 HYPOTHYROID 10-29-2016 LAB [facility] ISM LINDA UNSPECIFIED HOLDINGS G894 CHRONIC 10-29-2016 [place] PAIN PHYSICIAN SYNDROME PRACTICE L C61 MALIGNANT 10-28-2016 NEW NEOPLASM OF [facility] PROSTATE CLINIC PSC K219 GASTRO-ESOP 10-15-2016 [facility] H REFLUX MEM HOSP DISEASE INC WITHOUT ESOPHAGITIS M545 LOW BACK 10-15-2016 [facility] PAIN MEM HOSP INC R319 HEMATURIA 10-15-2016 [facility] UNSPECIFIED MEM HOSP INC Z721 10-15-2016 [facility] INC Z7901 VENIPUNCTURIST 10-15-2016 [facility] CURRENT USE MEM HOSP OF INC ANTICOAGULA NTS Z791 VENIPUNCTURIST 10-15-2016 [facility] CURR MEM HOSP NON-STEROID INC AL&ANTI-INF LAMMATORIES L0211 CUTANEOUS 06-23-2016 [facility] ABSCESS OF MEM HOSP NECK INC C641 MALIGNANT 06-01-2016 NEPHROLOGY NEOPLASM RT ASSOCIATES KIDNEY OF [place] EXCEPT RENAL PELVIS C679 MALIGNANT 06-01-2016 NEPHROLOGY NEOPLASM OF ASSOCIATES BLADDER OF [place] UNSPECIFIED R079 CHEST PAIN 03-11-2016 ST [facility] UNSPECIFIED EAST R9431 ABNORMAL 03-11-2016 [facility] ELECTROCARD [facility] IOGRAM M4722 OT 03-04-2016 [facility] ANA SPONDYLOSIS W/RADICULOP ATHY CERVICAL REGION M4727 OTH 03-04-2016 [facility] ANA SPONDYLOSIS W/RADICULOP ATHY LUMBOSACRAL RGN E042 NONTOXIC 02-09-2016 NEUR[facility]IAGNO MULTINODULA STICS INC R GOITER J341 CYST AND 02-09-2016 NEURODIAGNO MUCOCELE OF STICS INC NOSE AND NASAL SINUS J342 DEVIATED 02-09-2016 [facility] NASAL STICS INC SEPTUM R9082 WHITE 02-09-2016 NEUR[facility]IAGNO MATTER STICS INC DISEASE UNSPECIFIED O98950 PRESENCE OF 02-03-2016 [facility] OTHER HEALTH VASCULAR MEDICAL G IMPLANTS AND GRAFTS D3002 BENIGN 01-28-2016 [facility] NEOPLASM OF REGIONAL LEFT IMAGING L KIDNEY Q08235P OTHER [facility] 01-28-2016 [facility] COMP REGIONAL UMBRELLA IMAGING L DEVICE INITIAL ENCNTR J984 OTHER 12-30-2015 [facility] DISORDERS HEALTH OF LUNG [place] R0600 DYSPNEA 12-30-2015 [facility] UNSPECIFIED [facility]ALTH [facility] 4019 UNSPECIFIED 05-22-2015 [facility] [place] ESSENTIAL HYPERTENSIO CONSULTING N SRV 51737 PRECORDIAL 05-22-2015 [facility] PAIN CONSULTING SRV 0539 HERPES 05-20-2015 [facility] ZOSTER [facility] WITHOUT INC MENTION OF COMPLICATIO N 496 CHRONIC 05-20-2015 [facility] AIRWAY [facility] HOS[facility] OBSTRUCTION INC NEC 7823 EDEMA 05-20-2015 [facility] INC 68657 SHORTNESS 05-20-2015 [facility] OF BREATH MEM HOSP INC 75037 DIAB W/O 05-12-2015 [facility] COMP TYPE N PHYSICIAN II/UNS NOT SERVI STATED UNCNTRL 07148 OBESITY, 05-12-2015 [facility] UNSPECIFIED N PHYSICIAN SERVI 98601 OBSTRUCTIVE 05-12-2015 [facility] CHRONIC N PHYSICIAN BRONCHITIS SERVI WITH EXACERBATIO N 74786 OTHER 05-12-2015 [facility] ABNORMAL N PHYSICIAN GLUCOSE SERVI 68483 HYPERTROPHY 04-24-2015 NEW PROSTATE [place] W/O UR OBST CLINIC PSC & OTH LUTS V1051 PERSONAL 04-24-2015 NEW HISTORY [place] MALIGNANT CLINIC PSC NEOPLASM BLADDER 185 MALIGNANT 04-10-2015 NEW NEOPLASM OF [facility] PROSTATE CLINIC PSC 1889 MALIGNANT 04-10-2015 NEW NEOPLASM OF [facility] BLADDER CLINIC PSC PART UNSPECIFIED 1890 MALIGNANT 04-10-2015 NEW NEOPLASM OF [facility] KIDNEY [facility]INIC PSC EXCEPT PELVIS 23741 HYPERTROPHY 04-10-2015 NEW PROSTATE [place] W/UR OBST & CLINIC PSC OTH LUTS 7226 DEGENERATIO 04-01-2015 ADVANCED N TECHNOLOGIE INTERVERTEB S INC RAL DISC SITE UNSPEC 90609 POSTLAMINEC 04-01-2015 [facility] HOSP SYNDROME INC CERVICAL REGION V571 OTHER 04-01-2015 [facility] MEM HOSP THERAPY INC 25872 DEGEN 03-24-2015 VIJ[facility] LUMBAR/LUMB OSACRAL INTERVERTEB RAL DISC 95179 POSTLAMINEC 03-24-2015 VIJAY HOBSON MD SYNDROME LUMBAR REGION 7244 THORACIC/ELEONORA 03-24-2015 VIJAY BUSTOS MD NEURITIS/RA DICULITIS UNSPEC 7231 CERVICALGIA 02-24-2015 [facility] 7840 HEADACHE 02-24-2015 [facility] 7224 DEGENERATIO 01-16-2015 NEURODIAGNO N OF STICS INC CERVICAL INTERVERTEB RAL DISC 56454 MIGRAINE 12-03-2014 [facility] W/O HOSPITAL INTRACTBL W/STATUS MIGRAINOSUS 4010 ESSENTIAL 12-03-2014 [facility] N, MALIGNANT 5849 ACUTE 12-03-2014 [place] KIDNEY [facility] FAILURE UNSPECIFIED 7820 DISTURBANCE 12-03-2014 [facility] SENSATION 65995 NAUSEA WITH 12-03-2014 [facility] HOSPITAL V1255 PERSONAL 12-03-2014 [facility] PULMONARY EMBOLISM V4573 ACQUIRED 12-03-2014 [facility] KIDNEY V1046 PERSONAL 11-26-2014 NEW HISTORY [facility] MALIGNANT CLINIC PSC NEOPLASM PROSTATE V1052 PERSONAL 11-26-2014 NEW HISTORY OF [facility] MALIGNANT CLINIC PSC NEOPLASM OF KIDNEY 0010 CHOLERA DUE 10-28-2014 [facility] TO [facility] CHOLERAE LABORATO 7242 LUMBAGO 08-25-2012 [facility] 76072 CHEST PAIN 08-25-2012 [facility] UNSPECIFIED V5861 LONG-TERM 08-25-2012 [facility] (CURRENT) PHYSICIANS USE OF LA ANTICOAGULA NTS 90683 OBSTRUCTIVE 08-09-2012 [facility] SLEEP HOME APNEA MEDICAL EQUIPME 5119 UNSPECIFIED 08-09-2012 [facility] PLEURAL HOME EFFUSION MEDICAL EQUIPME 2270 BENIGN 08-04-2012 JIM KEITH NEOPLASM OF ADRENAL GLAND 51759 HEMATURIA 08-04-2012 JIM KEITH UNSPECIFIED 6822 CELLULITIS 08-04-2012 [facility] AND ABSCESS [facility]OS[facility] 7078 CHRONIC 08-04-2012 [facility] ULCER OF [facility]ISM OTHER HOSP SPECIFIED SITE 36858 OTHER 08-04-2012 [facility] POSTOPERATI [facility] VE HOSP INFECTION NEC 36054 DIAB W/O 08-03-2012 [facility] COMP TYPE I HOME [JUV] NOT MEDICAL STATED EQUIPME UNCNTRL 57110 OTHER 07-27-2012 [facility] CHRONIC PAIN 21941 INTESTINAL 06-30-2012 [facility] INFECTIONS EMERGENCY DUE SERVICES CLOSTRIDIUM DIFFICILE 5589 OTH&UNSPEC 06-30-2012 [facility] NONINFECTIO MEM HOSP US INC GASTROENTER ITIS&COLITI S 5699 UNSPECIFIED 06-30-2012 [facility] DISORDER MEDICAL OF IMAGING ASS INTESTINE 5920 CALCULUS OF 06-30-2012 [facility]NEY [facility] 42579 NAUSEA 06-30-2012 [facility] 23383 DIARRHEA 06-30-2012 [facility] 7891 HEPATOMEGAL 06-30-2012 [facility] IM[facility] ASS 54798 OTHER 06-27-2012 [facility] MALAISE AND PHYSICIANS FATIGUE [place] 2859 UNSPECIFIED 06-16-2012 [facility] ANEMIA 586 UNSPECIFIED 06-16-2012 [facility] RENAL FAILURE V0481 NEED 06-16-2012 [facility] PROPHYLACTI C VACCINATION &INOCULATIO N FLU 8795 OPEN WOUND 06-14-2012 [facility] OF THERAPEUTIC ABDOMINAL SER INC WALL LATERAL COMPLICATED 88885 NON-HEALING 06-14-2012 [facility] SURGICAL THERAPEUTIC WOUND NEC SER INC 76347 DIAB W/O 06-11-2012 [facility] MENTION N EMERGENCY COMP TYPE PHYS II/UNS TYPE UNCNTRL 6829 CELLULITIS 06-11-2012 [facility] [place] AND ABSCESS RADIOLOGY OF UNSPECIFIED SITE 9642 POISONING 06-11-2012 [place] BY INPATIENT ANTICOAGULA MEDICINE NTS 5939 UNSPECIFIED 06-02-2012 [facility] DISORDER OF KIDNEY AND URETER 42419 ACUTE 05-25-2012 [facility] FAILURE PULMONARY 10684 OTHER 05-22-2012 [facility] [place] NONSPECIFIC RADIOLOGY ABNORMAL FINDING OF LUNG FIELD 4264 RIGHT 05-21-2012 NEW BUNDLE [facility] 2762 ACIDOSIS 05-20-2012 [facility] PULMONARY 4011 ESSENTIAL 05-20-2012 [place] HYPERTENSIO INPATIENT N, BENIGN MEDICINE 13979 FEVER 05-20-2012 [facility] PULMONARY 5180 PULMONARY 05-19-2012 [facility] [place] COLLAPSE RADIOLOGY 47237 SEPSIS 05-19-2012 [facility] PULMONARY 68898 OTHER ACUTE 05-18-2012 [facility] POSTOPERATI [facility] VE PAIN V5881 FITTING AND 05-18-2012 [facility] [place] ADJUSTMENT RADIOLOGY OF VASCULAR CATHETER 0389 UNSPECIFIED 05-17-2012 [facility] SEPTICEMIA [facility] 21675 ENCEPHALOPA 05-17-2012 [facility] UNSPECIFIED 84372 OTHER 05-17-2012 NEW SPECIFIED [facility] CARDIAC CLINIC [facility] DYSRHYTHMIA S 5845 ACUTE 05-17-2012 [facility] KIDNEY [facility] FAILURE W/LESION TUBULAR NECROSIS 5932 ACQUIRED 05-17-2012 [facility] CYST OF [facility] KIDNEY 88609 SEVERE 05-17-2012 [facility] SEPSIS [facility] 9975 URINARY 05-17-2012 [facility] COMPLICATIO [facility] NS NEC 5969 UNSPECIFIED 05-16-2012 NEW DISORDER [facility] OF BLADDER CLINIC PSC V1251 PERSONAL 05-16-2012 [facility] HISTORY, THO VENOUS THROMBOSIS AND EMBOLISM V4589 OTHER 05-16-2012 [facility] POSTSURGICA THO L STATUS OTHER V7283 OTHER 05-16-2012 [facility] [place] SPECIFIED RADIOLOGY PRE-OPERATI VE EXAMINATION V7284 UNSPECIFIED 05-16-2012 NEW [facility] PRE-OPERATI CLINIC [facility] VE EXAMINATION 40709 NEOPLASM OF 04-24-2012 P[facility] UNCERTAIN FOOT & BEHAVIOR OF ANKLE SPECI KIDNEY&URET ER 1888 MALIGNANT 04-13-2012 NEW NEOPLASM [facility] OTHER CLINIC [facility] SPECIFIED SITES BLADDER 31543 OTHER 04-06-2012 [facility] PULMONARY EMBOLISM AND INFARCTION 24439 AC JOE 04-06-2012 [facility] [employer] THROMB HOLDINGS UNSPEC DEEP VES LOWER EXT V5869 LONG-TERM 04-06-2012 [facility] (CURRENT) [facility] USE OF HOSPITAL OTHER MEDICATIONS V711 OBSERVATION 04-06-2012 [facility] [place] FOR RADIOLOGY SUSPECTED MALIGNANT NEOPLASM 4168 OTHER 04-03-2012 [facility] CHRONIC [facility] PULMONARY HOSP HEART DISEASES 4280 CONGESTIVE 04-03-2012 [facility] HEART CARDIOLOGY FAILURE AT [facility] UNSPECIFIED 4293 CARDIOMEGAL 04-03-2012 [facility] Y [facility]ISM HOSP 4539 EMBOLISM 04-03-2012 [facility] AND ONCOLOGY THROMBOSIS ASSOCIATES OF UNSPECIFIED SITE 68150 OTHER 03-29-2012 [facility] DYSPNEA AND EMERGENCY [place] [address] ABNORMAL 03-29-2012 [facility] COAGULATION [facility] PROFILE HOSP 7245 UNSPECIFIED 03-20-2012 [facility] 7295 PAIN IN 03-20-2012 [facility] TISSUES OF GROUP, PLLC LIMB 22450 ABDOMINAL 03-20-2012 [facility] [place] PAIN OTHER RADIOLOGY SPECIFIED SITE 5859 CHRONIC 03-14-2012 HOSP KIDNEY MEDICINE DISEASE SERV @CTRL UNSPECIFIED BAP 36844 HTN CKD UNS 03-08-2012 [facility] W/CKD [facility] STAGE I HOSP THRU STAGE IV/UNS 4162 CHRONIC 03-08-2012 [facility] PULMONARY PULMONARY & EMBOLISM CRITICAL 4242 TRICUSPID 03-08-2012 [facility] VALVE CARDIOLOGY DISORDERS AT [facility] SPEC NONRHEUMATI C 11543 CHRN VNUS 03-08-2012 [facility] THROMB DEEP ASSOCIATES VES PROX LOWR EXTREM 60343 OBSTRUCTIVE 03-08-2012 [facility] CHRONIC PULMONARY & BRONCHITIS CRITICAL WITHOUT EXACERBAT 39887 CHRONIC 03-08-2012 [facility] RESPIRATORY [facility] FAILURE HOSP 62652 HYPOXEMIA 03-08-2012 [facility] PULMONARY & CRITICAL V462 DEPENDENCE 03-08-2012 [facility] ON MACHINE [facility] FOR HOSP SUPPLEMENTA L OXYGEN V8541 BODY MASS 03-08-2012 [facility] INDEX [facility] 40.0-44.9 HOSP ADULT 486 PNEUMONIA, 03-02-2012 [facility] ORGANISM EMERGENCY UNSPECIFIED SERVICES 5183 PULMONARY 03-02-2012 [facility] EOSINOPHILI MEDICAL A IMAGING ASS 05895 OTHER 03-02-2012 [facility] DISEASES OF MEDICAL LUNG NOT IMAGING ASS ELSEWHERE CLASSIFIED 7969 OTHER 03-02-2012 LABORATORY NONSPECIFIC [facility] OF ABNORMAL LINDA H FINDING 7238 OTHER 02-10-2012 [facility] SYNDROMES AFFECTING CERVICAL REGION 4619 ACUTE 02-09-2012 [place] [facility], [facility]ERGENCY UNSPECIFIED SERVICES 7804 DIZZINESS 01-29-2012 [facility] GIDDINESS 98378 OTHER 01-28-2012 [facility] DISEASES OF MEDICAL NASAL IMAGING ASS CAVITY AND SINUSES 7842 SWELLING 01-28-2012 [facility] MASS OR MEDICAL LUMP IN IMAGING ASS HEAD AND NECK 75005 ATRIAL 01-11-2012 [facility] FIBRILLATIO [facility]OSPITAL 4519 PHLEBITIS&T 01-10-2012 [facility] CARDIOLOGY ITIS OF CLINIC UNSPECIFIED SITE 4536 VENOUS EMBO 01-10-2012 [facility] & [facility] SUPERFICIAL HOSPITAL VES LOWR EXTREM 87410 UNSPECIFIED 12-28-2011 [facility] DIASTOLIC [facility] HEART [facility] FAILURE 7850 UNSPECIFIED 12-28-2011 [facility] TACHYCARDIA SERVICES 3320 PARALYSIS 12-17-2011 [facility] AGITANS 2724 OTHER AND 11-30-2011 [facility] UNSPECIFIED GNO[facility]ICISM HOSP HYPERLIPIDE GONZÁLEZ 02907 DEHYDRATION 11-30-2011 [facility]ISM HOSP 490 BRONCHITIS 11-30-2011 [facility] NOT [facility] SPECIFIED HOSP ACUTE OR CHRONIC V1089 PERSONAL 11-30-2011 [facility] HISTORY [facility] MALIGNANT HOSP NEOPLASM OTHER SITE V5866 LONG-TERM 11-30-2011 [facility] USE OF [facility] 462 ACUTE 11-29-2011 [facility] PHARYNGITIS 4871 INFLUENZA 11-29-2011 [facility] WITH OTHER RESPIRATORY MANIFESTATI ONS 09019 MUSCLE 11-29-2011 [place] WEAKNESS [facility] (GENERALIZE SERVICES D) 4660 ACUTE 11-18-2011 [facility] BRONCHITIS 75426 ASTHMA, 11-08-2011 [place] UNSPECIFIED EMERGENCY , SERVICES UNSPECIFIED STATUS V1559 PERSONAL 09-24-2011 [place] [facility] OTHER HOSPITAL INJURY 78078 UNSPECIFIED 09-19-2011 [facility] RETENTION OF URINE 3384 CHRONIC 07-29-2011 [facility] SYNDROME MEDICIINE PSC 3538 OTHER NERVE 07-29-2011 [facility] ROOT AND PAIN PLEXUS MEDICIINE DISORDERS PSC 7210 CERVICAL 07-29-2011 [facility] SPONDYLOSIS PAIN WITHOUT MEDICIINE MYELOPATHY PSC 7232 CERVICOCRAN 07-29-2011 [facility] IAL PAIN SYNDROME MEDICIINE PSC 2449 UNSPECIFIED 07-26-2011 [facility] HYPOTHYROID HOSPITAL ISM 5990 URINARY 07-26-2011 [place] TRACT [facility] INFECTION HOSPITAL SITE NOT SPECIFIED 7241 PAIN IN 07-26-2011 [facility] [place] THORACIC RADIOLOGY SPINE 94537 OTHER CHEST 07-26-2011 [facility] 7810 ABNORMAL 07-20-2011 [facility] INVOLUNTARY MOVEMENTS 7213 LUMBOSACRAL 04-28-2011 [facility] SPONDYLOSIS MEDICIINE WITHOUT PSC MYELOPATHY 7220 DISPLCMT 04-28-2011 [facility] CERV PAIN INTERVERT MEDICIINE DISC PSC WITHOUT MYELOPATHY 7246 DISORDERS 04-28-2011 [facility] OF SACRUM PAIN MEDICIINE PSC 87964 ABDOMINAL 03-16-2011 NEURODIAGNO PAIN, STICPS GENERALIZED V7644 SPECIAL 03-04-2011 [facility] SCREENING [facility] HOLDING NEOPLASM OF PROSTATE 58151 ABDOMINAL 02-26-2011 [facility] PAIN, UNSPECIFIED SITE 28142 ABDOMINAL 02-26-2011 [place] PA[facility] RIGHT [facility] UPPER HOSPITAL QUADRANT 15543 ABDOMINAL 02-26-2011 [facility] 8628 INJR MX&UNS 02-26-2011 [facility] ORGN W/O HOSPITAL OPN WND IN CAV 9269 CRUSHING 02-26-2011 [facility] INJUR[facility] OF [facility] UNSPECIFIED HOSPITAL SITE OF TRUNK 6029 UNSPECIFIED 02-18-2011 [place] DISORDER OF PROSTATE 1560 MALIGNANT 02-17-2011 [facility] NE[facility] OF [facility] HOSPITAL GALLBLADDER 1980 SECONDARY 02-17-2011 [place] MALIGNANT [facility] NEOPLASM OF HOSPITAL KIDNEY 7862 COUGH 02-17-2011 [facility] Medications Na ND Rx Da Fi Fi [...] 0 30 30 EA 24 WE Ac NV 25 -0 -[address] ti [place] 30 4- 4- 00 SI 15 ve OL 90 20 20 DE MU AM 11 11 11 RR 1 PH AY 0. AR D 5 MA MG CY TA OF BL ET CY NT HI AN A Procedures Procedure DOS Code Location Performer Comment MRI [address] [facility] SPINAL 7 [facility] CERVICAL W/O CONTRAST MATRL PRTBLE [id number] [facility] GASEOUS 7 O2 SYS RENT; FLWMTR HUMIDFR&M ASK O2 CONC 1 E1390 [facility] [facility] DEL PORT 7 85%/>02 CON[facility] AT [facility] FLW RATE O2 CONC 1 E1390 [facility] DEL PORT 7 85%/>02 CONC AT PRS FLW RATE PRTBLE E0431 [facility] GASEOUS 7 O2 SYS RENT; FLWMTR H[place]FR&[place] [address] [place] TRUE ABDOMEN & 7 MEDICAL PELVIS SERV W/O FOUNDATIO CONTRAST N MATERIAL PROTHROMB 34794 LAB [facility] LAB [facility] IN TIME 7 LINDA LINDA [facility] HOLDINGS DRUG TEST 34029 [facility] 7 [facility] ([place], [place]) CHEMISTRY ANALYZERS O2 CONC 1 E1390 [facility] DEL PORT 7 85%/>02 [facility] AT [facility] FLW RATE PRTBLE E0431 [facility] GASEOUS 7 O2 SYS RENT; [place] [address] [place] SCALF ABDOMEN & 7 RADIOLOGY PELVIS W/O CONTRAST MATERIAL CULTURE 63220 [facility] BACTERIAL 7 CLINIC CLINIC LABORATO LABORATO QUANTTATI VE COLONY COUNT URINE URNLS DIP 23241 STEPHANIE SILVA [address] [place] [address] STICK/TAB CLINIC LET RGNT PSC AUTO W/O MICROSCOP Y O2 CONC 1 E1390 [facility] DEL PORT 7 85%/>02 [facility] AT [facility] FLW RATE PRTBLE E0431 [facility] GASEOUS 7 O2 SYS RENT; FLWMTR HUMIDFR&M ASK PROTHROMB 12159 LAB MONICA LAB MONICA IN TIME 7 LINDA LINDA [facility] DRUG TST G0483 LAB [facility] LAB [facility] DEFINITV [address] ID [facility] METH P DAY 22/MORE DR CL DRUG TEST 27529 LAB MONCIA LAB MONICA PRSMV 7 LINDA LINDA INSTRMNT [facility] CHEMISTRY ANALYZERS COLLECTIO 79883 YNES TATE N VENOUS 7 PHYSICIAN BLOOD PRACTICE VENIPUNCT L URE PROTHROMB 91428 LAB [facility] LAB MON[facility] IN TIME 7 LINDA LINDA [facility] INITIAL [address] [place] [address] MEDICINE CARE/DAY SERVICES [address] [place] [address] [facility] [place] SCALF HEAD/BRAI 7 RADIOLOGY N W/O CONTRAST MATERIAL RADIOLOGI 61222 [facility] [place] SCALF C 7 RADIOLOGY EXAMINATI ON CHEST SINGLE VIEW FRONTAL ECG 93507 [facility] ROUTINE 7 JEROD ECG EMERGENCY W/LEAST PHYS 12 LDS I&R ONLY RADEX 95053 [place] [facility] SHOULDER 7 MEDICAL COMPLETE IMAGING MINIMUM 2 ASS VIEWS RADEX 41548 [facility] SPINE 7 MEDICAL CERVICAL IMAGING 2 OR 3 ASS VIEWS ECG 58884 ARIANA KARTIK ROUTINE 7 [facility] W/LEAST P 12 LDS I&R ONLY DUP-SCAN 19238 [place] [facility] XTR VEINS 7 MEDICAL IMAGING UNILATERA ASS L/LIMITED STUDY PROTHROMB 21604 LAB [facility]ICA LAB MONICA IN TIME 7 [facility] HOLDINGS PROTHROMB 78216 LAB OMNICA LAB MONICA IN TIME 7 [facility] [place] [address] LAB MONICA LAB [facility] THYROXINE 7 [facility] T[facility] COLLECTIO 40944 YNES TATE N VENOUS 7 PHYSICIAN BLOOD [place] [address] LAB [facility] LAB [facility] THYROID 7 [facility] STIMULATI HOLDINGS HOLDINGS NG HORMONE TSH URNLS DIP 67392 STEPHANIE SILVA 7 [place] STICK/TAB CLINIC LET RGNT PSC AUTO W/O MICROSCOP Y COMPREHEN [address] SIVE 7 [facility] METABOLIC INC INC PANEL PROTHROMB [address] IN TIME [address] [place] [address] ABDOMEN & 7 [facility] PELVIS INC INC W/[place] [address] LIPASE 7 [facility] INC INC URNLS DIP [address] 7 [facility] STICK/TAB INC INC LET REAGENT AUTO MICROSCOP Y BLOOD [address] COUNT 7 [facility] COMPLETE INC INC AUTO&AUTO DIFRNTL WBC CYSTOURET 19031 [facility] HROSCOPY 6 [facility] PSC PSC THERAPEUT 74673 [place] IC PX 1/> 6 [facility] E[facility] 15 MIN EXERCISES E-STIM G0283 [place] 1/> AREAS 6 [facility] WND CARE PART TX PLAN E-STIM G0283 [place] 1/> AREAS 6 [facility] WND CARE PART TX PLAN THERAPEUT 56851 [place] IC PX 1/> 6 [facility] E[facility] 15 MIN EXERCISES THERAPEUT 00883 [place] IC PX 1/> 6 [facility] E[facility] 15 MIN EXERCISES E-STIM G0283 [place] 1/> AREAS 6 [facility] HOSPITAL WND CARE PART TX PLAN E-STIM G0283 [place] 1/> AREAS 6 [facility]PITAL WND CARE PART TX PLAN PHYSICAL 25519 [place] THERAPY 6 [facility] [address] SIVE 6 [facility] [address] THYROID 6 [facility] STIMULATI INC INC NG HORMONE TSH COLLECTIO [address] N VENOUS 6 [facility] [place] [address] THYROXINE 6 [facility] TOTAL INC INC DRAINAGE [id number] [address] OF NECK 6 [facility] SKIN INC INC EXTERNAL BLOOD [address] COUNT 6 [facility] COMPLETE INC INC AUTO&AUTO DIFRNTL WBC THYROID [address] HORM 6 [facility] UPTK/THYR INC INC OID HORMONE BINDING RATIO BLOOD 42046 [facility] COUNT 6 N N COMPLETE COMMUNTIY COMMUNTIY AUTO&AUTO HOSPITA HOSPITA DIFRNTL WBC THROMBOPL 08835 [facility] ASTIN 6 N N TIME COMMUNTIY COMMUNTIY PARTIAL HOSPITA HOSPITA PLASMA/WH OLE BLOOD PROTHROMB 12804 [facility] IN TIME 6 N N COMMUNTIY COMMUNTIY HOSPITA HOSPITA US SOFT 71695 [facility] TISSUE 6 N N HEAD & COMMUNTIY COMMUNTIY NECK REAL HOSPITA HOSPITA TIME IMGE DOCM COLLECTIO 01078 [facility] N VENOUS 6 N N BLOOD COMMUNTIY COMMUNTI[place] [address] [facility] MAXILLOFA 6 N N CIAL W/O COMMUNTIY COMMUNTIY CONTRAST HOSPITA HOSPITA MATERIAL INJECTION [id number] [place] 0.1 MG TECHNETIU A9502 [facility] M TC-[address]M [address] [place] [address] TETROFOSM IN DX PER STUDY DOSE CV STRS 88685 [facility] TST [address] [place] [address] XERS&/OR RX CONT ECG TRCG ONLY MYOCARDIA 18594 [facility] L SPECT [address] [place] [address] MULTIPLE STUDIES US SOFT 29417 NEURODIAG SNU ISIDORO TISSUE 6 NOSTICS HEAD & INC NECK REAL TIME IMGE DOCM MRI ORBIT 75409 NEURODIAG SUN ISIDORO FACE & 6 NOSTICS NECK W/O INC & W/[place] [address] [facility] ABDOMEN & 6 REGIONAL LD IV ALL PELVIS IMAGING W/O L CONTRST 1/> BODY RE TECHNETIU A9540 CASSIE Burkett TC-99M 6 [facility] MAA DX [facility] STDY DOSE UP TO 10 MCI PULMONARY 19682 GNOSTICISM GNOSTICISM 6 [facility]ALTH VENTILATI [facility] ON & PERFUSION IMAGING XENON A9558 GNOSTICISM GNOSTICISM XE-133 6 [facility]ALTH HEALTH GAS [facility] DIAGNOSTI C PER 10 MILLICURI ES RADIOLOGI 13415 GNO[facility]ISM GNOSTICISM C EXAM 6 [facility] CHEST 2 [facility] VIEWS FRONTAL&[place] [address] [facility]ISM GNOSTICISM TRACT 6 [facility]ALTH HEALTH UPPER [facility] W/WO DELAYED IMAGES W/KUB NEBULIZER E0570 [facility] WITH 6 COMPRESSO R ECG 26969 PEPE NEVAREZ NEVAREZ PEPE ROUTINE 5 MD ECG CONSULTIN W/LEAST G SRV 12 LDS W/I&R ECHO 00208 PEPE NEVAREZ NEVAREZ PEPE TTHRC R-T 5 2D CONSULTIN W/WOM-MOD G SRV E COMPL SPEC&COLR D CREATINE [address] KINASE MB 5 [facility] FRACTION INC INC ONLY RADIOLOGI 79742 ARIANA Daniel EXAM 5 [facility] CHEST 2 INC INC VIEWS FRONTAL&L ATERAL COMPREHEN [address] SIVE 5 [facility] METABOLIC INC INC PANEL ECG [address] ROUTINE 5 [facility] ECG INC INC W/LEAST 12 LDS TRCG ONLY W/O I&R CREATINE [address] KINASE 5 [facility] TOTAL INC INC RADIOLOGI [address] C 5 [facility] EXAMINATI INC INC ON CHEST SINGLE VIEW FRONTAL NATRIURET [address] IC 5 [facility] [place] [address] TROPONIN 5 [facility] QUANTITAT INC INC JOANIE BLOOD [address] COUNT 5 [facility] COMPLETE INC INC AUTO&AUTO DIFRNTL WBC PROTHROMB [address] IN TIME 5 [facility] INC HOSP[facility] 99261 [facility] 5 JEROD CELINA IGN DAY PHYSICIAN MANAGEMEN SERVI T > 30 MIN SBSQ 44903 [facility] 5 JEROD CELINA IGN CARE/DAY PHYSICIAN 25 SERVI MINUTES SBSQ 18255 [facility] 5 JEROD CELINA IGN CARE/DAY PHYSICIAN 25 SERVI MINUTES ECG 42503 [facility] 5 JEROD A GOP ECG PHYSICIAN W/LEAST SERVI 12 LDS I&R ONLY INITIAL 50989 [facility] 5 JEROD A GOP CARE/DAY PHYSICIAN 70 SERVI MINUTES CYSTOURET 93669 STEPHANIE SILVA HROSCOPY 5 [facility] PSC APPL [address] MODALITY 5 [facility] 1/> AREAS INC INC ELEC STIMJ UNATTENDE D PHYSICAL [address] THERAPY 5 [facility] EVALUATIO INC INC N APPLICATI [address] ON 5 [facility] MODALITY INC INC 1/> AREAS HOT/COLD PACKS APPL [address] MODALITY 5 [facility] 1/> AREAS INC INC ULTRASOUN D EA 15 MIN URNLS DIP 62064 STEPHANIE RICARDO 5 [facility] STICK/TAB CLINIC LET RGNT PSC AUTO W/O MICROSCOP Y APPL [address] MODALITY 5 [facility] 1/> AREAS INC INC ULTRASOUN D EA 15 MIN [address]ATI [address] ON 5 [facility] MODALITY INC INC 1/> AREAS HOT/COLD PACKS THERAPEUT [address] IC PX 1/> 5 [facility] AREAS INC INC EACH 15 MIN EXERCISES APPL [address] MODALITY 5 [facility] 1/> AREAS INC INC ELEC STIMJ UNATTENDE D APPL [address] MODALITY 5 [facility] 1/> AREAS INC INC ELEC STIMJ UNATTENDE D THERAPEUT [address] IC PX 1/> 5 [facility] AREAS INC INC EACH 15 MIN EXERCISES APPLICATI 49641 ARIANA OBREGONON ON 5 [facility] MODALITY INC INC 1/> AREAS HOT/COLD PACKS APPL [address] MODALITY 5 [facility] 1/> AREAS INC INC ULTRASOUN D EA 15 MIN APPLICATI [address] ON 5 [facility] MODALITY INC INC 1/> AREAS HOT/COLD PACKS ORTHOTIC [address] MGMT&IKE 5 [facility] [place] UXTR INC INC LXTR&/TRN K EA [address] IC PX 1/> 5 [facility] AREAS INC INC EACH 15 MIN EXERCISES LUMB L0627 [facility] 5 TECHNOLOG TECHNOLOG SAGIT IES INC IES INC CNTRL RIGID A&P PANEL PREFAB APPL 42807 ARIANA ARIANA MODALITY 5 [facility] 1/> AREAS INC INC ELEC STIMJ UNATTENDE D APPL 11821 ARIANA ARIANA MODALITY 5 [facility] 1/> AREAS INC INC ELEC STIMJ UNATTENDE D THERAPEUT 28863 ARIANA ARIANA IC PX 1/> 5 [facility] AREAS INC INC EACH 15 MIN EXERCISES APPL [address] MODALITY 5 [facility] 1/> AREAS INC INC ULTRASOUN D EA 15 MIN APPL 74242 ARIANA ARIANA MODALITY 5 [facility] 1/> AREAS INC INC ULTRASOUN D EA 15 MIN THERAPEUT [address] IC PX 1/> 5 [facility] AREAS INC INC EACH 15 MIN EXERCISES APPL [address] MODALITY 5 [facility] 1/> AREAS INC INC ELEC STIMJ UNATTENDE D APPL [address] MODALITY 5 [facility] 1/> AREAS INC INC ELEC STIMJ UNATTENDE D THERAPEUT [address] IC PX 1/> 5 [facility] AREAS INC INC EACH 15 MIN EXERCISES APPL [address] MODALITY 5 [facility] 1/> AREAS INC INC ULTRASOUN D EA 15 MIN APPLICATI [address] ON 5 [facility] MODALITY INC INC 1/> AREAS HOT/COLD PACKS APPLICATI [address] ON 5 [facility] MODALITY INC INC 1/> AREAS HOT/COLD PACKS APPL [address] MODALITY 5 [facility] 1/> AREAS INC INC ULTRASOUN D EA 15 MIN APPL [address] MODALITY 5 [facility] 1/> AREAS INC INC ELEC STIMJ UNATTENDE D THERAPEUT [address] IC PX 1/> 5 [facility] AREAS INC INC EACH 15 MIN EXERCISES THERAPEUT [address] IC PX 1/> 5 [facility] AREAS INC INC EACH 15 MIN EXERCISES APPL [address] MODALITY 5 [facility] 1/> AREAS INC INC ELEC STIMJ UNATTENDE D APPL [address] MODALITY 5 [facility] 1/> AREAS INC INC ULTRASOUN D EA 15 MIN APPL [address] MODALITY 5 [facility] 1/> AREAS INC INC ULTRASOUN D EA 15 MIN APPL [address] MODALITY 5 [facility] 1/> AREAS INC INC ELEC STIMJ UNATTENDE D THERAPEUT [address] IC PX 1/> 5 [facility] AREAS INC INC EACH 15 MIN EXERCISES THERAPEUT [address] IC PX 1/> 5 [facility] AREAS INC INC EACH 15 MIN EXERCISES APPL [address] MODALITY 5 [facility] 1/> AREAS INC INC ELEC STIMJ UNATTENDE D APPL [address] MODALITY 5 [facility] 1/> AREAS INC INC ULTRASOUN D EA 15 MIN [address]PL [address] MODALITY 5 [facility] 1/> AREAS INC INC ULTRASOUN D EA 15 MIN APPLICATI [address] ON 5 [facility] MODALITY INC INC 1/> AREAS HOT/COLD PACKS THERAPEUT [address] IC PX 1/> 5 [facility] AREAS INC INC EACH 15 MIN EXERCISES APPL [address] MODALITY 5 [facility] 1/> AREAS INC INC ELEC STIMJ UNATTENDE D APPL [address] MODALITY 5 [facility] 1/> AREAS INC INC ELEC STIMJ UNATTENDE D APPL [address] MODALITY 5 [facility] 1/> AREAS INC INC ULTRASOUN D EA 15 MIN THERAPEUT [address] IC PX 1/> 5 [facility] AREAS INC INC EACH 15 MIN EXERCISES THERAPEUT [address] IC PX 1/> 5 [facility] AREAS INC INC EACH 15 MIN EXERCISES APPL [address] MODALITY 5 [facility] 1/> AREAS INC INC ULTRASOUN D EA 15 [address]PL [address] MODALITY 5 [facility] 1/> AREAS INC INC ELEC STIMJ UNATTENDE D MRI 13155 NEURODIAG OBREGON SPINAL 5 NOSTICS [place] CANAL INC CERVICAL W/O CONTRAST MATRL APPL [address] MODALITY 5 [facility] 1/> AREAS INC INC ELEC STIMJ UNATTENDE D APPL [address] MODALITY 5 [facility] 1/> AREAS INC INC ULTRASOUN D EA 15 MIN THERAPEUT [address] IC PX 1/> 5 [facility] AREAS INC INC EACH 15 MIN EXERCISES THERAPEUT [address] IC PX 1/> 5 [facility] AREAS INC INC EACH 15 MIN EXERCISES APPL [address] MODALITY 5 [facility] 1/> AREAS INC INC ULTRASOUN D EA 15 MIN APPLICATI [address] ON 5 [facility] MODALITY INC INC 1/> AREAS HOT/COLD PACKS APPL [address] MODALITY 5 [facility] 1/> AREAS INC INC ELEC STIMJ UNATTENDE D APPL [address] MODALITY 5 [facility] 1/> AREAS INC INC ULTRASOUN D EA 15 MIN [address]ERAPEUT [address] IC PX 1/> 5 [facility] AREAS INC INC EACH 15 MIN EXERCISES MANUAL [address] THERAPY 5 [facility] TQS 1/> INC INC REGIONS EACH 15 MINUTES MANUAL [address] THERAPY 5 [facility] TQS 1/> INC INC REGIONS EACH [address]ES APPL [address] MODALITY 5 [facility] 1/> AREAS INC INC ULTRASOUN D EA 15 MIN APPLICATI [address] ON 5 [facility]OS[facility] MODALITY INC INC 1/> AREAS HOT/COLD PACKS APPL [address] MODALITY 5 [facility] 1/> AREAS INC INC ELEC STIMJ UNATTENDE D THERAPEUT [address] IC PX 1/> 5 [facility] AREAS INC INC EACH 15 MIN EXERCISES THERAPEUT [address] IC PX 1/> 5 [facility] AREAS INC INC EACH 15 MIN EXERCISES APPL [address] MODALITY 5 [facility] 1/> AREAS INC INC ELEC STIMJ UNATTENDE D APPLICATI [address] ON 5 [facility]OS[facility] MODALITY INC INC 1/> AREAS HOT/COLD PACKS APPL [address] MODALITY 5 [facility] 1/> AREAS INC INC ULTRASOUN D EA 15 MIN APPL [address] MODALITY 5 [facility] 1/> AREAS INC INC ELEC STIMJ UNATTENDE D THERAPEUT [address] IC PX 1/> 5 [facility] AREAS INC INC EACH 15 MIN EXERCISES PHYSICAL [address] THERAPY 5 [facility] EVALUATIO INC INC N CYSTOURET 51719 [facility] HROSCOPY 5 [facility] PSC PSC COLLECTIO 24141 [facility] N VENOUS 5 [place] JUS BLOOD CLINIC VENIPUNCT PSC URE URNLS DIP 70000 STEPHANIE SILVA 5 [place] JUS STICK/TAB CLINIC LET RGNT PSC AUTO W/O MICROSCOP Y CYTP 39833 STEPHANIE ERNST FRANDY SLCTV 5 [facility] CELL [facility]IN[facility] ENHANCEME PSC NT INTERPJ XCPT C/[place] [address] STEPHANIE SILVA PROSTATE 5 [facility] JUS SPECIFIC CLINIC ANTIGEN PSC TOTAL CUL BACT 89878 [facility] XCPT 5 CLINIC CLINIC URINE LABORATO LABORATO BLOOD/STO OL AEROBIC ISOL SMR PRIM 24689 [facility] SRC 5 CLINIC CLINIC GRAM/GIEM LABORATO LABORATO SA STAIN BCT FUNGI/LEODAN L PROTHROMB 45955 COMBINED COMBINED IN TIME 2 PHYSICIAN PHYSICIAN S LA S LA COLLECTIO 42869 COMBINED COMBINED N VENOUS 2 PHYSICIAN PHYSICIAN BLOOD S LA S LA VENIPUNCT URE CONTINUOU E0601 ABDON COPPOLA S 2 HOME HOME POSITIVE MEDICAL MEDICAL AIRWAY EQUIPME EQUIPME PRESSURE DEVICE NONCOVERE A9270 [facility] D ITEM OR 2 GNOSTICISM GNOSTICISM SERVICE HOSP HOSP COMPREHEN 28340 [facility] SIVE 2 GNOSTICISM GNOSTICISM METABOLIC HOSP HOSP PANEL COLLECTIO 42940 [facility] N VENOUS 2 GNOSTICISM GNOSTICISM BLOOD HOSP HOSP VENIPUNCT URE PROTHROMB 58595 [facility] IN TIME 2 [place] [address] [facility] ABDOMEN & 2 GNOSTICISM GNOSTICISM PELVIS HOSP HOSP W/O CONTRAST MATERIAL BLOOD 26965 [facility] COUNT 2 GNOSTICISM GNOSTICISM COMPLETE HOSP HOSP AUTO&AUTO DIFRNTL WBC URNLS DIP 90680 [facility] CENTRAL 2 GNOSTICISM GNOSTICISM STICK/TAB HOSP HOSP LET REAGENT AUTO MICROSCOP Y PRTBLE E0431 ABDON COPPOLA GASEOUS 2 HOME HOME O2 SYS MEDICAL MEDICAL RENT; EQUIPME EQUIPME FLWMTR HUMIDFR&M ASK O2 CONC 1 E1390 ABDON COPPOLA DEL PORT 2 HOME HOME 85%/>02 MEDICAL MEDICAL CONC AT EQUIPME EQUIPME PRSC FLW RATE HEMOGLOBI 05579 [facility] MUR N 2 GLYCOSYLA CORTNEY A1C ADMN SET A7003 YOUR YOUR SM VOL 2 PHARMACY PHARMACY NONFILTR PNEUMAT NEBULIZR DISPBL URNLS DIP 23087 [facility] 2 RAMANA JR THO STICK/TAB CLINIC LET RGNT PSC AUTO W/O MICROSCOP Y CONTINUOU E0601 ABDON COPPOLA S 2 HOME HOME POSITIVE MEDICAL MEDICAL AIRWAY EQUIPME EQUIPME PRESSURE DEVICE PRTBLE E0431 ABDONBLANE COPPOLA GASEOUS 2 HOME HOME O2 SYS MEDICAL MEDICAL RENT; EQUIPME EQUIPME FLWMTR HUMIDFR&M ASK O2 CONC 1 E1390 ABDON COPPOLA DEL PORT 2 HOME HOME 85%/>02 MEDICAL MEDICAL CONC AT EQUIPME EQUIPME PRSC FLW RATE PROTHROMB [address] IN TIME 2 [facility] [place] [address] CLOSTRIDI 2 MEM [facility] UM INC INC DIFFICILE TOXIN CUL BACT [address] STOOL 2 [facility] AEROBIC INC INC ISOL SALMONELL A&[place] [address] ABDOMEN & 2 [facility] PELVIS INC INC W/[place] [address] LIPASE 2 [facility] INC INC THER [address] PROPH/DX 2 [facility] NJX IV INC INC PUSH SINGLE/1S T SBST/DRUG BLOOD [address] COUNT 2 MEM [facility] MEM [facility]OS[facility] COMPLETE INC INC AUTO&AUTO DIFRNTL WBC URNLS DIP [address] 2 [facility]OS[facility] STICK/TAB INC INC LET [place] [address] AMYLASE 2 [facility] INC INC THERAPEUT [address] IC 2 [facility] INJECTION INC INC IV PUSH EACH NEW DRUG COMPREHEN [address] SIVE 2 [facility] METABOLIC INC INC PANEL INJECTION J2405 [address] 2 [facility] ONDANSETR INC INC ON HCL PER [address] RENDERING 2 [facility] INC INC W/INTERP& POSTPROC DIFF WORK STATION COLLECTIO 93841 COMBINED COMBINED N VENOUS 2 PHYSICIAN PHYSICIAN BLOOD S LA S LA VENIPUNCT URE POTASSIUM 91641 COMBINED COMBINED SERUM 2 PHYSICIAN PHYSICIAN PLASMA/WH S LA S LA OLE BLOOD PROTHROMB 20458 COMBINED COMBINED IN TIME 2 PHYSICIAN PHYSICIAN S LA S LA URNLS DIP 69037 [facility] 2 RAMANA JR THO STICK/TAB CLINIC LET RGNT PSC AUTO W/O MICROSCOP Y THERAPEUT [address] 2 [facility] HOSP INJECTION [place] [address] INFUSION 2 [facility] THERAPY/P INC INC ROPHYLAXI S /DX 1ST TO 1 HR BASIC 36738 COMBINED COMBINED METABOLIC 2 PHYSICIAN PHYSICIAN PANEL S LA S LA CALCIUM TOTAL PROTHROMB 23244 COMBINED COMBINED IN TIME 2 PHYSICIAN PHYSICIAN S LA S LA BLOOD 40658 COMBINED COMBINED COUNT 2 PHYSICIAN PHYSICIAN COMPLETE S LA S LA AUTO&AUTO DIFRNTL WBC COLLECTIO 60369 COMBINED COMBINED N VENOUS 2 PHYSICIAN PHYSICIAN BLOOD S LA S LA VENIPUNCT URE COMPREHEN 18528 COMBINED COMBINED SIVE 2 PHYSICIAN PHYSICIAN METABOLIC S LA S LA PANEL CANISTER A7000 [facility] DISPOSABL 2 THERAPEUT THERAPEUT E USED IC SER IC SER WITH INC INC SUCTION PUMP EACH HOSPITAL 9[address]22 [facility] 2 INPATIENT ALI DAY MEDICINE MANAGEMEN T > 30 MIN WND CARE A6550 [facility] SET NEG 2 THERAPEUT THERAPEUT PRSS WND IC SER IC SER TX ELEC INC INC PUMP SPL ADMN SET A7003 YOUR YOUR SM VOL 2 PHARMACY PHARMACY NONFILTR PNEUMAT NEBULIZR DISPBL NEG PRESS E2402 [facility] WOUND 2 THERAPEUT THERAPEUT THERAPY IC SER IC SER ELEC PUMP INC INC STATION/P RTBLE SBSQ 85600 [facility] 2 INPATIENT ALI CARE/DAY MEDICINE 25 MINUTES SBSQ 15479 [facility] 2 INPATIENT ALI CARE/DAY MEDICINE 35 MINUTES INITIAL 62288 [facility] 2 INPATIENT ALI CARE/DAY MEDICINE 70 MINUTES RADIOLOGI 49338 [facility] [place] IRVIN C 2 RADIOLOGY RAY EXAMINATI ON CHEST SINGLE VIEW FRONTAL HEADGEAR A7035 [facility] A[facility] USED 2 HOME HOME W/POSITIV MEDICAL MEDICAL E AIRWAY EQUIPME EQUIPME PRESSURE DEVICE HUMDIFIR E0562 [facility] HEATED 2 HOME HOME USED MEDICAL MEDICAL W/POS EQUIPME EQUIPME ARWAY PRESSURE DEVICE TUBING A7037 [facility] A[facility] USED WITH [...] W/POS ARWAY PRESS DEVICE CONTINUOU E0601 [facility] S 2 HOME HOME POSITIVE MEDICAL MEDICAL AIRWAY EQUIPME EQUIPME PRESSURE DEVICE O2 CONC 1 E1390 ABDON ABDON DEL PORT 2 HOME HOME 85%/>02 MEDICAL MEDICAL CONC AT EQUIPME EQUIPME PRSC FLW RATE PRTBLE E0431 A[facility] PENARELL GASEOUS 2 HOME HOME O2 SYS MEDICAL MEDICAL RENT; EQUIPME EQUIPME FLWMTR HUMIDFR&M ASK SBSQ 42392 [facility] 2 Y THO CARE/DAY ASSOCIATE 15 S MINUTES SBSQ [address] CARE/DAY EAST 25 PULMONARY MINUTES SBSQ 80031 [facility] 2 INPATIENT CARE/DAY MEDICINE 25 MINUTES SBSQ [address] CARE/DAY EAST 35 PULMONARY MINUTES SBSQ [address] CARE/DAY EAST 35 PULMONARY MINUTES SBSQ 30792 [facility] 2 INPATIENT CARE/DAY MEDICINE 25 MINUTES SBSQ 17099 [facility] 2 INPATIENT CARE/DAY MEDICINE 25 MINUTES CRITICAL 99135 [facility] [place] 2 SUZANNE GRA ILL/INJUR EAST ED PULMONARY PATIENT INIT 30-74 MIN RADIOLOGI 00366 [facility] RHETT WHYTE C 2 RADIOLOGY LD IV A EXAMINATI ON CHEST SINGLE VIEW FRONTAL RADIOLOGI 18569 [facility] [place] C 2 RADIOLOGY LD IV A EXAMINATI ON CHEST SING[place]IEW FRONTAL SBSQ 01648 [facility] 2 INPATIENT CARE/DAY MEDICINE 25 MINUTES SBSQ 82635 [facility] 2 [facility] CARE/DAY EAST 35 PULMONARY MINUTES SBSQ 70189 [facility] 2 Y [facility] CARE/DAY ASSOCIATE 35 S MINUTES ECG 87064 [facility] [place] 2 [facility] W/LEAST PSC 12 LDS I&R ONLY SBSQ 50479 [facility] 2 INPATIENT CARE/DAY MEDICINE 25 MINUTES RADIOLOGI 77648 [facility] RHETT SANDOVAL C 2 RADIOLOGY III KEITH EXAMINATI ON CHEST SINGLE VIEW FRONTAL CRITICAL 86395 [facility] 2 SUZANNE ANA ILL/INJUR EAST ED PULMONARY PATIENT INIT 30-74 MIN CRITICAL 51410 [facility] 2 SUZANNE ANA ILL/INJUR [facility] ED PULMONARY PATIENT INIT 30-74 MIN RADIOLOGI 12896 [facility] RHETT SANDOVAL C 2 RADIOLOGY III KEITH EXAMINATI ON CHEST SINGLE VIEW FRONTAL SBSQ 15046 [facility] 2 INPATIENT CARE/DAY MEDICINE 25 MINUTES SBSQ 53988 [facility] 2 INPATIENT ARU CARE/DAY MEDICINE 25 MINUTES SBSQ 33419 [facility] 2 Y [facility] CARE/DAY ASSOCIATE 35 S MINUTES RADIOLOGI 66983 [facility] RHETT HIGGINS C 2 RADIOLOGY STEPHANY EXAMINATI ON CHEST SINGLE VIEW FRONTAL CRITICAL 65636 [facility] CARE 2 SUZANNE ILL/INJUR [facility] ED PULMONARY PATIENT INIT 30-74 MIN CRITICAL 66388 [facility] 2 SUZANNE SAWYER ILL/INJUR [facility] ED PULMONARY PATIENT INIT 30-74 MIN INITIAL 78751 [facility]OLOG [facility] 2 Y THO CARE/DAY ASSOCIATE 70 S MINUTES RADIOLOGI 23220 [facility] [place] C 2 RADIOLOGY LD IV A EXAMINATI ON CHEST SINGLE VIEW FRONTAL DAILY 23476 [facility] 2 A [facility] ASSOCIATE EDRL/PAULETTE S PSC CH CONT DRUG ADMN INSERTION 9604 [facility] OF [address] [place] [address] ENDOTRACH EAL TUBE ARTERIAL [address] ZATION CENTRAL [address] CATHETER PLACEMENT WITH GUIDANCE CONT [address] MECH VENT 96 CONSECUTI VE HRS/[place] [address] [facility] [place] IRVIN RETROPERI 2 RADIOLOGY RAY TONEAL REAL TIME W/IMAGE LIMITED SBSQ 39811 [facility] 2 INPATIENT ARU CARE/DAY MEDICINE 35 MINUTES INSJ 85055 [facility] NON-TUNNE 2 SUZANNE SAWYER LED [facility] CENTRAL PULMONARY VENOUS CATH AGE 4 YR/> ARTL 92845 [facility] CATHJ/CAN 2 SUZANNE [facility]WYER [facility] MN[facility]/SWIFT [place]MON[place] [address] [facility] 2 [facility] PSC GROSS&MIGUEL ROSCOPIC EXAM NEPHRECTO 56830 [facility] MY 2 [place] JR THO PARTIAL CLINIC PSC ANES 21142 ANESTHESI ALEX XTRPRTL 2 A STA LOWER ABD ASSOCIATE UR TRACT S PSC RENAL DON NFRCT ECG 45673 STEPHANIE WISE ROUTINE 2 [facility] ECG CLINIC W/LEAST PSC 12 LDS I&R ONLY PARTIAL 554 [facility] NEPHRECT[address] [facility] [address] [facility] MY INITIAL 56653 [facility] 2 INPATIENT ARU CARE/DAY MEDICINE 70 MINUTES NJXS 09246 ANESTHESI VANCE INFUS/MAITE 2 A SCO US ASSOCIATE DX/SBST S PSC EDRL/SUBA PETER CRV/THRC ECG 68615 [facility] [place] ROUTINE 2 [place] MAT ECG CLINIC W/LEAST PSC 12 LDS I&R ONLY RADIOLOGI 49629 [facility] [place] MAT C EXAM 2 RADIOLOGY CHEST 2 VIEWS FRONTAL&L ATERAL PRTBLE E0431 ABDON COPPOLA GASEOUS 2 HOME HOME O2 SYS MEDICAL MEDICAL RENT; EQUIPME EQUIPME FLWMTR HUMIDFR&M ASK O2 CONC 1 E1390 ABDON COPPOLA DEL PORT 2 HOME HOME 85%/>02 MEDICAL MEDICAL CONC AT EQUIPME EQUIPME PRSC FLW RATE PROTHROMB 33406 COMBINED COMBINED IN TIME 2 PHYSICIAN PHYSICIAN S LA S LA COLLECTIO 71246 COMBINED COMBINED N VENOUS 2 PHYSICIAN PHYSICIAN BLOOD S LA S LA VENIPUNCT URE URNLS DIP 95488 PODIATRIC SL[place] 2 FOOT & JR THO STICK/TAB ANKLE LET RGNT SPECI AUTO W/O MICROSCOP Y HEMOGLOBI 39862 [facility] 2 GLYCOSYLA CORTNEY A1C PROTHROMB 19209 COMBINED COMBINED IN TIME 2 PHYSICIAN PHYSICIAN S LA S LA COLLECTIO 39936 COMBINED COMBINED N VENOUS 2 PHYSICIAN PHYSICIAN BLOOD S LA S LA VENIPUNCT URE COLLECTIO 76392 COMBINED COMBINED N VENOUS 2 PHYSICIAN PHYSICIAN BLOOD S LA S LA VENIPUNCT URE PROTHROMB 46436 COMBINED COMBINED IN TIME 2 PHYSICIAN PHYSICIAN S LA S LA URNLS DIP 29521 [facility] 2 [place] THO STICK/TAB CLINIC LET PSC REAGENT AUTO MICROSCOP Y PROTHROMB 56962 COMBINED COMBINED IN TIME 2 PHYSICIAN PHYSICIAN S LA S LA COLLECTIO 85434 COMBINED COMBINED N VENOUS 2 PHYSICIAN PHYSICIAN BLOOD S LA S LA VENIPUNCT URE COLLECTIO 43073 COMBINED COMBINED N VENOUS 2 PHYSICIAN PHYSICIAN BLOOD S LA S LA VENIPUNCT URE PROTHROMB 24139 COMBINED COMBINED IN TIME 2 PHYSICIAN PHYSICIAN S LA S LA PROTHROMB 49885 COMBINED COMBINED IN TIME 2 PHYSICIAN PHYSICIAN S LA S LA COLLECTIO 82993 COMBINED COMBINED N VENOUS 2 PHYSICIAN PHYSICIAN BLOOD S LA S LA VENIPUNCT URE COLLECTIO 13438 COMBINED COMBINED N VENOUS 2 PHYSICIAN PHYSICIAN BLOOD S LA S LA VENIPUNCT URE PROTHROMB 63280 COMBINED COMBINED IN TIME 2 PHYSICIAN PHYSICIAN S LA S LA PROTHROMB 10833 COMBINED COMBINED IN TIME 2 PHYSICIAN PHYSICIAN S LA S LA URNLS DIP [address]/[facility] H[facility] [place] [address] [place] [place] ABDOMEN & 2 RADIOLOGY RHO PELVIS W/O CONTRST 1/> BODY RE CT THORAX 14225 [facility] [place] 2 RADIOLOGY RHO W/CONTRAS T MATERIAL CLOTTING 82608 [facility] INHIBITOR 2 AMERIC AMERIC S PROTEIN HOLDINGS HOLDINGS C ACTIVITY COLLECTIO 45488 COMBINED COMBINED N VENOUS 2 PHYSICIAN PHYSICIAN BLOOD S LA S LA VENIPUNCT URE CLOTTING 39045 [facility] INHIBITOR 2 AMERIC AMERIC S [employer] HOLDINGS S FREE CYSTOURET 56096 PODIATRIC [place] HROSCOPY 2 FOOT & THO ANKLE SPECI COLLECTIO 40026 COMBINED COMBINED N VENOUS 2 PHYSICIAN PHYSICIAN BLOOD S LA S LA VENIPUNCT URE PROTHROMB 34364 COMBINED COMBINED IN TIME 2 PHYSICIAN PHYSICIAN S LA S LA ECHO 49149 [facility] CENTRAL TTHRC R-T 2 GNOSTICISM GNOSTICISM 2D HOSP HOSP W/WOM-MOD E COMPL SPEC&COLR D O2 CONC 1 E1390 ABDON COPPOLA DEL PORT 2 HOME HOME 85%/>02 MEDICAL MEDICAL CONC AT EQUIPME EQUIPME PRSC FLW RATE PRTBLE E0431 ABDON COPPOLA GASEOUS 2 HOME HOME O2 SYS MEDICAL MEDICAL RENT; EQUIPME EQUIPME FLWMTR HUMIDFR&M ASK HEMOGLOBI 72411 COMBINED COMBINED N 2 PHYSICIAN PHYSICIAN GLYCOSYLA S LA S LA CORTNEY A1C BLOOD 16901 COMBINED COMBINED COUNT 2 PHYSICIAN PHYSICIAN COMPLETE S LA S LA AUTO&AUTO DIFRNTL WBC PROTHROMB 28056 COMBINED COMBINED IN TIME 2 PH[place] [address] COMBINED COMBINED THYROID 2 PHYSICIAN PHYSICIAN STIMULATI [place] [address] COMBINED COMBINED FREE 2 PHYSICIAN PHYSICIAN THYROXINE S LA S LA COMPREHEN 39183 COMBINED COMBINED SIVE 2 PHYSICIAN PHYSICIAN METABOLIC S LA S LA PANEL COLLECTIO 17689 COMBINED COMBINED N VENOUS 2 PHYSICIAN PHYSICIAN BLOOD S LA S LA VENIPUNCT URE RADIOLOGI 18208 CENTRAL FRY C EXAM 2 RADIOLOGY JAMES CHEST 2 ASSOC VIEWS FRONTAL&L ATERAL COMPREHEN 35327 [facility]TR[facility] SIVE 2 GNOSTICISM GNOSTICISM METABOLIC HOSP HOSP PANEL NONCOVERE A9270 CEN[facility]AL CENTRAL D ITEM OR 2 GNOSTICISM GNOSTICISM [facility]ICE [facility] HOSP PROTHROMB 83321 CENTRAL CENTRAL IN TIME 2 GNOSTICISM GNOSTICISM HOSP HOSP NATRIURET 80614 CENTRAL CENTRAL IC 2 GNOSTICISM GNOSTICISM PEPTIDE HOSP HOSP BLOOD 87865 [facility]EN[facility]AL CENTRAL COUNT 2 GNOSTICISM GNOSTICISM COMPLETE HOSP HOSP AUTO&AUTO DIFRNTL WBC THER 51086 [facility] CENTRAL PROPH/DX 2 GNOSTICISM GNOSTICISM NJX IV HOSP HOSP PUSH SINGLE/1S T SBST/DRUG PROTHROMB 28275 COMBINED COMBINED IN TIME 2 PHYSICIAN PHYSICIAN S LA S LA COLLECTIO 16826 COMBINED COMBINED N VENOUS 2 PHYSICIAN PHYSICIAN [place] [address] [facility] ABDOMEN & 2 [facility] PELVIS [facility] HOSPITAL W/CONTRAS T MATERIAL COLLECTIO 07252 [facility] N VENOUS 2 [facility] VENIPUNCT URE URNLS DIP [address] STICK/TAB HOSPITAL HOSPITAL LET REAGENT AUTO MICROSCOP Y BASIC 29115 [facility] METABOLIC 2 [facility] CALCIUM TOTAL PROTHROMB 34167 [facility] IN TIME 2 [facility] THER 94337 YNES QUICK PROPH/DX 2 [facility] HOSPITAL PUSH SINGLE/1S T SBST/DRUG BLOOD 19856 YNES QUICK COUNT 2 [facility] AUTO&AUTO DIFRNTL WBC PROTHROMB 88434 COMBINED COMBINED IN TIME 2 PHYSICIAN PHYSICIAN S LA S LA COLLECTIO 56230 COMBINED COMBINED N VENOUS 2 PHYSICIAN PHYSICIAN BLOOD S LA S LA VENIPUNCT [facility] 94880 [facility] 2 MEDICINE DEN DAY SERV MANAGEMEN @CTRL BAP T > 30 MIN SBSQ 31381 [place] [address] MEDICINE DEN CARE/DAY SERVICES 25 MINUTES SBSQ 70865 [place] [address] MEDICINE DEN CARE/DAY SERVICES 25 MINUTES SBSQ 82250 [place] [address] MEDICINE DEN CARE/DAY SERVICES 35 MINUTES SBSQ 93485 [place] [address] MEDICINE DEN CARE/DAY SERVICES 35 MINUTES SBSQ 91117 [place] [address] MEDICINE CARE/DAY SERV 35 @CTRL BAP MINUTES INITIAL [address] CARE/DAY CLINIC 50 PSC MINUTES SBSQ 65453 [place] [address] ONCOLOGY CARE/DAY ASSOCIATE 15 S MINUTES INITIAL [address] CARE/[place] [address] [place] [address] CEN[facility]AL GRAZA ADA ABDOMEN & 2 RADIOLOGY PELVIS ASSOC W/O CONTRAST MATERIAL DUP-SCAN 28531 [facility] XTR VEINS 2 ANT COMPLETE CARDIOLOG Y AT CENT BILATERAL STUDY INTRO 05737 KEE SWEET CATHETER 2 THO THO SUPERIOR/ INFERIOR [place] 90521 KEE SCHWCATA INTRVAS 2 THO THO VC FILTR W/WO VAS ACS VSL SELXN RS&I ANGIOCARD 8851 CEN[facility]AL CENTRAL IOGRAPHY 2 [facility] CAVAE INTERRUPT 387 CENTRAL CENTRAL ION OF 2 GNOSTICISM [facility]NOST[facility]ISM [facility] CAVA VENOGRAPH 74653 [facility] SCHWARC[facility] Y CAVAL 2 SURGICAL THO INFERIOR ASSOCIATE SERIALOGR S APHY RS&I ECHO 53798 [facility] TTHRC R-T 2 IV HEN 2D CARDIOLOG W/WOM-MOD Y AT CENT E COMPL SPEC&COLR D ECG 32914 [facility] BUSTAMANTE ROUTINE 2 EMERGENCY EMERGENCY ECG SERVICES SERVICES W/LEAST 12 LDS I&R ONLY RADIOLOGI 90008 [facility] [place] SCALF MOUSTAPHA C EXAM 2 RADIOLOGY CHEST 2 VIEWS FRONTAL&L ATERAL COMPREHEN 99977 YNES QUICK SIVE 2 [facility] PANEL COLLECTIO 27722 YNES QUICK N VENOUS 2 [facility] VENIPUNCT URE THERAPEUT 11737 [facility] LUD[facility] IC 2 [facility] IV PUSH EACH NEW DRUG THROMBOPL 90556 YNES QUICK ASTIN 2 [facility] PARTIAL PLASMA/WH OLE BLOOD PROTHROMB 82013 YNES QUICK IN TIME 2 [facility] RADIOLOGI 72893 ROB[facility] BUSTAMANTE C 2 EMERGENCY EMERGENCY EXAMINATI SERVICES SERVICES ON CHEST SINGLE VIEW FRONTAL THER 06084 YNES QUICK PROPH/DX 2 [facility] HOSPITAL PUSH SINGLE/1S T SBST/DRUG FIBRIN 83800 YNES QUICK DGRADJ 2 [facility] D-DIMER QUANTITAT JOANIE ECG 72324 RASHIDAGENESIS QUICK ROUTINE 2 [facility] HOSPITAL W/LEAST 12 LDS TRCG ONLY W/O I&R THERAPEUT 22420 YNES QUICK IC 2 [facility] TIC/DX INJECTION SUBQ/IM CULTURE 88918 [facility] QUICK BACTERIAL 2 [facility] AEROBIC W/ID ISOLATES CT THORAX 20440 YNES QUICK [address] [place] [address]/[facility] T MATERIAL BLOOD 32988 YNES QUICK COUNT 2 [facility] AUTO&AUTO DIFRNTL WBC PRTBLE E0431 ABDON COPPOLA GASEOUS 2 HOME HOME O2 SYS MEDICAL MEDICAL RENT; EQUIPME EQUIPME FLWMTR HUMIDFR&M ASK O2 CONC 1 E1390 ABDON ABDON DEL PORT 2 HOME HOME 85%/>02 MEDICAL MEDICAL CONC AT EQUIPME EQUIPME PRSC FLW RATE PROTHROMB 47247 [facility] LAB [facility] IN TIME 2 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 CUL BACT [address] XCPT 2 [facility] URINE INC INC BLOOD/STO OL AEROBIC ISOL SMR PRIM [address] SRC 2 [facility] GRAM/GIEM INC INC SA STAIN BCT FUNGI/LEODAN L CULTURE [address] BACTERIAL 2 [facility] BLOOD INC INC AEROBIC W/[place] [address] LAB [facility] PROSTATE 2 AMERIC [employer] 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 TOTAL BLOOD [address] COUNT 2 [facility] COMPLETE INC INC AUTO&AUTO DIFRNTL WBC PRESSURIZ [address] ED/NONPRE 2 [facility] SSURIZED [place] [address] INFUSION 2 [facility] THERAPY/P INC INC ROPHYLAXI S /DX 1ST TO [address] IC 2 [facility] INJECTION INC INC IV PUSH EACH NEW DRUG BASIC 89188 [facility] METABOLIC 2 AMERIC 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 CYTP 25785 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 2 Y MONICA OF Y MONICA OF CELL LINDA LINDA ENHANCEME H H NT INTERPJ XCPT C/V URNLS DIP 03024 [facility] 2 GERLAW THO STICK/TAB CLINIC LET PSC REAGENT AUTO MICROSCOP Y RADIOLOGI [address] C EXAM 2 [facility] CHEST 2 INC INC VIEWS FRONTAL&L ATERAL PRTBLE E0431 ABDON ABDON GASEOUS 2 HOME HOME O2 SYS MEDICAL MEDICAL RENT; EQUIPME EQUIPME FLWMTR HUMIDFR&M ASK O2 CONC 1 E1390 ABDON COPPOLA DEL PORT 2 HOME HOME 85%/>02 MEDICAL MEDICAL CONC AT EQUIPME EQUIPME PRSC FLW RATE MRI BRAIN 40590 NEURODIAG [place] BRAIN 2 NOSTICPSC ROL STEM W/[place] [address] HEAD/BRAI 2 [facility] N W/O INC INC CONTRAST MATERIAL THERAPEUT [address] IC 2 [facility] PROPHYLAC INC INC TIC/DX INJECTION SUBQ/IM 3D [address] RENDERING 2 [facility] W/INTERP INC INC & POSTPROCE SS SUPERVISI ON CT ORBIT 15796 NIKA ARENAS SELLA/POS 2 MEDICAL STEFF T IMAGING FOSSA/EAR ASS W/O CONTRAST MATRL COLLECTIO 64181 [place] N VENOUS 2 [facility] VENIPUNCT URE PROTHROMB 08394 [place] IN TIME 2 [facility] PROTHROMB 06730 [place] IN TIME 2 [facility] COLLECTIO 44033 [place] N VENOUS 2 [facility] URE RADIOLOGI 35406 [place] C EXAM [address] VIEWS FRONTAL&L ATERAL DUP-SCAN 06830 [facility] XTR VEINS 2 SUZANNE III J COMPLETE CARDIOLOG Y CLINIC BILATERAL STUDY O2 CONC 1 E1390 ABDON COPPOLA DEL PORT 2 HOME HOME 85%/>02 MEDICAL MEDICAL CONC AT EQUIPME EQUIPME [facility] FLW RATE PRTBLE E0431 ABDON COPPOLA GASEOUS 2 HOME HOME O2 SYS MEDICAL MEDICAL RENT; EQUIPME EQUIPME FLWMTR [facility] 99317 [facility] 2 EMERGENCY DENISE DAY SERVICES MANAGEMEN T > 30 MIN SBSQ 74841 [facility] 2 EMERGENCY DENISE CARE/DAY SERVICES 25 MINUTES SBSQ 66364 [facility] 2 EMERGENCY DENISE CARE/DAY SERVICES 25 MINUTES SBSQ 45591 [facility] 2 EMERGENCY DENISE CARE/DAY SERVICES 25 MINUTES ECHO 09968 PEPE NEVAREZ NEVAREZ PEPE TTHRC R-T 2 2D CONSULTIN W/WOM-MOD G SERV E COMPL SPEC&COLR D INITIAL 13897 [facility] 2 EMERGENCY DENISE CARE/DAY SERVICES 70 MINUTES DUP-SCAN 57849 PEPE NEVAREZ NEVAREZ PEPE XTR VEINS 2 MD COMPLETE CONSULTIN G SERV BILATERAL STUDY RADIOLOGI 69121 [facility] [place] MAT C 2 RADIOLOGY EXAMINATI ON CHEST SINGLE VIEW FRONTAL CT THORAX 59964 [facility] [place] IRVIN 2 RADIOLOGY RAY W/CONTRAS T MATERIAL CRITICAL 62482 [facility] CARE 2 EMERGENCY ILL/INJUR SERVICES ED PATIENT INIT 30-74 MIN ECG 91287 [facility] CHAUDHRY ROUTINE 2 EMERGENCY ECG SERVICES W/LEAST 12 LDS I&R ONLY COMPREHEN 43994 [facility] SIVE 2 GNOSTICISM GNO[facility] METABOLIC HOSP HOSP PANEL BLOOD 02238 CEN[facility]AL CENTRAL COUNT 2 GNOSTICISM GNOSTICISM COMPLETE HOSP HOSP AUTO&[place] [address] CENTRAL CENTRAL BLOOD/URI 2 GNOSTICISM GNOSTICISM C ACID HOSP HOSP CULTURE 59744 CENTRAL CENTRAL BACTERIAL 2 GNOSTICISM GNOSTICISM HOSP HOSP QUANTTATI VE COLONY COUNT URINE URNLS DIP 41443 CENTRAL CENTRAL 2 GNOSTICISM GNOSTICISM STICK/TAB HOSP HOSP LET REAGENT AUTO MICROSCOP Y URNLS DIP 82364 [facility] 2 STICK/TAB LET RGNT NON-AUTO W/O MICRSCP IAADIADOO 78346 WEST [facility] WEST MUR 2 STREPTOCO CCUS GROUP A HEMOGLOBI 77341 WEST M[facility] WEST MUR N 2 GLYCOSYLA CORTNEY A1C BLOOD [address] GASES ANY 2 MEM [facility] INC INC COMBINATI ON PH PCO2 PO2 CO2 HCO3 RADIOLOGI [address] C 2 MEM [facility]OS[facility] EXAMINATI INC INC ON CHEST SINGLE VIEW FRONTAL NATRIURET [address] IC 2 MEM [facility] [place] [address] TROPONIN 2 MEM H[facility] MEM HOS[facility] QUANTITAT INC INC JOANIE BLOOD [address] COUNT 2 [facility] COMPLETE INC INC AUTO&AUTO DIFRNTL WBC CULTURE [address] BACTERIAL 2 [facility] BLOOD INC INC AEROBIC W/ID ISOLATES ECG [address] ROUTINE 2 [facility] ECG INC INC W/LEAST 12 LDS TRCG ONLY W/O I&R CREATINE [address] KINASE 2 [facility] TOTAL INC INC IAADI [address] INFLUENZA 2 [facility] B VIRUS INC INC IAADI [address] INFFLUENZ 2 MEM [facility]OS[facility] A A VIRUS INC INC CREATINE [address] KINASE MB 2 MEM HOS[facility] MEM [facility]OS[facility] FRACTION INC INC ONLY THERAPEUT [address] IC 2 [facility] INJECTION INC [place] [address] INFUSION 2 [facility] THERAPY/P INC INC ROPHYLAXI S /DX 1ST TO [address] ED/NONPRE 2 [facility]OS[facility] SSURIZED INC INC INHALATIO N TREATMENT COMPREHEN [address] SIVE 2 [facility] METABOLIC INC INC PANEL ECG [address] ROUTINE 2 [facility] W/LEAST P P 12 LDS I&[place] [address] [facility] [place] MAT HEAD/BRAI 1 RADIOLOGY N W/O CONTRAST MATERIAL BLOOD [address] COUNT 1 [facility] COMPLETE INC INC AUTO&AUTO DIFRNTL WBC COMPREHEN [address] SIVE 1 [facility]OS[facility] METABOLIC INC INC PANEL INSJ TEMP 68431 [place] NDWELLG 1 MEM [facility]OS[facility] BLADDER INC INC CATHETER SIMPLE URNLS DIP [address] 1 [facility]OS[facility] STICK/TAB INC INC LET REAGENT AUTO MICROSCOP Y SPMTRY 69377 WEST MUR WEST MUR W/VC 1 EXPIRATOR Y HANSEL W/WO MXML VOL VNTJ FLUOROSCO 06803 ADV[facility]ED ADVANCED PIC 1 PAIN PAIN GUIDANCE MEDICIINE MEDICIINE NEEDLE PSC PSC PLACEMENT ADD ON MULTIPLE 90711 ADVANCED ADVANCED NERVE 1 PAIN PAIN BLOCK MEDICIINE MEDICIINE INJECTION PSC PSC S RIB NERVES BLOOD 09612 [facility] 1 [facility] MCRSCP W/MNL DIFRNTL WBC COUNT RADEX 09020 [facility] [place] SPINE 1 RADIOLOGY RHO THORACIC 2 VIEWS HEMOGLOBI 58807 [facility] N 1 [facility] CORTNEY A1C BLOOD 98948 [facility] COUNT 1 [facility] AUTOMATED RADIOLOGI 14388 [facility] [place] C EXAM 1 RADIOLOGY RHO CHEST 2 VIEWS FRONTAL&L ATERAL COLLECTIO 55752 [facility] N VENOUS 1 [facility] VENIPUNCT URE LIPID 74303 [facility] PANEL 1 [facility] COMPREHEN 51934 [facility] SIVE 1 [facility] PANEL URNLS DIP 47882 [facility] 1 [facility] STICK/TAB HOSPITAL HOSPITAL LET [place] [address] [facility] THYROID 1 [facility] STIMULATI [facility] [place] [address] [facility] FREE 1 [facility] THYROXINE [facility] INJECTION 58772 ADVANCED [place] 1 PAIN [place] ANESTHETI MEDICIINE C AGENT PSC [facility] NRV INJECTION J3301 ADVANCED [place] 1 PAIN [place] TRIAMCINO MEDICIINE LONE PSC ACETONIDE NOS 10 MG INJECTION J3301 ADVANCED [place] 1 PAIN [place] TRIAMCINO MEDICIINE LONE PSC ACETONIDE NOS 10 MG NJX 13726 [facility] [place] DX/THER 1 [facility] [place] AGT PVRT MEDICIINE FACET JT PSC CRV/THRC 1 LEVEL LOCM Q9965 [facility] 100-199 1 [facility] [place] MG/ML MEDICIINE IODINE PSC CONCENTRA TION PER ML MODERATE 17934 [facility] [place] SEDATJ 1 [facility] [place] SAME MEDICIINE PHYS/QHP PSC 5/>YRS INIT 30 MIN NJX 15599 [facility]ED [place] DX/THER 1 [place] AGT PVRT MEDICIINE FACET JT PSC CRV/THRC 2ND LEVEL NJX 93268 AD[facility]ANCED [place] DX/THER 1 [place] AGT PVRT MEDICIINE FACET JT PSC CRV/THRC 3+ LEVEL INFLUENZA Q2038 [facility] MUR VACC 1 SPLIT VIRUS 3 YRS & > IM FLUZONE ADMINISTR G0008 [facility] 1 INFLUENZA VIRUS VACCINE OPHTH 66182 [facility] 1 VISION XM&EVAL COMPRE NEW PT 1/> VST NJX 12586 AD[facility]ED [place] DX/THER 1 [facility] [place] SBST MEDICIINE EPIDURAL/ PSC SUBRACH CERV/THOR ACIC MODERATE 24402 [facility] [place] SEDATJ 1 PAIN [place] SAME MEDICIINE PHYS/QHP PSC 5/>YRS INIT 30 MIN INJECTION J3301 [facility]ED [place] 1 PAIN [place] TRIAMCINO MEDICIINE LONE PSC ACETONIDE NOS 10 MG FLUOR 82612 [facility] NEEDLE/CA 1 PAIN [place] TH MEDICIINE SPINE/PAR PSC ASPINAL DX/THER ADDON HEMOGLOBI 21814 [facility] MUR N 1 GLYCOSYLA CORTNEY A1C NJX 92772 [facility] DX/THER 1 [facility]IN [place] AGT PVRT MEDICIINE FACET JT PSC CRV/THRC 2ND LEVEL NJX 98818 [facility] DX/THER 1 [place]IN [place] AGT PVRT MEDICIINE FACET JT PSC CRV/THRC 3+ LEVEL INJECTION J3301 [facility] 1 [facility]IN [place] TRIAMCINO MEDICIINE LONE PSC ACETONIDE NOS 10 MG MODERATE 18891 [facility] SEDATJ 1 PAIN [place] SAME MEDICIINE PHYS/QHP PSC 5/>YRS INIT 30 MIN LOCM Q9965 [facility] 100-199 1 PAIN [place] MG/ML MEDICIINE IODINE PSC CONCENTRA TION PER ML NJX 12092 [facility] DX/THER 1 PAIN [place] AGT PVRT MEDICIINE FACET JT PSC CRV/THRC 1 LEVEL INJECTION J1030 [facility] METHYLPRE DNISOLONE ACETATE 40 MG INJECTION J1100 [facility] 1 DEXAMETHO SONE SODIUM PHOSPHATE 1 MG MRI 94844 [facility] [place] SPINAL 1 NOSTICPSC ROL CANAL THORACIC W/O CONTRAST MATRL MRI 86333 [facility] [place] SPINAL 1 NOSTICPSC ROL CANAL LUMBAR W/O CONTRAST MATERIAL MRI 87686 [facility] [place] ABDOMEN 1 NOSTICPSC ROL W/O & W/CONTRAS T MATERIAL MRI 07397 [facility]ON SPINAL 1 [facility] CANAL INC INC CERVICAL W/O CONTRAST MATRL 3D [address] RENDERING 1 [facility] W/INTERP INC INC & POSTPROCE SS SUPERVISI ON PROSTATE G0103 [facility] 1 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 ; PSA TEST CT THORAX 61762 [facility] [place] JAIME W/O [address] [place] [address] [facility] [place]TT SANDOVAL ABDOMEN 1 RADIOLOGY KEITH W/O CONTRAST MATERIAL RADIOLOGI 02881 [facility] [place] SEAN G C EXAM 1 RADIOLOGY CHEST 2 VIEWS FRONTAL&L ATERAL HEMOGLOBI 89769 [facility] N 1 GLYCOSYLA CORTNEY A1C NATRIURET 36322 [facility] IC 1 [facility] BLOOD 75559 [facility] COUNT 1 [facility] AUTO&[place] [address] [facility] TROPONIN 1 [facility] JOANIE ECG 03415 [facility] ROUTINE 1 [facility] W/LEAST 12 LDS TRCG ONLY W/O I&R THER 24949 [facility] QUICK PROPH/DX 1 [facility] PUSH SINGLE/1S T SBST/DRUG FIBRIN 63270 [facility] DGRADJ 1 [facility] D-DIMER QUAL/SEMI FLACO PROTHROMB 59618 [facility] LUDWIG IN TIME 1 [facility] THROMBOPL 75035 [facility] ASTIN 1 [facility] PARTIAL PLASMA/WH OLE BLOOD RADIOLOGI 93887 [facility] [place] CARINA MAT C EXAM 1 RADIOLOGY CHEST 2 VIEWS FRONTAL&L ATERAL COLLECTIO 11710 [facility] N VENOUS 1 [facility] VENIPUNCT URE COMPREHEN 97948 [facility] SIVE 1 [facility] PANEL Encounters Encounter Start End Date Code Location Performer Type Date [facility]OSPITAL [facility] - 7 7 [facility] T OFFICE 92503 [facility] 7 7 PHYSICIAN T VISIT PRACTICE 25 L MINUTES EMERGENCY 51981 ADRIANE BURKS 7 7 PHYSICIAN U [facility]PART[facility], [facility] T VISIT HIGH/URGE NT SEVERITY [facility] 7 7 [facility]AVERLY - 7 7 [facility] T OFFICE 85876 STEPHANIE SILVA [facility] 7 7 [place] [facility] 25 PSC MINUTES OFFICE 85865 [facility] 7 7 PHYSICIAN T [facility]ISIT PRACTICE 15 L MINUTES OFFICE 14759 [facility] 7 7 PHYSICIAN T VISIT PRACTICE 15 L MINUTES EMERGENCY 57282 [facility] DEPT 7 7 JEROD VISIT EMERGENCY HIGH PHYS SEVERITY& THREAT FUNCJ OFFICE 53129 [facility] 7 7 [place] T [facility]INIC 40 PSC MINUTES HOSPITAL [facility] - 7 7 [facility] OFF[facility] 85780 [facility] 7 7 PHYSICIAN T VISIT PRACTICE 15 L MINUTES OFFICE 46729 [facility] 7 7 Y T VISIT ASSOCIATE 25 S OF CIELO MINUTES EMERGENCY 72061 ADRIANE GOLDSMITH 7 7 PHYSICIAN DEPARTMEN S, PLLC T VISIT HIGH/URGE NT SEVERITY OFFICE 72151 YNES TATE [facility] 7 7 PHYSICIAN T VISIT PRACTICE 15 L MINUTES [facility] [place] [facility] 7 7 [facility] T OFFICE 91686 YNES TATE [facility] 7 7 PHYSICIAN T VISIT PRACTICE 15 L MINUTES OFFICE 91863 [facility] 7 7 [place] T [facility] 15 PSC MINUTES EMERGENCY 36872 [place] 7 7 [facility] T VISIT MODERATE SEVERITY [facility] [place] - 7 7 [facility] OUT[facility]IEN [facility] OZIELON - 6 6 [facility] T EMERGENCY 58510 [place] THE 6 6 [facility] STRIDE DEPARTMEN INC PROGRAM T VISIT HIGH/URGE NT SEVERITY [facility]OSP[facility] [place] - 6 6 [facility] T OFFICE 45391 [facility] 6 6 [place] JUS T VISIT CLINIC 15 PSC MINUTES OFFICE 72264 [facility] 6 [place] T VISIT ASSOCIATE 40 S OF CIELO MINUTES [facility]OSPITAL [facility] - 6 6 EAST OUTPATIEN T OFFICE 07372 DAPHNE DAPHNE OUTPATIEN 6 6 ANA ANA T NEW 45 MINUTES OFFICE 11287 YENY AJI VIOLET OUTPATIEN 6 6 [facility] T VISIT MEDICAL 15 G MINUTES OFFICE 50051 YENY LUU VIOLET OUTPATIEN 6 6 [facility] T NEW 45 MEDICAL MINUTES G HOSPITAL [facility] - 6 6 [facility] T OFFICE 59193 PEPE NEVAREZ NEVAREZ PEPE OUTPATIEN 5 5 T VISIT CONSULTIN 40 G SRV MINUTES EMERGENCY 03252 [facility] 5 5 [facility] DEPARTMEN INC T VISIT MODERATE SEVERITY [facility] [place] - 5 5 [facility] OUTPATIEN INC T OFFICE 10290 [facility]IE SILVA OUTPATIEN 5 5 [facility] JUS T VISIT CLINIC 15 PSC MINUTES [facility] - 5 5 [facility] OUTPATIEN INC T OFFICE 13144 VIJAY GARLAND BUX ANJ OUTPATIEN 5 5 T NEW 30 MINUTES [facility] - 5 5 [facility] OUTPATIEN [facility] [place] - 5 5 [facility] OUTPATIEN INC [facility] [place] [facility] 5 5 [facility] OUTPATIEN [facility] UNIVERSIT - 5 5 Y INPATIENT HOSPITAL OFFICE 16902 [facility]VA OUTPATIEN 5 5 [facility] 15 PSC MINUTES OFFICE 82738 [facility] OUTPATIEN 2 2 T VISIT 25 MINUTES EMERGENCY 66883 [facility] 2 2 GNOSTICISM DEPARTMEN HOSP T VISIT HIGH/URGE NT SEVERITY HOSPITAL [facility] - 2 2 [facility]NO[facility] OUTPATIEN HOSP T OFFICE 74573 [facility] 2 2 T VISIT 25 MINUTES [facility]OSP[facility] [place] - 2 2 [facility] OUTPATIEN INC T EMERGENCY 07232 [facility] 2 2 [facility] DEPARTMEN INC T VISIT HIGH/URGE NT SEVERITY EMERGENCY 24415 ROBBY ZIEGLER DEPT 2 2 EMERGENCY III [facility] HIGH SEVERITY& THREAT FUNCJ OFFICE 64754 [facility] MUR OUTPATIEN 2 2 T VISIT 25 MINUTES HOSPITAL [facility] - 2 2 [facility] OUTPATIEN INC T EMERGENCY 52213 [place] 2 2 [facility] DEPARTMEN INC T VISIT HIGH/URGE NT SEVERITY OFFICE 04927 [facility] MUR OUTPATIEN 2 2 T VISIT 25 MINUTES EMERGENCY 03604 [facility] DEPT 2 2 JEROD VISIT EMERGENCY HIGH PHYS SEVERITY& THREAT FUNCJ OFFICE 52738 [facility] 2 2 T VISIT [address] MINUTES [address] INPATIENT OFFICE 83338 SCHWARCZ SCHWARCZ OUTPATIEN 2 2 THO THO T VISIT 25 MINUTES OFFICE 84741 [facility] OUT[facility] 2 2 FOOT & JR THO T VISIT ANKLE 10 SPECI MINUTES OFFICE 15153 [facility] MUR OUTPATIEN 2 2 T VISIT 15 MINUTES OFFICE 44978 [facility] 2 2 [place] THO T VISIT CLINIC 25 PSC MINUTES [facility] [place] - 2 2 [facility] T OFFICE 94726 [facility] MUR OUTPATIEN 2 2 T VISIT 25 MINUTES OFFICE 12840 [facility] OUTPATIEN 2 2 ONCOLOGY T VISIT ASSOCIATE 15 S MINUTES HOSPITAL [facility] - 2 2 [facility] OUTPATIEN HOSP T HOSPITAL [facility] - 2 2 [facility] OUTPATIEN HOSP T EMERGENCY 44263 [facility] 2 2 [facility] HOSP T VISIT HIGH/URGE NT SEVERITY OFFICE 47591 [facility] 2 2 T VISIT 25 MINUTES [facility] [place] - 2 2 [facility] T EMERGENCY 77333 PING KOEHLER DEPT 2 2 MEDICAL PAT VISIT GROUP, HIGH PLLC SEVERITY& THREAT FUN EMERGENCY 68842 YNES 2 2 [facility] T VISIT HIGH/URGE NT SEVERITY HOSPITAL [facility] - 2 2 [facility] INPATIENT HOSP EMERGENCY 65447 YNES DEPT 2 2 [facility]IGH [facility]VER[facility]& THREAT FUN HOSPITAL YNES - 2 2 [facility] HOSPITAL [place] - 2 2 [facility] T EMERGENCY 30729 ROBBY ALVARADO DEPT 2 2 EMERGENCY [facility] HIGH SEVERITY& THREAT FUNCJ EMERGENCY 67985 [place] 2 2 [facility] INC T VISIT HIGH/URGE NT SEVERITY OFFICE 26317 [facility] OUTPATIEN 2 2 [facility] VISIT CLINIC 40 PSC MINUTES OFFICE 85196 [facility] 2 2 T VISIT 15 MINUTES OFFICE 60964 [facility] 2 2 T VISIT 15 MINUTES EMERGENCY 61232 [place] 2 2 [facility] T VISIT LOW/MODER SEVERITY EMERGENCY 54417 ROBBY ALVARADO 2 2 EMERGENCY [facility] SERVICES T VISIT HIGH/URGE NT SEVERITY HOSPITAL [place] - 2 2 [facility] T OFFICE 14330 YEYO KENNEY OUTPATIEN 2 2 MD RG VIOLET T NEW 60 PSC MINUTES OFFICE 02824 [facility] 2 2 T VISIT 15 MINUTES EMERGENCY 14691 [place] 2 2 [facility] DEPARTMEN INC T VISIT MODERATE SEVERITY EMERGENCY 28593 ROBBY BOLTON DEPT 2 2 EMERGENCY VISIT SERVICES HIGH SEVERITY& THREAT [facility] [place] - 2 2 [facility] [place] T OFFICE 99639 [facility] 2 2 T VISIT 25 MINUTES OFFICE 93484 [facility] 2 2 T VISIT 15 MINUTES [facility] [place] - 2 2 [facility] [place] - 2 2 [facility] T OFFICE 02856 [facility] 2 2 T VISIT 25 MINUTES [facility] [place] - 2 2 [facility]PATIENT [facility] OFFICE 57748 [facility] 2 2 T VISIT 15 MINUTES EMERGENCY 81695 [facility] 2 2 [facility] DEPARTMEN HOSP T VISIT LOW/MODER SEVERITY HOSPITAL [facility] - 2 2 [facility] OUTPATIEN HOSP T OFFICE 46556 [facility] 2 2 T VISIT 25 MINUTES EMERGENCY 14137 ROBYB [place]OL[place] 2 2 EMERGENCY DEPARTMEN SERVICES T VISIT HIGH/URGE NT SEVERITY EMERGENCY 32368 ROBBY RUTH DEPT 2 2 EMERGENCY MIGUEL VISIT SERVICES HIGH SEVERITY& THREAT FUNJ EMERGENCY 84776 [place] 2 2 [facility] DEPARTMEN INC T VISIT HIGH/URGE NT SEVERITY [facility]OSP[facility] [place] - 2 2 [facility]PATIEN [facility] OFFICE 33602 [facility] OUTPATI[facility] 2 2 T [facility]ISIT 15 MINUTES [facility] [place] - 1 1 [facility] [place] - 1 1 [facility] T EMERGENCY 02159 [facility] T VISIT MODERATE SEVERITY EMERGENCY 74801 [facility] BAB SOK[facility] BAB 1 1 DEPARTMEN T VISIT HIGH/URGE NT SEVERITY OFFICE 76335 [facility] 1 1 T VISIT 15 MINUTES OFFICE 14795 [facility] 1 1 T VISIT 15 MINUTES OFFICE 47684 [facility] OUT[facility] 1 1 PAIN T VISIT MEDICIINE 15 PSC MINUTES [facility] [place] - 1 1 [facility] OFFICE 31988 [facility] 1 1 T VISIT 15 MINUTES OFFICE 47306 [facility] OUT[facility] 1 1 PAIN KEYONNA T VISIT MEDICIINE 25 PSC MINUTES OFFICE 56549 [facility] 1 1 T VISIT 15 MINUTES OFFICE 46142 [facility] 1 1 T VISIT 15 MINUTES OFFICE 06054 [facility] OUT[facility] 1 1 PAIN KEYONNA T VISIT MEDICIINE 25 PSC MINUTES OFFICE 97090 [facility] OUT[facility] 1 1 PAIN KEYONNA T VISIT MEDICIINE 40 PSC MINUTES OFFICE 60672 [facility] 1 1 T VISIT 15 MINUTES OFFICE 66882 [facility] 1 1 T VISIT 15 MINUTES OFFICE 18253 [facility] 1 1 T VISIT 25 MINUTES [facility] [place] - 1 1 [facility] T OFFICE 80827 [facility] 1 1 T VISIT 15 MINUTES [facility] [place] - 1 1 [facility] T OFFICE 18456 [facility] 1 1 T VISIT 25 MINUTES OFFICE 88862 [facility] 1 1 T VISIT 25 MINUTES EMERGENCY 08767 [place] 1 1 [facility] T VISIT HIGH/URGE NT [facility] T
--- OUTSIDE RECORDS SUMMARY | 2017-07-09 06:45 | External Medical Summary Rpt | CCD ---
Author Author , RADHA Organization RADHA Address Unknown Phone [email or web address] Care Team Providers Care Process Treater Name Role Phone BELL VIOLET, BELL VIOLET Unavailable Unavailable [facility], [facility] Unavailable Unavailable [facility], [facility] Unavailable Unavailable RONALDO STEPHANY, RONALDO Unavailable Unavailable STEPHANY [facility] Unavailable Unavailable MEDICIINE [facility], [facility] [employer] Unavailable Unavailable INC, [employer] Unavailable Unavailable INC, [employer] [facility] Unavailable Unavailable [facility], [facility] Unavailable Unavailable [facility], [facility] [place] [facility] Unavailable Unavailable ASSOCIATES, [facility] Unavailable Unavailable CRITICAL, [facility] VERDUGO KEYONNA, VERDUGO Unavailable Unavailable KEYONNA ALEX STA, ALEX Unavailable Unavailable STA BESSON, BESSON Unavailable Unavailable [facility] Unavailable Unavailable IMAGING L, [facility] IMAGING L [facility] Unavailable Unavailable HOSPITAL, [facility] PH[facility]IAN Unavailable Unavailable PRACTICE L, [facility] BREAZEALE GRA, Unavailable Unavailable BREAZEALE GRA BUX ANJ, BUX ANJ Unavailable Unavailable JOHN CELINA IGN, Unavailable Unavailable JOHN CELINA IGN [facility], Unavailable Unavailable [facility] Unavailable Unavailable PHYS P[facility], [...] [facility] Unavailable Unavailable [place], [facility] [place] SEAN G, ESTRADA G Unavailable Unavailable EVERMAN VIOLET, EVERMAN Unavailable Unavailable VIOLET BALL THO, Unavailable Unavailable BALL THO KLEIN ALI, KLEIN Unavailable Unavailable ALI VANCE SCO, VANCE Unavailable Unavailable SCO GAGUA IRI, GAGUA IRI Unavailable Unavailable FLORY MIGUEL, FLORY Unavailable Unavailable MIG[facility]EL [facility], [facility] LINDER ISIDORO, LINDER ISIDORO Unavailable Unavailable ADONAY RHO, ADONAY Unavailable Unavailable RHO GUNDUMALLA GOP, Unavailable Unavailable GUNDUMALLA GOP OBREGON PALMIRA, OBREGON Unavailable Unavailable [facility] Unavailable Unavailable INC, [facility] Unavailable Unavailable HOSPITAL P, [facility] HARGROVE GUILHERME, [facility] Unavailable Unavailable LUIS RADHA, LUIS RADHA Unavailable Unavailable JIM KEITH, JIM KEITH Unavailable Unavailable [facility] Unavailable Unavailable @CTRL BAP, [facility] @CTRL [facility] Unavailable Unavailable SERVICES O, [...] KEEDY FRANDY, KEEDY FRANDY Unavailable Unavailable JAIME SANODVAL CHA Unavailable Unavailable KEITH SANDOVAL III KEITH, Unavailable Unavailable JAIME III KEITH [facility] Unavailable Unavailable [facility], [facility] Unavailable Unavailable [facility]ING [facility], [facility] Unavailable [...] LINDA [facility], LABORAT[facility] Unavailable Unavailable LABORATO, [facility] Unavailable Unavailable [facility]ATO, [facility] VIJAY GARLAND MD, VIJAY Unavailable Unavailable DADA SANTOS, KELLY Unavailable Unavailable [facility] Unavailable Unavailable SERVICES, [facility], Unavailable Unavailable PLLC, [facility] Unavailable Unavailable OF [place], [facility] ANKIT DENISE, ANKIT Unavailable Unavailable DENISE [facility], Unavailable Unavailable [facility], Unavailable Unavailable [facility] Unavailable Unavailable [facility] Unavailable Unavailable [facility], [facility]SC PEPE NEVAREZ MD Unavailable Unavailable CONSULTING [...] Unavailable Unavailable PHYSICIAN SERVI, [facility], Unavailable Unavailable [facility], Unavailable Unavailable [facility] Unavailable Unavailable CLINIC, [facility] IRIVN RAY, IRVIN Unavailable Unavailable RAY SWINEY, SWINEY Unavailable Unavailable SWINEY PAT, SWINEY Unavailable Unavailable PAT TALANOW ROL, TALANOW Unavailable Unavailable ROL [facility], Unavailable Unavailable [facility] LUDIVINA III Rafael, LUDIVINA Unavailable Unavailable III J TRUE, TRUE Unavailable Unavailable [facility] Unavailable Unavailable [facility], [facility], Unavailable Unavailable [facility] WEHRMAN III OLGA, Unavailable Unavailable WEHRMAN III [...] OBSTRUCTIVE PULMONARY DISEASE UNS M4802 SPINAL 06-14-2017 [place] STENOSIS [facility] 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 06-03-2017 [place] SINGLE PHYSICIAN THYROID PRACTICE L NODULE G250 ESSENTIAL 06-03-2017 [place] TREMOR PHYSICIAN PRACTICE L G8929 OTHER 06-03-2017 [place] CHRONIC PHYSICIAN PAIN PRACTICE L O20621 UNSPECIFIED 06-01-2017 [facility] CHRONIC [facility]IC[facility]ANS, CONJUNCTIVI PLLC TIS BILATERAL I10 ESSENTIAL 06-01-2017 [facility] PRIMARY [facility]YSICI[facility], HYPERTENSIO PLLC N J0100 ACUTE 06-01-2017 [facility] MAXILLARY PHYSICIANS, SINUSITIS PLLC UNSPECIFIED M542 CERVICALGIA 06-01-2017 [facility], PLLC N289 DISORDER OF 05-12-2017 [facility] UNSPECIFIED D6859 OTHER 04-22-2017 [facility] PRIMARY LINDA THROMBOPHIL [facility] N97520 OTHER LONG 04-22-2017 [place] TERM [facility] HOSPITAL DRUG THERAPY R1012 LEFT UPPER 04-07-2017 [facility] [place] [facility] PAIN R109 UNSPECIFIED 04-07-2017 [place] ABDOMINAL [facility] N189 CHRONIC 03-17-2017 NEW [facility] [place] DISEASE [facility]INIC PSC UNSPECIFIED N390 URINARY 03-17-2017 NEW TRACT [place] INFECTION CLINIC PSC SITE NOT SPECIFIED R609 EDEMA 03-08-2017 [facility] [place] [facility] UNSPECIFIED PHYSICIAN PRACTICE L J159 UNSPECIFIED 12-17-2016 [place] BACTERIAL PHYSICIAN PNEUMONIA PRACTICE L J181 LOBAR 12-14-2016 [facility] PNEUMONIA MEDICINE UNSPECIFIED SERVICES O ORGANISM J441 CHRONIC 12-14-2016 [facility] OBSTRUCTIVE MEDICINE PULMONARY SERVICES O DZ W/EXACERBAT ION N179 ACUTE 12-14-2016 [facility] KIDNEY MEDICINE FAILURE SERVICES O [...] LUNG FIELD C649 MALIGNANT 12-07-2016 NEW NEOPLASM [place] [facility] PSC EXCEPT RENL PELVIS G4733 OBSTRUCTIVE 12-07-2016 NEW SLEEP [place] [facility] ADULT [facility]INIC PSC PEDIATRIC R351 NOCTURIA 12-07-2016 NEW [facility] PSC Z8546 PERSONAL 12-07-2016 NEW HISTORY [place] MALIGNANT CLINIC PSC NEOPLASM OF PROSTATE Z8551 PERSONAL 12-07-2016 NEW HISTORY [place] MALIGNANT CLINIC PSC NEOPLASM OF BLADDER K26831 PAIN IN 12-01-2016 [facility] LEFT MEDICAL SHOULDER IM[facility]ING ASS O79072 OTHER 12-01-2016 [facility] CERVICAL MEDICAL DISC IMAGING ASS DEGENERATIO N AT C5-C6 LEVEL N183 CHRONIC 11-22-2016 [facility] DISEASE OF [place] STAGE 3 MODERATE N3943 POST-VOID 11-22-2016 [facility]Y DRIBBLING ASSOCIATES OF [place] N401 BENIGN 11-22-2016 [facility] PROSTATIC ASSOCIATES HYPERPLASIA OF [place] LW URINARY TRACT SX E119 TYPE 2 11-17-[address] [facility] P WITHOUT COMPLICATIO NS M791 MYALGIA 11-17-2016 [facility], [facility] K06233 PAIN IN 11-17-2016 [facility] LEFT ARM PHYSICIANS, [facility] Z794 HALF-WAY 11-17-2016 [facility] CURRENT USE [facility] INSULIN HOSPITAL P M7989 OTHER 11-15-2016 [facility] SPECIFIED MEM HOSP SOFT TISSUE INC DISORDERS Z720 TOBACCO USE 11-15-2016 [facility] Y13753 PERSONAL 11-15-2016 [facility] HISTORY OT MEDICAL VENOUS IMAGING ASS THROMBOSIS& EMBOLISM E039 HYPOTHYROID 10-29-2016 LAB [facility] ISM LINDA UNSPECIFIED HOLDINGS G894 CHRONIC 10-29-2016 [place] PAIN PHYSICIAN SYNDROME PRACTICE L C61 MALIGNANT 10-28-2016 NEW NEOPLASM OF [place] PROSTATE CLINIC PSC K219 GASTRO-ESOP 10-15-2016 [facility] H REFLUX MEM HOSP DISEASE INC WITHOUT ESOPHAGITIS M545 LOW BACK 10-15-2016 [facility] PAIN MEM HOSP INC R319 HEMATURIA 10-15-2016 [facility] UNSPECIFIED MEM HOSP INC Z721 10-15-2016 [facility] INC 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 IOGRAM M4722 OT 03-04-2016 [facility] ANA SPONDYLOSIS W/RADICULOP ATHY CERVICAL REGION M4727 OTH 03-04-2016 [facility] ANA SPONDYLOSIS W/RADICULOP ATHY LUMBOSACRAL RGN E042 NONTOXIC 02-09-2016 [facility] MULTINODULA STICS INC R GOITER J341 CYST AND 02-09-2016 NEURODIAGNO MUCOCELE OF STICS INC NOSE AND NASAL SINUS J342 DEVIATED 02-09-2016 [facility] NASAL STICS INC SEPTUM R9082 WHITE 02-09-2016 [facility]IAGNO MATTER STICS INC DISEASE UNSPECIFIED F63096 PRESENCE OF 02-03-2016 [facility] OTHER HEALTH VASCULAR MEDICAL G IMPLANTS AND GRAFTS D3002 BENIGN 01-28-2016 [facility] NEOPLASM OF REGIONAL LEFT IMAGING L KIDNEY D59115E OTHER [facility] 01-28-2016 [facility] COMP REGIONAL UMBRELLA IMAGING L DEVICE INITIAL ENCNTR J984 OTHER 12-30-2015 [facility] DISORDERS HEALTH OF LUNG [place] R0600 DYSPNEA 12-30-2015 [facility] UNSPECIFIED [facility]ALTH [facility] 4019 UNSPECIFIED 05-22-2015 [facility] [place] ESSENTIAL HYPERTENSIO CONSULTING N SRV 62574 PRECORDIAL 05-22-2015 [facility] [place] PAIN CONSULTING SRV 0539 HERPES 05-20-2015 [facility] ZOSTER [facility] WITHOUT INC MENTION OF COMPLICATIO N 496 CHRONIC 05-20-2015 [facility] AIRWAY [facility]OS[facility] OBSTRUCTION INC NEC 7823 EDEMA 05-20-2015 [facility] INC 54884 SHORTNESS 05-20-2015 [facility] OF BREATH MEM HOS[facility] INC 04061 DIAB W/O 05-12-2015 [facility] COMP TYPE N PHYSICIAN II/UNS NOT SERVI STATED UNCNTRL 00592 OBESITY, 05-12-2015 [facility] UNSPECIFIED N PHYSICIAN SERVI 34883 OBSTRUCTIVE 05-12-2015 [facility] CHRONIC N PHYSICIAN BRONCHITIS SERVI WITH EXACERBATIO N 71788 OTHER 05-12-2015 [facility] ABNORMAL N PHYSICIAN GLUCOSE SERVI 39273 HYPERTROPHY 04-24-2015 NEW PROSTATE [place] W/O UR OBST CLINIC PSC & OTH LUTS V1051 PERSONAL 04-24-2015 NEW HISTORY [place] MALIGNANT CLINIC PSC NEOPLASM BLADDER 185 MALIGNANT 04-10-2015 NEW NEOPLASM OF [place] PROSTATE CLINIC PSC 1889 MALIGNANT 04-10-2015 NEW NEOPLASM OF [place] BLADDER CLINIC PSC PART UNSPECIFIED 1890 MALIGNANT 04-10-2015 NEW NEOPLASM OF [place] KIDNEY [facility]INIC PSC EXCEPT PELVIS 17332 HYPERTROPHY 04-10-2015 NEW PROSTATE [place] W/UR OBST & CLINIC PSC OTH LUTS 7226 DEGENERATIO 04-01-2015 ADV[facility]ED N TECHNOLOGIE INTERVERTEB S INC RAL DISC SITE UNSPEC 44534 POSTLAMINEC 04-01-2015 [facility] HOBSON [facility] SYNDROME INC CERVICAL REGION V571 OTHER 04-01-2015 [facility] HOSP THERAPY INC 82782 DEGEN 03-24-2015 VIJAY GARLAND LUMBAR/LUMB OSACRAL INTERVERTEB RAL DISC 96857 POSTLAMINEC 03-24-2015 VIJAY HOBSON MD SYNDROME LUMBAR REGION 7244 THORACIC/ELEONORA 03-24-2015 VIJAY BUSTOS MD NEURITIS/RA DICULITIS UNSPEC 7231 CERVICALGIA 02-24-2015 [facility] 7840 HEADACHE 02-24-2015 [facility] 7224 DEGENERATIO 01-16-2015 NEURODIAGNO N OF STICS INC CERVICAL INTERVERTEB RAL DISC 71419 MIGRAINE 12-03-2014 [facility] W/O HOSPITAL INTRACTBL W/STATUS MIGRAINOSUS 4010 ESSENTIAL 12-03-2014 [facility] N, MALIGNANT 5849 ACUTE 12-03-2014 [place] [facility] FAILURE UNSPECIFIED 7820 DISTURBANCE 12-03-2014 [facility] SENSATION 83070 NAUSEA WITH 12-03-2014 [facility] HOSPITAL V1255 PERSONAL 12-03-2014 [facility] HOSPITAL PULMONARY EMBOLISM V4573 ACQUIRED 12-03-2014 [facility] KIDNEY V1046 PERSONAL 11-26-2014 NEW HISTORY [place] MALIGNANT CLINIC PSC NEOPLASM PROSTATE V1052 PERSONAL 11-26-2014 NEW HISTORY OF [place] MALIGNANT CLINIC PSC NEOPLASM OF KIDNEY 0010 CHOLERA DUE 10-28-2014 [place] TO [facility]INIC CHOLERAE LABORATO 7242 LUMBAGO 08-25-2012 [facility] 41719 CHEST PAIN 08-25-2012 [facility] UNSPECIFIED V5861 LONG-TERM 08-25-2012 [facility] (CURRENT) PHYSICIANS USE OF LA ANTICOAGULA NTS 15864 OBSTRUCTIVE 08-09-2012 [facility] SLEEP HOME APNEA MEDICAL EQUIPME 5119 UNSPECIFIED 08-09-2012 [facility] PLEURAL HOME EFFUSION MEDICAL EQUIPME 2270 BENIGN 08-04-2012 JIM KEITH NEOPLASM OF ADRENAL GLAND 19262 HEMATURIA 08-04-2012 JIM KEITH UNSPECIFIED 6822 CELLULITIS 08-04-2012 [facility] AND ABSCESS [facility]K [facility]OS[facility] 7078 CHRONIC 08-04-2012 [facility] ULCER OF [facility] OTHER HOSP SPECIFIED SITE 82853 OTHER 08-04-2012 [facility] POSTOPERATI [facility] VE HOSP INFECTION NEC 09541 DIAB W/O 08-03-2012 [facility] COMP TYPE I HOME [JUV] NOT MEDICAL STATED EQUIPME UNCNTRL 39381 OTHER 07-27-2012 [facility] CHRONIC PAIN 17958 INTESTINAL 06-30-2012 [facility] INFECTIONS EMERGENCY DUE SERVICES CLOSTRIDIUM DIFFICILE 5589 OTH&UNSPEC 06-30-2012 [facility] NONINFECTIO MEM HOSP US INC GASTROENTER ITIS&COLITI S 5699 UNSPECIFIED 06-30-2012 [facility] DISORDER MEDICAL OF IMAGING ASS INTESTINE 5920 CALCULUS OF 06-30-2012 [facility]NEY [facility]ICAL [facility] 85244 NAUSEA 06-30-2012 [facility] 33494 DIARRHEA 06-30-2012 [facility] 7891 HEPATOMEGAL 06-30-2012 [facility]ICAL IM[facility] 93404 OTHER 06-27-2012 [facility] MALAISE AND PHYSICIANS FATIGUE LA 2859 UNSPECIFIED 06-16-2012 [facility] ANEMIA 586 UNSPECIFIED 06-16-2012 [facility] RENAL FAILURE V0481 NEED 06-16-2012 [facility] PROPHYLACTI C VACCINATION &INOCULATIO N FLU 8795 OPEN WOUND 06-14-2012 [facility] OF THERAPEUTIC ABDOMINAL SER INC WALL LATERAL COMPLICATED 90689 NON-HEALING 06-14-2012 [facility] SURGICAL THERAPEUTIC WOUND NEC SER INC 14893 DIAB W/O 06-11-2012 [facility] MENTION N EMERGENCY COMP TYPE PHYS II/UNS TYPE UNCNTRL 6829 CELLULITIS 06-11-2012 [facility] [place] AND ABSCESS RADIOLOGY OF UNSPECIFIED SITE 9642 POISONING 06-11-2012 [place] BY INPATIENT ANTICOAGULA MEDICINE NTS 5939 UNSPECIFIED 06-02-2012 [facility] DISORDER OF KIDNEY AND URETER 27614 ACUTE 05-25-2012 [facility] FAILURE PULMONARY 33216 OTHER 05-22-2012 [facility] [place] NONSPECIFIC RADIOLOGY ABNORMAL FINDING OF LUNG FIELD 4264 RIGHT 05-21-2012 NEW [facility]LE [place] [facility] BLOCK 2762 ACIDOSIS 05-20-2012 [facility] PULMONARY 4011 ESSENTIAL 05-20-2012 [place] HYPERTENSIO INPATIENT N, BENIGN MEDICINE 95029 FEVER 05-20-2012 [facility] PULMONARY 5180 PULMONARY 05-19-2012 [facility] [place] COLLAPSE RADIOLOGY 66027 SEPSIS 05-19-2012 [facility] PULMONARY 74000 OTHER ACUTE 05-18-2012 [facility]OCIATES POSTOPERATI [facility] VE PAIN V5881 FITTING AND 05-18-2012 [facility] [place] ADJUSTMENT RADIOLOGY OF VASCULAR CATHETER 0389 UNSPECIFIED 05-17-2012 [facility] SEPTICEMIA [facility] 96433 ENCEPHALOPA 05-17-2012 [facility] UNSPECIFIED 23579 OTHER 05-17-2012 NEW SPECIFIED [place] CARDIAC CLINIC [facility] DYSRHYTHMIA S 5845 ACUTE 05-17-2012 [facility] KIDNEY [facility] FAILURE W/LESION TUBULAR NECROSIS 5932 ACQUIRED 05-17-2012 [facility] CYST OF [facility] KIDNEY 57823 SEVERE 05-17-2012 [facility] SEPSIS [facility] 9975 URINARY 05-17-2012 [facility] COMPLICATIO [facility] NS NEC 5969 UNSPECIFIED 05-16-2012 NEW DISORDER [place] OF BLADDER CLINIC PSC V1251 PERSONAL 05-16-2012 [facility] HISTORY, THO VENOUS THROMBOSIS AND EMBOLISM V4589 OTHER 05-16-2012 [facility] POSTSURGICA THO L STATUS OTHER V7283 OTHER 05-16-2012 [facility] [place] SPECIFIED RADIOLOGY PRE-OPERATI VE EXAMINATION V7284 UNSPECIFIED 05-16-2012 NEW [place] PRE-OPERATI CLINIC [facility] VE EXAMINATION 71845 NEOPLASM OF 04-24-2012 PODIATRIC UNCERTAIN FOOT & BEHAVIOR OF ANKLE SPECI KIDNEY&URET ER 1888 MALIGNANT 04-13-2012 NEW NEOPLASM [place] OTHER CLINIC [facility] SPECIFIED SITES BLADDER 60882 OTHER 04-06-2012 [facility] [place] PULMONARY EMBOLISM AND INFARCTION 77065 AC JOE 04-06-2012 [facility] [employer] THROM[employer] HOLDINGS UNSPEC DEEP VES LOWER EXT V5869 LONG-TERM 04-06-2012 [place] (CURRENT) [facility] USE OF HOSPITAL OTHER MEDICATIONS V711 OBSERVATION 04-06-2012 [facility] [place] FOR RADIOLOGY SUSPECTED MALIGNANT NEOPLASM 4168 OTHER 04-03-2012 [facility] CHRONIC [facility] PULMONARY HOSP HEART DISEASES 4280 CONGESTIVE 04-03-2012 [place] [facility] UNSPECIFIED 4293 CARDIOMEGAL 04-03-2012 [facility] Y [facility] 4539 EMBOLISM 04-03-2012 [facility] AND ONCOLOGY THROMBOSIS ASSOCIATES OF UNSPECIFIED SITE 60258 OTHER 03-29-2012 [facility] DYSPNEA AND EMERGENCY [place] [address] ABNORMAL 03-29-2012 [facility] COAGULATION [facility] PROFILE HOSP 7245 UNSPECIFIED 03-20-2012 [facility] 7295 PAIN IN 03-20-2012 [facility] MEDICAL TISSUES OF GROUP, PLLC LIMB 98814 ABDOMINAL 03-20-2012 [facility] [place] PAIN OTHER RADIOLOGY SPECIFIED SITE 5859 CHRONIC 03-14-2012 HOSP KIDNEY MEDICINE DISEASE SERV @CTRL UNSPECIFIED BAP 29964 HTN CKD UNS 03-08-2012 [facility] W/CKD [facility] STAGE I HOSP THRU STAGE IV/UNS 4162 CHRONIC 03-08-2012 [facility] PULMONARY PULMONARY & EMBOLISM CRITICAL 4242 TRICUSPID 03-08-2012 [place] [facility] SPEC NONRHEUMATI C 72133 CHRN VNUS 03-08-2012 [facility] THROMB DEEP ASSOCIATES VES PROX LOWR EXTREM 05362 OBSTRUCTIVE 03-08-2012 [facility] CHRONIC PULMONARY & BRONCHITIS CRITICAL WITHOUT EXACERBAT 98139 CHRONIC 03-08-2012 [facility] RESPIRATORY [facility] FAILURE HOSP 53961 HYPOXEMIA 03-08-2012 [facility] PULMONARY & CRITICAL V462 DEPENDENCE 03-08-2012 [facility] ON MACHINE [facility] FOR HOSP SUPPLEMENTA L OXYGEN V8541 BODY MASS 03-08-2012 [facility] INDEX [facility] 40.0-44.9 HOSP ADULT 486 PNEUMONIA, 03-02-2012 [facility] ORGANISM EMERGENCY UNSPECIFIED SERVICES 5183 PULMONARY 03-02-2012 [facility] EOSINOPHILI MEDICAL A IMAGING ASS 13266 OTHER 03-02-2012 [facility] DISEASES OF MEDICAL LUNG NOT IMAGING ASS ELSEWHERE CLASSIFIED 7969 OTHER 03-02-2012 LABORATORY NONSPECIFIC [facility] OF ABNORMAL LINDA H FINDING 7238 OTHER 02-10-2012 [facility] SYNDROMES AFFECTING CERVICAL REGION 4619 ACUTE 02-09-2012 [place] SINUSITIS, EMERGENCY UNSPECIFIED SERVICES 7804 DIZZINESS 01-29-2012 NEURODIAGNO AND [facility] GIDDINESS 01357 OTHER 01-28-2012 [facility] DISEASES OF MEDICAL NASAL IMAGING ASS CAVITY AND SINUSES 7842 SWELLING 01-28-2012 [facility] MASS OR MEDICAL LUMP IN IMAGING ASS HEAD AND NECK 61998 ATRIAL 01-11-2012 [place] FIBRILLATIO [facility] 4519 PHLEBITIS&T 01-10-2012 [facility] CARDIOLOGY ITIS OF CLINIC UNSPECIFIED SITE 4536 VENOUS EMBO 01-10-2012 [place] & [facility] SUPERFICIAL HOSPITAL VES LOWR EXTREM 81249 UNSPECIFIED 12-28-2011 [place] DIASTOLIC [facility] HEART [facility] FAILURE 7850 UNSPECIFIED 12-28-2011 [facility] [place] EM[facility]GENCY TACHYCARDIA SERVICES 3320 PARALYSIS 12-17-2011 [facility] AGITANS 2724 OTHER AND 11-30-2011 [facility] UNSPECIFIED [facility] HOSP HYPERLIPIDE GONZÁLEZ 85786 DEHYDRATION 11-30-2011 [facility] 490 BRONCHITIS 11-30-2011 [facility] NOT [facility] SPECIFIED HOSP ACUTE OR CHRONIC V1089 PERSONAL 11-30-2011 [facility] HISTORY [facility] MALIGNANT HOSP NEOPLASM OTHER SITE V5866 LONG-TERM 11-30-2011 [facility] USE OF [facility] 462 ACUTE 11-29-2011 [facility] PHARYNGITIS 4871 INFLUENZA 11-29-2011 [facility] WITH OTHER RESPIRATORY MANIFESTATI ONS 24890 MUSCLE 11-29-2011 [place] WEAKNESS EMERGENCY (GENERALIZE SERVICES D) 4660 ACUTE 11-18-2011 [facility] BRONCHITIS 96697 ASTHMA, 11-08-2011 [place] UNSPECIFIED EMERGENCY , SERVICES UNSPECIFIED STATUS V1559 PERSONAL 09-24-2011 [place] HISTORY OF COMMUNITY OTHER HOSPITAL INJURY 43607 UNSPECIFIED 09-19-2011 [facility] RETENTION OF URINE 3384 CHRONIC 07-29-2011 [facility] PAIN SYNDROME MEDICIINE PSC 3538 OTHER NERVE 07-29-2011 [facility] ROOT AND PAIN PLEXUS MEDICIINE DISORDERS PSC 7210 CERVICAL 07-29-2011 [facility] SPONDYLOSIS PAIN WITHOUT MEDICIINE MYELOPATHY PSC 7232 CERVICOCRAN 07-29-2011 [facility] IAL PAIN SYNDROME MEDICIINE PSC 2449 UNSPECIFIED 07-26-2011 [facility] ISM 5990 URINARY 07-26-2011 [place] [facility] SITE NOT SPECIFIED 7241 PAIN IN 07-26-2011 [facility] [place] THORACIC RADIOLOGY SPINE 88622 OTHER CHEST 07-26-2011 [facility] 7810 ABNORMAL 07-20-2011 [place] INVOLUNTARY MOVEMENTS 7213 LUMBOSACRAL 04-28-2011 [facility] PAIN SPONDYLOSIS MEDICIINE WITHOUT PSC MYELOPATHY 7220 DISPLCMT 04-28-2011 [facility]ED CERV PAIN INTERVERT MEDICIINE DISC PSC WITHOUT MYELOPATHY 7246 DISORDERS 04-28-2011 ADV[facility]ED OF SACRUM PAIN MEDICIINE PSC 95795 ABDOMINAL 03-16-2011 NEURODIAGNO PAIN, STICPS GENERALIZED V7644 SPECIAL 03-04-2011 [facility] SCREENING [facility] HOLDING NEOPLASM OF PROSTATE 64048 ABDOMINAL 02-26-2011 [place] PAIN, UNSPECIFIED SITE 25179 ABDOMINAL 02-26-2011 [place] RIGHT [facility] QUADRANT 22959 ABDOMINAL 02-26-2011 [facility], [facility]28 INJR MX&UNS 02-26-2011 [place] INTRATHR [facility] ORGN W/O HOSPITAL OPN WND IN CAV 9269 CRUSHING 02-26-2011 [place] INJURY OF [facility] UNSPECIFIED HOSPITAL SITE OF TRUNK 6029 UNSPECIFIED 02-18-2011 [place] DISORDER OF PROSTATE 1560 MALIGNANT 02-17-2011 [place] NEOPLASM OF [facility] GALLBLADDER 1980 SECONDARY 02-17-2011 [place]IG[place] [facility] NEOPLASM OF HOSPITAL KIDNEY 7862 COUGH 02-17-2011 [facility] Medications Na ND Rx Da Fi [...] 0 30 30 EA 24 WE Ac [place] 25 -0 -[address] ti [place] 30 4- 4- 00 SI 15 ve OL 90 20 20 DE MU AM 11 11 11 RR 1 PH AY 0. AR D 5 MA MG CY TA OF BL ET CY NT HI AN A Procedures Procedure DOS Code Location Per[place] [address] [facility] [address] [facility] CERVICAL W/O CONTRAST MATRL PRTBLE E0431 [facility] GASEOUS 7 O2 SYS RENT; FLWMTR HUMIDFR&M ASK O2 [facility] 1 E1390 [facility] DEL PORT 7 85%/>02 [facility] AT [facility] FLW RATE O2 CONC 1 E1390 [facility] DEL PORT 7 85%/>02 [facility] AT [facility] FLW RATE PRTBLE E0431 [facility] GASEOUS 7 O2 SYS RENT; [place] [address] [place] TRUE ABDOMEN & 7 MEDICAL PELVIS SERV W/O FOUNDATIO CONTRAST N MATERIAL PROTHROMB 86638 [facility] IN TIME 7 LINDA LINDA [facility] DRUG TEST 27763 [facility] 7 [facility] CHEMISTRY ANALYZERS O2 CONC 1 E1390 [facility] DEL PORT 7 85%/>02 CON[facility] AT [facility] FLW RATE PRTBLE E0431 [facility] GASEOUS 7 O2 SYS RENT; [place] [address] [facility] [place] SCALF ABDOMEN & 7 RADIOLOGY PELVIS W/O CONTRAST MATERIAL CULTURE 03367 [facility] - [facility] BACTERIAL 7 [facility] LABORATO LABORATO QUANTTATI VE COLONY COUNT URINE URNLS DIP 27216 STEPHANIE SILVA [address] [place] [address] STICK/TAB CLINIC LET RGNT PSC AUTO W/O MICROSCOP Y O2 CONC 1 E1390 [facility] DEL PORT 7 85%/>02 CONC AT [facility] FLW RATE PRTBLE E0431 [facility] GASEOUS 7 O2 SYS RENT; FLWMTR HUMIDFR&M ASK PROTHROMB 28513 [facility] IN TIME 7 LINDA LINDA [facility] DRUG TST G0483 [facility] DEFINITV [address] ID HOLDINGS HOLDINGS METH P DAY 22/MORE DR CL DRUG TEST 75307 [facility] PRSMV 7 LINDA LINDA INSTRMNT HOLDINGS HOLDINGS CHEMISTRY ANALYZERS COLLECTIO 78044 YNES TATE N VENOUS 7 PHYSICIAN BLOOD PRACTICE VENIPUNCT L URE PROTHROMB 41791 [facility] IN TIME 7 LINDA LINDA [facility] INITIAL [address] [place] [address] MEDICINE CARE/DAY [place] [address] [place] [address] [facility] [place] SCALF HEAD/BRAI 7 RADIOLOGY N W/O CONTRAST MATERIAL RADIOLOGI 59771 [facility] [place] SCALF C 7 RADIOLOGY EXAMINATI ON CHEST SINGLE VIEW FRONTAL ECG 55366 [facility] ROUTINE 7 JEROD ECG EMERGENCY W/LEAST PHYS 12 LDS I&R ONLY RADEX 60012 [facility] DAGOBERTO SHOULDER 7 MEDICAL COMPLETE IMAGING MINIMUM 2 ASS VIEWS RADEX 15701 [facility] SPINE 7 MEDICAL CERVICAL IMAGING 2 OR 3 ASS VIEWS ECG 70926 ARIANA KARTIK ROUTINE 7 [facility] W/LEAST P 12 LDS I&R ONLY DUP-SCAN 09229 [place] DAGOBERTO XTR VEINS 7 MEDICAL IMAGING [place]ATER[place] ASS L/LIMITED STUDY PROTHROMB 20911 LAB [facility] LAB [facility] IN TIME 7 [facility] HOLDINGS HOLDINGS PROTHROMB 81836 LAB [facility] LAB [facility] IN TIME 7 [place] [address] LAB [facility] LAB [facility] THYROXINE 7 [facility] TOTAL HOLDINGS HOLDINGS COLLECTIO 98970 YNES TATE N VENOUS 7 PHYSICIAN BLOOD [place] [address] LAB [facility] THYROID 7 [facility] STIMULATI HOLDINGS HOLDINGS NG HORMONE TSH URNLS DIP 30366 STEPHANIE SILVA 7 [place] STICK/TAB CLINIC LET RGNT PSC AUTO W/O MICROSCOP Y COMPREHEN [address] SIVE 7 [facility] METABOLIC INC INC PANEL PROTHROMB [address] IN TIME [address] [place] [address] ABDOMEN & 7 [facility] PELVIS INC INC W/[place] [address] LIPASE 7 [facility] INC INC URNLS DIP [address] 7 [facility] STICK/TAB INC INC LET REAGENT AUTO MICROSCOP Y BLOOD [address] COUNT 7 [facility] COMPLETE INC INC AUTO&AUTO DIFRNTL WBC CYSTOURET 00490 [facility] HROSCOPY 6 [facility] PSC PSC THERAPEUT 59639 [place] IC PX 1/> 6 [facility] EACH 15 MIN EXERCISES E-STIM G0283 [place] 1/> AREAS 6 [facility] WND CARE PART TX PLAN E-STIM G0283 [place] 1/> AREAS 6 [facility] WND CARE PART TX PLAN THERAPEUT 78981 [place] PX 1/> 6 [facility] EACH 15 MIN EXERCISES THERAPEUT 65440 [place] PX 1/> 6 [facility] EACH 15 MIN EXERCISES E-STIM G0283 [place] 1/> AREAS 6 [facility] HOSPITAL WND CARE PART TX PLAN E-STIM G0283 [place] 1/> AREAS 6 [facility] HOSPITAL WND CARE PART TX PLAN PHYSICAL 11222 [place] THERAPY 6 [facility] [address] SIVE 6 [facility] [address] THYROID 6 [facility] STIMULATI INC INC NG HORMONE TSH COLLECTIO [address] N VENOUS 6 [facility] [place] [address] THYROXINE 6 [facility] TOTAL INC INC DRAINAGE [id number] [address] [address] OF NECK 6 [facility] SKIN INC INC EXTERNAL BLOOD [address] COUNT 6 [facility] COMPLETE INC INC AUTO&AUTO DIFRNTL WBC THYROID [address] HORM 6 [facility] UPTK/THYR INC INC OID HORMONE BINDING RATIO BLOOD 05290 [facility] COUNT 6 N N COMPLETE COMMUNTIY COMMUNTIY AUTO&AUTO HOSPITA HOSPITA DIFRNTL WBC THROMBOPL 48835 [facility] ASTIN 6 N N TIME COMMUNTIY COMMUNTIY PARTIAL HOSPITA HOSPITA PLASMA/WH OLE BLOOD PROTHROMB 91815 [facility] IN TIME 6 N N COMMUNTIY COMMUNTIY HOSPITA HOSPITA US SOFT 91035 [facility] TISSUE 6 N N HEAD & COMMUNTIY COMMUNTIY NECK REAL HOSPITA HOSPITA TIME IMGE DOCM COLLECTIO 41783 [facility] N VENOUS 6 N N BLOOD COMMUNTIY [place] [address] [facility] MAXILLOFA 6 N N CIAL W/O COMMUNTIY COMMUNTIY CONTRAST HOSPITA HOSPITA MATERIAL INJECTION [id number] [place] 0.1 MG TECHNETIU A9502 [facility] M TC-[address]M [address] [place] [address] TETROFOSM IN DX PER STUDY DOSE CV STRS 10207 [facility] TST [address] [place] [address] XERS&/OR RX CONT ECG TRCG ONLY MYOCARDIA 51910 [facility] L SPECT [address] [place] [address] MULTIPLE STUDIES US SOFT 38001 [facility]IAG SUN [facility] TISSUE 6 NOSTICS HEAD & INC NECK REAL TIME IMGE DOCM MRI ORBIT 34230 NE[facility]ODIAG [facility] [place] FACE & 6 NOSTICS NECK W/O INC & W/[place] [address] [facility] ABDOMEN & 6 REGIONAL LD IV ALL PELVIS IMAGING W/O L CONTRST 1/> BODY RE TECHNETIU A9540 CASSIE Burkett TC-99M 6 [facility] MAA DX [facility] STDY DOSE UP TO 10 [facility]CI PULMONARY 68703 WORSHIP WORSHIP 6 [facility] HEALTH VENTILATI [facility] ON & PERFUSION IMAGING XENON A9558 WORSHIP WORSHIP [id number] 6 HEALTH HEALTH GAS [facility] DIAGNOSTI C PER 10 MILLICURI ES RADIOLOGI 95847 WORSHIP WORSHIP C EXAM 6 [facility] CHEST 2 [facility] VIEWS FRONTAL&[place] [address] WORSHIP WORSHIP TRACT 6 HEALTH HEALTH UPPER [facility] W/WO DELAYED IMAGES W/KUB NEBULIZER E0570 [facility] WITH 6 COMPRESSO R ECG 98843 PEPE NEVAREZ NEVAREZ PEPE ROUTINE 5 MD ECG CONSULTIN W/LEAST G SRV 12 LDS W/I&R ECHO 86315 PEPE NEVAREZ NEVAREZ PEPE TTHRC R-T 5 2D CONSULTIN W/WOM-MOD G SRV E COMPL SPEC&COLR D CREATINE [address] KINASE MB 5 [facility] FRACTION INC INC ONLY RADIOLOGI 83460 ARIANA Daniel EXAM 5 [facility] CHEST 2 INC INC VIEWS FRONTAL&L ATERAL COMPREHEN [address] SIVE 5 [facility] METABOLIC INC INC PANEL ECG [address] ROUTINE 5 [facility] ECG INC INC W/LEAST 12 LDS TRCG ONLY W/O I&R CREATINE [address] KINASE 5 [facility] TOTAL INC INC RADIOLOGI [address] C 5 [facility] EXAMINATI INC INC ON CHEST SINGLE VIEW FRONTAL NATRIURET [address] IC 5 [facility] [place] [address] TROPONIN 5 [facility] QUANTITAT INC INC JOANIE BLOOD [address] COUNT 5 [facility] COMPLETE INC INC AUTO&AUTO DIFRNTL WBC PROTHROMB [address] IN TIME 5 [facility] [address] JEROD CELINA IGN DAY PHYSICIAN MANAGEMEN SERVI T > 30 MIN SBSQ 83353 [facility] 5 JEROD CELINA IGN CARE/DAY PHYSICIAN 25 SERVI MINUTES SBSQ 43255 [facility] 5 JEROD CELINA IGN CARE/DAY PHYSICIAN 25 SERVI MINUTES ECG 26601 [facility] 5 JEROD A GOP ECG PHYSICIAN W/LEAST SERVI 12 LDS I&R ONLY INITIAL 75913 [facility] 5 JEROD A GOP CARE/DAY PHYSICIAN 70 SERVI MINUTES CYSTOURET 59522 STEPHANIE SILVA HROSCOPY 5 [facility] PSC APPL [address] MODALITY 5 [facility] 1/> AREAS INC INC ELEC STIMJ UNATTENDE D PHYSICAL [address] THERAPY 5 [facility] EVALUATIO INC INC N APPLICATI [address] ON 5 [facility] MODALITY INC INC 1/> AREAS HOT/COLD PACKS APPL [address] MODALITY 5 [facility] 1/> AREAS INC INC ULTRASOUN D EA 15 MIN URNLS DIP 75068 STEPHANIE RICARDO 5 [place] [facility] STICK/TAB CLINIC LET RGNT PSC AUTO W/O MICROSCOP Y APPL [address] MODALITY 5 [facility] 1/> AREAS INC INC ULTRASOUN D EA 15 MIN [address]ATI [address] ON 5 [facility] MODALITY INC INC 1/> AREAS HOT/COLD PACKS THERAPEUT [address] IC PX 1/> 5 [facility] AREAS INC INC EACH 15 MIN EXERCISES APPL [address] MODALITY 5 [facility] 1/> AREAS INC INC ELEC STIMJ UNATTENDE D APPL [address] MODALITY 5 [facility] 1/> AREAS INC INC ELEC STIMJ UNATTENDE D THERAPEUT [address] IC PX 1/> 5 [facility] AREAS INC INC EACH 15 MIN EXERCISES APPLICATI 62167 ARIANA OBREGONON ON 5 [facility] MODALITY INC INC 1/> AREAS HOT/COLD PACKS APPL [address] MODALITY 5 [facility] 1/> AREAS INC INC ULTRASOUN D EA 15 [address]I [address] ON 5 [facility] MODALITY INC INC 1/> AREAS HOT/COLD PACKS ORTHOTIC [address] MGMT&IKE 5 [facility] [place] UXTR INC INC LXTR&/TRN K EA [address] IC PX 1/> 5 [facility] AREAS INC INC EACH 15 MIN EXERCISES LUMB L0627 [facility] 5 TECHNOLOG TECHNOLOG SAGIT IES INC IES INC CNTRL RIGID A&P PANEL PREFAB APPL 79659 ARIANA ARIANA MODALITY 5 [facility] 1/> AREAS INC INC ELEC STIMJ UNATTENDE D APPL 01758 ARIANA ARIANA MODALITY 5 [facility] 1/> AREAS INC INC ELEC STIMJ UNATTENDE D THERAPEUT 66976 ARIANA ARIANA IC PX 1/> 5 [facility] AREAS INC INC EACH 15 MIN EXERCISES APPL [address] MODALITY 5 [facility] 1/> AREAS INC INC ULTRASOUN D EA 15 MIN APPL 19637 ARIANA ARIANA MODALITY 5 [facility] 1/> AREAS INC INC ULTRASOUN D EA 15 MIN [address]APEUT [address] IC PX 1/> 5 [facility] AREAS INC INC EACH 15 MIN EXERCISES APPL [address] MODALITY 5 [facility] 1/> AREAS INC INC ELEC STIMJ UNATTENDE D APPL [address] MODALITY 5 [facility] 1/> AREAS INC INC ELEC STIMJ UNATTENDE D THERAPEUT [address] IC PX 1/> 5 [facility] AREAS INC INC EACH 15 MIN EXERCISES APPL [address] MODALITY 5 [facility] 1/> AREAS INC INC ULTRASOUN D EA 15 MIN APPLICATI [address] ON 5 [facility] MODALITY INC INC 1/> AREAS HOT/COLD PACKS APPLICATI [address] ON 5 [facility] MODALITY INC INC 1/> AREAS HOT/COLD PACKS APPL [address] MODALITY 5 [facility] 1/> AREAS INC INC ULTRASOUN D EA 15 MIN APPL [address] MODALITY 5 [facility] 1/> AREAS INC INC ELEC STIMJ UNATTENDE D THERAPEUT [address] IC PX 1/> 5 [facility] AREAS INC INC EACH 15 MIN EXERCISES THERAPEUT [address] IC PX 1/> 5 [facility] AREAS INC INC EACH 15 MIN EXERCISES APPL [address] MODALITY 5 [facility] 1/> AREAS INC INC ELEC STIMJ UNATTENDE D APPL [address] MODALITY 5 [facility] 1/> AREAS INC INC ULTRASOUN D EA 15 MIN APPL [address] MODALITY 5 [facility] 1/> AREAS INC INC ULTRASOUN D EA 15 MIN APPL [address] MODALITY 5 [facility] 1/> AREAS INC INC ELEC STIMJ UNATTENDE D THERAPEUT [address] IC PX 1/> 5 [facility] AREAS INC INC EACH 15 MIN EXERCISES THERAPEUT [address] IC PX 1/> 5 [facility] AREAS INC INC EACH 15 MIN EXERCISES APPL [address] MODALITY 5 [facility] 1/> AREAS INC INC ELEC STIMJ UNATTENDE D APPL [address] MODALITY 5 [facility] 1/> AREAS INC INC ULTRASOUN D EA 15 [address] APPL [address] MODALITY 5 [facility] 1/> AREAS INC INC ULTRASOUN D EA 15 MIN APPLICATI [address] ON 5 [facility] MODALITY INC INC 1/> AREAS HOT/COLD PACKS THERAPEUT [address] IC PX 1/> 5 [facility] AREAS INC INC EACH 15 MIN EXERCISES APPL [address] MODALITY 5 [facility] 1/> AREAS INC INC ELEC STIMJ UNATTENDE D APPL [address] MODALITY 5 [facility] 1/> AREAS INC INC ELEC STIMJ UNATTENDE D APPL [address] MODALITY 5 [facility] 1/> AREAS INC INC ULTRASOUN D EA 15 MIN THERAPEUT [address] IC PX 1/> 5 [facility] AREAS INC INC EACH 15 MIN EXERCISES THERAPEUT [address] IC PX 1/> 5 [facility] AREAS INC INC EACH 15 MIN EXERCISES APPL [address] MODALITY 5 [facility] 1/> AREAS INC INC ULTRASOUN D EA 15 [address] APPL [address] MODALITY 5 [facility] 1/> AREAS INC INC ELEC STIMJ UNATTENDE D MRI 63270 NEURODIAG OBREGON SPINAL 5 NOSTICS [place] CANAL INC CERVICAL W/O CONTRAST MATRL APPL [address] MODALITY 5 [facility] 1/> AREAS INC INC ELEC STIMJ UNATTENDE D APPL [address] MODALITY 5 [facility] 1/> AREAS INC INC ULTRASOUN D EA 15 MIN [address]APEUT [address] IC PX 1/> 5 [facility] AREAS INC INC EACH 15 MIN EXERCISES THERAPEUT [address] IC PX 1/> 5 [facility] AREAS INC INC EACH 15 MIN EXERCISES APPL [address] MODALITY 5 [facility] 1/> AREAS INC INC ULTRASOUN D EA 15 [address]ATI [address] ON 5 [facility] MODALITY INC INC 1/> AREAS HOT/COLD PACKS APPL [address] MODALITY 5 [facility] 1/> AREAS INC INC ELEC STIMJ UNATTENDE D APPL [address] MODALITY 5 [facility] 1/> AREAS INC INC ULTRASOUN D EA 15 MIN THERAPEUT [address] IC PX 1/> 5 [facility] AREAS INC INC EACH 15 MIN EXERCISES MANUAL [address] THERAPY 5 [facility] TQS 1/> INC INC REGIONS EACH 15 MINUTES MANUAL [address] THERAPY 5 [facility] TQS 1/> INC INC REGIONS EACH [address] APPL [address] MODALITY 5 [facility] 1/> AREAS INC INC ULTRASOUN D EA 15 MIN APPLICATI [address] ON 5 [facility]OS[facility] MODALITY INC INC 1/> AREAS HOT/COLD PACKS APPL [address] MODALITY 5 [facility] 1/> AREAS INC INC ELEC STIMJ UNATTENDE D THERAPEUT [address] IC PX 1/> 5 [facility] AREAS INC INC EACH 15 MIN EXERCISES THERAPEUT 36129 ARIANA LNAE IC PX 1/> 5 [facility] AREAS INC INC EACH 15 MIN EXERCISES APPL [address] MODALITY 5 [facility] 1/> AREAS INC INC ELEC STIMJ UNATTENDE D APPLICATI [address] ON 5 [facility] MEM [facility]OSP MODALITY INC INC 1/> AREAS HOT/COLD PACKS APPL [address] MODALITY 5 [facility] 1/> AREAS INC INC ULTRASOUN D EA 15 [address] APPL [address] MODALITY 5 [facility] 1/> AREAS INC INC ELEC STIMJ UNATTENDE D THERAPEUT [address] IC PX 1/> 5 [facility] AREAS INC INC EACH 15 MIN EXERCISES PHYSICAL [address] THERAPY 5 [facility] EVALUATIO INC INC N CYSTOURET 04663 [facility] HROSCOPY 5 [facility] PSC PSC COLLECTIO 57606 [facility] N VENOUS 5 [place] [facility]IN[facility] VENIPUNCT PSC URE URNLS DIP 34617 STEPHANIE SILVA 5 [place] JUS STICK/TAB CLINIC LET RGNT PSC AUTO W/O MICROSCOP Y CYTP 18885 STEPHANIE ERNST FRANDY SLCTV 5 [facility] ENHANCEME PSC NT INTERPJ XCPT C/[place] [address] STEPHANIE SILVA PROSTATE 5 [facility] ANTIGEN PSC TOTAL CUL BACT 45330 [facility] XCPT 5 CLINIC CLINIC URINE LABORATO LABORATO BLOOD/STO OL AEROBIC ISOL SMR PRIM 71200 [facility] SRC 5 CLINIC CLINIC GRAM/GIEM LABORATO LABORATO SA STAIN BCT FUNGI/LEODAN L PROTHROMB 52018 COMBINED COMBINED IN TIME 2 PHYSICIAN PHYSICIAN S LA S LA COLLECTIO 56500 COMBINED COMBINED N VENOUS 2 PHYSICIAN PHYSICIAN BLOOD S LA S LA VENIPUNCT URE CONTINUOU E0601 A[facility] COPPOLA S 2 HOME HOME POSITIVE MEDICAL MEDICAL AIRWAY EQUIPME EQUIPME PRESSURE DEVICE NONCOVERE A9270 [facility] D ITEM OR 2 WORSHIP WORSHIP SERVICE HOSP HOSP COMPREHEN 91474 [facility] SIVE 2 WORSHIP WORSHIP METABOLIC HOSP HOSP PANEL COLLECTIO 76139 [facility] N VENOUS 2 WORSHIP WORSHIP BLOOD HOSP HOSP VENIPUNCT URE PROTHROMB 47247 [facility] IN TIME [address] [place] [address] [facility]ENTRAL ABDOMEN & 2 WORSHIP WORSHIP PELVIS HOSP HOSP W/O CONTRAST MATERIAL BLOOD 15889 [facility] COUNT 2 WORSHIP WORSHIP COMPLETE HOSP HOSP AUTO&AUTO DIFRNTL WBC URNLS DIP 04108 [facility]TRAL 2 WORSHIP WORSHIP STICK/TAB HOSP HOSP LET REAGENT AUTO MICROSCOP Y PRTBLE E0431 ABDON COPPOLA GASEOUS 2 HOME HOME O2 SYS MEDICAL MEDICAL RENT; EQUIPME EQUIPME FLWMTR HUMIDFR&M ASK O2 CONC 1 E1390 ABDON COPPOLA DEL PORT 2 HOME HOME 85%/>02 MEDICAL MEDICAL CONC AT EQUIPME EQUIPME PRSC FLW RATE HEMOGLOBI [address] [facility] MUR N 2 GLYCOSYLA CORTNEY A1C ADMN SET A7003 YOUR YOUR SM VOL 2 PHARMACY PHARMACY NONFILTR PNEUMAT NEBULIZR DISPBL URNLS DIP 03396 [facility] 2 RAMANA JR THO STICK/TAB CLINIC [...] AT EQUIPME EQUIPME PRSC FLW RATE PROTHROMB [address] IN TIME 2 [facility] [place] [address] CLOSTRIDI 2 MEM H[facility] UM INC INC DIFFICILE TOXIN CUL BACT [address] STOOL 2 MEM HOS[facility] AEROBIC INC INC ISOL SALMONE[place] A&[place] [address] ABDOMEN & 2 [facility] PELVIS INC INC W/[place] [address] LIPASE 2 [facility] INC INC THER [address] PROPH/DX 2 [facility] NJX IV INC INC PUSH SINGLE/1S T SBST/DRUG BLOOD [address] COUNT 2 MEM [facility] MEM [facility]OS[facility] COMPLETE INC INC AUTO&AUTO DIFRNTL WBC URNLS DIP [address] 2 [facility]OS[facility] STICK/TAB INC INC LET [place] [address] AMYLASE 2 MEM H[facility] INC INC THERAPEUT [address] IC 2 [facility] H[facility] INJECTION INC INC IV PUSH EACH NEW DRUG COMPREHEN [address] SIVE 2 [facility] METABOLIC INC INC PANEL INJECTION J2405 [address] 2 [facility] HOSP ONDANSETR INC INC ON HCL PER [address] RENDERING 2 [facility] INC INC W/INTERP& POSTPROC DIFF WORK STATION COLLECTIO 84330 COMBINED COMBINED N VENOUS 2 PHYSICIAN PHYSICIAN BLOOD S LA S LA VENIPUNCT URE POTASSIUM 51510 COMBINED COMBINED SERUM 2 PHYSICIAN PHYSICIAN PLASMA/WH S LA S LA OLE BLOOD PROTHROMB 59853 COMBINED COMBINED IN TIME 2 PHYSICIAN PHYSICIAN S LA S LA URNLS DIP 95179 [facility] 2 RAMANA JR THO STICK/TAB CLINIC LET RGNT PSC AUTO W/O MICROSCOP Y THERAPEUT [address] IC 2 [facility] INJECTION INC [place] [address] INFUSION 2 [facility] THERAPY/P INC INC ROPHYLAXI S /DX 1ST TO 1 HR BASIC 13283 COMBINED COMBINED METABOLIC 2 PHYSICIAN PHYSICIAN PANEL S LA S LA CALCIUM TOTAL PROTHROMB 94072 COMBINED COMBINED IN TIME 2 PHYSICIAN PHYSICIAN S LA S LA BLOOD 88814 COMBINED COMBINED COUNT 2 PHYSICIAN PHYSICIAN COMPLETE S LA S LA AUTO&AUTO DIFRNTL WBC COLLECTIO 61557 COMBINED COMBINED N VENOUS 2 PHYSICIAN PHYSICIAN BLOOD S LA S LA VENIPUNCT URE COMPREHEN 04812 COMBINED COMBINED SIVE 2 PHYSICIAN PHYSICIAN METABOLIC S LA S LA PANEL CANISTER A7000 [facility] DISPOSABL 2 THERAPEUT THERAPEUT E USED IC SER IC SER WITH INC INC SUCTION PUMP EACH HOSPITAL 68696 [facility] 2 INPATIENT ALI DAY MEDICINE MANAGEMEN T > 30 MIN WND CARE A6550 [facility] SET NEG 2 THERAPEUT THERAPEUT PRSS WND IC SER IC SER TX ELEC INC INC PUMP SPL ADMN SET A7003 YOUR YOUR SM VOL 2 PHARMACY PHARMACY NONFILTR PNEUMAT NEBULIZR DISPBL NEG PRESS E2402 [facility] WOUND 2 THERAPEUT THERAPEUT THERAPY IC SER IC SER ELEC PUMP INC INC STATION/P RTBLE SBSQ 53760 [facility] 2 INPATIENT ALI CARE/DAY MEDICINE 25 MINUTES SBSQ 42271 [facility] 2 INPATIENT ALI CARE/DAY MEDICINE 35 MINUTES INITIAL 23664 [facility] 2 INPATIENT ALI CARE/DAY MEDICINE 70 MINUTES RADIOLOGI 98867 [facility] [place] C 2 RADIOLOGY RAY [...] RENT; EQUIPME EQUIPME FLWMTR HUMIDFR&M ASK SBSQ 35196 [facility] Y THO CARE/DAY ASSOCIATE 15 S MINUTES SBSQ [id number] CARE/DAY EAST 25 PULMONARY MINUTES SBSQ 66177 [facility] 2 INPATIENT CARE/DAY MEDICINE 25 MINUTES SBSQ [id number] CARE/DAY EAST 35 PULMONARY MINUTES SBSQ [id number] CARE/DAY EAST 35 PULMONARY MINUTES SBSQ 46375 [facility] 2 INPATIENT CARE/DAY MEDICINE 25 MINUTES SBSQ 27391 [facility] 2 INPATIENT CARE/DAY MEDICINE 25 MINUTES CRITICAL 03459 [facility] [place] 2 SUZANNE GRA ILL/INJUR EAST ED PULMONARY PATIENT INIT 30-74 MIN RADIOLOGI 83731 [facility] WHYTE C 2 RADIOLOGY LD IV A EXAMINATI ON CHEST SING[place] VIEW FRONTAL RADIOLOGI 42202 [facility] [place] C 2 RADIOLOGY LD IV A EXAMINATI ON CHEST SING[place] VIEW FRONTAL SBSQ 66258 [facility] 2 INPATIENT CARE/DAY MEDICINE 25 MINUTES SBSQ 27362 [facility] 2 [facility] CARE/DAY EAST 35 PULMONARY MINUTES SBSQ 29056 [facility] 2 Y [facility] CARE/DAY ASSOCIATE 35 S MINUTES ECG 72525 [facility] 2 [facility] W/LEAST PSC 12 LDS I&R ONLY SBSQ 06522 [facility] 2 INPATIENT CARE/DAY MEDICINE 25 MINUTES RADIOLOGI 54903 [facility] SANDOVAL C 2 RADIOLOGY III KEITH EXAMINATI ON CHEST SING[place] VIEW FRONTAL CRITICAL 27688 [facility] 2 SUZANNE ANA ILL/INJUR EAST ED PULMONARY PATIENT INIT 30-74 MIN CRITICAL 49195 [facility] 2 SUZANNE ANA ILL/INJUR EAST ED PULMONARY PATIENT INIT 30-74 MIN RADIOLOGI 35348 [facility] SANDOVAL C 2 RADIOLOGY III KEITH EXAMINATI ON CHEST SING[place] FRONTAL SBSQ 41289 [facility] 2 INPATIENT CARE/DAY MEDICINE 25 MINUTES SBSQ 83426 [facility] 2 INPATIENT ARU CARE/DAY MEDICINE 25 MINUTES SBSQ 37742 [facility] 2 Y [facility] CARE/DAY ASSOCIATE 35 S MINUTES RADIOLOGI 13895 [facility] HIGGINS C 2 RADIOLOGY STEPHANY EXAMINATI ON CHEST [place] FRONTAL CRITICAL 50148 [facility] 2 SUZANNE ILL/INJUR [facility] ED PULMONARY PATIENT INIT 30-74 MIN CRITICAL 86461 [facility] [place] 2 SUZANNE SAWYER ILL/INJUR [facility] ED PULMONARY PATIENT INIT 30-74 MIN INITIAL 81957 NEPHROLOG [facility] 2 Y THO CARE/DAY ASSOCIATE 70 S MINUTES RADIOLOGI 46074 [facility] [place] [facility] 2 RADIOLOGY LD IV A EXAMINATI ON CHEST [place] FRONTAL DAILY 07379 [facility] 2 A DEH ASSOCIATE EDRL/PAULETTE S PSC CH CONT DRUG ADMN INSERTION 9604 [facility] [address] [place] [address] ENDOTRACH EAL TUBE ARTERIAL [address] ZATION CENTRAL [address] CATHETER PLACEMENT WITH GUIDANCE CONT [address] MECH VENT 96 CONSECUTI VE HRS/[place] [address] [facility] [place] RETROPERI 2 RADIOLOGY RAY TONEAL REAL TIME W/IMAGE LIMITED SBSQ 58014 [facility] 2 INPATIENT ARU CARE/DAY MEDICINE 35 MINUTES INSJ 14847 [facility] NON-[facility]UN[facility] 2 SUZANNE SAWYER [address] [facility] CENTRAL PULMONARY VENOUS CATH AGE 4 YR/> ARTL 28378 [facility] CATHJ/CAN 2 SUZANNE SAWYER [facility] MNTR/SWIFT [place] [address] [facility] SURG 2 [place] [facility] PSC GROSS&MIGUEL ROSCOPIC EXAM NEPHRECTO 59460 [facility] MY 2 [place] JR THO PARTIAL CLINIC PSC ANES 27047 ANESTHESI ALEX XTRPRTL 2 A STA LOWER ABD ASSOCIATE UR TRACT S PSC RENAL DON NFRCT ECG 63369 STEPHANIE WISE ROUTINE 2 [facility] W/LEAST PSC 12 LDS I&R ONLY PARTIAL 554 [facility] NEPHRECT[address] [facility] MY INITIAL 81013 [facility] 2 INPATIENT ARU CARE/DAY MEDICINE 70 MINUTES NJXS 22616 ANESTHESI VANCE INFUS/MAITE 2 A SCO US ASSOCIATE DX/SBST S PSC EDRL/SUBA PETER CRV/THRC ECG 80875 [facility] ROUTINE 2 [place] MAT ECG CLINIC W/LEAST PSC 12 LDS I&R ONLY RADIOLOGI 25356 [facility] [place] MAT C EXAM 2 RADIOLOGY CHEST 2 VIEWS FRONTAL&L ATERAL PRTBLE E0431 ABDON COPPOLA GASEOUS 2 HOME HOME O2 SYS MEDICAL MEDICAL RENT; EQUIPME EQUIPME FLWMTR HUMIDFR&M ASK O2 CONC 1 E1390 ABDON COPPOLA DEL PORT 2 HOME HOME 85%/>02 MEDICAL MEDICAL CONC AT EQUIPME EQUIPME PRSC FLW RATE PROTHROMB 99721 COMBINED COMBINED IN TIME 2 PHYSICIAN PHYSICIAN S LA S LA COLLECTIO 46580 COMBINED COMBINED N VENOUS 2 PHYSICIAN PHYSICIAN BLOOD S LA S LA VENIPUNCT URE URNLS DIP 35704 PODIATRIC SLABAU 2 FOOT & JR THO STICK/TAB ANKLE LET RGNT SPECI AUTO W/O MICROSCOP Y HEMOGLOBI 02011 [facility] N 2 GLYCOSYLA CORTNEY A1C PROTHROMB 87707 COMBINED COMBINED IN TIME 2 PHYSICIAN PHYSICIAN S LA S LA COLLECTIO 90977 COMBINED COMBINED N VENOUS 2 PHYSICIAN PHYSICIAN BLOOD S LA S LA VENIPUNCT URE COLLECTIO 56441 COMBINED COMBINED N VENOUS 2 PHYSICIAN PHYSICIAN BLOOD S LA S LA VENIPUNCT URE PROTHROMB 98408 COMBINED COMBINED IN TIME 2 PHYSICIAN PHYSICIAN S LA S LA URNLS DIP 85042 [facility] 2 [place] THO STICK/TAB CLINIC LET PSC REAGENT AUTO MICROSCOP Y PROTHROMB 43269 COMBINED COMBINED IN TIME 2 PHYSICIAN PHYSICIAN S LA S LA COLLECTIO 13345 COMBINED COMBINED N VENOUS 2 PHYSICIAN PHYSICIAN BLOOD S LA S LA VENIPUNCT URE COLLECTIO 32036 COMBINED COMBINED N VENOUS 2 PHYSICIAN PHYSICIAN BLOOD S LA S LA VENIPUNCT URE PROTHROMB 40609 COMBINED COMBINED IN TIME 2 PHYSICIAN PHYSICIAN S LA S LA PROTHROMB 08260 COMBINED COMBINED IN TIME 2 PHYSICIAN PHYSICIAN S LA S LA COLLECTIO 50304 COMBINED COMBINED N VENOUS 2 PHYSICIAN PHYSICIAN BLOOD S LA S LA VENIPUNCT URE COLLECTIO 39791 COMBINED COMBINED N VENOUS 2 PHYSICIAN PHYSICIAN BLOOD S LA S LA VENIPUNCT URE PROTHROMB 71076 COMBINED COMBINED IN TIME 2 PHYSICIAN PHYSICIAN S LA S LA PROTHROMB 26066 COMBINED COMBINED IN TIME 2 PHYSICIAN PHYSICIAN S LA S LA URNLS DIP [address]/[facility] [place] [address] [facility] [place] ABDOMEN & 2 RADIOLOGY RHO PELVIS W/O CONTRST 1/> BODY RE CT THORAX 43894 [facility] [place] 2 RADIOLOGY RHO W/CONTRAS T MATERIAL CLOTTING 56823 [facility] INHIBITOR 2 AMERIC AMERIC S PROTEIN [employer] HOLDINGS C ACTIVITY COLLECTIO 27209 COMBINED COMBINED N VENOUS 2 PHYSICIAN PHYSICIAN BLOOD S LA S LA VENIPUNCT URE CLOTTING 96573 [facility] INHIBITOR 2 AMERIC AMERIC S PROTEIN HOLDINGS HOLDINGS S FREE CYSTOURET 40811 PODIATRIC [place] HROSCOPY 2 FOOT & THO ANKLE SPECI COLLECTIO 34086 COMBINED COMBINED N VENOUS 2 PHYSICIAN PHYSICIAN BLOOD S LA S LA VENIPUNCT URE PROTHROMB 46107 COMBINED COMBINED IN TIME 2 PHYSICIAN PHYSICIAN S LA S LA ECHO 98547 [facility] TTHRC R-T 2 [facility] 2D HOSP HOSP W/WOM-MOD E COMPL SPEC&COLR D O2 CONC 1 E1390 ABDON COPPOLA DEL PORT 2 HOME HOME 85%/>02 MEDICAL MEDICAL CONC AT EQUIPME EQUIPME PRSC FLW RATE PRTBLE E0431 ABDON COPPOLA GASEOUS 2 HOME HOME O2 SYS MEDICAL MEDICAL RENT; EQUIPME EQUIPME FLWMTR HUMIDFR&M ASK HEMOGLOBI 59468 COMBINED COMBINED N 2 PHYSICIAN PHYSICIAN GLYCOSYLA S LA S LA CORTNEY A1C BLOOD 45163 COMBINED COMBINED COUNT 2 PHYSICIAN PHYSICIAN COMPLETE S LA S LA AUTO&AUTO DIFRNTL WBC PROTHROMB 10395 COMBINED COMBINED IN TIME 2 [place] [address] COMBINED COMBINED THYROID 2 PHYSICIAN PHYSICIAN STIMULATI [place] [address] COMBINED COMBINED FREE 2 PHYSICIAN PHYSICIAN THYROXINE S LA S LA COMPREHEN 00949 COMBINED COMBINED SIVE 2 PHYSICIAN PHYSICIAN METABOLIC S LA S LA PANEL COLLECTIO 58073 COMBINED COMBINED N VENOUS 2 PHYSICIAN PHYSICIAN BLOOD S LA S LA VENIPUNCT URE RADIOLOGI 94859 [facility]AL FRY C EXAM 2 RADIOLOGY JAMES CHEST 2 ASSOC VIEWS FRONTAL&L ATERAL COMPREHEN 65215 [facility] SIVE 2 [facility] METABOLIC [facility] HOSP PANEL NONCOVERE A9270 [facility] D ITEM OR 2 [facility] HOSP PROTHROMB 15942 [facility] IN TIME 2 [facility] HOSP NATRIURET 62249 [facility] IC 2 [facility] PEPTIDE HOSP HOSP BLOOD 21332 [facility] COUNT 2 [facility] WORSH[facility] COMPLETE HOSP HOSP AUTO&AUTO DIFRNTL WBC THER 97567 [facility] PROPH/DX 2 WORSHIP WORSHIP NJX IV HOSP HOSP PUSH SINGLE/1S T SBST/DRUG PROTHROMB 43477 COMBINED COMBINED IN TIME 2 PHYSICIAN PHYSICIAN S LA S LA COLLECTIO 41891 COMBINED COMBINED N VENOUS 2 PHYSICIAN PHYSICIAN B[place] [address] [facility] ABDOMEN & 2 [facility] PELVIS [facility] W/CONTRAS T MATERIAL COLLECTIO 80708 [facility] N VENOUS 2 [facility] VENIPUNCT URE URNLS DIP [address] STICK/TAB HOSPITAL HOSPITAL LET REAGENT AUTO MICROSCOP Y BASIC 49278 [facility] METABOLIC 2 [facility] CALCIUM TOTAL PROTHROMB 14145 [facility] IN TIME [address] [facility] THER 56057 YNES QUICK PROPH/DX 2 [facility] HOSPITAL PUSH SINGLE/1S T SBST/DRUG BLOOD 66356 YNES QUICK COUNT 2 [facility] AUTO&AUTO DIFRNTL WBC PROTHROMB 40291 COMBINED COMBINED IN TIME 2 PHYSICIAN PHYSICIAN S LA S LA COLLECTIO 00169 COMBINED COMBINED N VENOUS 2 PHYSICIAN PHYSICIAN BLOOD S LA S LA VENIPUNCT [facility] [address] [facility] 2 MEDICINE DEN DAY SERV MANAGEMEN @CTRL BAP T > 30 MIN SBSQ 15708 [place] [address] MEDICINE DEN CARE/DAY SERVICES 25 MINUTES SBSQ 11482 [place] [address] MEDICINE DEN CARE/DAY SERVICES 25 MINUTES SBSQ 40194 [place] [address] MEDICINE DEN CARE/DAY SERVICES 35 MINUTES SBSQ 53425 [place] [address] MEDICINE DEN CARE/DAY SERVICES 35 MINUTES SBSQ 09285 [place] [address] MEDICINE CARE/DAY SERV 35 @CTRL BAP MINUTES INITIAL [address] CARE/DAY CLINIC 50 PSC MINUTES SBSQ 77705 [place] [address] ONCOLOGY CARE/DAY ASSOCIATE 15 S MINUTES INITIAL [address] CARE/DAY [place] [address] [place] [address] [facility] GARZA ADA ABDOMEN & 2 RADIOLOGY PELVIS ASSOC W/O CONTRAST MATERIAL DUP-SCAN 62629 [facility] XTR VEINS 2 ANT COMPLETE CARDIOLOG Y AT CENT BILATERAL STUDY INTRO 49904 KEE SWEET CATHETER 2 THO THO SUPERIOR/ INFERIOR [place] 66960 KEE SCHWCATA INTRVAS 2 THO THO VC FILTR W/WO VAS ACS VSL SELXN RS&I ANGIOCARD 8851 [facility] IOGRAPHY 2 [facility] CAVAE INTERRUPT 387 [facility] ION OF 2 [facility] CAVA VENOGRAPH 85847 UNITED SCHWARCZ Y CAVAL 2 SURGICAL THO INFERIOR ASSOCIATE SERIALOGR S APHY RS&I ECHO 27807 [facility] TTHRC R-T 2 IV HEN 2D CARDIOLOG W/WOM-MOD Y AT CENT E COMPL SPEC&COLR D ECG 58201 ROBBY BUSTAMANTE ROUTINE 2 EMERGENCY EMERGENCY ECG SERVICES SERVICES W/LEAST 12 LDS I&R ONLY RADIOLOGI 28967 [facility] [place] SCALF MOUSTAPHA C EXAM 2 RADIOLOGY CHEST 2 VIEWS FRONTAL&L ATERAL COMPREHEN 37636 YNES QUICK SIVE 2 [facility] PANEL COLLECTIO 93477 YNES QUICK N VENOUS 2 [facility] VENIPUNCT URE THERAPEUT 17786 RASHIDACOX [place] LAWNGINA LUDWIG IC 2 [facility] IV PUSH EACH NEW DRUG THROMBOPL 78729 YNES QUICK ASTIN 2 [facility] PARTIAL PLASMA/WH OLE BLOOD PROTHROMB 52615 YNES QUICK IN TIME [address] [facility] RADIOLOGI 42674 ROBBY BUSTAMANTE C 2 EMERGENCY EMERGENCY EXAMINATI SERVICES SERVICES ON CHEST SINGLE VIEW FRONTAL THER 58459 YNES QUICK PROPH/DX 2 [facility] HOSPITAL PUSH SINGLE/1S T SBST/DRUG FIBRIN 83119 YNES QUICK DGRADJ 2 [facility] D-DIMER QUANTITAT JOANIE ECG 84502 RASHIDAGENESIS QUICK ROUTINE 2 [facility] W/LEAST 12 LDS TRCG ONLY W/O I&R THERAPEUT 67739 YNES QUICK IC 2 [facility] T[facility]/DX INJECTION SUBQ/IM CULTURE 68213 RASHIDACOX [place] LAWNGINA QUICK BACTERIAL 2 [facility] AEROBIC W/ID ISOLATES CT THORAX [address]50 YNES QUICK [address] [place] [address]/[facility] T MATERIAL BLOOD 35028 YNES QUICK COUNT 2 [facility] AUTO&AUTO DIFRNTL WBC PRTBLE E0431 ABDON COPPOLA GASEOUS 2 HOME HOME O2 SYS MEDICAL MEDICAL RENT; EQUIPME EQUIPME FLWMTR HUMIDFR&M ASK O2 CONC 1 E1390 ABDON ABDON DEL PORT 2 HOME HOME 85%/>02 MEDICAL MEDICAL CONC AT EQUIPME EQUIPME PRSC FLW RATE PROTHROMB 79943 [facility] IN TIME 2 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 CUL BACT [address] XCPT 2 [facility] URINE INC INC BLOOD/STO OL AEROBIC ISOL SMR PRIM [address] SRC 2 [facility] GRAM/GIEM INC INC SA STAIN BCT FUNGI/LEODAN L CULTURE [address] BACTERIAL 2 [facility] BLOOD INC INC AEROBIC W/[place] [address] LAB [facility] PROSTATE 2 AMERIC AMERIC 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 TOTAL BLOOD [address] COUNT 2 [facility] COMPLETE INC INC AUTO&AUTO DIFRNTL WBC PRESSURIZ [address] ED/NONPRE 2 [facility] SSURIZED [place] [address] INFUSION 2 [facility] THERAPY/P INC INC ROPHYLAXI S /DX 1ST TO [address] IC 2 [facility] INJECTION INC INC IV PUSH EACH NEW DRUG BASIC 71445 [facility] METABOLIC 2 AMERIC 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 CYTP 86306 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 2 Y MONICA OF Y MONICA OF CELL LINDA LINDA ENHANCEME H H NT INTERPJ XCPT C/V URNLS DIP 18562 [facility] 2 [place] THO STICK/TAB CLINIC LET PSC REAGENT AUTO MICROSCOP Y RADIOLOGI [address] C EXAM 2 [facility] CHEST 2 INC INC VIEWS FRONTAL&L ATERAL PRTBLE E0431 ABDON ABDON GASEOUS 2 HOME HOME O2 SYS MEDICAL MEDICAL RENT; EQUIPME EQUIPME FLWMTR HUMIDFR&M ASK O2 CONC 1 E1390 ABDON COPPOLA DEL PORT 2 HOME HOME 85%/>02 MEDICAL MEDICAL CONC AT EQUIPME EQUIPME PRSC FLW RATE MRI BRAIN 41223 NEURODIAG [place] BRAIN 2 NOSTICPSC ROL STEM W/[place] [address] HEAD/BRAI 2 [facility] N W/O INC INC CONTRAST MATERIAL THERAPEUT [address] IC 2 [facility] PROPHYLAC INC INC TIC/DX INJECTION SUBQ/IM 3D [address] RENDERING 2 [facility] W/INTERP INC INC & POSTPROCE SS SUPERVISI ON CT ORBIT 77727 NIKA ARENAS SELLA/POS 2 MEDICAL STEFF T IMAGING FOSSA/EAR ASS W/O CONTRAST MATRL COLLECTIO 49862 [place] N VENOUS 2 [facility] VENIPUNCT URE PROTHROMB 15633 [place] IN TIME [address] [facility] PROTHROMB 17693 [place] IN TIME [address] [facility] COLLECTIO 55924 [place] N VENOUS 2 [facility] URE RADIOLOGI 65776 [place] C EXAM [address] VIEWS FRONTAL&L ATERAL DUP-SCAN 69713 [facility] XTR VEINS 2 SUZANNE III J COMPLETE CARDIOLOG Y CLINIC BILATERAL STUDY O2 CONC 1 E1390 ABDON COPPOLA DEL PORT 2 HOME HOME 85%/>02 MEDICAL MEDICAL CONC AT EQUIPME EQUIPME [facility] FLW RATE PRTBLE E0431 ABDON COPPOL[place] GASEOUS 2 HOME HOME O2 SYS MEDICAL MEDICAL RENT; EQUIPME EQUIPME FLWMTR [facility] 17662 [facility] 2 EMERGENCY DENISE DAY SERVICES MANAGEMEN T > 30 MIN SBSQ 15814 [facility] 2 EMERGENCY DENISE CARE/DAY SERVICES 25 MINUTES SBSQ 40885 [facility] 2 EMERGENCY DENISE CARE/DAY SERVICES 25 MINUTES SBSQ 50800 [facility] 2 EMERGENCY DENISE CARE/DAY SERVICES 25 MINUTES ECHO 52221 PEPE NEVAREZ NEVAREZ PEPE TTHRC R-T 2 2D CONSULTIN W/WOM-MOD G SERV E COMPL SPEC&COLR D INITIAL 08519 [facility] 2 EMERGENCY DENISE CARE/DAY SERVICES 70 MINUTES DUP-SCAN 41011 PEPE NEVAREZ NEVAREZ PEPE XTR VEINS 2 MD COMPLETE CONSULTIN G SERV BILATERAL STUDY RADIOLOGI 25941 [facility] [place] MAT C 2 RADIOLOGY EXAMINATI ON CHEST SINGLE VIEW FRONTAL CT THORAX 22604 [facility] [place] IRVIN 2 RADIOLOGY RAY W/CONTRAS T MATERIAL CRITICAL 57636 [facility] CHAUDHRY CARE 2 EMERGENCY ILL/INJUR SERVICES ED PATIENT INIT 30-74 MIN ECG 82511 ROBBY CHAUDHRY ROUTINE 2 EMERGENCY ECG SERVICES W/LEAST 12 LDS I&R ONLY COMPREHEN 17202 [facility] SIVE 2 [facility] METABOLIC HOSP HOSP PANEL BLOOD 21773 [facility] COUNT 2 WORSHIP WORSHIP COMPLETE HOSP HOSP AUTO&[place] [address] [facility] BLOOD/URI 2 WORSHIP WORSHIP C ACID HOSP HOSP CULTURE 74100 [facility] BACTERIAL 2 [facility]SH[facility] WORSHIP HOSP HOSP QUANTTATI VE COLONY COUNT URINE URNLS DIP 14290 [facility] CENTRAL 2 WORSHIP WORSHIP STICK/TAB HOSP HOSP LET REAGENT AUTO MICROSCOP Y URNLS DIP 64600 [facility] 2 STICK/TAB LET RGNT NON-AUTO W/O MICRSCP IAADIADOO 29254 WEST MUR WEST MUR 2 STREPTOCO CCUS GROUP A HEMOGLOBI 13334 WEST MUR WEST MUR N 2 GLYCOSYLA CORTNEY A1C BLOOD [address] GASES ANY 2 MEM H[facility] INC INC COMBINATI ON PH PCO2 PO2 CO2 HCO3 RADIOLOGI [address] C 2 [facility] EXAMINATI INC INC ON CHEST SINGLE VIEW FRONTAL NATRIURET [address] IC 2 [facility] [place] [address] TROPONIN 2 MEM H[facility]OS[facility] QUANTITAT INC INC JOANIE BLOOD [address] COUNT 2 [facility] COMPLETE INC INC AUTO&AUTO DIFRNTL WBC CULTURE [address] BACTERIAL 2 [facility] BLOOD INC INC AEROBIC W/ID ISOLATES ECG [address] ROUTINE 2 [facility] ECG INC INC W/LEAST 12 LDS TRCG ONLY W/O I&R CREATINE [address] KINASE 2 [facility] TOTAL INC INC IAADI [address] INFLUENZA 2 [facility] B VIRUS INC INC IAADI [address] INFFLUENZ 2 [facility] A A VIRUS INC INC CREATINE [address] KINASE MB 2 MEM [facility] FRACTION INC INC ONLY THERAPEUT [address] IC 2 [facility] INJECTION [place] [address] INFUSION 2 [facility] THERAPY/P INC INC ROPHYLAXI S /DX 1ST TO [address] ED/NONPRE 2 [facility] SSURIZED INC INC INHALATIO N TREATMENT COMPREHEN [address] SIVE 2 [facility] METABOLIC INC INC PANEL ECG [address] ROUTINE 2 [facility] W/LEAST P P 12 LDS I&[place] [address] [facility] [place] MAT HEAD/BRAI 1 RADIOLOGY N W/O CONTRAST MATERIAL BLOOD [address] COUNT 1 [facility] COMPLETE INC INC AUTO&AUTO DIFRNTL WBC COMPREHEN [address] SIVE 1 [facility] METABOLIC INC INC PANEL INSJ TEMP 21383 [place] NDWELLG 1 [facility] BLADDER INC INC CATHETER SIMPLE URNLS DIP [address] 1 [facility] STICK/TAB INC INC LET REAGENT AUTO MICROSCOP Y SPMTRY 28376 WEST MUR WEST MUR W/VC 1 EXPIRATOR Y HANSEL W/WO MXML VOL VNTJ FLUOROSCO 82351 [facility] PIC 1 PAIN PAIN GUIDANCE MEDICIINE MEDICIINE NEEDLE PSC PSC PLACEMENT ADD ON MULTIPLE 58199 [facility]VANCED ADVANCED NERVE 1 PAIN PAIN BLOCK MEDICIINE MEDICIINE INJECTION PSC PSC S RIB NERVES BLOOD 96987 [facility] 1 [facility] MCRSCP W/MNL DIFRNTL WBC COUNT RADEX 62633 [facility] [place] SPINE 1 RADIOLOGY RHO THORACIC 2 VIEWS HEMOGLOBI 54136 [facility] 1 [facility] CORTNEY A1C BLOOD 10337 [facility] COUNT 1 [facility] AUTOMATED RADIOLOGI 01297 [facility] [place] C EXAM 1 RADIOLOGY RHO CHEST 2 VIEWS FRONTAL&L ATERAL COLLECTIO 97928 [facility] N VENOUS 1 [facility] VENIPUNCT URE LIPID 99638 [facility] PANEL [address] [facility] COMPREHEN 18445 [facility] SIVE 1 [facility] PANEL URNLS DIP 80451 [facility] 1 [facility] STICK/TAB HOSPITAL HOSPITAL LET [place] [address] [facility] THYROID 1 [facility] STIMULATI [facility] [place] [address] [facility] FREE 1 [facility] THYROXINE [facility] INJECTION 43093 [facility] [place] 1 PAIN [place] ANESTHETI MEDICIINE C AGENT PSC [facility] NRV INJECTION J3301 [facility] [place] 1 [place]IN [place] TRIAMCINO MEDICIINE LONE PSC ACETONIDE NOS 10 MG INJECTION J3301 [facility] [place] 1 [place]IN [place] TRIAMCINO MEDICIINE LONE PSC ACETONIDE NOS 10 MG NJX 38066 [facility] [place] DX/THER 1 [place] [place] AGT PVRT MEDICIINE FACET JT PSC CRV/THRC 1 LEVEL LOCM Q9965 [facility] [place] 100-199 1 [place] [place] MG/ML MEDICIINE IODINE PSC CONCENTRA TION PER ML MODERATE 23165 [facility] [place] SEDATJ 1 [place] [place] SAME MEDICIINE PHYS/QHP PSC 5/>YRS INIT 30 MIN NJX 01592 [facility] [place] DX/THER 1 [place] AGT PVRT MEDICIINE FACET JT PSC CRV/THRC 2ND LEVEL NJX 31434 [facility] [place] DX/THER 1 [place] AGT PVRT MEDICIINE FACET JT PSC CRV/THRC 3+ LEVEL INFLUENZA Q2038 [facility] MUR VACC 1 SPLIT VIRUS 3 YRS & > IM FLUZONE ADMINISTR G0008 [facility] ATION OF 1 INFLUENZA VIRUS VACCINE OPHTH [address] [facility] 1 VISION XM&EVAL COMPRE NEW PT 1/> VST NJX 73021 [facility] [place] DX/THER 1 [place] [place] SBST MEDICIINE EPIDURAL/ PSC SUBRACH CERV/THOR ACIC MODERATE 41330 [facility] [place] SEDATJ 1 [place] SAME MEDICIINE PHYS/QHP PSC 5/>YRS INIT 30 MIN INJECTION J3301 [facility] [place] 1 [place] TRIAMCINO MEDICIINE LONE PSC ACETONIDE NOS 10 MG FLUOR 60011 [facility] [place] NEEDLE/CA 1 [place] TH MEDICIINE SPINE/PAR PSC ASPINAL DX/THER ADDON HEMOGLOBI [address] [facility] [facility] MUR N 1 GLYCOSYLA CORTNEY A1C NJX 08053 [facility] [place] DX/THER 1 [place] AGT PVRT MEDICIINE FACET JT PSC CRV/THRC 2ND LEVEL NJX 43290 [facility] [place] DX/THER 1 [place] AGT PVRT MEDICIINE FACET JT PSC CRV/THRC 3+ LEVEL INJECTION J3301 [facility] [place] 1 [place] TRIAMCINO MEDICIINE LONE PSC ACETONIDE NOS 10 MG MODERATE 49208 [facility] [place] SEDATJ 1 [place] SAME MEDICIINE PHYS/QHP PSC 5/>YRS INIT [address] [facility] 100-199 1 [place] MG/ML MEDICIINE IODINE PSC CONCENTRA TION [place] NJX 23210 [facility] DX/THER 1 [place] AGT PVRT MEDICIINE FACET JT PSC CRV/THRC 1 LEVEL INJECTION J1030 [facility] 1 METHYLPRE DNISOLONE ACETATE 40 MG INJECTION J1100 [facility] 1 DEXAMETHO SONE SODIUM PHOSPHATE 1 MG MRI 22543 NEURODIAG [place] SPINAL 1 NOSTICPSC ROL CANAL THORACIC W/O CONTRAST MATRL MRI 89489 NEURODIAG [place] SPINAL 1 NOSTICPSC ROL CANAL LUMBAR W/O CONTRAST MATERIAL MRI 87232 NEURODIAG [place] ABDOMEN 1 NOSTICPSC ROL W/O & W/CONTRAS T MATERIAL MRI 17231 ARI[facility] OBREGONON SPINAL 1 [facility] CANAL INC INC CERVICAL W/O CONTRAST MATRL 3D [address] RENDERING 1 [facility] W/INTERP INC INC & POSTPROCE SS SUPERVISI ON PROSTATE G0103 [facility] CANCER 1 AMERIC AMERIC SCREENING 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 ; PSA TEST CT THORAX 90730 [facility] [place] JAIME W/O [address] [place] [address] [facility] RHETT SANDOVAL ABDOMEN 1 RADIOLOGY KEITH W/O CONTRAST MATERIAL RADIOLOGI 66739 [facility] [place] SEAN G C EXAM 1 RADIOLOGY CHEST 2 VIEWS FRONTAL&L ATERAL HEMOGLOBI 73349 [facility] N 1 GLYCOSYLA CORTNEY A1C NATRIURET 38534 [facility] IC 1 [facility]LOOD 00421 [facility] COUNT [facility] AUT[facility]&[place] [address] [facility] TROPONIN 1 [facility] JOANIE ECG 55762 [facility] ROUTINE 1 [facility] W/LEAST 12 LDS TRCG ONLY W/O I&R THER 41795 RASHID[place]OX [place] LAW[place] QUICK PROPH/DX 1 [facility] PUSH SINGLE/1S T SBST/DRUG FIBRIN 72242 [facility] [place] D[facility]J 1 [facility] D-DIMER QUAL/SEMI FLACO PROTHROMB 55773 [facility] LUD[facility] IN TIME [address] [facility] THROMBOPL 33338 [facility] ASTIN 1 [facility] PARTIAL PLASMA/WH OLE BLOOD RADIOLOGI 93588 [facility] [place] CARINA MAT C EXAM 1 RADIOLOGY CHEST 2 VIEWS FRONTAL&L ATERAL COLLECTIO 12600 [facility] N VENOUS 1 [facility] VENIP[facility] URE COMPREHEN 61008 [facility] SIVE 1 [facility] PANEL Encounters Encounter Start End Date Code Location Performer Type Date [facility]OSP[facility] [place] - 7 7 [facility] OFF[facility] 41312 [facility] 7 7 PHYSICIAN T VISIT PRACTICE 25 L MINUTES EMERGENCY 38690 ADRIANE BURKS 7 7 PHYSICIAN U DEPARTMEN S, PLLC T VISIT HIGH/URGE NT SEVERITY [facility] 7 7 [facility] [place] - 7 7 [facility] OFF[facility] 93695 [facility] 7 7 [place] [facility] 25 PSC MINUT[facility] OFFICE 29853 [facility] 7 7 PHYSICIAN T VISIT PRACTICE 15 L MINUTES OFFICE 94153 [facility]ASHIDACOX [facility] LAW[facility]INA [facility] 7 7 PHYSICIAN T VISIT PRACTICE 15 L MINUTES EMERGENCY 70859 [facility] DEPT 7 7 JEROD VISIT EMERGENCY HIGH PHYS SEVERITY& THREAT FUNCJ OFFICE 30755 [facility] 7 7 [place] [facility] 40 PSC MINUTES HOSPITAL [place] - 7 7 [facility]IEN [facility] T OFFICE 16018 [facility] 7 7 PHYSICIAN T [facility]ISIT PRACTICE 15 L MINUTES OFFICE 24869 [facility]OLOG [facility] 7 7 Y T VISIT ASSOCIATE 25 S OF CIELO MINUTES EMERGENCY 95661 ADRIANE GOLDSMITH 7 7 PHYSICIAN DEPARTMEN S, PLLC T VISIT HIGH/URGE NT SEVERITY OFFICE 40256 [facility]ES [facility] 7 7 PHYSICIAN T VISIT PRACTICE 15 L MINUTES HOSPITAL [place] - 7 7 [facility] T OFFICE 11153 Y[facility]ES [facility] 7 7 PHYSICIAN T VISIT PRACTICE 15 L MINUTES OFFICE 37776 [facility] 7 7 [place] [facility] 15 PSC MINUTES EMERGENCY 43813 [place] 7 7 [facility] MODERATE SEVERITY [facility] [place] - 7 7 [facility] OUTPATIEN [facility] HOSPITAL OZIELON - 6 6 [facility] EMERGENC[facility] 36029 [facility] 6 6 [facility] STRIDE DEPARTMEN INC PROGRAM T VISIT HIGH/URGE NT SEVERITY [facility] 6 6 [facility] T OFFICE 79186 [facility] 6 6 [place] JUS T VISIT CLINIC 15 PSC MINUTES OFFICE 60806 NE[facility]OLOG [facility] 6 6 Y [place] T [facility]ISIT ASSOCIATE 40 S OF CIELO MINUTES [facility]OSPITAL [facility] - 6 6 EAST OUTPATIEN T OFFICE 67521 DAPHNE DAPHNE OUTPATIEN 6 6 ANA ANA T NEW 45 MINUTES OFFICE 41553 YENY AJI VIOLET OUTPATIEN 6 6 NE HEALTH T VISIT MEDICAL 15 G MINUTES OFFICE [id number] YENY LUU VIOLET OUTPATIEN 6 6 [facility] T NEW 45 MEDICAL MINUTES G [facility] WORSHIP - 6 6 [facility] 42644 PEPE NEVAREZ NEVAREZ PEPE OUTPATIEN 5 5 T VISIT CONSULTIN 40 G SRV MINUTES EMERGENCY 03336 [facility] 5 5 [facility] DEPARTMEN INC T VISIT MODERATE SEVERITY HOSP[facility] [place] - 5 5 [facility] OUTPATIEN INC T OFFICE 14134 STEPHANIE SILVA OUTPATIEN 5 5 [place] [facility] T VISIT CLINIC 15 PSC MINUTES [facility]OSPITAL [facility] - 5 5 [facility] OUTPATIEN INC T OFFICE 06796 VIJAY GARLAND BUX ANJ OUTPATIEN 5 5 T NEW 30 MINUTES HOSPITAL [facility] - 5 5 [facility] OUTPATIEN [facility] [place] - 5 5 [facility] OUTPATIEN INC HOSPITAL [place] [facility] 5 5 [facility] OUTPATIEN [facility] HOSPITAL UNIVERSIT - 5 5 Y INPATIENT HOSPITAL OFFICE 97330 STEPHANIE SILVA OUTPATIEN 5 5 [facility] 15 PSC MINUTES OFFICE [address] [facility] 2 2 T VISIT 25 MINUTES EMERGENCY 77735 [facility] 2 2 [facility] DEPARTMEN HOSP T VISIT HIGH/URGE NT SEVERITY HOSPITAL [facility] - 2 2 [facility] OUTPATIEN HOSP T OFFICE 30966 [facility] 2 2 T VISIT 25 MINUTES HOSPITAL [facility] - 2 2 [facility] OUTPATIEN INC T EMERGENCY 73580 [facility] 2 2 [facility] DEPARTMEN INC T VISIT HIGH/URGE NT SEVERITY EMERGENCY 60312 ROBBY ZIEGLER DEPT 2 2 EMERGENCY III [facility] HIGH SEVERITY& THREAT FUNCJ OFFICE 59389 [facility] OUTPATIEN 2 2 T VISIT 25 MINUTES HOSPITAL [place] - 2 2 [facility] OUTPATIEN INC T EMERGENCY 97402 [place] 2 2 [facility] DEPARTMEN INC T VISIT HIGH/URGE NT SEVERITY OFFICE 34373 [facility] OUTPATIEN 2 2 T VISIT [address] [facility] DEPT 2 2 JEROD VISIT EMERGENCY HIGH PHYS SEVERITY& THREAT FUNCJ OFFICE 32670 [facility] OUTPATIEN 2 2 T VISIT [address] INPATIENT OFFICE 06413 SCHWARCZ SCHWARCZ OUTPATIEN 2 2 THO THO T VISIT 25 MINUTES OFFICE 70517 [facility] OUTPATIEN 2 2 FOOT & JR THO T VISIT ANKLE 10 SPECI MINUTES OFFICE 93149 [facility] MUR OUTPATIEN 2 2 T VISIT 15 MINUTES OFFICE 07682 [facility] OUTPATIEN 2 2 [place] THO T VISIT CLINIC 25 PSC MINUTES [facility] [place] - 2 2 [facility] T OFFICE 29343 [facility] MUR OUTPATIEN 2 2 T VISIT 25 MINUTES OFFICE 51413 CASSIE VANEGAS OUTPATIEN 2 2 ONCOLOGY T VISIT ASSOCIATE 15 S MINUTES HOSPITAL [facility] - 2 2 [facility] OUTPATIEN HOSP T HOSPITAL [facility] - 2 2 [facility] OUTPATIEN HOSP T EMERGENCY 84597 [facility] 2 2 [facility] T VISIT HIGH/URGE NT SEVERITY OFFICE 34922 [facility] OUTPATIEN 2 2 T VISIT 25 MINUTES [facility] [place] - 2 2 [facility] T EMERGENCY 38466 PING KOEHLER DEPT 2 2 MEDICAL PAT VISIT GROUP, HIGH PLLC SEVERITY& THREAT FUN EMERGENCY [address] [facility] T VISIT HIGH/URGE NT SEVERITY HOSPITAL [facility] - 2 2 [facility] INPATIENT HOSP EMERGENCY 13451 YNES DEPT 2 2 [facility] HIGH SEVERITY& THREAT [facility] HOSPITAL YNES - 2 2 [facility] [place] - [address] [facility] T EMERGENCY 22761 ROBBY ALVARADO DEPT 2 2 EMERGENCY [facility] HIGH SEVERITY& THREAT FUNCJ EMERGENCY 33632 [facility] 2 2 [facility] INC T VISIT HIGH/URGE NT SEVERITY OFFICE 28482 [facility] OUTPATIEN 2 2 [facility] T VISIT CLINIC 40 PSC MINUTES OFFICE 14734 [facility] OUTPATIEN 2 2 T VISIT 15 MINUTES OFFICE 25030 [facility] OUTPATIEN 2 2 T VISIT 15 MINUTES EMERGENCY [address] [place] [address] [facility] T VISIT LOW/MODER SEVERITY EMERGENCY 89215 ROBBY ALVARADO 2 2 EMERGENCY [facility] EMERGENCY DEPARTMENT SERVICES T VISIT HIGH/URGE NT SEVERITY [facility]OSPITAL [place] - 2 2 [facility] OUT[facility] T OFFICE 63694 YEYO KENNEY OUTPATIEN 2 2 MD RG VIOLET T NEW 60 PSC MINUTES OFFICE 27012 [facility] OUTPATIEN 2 2 T VISIT 15 MINUTES EMERGENCY 83421 [place] 2 2 [facility] DEPARTMEN INC T VISIT MODERATE SEVERITY EMERGENCY 00321 ROBBY BOLTON DEPT 2 2 EMERGENCY VISIT SERVICES [facility]IGH SEVERITY& THREAT [facility] - 2 2 [facility] [place] - 2 2 [facility] T OFFICE 29754 [facility] OUTPATIEN 2 2 T VISIT 25 MINUTES OFFICE 63301 [facility] OUTPATIEN 2 2 T VISIT 15 MINUTES [facility] [place] - 2 2 [facility] [place] - 2 2 [facility] T OFFICE 01658 [facility] OUTPATIEN 2 2 T VISIT 25 MINUTES [facility] [place] - 2 2 [facility]IENT HOSP[facility] OFFICE 46458 [facility] OUTPATIEN 2 2 T VISIT 15 MINUTES EMERGENCY 52086 [facility] 2 2 [facility] H[facility] T VISIT LOW/MODER SEVERITY HOSPITAL [facility] - 2 2 [facility] OUTPATIEN HOSP T OFFICE 84376 [facility] OUTPATIEN 2 2 T VISIT 25 MINUTES EMERGENCY 11942 ROBBY BOLTON 2 2 EMERGENCY DEPARTMEN SERVICES T VISIT HIGH/URGE NT SEVERITY EMERGENCY 83834 ROBBY RUTH DEPT 2 2 EMERGENCY MIGUEL VISIT SERVICES HIGH SEVERITY& THREAT FUNJ EMERGENCY 64426 [place] 2 2 [facility] DEPARTMEN INC T VISIT HIGH/URGE NT SEVERITY HOSPITAL [place] - 2 2 [facility] OUTPATIEN [facility] OFFICE [address] [facility] [facility] 2 2 T VISIT 15 MINUTES [facility] [place] [facility] 1 1 [facility] [place] - 1 1 [facility] OUTPATIEN [facility] T EMERGENCY 62262 [place] 1 1 [facility] T VISIT MODERATE SEVERITY EMERGENCY 86717 [facility] SOK[facility] BAB 1 1 DEPARTMEN T VISIT HIGH/URGE NT SEVERITY OFFICE 61263 [facility] OUTPATIEN 1 1 T VISIT 15 MINUTES OFFICE 05136 [facility] OUTPATIEN 1 1 T VISIT 15 MINUTES OFFICE 90023 [facility] OUT[facility] 1 1 PAIN T VISIT MEDICIINE 15 PSC MINUTES [facility] [place] - 1 1 [facility] OFFICE 02876 [facility] OUTPATIEN 1 1 T VISIT 15 MINUTES OFFICE 01359 [facility] [place] OUT[facility] 1 1 PAIN [place] T VISIT MEDICIINE 25 PSC MINUTES OFFICE 86197 [facility] OUTPATIEN 1 1 T VISIT 15 MINUTES OFFICE 23760 [facility] OUTPATIEN 1 1 T VISIT 15 MINUTES OFFICE 88544 [facility] [place] OUTPATI[facility] 1 1 PAIN [place] T VISIT MEDICIINE 25 PSC MINUTES OFFICE 27477 [facility] [place] OUTPATIEN 1 1 PAIN [place] T VISIT MEDICIINE 40 PSC MINUTES OFFICE 62455 [facility] OUTPATIEN 1 1 T VISIT 15 MINUTES OFFICE 39570 [facility] OUTPATIEN 1 1 T VISIT 15 MINUTES OFFICE 17364 [facility] OUTPATIEN 1 1 T VISIT 25 MINUTES HOSPITAL [place] - [address] [facility] T OFFICE 88141 [facility] OUTPATIEN 1 1 T VISIT 15 MINUTES [facility] [place] - 1 1 [facility] T OFFICE 52604 [facility] OUTPATIEN 1 1 T VISIT 25 MINUTES OFFICE 17899 [facility] OUTPATIEN 1 1 T VISIT 25 MINUTES EMERGENCY [address] [place] [address] [facility] T VISIT HIGH/URGE NT [facility] [place] - 1 1 [facility] T
--- OUTSIDE RECORDS SUMMARY | 2017-07-09 06:47 | External Medical Summary Rpt | CCD ---
Author Author , [facility] Organization [facility] Address Unknown Phone [email or web address] Immunization Name Date Rout CVX Reac Dose [...]
--- OUTSIDE RECORDS SUMMARY | 2017-07-09 06:47 | External Medical Summary Rpt ---
Author Author KEARAALINE Purvis, [facility] [employer] [facility] [employer] Address Unknown Phone Unavailable [...] TO 2017 9:10 thrombpla M PM stin time [facility] (aPTT) [facility] in (PATIENT Platelet ON poor COUMADIN) plasma [...] - 2.0 % Normal No Jul 01 informati 2016 9:10 leukocyte on in PM s in source Blood by data Automated count Eosinophi 0.0 - 0.4 K/mm3 Normal No Oct 6 ls informati 2016 9:10 [#/volume on in PM ] in source Blood by data Automated count Eosinophi 0.1 - % Normal No Jul 01 ls/100 12.0 informati 2017 9:10 leukocyte on in PM s in source Blood by data Automated count Granulocy 1.3 - 8.0 K/mm3 Normal No Jun 6 constantino informati 2016 9:10 [#/volume on in PM ] in source Blood by data Automated count Granulocy 37.0 - % Normal No Jul 01 constantino/100 80.0 informati 2017 9:10 leukocyte on in PM s in source Blood by data Automated count Hematocri 42.0 - % Normal No Jul 01 t [Volume 52.0 informati 2017 9:10 on in PM Fraction] source of Blood data Hemoglobi 14.1 - g/dL Normal No Jul 01 n 18.0 informati 2016 9:10 [Mass/vol on in PM ume] in source Blood data Lymphocyt 0.7 - 4.5 K/mm3 Normal No Jul 01 es informati 2017 [...] fluid Erythrocy 11.5 - % Normal No Oct 6 te 17.5 informati 2017 9:10 distribut on in PM ion width source [Entitic data volume] by Automated count Leukocyte 4.8 - K/MM3 Normal No Oct 6 s 10.8 informati 2017 9:10 [#/volume on in PM ] in source Blood data
--- OUTSIDE RECORDS SUMMARY | 2017-07-09 06:47 | External Medical Summary Rpt | CCD ---
Author Author , [facility] Organization [facility] Address Unknown Phone [email or web address] Immunization Name Date Rout CVX Reac Dose [...]
--- OUTSIDE RECORDS SUMMARY | 2017-07-09 06:47 | External Medical Summary Rpt ---
Author Author KEARAALINE Purvis, [facility] [employer] Organization [facility] [employer] Address Unknown Phone Unavailable [...] thrombpla M PM stin time [facility] (aPTT) [place] in (PATIENT Platelet ON poor COUMADIN) plasma [...]
== END 2017-07-07 15:15 | disposition home or self-care (01) ==
LOC: CARDIO 14:53 → 2ND 16:48
PROVIDERS: Emergency Medicine; Internal Medicine
PROC: B2111ZZ Fluoroscopy of Multiple Coronary Arteries using Low Osmolar Contrast (ICD-10-PCS; 2017-07-06)
PROC: B2151ZZ Fluoroscopy of Left Heart using Low Osmolar Contrast (ICD-10-PCS; 2017-07-06)
PROC: 4A033BC Measurement of Arterial Pressure, Coronary, Percutaneous Approach (ICD-10-PCS; 2017-07-06)
PROC: 027135Z Dilation of Coronary Artery, Two Arteries with Two Drug-eluting Intraluminal Devices, Percutaneous Approach (ICD-10-PCS; 2017-07-06)
PROC: 4A023N7 Measurement of Cardiac Sampling and Pressure, Left Heart, Percutaneous Approach (ICD-10-PCS; principal; 2017-07-06 09:00)
DX: I25.110 Atherosclerotic heart disease of native coronary artery with unstable angina pectoris (principal); Z72.0 Tobacco use; I12.9 Hypertensive chronic kidney disease with stage 1 through stage 4 chronic kidney disease, or unspecified chronic kidney disease; E11.22 Type 2 diabetes mellitus with diabetic chronic kidney disease; N18.4 Chronic kidney disease, stage 4 (severe)
CPT/HCPCS: C1725; C1769; C1876; G0378; J0153; J1644; Q9967

== ENCOUNTER → 2017-07-21 | Outpatient (CLI) | payer MEDICARE, MEDICAID ==
[~2017-07-21] MED LIST changes: +ASPIRIN 81MG TA81 MG PO; +BRILINTA90 M1 PO; +FLUTICASONE 50M16 GM; +LEVAQUIN500 MG PO; +RANITIDINE HCL150 MG PO
[2017-07-21 10:44] LABS: BUN 28 mg/dL (7-18); GFR (ESTIMATED) 21 ML/MIN (>60)
--- NOTE | 2017-07-24 10:22 | RADIOLOGY REPORT PS360 ---
CT CHEST W/O CONTRAST HISTORY: SOA,CAD,CHEST PAIN ORDERING PHYSICIAN: Jonathan Calles MD PATIENT AGE: 62 years TECHNIQUE: Helical acquisition obtained without contrast. High-resolution images are also obtained.. Axial, sagittal, and coronal reformatted images are generated and reviewed. COMPARISON: 01/31/2013 FINDINGS: There is a coronary artery stent in the LAD. Normal heart size. An additional stent is present in the PDA. Minimal thickening of pericardium noted anteriorly. No mediastinal or hilar mass. No adenopathy. No evidence of aortic aneurysm. Pulmonary arteries do not appear enlarged. There is a calcified granuloma in the right lower lobe. Mild scarring right middle lobe inferiorly. No lobar consolidation or collapse. No suspicious pulmonary nodules.. No pleural effusions. Upper abdominal images High-resolution images show mild scarring in the right middle lobe. No evidence of bronchiectasis or interstitial lung disease. There is an 18 mm hypoechoic attenuating nodule in the left lobe of the thyroid gland may be better evaluated with ultrasound. IMPRESSION: 1. No acute finding. 2. Mild scarring in the right middle lobe 3. No evidence of interstitial lung disease. 4. 18 mm left thyroid nodule
== END ==
LOC: RAD 10:19
PROVIDERS: Internal Medicine
DX: R06.02 Shortness of breath (principal); R07.9 Chest pain, unspecified; I25.10 Atherosclerotic heart disease of native coronary artery without angina pectoris; Z86.711 Personal history of pulmonary embolism; Z86.718 Personal history of other venous thrombosis and embolism